=== PATIENT | male | born 1945 | race Caucasian/White ===

== ENCOUNTER 2021-11-27 11:09 | Outpatient (CLI) | payer MEDICARE, SELFPAY ==
[2021-11-27 10:42] LABS: Albumin* 4.9 g/dL (3.3-5.0)
[2021-11-27 10:43] LABS: Chloride* 102 mmol/L (96-114); Potassium* 4.8 mmol/L (3.6-5.1); Sodium* 140 mmol/L (135-149)
[2021-11-27 10:45] LABS: Bilirubin Total* 1.1 mg/dL (0.1-1.5); Carbon Dioxide* 26 mmol/L (20-32); Cholesterol* 170 mg/dL (90-199); Creatinine* 0.8 mg/dL (0.5-1.5); Estimated Glomerular Filt Rate 93 ml/min; Total Protein* 7.8 g/dL (6.0-8.3)
[2021-11-27 10:46] LABS: Alanine Aminotransferase* 29 U/L (4-50); Alkaline Phosphatase* 103 U/L (40-150); Aspartate Amino Transferase* 28 U/L (12-35); Blood Urea Nitrogen* 15 mg/dL (7-30); Calcium* 9.7 mg/dL (8.4-10.6); Glucose* 272 mg/dL (60-115); HDL Cholesterol* 44 mg/dL (>=40); LDL Cholesterol Calculated 30 mg/dL (<100); Triglycerides* 481 mg/dL (40-149)
[2021-11-27 11:12] LABS: PSA Screen* 0.56 ng/mL (0.10-4.00)
[2021-11-27 11:14] LABS: Microalbumin Creatinine Ratio 10 mg/g (0-30); Microalbumin Urine 2 mg/dL
== END 2021-11-27 11:10 | disposition home or self-care (01) ==
PROVIDERS: PCP Internal Medicine; Visit Provider Internal Medicine
DX: E78.5 Hyperlipidemia, unspecified (principal); E11.9 Type 2 diabetes mellitus without complications; Z12.5 Encounter for screening for malignant neoplasm of prostate; I10 Essential (primary) hypertension
CPT/HCPCS: 80053; 80061; 82043; 82570; 84153

== ENCOUNTER 2022-07-01 07:45 | Outpatient (CLI) | payer MEDICARE, SELFPAY | END 2022-07-01 07:46 | disposition home or self-care (01) | PROVIDERS: PCP Internal Medicine; Visit Provider Internal Medicine | DX: E11.9 Type 2 diabetes mellitus without complications (principal); I10 Essential (primary) hypertension; E78.5 Hyperlipidemia, unspecified | CPT/HCPCS: 80053; 80061; 82043; 82570 ==

== ENCOUNTER 2023-01-06 08:06 | Outpatient (CLI) | payer MEDICARE, SELFPAY | END 2023-01-06 08:07 | disposition home or self-care (01) | LOC: NFLDREF 01-07 11:43 | PROVIDERS: PCP Internal Medicine; Referring Provider Internal Medicine; Visit Provider Internal Medicine | DX: E11.9 Type 2 diabetes mellitus without complications (principal); E78.5 Hyperlipidemia, unspecified; I10 Essential (primary) hypertension; Z12.5 Encounter for screening for malignant neoplasm of prostate | CPT/HCPCS: 80053; 80061; 84153 ==

== ENCOUNTER 2023-03-23 07:22 | Day surgery (SDC) | payer MEDICARE, SELFPAY ==
[2023-03-23] MEDS: KETOROLAC OPHTH 0.5% 1 DROP EYE-LEFT ×3 (07:15→07:25)
[2023-03-23] MEDS: TETRACAINE 0.5% OPHTH 1 DROP EYE-LEFT ×2 (07:15→07:20)
--- OUTSIDE RECORDS SUMMARY | 2023-03-23 07:25 | XMS_ITS | Encounter Summary ---
Author Name Unknown Organization [facility] Address [address] [place] [address] Care Team Providers Care Cross Tie Tram Loader Name Role Phone Elsewhere, Pcp Primary Care Provider Unavailabl e Encounter Details Date Type Department Care Team (Latest Contact Info) Description 03/15/2023 Clinical Communication Department of Ophthalmology in [place], [place] [address] [place] [address] Madison Caicedo M.D. [address] [place] [phone] Social History Tobacco Use Types Packs/Day Years Used Date Smoking Tobacco: Never Smokeless Tobacco: Never Nutrition Answer Date Recorded Nutrition: EVOO Fat Source Unknown 05/01 Nutrition: Servings of Fruits/Vegetables per Day Not on file 05/01/2020 Dental Answer Date Recorded Dental: Regular Dentist Unknown 05/02/19 Sex and Gender Information Value Date Recorded Sex Assigned at Male 12/14/2022 12:21 PM CDT Gender Identity Male 12/14/2022 12:21 PM CDT Sexual Orientation Straight 12/14/2022 12 :21 PM CDT documented as of this encounter Miscellaneous Notes * Telephone Encounter - Destini Maldonado - 03/15/2023 1:02 PM CST Pt [phone], Mr. Arthur, is scheduled to see Dr. Caicedo on 04/20, but is having cataract surgery (elsewhere) that same day. Please advise when to reschedule pt (first available, or is a certain amount time needed between cataract surgery and follow up/inj?) Dr. Caicedo doesn't have anything available prior to 04/20. Thank you! *Inj schedulers, please call pt when able to reschedule. ING PRIZER documented in this encounter Plan of Treatment Upcoming Encounters Date Type Department Care Team (Latest Contact Info) Description 04/18/2023 1:10 PM BOOKING PRIZER Ancillary Procedure Department of Ophthalmology in [address] [phone] 04/18/2023 1:30 PM BOOKING PRIZER Appointment Outpatient Procedure Center in [address] [phone] Madison Caicedo M.D. [address] [place] [phone] Discharge Disposition: Home or Self Care 05/23/2023 9:45 AM CDT Clinical Communication Virtual Review in [address] [address] 05/26/2023 8:30 AM CDT Ancillary Procedure Department of Ophthalmology in [address] [phone] Madison Caicedo M.D. [address] [place] [phone] 05/26/2023 9:00 AM CDT Ancillary Procedure Department of Ophthalmology in [address] [phone] Madison Caicedo M.D. [address] [place] [phone] 05/26/2023 9:15 AM CDT Office Visit Department of Ophthalmology in [address] [phone] Madison Caicedo M.D. [address] [place] [phone] 05/26/2023 1:20 PM CDT Appointment Outpatient Procedure Center in [place], [place] [address] [place] [address] Madison Caicedo M.D. [address] [place] [phone] documented as of this encounter Visit Diagnoses Not on filedocumented in this encounter Care Teams Cross Tie Tram Loader Relationship Specialty Start Date End Date Elsewhere, Pcp PCP - General Family Medicine 02/17/17 documented as of this encounter
--- OUTSIDE RECORDS SUMMARY | 2023-03-23 07:25 | XMS_ITS ---
Author Name Unknown Organization [facility] Address [address] [place] [address] Care Team Providers Care Securities Supervisor Name Role Phone Unavailable Unavailable Unavailable Surgery Details Not on file Complications Check Surgery Details section. Procedure Estimated Blood Loss Check Surgery Details section. Procedure Findings Check Surgery Details section. Procedure Specimens Taken Check Surgery Details section.
--- OUTSIDE RECORDS SUMMARY | 2023-03-23 07:25 | XMS_ITS | Referral Summary ---
Author Name Unknown Organization [facility] Address [address] [place] [id number] Care Team Providers Care Station Operator Name Role Phone Elsewhere, Pcp Primary Care Provider Unavailabl e Source Comments Patient records contain information from all sites at [facility]. For routine questions regarding patient records, call [phone] during business hours, M-F 8:00 AM - 5:00 PM Central Time. Record requests for emergency care only can be directed to [phone] at any time.[facility] Encounters Date Type Department Care Team Description 03/16/2023 Orders Only Department of Ophthalmology in [place], [place] [address] [place] [phone] Sydnie Rivero, C.O.A. 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 Discharge Disposition: Home or Self Care 03/15/2023 Clinical Communication Department of Ophthalmology in [place], [place] [address] [place] [address] Madison Caicedo M.D. 03/15/2023 1:44 PM SPEECH PATHOLOGY ASSISTANT - 03/15/2023 1:45 PM SPEECH PATHOLOGY ASSISTANT Hospital Encounter Outpatient Procedure Center in [place], [place] [address] [place] [phone] Madison Caicedo M.D. 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 Discharge Disposition: Home or Self Care 02/15/2023 1:42 PM SPEECH PATHOLOGY ASSISTANT - 02/15/2023 2:28 PM SPEECH PATHOLOGY ASSISTANT Hospital Encounter Outpatient Procedure Center in [place], [place] [address] [place] [phone] Madison Caicedo M.D. 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 Discharge Disposition: Home or Self Care 01/18/2023 2:00 PM SPEECH PATHOLOGY ASSISTANT Ancillary Procedure Department of Ophthalmology in [place], [place] [address] [place] [phone] Madison Caicedo M.D. 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 Discharge Disposition: Home or Self Care 12/21/2022 2:20 PM CDT Ancillary Procedure Department of Ophthalmology in [place], [place] [address] [place] [phone] Madison Caicedo M.D. 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 0 05/07/2014 Active metFORMIN (FORTAMET) 500 mg 24 hr tablet Take 3 tablets by mouth 2 (two) times a day. 3 tablets in AM, 2 tablets in PM with meal 0 05/07/2014 Active ramipril (ALTACE) 10 mg capsule Take 2 capsules by mouth daily. 0 05/07/2014 Active simvastatin (ZOCOR) 40 mg tablet Take 1 tablet by mouth daily. 0 05/07/2014 Active polyvinyl alcohol (NU-TEARS) 1.4 % ophthalmic solution Administer 1 drop into both eyes as needed. 0 Active Jardiance 10 mg tablet Take 10 mg by mouth every morning. for diabetes 0 03/31/2022 Active blood sugar diagnostic strips every other day. 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) 1 drop right eye As needed 06/10/2022 06/09/2023 Active povidone-iodine 5 % ophthalmic solution 1 drop (BETADINE)Indications:D iabetes Mellitus Due To Underlying Condition With 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) 1 drop right eye As needed 06/10/2022 06/09/2023 Active carboxymethylcellulose 1 % ophthalmic solution 1 drop (THERATEARS)Indications :Diabetes Mellitus Due To Underlying Condition With 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) 1 drop right eye As needed 06/10/2022 06/09/2023 Active white petrolatum-mineral oil ophthalmic ointment 0.25 inchIndications:Diabete s Mellitus Due To Underlying Condition With 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) 0.25 inch right eye As needed 06/10/2022 06/09/2023 Active balanced salt solution ophthalmic irrigation 30 mL (BSS)Indications:Diabet es Mellitus Due To Underlying Condition With 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) 30 mL right eye As needed 06/10/2022 06/09/2023 Active tetracaine (PF) 0.5 % ophthalmic solution 1 drop (ALTACAINE)Indications: Diabetes Mellitus Due To Underlying Condition With 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) 1 drop right eye As needed 06/10/2022 06/09/2023 Active bevacizumab intraocular injection 1.25 mg (AVASTIN)Indications:Di abetes Mellitus Due To Underlying Condition With 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) 1.25 mg vtre As needed 03/15/2023 03/15/2023 Ended Active Problems Problem Noted Date Diagnosed Date Diabetes Mellitus Type 2 Wit h Moderate Nonproliferative Diabetic Retinopathy With Macular Edema Right Eye 10/13/2022 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 10/13/2022 Diabetes Mellitus Due To Und erlying Condition With Severe Nonproliferative Diabetic Retinopathy Without Macular Edema Left Eye Hyperglycemic 06/10/2022 Diabetes Mellitus Due To Und erlying Condition With 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 06/10/2022 Diabetes Mellitus Type 2 Wit h Mild Nonproliferative Diabetic Retinopathy With Macular Edema Hypoglycemic Bilateral 07/20/2016 Diabetes Mellitus Type 2 Macular Edema 7 Hypertension 03/16/2010 Overview: Hypertension Diabetes Mellitus Type 2 03/16/2010 Overview: Diabetes mellitus type II Resolved Problems Problem Noted Date Diagnosed Date Resolved Date Diabetes Mellitus Type 2 Wit h Mild Nonproliferative Diabetic Retinopathy With Macular Edema Right Eye 10/13/2022 10/13/2022 Immunizations Name Administration Dates Next Due Influenza, Unspecified 01/16/2010 Tetanus Toxoid, Adsorbed (discontinued) 04/11/19 06 Social History Tobacco Use Types Packs/Day Years Used Date Smoking Tobacco: Never Smokeless Tobacco: Never Tobacco Cessation:Counseling Given: Not Answered Nutrition Answer Date Recorded Nutrition: EVOO Fat Source Unknown 05/01 Nutrition: Servings of Fruits/Vegetables per Day Not on file 05/01/2020 Dental Answer Date Recorded Dental: Regular Dentist Unknown 05/02/19 Sex and Gender Information Value Date Recorded Sex Assigned at Male 12/14/2022 12:21 PM CDT Gender Identity Male 12/14/2022 12:21 PM CDT Sexual Orientation Straight 12/14/2022 12 :21 PM CDT Plan of Treatment Upcoming Encounters Date Type Department Care Team (Latest Contact Info) Description 04/18/2023 1:10 PM SPEECH PATHOLOGY ASSISTANT Ancillary Procedure Department of Ophthalmology in [place], [place] [address] [place] [phone] 04/18/2023 1:30 PM SPEECH PATHOLOGY ASSISTANT Appointment Outpatient Procedure Center in [place], [place] [address] [place] [phone] Madison Caicedo M.D. [address] [place] [phone] Discharge Disposition: Home or Self Care 05/23/2023 9:45 AM CDT Clinical Communication Virtual Review in [place], [place] [address] [place] [address] 05/26/2023 8:30 AM CDT Ancillary Procedure Department of Ophthalmology in [place], [place] [address] [place] [phone] Madison Caicedo M.D. [address] [place] [phone] 05/26/2023 9:00 AM CDT Ancillary Procedure Department of Ophthalmology in [address] [phone] Madison Caicedo M.D. [address] [place] [phone] 05/26/2023 9:15 AM CDT Office Visit Department of Ophthalmology in [place], [place] [address] [place] [phone] Madison Caicedo M.D. [address] [place] [phone] 05/26/2023 1:20 PM CDT Appointment Outpatient Procedure Center in [place], [place] [address] [place] [phone] Madison Caicedo M.D. 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) INTRAVITREAL INJECTION, PHARMACOLOGIC AGENT - OD - RIGHT EYE Routine 02/15/2023 2:29 PM SPEECH PATHOLOGY ASSISTANT 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) INTRAVITREAL INJECTION, PHARMACOLOGIC AGENT - OD - RIGHT EYE - RST GONDA SCHEDULING ORDER Routine 02/15/2023 1:42 PM SPEECH PATHOLOGY ASSISTANT 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) INTRAVITREAL INJECTION, PHARMACOLOGIC AGENT - OD - RIGHT EYE Routine 01/18/2023 2:54 PM SPEECH PATHOLOGY ASSISTANT 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) INTRAVITREAL INJECTION, PHARMACOLOGIC AGENT - OD - RIGHT EYE - RST GONDA SCHEDULING ORDER Routine 01/18/2023 1:38 PM SPEECH PATHOLOGY ASSISTANT 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) INTRAVITREAL INJECTION, PHARMACOLOGIC AGENT - OD - RIGHT EYE Routine 12/21/2022 2:50 PM CDT 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 - 03/15/2023 2:09 PM SPEECH PATHOLOGY ASSISTANT Pre-Procedure Verification Pre-procedure verification conducted to verify correct patient identity, procedure to be performed and, as applicable, correct side and site. Patient ID band validated and present. Patient consent obtained. 12/21/2022. Time Out Confirmed correct patient, procedure, site, and patient consented. Anesthesia Topical anesthesia was used. Pre/Post Procedure prep and meds used were Celluvisc 1-10 drops, Povidone 5% 1-10 drops, Povidone 10% swabs x 3 to lids and lashes, Proparacaine 0.5% 1-10 drops, Tetracaine 0.5% 1-10 drops. Procedure Details Injection: 1.25 mg bevacizumab 25 mg/mL ??Route: intravitreal, Site: Right Eye ??[facility]: 48803-886-42 Balanced salt solution irrigation to injected eye after the injection was Done. Hand motion was present. Count fingers was correct. Reviewed instructions and patient verbalizes understanding. Notes Patient oriented to outpatient procedure center. ??Reviewed process for scheduled procedure, and pain management including pain scale. Patient declines written post-procedure material or previously received brochure. ?? Information reviewed and understanding assessed by teach-back. ??Follow-up appointments discussed and return schedule given if requested. Avastin RE Lot # [id number] Exp. 04/08/23 Filemon Mendez M.D. OPH CLINIC PROCED URES * Intravitreal Injection, Pharmacologic Agent - OD - Right Eye (02/15/2023 2:29 PM SPEECH PATHOLOGY ASSISTANT) Narrative Bebe Duran M.D. - 02/15/2023 3:11 PM SPEECH PATHOLOGY ASSISTANT Pre-Procedure Verification Pre-procedure verification conducted to verify correct patient identity, procedure to be performed and, as applicable, correct side and site. Patient ID band validated and present. Patient consent obtained. 12/21/2022. Time Out Confirmed correct patient, procedure, site, and patient consented. Anesthesia Topical anesthesia was used. Pre/Post Procedure prep and meds used were Celluvisc 1-10 drops, Povidone 5% 1-10 drops, Povidone 10% swabs x 3 to lids and lashes, Proparacaine 0.5% 1-10 drops, Tetracaine 0.5% 1-10 drops. Procedure Details Injection: 1.25 mg bevacizumab 25 mg/mL ??Route: intravitreal, Site: Right Eye ??[facility]: 57951-905-69 Balanced salt solution irrigation to injected eye after the injection was Done. Hand motion was present. Count fingers was correct. Reviewed instructions and patient verbalizes understanding. Notes Patient oriented to outpatient procedure center. ??Reviewed process for scheduled procedure, and pain management including pain scale. Patient declines written post-procedure material or previously received brochure. ?? Information reviewed and understanding assessed by teach-back. ??Follow-up appointments discussed and return schedule given if requested. Avastin RE Lot # [id number] Exp. 03/23/23 Bebe Streeter M.D. OPH CLINIC PRO CEDURES * Intravitreal Injection, Pharmacologic Agent - OD - Right Eye (01/18/2023 2:54 PM SPEECH PATHOLOGY ASSISTANT) Narrative Rj Bowen M.D. - 01/18/2023 5:29 PM SPEECH PATHOLOGY ASSISTANT Pre-Procedure Verification Pre-procedure verification conducted to verify correct patient identity, procedure to be performed and, as applicable, correct side and site. Patient ID band validated and present. Patient consent obtained. 12/21/2022. Time Out Confirmed correct patient, procedure, site, and patient consented. Anesthesia Topical anesthesia was used. Pre/Post Procedure prep and meds used were Celluvisc 1-10 drops, Povidone 5% 1-10 drops, Povidone 10% swabs x 3 to lids and lashes, Proparacaine 0.5% 1-10 drops, Tetracaine 0.5% 1-10 drops. Procedure Details Injection: 1.25 mg bevacizumab 25 mg/mL ??Route: intravitreal, Site: Right Eye ??[place]: 23652-291-98 Balanced salt solution irrigation to injected eye after the injection was Done. Hand motion was present. Count fingers was correct. Reviewed instructions and patient verbalizes understanding. Notes Patient oriented to outpatient procedure center. ??Reviewed process for scheduled procedure, and pain management including pain scale. Patient declines written post-procedure material or previously received brochure. ?? Information reviewed and understanding assessed by teach-back. ??Follow-up appointments discussed and return schedule given if requested. Avastin RE Lot # [id number] Exp. 02/04/23 Rj Bowen M.D. OPH CLINIC PROCEDU RES * Intravitreal Injection, Pharmacologic Agent - OD - Right Eye (12/21/2022 2:50 PM CDT) Narrative Filemon Mendez M.D. - 12/21/2022 4:18 PM CDT Pre-Procedure Verification Pre-procedure verification conducted to verify correct patient identity, procedure to be performed and, as applicable, correct side and site. Patient ID band validated and present. Patient consent obtained. 12/21/2022. Time Out Confirmed correct patient, procedure, site, and patient consented. Anesthesia Topical anesthesia was used. Pre/Post Procedure prep and meds used were Celluvisc 1-10 drops, Povidone 5% 1-10 drops, Povidone 10% swabs x 3 to lids and lashes, Proparacaine 0.5% 1-10 drops, Tetracaine 0.5% 1-10 drops. Procedure Details Injection: 1.25 mg bevacizumab 25 mg/mL ??Route: intravitreal, Site: Right Eye ??[facility]: 41456-950-34 Balanced salt solution irrigation to injected eye after the injection was Done. Hand motion was present. Count fingers was correct. Reviewed instructions and patient verbalizes understanding. Notes Patient oriented to outpatient procedure center. ??Reviewed process for scheduled procedure, and pain management including pain scale. Patient declines written post-procedure material or previously received brochure. ?? Information reviewed and understanding assessed by teach-back. ??Follow-up appointments discussed and return schedule given if requested. Avastin RE Lot # [id number] Exp. 01/13/23 Filemon Mendez M.D. [facility] PROCED URES from Last 3 Months Care Teams Station Operator Relationship Specialty Start Date End Date Elsewhere, Pcp PCP - General Family Medicine 02/17/17
--- OUTSIDE RECORDS SUMMARY | 2023-03-23 07:25 | XMS_ITS | Encounter Summary ---
Author Name Unknown Organization [facility] Address [address] [place] [address] Care Team Providers Care Wire Puller Name Role Phone Elsewhere, Pcp Primary Care Provider Unavailabl e Encounter Details Date Type Department Care Team (Latest Contact Info) Description 03/15/2023 1:46 PM STOCK SELECTOR - 03/15/2023 11:59 PM STOCK SELECTOR Hospital Encounter Outpatient Procedure Center in [place], [place] [address] [place] [address] Filemon Mendez M.D. [address] [place] [address] Discharge Disposition: Home or Self Care Social History Tobacco Use Types Packs/Day Years [...] PM CDT documented as of this encounter Medications at Time of Discharge Medication Sig Dispensed Refills Start Date End Date aspirin [address] tablet Take 1 tablet by mouth daily. 0 05/07/2014 blood sugar diagnostic strips every other day. 0 03/31/2016 Jardiance 10 mg tablet Take 10 mg by mouth every morning. for diabetes 0 03/31/2022 metFORMIN (FORTAMET) 500 mg 24 hr tablet Take 3 tablets by mouth 2 (two) times a day. 3 tablets in AM, 2 tablets in PM with meal 0 05/07/2014 polyvinyl alcohol (NU-TEARS) 1.4 % ophthalmic solution Administer 1 drop into both eyes as needed. 0 ramipril (ALTACE) 10 mg capsule Take 2 capsules by mouth daily. 0 05/07/2014 simvastatin (ZOCOR) 40 mg tablet Take 1 tablet by mouth daily. 0 05/07/2014 documented as of this encounter Plan of Treatment Upcoming Encounters Date Type Department Care Team (Latest Contact Info) Description 04/18/2023 1:10 PM STOCK SELECTOR Ancillary Procedure Department of Ophthalmology in [address] [phone] 04/18/2023 1:30 PM STOCK SELECTOR Appointment Outpatient Procedure Center in [address] [address] Madison Caicedo M.D. [address] [place] [phone] Discharge Disposition: Home or Self Care 05/23/2023 9:45 AM CDT Clinical Communication Virtual Review in [place], [place] [address] [place] [address] 05/26/2023 8:30 AM CDT Ancillary Procedure Department of Ophthalmology in [address] [address] Madison Caicedo M.D. [address] [place] [phone] 05/26/2023 9:00 AM CDT Ancillary Procedure Department of Ophthalmology in [address] [address] Madison Caicedo M.D. [address] [place] [phone] 05/26/2023 9:15 AM CDT Office Visit Department of Ophthalmology in [place], [place] [address] [place] [address] Madison Caicedo M.D. [address] [place] [phone] 05/26/2023 1:20 PM CDT Appointment Outpatient Procedure Center in [place], [place] [address] [place] [address] Madison Caicedo M.D. 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 - 03/15/2023 2:09 PM STOCK SELECTOR Pre-Procedure Verification Pre-procedure verification conducted to verify [...] 25 mg/mL ??Route: intravitreal, Site: Right Eye ??[facility]: 62047-363-65 Balanced salt solution irrigation to injected eye [...] given if requested. Avastin RE Lot # [id number] Exp. 04/08/23 Filemon Mendez M.D. [facility] PROCED URES documented in this encounter Visit Diagnoses Not on filedocumented in this encounter Care Teams Wire Puller Relationship Specialty Start Date End Date Elsewhere, Pcp PCP - General Family Medicine 02/17/17 documented as of this encounter
--- OUTSIDE RECORDS SUMMARY | 2023-03-23 07:25 | XMS_ITS | Encounter Summary ---
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 [address] [place] [address] [facility] Referral ID Status Reason Start Date Expiration Date V isits Requested Visits Authorized [id number] Authorized 10/13/2022 10/13/2023 6 6 Encounter Details Date Type Department Care Team (Latest Contact Info) Description 03/15/2023 1:44 PM CREASING MACHINE OPERATOR - 03/15/2023 1:45 PM CREASING MACHINE OPERATOR Hospital Encounter Outpatient Procedure Center in [place], [place] [address] [place] [address] Madison Caicedo M.D. 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 [address] [place] [phone] Discharge Disposition: Home or Self Care 05/23/2023 9:45 AM CDT Clinical Communication Virtual Review in [place], [place] [address] [place] [address] 05/26/2023 8:30 AM CDT Ancillary Procedure Department of Ophthalmology in [address] [address] Madison Caicedo M.D. [address] [place] [phone] 05/26/2023 9:00 AM CDT Ancillary Procedure Department of Ophthalmology in [place], [place] [address] [place] [phone] Madison Caicedo M.D. [address] [place] [phone] 05/26/2023 9:15 AM CDT Office Visit Department of Ophthalmology in [address] [address] Madison Caicedo M.D. [address] [place] [phone] 05/26/2023 1:20 PM CDT Appointment Outpatient Procedure Center in [address] [address] Madison Caicedo M.D. 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 - 03/15/2023 2:09 PM CREASING MACHINE OPERATOR Pre-Procedure Verification Pre-procedure verification conducted to verify [...] 25 mg/mL ??Route: intravitreal, Site: Right Eye ??[facility]: [address]6498-200-65 Balanced salt solution irrigation to injected eye [...] given if requested. Avastin RE Lot # [id number] Exp. 04/08/23 Filemon Mendez M.D. 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) documented in this encounter Administered Medications Active Administered Medications - up to 3 most recent administrations Medication Order MAR Action Action Date Dose Rate Site balanced salt solution ophthalmic irrigation 30 mL (BSS) 30 mL, right eye, As needed, DIRECTED OPHTHALMIC IN OR, Starting on [facility] 06/10/22 at 0918, For 365 days Given 03/15/2023 1:47 PM CREASING MACHINE OPERATOR 30 mL Given 02/15/2023 2:30 PM CREASING MACHINE OPERATOR 30 mL Given 01/18/2023 2:55 PM CREASING MACHINE OPERATOR 30 mL carboxymethylcellulose 1 % ophthalmic solution 1 drop (THERATEARS) 1 drop, right eye, As needed, dry eyes, DIRECTED OPHTHALMIC IN OR, Starting on [facility] 06/10/22 at 0918, For 365 days Given 03/15/2023 1:48 PM CREASING MACHINE OPERATOR 1 drop Given 02/15/2023 2:30 PM CREASING MACHINE OPERATOR 1 drop Given 01/18/2023 2:55 PM CREASING MACHINE OPERATOR 1 drop povidone-iodine 5 % ophthalmic solution 1 drop (BETADINE) 1 drop, right eye, As needed, irrigation, DIRECTED OPHTHALMIC IN OR, Starting on [facility] 06/10/22 at 0918, For 365 days, Irrigate ocular and periocular region and leave for 2 mins; then flush with sterile saline solution. Given 03/15/2023 1:48 PM CREASING MACHINE OPERATOR 1 drop Given 02/15/2023 2:30 PM CREASING MACHINE OPERATOR 1 drop Given 01/18/2023 2:55 PM CREASING MACHINE OPERATOR 1 drop proparacaine 0.5 % ophthalmic solution 1 drop (ALCAINE) 1 drop, right eye, As needed, DIRECTED OPHTHALMIC IN OR, Starting on [facility] 06/10/22 at 0918, For 365 days Given 03/15/2023 1:48 PM CREASING MACHINE OPERATOR 1 drop Given 02/15/2023 2:30 PM CREASING MACHINE OPERATOR 1 drop Given 01/18/2023 2:55 PM CREASING MACHINE OPERATOR 1 drop tetracaine (PF) 0.5 % ophthalmic solution 1 drop (ALTACAINE) 1 drop, right eye, As needed, DIRECTED OPHTHALMIC IN OR, Starting on [facility] 06/10/22 at 0918, For 365 days Given 03/15/2023 1:47 PM CREASING MACHINE OPERATOR 1 drop Given 02/15/2023 2:30 PM CREASING MACHINE OPERATOR 1 drop Given 01/18/2023 2:55 PM CREASING MACHINE OPERATOR 1 drop Inactive Administered Medications - up to 3 most recent administrations Medication Order MAR Action Action Date Dose Rate Site bevacizumab intraocular injection 1.25 mg (AVASTIN) 1.25 mg, intravitreal, As needed, DIRECTED OPHTHALMIC IN OR, Starting on Tue03/15/23 at 1409, Inject into right eye. Given 03/15/2023 2:09 PM CREASING MACHINE OPERATOR 1.25 mg Right Eye documented in this encounter Care Teams Information Consultant Relationship Specialty Start Date End Date Elsewhere, Pcp PCP - General Family Medicine 02/17/17 documented as of this encounter
--- OUTSIDE RECORDS SUMMARY | 2023-03-23 07:25 | XMS_ITS | Encounter Summary ---
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 [address] [place] [address] [facility] Referral ID Status Reason Start Date Expiration Date Visits Re quested Visits Authorized [id number] Closed 10/13/2022 10/13/2023 5 5 Encounter Details Date Type Department Care Team (Latest Contact Info) Description 03/15/2023 1:40 PM SUPERINTENDENT REFUSE DISPOSAL Ancillary Procedure Department of Ophthalmology in [place], [place] [address] [place] [phone] Madison Caicedo M.D. 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 [address] [place] [phone] Discharge Disposition: Home or Self Care 05/23/2023 9:45 AM CDT Clinical Communication Virtual Review in [address] [address] 05/26/2023 8:30 AM CDT Ancillary Procedure Department of Ophthalmology in [address] [address] Madison Caicedo M.D. [address] [place] [phone] 05/26/2023 9:00 AM CDT Ancillary Procedure Department of Ophthalmology in [address] [phone] Madison Caicedo M.D. [address] [place] [phone] 05/26/2023 9:15 AM CDT Office Visit Department of Ophthalmology in [address] [address] Madison Caicedo M.D. [address] [place] [phone] 05/26/2023 1:20 PM CDT Appointment Outpatient Procedure Center in [place], [place] [address] [place] [address] Madison Caicedo M.D. 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
--- OUTSIDE RECORDS SUMMARY | 2023-03-23 07:25 | XMS_ITS | Clinical Summary ---
Author Name Unknown Organization [facility] Address [address] [place] [address] Care Team Providers Care Box Blank Machine Feeder Name Role Phone Elsewhere, Pcp Primary Care Provider Unavailabl e Source Comments Patient records contain information from all sites at [facility]. For routine questions regarding patient records, call [phone] during business hours, M-F 8:00 AM - 5:00 PM Central Time. Record requests for emergency care only can be directed to [phone] at any time.[facility] Allergies No known active allergies Medications Medication [...] strips every other day. 0 03/31/2016 [facility] Clinic, or Other Facility Administered [...] With Macular Edema Right Eye 10/13/2022 10/13/2022 Encounters Date Type Department Care Team Description 03/16/2023 Orders Only Department of Ophthalmology in [place], [place] [address] [place] [phone] Sydnie Rivero C.O.A. 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 Discharge Disposition: Home or Self Care 03/15/2023 1:44 PM LOCKER OPERATOR - 03/15/2023 1:45 PM LOCKER OPERATOR Hospital Encounter Outpatient Procedure Center in [place], [place] [address] [place] [address] Madison Caicedo M.D. 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 Discharge Disposition: Home or Self Care 02/15/2023 2:00 PM LOCKER OPERATOR Ancillary Procedure Department of Ophthalmology in [place], [place] [address] [place] [phone] Madison Caicedo M.D. 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 Discharge Disposition: Home or Self Care 01/18/2023 2:00 PM LOCKER OPERATOR Ancillary Procedure Department of Ophthalmology in [address] [address] aMdison Caicedo M.D. 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 Discharge Disposition: Home or Self Care 12/21/2022 2:20 PM CDT Ancillary Procedure Department of Ophthalmology in [place], [place] [address] [place] [address] Madison Caicedo M.D. 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) Discharge Disposition: Home or Self Care from Last 3 Months Immunizations Name Administration Dates Next Due Influenza, Unspecified 01/16/2010 Tetanus Toxoid, Adsorbed (discontinued) 04/11/19 06 Family History Medical History Relation Name Comments Amblyopia Neg Hx Blindness Neg Hx Cataracts Neg Hx Glaucoma Neg Hx Macular degeneration Neg Hx Retinal degeneration Neg Hx Retinal detachment Neg Hx Strabismus Neg Hx Vision loss Neg Hx Social History Tobacco Use Types Packs/Day Years [...] (Latest Contact Info) Description 04/18/2023 1:10 PM LOCKER OPERATOR Ancillary Procedure Department of Ophthalmology in [address] [address] 04/18/2023 1:30 PM LOCKER OPERATOR Appointment Outpatient Procedure Center in [place], [place] [address] [place] [phone] Madison Caicedo M.D. [address] [place] [phone] Discharge Disposition: Home or Self Care 05/23/2023 9:45 AM CDT Clinical Communication Virtual Review in [place], [place] 200 [place] [address] 05/26/2023 8:30 AM CDT Ancillary Procedure Department of Ophthalmology in [address] [address] Madison Caicedo M.D. [address] [place] [phone] 05/26/2023 9:00 AM CDT Ancillary Procedure Department of Ophthalmology in [address] [address] Madison Caicedo M.D. [address] [place] [phone] 05/26/2023 9:15 AM CDT Office Visit Department of Ophthalmology in [address] [address] Madison Caicedo M.D. [address] [place] [phone] 05/26/2023 1:20 PM CDT Appointment Outpatient Procedure Center in [place], [place] [address] [place] [phone] Madison Caicedo M.D. [address] [place] [phone] Health Maintenance Due Date Last Done Comments CT Colonography 1947 Cologuard 1947 Colonoscopy 1947 Colorectal Cancer Screening 1947 Creatinine Level (Kidney Fun ction Test) 1947 Diabetic Office Visit with F oot Exam 1947 FIT 1947 Hemoglobin A1C 1947 Hepatitis C Screening 1947 Lipid (Cholesterol) Screening 1947 Office Visit for Blood Press ure Check / Re-check 1947 Potassium Level 1947 Sodium Level 1947 Urine Albumin 1947 Zoster Vaccines (1 of 2) 07/03/1997 Hepatitis B Vaccines (1 of 3 - Risk 3-dose series) 2007 Pneumococcal vaccine (65+ ye ars) (3 of 3 - PPSV23 or PCV20) 08/21/2015 08/20/2014, 12/06/2006 Depression Screening (Annual PHQ-2) 02/28/2023 Dilated Eye Exam 10/14/2023 10/13/2022, 12/2022, 06/08/2022, Additional history exists DTaP,Tdap,and Td Vaccines (3 - Td or Tdap) 03/08/2032 03/08/2022, 07/21/2012 Influenza Vaccine Completed 11/25/2022, , 12/08/2020, Additional history exists COVID-19 Vaccine Completed 12/11/2022, , 12/19/2020, Additional history exists Fall Risk Screen (Annual) Completed 03/15/2023 Procedures Procedure Name Priority Date/Time Associated Diagnosis Comments INTRAVITREAL INJECTION, PHARMACOLOGIC AGENT - OD - RIGHT EYE Routine 03/15/2023 1:46 PM LOCKER OPERATOR 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) INTRAVITREAL INJECTION, PHARMACOLOGIC AGENT - OD - RIGHT EYE - RST GONDA SCHEDULING ORDER Routine 03/15/2023 1:44 PM LOCKER OPERATOR 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) INTRAVITREAL INJECTION, PHARMACOLOGIC AGENT - OD - RIGHT EYE Routine 02/15/2023 2:29 PM LOCKER OPERATOR 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) INTRAVITREAL INJECTION, PHARMACOLOGIC AGENT - OD - RIGHT EYE - RST GONDA SCHEDULING ORDER Routine 02/15/2023 1:42 PM LOCKER OPERATOR 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 - 03/15/2023 2:09 PM LOCKER OPERATOR Pre-Procedure Verification Pre-procedure verification conducted to [...] 25 mg/mL ??Route: intravitreal, Site: Right Eye ??[facility]: 37480-533-18 Balanced salt solution irrigation to injected eye [...] given if requested. Avastin RE Lot # [id number] Exp. 04/08/23 Filemon Mendez M.D. [facility] PROCED [facility] * Intravitreal Injection, Pharmacologic Agent - OD - Right Eye (02/15/2023 2:29 PM LOCKER OPERATOR) Narrative Bebe Duran M.D. - 02/15/2023 3:11 PM LOCKER OPERATOR Pre-Procedure Verification Pre-procedure verification conducted to [...] 25 mg/mL ??Route: intravitreal, Site: Right Eye ??[facility]: 14447-365-43 Balanced salt solution irrigation to injected eye [...] given if requested. Avastin RE Lot # [id number] Exp. 03/23/23 Bebe Streeter M.D. [facility] PRO CEDURES * Intravitreal Injection, Pharmacologic Agent - OD - Right Eye (01/18/2023 2:54 PM LOCKER OPERATOR) Narrative Rj Bowen M.D. - 01/18/2023 5:29 PM LOCKER OPERATOR Pre-Procedure Verification Pre-procedure verification conducted to [...] 25 mg/mL ??Route: intravitreal, Site: Right Eye ??[facility]: 69896-492-14 Balanced salt solution irrigation to injected eye [...] given if requested. Avastin RE Lot # [id number] Exp. 02/04/23 Rj Bowen M.D. [facility] PROCEDU RES * Intravitreal Injection, Pharmacologic [...] 25 mg/mL ??Route: intravitreal, Site: Right Eye ??[facility]: 58384-973-68 Balanced salt solution irrigation to injected eye [...] given if requested. Avastin RE Lot # [id number] Exp. 01/13/23 Filemon Mendez M.D. [facility] PROCED URES from Last 3 Months Care Teams Box Blank Machine Feeder Relationship Specialty Start Date End Date Elsewhere, Pcp PCP - General Family Medicine 02/17/17
--- OUTSIDE RECORDS SUMMARY | 2023-03-23 07:25 | XMS_ITS | Encounter Summary ---
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 [address] [place] [phone] Discharge Disposition: Home or Self Care 05/23/2023 9:45 AM CDT Clinical Communication Virtual Review in [address] [address] 05/26/2023 8:30 AM CDT Ancillary Procedure Department of Ophthalmology in [address] [address] Madison Caicedo M.D. [address] [place] [phone] 05/26/2023 9:00 AM CDT Ancillary Procedure Department of Ophthalmology in [address] [address] Madison Caicedo M.D. [address] [place] [phone] 05/26/2023 9:15 AM CDT Office Visit Department of Ophthalmology in [address] [phone] Madison Caicedo M.D. [address] [place] [address] 05/26/2023 1:20 PM CDT Appointment Outpatient Procedure Center in [place], [place] [address] [place] [address] Madison Caicedo M.D. 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
--- OUTSIDE RECORDS SUMMARY | 2023-03-23 07:26 | XMS_ITS | Encounter Summary ---
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 [address] [place] [address] [facility] Referral ID Status Reason Start Date Expiration Date Visits Re quested Visits Authorized [id number] Closed 10/13/2022 10/13/2023 5 5 Encounter Details Date Type Department Care Team (Latest Contact Info) Description 11/17/2022 2:40 PM CDT Ancillary Procedure Department of Ophthalmology in [place], [place] [address] [place] [phone] Madison Caicedo M.D. [address] [place] [address] Diabetes Mellitus Type 2 With [...] (Latest Contact Info) Description 04/18/2023 1:10 PM BUILDING SURVEYOR Ancillary Procedure Department of Ophthalmology in [address] [address] 04/18/2023 1:30 PM BUILDING SURVEYOR Appointment Outpatient Procedure Center in [address] [address] Madison Caicedo M.D. [address] [place] [phone] Discharge Disposition: Home or Self Care 05/23/2023 9:45 AM CDT Clinical Communication Virtual Review in [address] [address] 05/26/2023 8:30 AM CDT Ancillary Procedure Department of Ophthalmology in [address] [address] Madison Caicedo M.D. [address] [place] [phone] 05/26/2023 9:00 AM CDT Ancillary Procedure Department of Ophthalmology in [address] [address] Madison Caicedo M.D. [address] [place] [phone] 05/26/2023 9:15 AM CDT Office Visit Department of Ophthalmology in [address] [address] Madison Caicedo M.D. [address] [place] [phone] 05/26/2023 1:20 PM CDT Appointment Outpatient Procedure Center in [place], [place] [address] [place] [address] Madison Caicedo M.D. 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
--- OUTSIDE RECORDS SUMMARY | 2023-03-23 07:26 | XMS_ITS | Encounter Summary ---
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 [address] [place] [address] [facility] Referral ID Status Reason Start Date Expiration Date Visits Re quested Visits Authorized [id number] Closed 10/13/2022 10/13/2023 5 5 Encounter Details Date Type Department Care Team (Latest Contact Info) Description 12/21/2022 2:20 PM CDT Ancillary Procedure Department of Ophthalmology in [place], [place] [address] [place] [phone] Madison Caicedo M.D. [address] [place] [address] Diabetes Mellitus Type 2 With [...] (Latest Contact Info) Description 04/18/2023 1:10 PM GROUNDMAN/LINEMAN Ancillary Procedure Department of Ophthalmology in [address] [address] 04/18/2023 1:30 PM GROUNDMAN/LINEMAN Appointment Outpatient Procedure Center in [address] [phone] Madison Caicedo M.D. [address] [place] [phone] Discharge Disposition: Home or Self Care 05/23/2023 9:45 AM CDT Clinical Communication Virtual Review in [address] [address] 05/26/2023 8:30 AM CDT Ancillary Procedure Department of Ophthalmology in [address] [address] Madison Caicedo M.D. [address] [place] [phone] 05/26/2023 9:00 AM CDT Ancillary Procedure Department of Ophthalmology in [address] [address] Madison Caicedo M.D. [address] [place] [phone] 05/26/2023 9:15 AM CDT Office Visit Department of Ophthalmology in [address] [address] Madison Caicedo M.D. [address] [place] [phone] 05/26/2023 1:20 PM CDT Appointment Outpatient Procedure Center in [place], [place] [address] [place] [address] Madison Caicedo M.D. 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
--- OUTSIDE RECORDS SUMMARY | 2023-03-23 07:26 | XMS_ITS | Encounter Summary ---
Author Name Unknown Organization [facility] Address [address] [place] [address] Care Team Providers Care Animal Laboratory Technician Name Role Phone Elsewhere, Pcp Primary Care Provider Unavailabl e Encounter Details Date Type Department Care Team (Latest Contact Info) Description 11/17/2022 3:03 PM CDT - 11/17/2022 11:59 PM CDT Hospital Encounter Outpatient Procedure Center in [place], [place] [address] [place] [address] Benitez Yuan M.D. [address] [place] [address] Discharge Disposition: Home or Self Care Social [...] (Latest Contact Info) Description 04/18/2023 1:10 PM LOADERS Ancillary Procedure Department of Ophthalmology in [address] [address] 04/18/2023 1:30 PM LOADERS Appointment Outpatient Procedure Center in [address] [address] Madison Caicedo M.D. [address] [place] [phone] Discharge Disposition: Home or Self Care 05/23/2023 9:45 AM CDT Clinical Communication Virtual Review in [place], [place] [address] [place] [address] 05/26/2023 8:30 AM CDT Ancillary Procedure Department of Ophthalmology in [address] [address] Madison Caicedo M.D. [address] [place] [phone] 05/26/2023 9:00 AM CDT Ancillary Procedure Department of Ophthalmology in [address] [address] Madison Caicedo M.D. [address] [place] [phone] 05/26/2023 9:15 AM CDT Office Visit Department of Ophthalmology in [place], [place] [address] [place] [address] Madison Caicedo M.D. [address] [place] [address] 05/26/2023 1:20 PM CDT Appointment Outpatient Procedure Center in [place], [place] [address] [place] [address] Madison Caicedo M.D. 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 - 11/17/2022 4:40 PM CDT Pre-Procedure Verification Pre-procedure verification conducted to verify correct patient identity, procedure to be performed and, as applicable, correct side and site. Patient ID band validated and present. Patient consent obtained. 06/10/2022. Time Out Confirmed correct patient, procedure, site, and patient consented. Anesthesia Topical anesthesia was used. Pre/Post Procedure prep and meds used were Celluvisc 1-10 drops, Povidone 5% 1-10 drops, Povidone 10% swabs x 3 to lids and lashes, Proparacaine 0.5% 1-10 drops, Tetracaine 0.5% 1-10 drops. Procedure Details Injection: 1.25 mg bevacizumab 25 mg/mL ??Route: intravitreal, Site: Right Eye ??[facility]: 15381-117-84 Balanced salt solution irrigation to injected eye [...] discussed and return schedule given if requested. Lot [id number] exp 12/28/2022 Benitez Yuan M.D. [facility] PRO CEDURES documented in this encounter Visit Diagnoses Not on filedocumented in this encounter Care Teams Animal Laboratory Technician Relationship Specialty Start Date End Date Elsewhere, Pcp PCP - General Family Medicine 02/17/17 documented as of this encounter
--- OUTSIDE RECORDS SUMMARY | 2023-03-23 07:26 | XMS_ITS | Encounter Summary ---
Author Name Unknown Organization [facility] Address [address] [place] [address] Care Team Providers Care Gun Examiner Name Role Phone Elsewhere, Pcp Primary Care Provider Unavailabl e Encounter Details Date Type Department Care Team (Latest Contact Info) Description 02/15/2023 2:29 PM STEAM CONDITIONER FILLING - 02/15/2023 11:59 PM STEAM CONDITIONER FILLING Hospital Encounter Outpatient Procedure Center in [place], [place] [address] [place] [address] Bebe Duran M.D. [address] [place] [address] Discharge Disposition: Home or Self Care Social [...] (Latest Contact Info) Description 04/18/2023 1:10 PM STEAM CONDITIONER FILLING Ancillary Procedure Department of Ophthalmology in [address] [address] 04/18/2023 1:30 PM STEAM CONDITIONER FILLING Appointment Outpatient Procedure Center in [address] [address] Madison Caicedo M.D. [address] [place] [phone] Discharge Disposition: Home or Self Care 05/23/2023 9:45 AM CDT Clinical Communication Virtual Review in [place], [place] 200 [place] [address] 05/26/2023 8:30 AM CDT Ancillary Procedure Department of Ophthalmology in [address] [address] Madison Caicedo M.D. [address] [place] [phone] 05/26/2023 9:00 AM CDT Ancillary Procedure Department of Ophthalmology in [address] [address] Madison Caicedo M.D. [address] [place] [phone] 05/26/2023 9:15 AM CDT Office Visit Department of Ophthalmology in [place], [place] [address] [place] [address] Madison Caicedo M.D. [address] [place] [address] 05/26/2023 1:20 PM CDT Appointment Outpatient Procedure Center in [place], [place] [address] [place] [address] Madison Caicedo M.D. 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 - 02/15/2023 3:11 PM STEAM CONDITIONER FILLING Pre-Procedure Verification Pre-procedure verification conducted to verify [...] 25 mg/mL ??Route: intravitreal, Site: Right Eye ??[facility]: 40488-958-00 Balanced salt solution irrigation to injected eye [...] given if requested. Avastin RE Lot # [id number] Exp. 03/23/23 Bebe Streeter M.D. [facility] PRO CEDURES documented in this encounter Visit Diagnoses Not on filedocumented in this encounter Care Teams Gun Examiner Relationship Specialty Start Date End Date Elsewhere, Pcp PCP - General Family Medicine 02/17/17 documented as of this encounter
--- OUTSIDE RECORDS SUMMARY | 2023-03-23 07:26 | XMS_ITS | Encounter Summary ---
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 [address] [place] [address] [facility] Referral ID Status Reason Start Date Expiration Date V isits Requested Visits Authorized [id number] Authorized 10/13/2022 10/13/2023 6 6 Encounter Details Date Type Department Care Team (Latest Contact Info) Description 12/21/2022 2:16 PM CDT - 12/21/2022 2:49 PM CDT Hospital Encounter Outpatient Procedure Center in [place], [place] [address] [place] [address] Madison Caicedo M.D. [address] [place] [address] Diabetes Mellitus Type 2 With Moderate Nonproliferative [...] (Latest Contact Info) Description 04/18/2023 1:10 PM TOOLROOM CHECKER Ancillary Procedure Department of Ophthalmology in [place], [place] [address] [place] [phone] 04/18/2023 1:30 PM TOOLROOM CHECKER Appointment Outpatient Procedure Center in [address] [address] Madison Caicedo M.D. [address] [place] [phone] Discharge Disposition: Home or Self Care 05/23/2023 9:45 AM CDT Clinical Communication Virtual Review in [place], [place] 200 [place] [address] 05/26/2023 8:30 AM CDT Ancillary Procedure Department of Ophthalmology in [address] [address] Madison Caicedo M.D. [address] [place] [phone] 05/26/2023 9:00 AM CDT Ancillary Procedure Department of Ophthalmology in [address] [address] Madison Caicedo M.D. [address] [place] [phone] 05/26/2023 9:15 AM CDT Office Visit Department of Ophthalmology in [address] [address] Madison Caicedo M.D. [address] [place] [phone] 05/26/2023 1:20 PM CDT Appointment Outpatient Procedure Center in [address] [address] Madison Caicedo M.D. [address] [place] [phone] documented as of this encounter Procedures Procedure [...] - Right Eye (12/21/2022 2:50 PM CDT) Filemon Ying M.D. - 12/21/2022 4:18 PM CDT Pre-Procedure [...] 25 mg/mL ??Route: intravitreal, Site: Right Eye ??[facility]: 43413-996-87 Balanced salt solution irrigation to injected eye [...] given if requested. Avastin RE Lot # [id number] Exp. 01/13/23 Filemon Mendez M.D. OPHTH CLINIC PROCED URES [...] needed, DIRECTED OPHTHALMIC IN OR, Starting on [facility] 06/10/22 at 0918, For 365 days Given 03/15/2023 1:47 PM TOOLROOM CHECKER 30 mL Given 02/15/2023 2:30 PM TOOLROOM CHECKER 30 mL Given 01/18/2023 2:55 PM TOOLROOM CHECKER 30 mL carboxymethylcellulose 1 % ophthalmic solution 1 drop (THERATEARS) 1 drop, right eye, As needed, dry eyes, DIRECTED OPHTHALMIC IN OR, Starting on [facility] 06/10/22 at 0918, For 365 days Given 03/15/2023 1:48 PM TOOLROOM CHECKER 1 drop Given 02/15/2023 2:30 PM TOOLROOM CHECKER 1 drop Given 01/18/2023 2:55 PM TOOLROOM CHECKER 1 drop povidone-iodine 5 % ophthalmic solution 1 drop (BETADINE) 1 drop, right eye, As needed, irrigation, DIRECTED OPHTHALMIC IN OR, Starting on [facility] 06/10/22 at 0918, For 365 days, Irrigate ocular and periocular region and leave for 2 mins; then flush with sterile saline solution. Given 03/15/2023 1:48 PM TOOLROOM CHECKER 1 drop Given 02/15/2023 2:30 PM TOOLROOM CHECKER 1 drop Given 01/18/2023 2:55 PM TOOLROOM CHECKER 1 drop proparacaine 0.5 % ophthalmic solution 1 drop (ALCAINE) 1 drop, right eye, As needed, DIRECTED OPHTHALMIC IN OR, Starting on [facility] 06/10/22 at 0918, For 365 days Given 03/15/2023 1:48 PM TOOLROOM CHECKER 1 drop Given 02/15/2023 2:30 PM TOOLROOM CHECKER 1 drop Given 01/18/2023 2:55 PM TOOLROOM CHECKER 1 drop tetracaine (PF) 0.5 % ophthalmic solution 1 drop (ALTACAINE) 1 drop, right eye, As needed, DIRECTED OPHTHALMIC IN OR, Starting on It[facility] 06/10/22 at 0918, For 365 days Given 03/15/2023 1:47 PM TOOLROOM CHECKER 1 drop Given 02/15/2023 2:30 PM TOOLROOM CHECKER 1 drop Given 01/18/2023 2:55 PM TOOLROOM CHECKER 1 drop Inactive Administered Medications - up to 3 most recent administrations Medication Order MAR Action Action Date Dose Rate Site bevacizumab intraocular injection 1.25 mg (AVASTIN) 1.25 mg, intravitreal, As needed, DIRECTED OPHTHALMIC IN OR, Starting on Tue12/21/22 at 1618, Inject into right eye. Given 12/21/2022 4:18 PM CDT 1.25 mg Right Eye documented in this encounter Care Teams Tool And Die Repairer Relationship Specialty Start Date End Date Elsewhere, Pcp PCP - General Family Medicine 02/17/17 documented as of this encounter
--- OUTSIDE RECORDS SUMMARY | 2023-03-23 07:26 | XMS_ITS | Encounter Summary ---
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 [address] [place] [address] [facility] Referral ID Status Reason Start Date Expiration Date V isits Requested Visits Authorized [id number] Authorized 10/13/2022 10/13/2023 6 6 Encounter Details Date Type Department Care Team (Latest Contact Info) Description 01/18/2023 1:38 PM CREDIT RISK MODELER - 01/18/2023 2:53 PM CREDIT RISK MODELER Hospital Encounter Outpatient Procedure Center in [place], [place] [address] [place] [address] Madison Caicedo M.D. [address] [place] [phone] Diabetes Mellitus Type 2 With Moderate Nonproliferative [...] (Latest Contact Info) Description 04/18/2023 1:10 PM CREDIT RISK MODELER Ancillary Procedure Department of Ophthalmology in [place], [place] [address] [place] [phone] 04/18/2023 1:30 PM CREDIT RISK MODELER Appointment Outpatient Procedure Center in [place], [place] [address] [place] [phone] Madison Caicedo M.D. [address] [place] [phone] Discharge Disposition: Home or Self Care 05/23/2023 9:45 AM CDT Clinical Communication Virtual Review in [place], [place] 200 [place] [address] 05/26/2023 8:30 AM CDT Ancillary Procedure Department of Ophthalmology in [address] [address] Madison Caicedo M.D. [address] [place] [phone] 05/26/2023 9:00 AM CDT Ancillary Procedure Department of Ophthalmology in [place], [place] [address] [place] [phone] Madison Caicedo M.D. [address] [place] [phone] 05/26/2023 9:15 AM CDT Office Visit Department of Ophthalmology in [address] [address] Madison Caicedo M.D. [address] [place] [phone] 05/26/2023 1:20 PM CDT Appointment Outpatient Procedure Center in [address] [address] Madison Caicedo M.D. 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 - 01/18/2023 5:29 PM CREDIT RISK MODELER Pre-Procedure Verification Pre-procedure verification conducted to verify [...] 25 mg/mL ??Route: intravitreal, Site: Right Eye ??[facility]: 95947-996-01 Balanced salt solution irrigation to injected eye [...] given if requested. Avastin RE Lot # [id number] Exp. 02/04/23 Rj Bowen M.D. OPHTH CLINIC PROCEDU RES documented in this encounter Visit Diagnoses Diagnosis [...] needed, DIRECTED OPHTHALMIC IN OR, Starting on [facility] 06/10/22 at 0918, For 365 days Given 03/15/2023 1:47 PM CREDIT RISK MODELER 30 mL Given 02/15/2023 2:30 PM CREDIT RISK MODELER 30 mL Given 01/18/2023 2:55 PM CREDIT RISK MODELER 30 mL carboxymethylcellulose 1 % ophthalmic solution 1 drop (THERATEARS) 1 drop, right eye, As needed, dry eyes, DIRECTED OPHTHALMIC IN OR, Starting on [facility] 06/10/22 at 0918, For 365 days Given 03/15/2023 1:48 PM CREDIT RISK MODELER 1 drop Given 02/15/2023 2:30 PM CREDIT RISK MODELER 1 drop Given 01/18/2023 2:55 PM CREDIT RISK MODELER 1 drop povidone-iodine 5 % ophthalmic solution 1 drop (BETADINE) 1 drop, right eye, As needed, irrigation, DIRECTED OPHTHALMIC IN OR, Starting on Itzel 06/10/22 at 0918, For 365 days, Irrigate ocular and periocular region and leave for 2 mins; then flush with sterile saline solution. Given 03/15/2023 1:48 PM CREDIT RISK MODELER 1 drop Given 02/15/2023 2:30 PM CREDIT RISK MODELER 1 drop Given 01/18/2023 2:55 PM CREDIT RISK MODELER 1 drop proparacaine 0.5 % ophthalmic solution 1 drop (ALCAINE) 1 drop, right eye, As needed, DIRECTED OPHTHALMIC IN OR, Starting on [facility] 06/10/22 at 0918, For 365 days Given 03/15/2023 1:48 PM CREDIT RISK MODELER 1 drop Given 02/15/2023 2:30 PM CREDIT RISK MODELER 1 drop Given 01/18/2023 2:55 PM CREDIT RISK MODELER 1 drop tetracaine (PF) 0.5 % ophthalmic solution 1 drop (ALTACAINE) 1 drop, right eye, As needed, DIRECTED OPHTHALMIC IN OR, Starting on [facility] 06/10/22 at 0918, For 365 days Given 03/15/2023 1:47 PM CREDIT RISK MODELER 1 drop Given 02/15/2023 2:30 PM CREDIT RISK MODELER 1 drop Given 01/18/2023 2:55 PM CREDIT RISK MODELER 1 drop Inactive Administered Medications - up to 3 most recent administrations Medication Order MAR Action Action Date Dose Rate Site bevacizumab intraocular injection 1.25 mg (AVASTIN) 1.25 mg, intravitreal, As needed, DIRECTED OPHTHALMIC IN OR, Starting on Tue01/18/23 at 1729, Inject into right eye. Given 01/18/2023 5:29 PM CREDIT RISK MODELER 1.25 mg Right Eye documented in this encounter Care Teams Washer Blanket Relationship Specialty Start Date End Date Elsewhere, Pcp PCP - General Family Medicine 02/17/17 documented as of this encounter
--- OUTSIDE RECORDS SUMMARY | 2023-03-23 07:26 | XMS_ITS | Encounter Summary ---
Author Name Unknown Organization [facility] Address [address] [place] [address] Care Team Providers Care [employer] Scout Name Role Phone Elsewhere, Pcp Primary Care Provider Unavailabl e Encounter Details Date Type Department Care Team (Latest Contact Info) Description 01/18/2023 2:54 PM HOME VISITOR HOME BASE HEAD START - 01/18/2023 11:59 PM HOME VISITOR HOME BASE HEAD START Hospital Encounter Outpatient Procedure Center in [place], [place] [address] [place] [address] Rj Bowen M.D. [address] [place] [address] Discharge Disposition: Home or Self Care Social [...] (Latest Contact Info) Description 04/18/2023 1:10 PM HOME VISITOR HOME BASE HEAD START Ancillary Procedure Department of Ophthalmology in [address] [phone] 04/18/2023 1:30 PM HOME VISITOR HOME BASE HEAD START Appointment Outpatient Procedure Center in [address] [phone] Madison Caicedo M.D. [address] [place] [phone] Discharge Disposition: Home or Self Care 05/23/2023 9:45 AM CDT Clinical Communication Virtual Review in [place], [place] [address] [place] [address] 05/26/2023 8:30 AM CDT Ancillary Procedure Department of Ophthalmology in [address] [address] Madison Caicedo M.D. [address] [place] [phone] 05/26/2023 9:00 AM CDT Ancillary Procedure Department of Ophthalmology in [address] [address] Madison Caicedo M.D. [address] [place] [phone] 05/26/2023 9:15 AM CDT Office Visit Department of Ophthalmology in [place], [place] [address] [place] [address] Madison Caicedo M.D. [address] [place] [phone] 05/26/2023 1:20 PM CDT Appointment Outpatient Procedure Center in [place], [place] [address] [place] [address] Madison Caicedo M.D. 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 - 01/18/2023 5:29 PM HOME VISITOR HOME BASE HEAD START Pre-Procedure Verification Pre-procedure verification conducted to verify [...] 25 mg/mL ??Route: intravitreal, Site: Right Eye ??[facility]: 90663-131-35 Balanced salt solution irrigation to injected eye [...] given if requested. Avastin RE Lot # [id number] Exp. 02/04/23 Rj Bowen M.D. [facility] PROCEDU RES documented in this encounter Visit Diagnoses Not on filedocumented in this encounter Care Teams [employer] Scout Relationship Specialty Start Date End Date Elsewhere, Pcp PCP - General Family Medicine 02/17/17 documented as of this encounter
--- OUTSIDE RECORDS SUMMARY | 2023-03-23 07:26 | XMS_ITS | Encounter Summary ---
Author Name Unknown Organization [facility] Address [address] [place] [address] Care Team Providers Care Training Developer Name Role Phone Elsewhere, Pcp Primary Care Provider Unavailabl e Encounter Details Date Type Department Care Team (Latest Contact Info) Description 02/09/2023 Orders Only Department of Ophthalmology in [place], [place] [address] [place] [address] Eliane Laura [address] [place] [address] Diabetes Mellitus Due To Underlying Condition With [...] (Latest Contact Info) Description 04/18/2023 1:10 PM WOOD PANEL INSPECTOR Ancillary Procedure Department of Ophthalmology in [place], [place] [address] [place] [address] 04/18/2023 1:30 PM WOOD PANEL INSPECTOR Appointment Outpatient Procedure Center in [place], [place] [address] [place] [phone] Madison Caicedo M.D. [address] [place] [phone] Discharge Disposition: Home or Self Care 05/23/2023 9:45 AM CDT Clinical Communication Virtual Review in [place], [place] 200 [place] [address] 05/26/2023 8:30 AM CDT Ancillary Procedure Department of Ophthalmology in [place], [place] [address] [place] [phone] Madison Caicedo M.D. [address] [place] [phone] 05/26/2023 9:00 AM CDT Ancillary Procedure Department of Ophthalmology in [place], [place] [address] [place] [phone] Madison Caicedo M.D. [address] [place] [phone] 05/26/2023 9:15 AM CDT Office Visit Department of Ophthalmology in [address] [address] Madison Caicedo M.D. [address] [place] [phone] 05/26/2023 1:20 PM CDT Appointment Outpatient Procedure Center in [place], [place] [address] [place] [phone] Madison Caicedo M.D. 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
--- OUTSIDE RECORDS SUMMARY | 2023-03-23 07:26 | XMS_ITS | Encounter Summary ---
Author Name Unknown Organization [facility] Address [address] [place] [address] Care Team Providers Care Biopharmaceutical Rep Name Role Phone Elsewhere, Pcp Primary Care Provider Unavailabl e Encounter Details Date Type Department Care Team (Latest Contact Info) Description 01/12/2023 Orders Only Department of Ophthalmology in [place], [place] [address] [place] [address] Eliane Laura [address] [place] [address] Diabetes Mellitus Due To Underlying Condition With [...] (Latest Contact Info) Description 04/18/2023 1:10 PM ENGINEERING DEPARTMENT CHAIR Ancillary Procedure Department of Ophthalmology in [place], [place] [address] [place] [address] 04/18/2023 1:30 PM ENGINEERING DEPARTMENT CHAIR Appointment Outpatient Procedure Center in [place], [place] [address] [place] [phone] Madison Caicedo M.D. [address] [place] [phone] Discharge Disposition: Home or Self Care 05/23/2023 9:45 AM CDT Clinical Communication Virtual Review in [place], [place] 200 [place] [address] 05/26/2023 8:30 AM CDT Ancillary Procedure Department of Ophthalmology in [place], [place] [address] [place] [phone] Madison Caicedo M.D. [address] [place] [phone] 05/26/2023 9:00 AM CDT Ancillary Procedure Department of Ophthalmology in [place], [place] [address] [place] [phone] Madison Caicedo M.D. [address] [place] [phone] 05/26/2023 9:15 AM CDT Office Visit Department of Ophthalmology in [address] [phone] Madison Caicedo M.D. [address] [place] [phone] 05/26/2023 1:20 PM CDT Appointment Outpatient Procedure Center in [place], [place] [address] [place] [phone] Madison Caicedo M.D. 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
--- OUTSIDE RECORDS SUMMARY | 2023-03-23 07:26 | XMS_ITS | Encounter Summary ---
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 [address] [place] [address] [facility] Referral ID Status Reason Start Date Expiration Date Visits Re quested Visits Authorized [id number] Closed 10/13/2022 10/13/2023 5 5 Encounter Details Date Type Department Care Team (Latest Contact Info) Description 01/18/2023 2:00 PM BIODIESEL PRODUCTION TECHNICIAN Ancillary Procedure Department of Ophthalmology in [place], [place] [address] [place] [phone] Madison Caicedo M.D. [address] [place] [address] Diabetes Mellitus Type 2 With [...] (Latest Contact Info) Description 04/18/2023 1:10 PM BIODIESEL PRODUCTION TECHNICIAN Ancillary Procedure Department of Ophthalmology in [address] [address] 04/18/2023 1:30 PM BIODIESEL PRODUCTION TECHNICIAN Appointment Outpatient Procedure Center in [address] [address] Madison Caicedo M.D. [address] [place] [phone] Discharge Disposition: Home or Self Care 05/23/2023 9:45 AM CDT Clinical Communication Virtual Review in [address] [address] 05/26/2023 8:30 AM CDT Ancillary Procedure Department of Ophthalmology in [address] [address] Madison Caicedo M.D. [address] [place] [phone] 05/26/2023 9:00 AM CDT Ancillary Procedure Department of Ophthalmology in [address] [address] Madison Caicedo M.D. [address] [place] [phone] 05/26/2023 9:15 AM CDT Office Visit Department of Ophthalmology in [address] [address] Madison Caicedo M.D. [address] [place] [phone] 05/26/2023 1:20 PM CDT Appointment Outpatient Procedure Center in [place], [place] [address] [place] [address] Madison Caicedo M.D. 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
--- OUTSIDE RECORDS SUMMARY | 2023-03-23 07:26 | XMS_ITS | Encounter Summary ---
Author Name Unknown Organization [facility] Address [address] [place] [address] Care Team Providers Care Health Physicist Name Role Phone Elsewhere, Pcp Primary Care Provider Unavailabl e Encounter Details Date Type Department Care Team (Latest Contact Info) Description 03/09/2023 Orders Only Department of Ophthalmology in [place], [place] [address] [place] [address] Eliane Laura [address] [place] [address] Diabetes Mellitus Due To Underlying Condition With [...] (Latest Contact Info) Description 04/18/2023 1:10 PM STATISTICAL FINANCIAL ANALYST Ancillary Procedure Department of Ophthalmology in [place], [place] [address] [place] [address] 04/18/2023 1:30 PM STATISTICAL FINANCIAL ANALYST Appointment Outpatient Procedure Center in [place], [place] [address] [place] [phone] Madison Caicedo M.D. [address] [place] [phone] Discharge Disposition: Home or Self Care 05/23/2023 9:45 AM CDT Clinical Communication Virtual Review in [place], [place] 200 [place] [address] 05/26/2023 8:30 AM CDT Ancillary Procedure Department of Ophthalmology in [place], [place] [address] [place] [phone] Madison Caicedo M.D. [address] [place] [phone] 05/26/2023 9:00 AM CDT Ancillary Procedure Department of Ophthalmology in [place], [place] [address] [place] [phone] Madison Caicedo M.D. [address] [place] [phone] 05/26/2023 9:15 AM CDT Office Visit Department of Ophthalmology in [address] [address] Madison Caicedo M.D. [address] [place] [phone] 05/26/2023 1:20 PM CDT Appointment Outpatient Procedure Center in [place], [place] [address] [place] [phone] Madison Caicedo M.D. 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
--- OUTSIDE RECORDS SUMMARY | 2023-03-23 07:26 | XMS_ITS | Encounter Summary ---
Author Name Unknown Organization [facility] Address [address] [place] [address] Care Team Providers Care Vice President Of Instruction Name Role Phone Elsewhere, Pcp Primary Care Provider Unavailabl e Encounter Details Date Type Department Care Team (Latest Contact Info) Description 12/15/2022 Orders Only Department of Ophthalmology in [place], [place] [address] [place] [address] Eliane Laura [address] [place] [address] Diabetes Mellitus Due To Underlying Condition With [...] (Latest Contact Info) Description 04/18/2023 1:10 PM CPS TEAM LEAD Ancillary Procedure Department of Ophthalmology in [place], [place] [address] [place] [address] 04/18/2023 1:30 PM CPS TEAM LEAD Appointment Outpatient Procedure Center in [place], [place] [address] [place] [phone] Madison Caicedo M.D. [address] [place] [phone] Discharge Disposition: Home or Self Care 05/23/2023 9:45 AM CDT Clinical Communication Virtual Review in [place], [place] 200 [place] [address] 05/26/2023 8:30 AM CDT Ancillary Procedure Department of Ophthalmology in [place], [place] [address] [place] [phone] Madison Caicedo M.D. [address] [place] [phone] 05/26/2023 9:00 AM CDT Ancillary Procedure Department of Ophthalmology in [place], [place] [address] [place] [phone] Madison Caicedo M.D. [address] [place] [phone] 05/26/2023 9:15 AM CDT Office Visit Department of Ophthalmology in [address] [phone] Madison Caicedo M.D. [address] [place] [phone] 05/26/2023 1:20 PM CDT Appointment Outpatient Procedure Center in [place], [place] [address] [place] [phone] Madison Caicedo M.D. 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
--- OUTSIDE RECORDS SUMMARY | 2023-03-23 07:26 | XMS_ITS | Encounter Summary ---
Author Name Unknown Organization [facility] Address [address] [place] [address] Care Team Providers Care Pegger Name Role Phone Elsewhere, Pcp Primary Care Provider Unavailabl e Encounter Details Date Type Department Care Team (Latest Contact Info) Description 12/21/2022 2:50 PM CDT - 12/21/2022 11:59 PM CDT Hospital Encounter Outpatient Procedure Center in [place], [place] [address] [place] [address] Filemon Mendez M.D. [address] [place] [address] Discharge Disposition: Home or Self Care Social [...] (Latest Contact Info) Description 04/18/2023 1:10 PM SERVICENOW ADMINISTRATOR Ancillary Procedure Department of Ophthalmology in [address] [address] 04/18/2023 1:30 PM SERVICENOW ADMINISTRATOR Appointment Outpatient Procedure Center in [address] [address] Madison Caicedo M.D. [address] [place] [phone] Discharge Disposition: Home or Self Care 05/23/2023 9:45 AM CDT Clinical Communication Virtual Review in [place], [place] 200 [place] [address] 05/26/2023 8:30 AM CDT Ancillary Procedure Department of Ophthalmology in [address] [address] Madison Caicedo M.D. [address] [place] [phone] 05/26/2023 9:00 AM CDT Ancillary Procedure Department of Ophthalmology in [address] [address] Madison Caicedo M.D. [address] [place] [phone] 05/26/2023 9:15 AM CDT Office Visit Department of Ophthalmology in [place], [place] [address] [place] [address] Madison Caicedo M.D. [address] [place] [address] 05/26/2023 1:20 PM CDT Appointment Outpatient Procedure Center in [place], [place] [address] [place] [address] Madison Caicedo M.D. [address] [place] [address] documented as of this encounter Procedures Procedure [...] 25 mg/mL ??Route: intravitreal, Site: Right Eye ??[facility]: 69075-730-48 Balanced salt solution irrigation to injected eye [...] given if requested. Avastin RE Lot # [id number] Exp. 01/13/23 Filemon Mendez M.D. [facility] PROCED URES documented in this encounter Visit Diagnoses Not on filedocumented in this encounter Care Teams Pegger Relationship Specialty Start Date End Date Elsewhere, Pcp PCP - General Family Medicine 02/17/17 documented as of this encounter
--- OUTSIDE RECORDS SUMMARY | 2023-03-23 07:26 | XMS_ITS | Encounter Summary ---
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 [address] [place] [address] [facility] Referral ID Status Reason Start Date Expiration Date V isits Requested Visits Authorized [id number] Authorized 10/13/2022 10/13/2023 6 6 Encounter Details Date Type Department Care Team (Latest Contact Info) Description 02/15/2023 1:42 PM ASSISTANT BRAND MANAGER - 02/15/2023 2:28 PM ASSISTANT BRAND MANAGER Hospital Encounter Outpatient Procedure Center in [place], [place] [address] [place] [address] Madison Caicedo M.D. [address] [place] [phone] Diabetes Mellitus Type 2 With Moderate Nonproliferative [...] (Latest Contact Info) Description 04/18/2023 1:10 PM ASSISTANT BRAND MANAGER Ancillary Procedure Department of Ophthalmology in [place], [place] [address] [place] [phone] 04/18/2023 1:30 PM ASSISTANT BRAND MANAGER Appointment Outpatient Procedure Center in [place], [place] [address] [place] [phone] Madison Caicedo M.D. [address] [place] [phone] Discharge Disposition: Home or Self Care 05/23/2023 9:45 AM CDT Clinical Communication Virtual Review in [place], [place] 200 [place] [address] 05/26/2023 8:30 AM CDT Ancillary Procedure Department of Ophthalmology in [address] [address] Madison Caicedo M.D. [address] [place] [phone] 05/26/2023 9:00 AM CDT Ancillary Procedure Department of Ophthalmology in [place], [place] [address] [place] [phone] Madison Caicedo M.D. [address] [place] [phone] 05/26/2023 9:15 AM CDT Office Visit Department of Ophthalmology in [address] [address] Madison Caicedo M.D. [address] [place] [phone] 05/26/2023 1:20 PM CDT Appointment Outpatient Procedure Center in [address] [address] Madison Caicedo M.D. 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 - 02/15/2023 3:11 PM ASSISTANT BRAND MANAGER Pre-Procedure Verification Pre-procedure verification conducted to verify [...] Site: Right Eye ??[facility]: 49762-738-61 Balanced salt solution irrigation to injected eye [...] given if requested. Avastin RE Lot # [id number] Exp. 03/23/23 Bebe Streeter M.D. [facility] PRO CEDURES documented in this encounter Visit Diagnoses Diagnosis [...] For 365 days Given 03/15/2023 1:47 PM ASSISTANT BRAND MANAGER 30 mL Given 02/15/2023 2:30 PM ASSISTANT BRAND MANAGER 30 mL Given 01/18/2023 2:55 PM ASSISTANT BRAND MANAGER 30 mL carboxymethylcellulose 1 % ophthalmic solution 1 drop (THERATEARS) 1 drop, right eye, As needed, dry eyes, DIRECTED OPHTHALMIC IN OR, Starting on Itzel 06/10/22 at 0918, For 365 days Given 03/15/2023 1:48 PM ASSISTANT BRAND MANAGER 1 drop Given 02/15/2023 2:30 PM ASSISTANT BRAND MANAGER 1 drop Given 01/18/2023 2:55 PM ASSISTANT BRAND MANAGER 1 drop povidone-iodine 5 % ophthalmic solution 1 drop (BETADINE) 1 drop, right eye, As needed, irrigation, DIRECTED OPHTHALMIC IN OR, Starting on Itzel 06/10/22 at 0918, For 365 days, Irrigate ocular and periocular region and leave for 2 mins; then flush with sterile saline solution. Given 03/15/2023 1:48 PM ASSISTANT BRAND MANAGER 1 drop Given 02/15/2023 2:30 PM ASSISTANT BRAND MANAGER 1 drop Given 01/18/2023 2:55 PM ASSISTANT BRAND MANAGER 1 drop proparacaine 0.5 % ophthalmic solution 1 drop (ALCAINE) 1 drop, right eye, As needed, DIRECTED OPHTHALMIC IN OR, Starting on Itzel 06/10/22 at 0918, For 365 days Given 03/15/2023 1:48 PM ASSISTANT BRAND MANAGER 1 drop Given 02/15/2023 2:30 PM ASSISTANT BRAND MANAGER 1 drop Given 01/18/2023 2:55 PM ASSISTANT BRAND MANAGER 1 drop tetracaine (PF) 0.5 % ophthalmic solution 1 drop (ALTACAINE) 1 drop, right eye, As needed, DIRECTED OPHTHALMIC IN OR, Starting on [facility] 06/10/22 at 0918, For 365 days Given 03/15/2023 1:47 PM ASSISTANT BRAND MANAGER 1 drop Given 02/15/2023 2:30 PM ASSISTANT BRAND MANAGER 1 drop Given 01/18/2023 2:55 PM ASSISTANT BRAND MANAGER 1 drop Inactive Administered Medications - up to 3 most recent administrations Medication Order MAR Action Action Date Dose Rate Site bevacizumab intraocular injection 1.25 mg (AVASTIN) 1.25 mg, intravitreal, As needed, DIRECTED OPHTHALMIC IN OR, Starting on Tue02/15/23 at 1511, Inject into right eye. Given 02/15/2023 3:11 PM ASSISTANT BRAND MANAGER 1.25 mg Right Eye documented in this encounter Care Teams Storage Receipt Poster Relationship Specialty Start Date End Date Elsewhere, Pcp PCP - General Family Medicine 02/17/17 documented as of this encounter
--- OUTSIDE RECORDS SUMMARY | 2023-03-23 07:26 | XMS_ITS | Encounter Summary ---
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 [address] [place] [address] [facility] Referral ID Status Reason Start Date Expiration Date Visits Re quested Visits Authorized [id number] Closed 10/13/2022 10/13/2023 5 5 Encounter Details Date Type Department Care Team (Latest Contact Info) Description 02/15/2023 2:00 PM [place] Ancillary Procedure Department of Ophthalmology in [place], [place] [address] [place] [phone] Madison Caicedo M.D. [address] [place] [address] Diabetes Mellitus Type 2 With [...] (Latest Contact Info) Description 04/18/2023 1:10 PM [place] Ancillary Procedure Department of Ophthalmology in [address] [address] 04/18/2023 1:30 PM [place] Appointment Outpatient Procedure Center in [address] [address] Madison Caicedo M.D. [address] [place] [phone] Discharge Disposition: Home or Self Care 05/23/2023 9:45 AM CDT Clinical Communication Virtual Review in [address] [address] 05/26/2023 8:30 AM CDT Ancillary Procedure Department of Ophthalmology in [address] [address] Madison Caicedo M.D. [address] [place] [phone] 05/26/2023 9:00 AM CDT Ancillary Procedure Department of Ophthalmology in [address] [address] Madison Caicedo M.D. [address] [place] [phone] 05/26/2023 9:15 AM CDT Office Visit Department of Ophthalmology in [address] [address] Madison Caicedo M.D. [address] [place] [phone] 05/26/2023 1:20 PM CDT Appointment Outpatient Procedure Center in [place], [place] [address] [place] [address] Madison Caicedo M.D. 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
--- OUTSIDE RECORDS SUMMARY | 2023-03-23 07:27 | XMS_ITS | Encounter Summary ---
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 [address] [place] [address] [facility] Referral ID Status Reason Start Date Expiration Date Visits Re quested Visits Authorized [id number] Closed 06/10/2022 06/10/2023 3 3 Encounter Details Date Type Department Care Team (Latest Contact Info) Description 09/07/2022 2:20 PM CDT Ancillary Procedure Department of Ophthalmology in [place], [place] [address] [place] [phone] Madison Caicedo M.D. 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 [address] [place] [phone] Discharge Disposition: Home or Self Care 05/23/2023 9:45 AM CDT Clinical Communication Virtual Review in [address] [address] 05/26/2023 8:30 AM CDT Ancillary Procedure Department of Ophthalmology in [address] [address] Madison Caicedo M.D. [address] [place] [phone] 05/26/2023 9:00 AM CDT Ancillary Procedure Department of Ophthalmology in [address] [address] Madison Caicedo M.D. [address] [place] [phone] 05/26/2023 9:15 AM CDT Office Visit Department of Ophthalmology in [address] [address] Madison Caicedo M.D. [address] [place] [phone] 05/26/2023 1:20 PM CDT Appointment Outpatient Procedure Center in [place], [place] [address] [place] [address] Madison Caicedo M.D. 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
--- OUTSIDE RECORDS SUMMARY | 2023-03-23 07:27 | XMS_ITS | Encounter Summary ---
Author Name Unknown Organization [facility] Address [address] [place] [address] Care Team Providers Care Tile Classifier Name Role Phone Elsewhere, Pcp Primary Care Provider Unavailabl e Reason for Referral * Outpatient (Routine) - Authorized Specialty Diagnoses / Procedures Referred By Araceli garza Referred To Contact Ophthalmology Madison Caicedo M.D. [address] [place] [address] [facility] Referral ID Status Reason Start Date Expiration Date V isits Requested Visits Authorized [id number] Authorized 10/13/2022 10/12/2025 1 1 Scheduling Instructions Plan: 10/13/2022 RIGHT EYE: Avastin right eye for Diabetic Macular Edema Follow up for 5 more Avastin in the right eye every 4-5 weeks. 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) (Primary Dx) Social History Tobacco Use Types Packs/Day Years Used Date Smoking Tobacco: Never Smokeless Tobacco: Never Nutrition Answer Date Recorded Nutrition: EVOO Fat Source Unknown 05/01 Nutrition: Servings of Fruits/Vegetables per Day Not on file 05/01/2020 Dental Answer Date Recorded Dental: Regular Dentist Unknown 05/02/19 21 Sex and Gender Information Value Date Recorded Sex Assigned at Male 12/14/2022 12:21 PM CDT Gender Identity Male 12/14/2022 12:21 PM CDT Sexual Orientation Straight 12/14/2022 12 :21 PM CDT documented as of this encounter Plan of Treatment Upcoming Encounters Date Type Department Care Team (Latest Contact Info) Description 04/18/2023 1:10 PM INCOME TAX PREPARER Ancillary Procedure Department of Ophthalmology in [place], [place] [address] [place] [address] 04/18/2023 1:30 PM INCOME TAX PREPARER Appointment Outpatient Procedure Center in [place], [place] [address] [place] [phone] Madison Caicedo M.D. [address] [place] [phone] Discharge Disposition: Home or Self Care 05/23/2023 9:45 AM CDT Clinical Communication Virtual Review in [place], [place] 200 [place] [address] 05/26/2023 8:30 AM CDT Ancillary Procedure Department of Ophthalmology in [place], [place] [address] [place] [phone] Madison Caicedo M.D. [address] [place] [phone] 05/26/2023 9:00 AM CDT Ancillary Procedure Department of Ophthalmology in [place], [place] [address] [place] [phone] Madison Caicedo M.D. [address] [place] [phone] 05/26/2023 9:15 AM CDT Office Visit Department of Ophthalmology in [place], [place] [address] [place] [phone] Madison Caicedo M.D. [address] [place] [phone] 05/26/2023 1:20 PM CDT Appointment Outpatient Procedure Center in [place], [place] [address] [place] [phone] Madison Caicedo M.D. 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) q4-5wks for 6 Occurrences starting 10/13/2022 until 01/14/2024, 5 completed Optical Coherence Tomography (OCT) - Macula/Retina - OU - Both Eyes Ophthalmology Routine 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) 1 Occurrences starting 10/13/2022 until 01/14/2024 Scheduled Referrals Name Type Priority Associated Diagnoses Order Schedule Ophthalmology office visit (clinic) Outpatient Referral Routine 1 Occurrences starting 10/13/2022 until 01/14/2024 documented as of this encounter Visit Diagnoses Diagnosis 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
--- OUTSIDE RECORDS SUMMARY | 2023-03-23 07:27 | XMS_ITS | Encounter Summary ---
Author Name Unknown Organization [facility] Address [address] [place] [address] Care Team Providers Care Certified Home Health Aide Name Role Phone Elsewhere, Pcp Primary Care [...] INJECTION INTRAVITREAL Madison Caicedo M.D. 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 [address] [place] [address] [facility] Referral ID Status Reason Start Date Expiration Date V isits Requested Visits Authorized [id number] Authorized 10/13/2022 10/13/2023 6 6 Encounter Details Date Type Department Care Team (Latest Contact Info) Description 11/17/2022 2:26 PM CDT - 11/17/2022 3:02 PM CDT Hospital Encounter Outpatient Procedure Center in [place], [place] [address] [place] [address] Madison Caicedo M.D. [address] [place] [address] Diabetes Mellitus Type 2 With Moderate Nonproliferative [...] (Latest Contact Info) Description 04/18/2023 1:10 PM SHOELACE TIPPING MACHINE OPERATOR Ancillary Procedure Department of Ophthalmology in [place], [place] [address] [place] [phone] 04/18/2023 1:30 PM SHOELACE TIPPING MACHINE OPERATOR Appointment Outpatient Procedure Center in [address] [phone] Madison Caicedo M.D. [address] [place] [phone] Discharge Disposition: Home or Self Care 05/23/2023 9:45 AM CDT Clinical Communication Virtual Review in [place], [place] 200 [place] [address] 05/26/2023 8:30 AM CDT Ancillary Procedure Department of Ophthalmology in [address] [phone] Madison Caicedo M.D. [address] [place] [phone] 05/26/2023 9:00 AM CDT Ancillary Procedure Department of Ophthalmology in [address] [phone] Madison Caicedo M.D. [address] [place] [phone] 05/26/2023 9:15 AM CDT Office Visit Department of Ophthalmology in [address] [phone] Madison Caicedo M.D. [address] [place] [phone] 05/26/2023 1:20 PM CDT Appointment Outpatient Procedure Center in [address] [phone] Madison Caicedo M.D. 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 Lot [id number] exp 12/28/2022 Benitez Yuan M.D. OPHTH CLINIC PRO CEDURES documented in [...] For 365 days Given 03/15/2023 1:47 PM SHOELACE TIPPING MACHINE OPERATOR 30 mL Given 02/15/2023 2:30 PM SHOELACE TIPPING MACHINE OPERATOR 30 mL Given 01/18/2023 2:55 PM SHOELACE TIPPING MACHINE OPERATOR 30 mL carboxymethylcellulose 1 % ophthalmic solution 1 drop (THERATEARS) 1 drop, right eye, As needed, dry eyes, DIRECTED OPHTHALMIC IN OR, Starting on Itzel 06/10/22 at 0918, For 365 days Given 03/15/2023 1:48 PM SHOELACE TIPPING MACHINE OPERATOR 1 drop Given 02/15/2023 2:30 PM SHOELACE TIPPING MACHINE OPERATOR 1 drop Given 01/18/2023 2:55 PM SHOELACE TIPPING MACHINE OPERATOR 1 drop povidone-iodine 5 % ophthalmic solution 1 drop (BETADINE) 1 drop, right eye, As needed, irrigation, DIRECTED OPHTHALMIC IN OR, Starting on Itzel 06/10/22 at 0918, For 365 days, Irrigate ocular and periocular region and leave for 2 mins; then flush with sterile saline solution. Given 03/15/2023 1:48 PM SHOELACE TIPPING MACHINE OPERATOR 1 drop Given 02/15/2023 2:30 PM SHOELACE TIPPING MACHINE OPERATOR 1 drop Given 01/18/2023 2:55 PM SHOELACE TIPPING MACHINE OPERATOR 1 drop proparacaine 0.5 % ophthalmic solution 1 drop (ALCAINE) 1 drop, right eye, As needed, DIRECTED OPHTHALMIC IN OR, Starting on Itzel 06/10/22 at 0918, For 365 days Given 03/15/2023 1:48 PM SHOELACE TIPPING MACHINE OPERATOR 1 drop Given 02/15/2023 2:30 PM SHOELACE TIPPING MACHINE OPERATOR 1 drop Given 01/18/2023 2:55 PM SHOELACE TIPPING MACHINE OPERATOR 1 drop tetracaine (PF) 0.5 % ophthalmic solution 1 drop (ALTACAINE) 1 drop, right eye, As needed, DIRECTED OPHTHALMIC IN OR, Starting on [facility] 06/10/22 at 0918, For 365 days Given 03/15/2023 1:47 PM SHOELACE TIPPING MACHINE OPERATOR 1 drop Given 02/15/2023 2:30 PM SHOELACE TIPPING MACHINE OPERATOR 1 drop Given 01/18/2023 2:55 PM SHOELACE TIPPING MACHINE OPERATOR 1 drop Inactive Administered Medications - up to 3 most recent administrations Medication Order MAR Action Action Date Dose Rate Site bevacizumab intraocular injection 1.25 mg (AVASTIN) 1.25 mg, intravitreal, As needed, DIRECTED OPHTHALMIC IN OR, Starting on Tue11/17/22 at 1640, Inject into right eye. Given 11/17/2022 4:40 PM CDT 1.25 mg Right Eye documented in this encounter Care Teams Certified Home Health Aide Relationship Specialty Start Date End Date Elsewhere, Pcp PCP - General Family Medicine 02/17/17 documented as of this encounter
--- OUTSIDE RECORDS SUMMARY | 2023-03-23 07:27 | XMS_ITS | Encounter Summary ---
Author Name Unknown Organization 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 [address] [place] [address] [facility] Referral ID Status Reason Start Date Expiration Date Visits Re quested Visits Authorized [id number] Closed 06/10/2022 06/10/2023 4 4 Encounter Details Date Type Department Care Team (Latest Contact Info) Description 09/07/2022 2:06 PM CDT - 09/07/2022 2:40 PM CDT Hospital Encounter Outpatient Procedure Center in [place], [place] [address] [place] [address] Madison Caicedo M.D. 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 [address] [place] [phone] Discharge Disposition: Home or Self Care 05/23/2023 9:45 AM CDT Clinical Communication Virtual Review in [place], [place] 200 [place] [address] 05/26/2023 8:30 AM CDT Ancillary Procedure Department of Ophthalmology in [address] [phone] Madison Caicedo M.D. [address] [place] [phone] 05/26/2023 9:00 AM CDT Ancillary Procedure Department of Ophthalmology in [address] [phone] Madison Caicedo M.D. [address] [place] [phone] 05/26/2023 9:15 AM CDT Office Visit Department of Ophthalmology in [address] [address] Madison Caicedo M.D. [address] [place] [phone] 05/26/2023 1:20 PM CDT Appointment Outpatient Procedure Center in [address] [address] Madison Caicedo M.D. 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 - 09/07/2022 3:02 PM CDT Pre-Procedure Verification Pre-procedure verification conducted [...] 25 mg/mL ??Route: intravitreal, Site: Right Eye ??[facility]: 89860-634-22 Balanced salt solution irrigation to injected eye [...] discussed and return schedule given if requested. Right eye LOT: [id number] EXP: 09/29/22 Filemon Mendez M.D. 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 Hypoglycemic Bilateral (HCC) documented in this encounter Administered Medications Active Administered Medications - up to 3 most recent administrations Medication Order MAR Action Action Date Dose Rate Site balanced salt solution ophthalmic irrigation 30 mL (BSS) 30 mL, right eye, As needed, DIRECTED OPHTHALMIC IN OR, Starting on Itzel 06/10/22 at 0918, For 365 days Given 03/15/2023 1:47 PM PAINTER SET 30 mL Given 02/15/2023 2:30 PM PAINTER SET 30 mL Given 01/18/2023 2:55 PM PAINTER SET 30 mL carboxymethylcellulose 1 % ophthalmic solution 1 drop (THERATEARS) 1 drop, right eye, As needed, dry eyes, DIRECTED OPHTHALMIC IN OR, Starting on Itzel 06/10/22 at 0918, For 365 days Given 03/15/2023 1:48 PM PAINTER SET 1 drop Given 02/15/2023 2:30 PM PAINTER SET 1 drop Given 01/18/2023 2:55 PM PAINTER SET 1 drop povidone-iodine 5 % ophthalmic solution 1 drop (BETADINE) 1 drop, right eye, As needed, irrigation, DIRECTED OPHTHALMIC IN OR, Starting on Itzel 06/10/22 at 0918, For 365 days, Irrigate ocular and periocular region and leave for 2 mins; then flush with sterile saline solution. Given 03/15/2023 1:48 PM PAINTER SET 1 drop Given 02/15/2023 2:30 PM PAINTER SET 1 drop Given 01/18/2023 2:55 PM PAINTER SET 1 drop proparacaine 0.5 % ophthalmic solution 1 drop (ALCAINE) 1 drop, right eye, As needed, DIRECTED OPHTHALMIC IN OR, Starting on Itzel 06/10/22 at 0918, For 365 days Given 03/15/2023 1:48 PM PAINTER SET 1 drop Given 02/15/2023 2:30 PM PAINTER SET 1 drop Given 01/18/2023 2:55 PM PAINTER SET 1 drop tetracaine (PF) 0.5 % ophthalmic solution 1 drop (ALTACAINE) 1 drop, right eye, As needed, DIRECTED OPHTHALMIC IN OR, Starting on Itzel 06/10/22 at 0918, For 365 days Given 03/15/2023 1:47 PM PAINTER SET 1 drop Given 02/15/2023 2:30 PM PAINTER SET 1 drop Given 01/18/2023 2:55 PM PAINTER SET 1 drop Inactive Administered Medications - up to 3 most recent administrations Medication Order MAR Action Action Date Dose Rate Site bevacizumab intraocular injection 1.25 mg (AVASTIN) 1.25 mg, intravitreal, As needed, DIRECTED OPHTHALMIC IN OR, Starting on Tue09/07/22 at 1502, Inject into right eye. Given 09/07/2022 3:02 PM CDT 1.25 mg Right Eye documented in this encounter Care Teams Sea Air Land Officer Relationship Specialty Start Date End Date Elsewhere, Pcp PCP - General Family Medicine 02/17/17 documented as of this encounter
--- OUTSIDE RECORDS SUMMARY | 2023-03-23 07:27 | XMS_ITS | Encounter Summary ---
Author Name Unknown Organization [facility] Address [address] [place] [address] Care Team Providers Care Lining Feller Blindstitch Name Role Phone Elsewhere, Pcp Primary Care Provider Unavailabl e Encounter Details Date Type Department Care Team (Latest Contact Info) Description 11/11/2022 Orders Only Department of Ophthalmology in [place], [place] [address] [place] [address] Eliane Laura [address] [place] [address] Diabetes Mellitus Due To Underlying Condition With [...] (Latest Contact Info) Description 04/18/2023 1:10 PM SUPERVISOR HOME RESTORATION SERVICE Ancillary Procedure Department of Ophthalmology in [place], [place] [address] [place] [address] 04/18/2023 1:30 PM SUPERVISOR HOME RESTORATION SERVICE Appointment Outpatient Procedure Center in [place], [place] [address] [place] [phone] Madison Caicedo M.D. [address] [place] [phone] Discharge Disposition: Home or Self Care 05/23/2023 9:45 AM CDT Clinical Communication Virtual Review in [place], [place] 200 [place] [address] 05/26/2023 8:30 AM CDT Ancillary Procedure Department of Ophthalmology in [place], [place] [address] [place] [phone] Madison Caicedo M.D. [address] [place] [phone] 05/26/2023 9:00 AM CDT Ancillary Procedure Department of Ophthalmology in [place], [place] [address] [place] [phone] Madison Caicedo M.D. [address] [place] [phone] 05/26/2023 9:15 AM CDT Office Visit Department of Ophthalmology in [address] [phone] Madison Caicedo M.D. [address] [place] [phone] 05/26/2023 1:20 PM CDT Appointment Outpatient Procedure Center in [place], [place] [address] [place] [phone] Madison Caicedo M.D. 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
--- OUTSIDE RECORDS SUMMARY | 2023-03-23 07:27 | XMS_ITS | Encounter Summary ---
Author Name Unknown Organization [facility] Address [address] [place] [address] Care Team Providers Care News Specialist Name Role Phone Elsewhere, Pcp Primary Care Provider Unavailabl e Encounter Details Date Type Department Care Team (Latest Contact Info) Description 10/13/2022 9:30 AM CDT Ancillary Procedure Department of Ophthalmology in [place], [place] [address] [place] [address] Madison Caicedo M.D. [address] [place] [phone] Diabetes Mellitus Type 2 With Mild Nonproliferative [...] (Latest Contact Info) Description 04/18/2023 1:10 PM EXPORT AGENT Ancillary Procedure Department of Ophthalmology in [place], [place] [address] [place] [address] 04/18/2023 1:30 PM EXPORT AGENT Appointment Outpatient Procedure Center in [place], [place] [address] [place] [phone] Madison Caicedo M.D. [address] [place] [phone] Discharge Disposition: Home or Self Care 05/23/2023 9:45 AM CDT Clinical Communication Virtual Review in [place], [place] 200 [place] [address] 05/26/2023 8:30 AM CDT Ancillary Procedure Department of Ophthalmology in [place], [place] [address] [place] [phone] Madison Caicedo M.D. [address] [place] [phone] 05/26/2023 9:00 AM CDT Ancillary Procedure Department of Ophthalmology in [place], [place] [address] [place] [phone] Madison Caicedo M.D. [address] [place] [phone] 05/26/2023 9:15 AM CDT Office Visit Department of Ophthalmology in [address] [phone] Madison Caicedo M.D. [address] [place] [phone] 05/26/2023 1:20 PM CDT Appointment Outpatient Procedure Center in [address] [phone] Madison Caicedo M.D. 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 Left Eye OCT device used was Spectralis . Notes See clinical note for interpretation. Madison Caicedo MD Madison Caicedo M.D. 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
--- OUTSIDE RECORDS SUMMARY | 2023-03-23 07:27 | XMS_ITS | Encounter Summary ---
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 [address] [place] [address] [facility] Referral ID Status Reason Start Date Expiration Date Visits Re quested Visits Authorized [id number] Closed 06/10/2022 06/10/2023 4 4 Encounter Details Date Type Department Care Team (Latest Contact Info) Description 08/10/2022 1:55 PM CDT - 08/10/2022 2:12 PM CDT Hospital Encounter Outpatient Procedure Center in [place], [place] [address] [place] [address] Madison Caicedo M.D. [address] [place] [address] Diabetes Mellitus Type 2 With Mild Nonproliferative [...] (Latest Contact Info) Description 04/18/2023 1:10 PM COMMITTEE MEMBER Ancillary Procedure Department of Ophthalmology in [place], [place] [address] [place] [phone] 04/18/2023 1:30 PM COMMITTEE MEMBER Appointment Outpatient Procedure Center in [address] [address] Madison Caicedo M.D. [address] [place] [phone] Discharge Disposition: Home or Self Care 05/23/2023 9:45 AM CDT Clinical Communication Virtual Review in [place], [place] 200 [place] [address] 05/26/2023 8:30 AM CDT Ancillary Procedure Department of Ophthalmology in [address] [address] Madison Caicedo M.D. [address] [place] [phone] 05/26/2023 9:00 AM CDT Ancillary Procedure Department of Ophthalmology in [address] [address] Madison Caicedo M.D. [address] [place] [phone] 05/26/2023 9:15 AM CDT Office Visit Department of Ophthalmology in [address] [address] Madison Caicedo M.D. [address] [place] [phone] 05/26/2023 1:20 PM CDT Appointment Outpatient Procedure Center in [address] [address] Madison Caicedo M.D. 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 - 08/10/2022 3:14 PM CDT Pre-Procedure Verification Pre-procedure verification conducted [...] 25 mg/mL ??Route: intravitreal, Site: Right Eye ??[facility]: 14599-081-61 Balanced salt solution irrigation to injected eye [...] and return schedule given if requested. Lot [id number] exp 09/21/2022 Filemon Mendez M.D. OPHTH CLINIC PROCED URES [...] needed, DIRECTED OPHTHALMIC IN OR, Starting on [facility] 06/10/22 at 0918, For 365 days Given 03/15/2023 1:47 PM COMMITTEE MEMBER 30 mL Given 02/15/2023 2:30 PM COMMITTEE MEMBER 30 mL Given 01/18/2023 2:55 PM COMMITTEE MEMBER 30 mL carboxymethylcellulose 1 % ophthalmic solution 1 drop (THERATEARS) 1 drop, right eye, As needed, dry eyes, DIRECTED OPHTHALMIC IN OR, Starting on [facility] 06/10/22 at 0918, For 365 days Given 03/15/2023 1:48 PM COMMITTEE MEMBER 1 drop Given 02/15/2023 2:30 PM COMMITTEE MEMBER 1 drop Given 01/18/2023 2:55 PM COMMITTEE MEMBER 1 drop povidone-iodine 5 % ophthalmic solution 1 drop (BETADINE) 1 drop, right eye, As needed, irrigation, DIRECTED OPHTHALMIC IN OR, Starting on [facility] 06/10/22 at 0918, For 365 days, Irrigate ocular and periocular region and leave for 2 mins; then flush with sterile saline solution. Given 03/15/2023 1:48 PM COMMITTEE MEMBER 1 drop Given 02/15/2023 2:30 PM COMMITTEE MEMBER 1 drop Given 01/18/2023 2:55 PM COMMITTEE MEMBER 1 drop proparacaine 0.5 % ophthalmic solution 1 drop (ALCAINE) 1 drop, right eye, As needed, DIRECTED OPHTHALMIC IN OR, Starting on [facility] 06/10/22 at 0918, For 365 days Given 03/15/2023 1:48 PM COMMITTEE MEMBER 1 drop Given 02/15/2023 2:30 PM COMMITTEE MEMBER 1 drop Given 01/18/2023 2:55 PM COMMITTEE MEMBER 1 drop tetracaine (PF) 0.5 % ophthalmic solution 1 drop (ALTACAINE) 1 drop, right eye, As needed, DIRECTED OPHTHALMIC IN OR, Starting on [facility] 06/10/22 at 0918, For 365 days Given 03/15/2023 1:47 PM COMMITTEE MEMBER 1 drop Given 02/15/2023 2:30 PM COMMITTEE MEMBER 1 drop Given 01/18/2023 2:55 PM COMMITTEE MEMBER 1 drop Inactive Administered Medications - up to 3 most recent administrations Medication Order MAR Action Action Date Dose Rate Site bevacizumab intraocular injection 1.25 mg (AVASTIN) 1.25 mg, intravitreal, As needed, DIRECTED OPHTHALMIC IN OR, Starting on Tue08/10/22 at 1514, Inject into right eye. Given 08/10/2022 3:14 PM CDT 1.25 mg Right Eye documented in this encounter Care Teams Cotton Roll Packer Relationship Specialty Start Date End Date Elsewhere, Pcp PCP - General Family Medicine 02/17/17 documented as of this encounter
--- OUTSIDE RECORDS SUMMARY | 2023-03-23 07:27 | XMS_ITS | Encounter Summary ---
Author Name Unknown Organization [facility] Address [address] [place] [address] Care Team Providers Care 2Nd Grade Teacher Name Role Phone Elsewhere, Pcp Primary Care Provider Unavailabl e Encounter Details Date Type Department Care Team (Latest Contact Info) Description 09/01/2022 Orders Only Department of Ophthalmology in [place], [place] [address] [place] [address] Carolyn Farah, C.O.A. Diabetes Mellitus Due To Underlying Condition With [...] (Latest Contact Info) Description 04/18/2023 1:10 PM BUSINESS CONTINUITY MANAGEMENT DIRECTOR Ancillary Procedure Department of Ophthalmology in [place], [place] [address] [place] [address] 04/18/2023 1:30 PM BUSINESS CONTINUITY MANAGEMENT DIRECTOR Appointment Outpatient Procedure Center in [place], [place] [address] [place] [phone] Madison Caicedo M.D. [address] [place] [phone] Discharge Disposition: Home or Self Care 05/23/2023 9:45 AM CDT Clinical Communication Virtual Review in [place], [place] 200 [place] [address] 05/26/2023 8:30 AM CDT Ancillary Procedure Department of Ophthalmology in [place], [place] [address] [place] [phone] Madison Caicedo M.D. [address] [place] [phone] 05/26/2023 9:00 AM CDT Ancillary Procedure Department of Ophthalmology in [place], [place] [address] [place] [phone] Madison Caicedo M.D. [address] [place] [phone] 05/26/2023 9:15 AM CDT Office Visit Department of Ophthalmology in [address] [address] Madison Caicedo M.D. [address] [place] [phone] 05/26/2023 1:20 PM CDT Appointment Outpatient Procedure Center in [place], [place] [address] [place] [phone] Madison Caicedo M.D. 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
--- OUTSIDE RECORDS SUMMARY | 2023-03-23 07:27 | XMS_ITS | Encounter Summary ---
Author Name Unknown Organization [facility] Address [address] [place] [address] Care Team Providers Care Manager Green Name Role Phone Elsewhere, Pcp Primary Care Provider Unavailabl e Reason for Visit * Reason Comments Injection Visit * Outpatient (Routine) - Closed Specialty Diagnoses / Procedures Referred By Araceli garza Referred To Contact Ophthalmology Madison Caicedo M.D. [address] [place] [address] [facility] Referral ID Status Reason Start Date Expiration Date Visits Re quested Visits Authorized [id number] Closed 06/10/2022 06/09/2025 1 1 Encounter Details Date Type Department Care Team (Latest Contact Info) Description 10/13/2022 9:45 AM CDT Office Visit Department of Ophthalmology in [place], [place] [address] [place] [phone] Madison Caicedo M.D. 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 - 10/13/2022 9:45 AM CDT Here for follow up of diabetic retinopathy with macular edema, feels subjectively better FA results: 06/10/2022 right eye: no neovascularization; mild macular edema, central floater; MAs left eye: no neovascularization, macular hyperfluorescence temporal; [facility] OCT macula: 10/13/2022 right eye: macular edema, minimal improvement left eye: no fluid; temporal area of photoreceptor loss. #1 Severe Non-proliferative diabetic retinopathy BOTH eyes with macular edema right eye - Current A1c 8.2 (03/02/22) History: -focal laser LE 2005 -Avastin injections 3, beginning 02/2016 LE only -Patient had left Ozurdex placed with no benefit -diabetes mellitus type 2 , dx 2005 -med changed to Jardiance and A1c has dropped to 9.0 #2 diabetic macular edema right eye #3 Cataracts BOTH eyes -non visually-significant; will reassess when edema resolved Right Eye Recent Injections Most recent: 5 weeks, 1 day ago Date Medication Dose Route Site [facility] IOP CMT R Microns Blood R Fluid R Interval 09/07/2022 bevacizumab (AVASTIN) intraocular injection syringe 1.25 mg intravitreal Right Eye 20/20+2 (cc) 17 Left Eye Recent Injections No administrations to display Assessment 10/13/2022 DME right eye on avastin monthly with very minimal improvement on OCT, visual acuity 20/30 Continue avastin for next 6 months before considering a switch. Plan: 10/13/2022 RIGHT EYE: Avastin right eye for Diabetic Macular Edema Follow up for 5 more Avastin in the right eye every 4-5 weeks. Followup: 5-6 weeks after last injection with OCT macula Injection location: [facility] injection slot Addendum 03/15/23: Add one more injection Avastin RIGHT eye at 4-[address] Caicedo 5-6 weeks after last injection with OCT macula both eyes OGIST MD documented in this encounter Plan of Treatment Upcoming Encounters Date Type Department Care Team (Latest Contact Info) Description 04/18/2023 1:10 PM UROLOGIST MD Ancillary Procedure Department of Ophthalmology in [address] [address] 04/18/2023 1:30 PM UROLOGIST MD Appointment Outpatient Procedure Center in [address] [address] Madison Caicedo M.D. [address] [place] [phone] Discharge Disposition: Home or Self Care 05/23/2023 9:45 AM CDT Clinical Communication Virtual Review in [address] [address] 05/26/2023 8:30 AM CDT Ancillary Procedure Department of Ophthalmology in [address] [address] Madison Caicedo M.D. [address] [place] [phone] 05/26/2023 9:00 AM CDT Ancillary Procedure Department of Ophthalmology in [address] [address] Madison Caicedo M.D. [address] [place] [phone] 05/26/2023 9:15 AM CDT Office Visit Department of Ophthalmology in [address] [address] Madison Caicedo M.D. [address] [place] [phone] 05/26/2023 1:20 PM CDT Appointment Outpatient Procedure Center in [place], [place] [address] [place] [address] Madison Caicedo M.D. 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
--- OUTSIDE RECORDS SUMMARY | 2023-03-23 07:27 | XMS_ITS | Encounter Summary ---
Author Name Unknown Organization [facility] Address [address] [place] [address] Care Team Providers Care Pastry Supervisor Name Role Phone Elsewhere, Pcp Primary Care Provider Unavailabl e Encounter Details Date Type Department Care Team (Latest Contact Info) Description 09/07/2022 2:41 PM CDT - 09/07/2022 11:59 PM CDT Hospital Encounter Outpatient Procedure Center in [place], [place] [address] [place] [address] Filemon Mendez M.D. [address] [place] [address] Discharge Disposition: Home or Self Care Social [...] (Latest Contact Info) Description 04/18/2023 1:10 PM COMPLIANCE OFFICER Ancillary Procedure Department of Ophthalmology in [address] [address] 04/18/2023 1:30 PM COMPLIANCE OFFICER Appointment Outpatient Procedure Center in [address] [address] Madison Caicedo M.D. [address] [place] [phone] Discharge Disposition: Home or Self Care 05/23/2023 9:45 AM CDT Clinical Communication Virtual Review in [place], [place] 200 [place] [address] 05/26/2023 8:30 AM CDT Ancillary Procedure Department of Ophthalmology in [address] [address] Madison Caicedo M.D. [address] [place] [phone] 05/26/2023 9:00 AM CDT Ancillary Procedure Department of Ophthalmology in [address] [address] Madison Caicedo M.D. [address] [place] [phone] 05/26/2023 9:15 AM CDT Office Visit Department of Ophthalmology in [place], [place] [address] [place] [address] Madison Caicedo M.D. [address] [place] [address] 05/26/2023 1:20 PM CDT Appointment Outpatient Procedure Center in [place], [place] [address] [place] [address] Madison Caicedo M.D. [address] [place] [address] documented as of this encounter Procedures Procedure Name Priority Date/Time Associated Diagnosis Comments INTRAVITREAL INJECTION, PHARMACOLOGIC AGENT - OD - RIGHT EYE Routine 09/07/2022 2:41 PM CDT Diabetes Mellitus Type 2 With Mild Nonproliferative Diabetic Retinopathy With Macular Edema Hypoglycemic Bilateral (HCC) documented in this encounter Results * Intravitreal Injection, Pharmacologic Agent - OD - Right Eye (09/07/2022 2:41 PM CDT) Narrative Filemon Mendez M.D. - 09/07/2022 3:02 PM CDT Pre-Procedure [...] 25 mg/mL ??Route: intravitreal, Site: Right Eye ??[facility]: 89523-701-55 Balanced salt solution irrigation to injected eye [...] schedule given if requested. Right eye LOT: [id number] EXP: 09/29/22 Filemon Mendez M.D. [facility] PROCED URES documented in this encounter Visit Diagnoses Not on filedocumented in this encounter Care Teams Pastry Supervisor Relationship Specialty Start Date End Date Elsewhere, Pcp PCP - General Family Medicine 02/17/17 documented as of this encounter
--- OUTSIDE RECORDS SUMMARY | 2023-03-23 07:27 | XMS_ITS | Encounter Summary ---
Author Name Unknown Organization [facility] Address [address] [place] [address] Care Team Providers Care Residential Sales Rep Name Role Phone Elsewhere, Pcp Primary Care Provider Unavailabl e Encounter Details Date Type Department Care Team (Latest Contact Info) Description 10/07/2022 Orders Only Department of Ophthalmology in [place], [place] [address] [place] [address] Eliane Laura [address] [place] [address] Diabetes Mellitus Due To Underlying Condition With [...] (Latest Contact Info) Description 04/18/2023 1:10 PM MAILING SPECIALIST Ancillary Procedure Department of Ophthalmology in [place], [place] [address] [place] [address] 04/18/2023 1:30 PM MAILING SPECIALIST Appointment Outpatient Procedure Center in [place], [place] [address] [place] [phone] Madison Caicedo M.D. [address] [place] [phone] Discharge Disposition: Home or Self Care 05/23/2023 9:45 AM CDT Clinical Communication Virtual Review in [place], [place] 200 [place] [address] 05/26/2023 8:30 AM CDT Ancillary Procedure Department of Ophthalmology in [place], [place] [address] [place] [phone] Madison Caicedo M.D. [address] [place] [phone] 05/26/2023 9:00 AM CDT Ancillary Procedure Department of Ophthalmology in [place], [place] [address] [place] [phone] Madison Caicedo M.D. [address] [place] [phone] 05/26/2023 9:15 AM CDT Office Visit Department of Ophthalmology in [address] [address] Madison Caicedo M.D. [address] [place] [phone] 05/26/2023 1:20 PM CDT Appointment Outpatient Procedure Center in [place], [place] [address] [place] [phone] Madison Caicedo M.D. 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
--- OUTSIDE RECORDS SUMMARY | 2023-03-23 07:27 | XMS_ITS | Encounter Summary ---
Author Name Unknown Organization [facility] Address [address] [place] [address] Care Team Providers Care X Ray Equipment Mechanic Name Role Phone Elsewhere, Pcp Primary Care Provider Unavailabl e Reason for Visit * Reason Onset Date Comments Pre-visit Intake 10/08/2022 Encounter Details Date Type Department Care Team (Latest Contact Info) Description 10/08/2022 10:45 AM CDT Clinical Communication Virtual Review in [place], [place] 200 [place] [address] Pre-visit Intake Social History Tobacco Use Types Packs/Day Years [...] (Latest Contact Info) Description 04/18/2023 1:10 PM INTELLIGENCE CHIEF Ancillary Procedure Department of Ophthalmology in [place], [place] [address] [place] [phone] 04/18/2023 1:30 PM INTELLIGENCE CHIEF Appointment Outpatient Procedure Center in [place], [place] [address] [place] [phone] Madison Caicedo M.D. [address] [place] [phone] Discharge Disposition: Home or Self Care 05/23/2023 9:45 AM CDT Clinical Communication Virtual Review in [place], [place] 200 [place] [address] 05/26/2023 8:30 AM CDT Ancillary Procedure Department of Ophthalmology in [place], [place] [address] [place] [phone] Madison Caicedo M.D. [address] [place] [phone] 05/26/2023 9:00 AM CDT Ancillary Procedure Department of Ophthalmology in [place], [place] [address] [place] [phone] Madison Caicedo M.D. [address] [place] [phone] 05/26/2023 9:15 AM CDT Office Visit Department of Ophthalmology in [place], [place] [address] [place] [phone] Madison Caicedo M.D. [address] [place] [phone] 05/26/2023 1:20 PM CDT Appointment Outpatient Procedure Center in [place], [place] [address] [place] [phone] Madison Caicedo M.D. [address] [place] [phone] documented as of this encounter Visit Diagnoses Not on filedocumented in this encounter Care Teams X Ray Equipment Mechanic Relationship Specialty Start Date End Date Elsewhere, Pcp PCP - General Family Medicine 02/17/17 documented as of this encounter
--- OUTSIDE RECORDS SUMMARY | 2023-03-23 07:27 | XMS_ITS | Encounter Summary ---
Author Name Unknown Organization [facility] Address [address] [place] [address] Care Team Providers Care Collection Clerk Name Role Phone Elsewhere, Pcp Primary Care Provider Unavailabl e Reason for Referral * Outpatient (Routine) - Closed Specialty Diagnoses / Procedures Referred By Araceli garza Referred To Contact Diagnoses Diabetes Mellitus Type 2 With Mild Nonproliferative Diabetic Retinopathy With Macular Edema Hypoglycemic Bilateral (HCC) Procedures Intravitreal Injection Gonda Appt Order - OD - Right Eye DC BEVACIZUMAB INJECTION DC INJECTION INTRAVITREAL Madison Caicedo M.D. [address] [place] [address] [facility] Referral ID Status Reason Start Date Expiration Date Visits Re quested Visits Authorized [id number] Closed 06/10/2022 06/10/2023 4 4 Reason for Visit * Outpatient (Routine) - Closed Specialty Diagnoses / Procedures Referred By Araceli garza Referred To Contact Diagnoses Diabetes Mellitus Type 2 With Mild Nonproliferative Diabetic Retinopathy With Macular Edema Hypoglycemic Bilateral (HCC) Procedures Intravitreal Injection Gonda Appt Order - OD - Right Eye DC BEVACIZUMAB INJECTION DC INJECTION INTRAVITREAL Madison Caicedo M.D. [address] [place] [address] [facility] Referral ID Status Reason Start Date Expiration Date Visits Re quested Visits Authorized [id number] Closed 06/10/2022 06/10/2023 4 4 Encounter Details Date Type Department Care Team (Latest Contact Info) Description 10/13/2022 11:45 AM CDT - 10/13/2022 12:38 PM CDT Hospital Encounter Outpatient Procedure Center in [place], [place] [address] [place] [address] Madison Caicedo M.D. [address] [place] [address] Diabetes Mellitus Type 2 With Mild Nonproliferative [...] (Latest Contact Info) Description 04/18/2023 1:10 PM LIFE INSURANCE UNDERWRITER Ancillary Procedure Department of Ophthalmology in [place], [place] [address] [place] [phone] 04/18/2023 1:30 PM LIFE INSURANCE UNDERWRITER Appointment Outpatient Procedure Center in [address] [address] Madison Caicedo M.D. [address] [place] [phone] Discharge Disposition: Home or Self Care 05/23/2023 9:45 AM CDT Clinical Communication Virtual Review in [place], [place] 200 [place] [address] 05/26/2023 8:30 AM CDT Ancillary Procedure Department of Ophthalmology in [address] [address] Madison Caicedo M.D. [address] [place] [phone] 05/26/2023 9:00 AM CDT Ancillary Procedure Department of Ophthalmology in [address] [address] Madison Caicedo M.D. [address] [place] [phone] 05/26/2023 9:15 AM CDT Office Visit Department of Ophthalmology in [address] [address] Madison Caicedo M.D. [address] [place] [phone] 05/26/2023 1:20 PM CDT Appointment Outpatient Procedure Center in [address] [address] Madison Caicedo M.D. [address] [place] [phone] documented as of this encounter Procedures Procedure Name Priority Date/Time Associated Diagnosis Comments INTRAVITREAL INJECTION, PHARMACOLOGIC AGENT - OD - RIGHT EYE Routine 10/13/2022 12:39 PM CDT Diabetes Mellitus Type 2 With Mild Nonproliferative Diabetic Retinopathy With Macular Edema Hypoglycemic Bilateral (HCC) INTRAVITREAL INJECTION, PHARMACOLOGIC AGENT - OD - RIGHT EYE - RST GONDA SCHEDULING ORDER Routine 10/13/2022 11:45 AM CDT Diabetes Mellitus Type 2 With Mild Nonproliferative Diabetic Retinopathy With Macular Edema Hypoglycemic Bilateral (HCC) documented in this encounter Results * Intravitreal Injection, Pharmacologic Agent - OD - Right Eye (10/13/2022 12:39 PM CDT) Filemon Ying M.D. - 10/13/2022 2:29 PM CDT Pre-Procedure Verification Pre-procedure verification conducted [...] 25 mg/mL ??Route: intravitreal, Site: Right Eye ??[facility]: 25562-889-35 Balanced salt solution irrigation to injected eye [...] and return schedule given if requested. Lot [id number] exp 11/19/2022 Filemon Mendez M.D. OPHTH CLINIC PROCED URES [...] DIRECTED OPHTHALMIC IN OR, Starting on [facility] 06/10/22 at 0918, For 365 days Given 03/15/2023 1:47 PM LIFE INSURANCE UNDERWRITER 30 mL Given 02/15/2023 2:30 PM LIFE INSURANCE UNDERWRITER 30 mL Given 01/18/2023 2:55 PM LIFE INSURANCE UNDERWRITER 30 mL carboxymethylcellulose 1 % ophthalmic solution 1 drop (THERATEARS) 1 drop, right eye, As needed, dry eyes, DIRECTED OPHTHALMIC IN OR, Starting on [facility] 06/10/22 at 0918, For 365 days Given 03/15/2023 1:48 PM LIFE INSURANCE UNDERWRITER 1 drop Given 02/15/2023 2:30 PM LIFE INSURANCE UNDERWRITER 1 drop Given 01/18/2023 2:55 PM LIFE INSURANCE UNDERWRITER 1 drop povidone-iodine 5 % ophthalmic solution 1 drop (BETADINE) 1 drop, right eye, As needed, irrigation, DIRECTED OPHTHALMIC IN OR, Starting on [facility] 06/10/22 at 0918, For 365 days, Irrigate ocular and periocular region and leave for 2 mins; then flush with sterile saline solution. Given 03/15/2023 1:48 PM LIFE INSURANCE UNDERWRITER 1 drop Given 02/15/2023 2:30 PM LIFE INSURANCE UNDERWRITER 1 drop Given 01/18/2023 2:55 PM LIFE INSURANCE UNDERWRITER 1 drop proparacaine 0.5 % ophthalmic solution 1 drop (ALCAINE) 1 drop, right eye, As needed, DIRECTED OPHTHALMIC IN OR, Starting on [facility] 06/10/22 at 0918, For 365 days Given 03/15/2023 1:48 PM LIFE INSURANCE UNDERWRITER 1 drop Given 02/15/2023 2:30 PM LIFE INSURANCE UNDERWRITER 1 drop Given 01/18/2023 2:55 PM LIFE INSURANCE UNDERWRITER 1 drop tetracaine (PF) 0.5 % ophthalmic solution 1 drop (ALTACAINE) 1 drop, right eye, As needed, DIRECTED OPHTHALMIC IN OR, Starting on [facility] 06/10/22 at 0918, For 365 days Given 03/15/2023 1:47 PM LIFE INSURANCE UNDERWRITER 1 drop Given 02/15/2023 2:30 PM LIFE INSURANCE UNDERWRITER 1 drop Given 01/18/2023 2:55 PM LIFE INSURANCE UNDERWRITER 1 drop Inactive Administered Medications - up to 3 most recent administrations Medication Order MAR Action Action Date Dose Rate Site bevacizumab intraocular injection 1.25 mg (AVASTIN) 1.25 mg, intravitreal, As needed, DIRECTED OPHTHALMIC IN OR, Starting on Tue10/13/22 at 1429, Inject into right eye. Given 10/13/2022 2:29 PM CDT 1.25 mg Right Eye documented in this encounter Care Teams Collection Clerk Relationship Specialty Start Date End Date Elsewhere, Pcp PCP - General Family Medicine 02/17/17 documented as of this encounter
--- OUTSIDE RECORDS SUMMARY | 2023-03-23 07:27 | XMS_ITS | Encounter Summary ---
Author Name Unknown Organization [facility] Address [address] [place] [address] Care Team Providers Care Chief Business Officer Name Role Phone Elsewhere, Pcp Primary Care Provider Unavailabl e Encounter Details Date Type Department Care Team (Latest Contact Info) Description 08/10/2022 2:13 PM CDT - 08/10/2022 11:59 PM CDT Hospital Encounter Outpatient Procedure Center in [place], [place] [address] [place] [address] Filemon Mendez M.D. [address] [place] [address] Discharge Disposition: Home or Self Care Social [...] (Latest Contact Info) Description 04/18/2023 1:10 PM SOIL SURVEYOR Ancillary Procedure Department of Ophthalmology in [address] [phone] 04/18/2023 1:30 PM SOIL SURVEYOR Appointment Outpatient Procedure Center in [address] [address] Madison Caicedo M.D. [address] [place] [phone] Discharge Disposition: Home or Self Care 05/23/2023 9:45 AM CDT Clinical Communication Virtual Review in [place], [place] 200 [place] [address] 05/26/2023 8:30 AM CDT Ancillary Procedure Department of Ophthalmology in [address] [address] Madison Caicedo M.D. [address] [place] [phone] 05/26/2023 9:00 AM CDT Ancillary Procedure Department of Ophthalmology in [address] [address] Madison Caicedo M.D. [address] [place] [phone] 05/26/2023 9:15 AM CDT Office Visit Department of Ophthalmology in [place], [place] [address] [place] [address] Madison Caicedo M.D. [address] [place] [address] 05/26/2023 1:20 PM CDT Appointment Outpatient Procedure Center in [place], [place] [address] [place] [address] Madison Caicedo M.D. [address] [place] [address] documented as of this encounter Procedures Procedure Name Priority Date/Time Associated Diagnosis Comments INTRAVITREAL INJECTION, PHARMACOLOGIC AGENT - OD - RIGHT EYE Routine 08/10/2022 2:13 PM CDT Diabetes Mellitus Type 2 With Mild Nonproliferative Diabetic Retinopathy With Macular Edema Hypoglycemic Bilateral (HCC) documented in this encounter Results * Intravitreal Injection, Pharmacologic Agent - OD - Right Eye (08/10/2022 2:13 PM CDT) Narrative Filemon Mendez M.D. - 08/10/2022 3:14 PM CDT Pre-Procedure [...] Site: Right Eye ??[facility]: 86860-604-96 Balanced salt solution irrigation to injected eye [...] and return schedule given if requested. Lot [id number] exp 09/21/2022 Filemon Mendez M.D. [facility] PROCED URES documented in this encounter Visit Diagnoses Not on filedocumented in this encounter Care Teams Chief Business Officer Relationship Specialty Start Date End Date Elsewhere, Pcp PCP - General Family Medicine 02/17/17 documented as of this encounter
--- OUTSIDE RECORDS SUMMARY | 2023-03-23 07:27 | XMS_ITS | Encounter Summary ---
Author Name Unknown Organization [facility] Address [address] [place] [address] Care Team Providers Care Contract Serviceman Name Role Phone Elsewhere, Pcp Primary Care Provider Unavailabl e Encounter Details Date Type Department Care Team (Late st Contact Info) Description 10/13/2022 Ancillary Procedure Department of Ophthalmology Social History Tobacco Use Types Packs/Day Years [...] (Latest Contact Info) Description 04/18/2023 1:10 PM BLOW MOLD MACHINE OPERATOR Ancillary Procedure Department of Ophthalmology in [place], [place] [address] [place] [phone] 04/18/2023 1:30 PM BLOW MOLD MACHINE OPERATOR Appointment Outpatient Procedure Center in [place], [place] [address] [place] [phone] Madison Caicedo M.D. [address] [place] [phone] Discharge Disposition: Home or Self Care 05/23/2023 9:45 AM CDT Clinical Communication Virtual Review in [place], [place] 200 [place] [address] 05/26/2023 8:30 AM CDT Ancillary Procedure Department of Ophthalmology in [place], [place] [address] [place] [phone] Madison Caicedo M.D. [address] [place] [phone] 05/26/2023 9:00 AM CDT Ancillary Procedure Department of Ophthalmology in [address] [address] Madison Caicedo M.D. [address] [place] [phone] 05/26/2023 9:15 AM CDT Office Visit Department of Ophthalmology in [address] [address] Madison Caicedo M.D. [address] [place] [phone] 05/26/2023 1:20 PM CDT Appointment Outpatient Procedure Center in [address] [address] Madison Caicedo M.D. [address] [place] [phone] documented as of this encounter Procedures Procedure Name Priority Date/Time Associated Diagnosis Comments OPHTHALMOLOGY IMAGE EXAM Routine 10/13/2022 12:00 AM CDT documented in this encounter Results * Eyes Spectralis OCT-Ophthalmology Image Exam (10/13/2022 12:00 AM CDT) Narrative IIMS - 10/13/2022 9:15 AM CDT This order has been created and auto-finalized to support the import of images acquired without order. The clinical documentation to support these images can be found on the encounter that produced images. Provider Not In System IMG NON RAD IMAGI NG PROCEDURES [facility] NA documented in this encounter Visit Diagnoses Not on filedocumented in this encounter Care Teams Contract Serviceman Relationship Specialty Start Date End Date Elsewhere, Pcp PCP - General Family Medicine 02/17/17 documented as of this encounter
--- OUTSIDE RECORDS SUMMARY | 2023-03-23 07:27 | XMS_ITS | Encounter Summary ---
Author Name Unknown Organization [facility] Address [address] [place] [address] Care Team Providers Care Personal Property Appraiser Name Role Phone Elsewhere, Pcp Primary Care Provider Unavailabl e Encounter Details Date Type Department Care Team (Latest Contact Info) Description 10/13/2022 12:39 PM CDT - 10/13/2022 11:59 PM CDT Hospital Encounter Outpatient Procedure Center in [place], [place] [address] [place] [address] Filemon Mendez M.D. [address] [place] [address] Discharge Disposition: Home or Self Care Social [...] (Latest Contact Info) Description 04/18/2023 1:10 PM SHAKER SCREEN OPERATOR Ancillary Procedure Department of Ophthalmology in [address] [address] 04/18/2023 1:30 PM SHAKER SCREEN OPERATOR Appointment Outpatient Procedure Center in [address] [address] Madison Caicedo M.D. [address] [place] [phone] Discharge Disposition: Home or Self Care 05/23/2023 9:45 AM CDT Clinical Communication Virtual Review in [place], [place] 200 [place] [address] 05/26/2023 8:30 AM CDT Ancillary Procedure Department of Ophthalmology in [address] [address] Madison Caicedo M.D. [address] [place] [phone] 05/26/2023 9:00 AM CDT Ancillary Procedure Department of Ophthalmology in [address] [address] Madison Caicedo M.D. [address] [place] [phone] 05/26/2023 9:15 AM CDT Office Visit Department of Ophthalmology in [place], [place] [address] [place] [address] Madison Caicedo M.D. [address] [place] [address] 05/26/2023 1:20 PM CDT Appointment Outpatient Procedure Center in [place], [place] [address] [place] [address] Madison Caicedo M.D. 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 - 10/13/2022 2:29 PM CDT Pre-Procedure [...] 25 mg/mL ??Route: intravitreal, Site: Right Eye ??[facility]: 54905-064-56 Balanced salt solution irrigation to injected eye [...] and return schedule given if requested. Lot [id number] exp 11/19/2022 Filemon Mendez M.D. [facility] PROCED URES documented in this encounter Visit Diagnoses Not on filedocumented in this encounter Care Teams Personal Property Appraiser Relationship Specialty Start Date End Date Elsewhere, Pcp PCP - General Family Medicine 02/17/17 documented as of this encounter
--- OUTSIDE RECORDS SUMMARY | 2023-03-23 07:28 | XMS_ITS | Encounter Summary ---
Author Name Unknown Organization 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 [address] [place] [address] [facility] Referral ID Status Reason Start Date Expiration Date Visits Re quested Visits Authorized [id number] Closed 06/10/2022 06/10/2023 3 3 Encounter Details Date Type Department Care Team (Latest Contact Info) Description 07/13/2022 2:20 PM CDT Ancillary Procedure Department of Ophthalmology in [place], [place] [address] [place] [phone] Madison Caicedo M.D. [address] [place] [address] Diabetes Mellitus Type 2 With [...] (Latest Contact Info) Description 04/18/2023 1:10 PM SPECIAL NEEDS CAREGIVER Ancillary Procedure Department of Ophthalmology in [address] [address] 04/18/2023 1:30 PM SPECIAL NEEDS CAREGIVER Appointment Outpatient Procedure Center in [address] [address] Madison Caicedo M.D. [address] [place] [phone] Discharge Disposition: Home or Self Care 05/23/2023 9:45 AM CDT Clinical Communication Virtual Review in [address] [address] 05/26/2023 8:30 AM CDT Ancillary Procedure Department of Ophthalmology in [address] [address] Madison Caicedo M.D. [address] [place] [phone] 05/26/2023 9:00 AM CDT Ancillary Procedure Department of Ophthalmology in [address] [address] Madison Caicedo M.D. [address] [place] [phone] 05/26/2023 9:15 AM CDT Office Visit Department of Ophthalmology in [address] [address] Madison Caicedo M.D. [address] [place] [phone] 05/26/2023 1:20 PM CDT Appointment Outpatient Procedure Center in [place], [place] [address] [place] [address] Madison Caicedo M.D. 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
--- OUTSIDE RECORDS SUMMARY | 2023-03-23 07:28 | XMS_ITS | Encounter Summary ---
Author Name Unknown Organization [facility] Address [address] [place] [address] Care Team Providers Care Mechanical Systems Design Engineer Name Role Phone Elsewhere, Pcp Primary Care Provider Unavailabl e Encounter Details Date Type Department Care Team (Latest Contact Info) Description 06/10/2022 3:58 PM CDT - 06/10/2022 11:59 PM CDT Hospital Encounter Outpatient Procedure Center in [place], [place] [address] [place] [address] Teodoro Pedroza M.D. [address] [place] [address] Discharge Disposition: Home or Self Care Social [...] (Latest Contact Info) Description 04/18/2023 1:10 PM PRODUCTION COUNTER Ancillary Procedure Department of Ophthalmology in [address] [phone] 04/18/2023 1:30 PM PRODUCTION COUNTER Appointment Outpatient Procedure Center in [address] [address] Madison Caicedo M.D. [address] [place] [phone] Discharge Disposition: Home or Self Care 05/23/2023 9:45 AM CDT Clinical Communication Virtual Review in [place], [place] 200 [place] [address] 05/26/2023 8:30 AM CDT Ancillary Procedure Department of Ophthalmology in [address] [address] Madison Caicedo M.D. [address] [place] [phone] 05/26/2023 9:00 AM CDT Ancillary Procedure Department of Ophthalmology in [address] [address] Madison Caicedo M.D. [address] [place] [phone] 05/26/2023 9:15 AM CDT Office Visit Department of Ophthalmology in [place], [place] [address] [place] [address] Madison Caicedo M.D. [address] [place] [address] 05/26/2023 1:20 PM CDT Appointment Outpatient Procedure Center in [place], [place] [address] [place] [address] Madison Caicedo M.D. 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 - 06/10/2022 4:19 PM CDT Pre-Procedure Verification Pre-procedure verification conducted to verify correct patient identity, procedure to be performed and, as applicable, correct side and site. Patient ID band validated and present. Patient consent obtained. 06/10/2022. Time Out Confirmed correct patient, procedure, site, and patient consented. Anesthesia Topical anesthesia was used. Pre/Post Procedure prep and meds used were Celluvisc 1-10 drops, Povidone 10% swabs x 3 to lids and lashes, Proparacaine 0.5% 1-10 drops, Tetracaine 0.5% 1-10 drops. Procedure Details Injection: 1.25 mg bevacizumab 25 mg/mL ??Route: intravitreal, Site: Right Eye ??[facility]: 35058-422-54 Balanced salt solution irrigation to injected eye after the injection was Done. Hand motion was present. Reviewed instructions and patient verbalizes understanding. Notes Patient oriented to outpatient procedure center. ??Reviewed process for scheduled procedure, and pain management including pain scale. Patient declines written post-procedure material or previously received brochure. ?? Information reviewed and understanding assessed by teach-back. ??Follow-up appointments discussed and return schedule given if requested. LOT: [id number] EXP: 07/15/2022 Teodoro Pedroza M.D. [facility] PROCEDU RES documented in this encounter Visit Diagnoses Not on filedocumented in this encounter Care Teams Mechanical Systems Design Engineer Relationship Specialty Start Date End Date Elsewhere, Pcp PCP - General Family Medicine 02/17/17 documented as of this encounter
--- OUTSIDE RECORDS SUMMARY | 2023-03-23 07:28 | XMS_ITS | Encounter Summary ---
Author Name Unknown Organization [facility] Address [address] [place] [address] Care Team Providers Care Wool Carder Name Role Phone Elsewhere, Pcp Primary Care Provider Unavailabl e Reason for Referral * Outpatient (Routine) - Closed Specialty Diagnoses / Procedures Referred By Araceli garza Referred To Contact Ophthalmology Madison Caicedo M.D. [address] [place] [address] [facility] Referral ID Status Reason Start Date Expiration Date Visits Re quested Visits Authorized [id number] Closed 06/10/2022 06/09/2025 1 1 Scheduling Instructions Plan: 06/10/2022 ?? RIGHT EYE: Avastin right eye for Diabetic Macular Edema Follow up for 3 more Avastin in the right eye every 4-5 weeks. ?? 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 [address] [place] [address] 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 [address] [place] [phone] [facility] Referral ID Status Reason Start Date Expiration Date Visits Re quested Visits Authorized [id number] Closed 06/10/2022 06/10/2023 3 3 Encounter Details Date Type Department Care Team (Latest Contact Info) Description 06/10/2022 Orders Only Department of Ophthalmology in [place], [place] [address] [place] [phone] Tamar Younger C.O.A. [address] [place] [phone] Diabetes Mellitus Type 2 With Mild Nonproliferative [...] (Latest Contact Info) Description 04/18/2023 1:10 PM NECKTIE OPERATOR POCKETS AND PIECES Ancillary Procedure Department of Ophthalmology in [place], [place] [address] [place] [address] 04/18/2023 1:30 PM NECKTIE OPERATOR POCKETS AND PIECES Appointment Outpatient Procedure Center in [place], [place] [address] [place] [phone] Madison Caicedo M.D. [address] [place] [phone] Discharge Disposition: Home or Self Care 05/23/2023 9:45 AM CDT Clinical Communication Virtual Review in [place], [place] 200 [place] [address] 05/26/2023 8:30 AM CDT Ancillary Procedure Department of Ophthalmology in [address] [address] Madison Caicedo M.D. [address] [place] [phone] 05/26/2023 9:00 AM CDT Ancillary Procedure Department of Ophthalmology in [place], [place] [address] [place] [phone] Madison Caicedo M.D. [address] [place] [phone] 05/26/2023 9:15 AM CDT Office Visit Department of Ophthalmology in [address] [address] Madison Caicedo M.D. [address] [place] [phone] 05/26/2023 1:20 PM CDT Appointment Outpatient Procedure Center in [address] [address] Madison Caicedo M.D. 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) 4-5 weeks for 3 Occurrences starting 06/10/2022 until 09/10/2023 Scheduled Referrals Name Type Priority Associated Diagnoses Order Schedule Ophthalmology office visit (clinic) Outpatient Referral Routine 1 Occurrences starting 06/10/2022 until 09/10/2023 documented as of this encounter Results * Optical Coherence Tomography [...] With Macular Edema Hypoglycemic Bilateral (HCC)- Primary 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
--- OUTSIDE RECORDS SUMMARY | 2023-03-23 07:28 | XMS_ITS | Encounter Summary ---
Author Name Unknown Organization [facility] Address [address] [place] [address] Care Team Providers Care Engineering Inspection Assistant Name Role Phone Elsewhere, Pcp Primary Care Provider Unavailabl e Encounter Details Date Type Department Care Team (Latest Contact Info) Description 08/04/2022 Orders Only Department of Ophthalmology in [place], [place] [address] [place] [address] Eliane Laura [address] [place] [address] Diabetes Mellitus Due To Underlying Condition With [...] (Latest Contact Info) Description 04/18/2023 1:10 PM PROCESSOR INSPECTOR Ancillary Procedure Department of Ophthalmology in [place], [place] [address] [place] [address] 04/18/2023 1:30 PM PROCESSOR INSPECTOR Appointment Outpatient Procedure Center in [place], [place] [address] [place] [phone] Madison Caicedo M.D. [address] [place] [phone] Discharge Disposition: Home or Self Care 05/23/2023 9:45 AM CDT Clinical Communication Virtual Review in [place], [place] 200 [place] [address] 05/26/2023 8:30 AM CDT Ancillary Procedure Department of Ophthalmology in [place], [place] [address] [place] [phone] Madison Caicedo M.D. [address] [place] [phone] 05/26/2023 9:00 AM CDT Ancillary Procedure Department of Ophthalmology in [place], [place] [address] [place] [phone] Madison Caicedo M.D. [address] [place] [phone] 05/26/2023 9:15 AM CDT Office Visit Department of Ophthalmology in [address] [phone] Madison Caicedo M.D. [address] [place] [phone] 05/26/2023 1:20 PM CDT Appointment Outpatient Procedure Center in [place], [place] [address] [place] [phone] Madison Caicedo M.D. 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
--- OUTSIDE RECORDS SUMMARY | 2023-03-23 07:28 | XMS_ITS | Encounter Summary ---
Author Name Unknown Organization [facility] Address [address] [place] [address] Care Team Providers Care Import Coordinator Name Role Phone Elsewhere, Pcp Primary Care Provider Unavailabl e Encounter Details Date Type Department Care Team (Late Contact Info) Description 06/08/2022 9:25 AM CDT Ancillary Procedure Department of Ophthalmology Social History [...] (Latest Contact Info) Description 04/18/2023 1:10 PM INSIDE SALES RECRUITER Ancillary Procedure Department of Ophthalmology in [place], [place] [address] [place] [address] 04/18/2023 1:30 PM INSIDE SALES RECRUITER Appointment Outpatient Procedure Center in [place], [place] [address] [place] [address] Madison Caicedo M.D. [address] [place] [phone] Discharge Disposition: Home or Self Care 05/23/2023 9:45 AM CDT Clinical Communication Virtual Review in [place], [place] 200 [place] [address] 05/26/2023 8:30 AM CDT Ancillary Procedure Department of Ophthalmology in [place], [place] [address] [place] [phone] Madison Caicedo M.D. [address] [place] [phone] 05/26/2023 9:00 AM CDT Ancillary Procedure Department of Ophthalmology in [place], [place] [address] [place] [phone] Madison Caicedo M.D. [address] [place] [phone] 05/26/2023 9:15 AM CDT Office Visit Department of Ophthalmology in [place], [place] [address] [place] [phone] Madison Caicedo M.D. [address] [place] [phone] 05/26/2023 1:20 PM CDT Appointment Outpatient Procedure Center in [address] [address] Madison Caicedo M.D. [address] [place] [phone] documented as of this encounter Procedures Procedure Name Priority Date/Time Associated Diagnosis Comments OPHTHALMOLOGY IMAGE EXAM Routine 06/08/2022 9:25 AM CDT documented in this encounter Results * [employer]-Ophthalmology Image Exam (06/08/2022 9:25 AM CDT) 06/08/2022 9:22 AM CDT Narrative IIMS - 06/08/2022 9:44 AM CDT This order has been created and auto-finalized to support the import of images acquired without order. The clinical documentation to support these images can be found on the encounter that produced images. Provider Not In System IMG NON RAD IMAGI NG PROCEDURES IIMS NA documented in this encounter Visit Diagnoses Not on filedocumented in this encounter Care Teams Import Coordinator Relationship Specialty Start Date End Date Elsewhere, Pcp PCP - General Family Medicine 02/17/17 documented as of this encounter
--- OUTSIDE RECORDS SUMMARY | 2023-03-23 07:28 | XMS_ITS | Encounter Summary ---
Author Name Unknown Organization [facility] Address [address] [place] [address] Care Team Providers Care Salon Coordinator Name Role Phone Elsewhere, Pcp Primary Care Provider Unavailabl e Encounter Details Date Type Department Care Team (Latest Contact Info) Description 06/10/2022 3:58 PM CDT - 06/10/2022 11:59 PM CDT Hospital Encounter Outpatient Procedure Center in [place], [place] [address] [place] [address] Teodoro Pedroza M.D. [address] [place] [address] Discharge Disposition: Home or Self [...] (Latest Contact Info) Description 04/18/2023 1:[address] SQL DEVELOPER Ancillary Procedure Department of Ophthalmology in [address] [address] 04/18/2023 1:[address] SQL DEVELOPER Appointment Outpatient Procedure Center in [address] [phone] Madison Caicedo M.D. [address] [place] [phone] Discharge Disposition: Home or Self Care 05/23/2023 9:45 AM CDT Clinical Communication Virtual Review in [place], [place] 200 [place] [address] 05/26/2023 8:30 AM CDT Ancillary Procedure Department of Ophthalmology in [address] [address] Madison Caicedo M.D. [address] [place] [phone] 05/26/2023 9:00 AM CDT Ancillary Procedure Department of Ophthalmology in [address] [address] Madison Caicedo M.D. [address] [place] [phone] 05/26/2023 9:15 AM CDT Office Visit Department of Ophthalmology in [place], [place] [address] [place] [address] Madison Caicedo M.D. [address] [place] [address] 05/26/2023 1:20 PM CDT Appointment Outpatient Procedure Center in [place], [place] [address] [place] [address] Madison Caicedo M.D. [address] [place] [address] documented as of this encounter Results * Intravitreal Injection, Pharmacologic [...] 25 mg/mL ??Route: intravitreal, Site: Right Eye ??[facility]: [id number] Balanced salt solution irrigation to injected eye [...] and return schedule given if requested. LOT: [id number] EXP: 07/15/2022 Teodoro Pedroza M.D. [facility] PROCEDU RES documented in this encounter Visit Diagnoses Not on filedocumented in this encounter Care Teams Salon Coordinator Relationship Specialty Start Date End Date Elsewhere, Pcp PCP - General Family Medicine 02/17/17 documented as of this encounter
--- OUTSIDE RECORDS SUMMARY | 2023-03-23 07:28 | XMS_ITS | Encounter Summary ---
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 [address] [place] [address] [facility] Referral ID Status Reason Start Date Expiration Date Visits Re quested Visits Authorized [id number] Closed 05/13/2022 05/13/2023 1 1 Encounter Details Date Type Department Care Team (Latest Contact Info) Description 06/10/2022 8:30 AM CDT Comprehensive Visit Department of Ophthalmology in [place], [place] [address] [place] [phone] Madison Caicedo M.D. 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 - 06/10/2022 8:30 AM CDT This is a useful web resource on diabetic retinopathy: https://www.asrs.org/patients/retinal-diseases/3/diabetic-retinopathy This is a useful web resource on macular edema: https://www.asrs.org/patients/retinal-diseases/20/macular-edema documented in this encounter Progress Notes * Madison Caicedo M.D. - 06/10/2022 8:30 AM CDT Karsten Hurley Sandhya Here for referral for DME. This patient was referred by Wendy Ramires O.D.. FA results: 06/10/2022 right eye: no neovascularization; mild macular edema, central floater; MAs left eye: no neovascularization, macular hyperfluorescence temporal; [facility] OCT macula: 06/10/2022 right eye: macular edema left eye: no fluid; temporal area of photoreceptor loss. 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 Followup: 5-6 weeks after last injection with OCT macula Injection location: [facility] injection slot documented in this encounter Plan of Treatment Upcoming Encounters Date Type Department Care Team (Latest Contact Info) Description 04/18/2023 1:10 PM PHOSPHATIC FERTILIZER SUPERVISOR Ancillary Procedure Department of Ophthalmology in [address] [address] 04/18/2023 1:30 PM PHOSPHATIC FERTILIZER SUPERVISOR Appointment Outpatient Procedure Center in [address] [address] Madison Caicedo M.D. [address] [place] [phone] Discharge Disposition: Home or Self Care 05/23/2023 9:45 AM CDT Clinical Communication Virtual Review in [address] [address] 05/26/2023 8:30 AM CDT Ancillary Procedure Department of Ophthalmology in [address] [address] Madison Caicedo M.D. [address] [place] [phone] 05/26/2023 9:00 AM CDT Ancillary Procedure Department of Ophthalmology in [address] [address] Madison Caicedo M.D. [address] [place] [address] 05/26/2023 9:15 AM CDT Office Visit Department of Ophthalmology in [address] [address] Madison Caicedo M.D. [address] [place] [phone] 05/26/2023 1:20 PM CDT Appointment Outpatient Procedure Center in [place], [place] [address] [place] [address] Madison Caicedo M.D. 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
--- OUTSIDE RECORDS SUMMARY | 2023-03-23 07:28 | XMS_ITS | Encounter Summary ---
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 [address] [place] [address] Rst Oph Shaila [address] [place] [phone] Referral ID Status Reason Start Date Expiration Date Visits Re quested Visits Authorized [id number] Closed 06/08/2022 06/08/2023 1 1 Encounter Details Date Type Department Care Team (Latest Contact Info) Description 06/08/2022 10:15 AM CDT Procedure visit Department of Ophthalmology in [place], [place] [address] [place] [address] Madison Jade M.D. [address] [place] [address] Vijay Mejia Diabetes Mellitus Type 2 With Mild Nonproliferative [...] as of this encounter Progress Notes * Vijay Mejia - 06/08/2022 10:15 AM CDT Patient was assessed for Angiogram. Verified education and informed consent has been completed. Patient fits discharge criteria; patient sent to have IV removed. Dr. JADE is the authorizing prescriber who directed the protocol. Patient's creatinine level is Adverse reaction noted: NONE. documented in this encounter Plan of Treatment Upcoming Encounters Date Type Department Care Team (Latest Contact Info) Description 04/18/2023 1:10 PM AUTOMOTIVE FLEET SUPERVISOR Ancillary Procedure Department of Ophthalmology in [address] [address] 04/18/2023 1:30 PM AUTOMOTIVE FLEET SUPERVISOR Appointment Outpatient Procedure Center in [address] [address] Madison Jade M.D. [address] [place] [phone] Discharge Disposition: Home or Self Care 05/23/2023 9:45 AM CDT Clinical Communication Virtual Review in [place], [place] 200 [place] [address] 05/26/2023 8:30 AM CDT Ancillary Procedure Department of Ophthalmology in [address] [address] Madison Jade M.D. [address] [place] [phone] 05/26/2023 9:00 AM CDT Ancillary Procedure Department of Ophthalmology in [place], [place] [address] [place] [phone] Madison Jade M.D. [address] [place] [phone] 05/26/2023 9:15 AM CDT Office Visit Department of Ophthalmology in [place], [place] [address] [place] [phone] Madison Jade M.D. [address] [place] [phone] 05/26/2023 1:20 PM CDT Appointment Outpatient Procedure Center in [place], [place] [address] [place] [phone] Madison Jade M.D. 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 Fluorescein dose given is normal. Left Eye Dye used is fluorescein. Fluorescein dose given is normal. Notes See clinical note from 06/10/2022 ??for interpretation. Madison Jade MD Madison Jade M.D. OPHTH PHOTOGRAPHY OPHTHALMOLOGY IMAGING EXAM documented in this encounter [...] MAR Action Action Date Dose Rate Site sodium chloride 0.9 % injection 3 mL 3 mL, intravenous, As needed, line care, to flush IV prior to and following infusion, or between multiple consecutive infusions, Starting on Tue06/02/22 at 1743 Given 06/08/2022 9:20 AM CDT 3 mL Inactive Administered Medications - up to 3 most recent administrations Medication Order MAR Action Action Date Dose Rate Site fluorescein 100 mg/mL (10 %) injection 500 mg (AK-FLUOR/FLUORESCEIN) 500 mg, intravenous, Once in imaging, contrast, Starting on Tue06/02/22 at 1743, For 1 dose, IV push over 5 - 10 seconds Given 06/08/2022 9:19 AM CDT 500 mg documented in this encounter Care Teams Tire Duster Relationship Specialty Start Date End Date Elsewhere, Pcp PCP - General Family Medicine 02/17/17 documented as of this encounter
--- OUTSIDE RECORDS SUMMARY | 2023-03-23 07:28 | XMS_ITS | Encounter Summary ---
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 [address] [place] [address] [facility] Referral ID Status Reason Start Date Expiration Date Visits Re quested Visits Authorized [id number] Closed 06/10/2022 06/10/2023 4 4 Encounter Details Date Type Department Care Team (Latest Contact Info) Description 07/13/2022 2:21 PM CDT - 07/13/2022 2:35 PM CDT Hospital Encounter Outpatient Procedure Center in [place], [place] [address] [place] [address] Madison Caicedo M.D. [address] [place] [address] Diabetes Mellitus Type 2 With Mild Nonproliferative [...] (Latest Contact Info) Description 04/18/2023 1:10 PM SPRAY I PAINTER Ancillary Procedure Department of Ophthalmology in [place], [place] [address] [place] [phone] 04/18/2023 1:30 PM SPRAY I PAINTER Appointment Outpatient Procedure Center in [address] [address] Madison Caicedo M.D. [address] [place] [phone] Discharge Disposition: Home or Self Care 05/23/2023 9:45 AM CDT Clinical Communication Virtual Review in [place], [place] 200 [place] [address] 05/26/2023 8:30 AM CDT Ancillary Procedure Department of Ophthalmology in [address] [address] Madison Caicedo M.D. [address] [place] [phone] 05/26/2023 9:00 AM CDT Ancillary Procedure Department of Ophthalmology in [address] [address] Madison Caicedo M.D. [address] [place] [phone] 05/26/2023 9:15 AM CDT Office Visit Department of Ophthalmology in [address] [address] Madison Caicedo M.D. [address] [place] [phone] 05/26/2023 1:20 PM CDT Appointment Outpatient Procedure Center in [address] [address] Madison Caicedo M.D. 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 - 07/13/2022 3:34 PM CDT Pre-Procedure Verification Pre-procedure verification conducted [...] 25 mg/mL ??Route: intravitreal, Site: Right Eye ??[facility]: 14490-828-15 Balanced salt solution irrigation to injected eye [...] and return schedule given if requested. Lot # [id number] Exp. 08/26/22 Teodoro Pedroza M.D. OPHTH CLINIC PROCEDU RES documented in [...] needed, DIRECTED OPHTHALMIC IN OR, Starting on [facility] 06/10/22 at 0918, For 365 days Given 03/15/2023 1:47 PM SPRAY I PAINTER 30 mL Given 02/15/2023 2:30 PM SPRAY I PAINTER 30 mL Given 01/18/2023 2:55 PM SPRAY I PAINTER 30 mL carboxymethylcellulose 1 % ophthalmic solution 1 drop (THERATEARS) 1 drop, right eye, As needed, dry eyes, DIRECTED OPHTHALMIC IN OR, Starting on [facility] 06/10/22 at 0918, For 365 days Given 03/15/2023 1:48 PM SPRAY I PAINTER 1 drop Given 02/15/2023 2:30 PM SPRAY I PAINTER 1 drop Given 01/18/2023 2:55 PM SPRAY I PAINTER 1 drop povidone-iodine 5 % ophthalmic solution 1 drop (BETADINE) 1 drop, right eye, As needed, irrigation, DIRECTED OPHTHALMIC IN OR, Starting on [facility] 06/10/22 at 0918, For 365 days, Irrigate ocular and periocular region and leave for 2 mins; then flush with sterile saline solution. Given 03/15/2023 1:48 PM SPRAY I PAINTER 1 drop Given 02/15/2023 2:30 PM SPRAY I PAINTER 1 drop Given 01/18/2023 2:55 PM SPRAY I PAINTER 1 drop proparacaine 0.5 % ophthalmic solution 1 drop (ALCAINE) 1 drop, right eye, As needed, DIRECTED OPHTHALMIC IN OR, Starting on [facility] 06/10/22 at 0918, For 365 days Given 03/15/2023 1:48 PM SPRAY I PAINTER 1 drop Given 02/15/2023 2:30 PM SPRAY I PAINTER 1 drop Given 01/18/2023 2:55 PM SPRAY I PAINTER 1 drop tetracaine (PF) 0.5 % ophthalmic solution 1 drop (ALTACAINE) 1 drop, right eye, As needed, DIRECTED OPHTHALMIC IN OR, Starting on [facility] 06/10/22 at 0918, For 365 days Given 03/15/2023 1:47 PM SPRAY I PAINTER 1 drop Given 02/15/2023 2:30 PM SPRAY I PAINTER 1 drop Given 01/18/2023 2:55 PM SPRAY I PAINTER 1 drop Inactive Administered Medications - up to 3 most recent administrations Medication Order MAR Action Action Date Dose Rate Site bevacizumab intraocular injection 1.25 mg (AVASTIN) 1.25 mg, intravitreal, As needed, DIRECTED OPHTHALMIC IN OR, Starting on Tue07/13/22 at 1534, Inject into right eye. Given 07/13/2022 3:34 PM CDT 1.25 mg Right Eye documented in this encounter Care Teams Elevator Dispatcher Relationship Specialty Start Date End Date Elsewhere, Pcp PCP - General Family Medicine 02/17/17 documented as of this encounter
--- OUTSIDE RECORDS SUMMARY | 2023-03-23 07:28 | XMS_ITS | Encounter Summary ---
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 [address] [place] [address] [facility] Referral ID Status Reason Start Date Expiration Date Visits Re quested Visits Authorized [id number] Closed 06/10/2022 06/10/2023 3 3 Encounter Details Date Type Department Care Team (Latest Contact Info) Description 08/10/2022 2:00 PM CDT Ancillary Procedure Department of Ophthalmology in [place], [place] [address] [place] [phone] Madison Caicedo M.D. [address] [place] [address] Diabetes Mellitus Type 2 With [...] (Latest Contact Info) Description 04/18/2023 1:10 PM PRODUCT SAFETY EXPERT Ancillary Procedure Department of Ophthalmology in [address] [address] 04/18/2023 1:30 PM PRODUCT SAFETY EXPERT Appointment Outpatient Procedure Center in [address] [address] Madison Caicedo M.D. [address] [place] [phone] Discharge Disposition: Home or Self Care 05/23/2023 9:45 AM CDT Clinical Communication Virtual Review in [address] [address] 05/26/2023 8:30 AM CDT Ancillary Procedure Department of Ophthalmology in [address] [address] Madison Caicedo M.D. [address] [place] [phone] 05/26/2023 9:00 AM CDT Ancillary Procedure Department of Ophthalmology in [address] [address] Madison Caicedo M.D. [address] [place] [phone] 05/26/2023 9:15 AM CDT Office Visit Department of Ophthalmology in [address] [address] Madison Caicedo M.D. [address] [place] [phone] 05/26/2023 1:20 PM CDT Appointment Outpatient Procedure Center in [place], [place] [address] [place] [address] Madison Caicedo M.D. 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
--- OUTSIDE RECORDS SUMMARY | 2023-03-23 07:28 | XMS_ITS | Encounter Summary ---
Author Name Unknown Organization [facility] Address [address] [place] [address] Care Team Providers Care Web Press Jogger Name Role Phone Elsewhere, Pcp Primary Care Provider Unavailabl e Encounter Details Date Type Department Care Team (Latest Contact Info) Description 07/13/2022 2:36 PM CDT - 07/13/2022 11:59 PM CDT Hospital Encounter Outpatient Procedure Center in [place], [place] [address] [place] [address] Teodoro Pedroza M.D. [address] [place] [address] Discharge Disposition: Home or Self [...] (Latest Contact Info) Description 04/18/2023 1:10 PM EMBRYOLOGY TEACHER Ancillary Procedure Department of Ophthalmology in [address] [address] 04/18/2023 1:30 PM EMBRYOLOGY TEACHER Appointment Outpatient Procedure Center in [address] [address] Madison Caicedo M.D. [address] [place] [phone] Discharge Disposition: Home or Self Care 05/23/2023 9:45 AM CDT Clinical Communication Virtual Review in [place], [place] [address] [place] [address] 05/26/2023 8:30 AM CDT Ancillary Procedure Department of Ophthalmology in [address] [address] Madison Caicedo M.D. [address] [place] [phone] 05/26/2023 9:00 AM CDT Ancillary Procedure Department of Ophthalmology in [address] [address] Madison Caicedo M.D. [address] [place] [phone] 05/26/2023 9:15 AM CDT Office Visit Department of Ophthalmology in [place], [place] [address] [place] [address] Madison Caicedo M.D. [address] [place] [address] 05/26/2023 1:20 PM CDT Appointment Outpatient Procedure Center in [place], [place] [address] [place] [address] Madison Caicedo M.D. [address] [place] [address] documented as of this encounter Results * Intravitreal Injection, Pharmacologic Agent - OD - Right Eye (07/13/2022 2:36 PM CDT) Narrative Teodoro Pedroza M.D. - 07/13/2022 3:34 PM CDT Pre-Procedure [...] 25 mg/mL ??Route: intravitreal, Site: Right Eye ??[facility]: 71684-757-40 Balanced salt solution irrigation to injected eye [...] return schedule given if requested. Lot # [id number] Exp. 08/26/22 Teodoro Pedroza M.D. [facility] PROCEDU RES documented in this encounter Visit Diagnoses Not on filedocumented in this encounter Care Teams Web Press Jogger Relationship Specialty Start Date End Date Elsewhere, Pcp PCP - General Family Medicine 02/17/17 documented as of this encounter
--- OUTSIDE RECORDS SUMMARY | 2023-03-23 07:28 | XMS_ITS | Encounter Summary ---
Author Name Unknown Organization [facility] Address [address] [place] [address] Care Team Providers Care Teasel Setter Name Role Phone Elsewhere, Pcp Primary Care Provider Unavailabl e Reason for Visit * Outpatient (Routine) - Authorized Specialty Diagnoses / Procedures Referred By Contac t Referred To Contact Ophthalmology Diagnoses . Procedures OPH TEST VISUAL ACUITY CHECK [facility] Oph Shaila [address] [place] [address] Referral ID Status Reason Start Date Expiration Date V isits Requested Visits Authorized [id number] Authorized 06/08/2022 06/08/2023 4 4 Encounter Details Date Type Department Care Team (Latest Contact Info) Description 06/08/2022 10:30 AM CDT Ancillary Procedure Department of Ophthalmology in [place], [place] [address] [place] [phone] Madison Caicedo M.D. [address] [place] [phone] Diabetes Mellitus Type 2 With Mild Nonproliferative [...] (Latest Contact Info) Description 04/18/2023 1:10 PM HEMATOLOGY NURSE EDUCATOR Ancillary Procedure Department of Ophthalmology in [address] [address] 04/18/2023 1:30 PM HEMATOLOGY NURSE EDUCATOR Appointment Outpatient Procedure Center in [address] [address] Madison Caicedo M.D. [address] [place] [phone] Discharge Disposition: Home or Self Care 05/23/2023 9:45 AM CDT Clinical Communication Virtual Review in [address] [address] 05/26/2023 8:30 AM CDT Ancillary Procedure Department of Ophthalmology in [address] [address] Madison Caicedo M.D. [address] [place] [phone] 05/26/2023 9:00 AM CDT Ancillary Procedure Department of Ophthalmology in [address] [address] Madison Caicedo M.D. [address] [place] [phone] 05/26/2023 9:15 AM CDT Office Visit Department of Ophthalmology in [address] [address] Madison Caicedo M.D. [address] [place] [phone] 05/26/2023 1:20 PM CDT Appointment Outpatient Procedure Center in [place], [place] [address] [place] [address] Madison Caicedo M.D. [address] [place] [address] documented as of this encounter Procedures Procedure [...] clinical note from 06/10/2022 ??for interpretation. Madison Caicedo MD Madison Caicedo M.D. 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
--- OUTSIDE RECORDS SUMMARY | 2023-03-23 07:28 | XMS_ITS | Encounter Summary ---
Author Name Unknown Organization [facility] Address [address] [place] [address] Care Team Providers Care Plant Physiologist Name Role Phone Elsewhere, Pcp Primary Care Provider Unavailabl e Encounter Details Date Type Department Care Team (Late st Contact Info) Description 06/08/2022 Ancillary Procedure Department of Ophthalmology Social History [...] (Latest Contact Info) Description 04/18/2023 1:[address] DRILL OPERATOR Ancillary Procedure Department of Ophthalmology in [place], [place] [address] [place] [phone] 04/18/2023 1:[address] DRILL OPERATOR Appointment Outpatient Procedure Center in [place], [place] [address] [place] [phone] Madison Caicedo M.D. [address] [place] [phone] Discharge Disposition: Home or Self Care 05/23/2023 9:45 AM CDT Clinical Communication Virtual Review in [place], [place] [address] [place] [address] 05/26/2023 8:30 AM CDT Ancillary Procedure Department of Ophthalmology in [place], [place] [address] [place] [phone] Madison Caicedo M.D. [address] [place] [phone] 05/26/2023 9:00 AM CDT Ancillary Procedure Department of Ophthalmology in [address] [address] Madison Caicedo M.D. [address] [place] [phone] 05/26/2023 9:15 AM CDT Office Visit Department of Ophthalmology in [address] [address] Madison Caicedo M.D. [address] [place] [phone] 05/26/2023 1:20 PM CDT Appointment Outpatient Procedure Center in [address] [address] Madison Caicedo M.D. [address] [place] [phone] documented as of this encounter Procedures Procedure Name Priority Date/Time Associated Diagnosis Comments OPHTHALMOLOGY IMAGE EXAM Routine 06/08/2022 12:00 AM CDT documented in this encounter Results * Eyes Spectralis OCT-Ophthalmology Image Exam (06/08/2022 12:00 AM CDT) Narrative [facility] - 06/08/2022 9:50 AM CDT This order has been created and auto-finalized to support the import of images acquired without order. The clinical documentation to support these images can be found on the encounter that produced images. Provider Not In System IMG NON RAD IMAGI NG PROCEDURES [facility] NA documented in this encounter Visit Diagnoses Not on filedocumented in this encounter Care Teams Plant Physiologist Relationship Specialty Start Date End Date Elsewhere, Pcp PCP - General Family Medicine 02/17/17 documented as of this encounter
--- OUTSIDE RECORDS SUMMARY | 2023-03-23 07:28 | XMS_ITS | Encounter Summary ---
Author Name Unknown Organization [facility] Address [address] [place] [address] Care Team Providers Care Atv Mechanic Name Role Phone Elsewhere, Pcp Primary Care Provider Unavailabl e Encounter Details Date Type Department Care Team (Latest Contact Info) Description 06/10/2022 Orders Only Department of Ophthalmology in [place], [place] [address] [place] [address] Tamar Younger C.O.A. [address] [place] [address] Diabetes Mellitus Due To Underlying Condition With [...] (Latest Contact Info) Description 04/18/2023 1:10 PM CLINICAL MARKETING MANAGER Ancillary Procedure Department of Ophthalmology in [place], [place] [address] [place] [address] 04/18/2023 1:30 PM CLINICAL MARKETING MANAGER Appointment Outpatient Procedure Center in [place], [place] [address] [place] [phone] Madison Caicedo M.D. [address] [place] [phone] Discharge Disposition: Home or Self Care 05/23/2023 9:45 AM CDT Clinical Communication Virtual Review in [place], [place] [address] [place] [address] 05/26/2023 8:30 AM CDT Ancillary Procedure Department of Ophthalmology in [place], [place] [address] [place] [phone] Madison Caicedo M.D. [address] [place] [phone] 05/26/2023 9:00 AM CDT Ancillary Procedure Department of Ophthalmology in [place], [place] [address] [place] [phone] Madison Caicedo M.D. [address] [place] [phone] 05/26/2023 9:15 AM CDT Office Visit Department of Ophthalmology in [address] [address] Madison Caicedo M.D. [address] [place] [phone] 05/26/2023 1:20 PM CDT Appointment Outpatient Procedure Center in [place], [place] [address] [place] [phone] Madison Caicedo M.D. 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
--- OUTSIDE RECORDS SUMMARY | 2023-03-23 07:28 | XMS_ITS | Encounter Summary ---
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 [address] [place] [address] [facility] Referral ID Status Reason Start Date Expiration Date Visits Re quested Visits Authorized [id number] Closed 06/02/2022 06/02/2023 1 1 Encounter Details Date Type Department Care Team (Latest Contact Info) Description 06/10/2022 3:12 PM CDT - 06/10/2022 3:57 PM CDT Hospital Encounter Outpatient Procedure Center in [place], [place] [address] [place] [address] Madison Caicedo M.D. [address] [place] [address] Diabetes Mellitus Type 2 With Mild Nonproliferative [...] (Latest Contact Info) Description 04/18/2023 1:10 PM POKER DEALER Ancillary Procedure Department of Ophthalmology in [place], [place] [address] [place] [phone] 04/18/2023 1:30 PM POKER DEALER Appointment Outpatient Procedure Center in [address] [address] Madison Caicedo M.D. [address] [place] [phone] Discharge Disposition: Home or Self Care 05/23/2023 9:45 AM CDT Clinical Communication Virtual Review in [place], [place] 200 [place] [address] 05/26/2023 8:30 AM CDT Ancillary Procedure Department of Ophthalmology in [address] [address] Madison Caicedo M.D. [address] [place] [phone] 05/26/2023 9:00 AM CDT Ancillary Procedure Department of Ophthalmology in [address] [address] Madison Caicedo M.D. [address] [place] [phone] 05/26/2023 9:15 AM CDT Office Visit Department of Ophthalmology in [address] [address] Madison Caicedo M.D. [address] [place] [phone] 05/26/2023 1:20 PM CDT Appointment Outpatient Procedure Center in [address] [address] Madison Caicedo M.D. 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 LOT: [id number] EXP: 07/15/2022 Teodoro Pedroza M.D. OPHTH CLINIC PROCEDU RES [...] For 365 days Given 03/15/2023 1:47 PM POKER DEALER 30 mL Given 02/15/2023 2:30 PM POKER DEALER 30 mL Given 01/18/2023 2:55 PM POKER DEALER 30 mL carboxymethylcellulose 1 % ophthalmic solution 1 drop (THERATEARS) 1 drop, right eye, As needed, dry eyes, DIRECTED OPHTHALMIC IN OR, Starting on Itzel 06/10/22 at 0918, For 365 days Given 03/15/2023 1:48 PM POKER DEALER 1 drop Given 02/15/2023 2:30 PM POKER DEALER 1 drop Given 01/18/2023 2:55 PM POKER DEALER 1 drop povidone-iodine 5 % ophthalmic solution 1 drop (BETADINE) 1 drop, right eye, As needed, irrigation, DIRECTED OPHTHALMIC IN OR, Starting on Tue06/10/22 at 0918, For 365 days, Irrigate ocular and periocular region and leave for 2 mins; then flush with sterile saline solution. Given 03/15/2023 1:48 PM POKER DEALER 1 drop Given 02/15/2023 2:30 PM POKER DEALER 1 drop Given 01/18/2023 2:55 PM POKER DEALER 1 drop proparacaine 0.5 % ophthalmic solution 1 drop (ALCAINE) 1 drop, right eye, As needed, DIRECTED OPHTHALMIC IN OR, Starting on Itzel 06/10/22 at 0918, For 365 days Given 03/15/2023 1:48 PM POKER DEALER 1 drop Given 02/15/2023 2:30 PM POKER DEALER 1 drop Given 01/18/2023 2:55 PM POKER DEALER 1 drop tetracaine (PF) 0.5 % ophthalmic solution 1 drop (ALTACAINE) 1 drop, right eye, As needed, DIRECTED OPHTHALMIC IN OR, Starting on Itzel 06/10/22 at 0918, For 365 days Given 03/15/2023 1:47 PM POKER DEALER 1 drop Given 02/15/2023 2:30 PM POKER DEALER 1 drop Given 01/18/2023 2:55 PM POKER DEALER 1 drop Inactive Administered Medications - up to 3 most recent administrations Medication Order MAR Action Action Date Dose Rate Site bevacizumab intraocular injection 1.25 mg (AVASTIN) 1.25 mg, intravitreal, As needed, DIRECTED OPHTHALMIC IN OR, Starting on Itzel 06/10/22 at 0918, Inject into right eye. Given 06/10/2022 4:19 PM CDT 1.25 mg Right Eye documented in this encounter Care Teams Business Consultant Relationship Specialty Start Date End Date Elsewhere, Pcp PCP - General Family Medicine 02/17/17 documented as of this encounter
--- OUTSIDE RECORDS SUMMARY | 2023-03-23 07:28 | XMS_ITS | Encounter Summary ---
Author Name Unknown Organization [facility] Address [address] [place] [address] Care Team Providers Care Plastic Joint Maker Name Role Phone Elsewhere, Pcp Primary Care Provider Unavailabl e Encounter Details Date Type Department Care Team (Latest Contact Info) Description 07/13/2022 2:36 PM CDT - 07/13/2022 11:59 PM CDT Hospital Encounter Outpatient Procedure Center in [place], [place] [address] [place] [address] Teodoro Pedroza M.D. [address] [place] [address] Discharge Disposition: Home or Self [...] (Latest Contact Info) Description 04/18/2023 1:10 PM PHOTOGRAPHER LITHOGRAPHIC Ancillary Procedure Department of Ophthalmology in [address] [address] 04/18/2023 1:30 PM PHOTOGRAPHER LITHOGRAPHIC Appointment Outpatient Procedure Center in [address] [address] Madison Caicedo M.D. [address] [place] [phone] Discharge Disposition: Home or Self Care 05/23/2023 9:45 AM CDT Clinical Communication Virtual Review in [place], [place] 200 [place] [address] 05/26/2023 8:30 AM CDT Ancillary Procedure Department of Ophthalmology in [address] [address] Madison Caicedo M.D. [address] [place] [phone] 05/26/2023 9:00 AM CDT Ancillary Procedure Department of Ophthalmology in [address] [address] Madison Caicedo M.D. [address] [place] [phone] 05/26/2023 9:15 AM CDT Office Visit Department of Ophthalmology in [place], [place] [address] [place] [address] Madison Caicedo M.D. [address] [place] [address] 05/26/2023 1:20 PM CDT Appointment Outpatient Procedure Center in [place], [place] [address] [place] [address] Madison Caicedo M.D. [address] [place] [address] documented as of this encounter Procedures Procedure [...] mg/mL ??Route: intravitreal, Site: Right Eye ??[facility]: 91770-191-80 Balanced salt solution irrigation to injected eye [...] return schedule given if requested. Lot # [id number] Exp. 08/26/22 Teodoro Pedroza M.D. [facility] PROCEDU RES documented in this encounter Visit Diagnoses Not on filedocumented in this encounter Care Teams Plastic Joint Maker Relationship Specialty Start Date End Date Elsewhere, Pcp PCP - General Family Medicine 02/17/17 documented as of this encounter
--- OUTSIDE RECORDS SUMMARY | 2023-03-23 07:28 | XMS_ITS | Encounter Summary ---
Author Name Unknown Organization [facility] Address [address] [place] [address] Care Team Providers Care Furniture Manager Name Role Phone Elsewhere, Pcp Primary Care Provider Unavailabl e Encounter Details Date Type Department Care Team (Latest Contact Info) Description 07/07/2022 Orders Only Department of Ophthalmology in [place], [place] [address] [place] [address] Eliane [place] [address] [place] [address] Diabetes Mellitus Due To Underlying Condition With [...] (Latest Contact Info) Description 04/18/2023 1:10 PM UNIX MANAGER Ancillary Procedure Department of Ophthalmology in [place], [place] [address] [place] [address] 04/18/2023 1:30 PM UNIX MANAGER Appointment Outpatient Procedure Center in [place], [place] [address] [place] [phone] Madison Caicedo M.D. [address] [place] [phone] Discharge Disposition: Home or Self Care 05/23/2023 9:45 AM CDT Clinical Communication Virtual Review in [place], [place] 200 [place] [address] 05/26/2023 8:30 AM CDT Ancillary Procedure Department of Ophthalmology in [place], [place] [address] [place] [phone] Madison Caicedo M.D. [address] [place] [phone] 05/26/2023 9:00 AM CDT Ancillary Procedure Department of Ophthalmology in [place], [place] [address] [place] [phone] Madison Caicedo M.D. [address] [place] [phone] 05/26/2023 9:15 AM CDT Office Visit Department of Ophthalmology in [address] [address] Madison Caicedo M.D. [address] [place] [phone] 05/26/2023 1:20 PM CDT Appointment Outpatient Procedure Center in [place], [place] [address] [place] [phone] Madison Caicedo M.D. 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
--- OUTSIDE RECORDS SUMMARY | 2023-03-23 07:29 | XMS_ITS | Encounter Summary ---
Author Name Unknown Organization [facility] Address [address] [place] [address] Care Team Providers Care Color Technician Name Role Phone Elsewhere, Pcp Primary Care Provider Unavailabl e Encounter Details Date Type Department Care Team (Late st Contact Info) Description 05/13/2022 Ancillary Procedure Department of Ophthalmology Social History [...] (Latest Contact Info) Description 04/18/2023 1:10 PM RESIDENTIAL LEASING MANAGER Ancillary Procedure Department of Ophthalmology in [place], [place] [address] [place] [phone] 04/18/2023 1:30 PM RESIDENTIAL LEASING MANAGER Appointment Outpatient Procedure Center in [place], [place] [address] [place] [phone] Madison Caicedo M.D. [address] [place] [phone] Discharge Disposition: Home or Self Care 05/23/2023 9:45 AM CDT Clinical Communication Virtual Review in [place], [place] 200 [place] [address] 05/26/2023 8:30 AM CDT Ancillary Procedure Department of Ophthalmology in [place], [place] [address] [place] [phone] Madison Caicedo M.D. [address] [place] [phone] 05/26/2023 9:00 AM CDT Ancillary Procedure Department of Ophthalmology in [address] [address] Madison Caicedo M.D. [address] [place] [phone] 05/26/2023 9:15 AM CDT Office Visit Department of Ophthalmology in [address] [address] Madison Caicedo M.D. [address] [place] [phone] 05/26/2023 1:20 PM CDT Appointment Outpatient Procedure Center in [address] [address] Madison Caicedo M.D. [address] [place] [phone] documented as of this encounter Procedures Procedure Name Priority Date/Time Associated Diagnosis Comments OPHTHALMOLOGY IMAGE EXAM Routine 05/13/2022 12:00 AM CDT documented in this encounter Results * Eyes Spectralis OCT-Ophthalmology Image Exam (05/13/2022 12:00 AM CDT) Narrative IIMS - 05/13/2022 2:25 PM CDT This order has been created and auto-finalized to support the import of images acquired without order. The clinical documentation to support these images can be found on the encounter that produced images. Provider Not In System IMG NON RAD IMAGI NG PROCEDURES IIMS NA documented in this encounter Visit Diagnoses Not on filedocumented in this encounter Care Teams Color Technician Relationship Specialty Start Date End Date Elsewhere, Pcp PCP - General Family Medicine 02/17/17 documented as of this encounter
--- OUTSIDE RECORDS SUMMARY | 2023-03-23 07:29 | XMS_ITS | Encounter Summary ---
Author Name Unknown Organization [facility] Address [address] [place] [address] Care Team Providers Care Line Installer Repairer Name Role Phone Elsewhere, Pcp Primary Care Provider Unavailabl e Encounter Details Date Type Department Care Team (Late st Contact Info) Description 05/07/2014 Historical Ophthalmology RST OPH Benitez Yuan M.D. [address] [place] [address] Social History Tobacco Use Types Packs/Day Years Used Date Smoking Tobacco: Never Assessed Sex and Gender Information Value Date Recorded Sex Assigned at Male 12/14/2022 12:21 PM CDT Gender Identity Male 12/14/2022 12:21 PM CDT Sexual Orientation Straight 12/14/2022 12 :21 PM CDT documented as of this encounter Progress Notes * Benitez Yuan M.D. - 05/07/2014 1:18 PM CDT Eye Subsequent Visit HISTORY OF PRESENT ILLNESS Patient returns for photos IMPRESSION / REPORT / PLAN The following tests have been completed and need interpretation. OCT macula CDM Reports - EYESV Id: [id number] Status: Fnl documented in this encounter Plan of Treatment Upcoming Encounters Date Type Department Care Team (Latest Contact Info) Description 04/18/2023 1:10 PM REPAIRER GENERAL Ancillary Procedure Department of Ophthalmology in [place], [place] [address] [place] [phone] 04/18/2023 1:30 PM REPAIRER GENERAL Appointment Outpatient Procedure Center in [place], [place] [address] [place] [phone] Madison Caicedo M.D. [address] [place] [phone] Discharge Disposition: Home or Self Care 05/23/2023 9:45 AM CDT Clinical Communication Virtual Review in [place], [place] 200 [place] [address] 05/26/2023 8:30 AM CDT Ancillary Procedure Department of Ophthalmology in [place], [place] [address] [place] [phone] Madison Caicedo M.D. [address] [place] [phone] 05/26/2023 9:00 AM CDT Ancillary Procedure Department of Ophthalmology in [place], [place] [address] [place] [phone] Madison Caicedo M.D. [address] [place] [phone] 05/26/2023 9:15 AM CDT Office Visit Department of Ophthalmology in [address] [address] Madison Caicedo M.D. [address] [place] [phone] 05/26/2023 1:20 PM CDT Appointment Outpatient Procedure Center in [place], [place] [address] [place] [phone] Madison Caicedo M.D. [address] [place] [phone] documented as of this encounter Visit Diagnoses Not on filedocumented in this encounter Care Teams Line Installer Repairer Relationship Specialty Start Date End Date Elsewhere, Pcp PCP - General Family Medicine 02/17/17 documented as of this encounter
--- OUTSIDE RECORDS SUMMARY | 2023-03-23 07:29 | XMS_ITS | Encounter Summary ---
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 [address] [place] [address] [facility] Referral ID Status Reason Start Date Expiration Date Visits Re quested Visits Authorized [id number] Closed 05/13/2022 05/13/2023 1 1 Scheduling Instructions Needed within 4-6 weeks Encounter Details Date Type Department Care Team (Latest Contact Info) Description 05/13/2022 Orders Only Department of Ophthalmology in [place], [place] [address] [place] [address] Tone Stephenson, C.O.AKee [address] [place] [address] Diabetes Mellitus Type 2 With [...] DEVELOPER Ancillary Procedure Department of Ophthalmology in [address] [address] 04/18/2023 1:[address] DEVELOPER Appointment Outpatient Procedure Center in [address] [address] Madison Caicedo M.D. [address] [place] [phone] Discharge Disposition: Home or Self Care 05/23/2023 9:45 AM CDT Clinical Communication Virtual Review in [address] [address] 05/26/2023 8:30 AM CDT Ancillary Procedure Department of Ophthalmology in [address] [address] Madison Caicedo M.D. [address] [place] [phone] 05/26/2023 9:00 AM CDT Ancillary Procedure Department of Ophthalmology in [address] [address] Madison Caicedo M.D. [address] [place] [phone] 05/26/2023 9:15 AM CDT Office Visit Department of Ophthalmology in [address] [phone] Madison Caicedo M.D. [address] [place] [address] 05/26/2023 1:20 PM CDT Appointment Outpatient Procedure Center in [place], [place] [address] [place] [address] Madison Caicedo M.D. 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
--- OUTSIDE RECORDS SUMMARY | 2023-03-23 07:29 | XMS_ITS | Encounter Summary ---
Author Name Unknown Organization [facility] Address [address] [place] [address] Care Team Providers Care Centrifugal Chiller Technician Name Role Phone Elsewhere, Pcp Primary Care Provider Unavailabl e Encounter Details Date Type Department Care Team (Late st Contact Info) Description 07/20/2016 Historical Ophthalmology RST OPH Benitez Yuan M.D. [address] [place] [address] Social History Tobacco Use Types Packs/Day Years Used Date Smoking Tobacco: Never Assessed Sex and Gender Information Value Date Recorded Sex Assigned at Male 12/14/2022 12:21 PM CDT Gender Identity Male 12/14/2022 12:21 PM CDT Sexual Orientation Straight 12/14/2022 12 :21 PM CDT documented as of this encounter Progress Notes * Benitez Yuan M.D. - 07/20/2016 10:36 AM CDT Eye General CHIEF COMPLAINT Follow up Non-proliferative diabetic retinopathy BOTH eyes HISTORY OF PRESENT ILLNESS Blurred vision; left eye; x many years; constantly; no changes since last visit. blood sugar 146 A1c 6.8 02/12 IMPRESSION / REPORT / PLAN OCT 07/14 RIGHT: stable LEFT: slight decrease in foveal IRF, vitreofoveal adhesion OCT 06/14 RIGHT: stable LEFT: minimal decrease in foveal IRF OCT 03/16 RIGHT: minimal eccentric IRF LEFT: increased foveal IRF FA 03/16 RIGHT: periph nonperfusion OU, irreg RAYA, leaking MAs, irreg RAYA LEFT: irreg RAYA, ++MA leakage, no NV OCT 08/12 RIGHT: scant IRF superotemporal to fovea (new since 05/12), no SRF, normal foveal contour LEFT: atrophic foveal IRF w/ mild traction, stable #1 Non-proliferative diabetic retinopathy BOTH eyes RIGHT: minimal edema LEFT: hx focal laser 12/2005, -tight glycemic (HbA1c has been controlled, reports sugars run in 130s), hypertensive, and cholesterol control d/w pt #2 diabetic macular edema LEFT eye #3 Cataracts BOTH eyes -non visually-significant #4 refractive error IMPRESSION/PLAN 07/20/2016: Slight decrease in IRF 6 weeks s/p Ozurdex left eye. IOP wnl. 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 [address] [place] [phone] Discharge Disposition: Home or Self Care 05/23/2023 9:45 AM CDT Clinical Communication Virtual Review in [place], [place] 200 [place] [address] 05/26/2023 8:30 AM CDT Ancillary Procedure Department of Ophthalmology in [address] [phone] Madison Caicedo M.D. [address] [place] [phone] 05/26/2023 9:00 AM CDT Ancillary Procedure Department of Ophthalmology in [place], [place] [address] [place] [phone] Madison Caicedo M.D. [address] [place] [phone] 05/26/2023 9:15 AM CDT Office Visit Department of Ophthalmology in [place], [place] [address] [place] [phone] Madison Caicedo M.D. [address] [place] [phone] 05/26/2023 1:20 PM CDT Appointment Outpatient Procedure Center in [place], [place] [address] [place] [phone] Madison Caicedo M.D. [address] [place] [phone] documented as of this encounter Visit Diagnoses Not on filedocumented in this encounter Care Teams Centrifugal Chiller Technician Relationship Specialty Start Date End Date Elsewhere, Pcp PCP - General Family Medicine 02/17/17 documented as of this encounter
--- OUTSIDE RECORDS SUMMARY | 2023-03-23 07:29 | XMS_ITS | Encounter Summary ---
Author Name Unknown Organization [facility] Address [address] [place] [address] Care Team Providers Care Warehouse Record Clerk Name Role Phone Elsewhere, Pcp Primary Care Provider Unavailabl e Encounter Details Date Type Department Care Team (Late st Contact Info) Description 06/07/2016 Historical Ophthalmology RST OPH Benitez Yuan M.D. [address] [place] [address] Social History Tobacco Use Types Packs/Day Years Used Date Smoking Tobacco: Never Assessed Sex and Gender Information Value Date Recorded Sex Assigned at Male 12/14/2022 12:21 PM CDT Gender Identity Male 12/14/2022 12:21 PM CDT Sexual Orientation Straight 12/14/2022 12 :21 PM CDT documented as of this encounter Progress Notes * Benitez Yuan M.D. - 06/07/2016 9:39 AM CDT Eye General CHIEF COMPLAINT Non-proliferative diabetic retinopathy BOTH eyes HISTORY OF PRESENT ILLNESS Blurred vision; left eye; x several years; improving since first noted; symptoms are minimal. 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 [address] [place] [phone] Discharge Disposition: Home or Self Care 05/23/2023 9:45 AM CDT Clinical Communication Virtual Review in [place], [place] 200 [place] [address] 05/26/2023 8:30 AM CDT Ancillary Procedure Department of Ophthalmology in [place], [place] [address] [place] [phone] [place] Ca[place]o M.D. [address] [place] [phone] 05/26/2023 9:00 AM CDT Ancillary Procedure Department of Ophthalmology in [place], [place] [address] [place] [phone] [place] Ca[place] M.D. [address] [place] [phone] 05/26/2023 9:15 AM CDT Office Visit Department of Ophthalmology in [place], [place] [address] [place] [phone] [place] Ca[place] M.D. [address] [place] [phone] 05/26/2023 1:20 PM CDT Appointment Outpatient Procedure Center in [place], [place] [address] [place] [phone] [place] Ca[place] M.D. [address] [place] [phone] documented as of this encounter Visit Diagnoses Not on filedocumented in this encounter Care Teams Warehouse Record Clerk Relationship Specialty Start Date End Date Elsewhere, Pcp PCP - General Family Medicine 02/17/17 documented as of this encounter
--- OUTSIDE RECORDS SUMMARY | 2023-03-23 07:29 | XMS_ITS | Encounter Summary ---
Author Name Unknown Organization [facility] Address [address] [place] [address] Care Team Providers Care Wellness Program Coordinator Name Role Phone Elsewhere, Pcp Primary Care Provider Unavailabl e Encounter Details Date Type Department Care Team (Late st Contact Info) Description 01/18/2006 Historical Ophthalmology RST OPH Deborah Hernández, C.O.A. [address] [place] [address] Social History Tobacco Use Types Packs/Day Years Used Date Smoking Tobacco: Never Assessed Sex and Gender Information Value Date Recorded Sex Assigned at Male 12/14/2022 12:21 PM CDT Gender Identity Male 12/14/2022 12:21 PM CDT Sexual Orientation Straight 12/14/2022 12 :21 PM CDT documented as of this encounter Progress Notes * Deborah Hernández, C.O.A. - 01/18/2006 12:00 AM CST Eye Subsequent Visit HISTORY OF PRESENT ILLNESS Proparacaine left eye. Laser left eye. CDM Reports - EYESV Id: [id number] Status: Fnl documented in this encounter Plan of Treatment Upcoming Encounters Date Type Department Care Team (Latest Contact Info) Description 04/18/2023 1:10 PM SLITTER AND CUTTER OPERATOR Ancillary Procedure Department of Ophthalmology in [place], [place] [address] [place] [phone] 04/18/2023 1:30 PM SLITTER AND CUTTER OPERATOR Appointment Outpatient Procedure Center in [place], [place] [address] [place] [phone] [place] Caicedo M.D. [address] [place] [phone] Discharge Disposition: Home or Self Care 05/23/2023 9:45 AM CDT Clinical Communication Virtual Review in [place], [place] 200 [place] [address] 05/26/2023 8:30 AM CDT Ancillary Procedure Department of Ophthalmology in [place], [place] [address] [place] [phone] [place] Caicedo M.D. [address] [place] [phone] 05/26/2023 9:00 AM CDT Ancillary Procedure Department of Ophthalmology in [place], [place] [address] [place] [phone] [place] Caicedo M.D. [address] [place] [phone] 05/26/2023 9:15 AM CDT Office Visit Department of Ophthalmology in [address] [phone] [place] Caicedo M.D. [address] [place] [phone] 05/26/2023 1:20 PM CDT Appointment Outpatient Procedure Center in [address] [phone] [place] Caicedo M.D. [address] [place] [phone] documented as of this encounter Visit Diagnoses Not on filedocumented in this encounter Care Teams Wellness Program Coordinator Relationship Specialty Start Date End Date Elsewhere, Pcp PCP - General Family Medicine 02/17/17 documented as of this encounter
--- OUTSIDE RECORDS SUMMARY | 2023-03-23 07:29 | XMS_ITS | Encounter Summary ---
Author Name Unknown Organization [facility] Address [address] [place] [address] Care Team Providers Care Appeals Writer Name Role Phone Elsewhere, Pcp Primary Care Provider Unavailabl e Encounter Details Date Type Department Care Team (Latest Contact Info) Description 05/28/2022 Clinical Communication Department of Ophthalmology in [place], [place] [address] [place] [address] [place] Caicedo M.D. [address] [place] [address] Social History Tobacco Use Types Packs/Day Years [...] (Latest Contact Info) Description 04/18/2023 1:10 PM COLLEGE OR UNIVERSITY REGISTRAR Ancillary Procedure Department of Ophthalmology in [place], [place] [address] [place] [address] 04/18/2023 1:30 PM COLLEGE OR UNIVERSITY REGISTRAR Appointment Outpatient Procedure Center in [place], [place] [address] [place] [phone] [place] Caiced[place] M.D. [address] [place] [phone] Discharge Disposition: Home or Self Care 05/23/2023 9:45 AM CDT Clinical Communication Virtual Review in [place], [place] 200 [place] [address] 05/26/2023 8:30 AM CDT Ancillary Procedure Department of Ophthalmology in [place], [place] [address] [place] [phone] [place] Caiced[place] M.D. [address] [place] [phone] 05/26/2023 9:00 AM CDT Ancillary Procedure Department of Ophthalmology in [place], [place] [address] [place] [phone] [place] Caiced[place] M.D. [address] [place] [phone] 05/26/2023 9:15 AM CDT Office Visit Department of Ophthalmology in [place], [place] [address] [place] [phone] [place] Ca[place] M.D. [address] [place] [phone] 05/26/2023 1:20 PM CDT Appointment Outpatient Procedure Center in [place], [place] [address] [place] [phone] [place] Ca[place] M.D. [address] [place] [phone] documented as of this encounter Visit Diagnoses Not on filedocumented in this encounter Care Teams Appeals Writer Relationship Specialty Start Date End Date Elsewhere, Pcp PCP - General Family Medicine 02/17/17 documented as of this encounter
--- OUTSIDE RECORDS SUMMARY | 2023-03-23 07:29 | XMS_ITS | Encounter Summary ---
Author Name Unknown Organization [facility] Address [address] [place] [address] Care Team Providers Care Bus And Sys Integration Senior Manager Name Role Phone Elsewhere, Pcp Primary Care Provider Unavailabl e Encounter Details Date Type Department Care Team (Late st Contact Info) Description 08/06/2014 Historical Ophthalmology RST OPH Benitez Yuan M.D. [address] [place] [address] Social History Tobacco Use Types Packs/Day Years Used Date Smoking Tobacco: Never Assessed Sex and Gender Information Value Date Recorded Sex Assigned at Male 12/14/2022 12:21 PM CDT Gender Identity Male 12/14/2022 12:21 PM CDT Sexual Orientation Straight 12/14/2022 12 :21 PM CDT documented as of this encounter Progress Notes * Benitez Yuan M.D. - 08/06/2014 7:56 AM CDT Eye General CHIEF COMPLAINT Diabetic eye exam HISTORY OF PRESENT ILLNESS Patient has come for Diabetic eye exam with photos. Diabetic x 7 yrs, controls with oral meds, last HemA1c was 7.1 on 02/19/14, Blood sugar this am [id number]. Denies blurred vision, light flashes, floaters, ocular pain, diplopia, dry eye, excessive tearing and concerns with central and peripheral vision, IMPRESSION / REPORT / PLAN OCT 08/12 RIGHT: scant IRF superotemporal to fovea (new since 05/12), no SRF, normal foveal contour LEFT: atrophic foveal IRF w/ mild traction, stable #1 Non-proliferative diabetic retinopathy BOTH eyes RIGHT: LEFT: hx focal laser 12/2005, -tight glycemic (last A1C in 02/10 was 7.0, reports sugars run in 130s), hypertensive, and cholesterol control d/w pt #2 diabetic macular edema LEFT eye #3 Cataracts BOTH eyes -non visually-significant #4 refractive error Plan 08/06/14: Stable compared to exam in April 2014 No significant improvement in vision with refraction FU 6 mon w/ FA transit LEFT and OCT (hold inj slot) DIAGNOSIS #1 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 [address] [place] [phone] Discharge Disposition: Home or Self Care 05/23/2023 9:45 AM CDT Clinical Communication Virtual Review in [address] [address] 05/26/2023 8:30 AM CDT Ancillary Procedure Department of Ophthalmology in [address] [phone] [place] Caiced[place] M.D. [address] [place] [phone] 05/26/2023 9:00 AM CDT Ancillary Procedure Department of Ophthalmology in [address] [phone] [place] Caiced[place] M.D. [address] [place] [phone] 05/26/2023 9:15 AM CDT Office Visit Department of Ophthalmology in [place], [place] [address] [place] [address] [place] Caiced[place] M.D. [address] [place] [phone] 05/26/2023 1:20 PM CDT Appointment Outpatient Procedure Center in [place], [place] [address] [place] [phone] [place] M.D. [address] [place] [phone] documented as of this encounter Visit Diagnoses Not on filedocumented in this encounter Care Teams Bus And Sys Integration Senior Manager Relationship Specialty Start Date End Date Elsewhere, Pcp PCP - General Family Medicine 02/17/17 documented as of this encounter
--- OUTSIDE RECORDS SUMMARY | 2023-03-23 07:29 | XMS_ITS | Encounter Summary ---
Author Name Unknown Organization [facility] Address [address] [place] [address] Care Team Providers Care Train Examiner Name Role Phone Elsewhere, Pcp Primary Care Provider Unavailabl e Encounter Details Date Type Department Care Team (Latest Contact Info) Description 06/03/2022 Clinical Communication Department of Ophthalmology in [place], [place] [address] [place] [address] [place] Caiced[place] M.D. [address] [place] [address] Social History Tobacco Use Types Packs/Day Years [...] (Latest Contact Info) Description 04/18/2023 1:10 PM CARD PLACER Ancillary Procedure Department of Ophthalmology in [place], [place] [address] [place] [address] 04/18/2023 1:30 PM CARD PLACER Appointment Outpatient Procedure Center in [place], [place] [address] [place] [phone] [place] Caicedo M.D. [address] [place] [phone] Discharge Disposition: Home or Self Care 05/23/2023 9:45 AM CDT Clinical Communication Virtual Review in [place], [place] 200 [place] [address] 05/26/2023 8:30 AM CDT Ancillary Procedure Department of Ophthalmology in [place], [place] [address] [place] [phone] [place] Caiced[place] M.D. [address] [place] [phone] 05/26/2023 9:00 AM CDT Ancillary Procedure Department of Ophthalmology in [place], [place] [address] [place] [phone] [place] Caiced[place] M.D. [address] [place] [phone] 05/26/2023 9:15 AM CDT Office Visit Department of Ophthalmology in [place], [place] [address] [place] [phone] [place] Ca[place] M.D. [address] [place] [phone] 05/26/2023 1:20 PM CDT Appointment Outpatient Procedure Center in [place], [place] [address] [place] [phone] [place] Ca[place] M.D. [address] [place] [phone] documented as of this encounter Visit Diagnoses Not on filedocumented in this encounter Care Teams Train Examiner Relationship Specialty Start Date End Date Elsewhere, Pcp PCP - General Family Medicine 02/17/17 documented as of this encounter
--- OUTSIDE RECORDS SUMMARY | 2023-03-23 07:29 | XMS_ITS | Encounter Summary ---
Author Name Unknown Organization [facility] Address [address] [place] [address] Care Team Providers Care Power Electronics Research Engineer Name Role Phone Elsewhere, Pcp Primary Care Provider Unavailabl e Encounter Details Date Type Department Care Team (Latest Contact Info) Description 05/13/2022 2:20 PM CDT Ancillary Procedure Department of Ophthalmology in [place], [place] [address] [place] [address] Wendy Padilla O.D. [address] [place] [phone] Diabetes Mellitus Type 2 With Mild Nonproliferative [...] (Latest Contact Info) Description 04/18/2023 1:10 PM ORNAMENTAL BRONZE WORKER Ancillary Procedure Department of Ophthalmology in [place], [place] [address] [place] [phone] 04/18/2023 1:30 PM ORNAMENTAL BRONZE WORKER Appointment Outpatient Procedure Center in [place], [place] [address] [place] [phone] [place] Caicedo M.D. [address] [place] [phone] Discharge Disposition: Home or Self Care 05/23/2023 9:45 AM CDT Clinical Communication Virtual Review in [place], [place] 200 [place] [address] 05/26/2023 8:30 AM CDT Ancillary Procedure Department of Ophthalmology in [place], [place] [address] [place] [phone] [place] Caiced[place] M.D. [address] [place] [phone] 05/26/2023 9:00 AM CDT Ancillary Procedure Department of Ophthalmology in [place], [place] [address] [place] [phone] [place] Ca[place] M.D. [address] [place] [phone] 05/26/2023 9:15 AM CDT Office Visit Department of Ophthalmology in [address] [phone] [place] Ca[place] M.D. [address] [place] [phone] 05/26/2023 1:20 PM CDT Appointment Outpatient Procedure Center in [address] [phone] [place] Ca[place] M.D. 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 Left Eye OCT device used was Spectralis . 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
--- OUTSIDE RECORDS SUMMARY | 2023-03-23 07:29 | XMS_ITS | Encounter Summary ---
Author Name Unknown Organization [facility] Address [address] [place] [address] Care Team Providers Care Musical Instrument Maker Or Repairer Name Role Phone Elsewhere, Pcp Primary Care Provider Unavailabl e Encounter Details Date Type Department Care Team (Late st Contact Info) Description 09/08/2016 Historical Ophthalmology RST OPH Benitez Yuan M.D. [address] [place] [address] Social History Tobacco Use Types Packs/Day Years Used Date Smoking Tobacco: Never Assessed Sex and Gender Information Value Date Recorded Sex Assigned at Male 12/14/2022 12:21 PM CDT Gender Identity Male 12/14/2022 12:21 PM CDT Sexual Orientation Straight 12/14/2022 12 :21 PM CDT documented as of this encounter Progress Notes * Benitez Yuan M.D. - 09/08/2016 9:11 AM CDT Eye General CHIEF COMPLAINT follow up HISTORY OF PRESENT ILLNESS Blurred vision; left eye; x several years; occasionally; symptoms are stable. AJB: no changes in vision, no issues IMPRESSION / REPORT / PLAN letter to Dr Taco Kaye 09/13 OCT 09/13 RIGHT: relatively stable, heme ST to fovea with shadowing LEFT: skip foveal IRF, vitreofoveal adhesion OCT 07/14 RIGHT: stable LEFT: slight decrease [...] in 130s), hypertensive, and cholesterol control d/w pt) - Current A1c 6.8 08/14 #2 diabetic macular edema LEFT eye #3 Cataracts BOTH eyes -non visually-significant #4 refractive error IMPRESSION/PLAN 09/08/16: Skip IRF 13 weeks s/p Ozurdex left eye. 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 [address] [place] [address] Discharge Disposition: Home or Self Care 05/23/2023 9:45 AM CDT Clinical Communication Virtual Review in [place], [place] 200 [place] [address] 05/26/2023 8:30 AM CDT Ancillary Procedure Department of Ophthalmology in [place], [place] [address] [place] [phone] [place] Caiced[place] M.D. [address] [place] [phone] 05/26/2023 9:00 AM CDT Ancillary Procedure Department of Ophthalmology in [address] [phone] [place] Ca[place] M.D. [address] [place] [phone] 05/26/2023 9:15 AM CDT Office Visit Department of Ophthalmology in [address] [phone] [place] Ca[place] M.D. [address] [place] [phone] 05/26/2023 1:20 PM CDT Appointment Outpatient Procedure Center in [address] [phone] [place] Ca[place] M.D. [address] [place] [phone] documented as of this encounter Visit Diagnoses Not on filedocumented in this encounter Care Teams Musical Instrument Maker Or Repairer Relationship Specialty Start Date End Date Elsewhere, Pcp PCP - General Family Medicine 02/17/17 documented as of this encounter
--- OUTSIDE RECORDS SUMMARY | 2023-03-23 07:29 | XMS_ITS | Encounter Summary ---
Author Name Unknown Organization [facility] Address [address] [place] [address] Care Team Providers Care Dowel Sander Operator Name Role Phone Elsewhere, Pcp Primary Care Provider Unavailabl e Reason for Visit * Reason Comments Diabetic Eye Exam * Outpatient (Routine) - Closed Specialty Diagnoses / Procedures Referred By Araceli garza Referred To Contact Ophthalmology Wendy Padilla O.D. [address] [place] [address] [facility] Referral ID Status Reason Start Date Expiration Date Visits Re quested Visits Authorized [id number] Closed 02/15/2022 02/14/2025 1 1 Encounter Details Date Type Department Care Team (Latest Contact Info) Description 05/13/2022 2:30 PM CDT Office Visit Department of Ophthalmology in [place], [place] [address] [place] [phone] Wendy Padilla O.D. [address] [place] [phone] Diabetes Mellitus Type 2 With Mild Nonproliferative [...] as of this encounter Progress Notes * Wendy Padilla O.D. - 05/13/2022 2:30 PM CDT Karsten Gambinoifford Sandhya Here for diabetes mellitus FU Testin04/2022 OCT RE - central IRF increased, no subretinal fluid; LE - improved almost resolved IRF, no subretinal fluid OCT RE - stable IRF foveal , no subretinal fluid, 20/20 vision; LE - stable to slight increase central IRF, no subretinal fluid , stable VA HISTORY OF PRESENT ILLNESS -focal laser LE 2005 -Avastin injections 3, beginning 02/2016 LE only -Patient had left Ozurdex placed with no benefit -diabetes mellitus type 2 , dx 2005 -med changed to Jardiance and A1c has dropped to 9.0 IMPRESSION: #1 Non-proliferative diabetic retinopathy BOTH eyes - Current A1c 9.0 #2 diabetic macular edema RE with visual acuity drop from 20/20 to 20/30. LE no DME and normal foveal contour #3 Cataracts BOTH eyes -non visually-significant 04/2022 Plan: Refer to Dr. Mendez or fellow for RE DME consult within 4-6 weeks. With fluorescein angiography transit right on Optos & SD OCT. Hold injection slot. Will observe LEFT eye unless significant worsening. Cataracts also contributing to the blur. documented in this encounter Plan of Treatment Upcoming Encounters Date Type Department Care Team (Latest Contact Info) Description 04/18/2023 1:10 PM SAFETY INSTRUCTION POLICE OFFICER Ancillary Procedure Department of Ophthalmology in [place], [place] [address] [place] [address] 04/18/2023 1:30 PM SAFETY INSTRUCTION POLICE OFFICER Appointment Outpatient Procedure Center in [place], [place] [address] [place] [phone] Madison Caicedo M.D. [address] [place] [phone] Discharge Disposition: Home or Self Care 05/23/2023 9:45 AM CDT Clinical Communication Virtual Review in [place], [place] [address] [place] [address] 05/26/2023 8:30 AM CDT Ancillary Procedure Department of Ophthalmology in [place], [place] [address] [place] [phone] Madison Caicedo M.D. [address] [place] [phone] 05/26/2023 9:00 AM CDT Ancillary Procedure Department of Ophthalmology in [place], [place] [address] [place] [phone] Madison Caicedo M.D. [address] [place] [phone] 05/26/2023 9:15 AM CDT Office Visit Department of Ophthalmology in [address] [phone] Madison Caicedo M.D. [address] [place] [phone] 05/26/2023 1:20 PM CDT Appointment Outpatient Procedure Center in [address] [phone] Madison Caicedo M.D. 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
--- OUTSIDE RECORDS SUMMARY | 2023-03-23 07:29 | XMS_ITS | Encounter Summary ---
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 [address] [place] [address] [facility] Referral ID Status Reason Start Date Expiration Date Visits Re quested Visits Authorized [id number] Closed 06/02/2022 06/02/2023 1 1 Encounter Details Date Type Department Care Team (Latest Contact Info) Description 06/02/2022 Orders Only Department of Ophthalmology in [place], [place] [address] [place] [phone] Lopez Longoria, C.O.A. Diabetes Mellitus Type 2 With Mild [...] (Latest Contact Info) Description 04/18/2023 1:10 PM STATEMENT CLERKS SUPERVISOR Ancillary Procedure Department of Ophthalmology in [address] [phone] 04/18/2023 1:30 PM STATEMENT CLERKS SUPERVISOR Appointment Outpatient Procedure Center in [address] [address] Madison Caicedo M.D. [address] [place] [phone] Discharge Disposition: Home or Self Care 05/23/2023 9:45 AM CDT Clinical Communication Virtual Review in [address] [address] 05/26/2023 8:30 AM CDT Ancillary Procedure Department of Ophthalmology in [address] [address] Madison Caicedo M.D. [address] [place] [phone] 05/26/2023 9:00 AM CDT Ancillary Procedure Department of Ophthalmology in [address] [address] Madison Caicedo M.D. [address] [place] [phone] 05/26/2023 9:15 AM CDT Office Visit Department of Ophthalmology in [address] [phone] Madison Caicedo M.D. [address] [place] [address] 05/26/2023 1:20 PM CDT Appointment Outpatient Procedure Center in [place], [place] [address] [place] [address] Madison Caicedo M.D. [address] [place] [address] documented as of this encounter Results * Optical Coherence Tomography - Macula/Retina - OU - Both Eyes (06/08/2022 9:47 AM CDT) Narrative OPHTHALMOLOGY IMAGING EXAM - 06/10/2022 8:43 AM CDT Right Eye Reliability was good. OCT device used was Spectralis . Left Eye Reliability was good. OCT device used was Spectralis . Notes See clinical note from 06/10/2022 ??for interpretation. Madison Caicedo MD Madison Caicedo M.D. OPHTH TOMOGRAPHY Performing Organization Address [facility] Co de Phone Number OPHTHALMOLOGY IMAGING EXAM * Fluorescein Angiography - OU - Both Eyes (06/08/2022 9:40 AM CDT) Narrative OPHTHALMOLOGY IMAGING EXAM - 06/10/2022 8:43 AM CDT Right Eye Dye used is fluorescein. Fluorescein dose given is normal. Left Eye Dye used is fluorescein. Fluorescein dose given is normal. Notes See clinical note from 06/10/2022 ??for interpretation. Madison Caicedo MD Madison Caicedo M.D. OPHTH PHOTOGRAPHY Performing Organization Address [facility] Co de Phone Number OPHTHALMOLOGY IMAGING EXAM * Fundus Photos - OU - Both Eyes (06/08/2022 9:40 AM CDT) Narrative OPHTHALMOLOGY IMAGING EXAM - 06/10/2022 8:43 AM CDT Right Eye Field of view is ultra-wide view. Fundus photo type obtained is Color. Left Eye Field of view is ultra-wide view. Fundus photo type obtained is Color. Notes Color photos: Consistent with exam both eyes ?? Madison Caicedo M.D. 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
--- OUTSIDE RECORDS SUMMARY | 2023-03-23 07:29 | XMS_ITS | Encounter Summary ---
Author Name Unknown Organization [facility] Address [address] [place] [address] Care Team Providers Care Tailor Helper Name Role Phone Elsewhere, Pcp Primary Care Provider Unavailabl e Reason for Visit * Outpatient (Routine) - Authorized Specialty Diagnoses / Procedures Referred By Contac t Referred To Contact Ophthalmology Diagnoses . Procedures OPH TEST VISUAL ACUITY CHECK [facility] Shaila [address] [place] [address] Referral ID Status Reason Start Date Expiration Date V isits Requested Visits Authorized [id number] Authorized 06/08/2022 06/08/2023 4 4 Encounter Details Date Type Department Care Team (Latest Contact Info) Description 06/08/2022 9:30 AM CDT Ancillary Procedure Department of Ophthalmology in [place], [place] [address] [place] [phone] Madison Caicedo M.D. [address] [place] [phone] Diabetes Mellitus Type 2 With Mild Nonproliferative [...] (Latest Contact Info) Description 04/18/2023 1:10 PM BRACELET MAKER NOVELTY Ancillary Procedure Department of Ophthalmology in [address] [address] 04/18/2023 1:30 PM BRACELET MAKER NOVELTY Appointment Outpatient Procedure Center in [address] [address] Madison Caicedo M.D. [address] [place] [phone] Discharge Disposition: Home or Self Care 05/23/2023 9:45 AM CDT Clinical Communication Virtual Review in [address] [address] 05/26/2023 8:30 AM CDT Ancillary Procedure Department of Ophthalmology in [address] [address] Madison Caicedo M.D. [address] [place] [phone] 05/26/2023 9:00 AM CDT Ancillary Procedure Department of Ophthalmology in [address] [address] Madison Caicedo M.D. [address] [place] [phone] 05/26/2023 9:15 AM CDT Office Visit Department of Ophthalmology in [address] [address] Madison Caicedo M.D. [address] [place] [phone] 05/26/2023 1:20 PM CDT Appointment Outpatient Procedure Center in [place], [place] [address] [place] [address] Madison Caicedo M.D. [address] [place] [address] documented as of this encounter Procedures Procedure Name Priority Date/Time Associated Diagnosis Comments OPTICAL COHERENCE TOMOGRAPHY - MACULA/RETINA - OU - BOTH EYES Routine 06/08/2022 9:47 AM CDT Diabetes Mellitus Type 2 With [...] (HCC) documented in this encounter Care Teams Tailor Helper Relationship Specialty Start Date End Date Elsewhere, Pcp PCP - General Family Medicine 02/17/17 documented as of this encounter
--- OUTSIDE RECORDS SUMMARY | 2023-03-23 07:29 | XMS_ITS | Encounter Summary ---
Author Name Unknown Organization [facility] Address [address] [place] [address] Care Team Providers Care Mammalogist Name Role Phone Elsewhere, Pcp Primary Care Provider Unavailabl e Encounter Details Date Type Department Care Team (Late st Contact Info) Description 05/08/2014 Historical Ophthalmology RST OPH Benitez Yuan M.D. [address] [place] [address] Social History Tobacco Use Types Packs/Day Years Used Date Smoking Tobacco: Never Assessed Sex and Gender Information Value Date Recorded Sex Assigned at Male 12/14/2022 12:21 PM CDT Gender Identity Male 12/14/2022 12:21 PM CDT Sexual Orientation Straight 12/14/2022 12 :21 PM CDT documented as of this encounter Progress Notes * Benitez Yuan M.D. - 05/08/2014 7:47 AM CDT Eye General CHIEF COMPLAINT Follow up on DM retinopathy background HISTORY OF PRESENT ILLNESS Patient has been going for yearly diabetic exams with Dr. John. Patient got a changed prescription, and was told Dr. John to get his retina checked. He had not had any change in vision, does not have floaters, and has seen no flashes of light. Occasional headaches, generalized. Blood sugar 125-135. He did not check it today or tomorrow. His last HbA1c was 7.1 in January. 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 [address] [place] [phone] Discharge Disposition: Home or Self Care 05/23/2023 9:45 AM CDT Clinical Communication Virtual Review in [address] [address] 05/26/2023 8:30 AM CDT Ancillary Procedure Department of Ophthalmology in [address] [address] Madison Caicedo M.D. [address] [place] [phone] 05/26/2023 9:00 AM CDT Ancillary Procedure Department of Ophthalmology in [place], [place] [address] [place] [address] Madison Caicedo M.D. [address] [place] [phone] 05/26/2023 9:15 AM CDT Office Visit Department of Ophthalmology in [place], [place] [address] [place] [phone] Madison Caicedo M.D. [address] [place] [phone] 05/26/2023 1:20 PM CDT Appointment Outpatient Procedure Center in [place], [place] [address] [place] [phone] Madison Caicedo M.D. [address] [place] [phone] documented as of this encounter Visit Diagnoses Not on filedocumented in this encounter Care Teams Mammalogist Relationship Specialty Start Date End Date Elsewhere, Pcp PCP - General Family Medicine 02/17/17 documented as of this encounter
--- OUTSIDE RECORDS SUMMARY | 2023-03-23 07:29 | XMS_ITS | Encounter Summary ---
Author Name Unknown Organization [facility] Address [address] [place] [address] Care Team Providers Care Vp Marketing Services And Skin Name Role Phone Elsewhere, Pcp Primary Care Provider Unavailabl e Encounter Details Date Type Department Care Team (Late st Contact Info) Description 03/10/2016 Historical Ophthalmology RST OPH Benitez Yuan M.D. [address] [place] [address] Social History Tobacco Use Types Packs/Day Years Used Date Smoking Tobacco: Never Assessed Sex and Gender Information Value Date Recorded Sex Assigned at Male 12/14/2022 12:21 PM CDT Gender Identity Male 12/14/2022 12:21 PM CDT Sexual Orientation Straight 12/14/2022 12 :21 PM CDT documented as of this encounter Progress Notes * Benitez Yuan M.D. - 03/10/2016 7:37 AM CST Eye General CHIEF COMPLAINT Non-proliferative diabetic retinopathy BOTH eyes HISTORY OF PRESENT ILLNESS 70 year old man here for a follow up of Non-proliferative diabetic retinopathy BOTH eyes. No new eye concerns since last visit.Last HbA1c was 6.8 03/02/2016 . Blood sugars 130 Patient reports no visual changes. Denies diplopia, flashes of light, floaters and ocular pain. 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 [address] [place] [phone] Discharge Disposition: Home or Self Care 05/23/2023 9:45 AM CDT Clinical Communication Virtual Review in [place], [place] 200 [place] [address] 05/26/2023 8:30 AM CDT Ancillary Procedure Department of Ophthalmology in [address] [address] Madison Caicedo M.D. [address] [place] [phone] 05/26/2023 9:00 AM CDT Ancillary Procedure Department of Ophthalmology in [place], [place] [address] [place] [address] Madison Caicedo M.D. [address] [place] [phone] 05/26/2023 9:15 AM CDT Office Visit Department of Ophthalmology in [place], [place] [address] [place] [address] Madison Caicedo M.D. [address] [place] [phone] 05/26/2023 1:20 PM CDT Appointment Outpatient Procedure Center in [place], [place] [address] [place] [phone] Madison Caicedo M.D. [address] [place] [phone] documented as of this encounter Visit Diagnoses Not on filedocumented in this encounter Care Teams Vp Marketing Services And Skin Relationship Specialty Start Date End Date Elsewhere, Pcp PCP - General Family Medicine 02/17/17 documented as of this encounter
--- OUTSIDE RECORDS SUMMARY | 2023-03-23 07:29 | XMS_ITS | Encounter Summary ---
Author Name Unknown Organization [facility] Address [address] [place] [address] Care Team Providers Care Baby Doctor Name Role Phone Elsewhere, Pcp Primary Care Provider Unavailabl e Encounter Details Date Type Department Care Team (Late st Contact Info) Description 05/23/2006 Historical Ophthalmology RST OPH Trino Ron M.D. [address] [place] [address] Social History Tobacco Use Types Packs/Day Years Used Date Smoking Tobacco: Never Assessed Sex and Gender Information Value Date Recorded Sex Assigned at Male 12/14/2022 12:21 PM CDT Gender Identity Male 12/14/2022 12:21 PM CDT Sexual Orientation Straight 12/14/2022 12 :21 PM CDT documented as of this encounter Progress Notes * Trino Ron M.D. - 05/23/2006 11:24 AM CDT Eye General CHIEF COMPLAINT Recheck after laser left eye HISTORY OF PRESENT ILLNESS Patient returns for follow up after laser on his left eye. No new eye concerns today. Blood sugars stable. IMPRESSION / REPORT / PLAN #1 Background diabetic retinopathy and macular edema Off Avandia since 08/17/05. 8 lb weight loss. BP is stable. s/p pc LE 01/03 and looks dry clinically with trace edema on OCT. No rx. See 4 mos DIAGNOSIS #1 Background diabetic retinopathy and macular edema CDM Reports - EYEGEN Id: [id number] Status: Fnl documented in this encounter Plan of Treatment Upcoming Encounters Date Type Department Care Team (Latest Contact Info) Description 04/18/2023 1:10 PM BIODIESEL PRODUCT DEVELOPMENT MANAGER Ancillary Procedure Department of Ophthalmology in [address] [address] 04/18/2023 1:30 PM BIODIESEL PRODUCT DEVELOPMENT MANAGER Appointment Outpatient Procedure Center in [place], [place] [address] [place] [phone] Madison Caicedo M.D. [address] [place] [phone] Discharge Disposition: Home or Self Care 05/23/2023 9:45 AM CDT Clinical Communication Virtual Review in [place], [place] 200 [place] [address] 05/26/2023 8:30 AM CDT Ancillary Procedure Department of Ophthalmology in [address] [address] Madison Caicedo M.D. [address] [place] [phone] 05/26/2023 9:00 AM CDT Ancillary Procedure Department of Ophthalmology in [address] [address] Madison Caicedo M.D. [address] [place] [phone] 05/26/2023 9:15 AM CDT Office Visit Department of Ophthalmology in [address] [address] Madison Caicedo M.D. [address] [place] [phone] 05/26/2023 1:20 PM CDT Appointment Outpatient Procedure Center in [address] [address] Madison Caicedo M.D. [address] [place] [address] documented as of this encounter Visit Diagnoses Not on filedocumented in this encounter Care Teams Baby Doctor Relationship Specialty Start Date End Date Elsewhere, Pcp PCP - General Family Medicine 02/17/17 documented as of this encounter
--- OUTSIDE RECORDS SUMMARY | 2023-03-23 07:29 | XMS_ITS | Encounter Summary ---
Author Name Unknown Organization [facility] Address [address] [place] [address] Care Team Providers Care Humanities Professor Name Role Phone Elsewhere, Pcp Primary Care Provider Unavailabl e Reason for Visit * Outpatient (Routine) - Authorized Specialty Diagnoses / Procedures Referred By Contac t Referred To Contact Ophthalmology Diagnoses . Procedures OPH TEST VISUAL ACUITY CHECK [facility] Rst Oph Shaila [address] [place] [address] Referral ID Status Reason Start Date Expiration Date V isits Requested Visits Authorized [id number] Authorized 06/08/2022 06/08/2023 4 4 Encounter Details Date Type Department Care Team (Latest Contact Info) Description 06/08/2022 8:50 AM CDT Ancillary Procedure Department of Ophthalmology in [place], [place] [address] [place] [phone] Madison Caicedo M.D. [address] [place] [phone] Diabetes Mellitus Type 2 With Mild Nonproliferative [...] (Latest Contact Info) Description 04/18/2023 1:10 PM METAL RIVETER Ancillary Procedure Department of Ophthalmology in [address] [phone] 04/18/2023 1:30 PM METAL RIVETER Appointment Outpatient Procedure Center in [address] [phone] Madison Caicedo M.D. [address] [place] [phone] Discharge Disposition: Home or Self Care 05/23/2023 9:45 AM CDT Clinical Communication Virtual Review in [address] [address] 05/26/2023 8:30 AM CDT Ancillary Procedure Department of Ophthalmology in [address] [address] Madison Caicedo M.D. [address] [place] [phone] 05/26/2023 9:00 AM CDT Ancillary Procedure Department of Ophthalmology in [address] [address] Madison Caicedo M.D. [address] [place] [phone] 05/26/2023 9:15 AM CDT Office Visit Department of Ophthalmology in [address] [phone] Madison Caicedo M.D. [address] [place] [phone] 05/26/2023 1:20 PM CDT Appointment Outpatient Procedure Center in [place], [place] [address] [place] [address] Madison Caicedo M.D. 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
--- OUTSIDE RECORDS SUMMARY | 2023-03-23 07:29 | XMS_ITS | Encounter Summary ---
Author Name Unknown Organization [facility] Address [address] [place] [address] Care Team Providers Care Sales Stock Associate Name Role Phone Elsewhere, Pcp Primary Care Provider Unavailabl e Encounter Details Date Type Department Care Team (Late st Contact Info) Description 05/10/2017 Historical Ophthalmology RST OPH Benitez Yuan M.D. [address] [place] [address] Social History Tobacco Use Types Packs/Day Years Used Date Smoking Tobacco: Never Assessed Sex and Gender Information Value Date Recorded Sex Assigned at Male 12/14/2022 12:21 PM CDT Gender Identity Male 12/14/2022 12:21 PM CDT Sexual Orientation Straight 12/14/2022 12 :21 PM CDT documented as of this encounter Progress Notes * Benitez Yuan M.D. - 05/10/2017 8:00 AM CDT Eye General CHIEF COMPLAINT Blurred vision HISTORY OF PRESENT ILLNESS 'Blurred vision; left eye; x 1 year; constantly; symptoms are stable. Blood sugar 146 last night A1C 8.6 04/12/17 KDC: Vision is stable over the last several months. Patient had left Ozurdex placed . IMPRESSION / REPORT / PLAN OCT 05/15: RIGHT: small IRF, mildly increased from , VMA; LEFT: subfoveal IRF stable but increased IRF parafoveal OCT 09/13 RIGHT: relatively stable, heme ST to fovea with shadowing LEFT: nick foveal IRF, vitreofoveal adhesion OCT 07/14 RIGHT: [...] RIGHT: minimal edema LEFT: hx focal laser 12/2005 - tight glycemic (HbA1c has been controlled, reports sugars run in 130s), hypertensive, and cholesterol control d/w pt) - Current A1c 8.6 Mar-2017 #2 diabetic macular edema LEFT eye #3 Cataracts BOTH eyes -non visually-significant #4 refractive error IMPRESSION/PLAN 05/10/2017: trial ozurdex last year without any benefit LEFT eye - still VMT but stable, mild DME RIGHT eye - observe FU [address] Softing with OCT (watching RIGHT eye closely - will observe LEFT eye unless significant worsening) DIAGNOSIS #1 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 [address] [place] [phone] Discharge Disposition: Home or Self Care 05/23/2023 9:45 AM CDT Clinical Communication Virtual Review in [place], [place] 200 [place] [address] 05/26/2023 8:30 AM CDT Ancillary Procedure Department of Ophthalmology in [place], [place] [address] [place] [phone] Madison Caicedo M.D. [address] [place] [phone] 05/26/2023 9:00 AM CDT Ancillary Procedure Department of Ophthalmology in [place], [place] [address] [place] [phone] Madison Caicedo M.D. [address] [place] [phone] 05/26/2023 9:15 AM CDT Office Visit Department of Ophthalmology in [place], [place] [address] [place] [phone] Madison Caicedo M.D. [address] [place] [phone] 05/26/2023 1:20 PM CDT Appointment Outpatient Procedure Center in [place], [place] [address] [place] [phone] Madison Caicedo M.D. [address] [place] [phone] documented as of this encounter Visit Diagnoses Not on filedocumented in this encounter Care Teams Sales Stock Associate Relationship Specialty Start Date End Date Elsewhere, Pcp PCP - General Family Medicine 02/17/17 documented as of this encounter
--- OUTSIDE RECORDS SUMMARY | 2023-03-23 07:30 | XMS_ITS | Encounter Summary ---
Author Name Unknown Organization [facility] Address [address] [place] [address] Care Team Providers Care Ornamental Iron Erector Name Role Phone Elsewhere, Pcp Primary Care Provider Unavailabl e Encounter Details Date Type Department Care Team (Late st Contact Info) Description 11/16/2005 Historical Ophthalmology RST OPH Trino Ron M.D. [address] [place] [address] Social History Tobacco Use Types Packs/Day Years Used Date Smoking Tobacco: Never Assessed Sex and Gender Information Value Date Recorded Sex Assigned at Male 12/14/2022 12:21 PM CDT Gender Identity Male 12/14/2022 12:21 PM CDT Sexual Orientation Straight 12/14/2022 12 :21 PM CDT documented as of this encounter Progress Notes * Trino Ron M.D. - 11/16/2005 12:00 AM CDT Eye General CHIEF COMPLAINT Diabetic HISTORY OF PRESENT ILLNESS Patient returns for follow up diabetic eye exam. No new eye concerns per patient. Blood sugars stable. IMPRESSION / REPORT / PLAN #1 Background diabetic retinopathy and macular edema L>R Off Avandia since 08/17/05. 8 lb weight loss. BP is stable. Edema resolved RE but persists LE. See in 2 mos with OCT if no better then consider pc LE. DIAGNOSIS #1 Background diabetic retinopathy and macular edema L>R CDM Reports - EYEGEN Id: [id number] Status: Fnl documented in this encounter Plan of Treatment Upcoming Encounters Date Type Department Care Team (Latest Contact Info) Description 04/18/2023 1:10 PM EQUIPMENT TESTER Ancillary Procedure Department of Ophthalmology in [place], [place] [address] [place] [phone] 04/18/2023 1:30 PM EQUIPMENT TESTER Appointment Outpatient Procedure Center in [place], [place] [address] [place] [phone] Madison Caicedo M.D. [address] [place] [phone] Discharge Disposition: Home or Self Care 05/23/2023 9:45 AM CDT Clinical Communication Virtual Review in [place], [place] 200 [place] [address] 05/26/2023 8:30 AM CDT Ancillary Procedure Department of Ophthalmology in [place], [place] [address] [place] [phone] Madison Caicedo M.D. [address] [place] [phone] 05/26/2023 9:00 AM CDT Ancillary Procedure Department of Ophthalmology in [address] [phone] Madison Caicedo M.D. [address] [place] [phone] 05/26/2023 9:15 AM CDT Office Visit Department of Ophthalmology in [address] [phone] Madison Caicedo M.D. [address] [place] [phone] 05/26/2023 1:20 PM CDT Appointment Outpatient Procedure Center in [address] [phone] Madison Caicedo M.D. [address] [place] [address] documented as of this encounter Visit Diagnoses Not on filedocumented in this encounter Care Teams Ornamental Iron Erector Relationship Specialty Start Date End Date Elsewhere, Pcp PCP - General Family Medicine 02/17/17 documented as of this encounter
--- OUTSIDE RECORDS SUMMARY | 2023-03-23 07:30 | XMS_ITS | Encounter Summary ---
Author Name Unknown Organization [facility] Address [address] [place] [address] Care Team Providers Care Senior Civil Engineer Name Role Phone Elsewhere, Pcp Primary Care Provider Unavailabl e Encounter Details Date Type Department Care Team (Late st Contact Info) Description 07/14/2005 Historical Ophthalmology RST OPH Trino Ron M.D. [address] [place] [address] Social History Tobacco Use Types Packs/Day Years Used Date Smoking Tobacco: Never Assessed Sex and Gender Information Value Date Recorded Sex Assigned at Male 12/14/2022 12:21 PM CDT Gender Identity Male 12/14/2022 12:21 PM CDT Sexual Orientation Straight 12/14/2022 12 :21 PM CDT documented as of this encounter Progress Notes * Trino Ron M.D. - 07/14/2005 12:00 AM CDT Eye General CHIEF COMPLAINT blurred vision both eyes HISTORY OF PRESENT ILLNESS Blurred vision both eyes x 1 month, left eye worse than the right eye. Patient was diagnosed with diabetes in March 2005. Patients blood sugar was 101 this morning. Patients blood sugar has rangedfrom 69-166 x 1 month. Patient denies flashes of light, floaters, ocular pain and diplopia. IMPRESSION / REPORT / PLAN #1 Background diabetic retinopathy and macular edema L>R On Avandia. BP today 134/88. Get FA color fundus photos and OCT both eyes-edema L>R. FA shows parafoveal leakage both eyes and from micros above. Rec dc Avandia and better BP control prior to considering pc. See letter. RTC 2 mos with OCT. DIAGNOSIS #1 Background diabetic retinopathy and macular edema L>R CDM Reports - EYEGEN Id: [id number] Status: Fnl documented in this encounter Plan of Treatment Upcoming Encounters Date Type Department Care Team (Latest Contact Info) Description 04/18/2023 1:10 PM WAREHOUSER Ancillary Procedure Department of Ophthalmology in [address] [phone] 04/18/2023 1:30 PM WAREHOUSER Appointment Outpatient Procedure Center in [address] [phone] Madison Caicedo M.D. [address] [place] [phone] Discharge Disposition: Home or Self Care 05/23/2023 9:45 AM CDT Clinical Communication Virtual Review in [address] [address] 05/26/2023 8:30 AM CDT Ancillary Procedure Department of Ophthalmology in [address] [address] Madison Caicedo M.D. [address] [place] [phone] 05/26/2023 9:00 AM CDT Ancillary Procedure Department of Ophthalmology in [address] [address] Madison Caicedo M.D. [address] [place] [phone] 05/26/2023 9:15 AM CDT Office Visit Department of Ophthalmology in [address] [phone] Madison Caicedo M.D. [address] [place] [phone] 05/26/2023 1:20 PM CDT Appointment Outpatient Procedure Center in [place], [place] [address] [place] [address] Madison Caicedo M.D. [address] [place] [phone] documented as of this encounter Visit Diagnoses Not on filedocumented in this encounter Care Teams Senior Civil Engineer Relationship Specialty Start Date End Date Elsewhere, Pcp PCP - General Family Medicine 02/17/17 documented as of this encounter
--- OUTSIDE RECORDS SUMMARY | 2023-03-23 07:30 | XMS_ITS | Clinical Summary ---
Author Name Unknown Organization [facility] Address [place], [place] [address] Care Team Providers Care Duplex Trimmer Name Role Phone Suleiman Barajas MD Primary Care Provider Medications Medication Sig Dispensed Refills Start Date End Date Status aspirin (ECOTRIN) 81 mg enteric coated tablet Take 81 mg by mouth once daily. 0 Active blood sugar diagnostic (BLOOD GLUCOSE TEST) strip once every other day. 0 03/31/2016 Active glipiZIDE (GLUCOTROL) 10 mg tablet Take 20 mg by mouth 2 times daily before meals. 0 04/27/2017 Active metFORMIN (GLUCOPHAGE) 500 mg tablet Take 1,500 mg by mouth 2 times daily with meals. 0 04/27/2017 Active ramipril (ALTACE) 10 mg capsule Take 20 mg by mouth once daily. 0 11/10/2016 Active simvastatin (ZOCOR) 40 mg tablet Take 40 mg by mouth once daily. 0 02/11/2017 Active Social History Tobacco Use Types Packs/Day Years Used Date Smoking Tobacco: Never Smokeless Tobacco: Never Tobacco Cessation:Counseling Given: Yes Alcohol Use Standard Drinks/Week Comments No 0 (1 standard drink = 0.6 oz pur e alcohol) Sex and Gender Information Value Date Recorded Sex Assigned at Not on file Gender Identity Not on file Sexual Orientation Not on file Obstetrics History Last Filed Vital Signs Vital Sign Reading Time Taken Comments Blood Pressure 143/82 07/26/2018 7:54 AM CDT tow er Pulse 68 07/26/2018 7:54 AM CDT Temperature 36.4 ??C (97.5 ??F) 09/21/2017 9:07 AM CD T Respiratory Rate - - Oxygen Saturation 98% 07/26/2018 7:54 AM CDT Inhaled Oxygen Concentration - - Weight 86.1 kg (189 lb 14.4 oz) 07/26/2018 7:54 AM CDT Height - - Body Mass Index - - Plan of Treatment Health Maintenance Due Date Last Done Comments COVID-19 vaccine series (#1) 01/04/1946 Tdap 07/03/1958 Depression screening for age 12+ 1959 BMI (ht and wt on same day) for age 18+ 07/03/1965 Hepatitis C screening for age 18-79 07/03/1965 Tetanus booster 1967 Colonoscopy through age 75 07/03/1992 Lipids for age 45-75 07/03/1992 Zoster (shingles) series for age 50+ (1 of 2) 07/03/18 98 Medicare Wellness for age 65+ 07/03/2012 Pneumococcal series for age 65+ (1 of 1 - PCV) 013 Influenza for age 65+ 10/29/2022 Care Teams Duplex Trimmer Relationship Specialty Start Date End Date Suleiman Barajas MD [address] [place] [address] PCP - General Internal Medicine 08/17/17
--- OUTSIDE RECORDS SUMMARY | 2023-03-23 07:30 | XMS_ITS | Encounter Summary ---
Author Name Unknown Organization [facility] Address [address] [place] [address] Care Team Providers Care Gun Perforator Loader Name Role Phone Elsewhere, Pcp Primary Care Provider Unavailabl e Encounter Details Date Type Department Care Team (Late st Contact Info) Description 09/14/2005 Historical Ophthalmology RST OPH Trino Ron M.D. [address] [place] [address] Social History Tobacco Use Types Packs/Day Years Used Date Smoking Tobacco: Never Assessed Sex and Gender Information Value Date Recorded Sex Assigned at Male 12/14/2022 12:21 PM CDT Gender Identity Male 12/14/2022 12:21 PM CDT Sexual Orientation Straight 12/14/2022 12 :21 PM CDT documented as of this encounter Progress Notes * Trino Ron M.D. - 09/14/2005 12:00 AM CDT Eye General CHIEF COMPLAINT Diabetic HISTORY OF PRESENT ILLNESS Patient returns for diabetic follow up. No new concerns today per patient. Blood sugars stable. IMPRESSION / REPORT / PLAN #1 Background diabetic retinopathy and macular edema L>R Off Avandia since 08/17/05. 4 lb weight loss. VA improving and OCT without much change. BP 130/88. RTC 2 mos with OCT. DIAGNOSIS #1 Background diabetic retinopathy and macular edema L>R CDM Reports - EYEGEN Id: [id number] Status: Fnl documented in this encounter Plan of Treatment Upcoming Encounters Date Type Department Care Team (Latest Contact Info) Description 04/18/2023 1:10 PM HEALTH PROMOTION SPECIALIST Ancillary Procedure Department of Ophthalmology in [place], [place] [address] [place] [phone] 04/18/2023 1:30 PM HEALTH PROMOTION SPECIALIST Appointment Outpatient Procedure Center in [place], [place] [address] [place] [phone] Madison Caicedo M.D. [address] [place] [phone] Discharge Disposition: Home or Self Care 05/23/2023 9:45 AM CDT Clinical Communication Virtual Review in [place], [place] 200 [place] [address] 05/26/2023 8:30 AM CDT Ancillary Procedure Department of Ophthalmology in [place], [place] [address] [place] [phone] Madison Caicedo M.D. [address] [place] [phone] 05/26/2023 9:00 AM CDT Ancillary Procedure Department of Ophthalmology in [address] [phone] Madison Caicedo M.D. [address] [place] [phone] 05/26/2023 9:15 AM CDT Office Visit Department of Ophthalmology in [place], [place] [address] [place] [phone] Madison Caicedo M.D. [address] [place] [phone] 05/26/2023 1:20 PM CDT Appointment Outpatient Procedure Center in [address] [phone] Madison Caicedo M.D. [address] [place] [phone] documented as of this encounter Visit Diagnoses Not on filedocumented in this encounter Care Teams Gun Perforator Loader Relationship Specialty Start Date End Date Elsewhere, Pcp PCP - General Family Medicine 02/17/17 documented as of this encounter
--- OUTSIDE RECORDS SUMMARY | 2023-03-23 07:30 | XMS_ITS | Encounter Summary ---
Author Name Unknown Organization [facility] Address [address] [place] [address] Care Team Providers Care Optimization Analyst Name Role Phone Elsewhere, Pcp Primary Care Provider Unavailabl e Encounter Details Date Type Department Care Team (Late st Contact Info) Description 01/18/2006 Historical Ophthalmology RST OPH Trino Ron M.D. [address] [place] [address] Social History Tobacco Use Types Packs/Day Years Used Date Smoking Tobacco: Never Assessed Sex and Gender Information Value Date Recorded Sex Assigned at Male 12/14/2022 12:21 PM CDT Gender Identity Male 12/14/2022 12:21 PM CDT Sexual Orientation Straight 12/14/2022 12 :21 PM CDT documented as of this encounter Progress Notes * Trino Ron M.D. - 01/18/2006 12:00 AM CST Eye General CHIEF COMPLAINT Diabetic HISTORY OF PRESENT ILLNESS Patient returns for diabetic follow up. No new eye concerns per patient. Blood sugars stable. IMPRESSION / REPORT / PLAN #1 Background diabetic retinopathy and macular edema L>R Off Avandia since 08/17/05. 8 lb weight loss. BP is stable. Edema resolved RE but persists LE. OCT 01/18/06: right eye: resolved macular edema, foveal thickness 202 left eye: persistent macular edema, foveal thickness decreased from 488 to 388 Discussed options ETDRS rationale risks uncertainties side effects with pt and . Will pc LE today and see in 4 mos with OCT. DIAGNOSIS #1 Background diabetic retinopathy and macular edema L>R CDM Reports - EYEGEN Id: [id number] Status: Fnl documented in this encounter Plan of Treatment Upcoming Encounters Date Type Department Care Team (Latest Contact Info) Description 04/18/2023 1:10 PM HARVESTING MANAGER Ancillary Procedure Department of Ophthalmology in [address] [phone] 04/18/2023 1:30 PM HARVESTING MANAGER Appointment Outpatient Procedure Center in [address] [phone] Madison Caicedo M.D. [address] [place] [phone] Discharge Disposition: Home or Self Care 05/23/2023 9:45 AM CDT Clinical Communication Virtual Review in [address] [address] 05/26/2023 8:30 AM CDT Ancillary Procedure Department of Ophthalmology in [address] [address] Madison Caicedo M.D. [address] [place] [phone] 05/26/2023 9:00 AM CDT Ancillary Procedure Department of Ophthalmology in [address] [address] Madison Caicedo M.D. [address] [place] [phone] 05/26/2023 9:15 AM CDT Office Visit Department of Ophthalmology in [address] [address] Madison Caicedo M.D. [address] [place] [phone] 05/26/2023 1:20 PM CDT Appointment Outpatient Procedure Center in [place], [place] [address] [place] [address] Madison Caicedo M.D. [address] [place] [address] documented as of this encounter Visit Diagnoses Not on filedocumented in this encounter Care Teams Optimization Analyst Relationship Specialty Start Date End Date Elsewhere, Pcp PCP - General Family Medicine 02/17/17 documented as of this encounter
--- NOTE | 2023-03-23 07:37 | SUR.PREOP ---
The eye drops brought by the patient (Ketorolac, Oflaxacin, and Prednisolone) are examined and I have determined they are labeled by the patient's pharmacy for this patient as prescribed by the surgeon. The bottles are intact, recently obtained and appear to be correct.
[2023-03-23 07:38] VITALS: BP 132/87; PULSE 84; RESP 16; TEMP 36.4; O2SAT 98; BMI 22.6
[2023-03-23] MEDS: SODIUM CHLORIDE 0.9 % (FLUSH) 10 ML SYRINGE IVF (07:52)
[2023-03-23] MEDS: TETRACAINE 0.5% OPHTH 2 DROP EYE-LEFT (08:32)
[2023-03-23] MEDS: BALANCED SALT IRRIG SOLN 15 ML EYE-LEFT (08:36)
--- NOTE | 2023-03-23 08:58 | P.ANES_ITS ---
Anesthesia Charges Start Date/Time Anesthesia Start Date: 03/23/23 Anesthesia Start Time: 08:29 Stop Date/Time Anesthesia Stop Date: 03/23/23 Anesthesia Stop Time: 08:59 Summary Extremes of Age - Over 70 or under 1: SLIDE FASTENERS INSPECTOR
[2023-03-23 09:06] VITALS: BP 120/86; PULSE 78; RESP 16; TEMP 36.5; O2SAT 95
--- NOTE | 2023-03-23 09:08 | P.OPTPRC_ITS ---
Procedure Note Date of procedure: 03/23/23 Will [facility] bill your pro fee for this procedure?: Yes Procedure Description: SURGEON: Marily Kaplan MD PREOPERATIVE DIAGNOSIS: Mature cataract, left eye. POSTOPERATIVE DIAGNOSIS: Mature cataract, left eye. NAME OF OPERATION: Phacoemulsification of cataract with posterior chamber intraocular lens implantation in the left eye. ANESTHESIA: Topical. ESTIMATED BLOOD LOSS: Less than 2 cc. COMPLICATIONS: None. PATHOLOGY SPECIMEN: None. INDICATIONS: See consult note for details. The risks, benefits and alternatives of the procedure were explained to the patient, who elected to proceed and signed informed consent to do so. PROCEDURE: The patient was brought to the pre-holding area where the left eye was identified as the operative eye. I placed my initials above this eye. The patient received eye drops consisting of 0.5% tetracaine, 1% tropicamide, 10% phenylephrine, and 0.5% ketorolac. The patient was then brought to the operating room where the left eye was again identified as the operative eye. The eye was prepped with Betadine and draped in the usual sterile ophthalmic fashion. A #15 super-sharp blade was used to create a paracentesis site. 1% non-preserved intracameral lidocaine was injected into the anterior chamber. Endocoat was injected into the anterior chamber. A 2.4 mm keratome was used to create a three-plane self-sealing incision 1 mm anterior to the temporal limbus. A cystotome was used to create an anterior capsular leaflet. The Utrata forceps were used to extend this to form a continuous curvilinear capsulorrhexis. Hydrodissection was performed. The cataract was removed with phacoemulsification using the [id number] technique. The irrigation and aspiration tip was used to remove the remaining cortex. Healon was injected into the capsular bag. An SHUN [id number] intraocular lens of 21.0 diopters was injected into the capsular bag. The irrigation and aspiration tip was used to remove the remaining viscoelastic. Balanced salt solution on a cannula was used to hydrate the wound, and the wound was found to be watertight. The pupil was noted to be round. DISPOSITION: The patient was taken to the recovery room and discharged to home in stable condition. The patient was instructed to call me or go to the emergency department with any sudden change, including dramatic loss of vision, severe pain in the eye or eyebrow region, nausea, or vomiting. The patient will follow up in the clinic tomorrow morning.
--- NOTE | 2023-03-23 11:31 | W.ANESCHARGE ---
Anesthesia Charges Start Date/Time Anesthesia Start Date: 03/23/23 Anesthesia Start Time: 08:29 Stop Date/Time Anesthesia Stop Date: 03/23/23 Anesthesia Stop Time: 08:59 Summary Extremes of Age - Over 70 or under 1: MDA
== END 2023-03-23 09:15 | disposition home or self-care (01) ==
PROVIDERS: PCP Internal Medicine; Visit Provider Ophthalmology
PROC: (CPT 66984; principal; 2023-03-23 07:30)
DX: H25.89 Other age-related cataract (principal)
CPT/HCPCS: 66984; 00142; 99100; A9270; J2250; J3010; V2632

== ENCOUNTER 2023-04-11 10:50 | Outpatient (REF) | payer MEDICARE, SELFPAY ==
--- OUTSIDE RECORDS SUMMARY | 2023-04-12 06:31 | XMS_ITS | Encounter Summary ---
Author Name Unknown Organization [facility] Address [address] [place] [address] Care Team Providers Care Fashion Consultant Selling Name Role Phone Elsewhere, Pcp Primary Care Provider Unavailabl e Encounter Details Date Type Department Care Team (Latest Contact Info) Description 03/15/2023 Clinical Communication Department of Ophthalmology in [place], [place] [address] [place] [address] Madison Caicedo M.D. [address] [place] [phone] Social History Tobacco Use Types Packs/Day Years [...] Maldonado - 03/15/2023 1:02 PM CST Pt [phone], Mr. Arthur, is scheduled to see Dr. Caicedo on 04/20, but is having cataract surgery (elsewhere) that same day. Please advise when to reschedule pt (first available, or is a certain amount time needed between cataract surgery and follow up/inj?) Dr. Caicedo doesn't have anything available prior to 04/20. Thank you! *Inj schedulers, please call pt when able to reschedule. CY DIRECTOR documented in this encounter Plan of Treatment Upcoming Encounters Date Type Department Care Team (Latest Contact Info) Description 04/18/2023 1:10 PM AGENCY DIRECTOR Ancillary Procedure Department of Ophthalmology in [address] [address] 04/18/2023 1:30 PM AGENCY DIRECTOR Appointment Outpatient Procedure Center in [address] [address] Madison Caicedo M.D. [address] [place] [phone] Discharge Disposition: Home or Self Care 05/23/2023 9:45 AM CDT Clinical Communication Virtual Review in [address] [address] 05/26/2023 8:30 AM CDT Ancillary Procedure Department of Ophthalmology in [address] [address] Madison Caicedo M.D. [address] [place] [phone] 05/26/2023 9:00 AM CDT Ancillary Procedure Department of Ophthalmology in [address] [address] Madison Caicedo M.D. [address] [place] [phone] 05/26/2023 9:15 AM CDT Office Visit Department of Ophthalmology in [address] [phone] Madison Caicedo M.D. [address] [place] [phone] 05/26/2023 1:20 PM CDT Appointment Outpatient Procedure Center in [place], [place] [address] [place] [address] Madison Caicedo M.D. [address] [place] [phone] documented as of this encounter Visit Diagnoses Not on filedocumented in this encounter Care Teams Fashion Consultant Selling Relationship Specialty Start Date End Date Elsewhere, Pcp PCP - General Family Medicine 02/17/17 documented as of this encounter
--- OUTSIDE RECORDS SUMMARY | 2023-04-12 06:31 | XMS_ITS | Clinical Summary ---
Author Name Unknown Organization [facility] Address [address] [place] [address] Care Team Providers Care Clarifier Operator Helper Name Role Phone Elsewhere, Pcp Primary Care Provider Unavailabl e Source Comments Patient records contain information from all sites at [facility]. For routine questions regarding patient records, call [phone] during business hours, M-F 8:00 AM - 5:00 PM Central Time. Record requests for emergency care only can be directed to [phone] at any time.[facility] Allergies No known active allergies Medications Medication [...] strips every other day. 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 Discharge Disposition: Home or Self Care 03/15/2023 1:44 PM FIELD PIPE LINES SUPERVISOR - 03/15/2023 1:45 PM FIELD PIPE LINES SUPERVISOR Hospital Encounter Outpatient Procedure Center in [address] [address] Madison Caicedo M.D. 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 Discharge Disposition: Home or Self Care 02/15/2023 2:00 PM FIELD PIPE LINES SUPERVISOR Ancillary Procedure Department of Ophthalmology in [place], [place] [address] [place] [phone] Madison Caicedo M.D. 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 Discharge Disposition: Home or Self Care 01/18/2023 2:00 PM FIELD PIPE LINES SUPERVISOR Ancillary Procedure Department of Ophthalmology in [place], [place] [address] [place] [phone] Madison Caicedo M.D. 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 [address] [place] [phone] Discharge Disposition: Home or Self Care 05/23/2023 9:45 AM CDT Clinical Communication Virtual Review in [place], [place] [address] [place] [address] 05/26/2023 8:30 AM CDT Ancillary Procedure Department of Ophthalmology in [address] [address] Madison Caicedo M.D. [address] [place] [phone] 05/26/2023 9:00 AM CDT Ancillary Procedure Department of Ophthalmology in [address] [phone] Madison Caicedo M.D. [address] [place] [phone] 05/26/2023 9:15 AM CDT Office Visit Department of Ophthalmology in [address] [phone] Madison Caicedo M.D. [address] [place] [phone] 05/26/2023 1:20 PM CDT Appointment Outpatient Procedure Center in [address] [address] Madison Caicedo M.D. 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) INTRAVITREAL INJECTION, PHARMACOLOGIC AGENT - OD - RIGHT EYE Routine 02/15/2023 2:29 PM FIELD PIPE LINES SUPERVISOR 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) INTRAVITREAL INJECTION, PHARMACOLOGIC AGENT - OD - RIGHT EYE - RST GONDA SCHEDULING ORDER Routine 02/15/2023 1:42 PM FIELD PIPE LINES SUPERVISOR 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) INTRAVITREAL INJECTION, PHARMACOLOGIC AGENT - OD - RIGHT EYE Routine 01/18/2023 2:54 PM FIELD PIPE LINES SUPERVISOR 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 - 03/15/2023 2:09 PM FIELD PIPE LINES SUPERVISOR Pre-Procedure Verification Pre-procedure verification conducted to verify [...] mg/mL ??Route: intravitreal, Site: Right Eye ??[facility]: 58458-624-48 Balanced salt solution irrigation to injected eye [...] given if requested. Avastin RE Lot # [id number] Exp. 04/08/23 Filemon Mendez M.D. [facility] PROCED URES * Intravitreal Injection, Pharmacologic Agent - OD - Right Eye (02/15/2023 2:29 PM FIELD PIPE LINES SUPERVISOR) Narrative Bebe Duran M.D. - 02/15/2023 3:11 PM FIELD PIPE LINES SUPERVISOR Pre-Procedure Verification Pre-procedure verification conducted to verify [...] mg/mL ??Route: intravitreal, Site: Right Eye ??[facility]: 09973-538-33 Balanced salt solution irrigation to injected eye [...] given if requested. Avastin RE Lot # [id number] Exp. 03/23/23 Bebe Streeter M.D. [facility] PRO CEDURES * Intravitreal Injection, Pharmacologic Agent - OD - Right Eye (01/18/2023 2:54 PM FIELD PIPE LINES SUPERVISOR) Narrative Rj Bowen M.D. - 01/18/2023 5:29 PM FIELD PIPE LINES SUPERVISOR Pre-Procedure Verification Pre-procedure verification conducted to verify [...] mg/mL ??Route: intravitreal, Site: Right Eye ??[facility]: 99665-579-87 Balanced salt solution irrigation to injected eye [...] given if requested. Avastin RE Lot # [id number] Exp. 02/04/23 Rj Bowen M.D. OPH CLINIC PROCEDU RES from Last 3 Months Care Teams Clarifier Operator Helper Relationship Specialty Start Date End Date Elsewhere, Pcp PCP - General Family Medicine 02/17/17
--- OUTSIDE RECORDS SUMMARY | 2023-04-12 06:31 | XMS_ITS | Encounter Summary ---
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 [address] [place] [address] [facility] Referral ID Status Reason Start Date Expiration Date V isits Requested Visits Authorized [id number] Pending Review 03/16/2023 03/15/2024 1 1 TMENT COORDINATOR Encounter Details Date Type Department Care Team (Latest Contact Info) Description 03/16/2023 Orders Only Department of Ophthalmology in [place], [place] [address] [place] [address] Sydnie Rivero, CKeeOKeeAKee [address] [place] [address] Diabetes Mellitus Type 2 With [...] (Latest Contact Info) Description 04/18/2023 1:10 PM TREATMENT COORDINATOR Ancillary Procedure Department of Ophthalmology in [address] [address] 04/18/2023 1:30 PM TREATMENT COORDINATOR Appointment Outpatient Procedure Center in [address] [address] Madison Caicedo M.D. [address] [place] [phone] Discharge Disposition: Home or Self Care 05/23/2023 9:45 AM CDT Clinical Communication Virtual Review in [address] [address] 05/26/2023 8:30 AM CDT Ancillary Procedure Department of Ophthalmology in [address] [address] Madison Caicedo M.D. [address] [place] [phone] 05/26/2023 9:00 AM CDT Ancillary Procedure Department of Ophthalmology in [address] [address] Madison Caicedo M.D. [address] [place] [phone] 05/26/2023 9:15 AM CDT Office Visit Department of Ophthalmology in [address] [phone] Madison Caicedo M.D. [address] [place] [address] 05/26/2023 1:20 PM CDT Appointment Outpatient Procedure Center in [place], [place] [address] [place] [address] Madison Caicedo M.D. 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
--- OUTSIDE RECORDS SUMMARY | 2023-04-12 06:31 | XMS_ITS | Encounter Summary ---
Author Name Unknown Organization [facility] Address [address] [place] [address] Care Team Providers Care Potato Inspector Name Role Phone Elsewhere, Pcp Primary Care Provider Unavailabl e Encounter Details Date Type Department Care Team (Latest Contact Info) Description 03/15/2023 1:46 PM PRINTING SERVICES COORDINATOR - 03/15/2023 11:59 PM PRINTING SERVICES COORDINATOR Hospital Encounter Outpatient Procedure Center in [place], [place] [address] [place] [address] Filemon Mendez M.D. [address] [place] [address] Discharge Disposition: Home or Self Care Social [...] (Latest Contact Info) Description 04/18/2023 1:10 PM PRINTING SERVICES COORDINATOR Ancillary Procedure Department of Ophthalmology in [address] [address] 04/18/2023 1:30 PM PRINTING SERVICES COORDINATOR Appointment Outpatient Procedure Center in [address] [address] Madison Caicedo M.D. [address] [place] [phone] Discharge Disposition: Home or Self Care 05/23/2023 9:45 AM CDT Clinical Communication Virtual Review in [place], [place] [address] [place] [address] 05/26/2023 8:30 AM CDT Ancillary Procedure Department of Ophthalmology in [address] [address] Madison Caicedo M.D. [address] [place] [phone] 05/26/2023 9:00 AM CDT Ancillary Procedure Department of Ophthalmology in [address] [address] Madison Caicedo M.D. [address] [place] [phone] 05/26/2023 9:15 AM CDT Office Visit Department of Ophthalmology in [place], [place] [address] [place] [address] Madison Caicedo M.D. [address] [place] [phone] 05/26/2023 1:20 PM CDT Appointment Outpatient Procedure Center in [place], [place] [address] [place] [address] Madison Caicedo M.D. 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 - 03/15/2023 2:09 PM PRINTING SERVICES COORDINATOR Pre-Procedure Verification Pre-procedure verification conducted to verify [...] mg/mL ??Route: intravitreal, Site: Right Eye ??[facility]: [id number] Balanced salt solution irrigation to injected eye [...] given if requested. Avastin RE Lot # [id number] Exp. 04/08/23 Filemon Mendez M.D. [facility] PROCED URES documented in this encounter Visit Diagnoses Not on filedocumented in this encounter Care Teams Potato Inspector Relationship Specialty Start Date End Date Elsewhere, Pcp PCP - General Family Medicine 02/17/17 documented as of this encounter
--- OUTSIDE RECORDS SUMMARY | 2023-04-12 06:31 | XMS_ITS | Encounter Summary ---
Author Name Unknown Organization [facility] Address [address] [place] [address] Care Team Providers Care Development Mgr Name Role Phone Elsewhere, Pcp Primary Care Provider Unavailabl e Encounter Details Date Type Department Care Team (Latest Contact Info) Description 02/15/2023 2:29 PM MANAGER UNIVERSITY - 02/15/2023 11:59 PM MANAGER UNIVERSITY Hospital Encounter Outpatient Procedure Center in [place], [place] [address] [place] [address] Bebe Duran M.D. [address] [place] [address] Discharge Disposition: Home or Self Care Social [...] (Latest Contact Info) Description 04/18/2023 1:10 PM MANAGER UNIVERSITY Ancillary Procedure Department of Ophthalmology in [address] [address] 04/18/2023 1:30 PM MANAGER UNIVERSITY Appointment Outpatient Procedure Center in [address] [address] Madison Caicedo M.D. [address] [place] [phone] Discharge Disposition: Home or Self Care 05/23/2023 9:45 AM CDT Clinical Communication Virtual Review in [place], [place] 200 [place] [address] 05/26/2023 8:30 AM CDT Ancillary Procedure Department of Ophthalmology in [address] [address] Madison Caicedo M.D. [address] [place] [phone] 05/26/2023 9:00 AM CDT Ancillary Procedure Department of Ophthalmology in [address] [address] Madison Caicedo M.D. [address] [place] [phone] 05/26/2023 9:15 AM CDT Office Visit Department of Ophthalmology in [place], [place] [address] [place] [address] Madison Caicedo M.D. [address] [place] [address] 05/26/2023 1:20 PM CDT Appointment Outpatient Procedure Center in [place], [place] [address] [place] [address] Madison Caicedo M.D. 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 - 02/15/2023 3:11 PM MANAGER UNIVERSITY Pre-Procedure Verification Pre-procedure verification conducted to verify [...] 25 mg/mL ??Route: intravitreal, Site: Right Eye ??[facility]: 84713-720-78 Balanced salt solution irrigation to injected eye [...] given if requested. Avastin RE Lot # [id number] Exp. 03/23/23 Bebe Streeter M.D. [facility] PRO CEDURES documented in this encounter Visit Diagnoses Not on filedocumented in this encounter Care Teams Development Mgr Relationship Specialty Start Date End Date Elsewhere, Pcp PCP - General Family Medicine 02/17/17 documented as of this encounter
--- OUTSIDE RECORDS SUMMARY | 2023-04-12 06:31 | XMS_ITS | Referral Summary ---
Author Name Unknown Organization [facility] Address [address] [place] [address] Care Team Providers Care Remelt Sugar Boiler Name Role Phone Elsewhere, Pcp Primary Care Provider Unavailabl e Source Comments Patient records contain information from all sites at [facility]. For routine questions regarding patient records, call [phone] during business hours, M-F 8:00 AM - 5:00 PM Central Time. Record requests for emergency care only can be directed to [phone] at any time.[facility] Encounters Date Type Department Care Team Description 03/16/2023 Orders Only Department of Ophthalmology in [place], [place] [address] [place] [phone] Sydnie Rivero, C.O.A. 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 Discharge Disposition: Home or Self Care 03/15/2023 Clinical Communication Department of Ophthalmology in [place], [place] [address] [place] [address] Madison Caicedo M.D. 03/15/2023 1:44 PM MILITARY TECHNOLOGY SPECIALIST - 03/15/2023 1:45 PM MILITARY TECHNOLOGY SPECIALIST Hospital Encounter Outpatient Procedure Center in [place], [place] [address] [place] [phone] Madison Caicedo M.D. 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 Discharge Disposition: Home or Self Care 02/15/2023 1:42 PM MILITARY TECHNOLOGY SPECIALIST - 02/15/2023 2:28 PM MILITARY TECHNOLOGY SPECIALIST Hospital Encounter Outpatient Procedure Center in [place], [place] [address] [place] [phone] Madison Caicedo M.D. 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 Discharge Disposition: Home or Self Care 01/18/2023 2:00 PM MILITARY TECHNOLOGY SPECIALIST Ancillary Procedure Department of Ophthalmology in [place], [place] [address] [place] [address] Madison Caicedo M.D. 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 0 03/31/2016 A [facility] Hospital, Clinic, or Other Facility Administered [...] (Latest Contact Info) Description 04/18/2023 1:10 PM MILITARY TECHNOLOGY SPECIALIST Ancillary Procedure Department of Ophthalmology in [place], [place] [address] [place] [phone] 04/18/2023 1:30 PM MILITARY TECHNOLOGY SPECIALIST Appointment Outpatient Procedure Center in [place], [place] [address] [place] [phone] Madison Caicedo M.D. [address] [place] [phone] Discharge Disposition: Home or Self Care 05/23/2023 9:45 AM CDT Clinical Communication Virtual Review in [place], [place] 200 [place] [address] 05/26/2023 8:30 AM CDT Ancillary Procedure Department of Ophthalmology in [place], [place] [address] [place] [phone] Madison Caicedo M.D. [address] [place] [phone] 05/26/2023 9:00 AM CDT Ancillary Procedure Department of Ophthalmology in [address] [address] Madison Caicedo M.D. [address] [place] [phone] 05/26/2023 9:15 AM CDT Office Visit Department of Ophthalmology in [address] [address] Madison Caicedo M.D. [address] [place] [phone] 05/26/2023 1:20 PM CDT Appointment Outpatient Procedure Center in [address] [address] Madison Caicedo M.D. 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) INTRAVITREAL INJECTION, PHARMACOLOGIC AGENT - OD - RIGHT EYE Routine 02/15/2023 2:29 PM MILITARY TECHNOLOGY SPECIALIST 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) INTRAVITREAL INJECTION, PHARMACOLOGIC AGENT - OD - RIGHT EYE - RST GONDA SCHEDULING ORDER Routine 02/15/2023 1:42 PM MILITARY TECHNOLOGY SPECIALIST 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) INTRAVITREAL INJECTION, PHARMACOLOGIC AGENT - OD - RIGHT EYE Routine 01/18/2023 2:54 PM MILITARY TECHNOLOGY SPECIALIST 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 - 03/15/2023 2:09 PM MILITARY TECHNOLOGY SPECIALIST Pre-Procedure Verification Pre-procedure verification conducted to verify [...] 25 mg/mL ??Route: intravitreal, Site: Right Eye ??[facility]: 61748-734-59 Balanced salt solution irrigation to injected eye [...] given if requested. Avastin RE Lot # [id number] Exp. 04/08/23 Filemon Mendez M.D. [facility] PROCED URES * Intravitreal Injection, Pharmacologic Agent - OD - Right Eye (02/15/2023 2:29 PM MILITARY TECHNOLOGY SPECIALIST) Narrative Bebe Duran M.D. - 02/15/2023 3:11 PM MILITARY TECHNOLOGY SPECIALIST Pre-Procedure Verification Pre-procedure verification conducted to verify [...] 25 mg/mL ??Route: intravitreal, Site: Right Eye ??[facility]: 74833-415-33 Balanced salt solution irrigation to injected eye [...] given if requested. Avastin RE Lot # [id number] Exp. 03/23/23 Bebe Streeter M.D. [facility] PRO CEDURES * Intravitreal Injection, Pharmacologic Agent - OD - Right Eye (01/18/2023 2:54 PM MILITARY TECHNOLOGY SPECIALIST) Narrative Rj Bowen M.D. - 01/18/2023 5:29 PM MILITARY TECHNOLOGY SPECIALIST Pre-Procedure Verification Pre-procedure verification conducted to verify [...] 25 mg/mL ??Route: intravitreal, Site: Right Eye ??[facility]: 99077-193-09 Balanced salt solution irrigation to injected eye [...] given if requested. Avastin RE Lot # [id number] Exp. 02/04/23 Rj Bowen M.D. [facility] PROCEDU RES from Last 3 Months Care Teams Remelt Sugar Boiler Relationship Specialty Start Date End Date Elsewhere, Pcp PCP - General Family Medicine 02/17/17
--- OUTSIDE RECORDS SUMMARY | 2023-04-12 06:31 | XMS_ITS | Encounter Summary ---
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 [address] [place] [address] [facility] Referral ID Status Reason Start Date Expiration Date V isits Requested Visits Authorized [id number] Authorized 10/13/2022 10/13/2023 6 6 Encounter Details Date Type Department Care Team (Latest Contact Info) Description 02/15/2023 1:42 PM BANDSAW OPERATOR - 02/15/2023 2:28 PM BANDSAW OPERATOR Hospital Encounter Outpatient Procedure Center in [place], [place] [address] [place] [address] Madison Caicedo M.D. [address] [place] [phone] Diabetes Mellitus Type 2 With Moderate Nonproliferative [...] (Latest Contact Info) Description 04/18/2023 1:10 PM BANDSAW OPERATOR Ancillary Procedure Department of Ophthalmology in [place], [place] [address] [phone] 04/18/2023 1:30 PM BANDSAW OPERATOR Appointment Outpatient Procedure Center in [place], [place] [address] [place] [place] [phone] Madison Caicedo M.D. [address] [place] [phone] Discharge Disposition: Home or Self Care 05/23/2023 9:45 AM CDT Clinical Communication Virtual Review in [place], [place] 200 [place] [address] 05/26/2023 8:30 AM CDT Ancillary Procedure Department of Ophthalmology in [address] [address] Madison Caicedo M.D. [address] [place] [phone] 05/26/2023 9:00 AM CDT Ancillary Procedure Department of Ophthalmology in [place], [place] [address] [place] [place] [phone] Madison Caicedo M.D. [address] [place] [phone] 05/26/2023 9:15 AM CDT Office Visit Department of Ophthalmology in [address] [address] Madison Caicedo M.D. [address] [place] [phone] 05/26/2023 1:20 PM CDT Appointment Outpatient Procedure Center in [address] [address] Madison Caicedo M.D. 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 - 02/15/2023 3:11 PM BANDSAW OPERATOR Pre-Procedure Verification Pre-procedure verification conducted to [...] Right Eye ??[facility]: 30467-652-19 Balanced salt solution irrigation to injected eye [...] given if requested. Avastin RE Lot # [id number] Exp. 03/23/23 Bebe Streeter M.D. OPHTH CLINIC [...] For 365 days Given 03/15/2023 1:47 PM BANDSAW OPERATOR 30 mL Given 02/15/2023 2:30 PM BANDSAW OPERATOR 30 mL Given 01/18/2023 2:55 PM BANDSAW OPERATOR 30 mL carboxymethylcellulose 1 % ophthalmic solution 1 drop (THERATEARS) 1 drop, right eye, As needed, dry eyes, DIRECTED OPHTHALMIC IN OR, Starting on Itzel 06/10/22 at 0918, For 365 days Given 03/15/2023 1:48 PM BANDSAW OPERATOR 1 drop Given 02/15/2023 2:30 PM BANDSAW OPERATOR 1 drop Given 01/18/2023 2:55 PM BANDSAW OPERATOR 1 drop povidone-iodine 5 % ophthalmic solution 1 drop (BETADINE) 1 drop, right eye, As needed, irrigation, DIRECTED OPHTHALMIC IN OR, Starting on Itzel 06/10/22 at 0918, For 365 days, Irrigate ocular and periocular region and leave for 2 mins; then flush with sterile saline solution. Given 03/15/2023 1:48 PM BANDSAW OPERATOR 1 drop Given 02/15/2023 2:30 PM BANDSAW OPERATOR 1 drop Given 01/18/2023 2:55 PM BANDSAW OPERATOR 1 drop proparacaine 0.5 % ophthalmic solution 1 drop (ALCAINE) 1 drop, right eye, As needed, DIRECTED OPHTHALMIC IN OR, Starting on Itzel 06/10/22 at 0918, For 365 days Given 03/15/2023 1:48 PM BANDSAW OPERATOR 1 drop Given 02/15/2023 2:30 PM BANDSAW OPERATOR 1 drop Given 01/18/2023 2:55 PM BANDSAW OPERATOR 1 drop tetracaine (PF) 0.5 % ophthalmic solution 1 drop (ALTACAINE) 1 drop, right eye, As needed, DIRECTED OPHTHALMIC IN OR, Starting on [facility] 06/10/22 at 0918, For 365 days Given 03/15/2023 1:47 PM BANDSAW OPERATOR 1 drop Given 02/15/2023 2:30 PM BANDSAW OPERATOR 1 drop Given 01/18/2023 2:55 PM BANDSAW OPERATOR 1 drop Inactive Administered Medications - up to 3 most recent administrations Medication Order MAR Action Action Date Dose Rate Site bevacizumab intraocular injection 1.25 mg (AVASTIN) 1.25 mg, intravitreal, As needed, DIRECTED OPHTHALMIC IN OR, Starting on Tue02/15/23 at 1511, Inject into right eye. Given 02/15/2023 3:11 PM BANDSAW OPERATOR 1.25 mg Right Eye documented in this encounter Care Teams Waiter/Waitress Formal Relationship Specialty Start Date End Date Elsewhere, Pcp PCP - General Family Medicine 02/17/17 documented as of this encounter
--- OUTSIDE RECORDS SUMMARY | 2023-04-12 06:31 | XMS_ITS ---
Author Name Unknown Organization [facility] Address [address] [place] [address] Care Team Providers Care Fleet Mechanic Name Role Phone Unavailable Unavailable Unavailable Surgery Details Not on file Complications Check Surgery Details section. Procedure Estimated Blood Loss Check Surgery Details section. Procedure Findings Check Surgery Details section. Procedure Specimens Taken Check Surgery Details section.
--- OUTSIDE RECORDS SUMMARY | 2023-04-12 06:31 | XMS_ITS | Encounter Summary ---
Author Name Unknown Organization [facility] Address [address] [place] [address] Care Team Providers Care Tire Service Supervisor Name Role Phone Elsewhere, Pcp Primary Care Provider Unavailabl e Encounter Details Date Type Department Care Team (Latest Contact Info) Description 03/09/2023 Orders Only Department of Ophthalmology in [place], [place] [address] [place] [address] Eliane Laura [address] [place] [address] Diabetes Mellitus Due To Underlying Condition With [...] (Latest Contact Info) Description 04/18/2023 1:10 PM DRONE PILOT Ancillary Procedure Department of Ophthalmology in [place], [place] [address] [place] [address] 04/18/2023 1:30 PM DRONE PILOT Appointment Outpatient Procedure Center in [place], [place] [address] [place] [phone] Madison Caicedo M.D. [address] [place] [phone] Discharge Disposition: Home or Self Care 05/23/2023 9:45 AM CDT Clinical Communication Virtual Review in [place], [place] 200 [place] [address] 05/26/2023 8:30 AM CDT Ancillary Procedure Department of Ophthalmology in [place], [place] [address] [place] [phone] Madison Caicedo M.D. [address] [place] [phone] 05/26/2023 9:00 AM CDT Ancillary Procedure Department of Ophthalmology in [place], [place] [address] [place] [phone] Madison Caicedo M.D. [address] [place] [phone] 05/26/2023 9:15 AM CDT Office Visit Department of Ophthalmology in [address] [address] Madison Caicedo M.D. [address] [place] [phone] 05/26/2023 1:20 PM CDT Appointment Outpatient Procedure Center in [place], [place] [address] [place] [phone] Madison Caicedo M.D. 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
--- OUTSIDE RECORDS SUMMARY | 2023-04-12 06:31 | XMS_ITS | Encounter Summary ---
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 [address] [place] [address] [facility] Referral ID Status Reason Start Date Expiration Date Visits Re quested Visits Authorized [id number] Closed 10/13/2022 10/13/2023 5 5 Encounter Details Date Type Department Care Team (Latest Contact Info) Description 02/15/2023 2:00 PM LUMBER STACKER OPERATOR Ancillary Procedure Department of Ophthalmology in [place], [place] [address] [place] [phone] Madison Caicedo M.D. [address] [place] [address] Diabetes Mellitus Type 2 With [...] (Latest Contact Info) Description 04/18/2023 1:10 PM LUMBER STACKER OPERATOR Ancillary Procedure Department of Ophthalmology in [address] [address] 04/18/2023 1:30 PM LUMBER STACKER OPERATOR Appointment Outpatient Procedure Center in [address] [address] Madison Caicedo M.D. [address] [place] [phone] Discharge Disposition: Home or Self Care 05/23/2023 9:45 AM CDT Clinical Communication Virtual Review in [address] [address] 05/26/2023 8:30 AM CDT Ancillary Procedure Department of Ophthalmology in [address] [address] Madison Caicedo M.D. [address] [place] [phone] 05/26/2023 9:00 AM CDT Ancillary Procedure Department of Ophthalmology in [address] [address] Madison Caicedo M.D. [address] [place] [phone] 05/26/2023 9:15 AM CDT Office Visit Department of Ophthalmology in [address] [address] Madison Caicedo M.D. [address] [place] [phone] 05/26/2023 1:20 PM CDT Appointment Outpatient Procedure Center in [place], [place] [address] [place] [address] Madison Caicedo M.D. 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
--- OUTSIDE RECORDS SUMMARY | 2023-04-12 06:31 | XMS_ITS | Encounter Summary ---
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 [address] [place] [address] [facility] Referral ID Status Reason Start Date Expiration Date Visits Re quested Visits Authorized [id number] Closed 10/13/2022 10/13/2023 5 5 Encounter Details Date Type Department Care Team (Latest Contact Info) Description 03/15/2023 1:40 PM POINT OF CARE SPECIALIST Ancillary Procedure Department of Ophthalmology in [place], [place] [address] [place] [phone] Madison Caicedo M.D. [address] [place] [address] Diabetes Mellitus Type 2 With [...] (Latest Contact Info) Description 04/18/2023 1:10 PM POINT OF CARE SPECIALIST Ancillary Procedure Department of Ophthalmology in [address] [address] 04/18/2023 1:30 PM POINT OF CARE SPECIALIST Appointment Outpatient Procedure Center in [address] [address] Madison Caicedo M.D. [address] [place] [phone] Discharge Disposition: Home or Self Care 05/23/2023 9:45 AM CDT Clinical Communication Virtual Review in [address] [address] 05/26/2023 8:30 AM CDT Ancillary Procedure Department of Ophthalmology in [address] [address] Madison Caicedo M.D. [address] [place] [phone] 05/26/2023 9:00 AM CDT Ancillary Procedure Department of Ophthalmology in [address] [address] Madison Caicedo M.D. [address] [place] [phone] 05/26/2023 9:15 AM CDT Office Visit Department of Ophthalmology in [address] [address] Madison Caicedo M.D. [address] [place] [phone] 05/26/2023 1:20 PM CDT Appointment Outpatient Procedure Center in [place], [place] [address] [place] [address] Madison Caicedo M.D. 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
--- OUTSIDE RECORDS SUMMARY | 2023-04-12 06:31 | XMS_ITS | Encounter Summary ---
Author Name Unknown Organization [facility] Address [address] [place] [address] Care Team Providers Care Shotgun Shell Loading Machine Operator Name Role Phone Elsewhere, Pcp Primary Care Provider Unavailabl e Encounter Details Date Type Department Care Team (Latest Contact Info) Description 02/09/2023 Orders Only Department of Ophthalmology in [place], [place] [address] [place] [address] Eliane Laura [address] [place] [address] Diabetes Mellitus Due To Underlying Condition With [...] (Latest Contact Info) Description 04/18/2023 1:10 PM BRAZER FURNACE Ancillary Procedure Department of Ophthalmology in [place], [place] [address] [place] [address] 04/18/2023 1:30 PM BRAZER FURNACE Appointment Outpatient Procedure Center in [place], [place] [address] [place] [phone] Madison Caicedo M.D. [address] [place] [phone] Discharge Disposition: Home or Self Care 05/23/2023 9:45 AM CDT Clinical Communication Virtual Review in [place], [place] 200 [place] [address] 05/26/2023 8:30 AM CDT Ancillary Procedure Department of Ophthalmology in [place], [place] [address] [place] [phone] Madison Caicedo M.D. [address] [place] [phone] 05/26/2023 9:00 AM CDT Ancillary Procedure Department of Ophthalmology in [place], [place] [address] [place] [phone] Madison Caicedo M.D. [address] [place] [phone] 05/26/2023 9:15 AM CDT Office Visit Department of Ophthalmology in [address] [address] Madison Caicedo M.D. [address] [place] [phone] 05/26/2023 1:20 PM CDT Appointment Outpatient Procedure Center in [place], [place] [address] [place] [phone] Madison Caicedo M.D. 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
--- OUTSIDE RECORDS SUMMARY | 2023-04-12 06:31 | XMS_ITS | Encounter Summary ---
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 [address] [place] [address] [facility] Referral ID Status Reason Start Date Expiration Date V isits Requested Visits Authorized [id number] Authorized 10/13/2022 10/13/2023 6 6 Encounter Details Date Type Department Care Team (Latest Contact Info) Description 03/15/2023 1:44 PM RADIATION OFFICER - 03/15/2023 1:45 PM RADIATION OFFICER Hospital Encounter Outpatient Procedure Center in [place], [place] [address] [place] [address] Madison Caicedo M.D. [address] [place] [phone] Diabetes Mellitus Type 2 With Moderate Nonproliferative [...] (Latest Contact Info) Description 04/18/2023 1:10 PM RADIATION OFFICER Ancillary Procedure Department of Ophthalmology in [place], [place] [address] [place] [phone] 04/18/2023 1:30 PM RADIATION OFFICER Appointment Outpatient Procedure Center in [place], [place] [address] [place] [phone] Madison Caicedo M.D. [address] [place] [phone] Discharge Disposition: Home or Self Care 05/23/2023 9:45 AM CDT Clinical Communication Virtual Review in [place], [place] 200 [place] [address] 05/26/2023 8:30 AM CDT Ancillary Procedure Department of Ophthalmology in [address] [address] Madison Caicedo M.D. [address] [place] [phone] 05/26/2023 9:00 AM CDT Ancillary Procedure Department of Ophthalmology in [place], [place] [address] [place] [phone] Madison Caicedo M.D. [address] [place] [phone] 05/26/2023 9:15 AM CDT Office Visit Department of Ophthalmology in [address] [address] Madison Caicedo M.D. [address] [place] [phone] 05/26/2023 1:20 PM CDT Appointment Outpatient Procedure Center in [address] [address] Madison Caicedo M.D. 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 - 03/15/2023 2:09 PM RADIATION OFFICER Pre-Procedure Verification Pre-procedure verification conducted to verify [...] 25 mg/mL ??Route: intravitreal, Site: Right Eye ??[facility]: 90019-610-52 Balanced salt solution irrigation to injected eye [...] given if requested. Avastin RE Lot # [id number] Exp. 04/08/23 Filemon Mendez M.D. OPHTH CLINIC [...] needed, DIRECTED OPHTHALMIC IN OR, Starting on [facility] 06/10/22 at 0918, For 365 days Given 03/15/2023 1:47 PM RADIATION OFFICER 30 mL Given 02/15/2023 2:30 PM RADIATION OFFICER 30 mL Given 01/18/2023 2:55 PM RADIATION OFFICER 30 mL carboxymethylcellulose 1 % ophthalmic solution 1 drop (THERATEARS) 1 drop, right eye, As needed, dry eyes, DIRECTED OPHTHALMIC IN OR, Starting on [facility] 06/10/22 at 0918, For 365 days Given 03/15/2023 1:48 PM RADIATION OFFICER 1 drop Given 02/15/2023 2:30 PM RADIATION OFFICER 1 drop Given 01/18/2023 2:55 PM RADIATION OFFICER 1 drop povidone-iodine 5 % ophthalmic solution 1 drop (BETADINE) 1 drop, right eye, As needed, irrigation, DIRECTED OPHTHALMIC IN OR, Starting on [facility] 06/10/22 at 0918, For 365 days, Irrigate ocular and periocular region and leave for 2 mins; then flush with sterile saline solution. Given 03/15/2023 1:48 PM RADIATION OFFICER 1 drop Given 02/15/2023 2:30 PM RADIATION OFFICER 1 drop Given 01/18/2023 2:55 PM RADIATION OFFICER 1 drop proparacaine 0.5 % ophthalmic solution 1 drop (ALCAINE) 1 drop, right eye, As needed, DIRECTED OPHTHALMIC IN OR, Starting on [facility] 06/10/22 at 0918, For 365 days Given 03/15/2023 1:48 PM RADIATION OFFICER 1 drop Given 02/15/2023 2:30 PM RADIATION OFFICER 1 drop Given 01/18/2023 2:55 PM RADIATION OFFICER 1 drop tetracaine (PF) 0.5 % ophthalmic solution 1 drop (ALTACAINE) 1 drop, right eye, As needed, DIRECTED OPHTHALMIC IN OR, Starting on [facility] 06/10/22 at 0918, For 365 days Given 03/15/2023 1:47 PM RADIATION OFFICER 1 drop Given 02/15/2023 2:30 PM RADIATION OFFICER 1 drop Given 01/18/2023 2:55 PM RADIATION OFFICER 1 drop Inactive Administered Medications - up to 3 most recent administrations Medication Order MAR Action Action Date Dose Rate Site bevacizumab intraocular injection 1.25 mg (AVASTIN) 1.25 mg, intravitreal, As needed, DIRECTED OPHTHALMIC IN OR, Starting on Tue03/15/23 at 1409, Inject into right eye. Given 03/15/2023 2:09 PM RADIATION OFFICER 1.25 mg Right Eye documented in this encounter Care Teams Remotely Piloted Vehicle Controller Relationship Specialty Start Date End Date Elsewhere, Pcp PCP - General Family Medicine 02/17/17 documented as of this encounter
--- OUTSIDE RECORDS SUMMARY | 2023-04-12 06:32 | XMS_ITS | Encounter Summary ---
Author Name Unknown Organization 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 [address] [place] [address] [facility] Referral ID Status Reason Start Date Expiration Date Visits Re quested Visits Authorized [id number] Closed 10/13/2022 10/13/2023 5 5 Encounter Details Date Type Department Care Team (Latest Contact Info) Description 01/18/2023 2:00 PM FLOTATION TANK OPERATOR Ancillary Procedure Department of Ophthalmology in [place], [place] [address] [place] [phone] Madison Caicedo M.D. [address] [place] [address] Diabetes Mellitus Type 2 With [...] (Latest Contact Info) Description 04/18/2023 1:10 PM FLOTATION TANK OPERATOR Ancillary Procedure Department of Ophthalmology in [address] [address] 04/18/2023 1:30 PM FLOTATION TANK OPERATOR Appointment Outpatient Procedure Center in [address] [address] Madison Caicedo M.D. [address] [place] [phone] Discharge Disposition: Home or Self Care 05/23/2023 9:45 AM CDT Clinical Communication Virtual Review in [address] [address] 05/26/2023 8:30 AM CDT Ancillary Procedure Department of Ophthalmology in [address] [address] Madison Caicedo M.D. [address] [place] [phone] 05/26/2023 9:00 AM CDT Ancillary Procedure Department of Ophthalmology in [address] [address] Madison Caicedo M.D. [address] [place] [phone] 05/26/2023 9:15 AM CDT Office Visit Department of Ophthalmology in [address] [address] Madison Caicedo M.D. [address] [place] [phone] 05/26/2023 1:20 PM CDT Appointment Outpatient Procedure Center in [place], [place] [address] [place] [address] Madison Caicedo M.D. 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
--- OUTSIDE RECORDS SUMMARY | 2023-04-12 06:32 | XMS_ITS | Encounter Summary ---
Author Name Unknown Organization [facility] Address [address] [place] [address] Care Team Providers Care Etcher Hand Name Role Phone Elsewhere, Pcp Primary Care Provider Unavailabl e Encounter Details Date Type Department Care Team (Latest Contact Info) Description 10/13/2022 12:39 PM CDT - 10/13/2022 11:59 PM CDT Hospital Encounter Outpatient Procedure Center in [place], [place] [address] [place] [address] Filemon Mendez M.D. [address] [place] [address] Discharge Disposition: Home or Self Care Social [...] (Latest Contact Info) Description 04/18/2023 1:10 PM BIRD CAGE ASSEMBLER Ancillary Procedure Department of Ophthalmology in [address] [address] 04/18/2023 1:30 PM BIRD CAGE ASSEMBLER Appointment Outpatient Procedure Center in [address] [address] Madison Caicedo M.D. [address] [place] [phone] Discharge Disposition: Home or Self Care 05/23/2023 9:45 AM CDT Clinical Communication Virtual Review in [place], [place] 200 [place] [address] 05/26/2023 8:30 AM CDT Ancillary Procedure Department of Ophthalmology in [address] [address] Madison Caicedo M.D. [address] [place] [phone] 05/26/2023 9:00 AM CDT Ancillary Procedure Department of Ophthalmology in [address] [address] Madison Caicedo M.D. [address] [place] [phone] 05/26/2023 9:15 AM CDT Office Visit Department of Ophthalmology in [place], [place] [address] [place] [address] Madison Caicedo M.D. [address] [place] [address] 05/26/2023 1:20 PM CDT Appointment Outpatient Procedure Center in [place], [place] [address] [place] [address] Madison Caicedo M.D. [address] [place] [address] documented as of this encounter Procedures Procedure [...] mg/mL ??Route: intravitreal, Site: Right Eye ??[facility]: [address]-477-97 Balanced salt solution irrigation to injected eye [...] and return schedule given if requested. Lot [id number] exp 11/19/2022 Filemon Mendez M.D. [facility] PROCED URES documented in this encounter Visit Diagnoses Not on filedocumented in this encounter Care Teams Etcher Hand Relationship Specialty Start Date End Date Elsewhere, Pcp PCP - General Family Medicine 02/17/17 documented as of this encounter
--- OUTSIDE RECORDS SUMMARY | 2023-04-12 06:32 | XMS_ITS | Encounter Summary ---
Author Name Unknown Organization [facility] Address [address] [place] [address] Care Team Providers Care Cloud Solutions Architect Name Role Phone Elsewhere, Pcp Primary [...] (Latest Contact Info) Description 04/18/2023 1:10 PM VENDING TECHNICIAN Ancillary Procedure Department of Ophthalmology in [place], [place] [address] [place] [phone] 04/18/2023 1:30 PM VENDING TECHNICIAN Appointment Outpatient Procedure Center in [place], [place] [address] [place] [phone] Madison Caicedo M.D. [address] [place] [phone] Discharge Disposition: Home or Self Care 05/23/2023 9:45 AM CDT Clinical Communication Virtual Review in [place], [place] 200 [place] [address] 05/26/2023 8:30 AM CDT Ancillary Procedure Department of Ophthalmology in [place], [place] [address] [place] [phone] Madison Caicedo M.D. [address] [place] [phone] 05/26/2023 9:00 AM CDT Ancillary Procedure Department of Ophthalmology in [address] [address] Madison Caicedo M.D. [address] [place] [phone] 05/26/2023 9:15 AM CDT Office Visit Department of Ophthalmology in [address] [address] Madison Caicedo M.D. [address] [place] [phone] 05/26/2023 1:20 PM CDT Appointment Outpatient Procedure Center in [address] [address] Madison Caicedo M.D. [address] [place] [phone] documented as of this encounter Procedures Procedure [...] on filedocumented in this encounter Care Teams Cloud Solutions Architect Relationship Specialty Start Date End Date Elsewhere, Pcp PCP - General Family Medicine 02/17/17 documented as of this encounter
--- OUTSIDE RECORDS SUMMARY | 2023-04-12 06:32 | XMS_ITS | Encounter Summary ---
Author Name Unknown Organization [facility] Address [address] [place] [address] Care Team Providers Care Emergency Service Worker Name Role Phone Elsewhere, Pcp Primary Care Provider Unavailabl e Encounter Details Date Type Department Care Team (Latest Contact Info) Description 01/18/2023 2:54 PM MIXING MACHINE TENDER - 01/18/2023 11:59 PM MIXING MACHINE TENDER Hospital Encounter Outpatient Procedure Center in [place], [place] [address] [place] [address] Rj Bowen M.D. [address] [place] [address] Discharge Disposition: Home or Self Care Social [...] (Latest Contact Info) Description 04/18/2023 1:10 PM MIXING MACHINE TENDER Ancillary Procedure Department of Ophthalmology in [address] [address] 04/18/2023 1:30 PM MIXING MACHINE TENDER Appointment Outpatient Procedure Center in [address] [address] Madison Caicedo M.D. [address] [place] [phone] Discharge Disposition: Home or Self Care 05/23/2023 9:45 AM CDT Clinical Communication Virtual Review in [place], [place] 200 [place] [address] 05/26/2023 8:30 AM CDT Ancillary Procedure Department of Ophthalmology in [address] [address] Madison Caicedo M.D. [address] [place] [phone] 05/26/2023 9:00 AM CDT Ancillary Procedure Department of Ophthalmology in [address] [address] Madison Caicedo M.D. [address] [place] [phone] 05/26/2023 9:15 AM CDT Office Visit Department of Ophthalmology in [place], [place] [address] [place] [address] Madison Caicedo M.D. [address] [place] [phone] 05/26/2023 1:20 PM CDT Appointment Outpatient Procedure Center in [place], [place] [address] [place] [address] Madison Caicedo M.D. 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 - 01/18/2023 5:29 PM MIXING MACHINE TENDER Pre-Procedure Verification Pre-procedure verification conducted to verify [...] Site: Right Eye ??[facility]: 37515-675-43 Balanced salt solution irrigation to injected eye [...] given if requested. Avastin RE Lot # [id number] Exp. 02/04/23 Rj oBwen M.D. [facility] PROCEDU RES documented in this encounter Visit Diagnoses Not on filedocumented in this encounter Care Teams Emergency Service Worker Relationship Specialty Start Date End Date Elsewhere, Pcp PCP - General Family Medicine 02/17/17 documented as of this encounter
--- OUTSIDE RECORDS SUMMARY | 2023-04-12 06:32 | XMS_ITS | Encounter Summary ---
Author Name Unknown Organization [facility] Address [address] [place] [address] Care Team Providers Care Building Custodian Name Role Phone Elsewhere, Pcp Primary Care Provider Unavailabl e Encounter Details Date Type Department Care Team (Latest Contact Info) Description 01/12/2023 Orders Only Department of Ophthalmology in [place], [place] [address] [place] [address] Eliane Laura [address] [place] [address] Diabetes Mellitus Due To Underlying Condition With [...] (Latest Contact Info) Description 04/18/2023 1:10 PM VICE PRESIDENT Ancillary Procedure Department of Ophthalmology in [place], [place] [address] [place] [address] 04/18/2023 1:30 PM VICE PRESIDENT Appointment Outpatient Procedure Center in [place], [place] [address] [place] [phone] Madison Caicedo M.D. [address] [place] [phone] Discharge Disposition: Home or Self Care 05/23/2023 9:45 AM CDT Clinical Communication Virtual Review in [place], [place] 200 [place] [address] 05/26/2023 8:30 AM CDT Ancillary Procedure Department of Ophthalmology in [place], [place] [address] [place] [phone] Madison Caicedo M.D. [address] [place] [phone] 05/26/2023 9:00 AM CDT Ancillary Procedure Department of Ophthalmology in [place], [place] [address] [place] [phone] Madison Caicedo M.D. [address] [place] [phone] 05/26/2023 9:15 AM CDT Office Visit Department of Ophthalmology in [address] [address] Madison Caicedo M.D. [address] [place] [phone] 05/26/2023 1:20 PM CDT Appointment Outpatient Procedure Center in [place], [place] [address] [place] [phone] Mdaison Caicedo M.D. 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
--- OUTSIDE RECORDS SUMMARY | 2023-04-12 06:32 | XMS_ITS | Encounter Summary ---
Author Name Unknown Organization [facility] Address [address] [place] [address] Care Team Providers Care Executive Director Name Role Phone Elsewhere, Pcp Primary Care Provider Unavailabl e Encounter Details Date Type Department Care Team (Latest Contact Info) Description 11/17/2022 3:03 PM CDT - 11/17/2022 11:59 PM CDT Hospital Encounter Outpatient Procedure Center in [place], [place] [address] [place] [address] Benitez Yuan M.D. [address] [place] [address] Discharge Disposition: Home or Self Care Social [...] (Latest Contact Info) Description 04/18/2023 1:10 PM SALES AND SERVICE REPRESENTATIVE Ancillary Procedure Department of Ophthalmology in [address] [address] 04/18/2023 1:30 PM SALES AND SERVICE REPRESENTATIVE Appointment Outpatient Procedure Center in [address] [address] Madison Caicedo M.D. [address] [place] [phone] Discharge Disposition: Home or Self Care 05/23/2023 9:45 AM CDT Clinical Communication Virtual Review in [place], [place] 200 [place] [address] 05/26/2023 8:30 AM CDT Ancillary Procedure Department of Ophthalmology in [address] [address] Madison Caicedo M.D. [address] [place] [phone] 05/26/2023 9:00 AM CDT Ancillary Procedure Department of Ophthalmology in [address] [address] Madison Caicedo M.D. [address] [place] [phone] 05/26/2023 9:15 AM CDT Office Visit Department of Ophthalmology in [place], [place] [address] [place] [address] Madison Caicedo M.D. [address] [place] [address] 05/26/2023 1:20 PM CDT Appointment Outpatient Procedure Center in [place], [place] [address] [place] [address] Madison Caicedo M.D. [address] [place] [address] documented as of this encounter Procedures Procedure [...] 25 mg/mL ??Route: intravitreal, Site: Right Eye ??[facility]: 14997-205-35 Balanced salt solution irrigation to injected eye [...] and return schedule given if requested. Lot [id number] exp 12/28/2022 Benitez Yuan M.D. [facility] PRO CEDURES documented in this encounter Visit Diagnoses Not on filedocumented in this encounter Care Teams Executive Director Relationship Specialty Start Date End Date Elsewhere, Pcp PCP - General Family Medicine 02/17/17 documented as of this encounter
--- OUTSIDE RECORDS SUMMARY | 2023-04-12 06:32 | XMS_ITS | Encounter Summary ---
Author Name Unknown Organization [facility] Address [address] [place] [address] Care Team Providers Care Plant Utility Person Name Role Phone Elsewhere, Pcp Primary Care Provider Unavailabl e Encounter Details Date Type Department Care Team (Latest Contact Info) Description 12/15/2022 Orders Only Department of Ophthalmology in [place], [place] [address] [place] [address] Eliane Laura [address] [place] [address] Diabetes Mellitus Due To Underlying Condition With [...] (Latest Contact Info) Description 04/18/2023 1:10 PM INFORMATION SYSTEMS SECURITY SPECIALIST Ancillary Procedure Department of Ophthalmology in [place], [place] [address] [place] [address] 04/18/2023 1:30 PM INFORMATION SYSTEMS SECURITY SPECIALIST Appointment Outpatient Procedure Center in [place], [place] [address] [place] [phone] Madison Caicedo M.D. [address] [place] [phone] Discharge Disposition: Home or Self Care 05/23/2023 9:45 AM CDT Clinical Communication Virtual Review in [place], [place] 200 [place] [address] 05/26/2023 8:30 AM CDT Ancillary Procedure Department of Ophthalmology in [place], [place] [address] [place] [phone] Madison Caicedo M.D. [address] [place] [phone] 05/26/2023 9:00 AM CDT Ancillary Procedure Department of Ophthalmology in [place], [place] [address] [place] [phone] Madison Caicedo M.D. [address] [place] [phone] 05/26/2023 9:15 AM CDT Office Visit Department of Ophthalmology in [address] [address] Madison Caicedo M.D. [address] [place] [phone] 05/26/2023 1:20 PM CDT Appointment Outpatient Procedure Center in [place], [place] [address] [place] [phone] Madison Caicedo M.D. 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
--- OUTSIDE RECORDS SUMMARY | 2023-04-12 06:32 | XMS_ITS | Encounter Summary ---
Author Name Unknown Organization [facility] Address [address] [place] [address] Care Team Providers Care Drawing Hand Name Role Phone Elsewhere, Pcp Primary [...] INJECTION INTRAVITREAL Madison Caicedo M.D. 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 [address] [place] [address] [facility] Referral ID Status Reason Start Date Expiration Date V isits Requested Visits Authorized [id number] Authorized 10/13/2022 10/13/2023 6 6 Encounter Details Date Type Department Care Team (Latest Contact Info) Description 11/17/2022 2:26 PM CDT - 11/17/2022 3:02 PM CDT Hospital Encounter Outpatient Procedure Center in [place], [place] [address] [place] [address] Madison Caicedo M.D. [address] [place] [address] Diabetes Mellitus Type 2 With Moderate Nonproliferative [...] (Latest Contact Info) Description 04/18/2023 1:10 PM TYPEWRITER RIBBON WINDER Ancillary Procedure Department of Ophthalmology in [place], [place] [address] [place] [phone] 04/18/2023 1:30 PM TYPEWRITER RIBBON WINDER Appointment Outpatient Procedure Center in [address] [address] Madison Caicedo M.D. [address] [place] [phone] Discharge Disposition: Home or Self Care 05/23/2023 9:45 AM CDT Clinical Communication Virtual Review in [place], [place] 200 [place] [address] 05/26/2023 8:30 AM CDT Ancillary Procedure Department of Ophthalmology in [address] [address] Madison Caicedo M.D. [address] [place] [phone] 05/26/2023 9:00 AM CDT Ancillary Procedure Department of Ophthalmology in [address] [address] Madison Caicedo M.D. [address] [place] [phone] 05/26/2023 9:15 AM CDT Office Visit Department of Ophthalmology in [address] [address] Madison Caicedo M.D. [address] [place] [phone] 05/26/2023 1:20 PM CDT Appointment Outpatient Procedure Center in [address] [address] Madison Caicedo M.D. [address] [place] [phone] documented as of this encounter Procedures Procedure [...] intravitreal, Site: Right Eye ??[facility]: 61889-435-49 Balanced salt solution irrigation to injected eye [...] and return schedule given if requested. Lot [id number] exp 12/28/2022 Benitez Yuan M.D. [facility] [...] For 365 days Given 03/15/2023 1:47 PM TYPEWRITER RIBBON WINDER 30 mL Given 02/15/2023 2:30 PM TYPEWRITER RIBBON WINDER 30 mL Given 01/18/2023 2:55 PM TYPEWRITER RIBBON WINDER 30 mL carboxymethylcellulose 1 % ophthalmic solution 1 drop (THERATEARS) 1 drop, right eye, As needed, dry eyes, DIRECTED OPHTHALMIC IN OR, Starting on Itzel 06/10/22 at 0918, For 365 days Given 03/15/2023 1:48 PM TYPEWRITER RIBBON WINDER 1 drop Given 02/15/2023 2:30 PM TYPEWRITER RIBBON WINDER 1 drop Given 01/18/2023 2:55 PM TYPEWRITER RIBBON WINDER 1 drop povidone-iodine 5 % ophthalmic solution 1 drop (BETADINE) 1 drop, right eye, As needed, irrigation, DIRECTED OPHTHALMIC IN OR, Starting on Itzel 06/10/22 at 0918, For 365 days, Irrigate ocular and periocular region and leave for 2 mins; then flush with sterile saline solution. Given 03/15/2023 1:48 PM TYPEWRITER RIBBON WINDER 1 drop Given 02/15/2023 2:30 PM TYPEWRITER RIBBON WINDER 1 drop Given 01/18/2023 2:55 PM TYPEWRITER RIBBON WINDER 1 drop proparacaine 0.5 % ophthalmic solution 1 drop (ALCAINE) 1 drop, right eye, As needed, DIRECTED OPHTHALMIC IN OR, Starting on Itzel 06/10/22 at 0918, For 365 days Given 03/15/2023 1:48 PM TYPEWRITER RIBBON WINDER 1 drop Given 02/15/2023 2:30 PM TYPEWRITER RIBBON WINDER 1 drop Given 01/18/2023 2:55 PM TYPEWRITER RIBBON WINDER 1 drop tetracaine (PF) 0.5 % ophthalmic solution 1 drop (ALTACAINE) 1 drop, right eye, As needed, DIRECTED OPHTHALMIC IN OR, Starting on [facility] 06/10/22 at 0918, For 365 days Given 03/15/2023 1:47 PM TYPEWRITER RIBBON WINDER 1 drop Given 02/15/2023 2:30 PM TYPEWRITER RIBBON WINDER 1 drop Given 01/18/2023 2:55 PM TYPEWRITER RIBBON WINDER 1 drop Inactive Administered Medications - up to 3 most recent administrations Medication Order MAR Action Action Date Dose Rate Site bevacizumab intraocular injection 1.25 mg (AVASTIN) 1.25 mg, intravitreal, As needed, DIRECTED OPHTHALMIC IN OR, Starting on Tue11/17/22 at 1640, Inject into right eye. Given 11/17/2022 4:40 PM CDT 1.25 mg Right Eye documented in this encounter Care Teams Drawing Hand Relationship Specialty Start Date End Date Elsewhere, Pcp PCP - General Family Medicine 02/17/17 documented as of this encounter
--- OUTSIDE RECORDS SUMMARY | 2023-04-12 06:32 | XMS_ITS | Encounter Summary ---
Author Name Unknown Organization [facility] Address [address] [place] [address] Care Team Providers Care Harness Placer Name Role Phone Elsewhere, Pcp Primary Care Provider Unavailabl e Reason for Referral * Outpatient (Routine) - Authorized Specialty Diagnoses / Procedures Referred By Araceli graza Referred To Contact Ophthalmology Madison Caicedo M.D. [address] [place] [address] [facility] Referral ID Status Reason Start Date Expiration Date V isits Requested Visits Authorized [id number] Authorized 10/13/2022 10/12/2025 1 1 Scheduling Instructions Plan: 10/13/2022 RIGHT EYE: Avastin right eye for Diabetic Macular Edema Follow up for 5 more Avastin in the right eye every 4-5 weeks. 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 [address] [place] [address] [facility] Referral ID Status Reason Start Date Expiration Date Visits Re quested Visits Authorized [id number] Closed 10/13/2022 10/13/2023 5 5 Encounter Details Date Type Department Care Team (Latest Contact Info) Description 10/13/2022 Orders Only Department of Ophthalmology in [place], [place] [address] [place] [phone] Yuko Desai, EMT Diabetes Mellitus Type 2 [...] (Latest Contact Info) Description 04/18/2023 1:10 PM DIRECTOR UNDERWRITER SALES Ancillary Procedure Department of Ophthalmology in [place], [place] [address] [place] [address] 04/18/2023 1:30 PM DIRECTOR UNDERWRITER SALES Appointment Outpatient Procedure Center in [place], [place] [address] [place] [phone] Madison Caicedo M.D. [address] [place] [phone] Discharge Disposition: Home or Self Care 05/23/2023 9:45 AM CDT Clinical Communication Virtual Review in [place], [place] 200 [place] [address] 05/26/2023 8:30 AM CDT Ancillary Procedure Department of Ophthalmology in [place], [place] [address] [place] [phone] Madison Caicedo M.D. [address] [place] [phone] 05/26/2023 9:00 AM CDT Ancillary Procedure Department of Ophthalmology in [place], [place] [address] [place] [phone] Madison Caicedo M.D. [address] [place] [phone] 05/26/2023 9:15 AM CDT Office Visit Department of Ophthalmology in [place], [place] [address] [place] [phone] Madison Caicedo M.D. [address] [place] [phone] 05/26/2023 1:20 PM CDT Appointment Outpatient Procedure Center in [place], [place] [address] [place] [phone] Madison Caicedo M.D. [address] [place] [phone] Scheduled Orders Name Type Priority Associated Diagnoses [...] Primary documented in this encounter Care Teams Harness Placer Relationship Specialty Start Date End Date Elsewhere, Pcp PCP - General Family Medicine 02/17/17 documented as of this encounter
--- OUTSIDE RECORDS SUMMARY | 2023-04-12 06:32 | XMS_ITS | Encounter Summary ---
Author Name Unknown Organization [facility] Address [address] [place] [address] Care Team Providers Care Journal Clerk Name Role Phone Elsewhere, Pcp Primary Care Provider Unavailabl e Encounter Details Date Type Department Care Team (Latest Contact Info) Description 10/13/2022 9:30 AM CDT Ancillary Procedure Department of Ophthalmology in [place], [place] [address] [place] [address] Madison Caicedo M.D. [address] [place] [phone] Diabetes Mellitus Type 2 With Mild Nonproliferative [...] (Latest Contact Info) Description 04/18/2023 1:10 PM RECRUITING ASSISTANT Ancillary Procedure Department of Ophthalmology in [place], [place] [address] [place] [address] 04/18/2023 1:30 PM RECRUITING ASSISTANT Appointment Outpatient Procedure Center in [place], [place] [address] [place] [phone] Madison Caicedo M.D. [address] [place] [phone] Discharge Disposition: Home or Self Care 05/23/2023 9:45 AM CDT Clinical Communication Virtual Review in [place], [place] 200 [place] [address] 05/26/2023 8:30 AM CDT Ancillary Procedure Department of Ophthalmology in [place], [place] [address] [place] [phone] Madison Caicedo M.D. [address] [place] [phone] 05/26/2023 9:00 AM CDT Ancillary Procedure Department of Ophthalmology in [place], [place] [address] [place] [phone] Madison Caicedo M.D. [address] [place] [phone] 05/26/2023 9:15 AM CDT Office Visit Department of Ophthalmology in [address] [address] Madison Caicedo M.D. [address] [place] [phone] 05/26/2023 1:20 PM CDT Appointment Outpatient Procedure Center in [address] [address] Madison Caicedo M.D. [address] [place] [phone] documented as of this encounter Procedures Procedure [...] (HCC) documented in this encounter Care Teams Journal Clerk Relationship Specialty Start Date End Date Elsewhere, Pcp PCP - General Family Medicine 02/17/17 documented as of this encounter
--- OUTSIDE RECORDS SUMMARY | 2023-04-12 06:32 | XMS_ITS | Encounter Summary ---
Author Name Unknown Organization [facility] Address [address] [place] [address] Care Team Providers Care Window Dresser Name Role Phone Elsewhere, Pcp Primary Care [...] INJECTION INTRAVITREAL Madison Caicedo M.D. 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 [address] [place] [address] [facility] Referral ID Status Reason Start Date Expiration Date V isits Requested Visits Authorized [id number] Authorized 10/13/2022 10/13/2023 6 6 Encounter Details Date Type Department Care Team (Latest Contact Info) Description 12/21/2022 2:16 PM CDT - 12/21/2022 2:49 PM CDT Hospital Encounter Outpatient Procedure Center in [place], [place] [address] [place] [address] Madison Caicedo M.D. [address] [place] [address] Diabetes Mellitus Type 2 With Moderate Nonproliferative [...] (Latest Contact Info) Description 04/18/2023 1:10 PM BURN TABLE OPERATOR Ancillary Procedure Department of Ophthalmology in [place], [place] [address] [place] [phone] 04/18/2023 1:30 PM BURN TABLE OPERATOR Appointment Outpatient Procedure Center in [address] [address] Madison Caicedo M.D. [address] [place] [phone] Discharge Disposition: Home or Self Care 05/23/2023 9:45 AM CDT Clinical Communication Virtual Review in [place], [place] 200 [place] [address] 05/26/2023 8:30 AM CDT Ancillary Procedure Department of Ophthalmology in [address] [address] Madison Caicedo M.D. [address] [place] [phone] 05/26/2023 9:00 AM CDT Ancillary Procedure Department of Ophthalmology in [address] [address] Madison Caicedo M.D. [address] [place] [phone] 05/26/2023 9:15 AM CDT Office Visit Department of Ophthalmology in [address] [address] Mdaison Caicedo M.D. [address] [place] [phone] 05/26/2023 1:20 PM CDT Appointment Outpatient Procedure Center in [address] [address] Madison Caicedo M.D. [address] [place] [phone] documented as of this encounter Procedures Procedure [...] intravitreal, Site: Right Eye ??[facility]: 07071-111-21 Balanced salt solution irrigation to injected eye [...] given if requested. Avastin RE Lot # [id number] Exp. 01/13/23 Filemon Mendez M.D. OPHTH CLINIC [...] For 365 days Given 03/15/2023 1:47 PM BURN TABLE OPERATOR 30 mL Given 02/15/2023 2:30 PM BURN TABLE OPERATOR 30 mL Given 01/18/2023 2:55 PM BURN TABLE OPERATOR 30 mL carboxymethylcellulose 1 % ophthalmic solution 1 drop (THERATEARS) 1 drop, right eye, As needed, dry eyes, DIRECTED OPHTHALMIC IN OR, Starting on Itzel 06/10/22 at 0918, For 365 days Given 03/15/2023 1:48 PM BURN TABLE OPERATOR 1 drop Given 02/15/2023 2:30 PM BURN TABLE OPERATOR 1 drop Given 01/18/2023 2:55 PM BURN TABLE OPERATOR 1 drop povidone-iodine 5 % ophthalmic solution 1 drop (BETADINE) 1 drop, right eye, As needed, irrigation, DIRECTED OPHTHALMIC IN OR, Starting on Itzel 06/10/22 at 0918, For 365 days, Irrigate ocular and periocular region and leave for 2 mins; then flush with sterile saline solution. Given 03/15/2023 1:48 PM BURN TABLE OPERATOR 1 drop Given 02/15/2023 2:30 PM BURN TABLE OPERATOR 1 drop Given 01/18/2023 2:55 PM BURN TABLE OPERATOR 1 drop proparacaine 0.5 % ophthalmic solution 1 drop (ALCAINE) 1 drop, right eye, As needed, DIRECTED OPHTHALMIC IN OR, Starting on Itzel 06/10/22 at 0918, For 365 days Given 03/15/2023 1:48 PM BURN TABLE OPERATOR 1 drop Given 02/15/2023 2:30 PM BURN TABLE OPERATOR 1 drop Given 01/18/2023 2:55 PM BURN TABLE OPERATOR 1 drop tetracaine (PF) 0.5 % ophthalmic solution 1 drop (ALTACAINE) 1 drop, right eye, As needed, DIRECTED OPHTHALMIC IN OR, Starting on Itzel 06/10/22 at 0918, For 365 days Given 03/15/2023 1:47 PM BURN TABLE OPERATOR 1 drop Given 02/15/2023 2:30 PM BURN TABLE OPERATOR 1 drop Given 01/18/2023 2:55 PM BURN TABLE OPERATOR 1 drop Inactive Administered Medications - up to 3 most recent administrations Medication Order MAR Action Action Date Dose Rate Site bevacizumab intraocular injection 1.25 mg (AVASTIN) 1.25 mg, intravitreal, As needed, DIRECTED OPHTHALMIC IN OR, Starting on Tue12/21/22 at 1618, Inject into right eye. Given 12/21/2022 4:18 PM CDT 1.25 mg Right Eye documented in this encounter Care Teams Window Dresser Relationship Specialty Start Date End Date Elsewhere, Pcp PCP - General Family Medicine 02/17/17 documented as of this encounter
--- OUTSIDE RECORDS SUMMARY | 2023-04-12 06:32 | XMS_ITS | Encounter Summary ---
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 [address] [place] [address] [facility] Referral ID Status Reason Start Date Expiration Date Visits Re quested Visits Authorized [id number] Closed 10/13/2022 10/13/2023 5 5 Encounter Details Date Type Department Care Team (Latest Contact Info) Description 12/21/2022 2:20 PM CDT Ancillary Procedure Department of Ophthalmology in [place], [place] [address] [place] [phone] Madison Caicedo M.D. [address] [place] [address] Diabetes Mellitus Type 2 With [...] (Latest Contact Info) Description 04/18/2023 1:10 PM FORESTRY FIRE AID Ancillary Procedure Department of Ophthalmology in [address] [address] 04/18/2023 1:30 PM FORESTRY FIRE AID Appointment Outpatient Procedure Center in [address] [address] Madison Caicedo M.D. [address] [place] [phone] Discharge Disposition: Home or Self Care 05/23/2023 9:45 AM CDT Clinical Communication Virtual Review in [address] [address] 05/26/2023 8:30 AM CDT Ancillary Procedure Department of Ophthalmology in [address] [address] Madison Caicedo M.D. [address] [place] [phone] 05/26/2023 9:00 AM CDT Ancillary Procedure Department of Ophthalmology in [address] [address] Madison Caicedo M.D. [address] [place] [phone] 05/26/2023 9:15 AM CDT Office Visit Department of Ophthalmology in [address] [address] Madison Caicedo M.D. [address] [place] [phone] 05/26/2023 1:20 PM CDT Appointment Outpatient Procedure Center in [place], [place] [address] [place] [address] Madison Caicedo M.D. 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
--- OUTSIDE RECORDS SUMMARY | 2023-04-12 06:32 | XMS_ITS | Encounter Summary ---
Author Name Unknown Organization [facility] Address [address] [place] [address] Care Team Providers Care Nurse Advisor Name Role Phone Elsewhere, Pcp Primary Care Provider Unavailabl e Encounter Details Date Type Department Care Team (Latest Contact Info) Description 12/21/2022 2:50 PM CDT - 12/21/2022 11:59 PM CDT Hospital Encounter Outpatient Procedure Center in [place], [place] [address] [place] [address] Filemon Mendez M.D. [address] [place] [address] Discharge Disposition: Home or Self Care Social [...] (Latest Contact Info) Description 04/18/2023 1:10 PM GERONTOLOGY AIDE Ancillary Procedure Department of Ophthalmology in [address] [address] 04/18/2023 1:30 PM GERONTOLOGY AIDE Appointment Outpatient Procedure Center in [address] [address] Madison Caicedo M.D. [address] [place] [phone] Discharge Disposition: Home or Self Care 05/23/2023 9:45 AM CDT Clinical Communication Virtual Review in [place], [place] 200 [place] [address] 05/26/2023 8:30 AM CDT Ancillary Procedure Department of Ophthalmology in [address] [address] Madison Caicedo M.D. [address] [place] [phone] 05/26/2023 9:00 AM CDT Ancillary Procedure Department of Ophthalmology in [address] [address] Madison Caicedo M.D. [address] [place] [phone] 05/26/2023 9:15 AM CDT Office Visit Department of Ophthalmology in [place], [place] [address] [place] [address] Madison Caicedo M.D. [address] [place] [address] 05/26/2023 1:20 PM CDT Appointment Outpatient Procedure Center in [place], [place] [address] [place] [address] Madison Caicedo M.D. [address] [place] [address] documented as of this encounter Procedures Procedure [...] Right Eye ??[facility]: 31713-542-82 Balanced salt solution irrigation to injected eye [...] given if requested. Avastin RE Lot # [id number] Exp. 01/13/23 Filemon Mendez M.D. [facility] PROCED URES documented in this encounter Visit Diagnoses Not on filedocumented in this encounter Care Teams Nurse Advisor Relationship Specialty Start Date End Date Elsewhere, Pcp PCP - General Family Medicine 02/17/17 documented as of this encounter
--- OUTSIDE RECORDS SUMMARY | 2023-04-12 06:32 | XMS_ITS | Encounter Summary ---
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 [address] [place] [address] [facility] Referral ID Status Reason Start Date Expiration Date Visits Re quested Visits Authorized [id number] Closed 10/13/2022 10/13/2023 5 5 Encounter Details Date Type Department Care Team (Latest Contact Info) Description 11/17/2022 2:40 PM CDT Ancillary Procedure Department of Ophthalmology in [place], [place] [address] [place] [phone] Madison Caicedo M.D. [address] [place] [address] Diabetes Mellitus Type 2 With [...] (Latest Contact Info) Description 04/18/2023 1:10 PM CURRICULUM FACILITATOR Ancillary Procedure Department of Ophthalmology in [address] [address] 04/18/2023 1:30 PM CURRICULUM FACILITATOR Appointment Outpatient Procedure Center in [address] [address] Madison Caicedo M.D. [address] [place] [phone] Discharge Disposition: Home or Self Care 05/23/2023 9:45 AM CDT Clinical Communication Virtual Review in [address] [address] 05/26/2023 8:30 AM CDT Ancillary Procedure Department of Ophthalmology in [address] [address] Madison Caicedo M.D. [address] [place] [phone] 05/26/2023 9:00 AM CDT Ancillary Procedure Department of Ophthalmology in [address] [address] Madison Caicedo M.D. [address] [place] [phone] 05/26/2023 9:15 AM CDT Office Visit Department of Ophthalmology in [address] [address] Madison Caicedo M.D. [address] [place] [phone] 05/26/2023 1:20 PM CDT Appointment Outpatient Procedure Center in [place], [place] [address] [place] [address] Madison Caicedo M.D. 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
--- OUTSIDE RECORDS SUMMARY | 2023-04-12 06:32 | XMS_ITS | Encounter Summary ---
Author Name Unknown Organization [facility] Address [address] [place] [address] Care Team Providers Care Scraper Hand Name Role Phone Elsewhere, Pcp Primary Care Provider Unavailabl e Encounter Details Date Type Department Care Team (Latest Contact Info) Description 11/11/2022 Orders Only Department of Ophthalmology in [place], [place] [address] [place] [address] Eliane Laura [address] [place] [address] Diabetes Mellitus Due To Underlying Condition With [...] (Latest Contact Info) Description 04/18/2023 1:10 PM TABLE SAW OPERATOR Ancillary Procedure Department of Ophthalmology in [place], [place] [address] [place] [address] 04/18/2023 1:30 PM TABLE SAW OPERATOR Appointment Outpatient Procedure Center in [place], [place] [address] [place] [phone] Madison Caicedo M.D. [address] [place] [phone] Discharge Disposition: Home or Self Care 05/23/2023 9:45 AM CDT Clinical Communication Virtual Review in [place], [place] 200 [place] [address] 05/26/2023 8:30 AM CDT Ancillary Procedure Department of Ophthalmology in [place], [place] [address] [place] [phone] Madison Caicedo M.D. [address] [place] [phone] 05/26/2023 9:00 AM CDT Ancillary Procedure Department of Ophthalmology in [place], [place] [address] [place] [phone] Madison Caicedo M.D. [address] [place] [phone] 05/26/2023 9:15 AM CDT Office Visit Department of Ophthalmology in [address] [address] Madison Caicedo M.D. [address] [place] [phone] 05/26/2023 1:20 PM CDT Appointment Outpatient Procedure Center in [place], [place] [address] [place] [phone] Madison Caicedo M.D. 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
--- OUTSIDE RECORDS SUMMARY | 2023-04-12 06:32 | XMS_ITS | Encounter Summary ---
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 [address] [place] [address] [facility] Referral ID Status Reason Start Date Expiration Date V isits Requested Visits Authorized [id number] Authorized 10/13/2022 10/13/2023 6 6 Encounter Details Date Type Department Care Team (Latest Contact Info) Description 01/18/2023 1:38 PM ANIMAL SCIENTIST - 01/18/2023 2:53 PM ANIMAL SCIENTIST Hospital Encounter Outpatient Procedure Center in [place], [place] [address] [place] [address] Madison Caicedo M.D. [address] [place] [phone] Diabetes Mellitus Type 2 With Moderate Nonproliferative [...] (Latest Contact Info) Description 04/18/2023 1:10 PM ANIMAL SCIENTIST Ancillary Procedure Department of Ophthalmology in [place], [place] [address] [place] [phone] 04/18/2023 1:30 PM ANIMAL SCIENTIST Appointment Outpatient Procedure Center in [place], [place] [address] [place] [phone] Madison Caicedo M.D. [address] [place] [phone] Discharge Disposition: Home or Self Care 05/23/2023 9:45 AM CDT Clinical Communication Virtual Review in [place], [place] 200 [place] [address] 05/26/2023 8:30 AM CDT Ancillary Procedure Department of Ophthalmology in [address] [address] Madison Caicedo M.D. [address] [place] [phone] 05/26/2023 9:00 AM CDT Ancillary Procedure Department of Ophthalmology in [place], [place] [address] [place] [phone] Madison Caicedo M.D. [address] [place] [phone] 05/26/2023 9:15 AM CDT Office Visit Department of Ophthalmology in [address] [address] Madison Caicedo M.D. [address] [place] [phone] 05/26/2023 1:20 PM CDT Appointment Outpatient Procedure Center in [address] [address] Madison Caicedo M.D. 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 - 01/18/2023 5:29 PM ANIMAL SCIENTIST Pre-Procedure Verification Pre-procedure verification conducted to verify [...] mg/mL ??Route: intravitreal, Site: Right Eye ??[facility]: 90637-749-02 Balanced salt solution irrigation to injected eye [...] given if requested. Avastin RE Lot # [id number] Exp. 02/04/23 Rj Bowen M.D. OPHTH CLINIC [...] needed, DIRECTED OPHTHALMIC IN OR, Starting on [facility] 06/10/22 at 0918, For 365 days Given 03/15/2023 1:47 PM ANIMAL SCIENTIST 30 mL Given 02/15/2023 2:30 PM ANIMAL SCIENTIST 30 mL Given 01/18/2023 2:55 PM ANIMAL SCIENTIST 30 mL carboxymethylcellulose 1 % ophthalmic solution 1 drop (THERATEARS) 1 drop, right eye, As needed, dry eyes, DIRECTED OPHTHALMIC IN OR, Starting on [facility] 06/10/22 at 0918, For 365 days Given 03/15/2023 1:48 PM ANIMAL SCIENTIST 1 drop Given 02/15/2023 2:30 PM ANIMAL SCIENTIST 1 drop Given 01/18/2023 2:55 PM ANIMAL SCIENTIST 1 drop povidone-iodine 5 % ophthalmic solution 1 drop (BETADINE) 1 drop, right eye, As needed, irrigation, DIRECTED OPHTHALMIC IN OR, Starting on Itzel 06/10/22 at 0918, For 365 days, Irrigate ocular and periocular region and leave for 2 mins; then flush with sterile saline solution. Given 03/15/2023 1:48 PM ANIMAL SCIENTIST 1 drop Given 02/15/2023 2:30 PM ANIMAL SCIENTIST 1 drop Given 01/18/2023 2:55 PM ANIMAL SCIENTIST 1 drop proparacaine 0.5 % ophthalmic solution 1 drop (ALCAINE) 1 drop, right eye, As needed, DIRECTED OPHTHALMIC IN OR, Starting on [facility] 06/10/22 at 0918, For 365 days Given 03/15/2023 1:48 PM ANIMAL SCIENTIST 1 drop Given 02/15/2023 2:30 PM ANIMAL SCIENTIST 1 drop Given 01/18/2023 2:55 PM ANIMAL SCIENTIST 1 drop tetracaine (PF) 0.5 % ophthalmic solution 1 drop (ALTACAINE) 1 drop, right eye, As needed, DIRECTED OPHTHALMIC IN OR, Starting on [facility] 06/10/22 at 0918, For 365 days Given 03/15/2023 1:47 PM ANIMAL SCIENTIST 1 drop Given 02/15/2023 2:30 PM ANIMAL SCIENTIST 1 drop Given 01/18/2023 2:55 PM ANIMAL SCIENTIST 1 drop Inactive Administered Medications - up to 3 most recent administrations Medication Order MAR Action Action Date Dose Rate Site bevacizumab intraocular injection 1.25 mg (AVASTIN) 1.25 mg, intravitreal, As needed, DIRECTED OPHTHALMIC IN OR, Starting on Tue01/18/23 at 1729, Inject into right eye. Given 01/18/2023 5:29 PM ANIMAL SCIENTIST 1.25 mg Right Eye documented in this encounter Care Teams Handicapped Teacher Relationship Specialty Start Date End Date Elsewhere, Pcp PCP - General Family Medicine 02/17/17 documented as of this encounter
--- OUTSIDE RECORDS SUMMARY | 2023-04-12 06:33 | XMS_ITS | Encounter Summary ---
Author Name Unknown Organization 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 [address] [place] [address] [facility] Referral ID Status Reason Start Date Expiration Date Visits Re quested Visits Authorized [id number] Closed 06/10/2022 06/10/2023 4 4 Encounter Details Date Type Department Care Team (Latest Contact Info) Description 09/07/2022 2:06 PM CDT - 09/07/2022 2:40 PM CDT Hospital Encounter Outpatient Procedure Center in [place], [place] [address] [place] [address] Madison Caicedo M.D. [address] [place] [address] Diabetes Mellitus Type 2 With Mild Nonproliferative [...] (Latest Contact Info) Description 04/18/2023 1:10 PM INSTANT PRINTER OPERATOR Ancillary Procedure Department of Ophthalmology in [place], [place] [address] [place] [phone] 04/18/2023 1:30 PM INSTANT PRINTER OPERATOR Appointment Outpatient Procedure Center in [address] [address] Madison Caicedo M.D. [address] [place] [phone] Discharge Disposition: Home or Self Care 05/23/2023 9:45 AM CDT Clinical Communication Virtual Review in [place], [place] 200 [place] [address] 05/26/2023 8:30 AM CDT Ancillary Procedure Department of Ophthalmology in [address] [address] Madison Caicedo M.D. [address] [place] [phone] 05/26/2023 9:00 AM CDT Ancillary Procedure Department of Ophthalmology in [address] [address] Madison Caicedo M.D. [address] [place] [phone] 05/26/2023 9:15 AM CDT Office Visit Department of Ophthalmology in [address] [address] Madison Caicedo M.D. [address] [place] [phone] 05/26/2023 1:20 PM CDT Appointment Outpatient Procedure Center in [address] [address] Madison Caicedo M.D. [address] [place] [phone] documented as of this encounter Procedures Procedure [...] mg/mL ??Route: intravitreal, Site: Right Eye ??[facility]: 72587-899-30 Balanced salt solution irrigation to injected eye [...] schedule given if requested. Right eye LOT: [id number] EXP: 09/29/22 Filemon Mendez M.D. OPHTH CLINIC [...] For 365 days Given 03/15/2023 1:47 PM INSTANT PRINTER OPERATOR 30 mL Given 02/15/2023 2:30 PM INSTANT PRINTER OPERATOR 30 mL Given 01/18/2023 2:55 PM INSTANT PRINTER OPERATOR 30 mL carboxymethylcellulose 1 % ophthalmic solution 1 drop (THERATEARS) 1 drop, right eye, As needed, dry eyes, DIRECTED OPHTHALMIC IN OR, Starting on Itzel 06/10/22 at 0918, For 365 days Given 03/15/2023 1:48 PM INSTANT PRINTER OPERATOR 1 drop Given 02/15/2023 2:30 PM INSTANT PRINTER OPERATOR 1 drop Given 01/18/2023 2:55 PM INSTANT PRINTER OPERATOR 1 drop povidone-iodine 5 % ophthalmic solution 1 drop (BETADINE) 1 drop, right eye, As needed, irrigation, DIRECTED OPHTHALMIC IN OR, Starting on Itzel 06/10/22 at 0918, For 365 days, Irrigate ocular and periocular region and leave for 2 mins; then flush with sterile saline solution. Given 03/15/2023 1:48 PM INSTANT PRINTER OPERATOR 1 drop Given 02/15/2023 2:30 PM INSTANT PRINTER OPERATOR 1 drop Given 01/18/2023 2:55 PM INSTANT PRINTER OPERATOR 1 drop proparacaine 0.5 % ophthalmic solution 1 drop (ALCAINE) 1 drop, right eye, As needed, DIRECTED OPHTHALMIC IN OR, Starting on Itzel 06/10/22 at 0918, For 365 days Given 03/15/2023 1:48 PM INSTANT PRINTER OPERATOR 1 drop Given 02/15/2023 2:30 PM INSTANT PRINTER OPERATOR 1 drop Given 01/18/2023 2:55 PM INSTANT PRINTER OPERATOR 1 drop tetracaine (PF) 0.5 % ophthalmic solution 1 drop (ALTACAINE) 1 drop, right eye, As needed, DIRECTED OPHTHALMIC IN OR, Starting on Itzel 06/10/22 at 0918, For 365 days Given 03/15/2023 1:47 PM INSTANT PRINTER OPERATOR 1 drop Given 02/15/2023 2:30 PM INSTANT PRINTER OPERATOR 1 drop Given 01/18/2023 2:55 PM INSTANT PRINTER OPERATOR 1 drop Inactive Administered Medications - up to 3 most recent administrations Medication Order MAR Action Action Date Dose Rate Site bevacizumab intraocular injection 1.25 mg (AVASTIN) 1.25 mg, intravitreal, As needed, DIRECTED OPHTHALMIC IN OR, Starting on Tue09/07/22 at 1502, Inject into right eye. Given 09/07/2022 3:02 PM CDT 1.25 mg Right Eye documented in this encounter Care Teams Manager Event Relationship Specialty Start Date End Date Elsewhere, Pcp PCP - General Family Medicine 02/17/17 documented as of this encounter
--- OUTSIDE RECORDS SUMMARY | 2023-04-12 06:33 | XMS_ITS | Encounter Summary ---
Author Name Unknown Organization [facility] Address [address] [place] [address] Care Team Providers Care Circuit Tester Name Role Phone Elsewhere, Pcp Primary Care Provider Unavailabl e Encounter Details Date Type Department Care Team (Latest Contact Info) Description 09/07/2022 2:41 PM CDT - 09/07/2022 11:59 PM CDT Hospital Encounter Outpatient Procedure Center in [place], [place] [address] [place] [address] Filemon Mendez M.D. [address] [place] [address] Discharge Disposition: Home or Self Care Social [...] (Latest Contact Info) Description 04/18/2023 1:10 PM FARM FIELD MANAGER Ancillary Procedure Department of Ophthalmology in [address] [address] 04/18/2023 1:30 PM FARM FIELD MANAGER Appointment Outpatient Procedure Center in [address] [address] Madison Caicedo M.D. [address] [place] [phone] Discharge Disposition: Home or Self Care 05/23/2023 9:45 AM CDT Clinical Communication Virtual Review in [place], [place] 200 [place] [address] 05/26/2023 8:30 AM CDT Ancillary Procedure Department of Ophthalmology in [address] [address] Madison Caicedo M.D. [address] [place] [phone] 05/26/2023 9:00 AM CDT Ancillary Procedure Department of Ophthalmology in [address] [address] Madison Caicedo M.D. [address] [place] [phone] 05/26/2023 9:15 AM CDT Office Visit Department of Ophthalmology in [place], [place] [address] [place] [address] Madison Caicedo M.D. [address] [place] [address] 05/26/2023 1:20 PM CDT Appointment Outpatient Procedure Center in [place], [place] [address] [place] [address] Madison Caicedo M.D. [address] [place] [address] documented as of this encounter Procedures Procedure [...] 25 mg/mL ??Route: intravitreal, Site: Right Eye ??[facility]: 80466-582-88 Balanced salt solution irrigation to injected eye [...] schedule given if requested. Right eye LOT: [id number] EXP: 09/29/22 Filemon Mendez M.D. [facility] PROCED URES documented in this encounter Visit Diagnoses Not on filedocumented in this encounter Care Teams Circuit Tester Relationship Specialty Start Date End Date Elsewhere, Pcp PCP - General Family Medicine 02/17/17 documented as of this encounter
--- OUTSIDE RECORDS SUMMARY | 2023-04-12 06:33 | XMS_ITS | Encounter Summary ---
Author Name Unknown Organization [facility] Address [address] [place] [address] Care Team Providers Care Senior Project Architect Name Role Phone Elsewhere, Pcp Primary Care Provider Unavailabl e Encounter Details Date Type Department Care Team (Latest Contact Info) Description 09/01/2022 Orders Only Department of Ophthalmology in [place], [place] [address] [place] [address] Carolyn Farah, C.O.A. Diabetes Mellitus Due To [...] (Latest Contact Info) Description 04/18/2023 1:10 PM SOUND CONTROLLER Ancillary Procedure Department of Ophthalmology in [place], [place] [address] [place] [address] 04/18/2023 1:30 PM SOUND CONTROLLER Appointment Outpatient Procedure Center in [place], [place] [address] [place] [phone] Madison Caicedo M.D. [address] [place] [phone] Discharge Disposition: Home or Self Care 05/23/2023 9:45 AM CDT Clinical Communication Virtual Review in [place], [place] 200 [place] [address] 05/26/2023 8:30 AM CDT Ancillary Procedure Department of Ophthalmology in [place], [place] [address] [place] [phone] Madison Caicedo M.D. [address] [place] [address] 05/26/2023 9:00 AM CDT Ancillary Procedure Department of Ophthalmology in [place], [place] [address] [place] [phone] Madison Caicedo M.D. [address] [place] [phone] 05/26/2023 9:15 AM CDT Office Visit Department of Ophthalmology in [address] [address] Madison Caicedo M.D. [address] [place] [phone] 05/26/2023 1:20 PM CDT Appointment Outpatient Procedure Center in [place], [place] [address] [place] [phone] Madison Caicedo M.D. 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
--- OUTSIDE RECORDS SUMMARY | 2023-04-12 06:33 | XMS_ITS | Encounter Summary ---
Author Name Unknown Organization [facility] Address [address] [place] [address] Care Team Providers Care Medical Massage Therapist Name Role Phone Elsewhere, Pcp Primary Care Provider Unavailabl e Reason for Visit * Reason Comments Injection Visit * Outpatient (Routine) - Closed Specialty Diagnoses / Procedures Referred By Araceli garza Referred To Contact Ophthalmology Madison Caicedo M.D. [address] [place] [address] [facility] Referral ID Status Reason Start Date Expiration Date Visits Re quested Visits Authorized [id number] Closed 06/10/2022 06/09/2025 1 1 Encounter Details Date Type Department Care Team (Latest Contact Info) Description 10/13/2022 9:45 AM CDT Office Visit Department of Ophthalmology in [place], [place] [address] [place] [phone] Madison Caicedo M.D. [address] [place] [phone] Diabetes Mellitus Type 2 With Moderate Nonproliferative [...] left eye: no neovascularization, macular hyperfluorescence temporal; [facility] OCT macula: 10/13/2022 right eye: macular edema, [...] last injection with OCT macula Injection location: [facility] injection slot Addendum 03/15/23: Add one more injection Avastin RIGHT eye at 4-[address] Caicedo 5-6 weeks after last injection with OCT macula both eyes EL RN OR documented in this encounter Plan of Treatment Upcoming Encounters Date Type Department Care Team (Latest Contact Info) Description 04/18/2023 1:10 PM TRAVEL RN OR Ancillary Procedure Department of Ophthalmology in [address] [address] 04/18/2023 1:30 PM TRAVEL RN OR Appointment Outpatient Procedure Center in [address] [address] Madison Caicedo M.D. [address] [place] [phone] Discharge Disposition: Home or Self Care 05/23/2023 9:45 AM CDT Clinical Communication Virtual Review in [address] [address] 05/26/2023 8:30 AM CDT Ancillary Procedure Department of Ophthalmology in [address] [address] Madison Caicedo M.D. [address] [place] [phone] 05/26/2023 9:00 AM CDT Ancillary Procedure Department of Ophthalmology in [address] [address] Madison Caicedo M.D. [address] [place] [phone] 05/26/2023 9:15 AM CDT Office Visit Department of Ophthalmology in [address] [address] Madison Caicedo M.D. [address] [place] [phone] 05/26/2023 1:20 PM CDT Appointment Outpatient Procedure Center in [place], [place] [address] [place] [address] Madison Caicedo M.D. 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
--- OUTSIDE RECORDS SUMMARY | 2023-04-12 06:33 | XMS_ITS | Encounter Summary ---
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 [address] [place] [address] [facility] Referral ID Status Reason Start Date Expiration Date Visits Re quested Visits Authorized [id number] Closed 06/10/2022 06/10/2023 3 3 Encounter Details Date Type Department Care Team (Latest Contact Info) Description 09/07/2022 2:20 PM CDT Ancillary Procedure Department of Ophthalmology in [place], [place] [address] [place] [phone] Madison Caicedo M.D. [address] [place] [address] Diabetes Mellitus Type 2 With [...] (Latest Contact Info) Description 04/18/2023 1:10 PM RETARDER OPERATOR Ancillary Procedure Department of Ophthalmology in [address] [address] 04/18/2023 1:30 PM RETARDER OPERATOR Appointment Outpatient Procedure Center in [address] [address] Madison Caicedo M.D. [address] [place] [phone] Discharge Disposition: Home or Self Care 05/23/2023 9:45 AM CDT Clinical Communication Virtual Review in [address] [address] 05/26/2023 8:30 AM CDT Ancillary Procedure Department of Ophthalmology in [address] [address] Madison Caicedo M.D. [address] [place] [phone] 05/26/2023 9:00 AM CDT Ancillary Procedure Department of Ophthalmology in [address] [address] Madison Caicedo M.D. [address] [place] [phone] 05/26/2023 9:15 AM CDT Office Visit Department of Ophthalmology in [address] [address] Madison Caicedo M.D. [address] [place] [phone] 05/26/2023 1:20 PM CDT Appointment Outpatient Procedure Center in [place], [place] [address] [place] [address] Madison Caicedo M.D. 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
--- OUTSIDE RECORDS SUMMARY | 2023-04-12 06:33 | XMS_ITS | Encounter Summary ---
Author Name Unknown Organization [facility] Address [address] [place] [address] Care Team Providers Care Supervisor Mill Name Role Phone Elsewhere, Pcp Primary Care [...] INJECTION INTRAVITREAL Madison Caicedo M.D. 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 [address] [place] [address] [facility] Referral ID Status Reason Start Date Expiration Date Visits Re quested Visits Authorized [id number] Closed 06/10/2022 06/10/2023 4 4 Encounter Details Date Type Department Care Team (Latest Contact Info) Description 08/10/2022 1:55 PM CDT - 08/10/2022 2:12 PM CDT Hospital Encounter Outpatient Procedure Center in [place], [place] [address] [place] [address] Madison Caicedo M.D. [address] [place] [address] Diabetes Mellitus Type 2 With Mild Nonproliferative [...] (Latest Contact Info) Description 04/18/2023 1:10 PM POWER BALLAST MACHINE OPERATOR Ancillary Procedure Department of Ophthalmology in [place], [place] [address] [place] [phone] 04/18/2023 1:30 PM POWER BALLAST MACHINE OPERATOR Appointment Outpatient Procedure Center in [address] [address] Madison Caicedo M.D. [address] [place] [phone] Discharge Disposition: Home or Self Care 05/23/2023 9:45 AM CDT Clinical Communication Virtual Review in [place], [place] 200 [place] [address] 05/26/2023 8:30 AM CDT Ancillary Procedure Department of Ophthalmology in [address] [address] Madison Caicedo M.D. [address] [place] [phone] 05/26/2023 9:00 AM CDT Ancillary Procedure Department of Ophthalmology in [address] [address] Madison Caicedo M.D. [address] [place] [phone] 05/26/2023 9:15 AM CDT Office Visit Department of Ophthalmology in [address] [address] Madison Caicedo M.D. [address] [place] [phone] 05/26/2023 1:20 PM CDT Appointment Outpatient Procedure Center in [address] [address] Madison Caicedo M.D. [address] [place] [phone] documented as of this encounter Procedures Procedure [...] 25 mg/mL ??Route: intravitreal, Site: Right Eye ??[facility]: 10721-654-88 Balanced salt solution irrigation to injected eye [...] and return schedule given if requested. Lot [id number] exp 09/21/2022 Filemon Mendez M.D. OPHTH CLINIC [...] needed, DIRECTED OPHTHALMIC IN OR, Starting on [facility] 06/10/22 at 0918, For 365 days Given 03/15/2023 1:47 PM POWER BALLAST MACHINE OPERATOR 30 mL Given 02/15/2023 2:30 PM POWER BALLAST MACHINE OPERATOR 30 mL Given 01/18/2023 2:55 PM POWER BALLAST MACHINE OPERATOR 30 mL carboxymethylcellulose 1 % ophthalmic solution 1 drop (THERATEARS) 1 drop, right eye, As needed, dry eyes, DIRECTED OPHTHALMIC IN OR, Starting on [facility] 06/10/22 at 0918, For 365 days Given 03/15/2023 1:48 PM POWER BALLAST MACHINE OPERATOR 1 drop Given 02/15/2023 2:30 PM POWER BALLAST MACHINE OPERATOR 1 drop Given 01/18/2023 2:55 PM POWER BALLAST MACHINE OPERATOR 1 drop povidone-iodine 5 % ophthalmic solution 1 drop (BETADINE) 1 drop, right eye, As needed, irrigation, DIRECTED OPHTHALMIC IN OR, Starting on [facility] 06/10/22 at 0918, For 365 days, Irrigate ocular and periocular region and leave for 2 mins; then flush with sterile saline solution. Given 03/15/2023 1:48 PM POWER BALLAST MACHINE OPERATOR 1 drop Given 02/15/2023 2:30 PM POWER BALLAST MACHINE OPERATOR 1 drop Given 01/18/2023 2:55 PM POWER BALLAST MACHINE OPERATOR 1 drop proparacaine 0.5 % ophthalmic solution 1 drop (ALCAINE) 1 drop, right eye, As needed, DIRECTED OPHTHALMIC IN OR, Starting on [facility] 06/10/22 at 0918, For 365 days Given 03/15/2023 1:48 PM POWER BALLAST MACHINE OPERATOR 1 drop Given 02/15/2023 2:30 PM POWER BALLAST MACHINE OPERATOR 1 drop Given 01/18/2023 2:55 PM POWER BALLAST MACHINE OPERATOR 1 drop tetracaine (PF) 0.5 % ophthalmic solution 1 drop (ALTACAINE) 1 drop, right eye, As needed, DIRECTED OPHTHALMIC IN OR, Starting on [facility] 06/10/22 at 0918, For 365 days Given 03/15/2023 1:47 PM POWER BALLAST MACHINE OPERATOR 1 drop Given 02/15/2023 2:30 PM POWER BALLAST MACHINE OPERATOR 1 drop Given 01/18/2023 2:55 PM POWER BALLAST MACHINE OPERATOR 1 drop Inactive Administered Medications - up to 3 most recent administrations Medication Order MAR Action Action Date Dose Rate Site bevacizumab intraocular injection 1.25 mg (AVASTIN) 1.25 mg, intravitreal, As needed, DIRECTED OPHTHALMIC IN OR, Starting on Tue08/10/22 at 1514, Inject into right eye. Given 08/10/2022 3:14 PM CDT 1.25 mg Right Eye documented in this encounter Care Teams Supervisor Mill Relationship Specialty Start Date End Date Elsewhere, Pcp PCP - General Family Medicine 02/17/17 documented as of this encounter
--- OUTSIDE RECORDS SUMMARY | 2023-04-12 06:33 | XMS_ITS | Encounter Summary ---
Author Name Unknown Organization [facility] Address [address] [place] [address] Care Team Providers Care Elevator Operator Service Name Role Phone Elsewhere, Pcp Primary Care Provider Unavailabl e Reason for Visit * Reason Onset Date Comments Pre-visit Intake 10/08/2022 Encounter Details Date Type Department Care Team (Latest Contact Info) Description 10/08/2022 10:45 AM CDT Clinical Communication Virtual Review in [place], [place] 200 [place] [address] Pre-visit Intake Social History Tobacco Use Types [...] (Latest Contact Info) Description 04/18/2023 1:10 PM DESK CLERK Ancillary Procedure Department of Ophthalmology in [place], [place] [address] [place] [phone] 04/18/2023 1:30 PM DESK CLERK Appointment Outpatient Procedure Center in [place], [place] [address] [place] [phone] Madison Caicedo M.D. [address] [place] [phone] Discharge Disposition: Home or Self Care 05/23/2023 9:45 AM CDT Clinical Communication Virtual Review in [place], [place] 200 [place] [address] 05/26/2023 8:30 AM CDT Ancillary Procedure Department of Ophthalmology in [place], [place] [address] [place] [phone] Madison Caicedo M.D. [address] [place] [phone] 05/26/2023 9:00 AM CDT Ancillary Procedure Department of Ophthalmology in [place], [place] [address] [place] [phone] Madison Caicedo M.D. [address] [place] [phone] 05/26/2023 9:15 AM CDT Office Visit Department of Ophthalmology in [place], [place] [address] [place] [phone] Madison Caicedo M.D. [address] [place] [phone] 05/26/2023 1:20 PM CDT Appointment Outpatient Procedure Center in [place], [place] [address] [place] [phone] Madison Caicedo M.D. [address] [place] [phone] documented as of this encounter Visit Diagnoses Not on filedocumented in this encounter Care Teams Elevator Operator Service Relationship Specialty Start Date End Date Elsewhere, Pcp PCP - General Family Medicine 02/17/17 documented as of this encounter
--- OUTSIDE RECORDS SUMMARY | 2023-04-12 06:33 | XMS_ITS | Encounter Summary ---
Author Name Unknown Organization [facility] Address [address] [place] [address] Care Team Providers Care Tag Press Operator Name Role Phone Elsewhere, Pcp Primary Care Provider Unavailabl e Encounter Details Date Type Department Care Team (Latest Contact Info) Description 08/10/2022 2:13 PM CDT - 08/10/2022 11:59 PM CDT Hospital Encounter Outpatient Procedure Center in [place], [place] [address] [place] [address] Filemon Mendez M.D. [address] [place] [address] Discharge Disposition: Home or Self Care Social [...] Contact Info) Description 04/18/2023 1:10 PM BUSINESS PROCESS ENGINEER Ancillary Procedure Department of Ophthalmology in [address] [address] 04/18/2023 1:30 PM BUSINESS PROCESS ENGINEER Appointment Outpatient Procedure Center in [address] [address] Madison Caicedo M.D. [address] [place] [phone] Discharge Disposition: Home or Self Care 05/23/2023 9:45 AM CDT Clinical Communication Virtual Review in [place], [place] 200 [place] [address] 05/26/2023 8:30 AM CDT Ancillary Procedure Department of Ophthalmology in [address] [address] Madison Caicedo M.D. [address] [place] [phone] 05/26/2023 9:00 AM CDT Ancillary Procedure Department of Ophthalmology in [address] [address] Madison Caicedo M.D. [address] [place] [phone] 05/26/2023 9:15 AM CDT Office Visit Department of Ophthalmology in [place], [place] [address] [place] [address] Madison Caicedo M.D. [address] [place] [address] 05/26/2023 1:20 PM CDT Appointment Outpatient Procedure Center in [place], [place] [address] [place] [address] Madison Caicedo M.D. [address] [place] [address] documented as of this encounter Procedures Procedure [...] 25 mg/mL ??Route: intravitreal, Site: Right Eye ??[facility]: 96010-708-91 Balanced salt solution irrigation to injected eye [...] and return schedule given if requested. Lot [id number] exp 09/21/2022 Filemon Mendez M.D. [facility] PROCED URES documented in this encounter Visit Diagnoses Not on filedocumented in this encounter Care Teams Tag Press Operator Relationship Specialty Start Date End Date Elsewhere, Pcp PCP - General Family Medicine 02/17/17 documented as of this encounter
--- OUTSIDE RECORDS SUMMARY | 2023-04-12 06:33 | XMS_ITS | Encounter Summary ---
Author Name Unknown Organization [facility] Address [address] [place] [address] Care Team Providers Care Bottom Hoop Driver Name Role Phone Elsewhere, Pcp Primary Care Provider Unavailabl e Encounter Details Date Type Department Care Team (Latest Contact Info) Description 07/13/2022 2:36 PM CDT - 07/13/2022 11:59 PM CDT Hospital Encounter Outpatient Procedure Center in [place], [place] [address] [place] [address] Teodoro Pedroza M.D. [address] [place] [address] Discharge Disposition: Home or Self [...] (Latest Contact Info) Description 04/18/2023 1:10 PM FLAP MAKER Ancillary Procedure Department of Ophthalmology in [address] [address] 04/18/2023 1:30 PM FLAP MAKER Appointment Outpatient Procedure Center in [address] [address] Madison Caicedo M.D. [address] [place] [phone] Discharge Disposition: Home or Self Care 05/23/2023 9:45 AM CDT Clinical Communication Virtual Review in [place], [place] 200 [place] [address] 05/26/2023 8:30 AM CDT Ancillary Procedure Department of Ophthalmology in [address] [address] Madison Caicedo M.D. [address] [place] [phone] 05/26/2023 9:00 AM CDT Ancillary Procedure Department of Ophthalmology in [address] [address] Madison Caicedo M.D. [address] [place] [phone] 05/26/2023 9:15 AM CDT Office Visit Department of Ophthalmology in [place], [place] [address] [place] [address] Madison Caicedo M.D. [address] [place] [address] 05/26/2023 1:20 PM CDT Appointment Outpatient Procedure Center in [place], [place] [address] [place] [address] Madison Caicedo M.D. [address] [place] [address] documented as of this encounter Results * [...] 25 mg/mL ??Route: intravitreal, Site: Right Eye ??[facility]: 27042-003-77 Balanced salt solution irrigation to injected eye [...] return schedule given if requested. Lot # [id number] Exp. 08/26/22 Teodoro Pedroza M.D. [facility] PROCEDU RES documented in this encounter Visit Diagnoses Not on filedocumented in this encounter Care Teams Bottom Hoop Driver Relationship Specialty Start Date End Date Elsewhere, Pcp PCP - General Family Medicine 02/17/17 documented as of this encounter
--- OUTSIDE RECORDS SUMMARY | 2023-04-12 06:33 | XMS_ITS | Encounter Summary ---
Author Name Unknown Organization [facility] Address [address] [place] [address] Care Team Providers Care Product Safety Technician Name Role Phone Elsewhere, Pcp Primary Care Provider Unavailabl e Encounter Details Date Type Department Care Team (Latest Contact Info) Description 07/07/2022 Orders Only Department of Ophthalmology in [place], [place] [address] [place] [address] Eliane Laura [address] [place] [address] Diabetes Mellitus Due To Underlying Condition With [...] (Latest Contact Info) Description 04/18/2023 1:10 PM ARTIFICIAL PLASTIC EYE MAKER Ancillary Procedure Department of Ophthalmology in [place], [place] [address] [place] [address] 04/18/2023 1:30 PM ARTIFICIAL PLASTIC EYE MAKER Appointment Outpatient Procedure Center in [place], [place] [address] [place] [phone] Madison Caicedo M.D. [address] [place] [phone] Discharge Disposition: Home or Self Care 05/23/2023 9:45 AM CDT Clinical Communication Virtual Review in [place], [place] 200 [place] [address] 05/26/2023 8:30 AM CDT Ancillary Procedure Department of Ophthalmology in [place], [place] [address] [place] [phone] Madison Caicedo M.D. [address] [place] [phone] 05/26/2023 9:00 AM CDT Ancillary Procedure Department of Ophthalmology in [place], [place] [address] [place] [phone] Madison Caicedo M.D. [address] [place] [phone] 05/26/2023 9:15 AM CDT Office Visit Department of Ophthalmology in [address] [address] Madison Caicedo M.D. [address] [place] [phone] 05/26/2023 1:20 PM CDT Appointment Outpatient Procedure Center in [place], [place] [address] [place] [phone] Madison Caicedo M.D. 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
--- OUTSIDE RECORDS SUMMARY | 2023-04-12 06:33 | XMS_ITS | Encounter Summary ---
Author Name Unknown Organization [facility] Address [address] [place] [address] Care Team Providers Care Chief Librarian Circulation Department Name Role Phone Elsewhere, Pcp Primary Care Provider Unavailabl e Encounter Details Date Type Department Care Team (Latest Contact Info) Description 08/04/2022 Orders Only Department of Ophthalmology in [place], [place] [address] [place] [address] Eliane Laura [address] [place] [address] Diabetes Mellitus Due To Underlying Condition With [...] Contact Info) Description 04/18/2023 1:10 PM CREDIT UNION FIELD EXAMINER Ancillary Procedure Department of Ophthalmology in [place], [place] [address] [place] [address] 04/18/2023 1:30 PM CREDIT UNION FIELD EXAMINER Appointment Outpatient Procedure Center in [place], [place] [address] [place] [phone] Madison Caicedo M.D. [address] [place] [phone] Discharge Disposition: Home or Self Care 05/23/2023 9:45 AM CDT Clinical Communication Virtual Review in [place], [place] [address] [place] [address] 05/26/2023 8:30 AM CDT Ancillary Procedure Department of Ophthalmology in [place], [place] [address] [place] [address] Madison Caicedo M.D. [address] [place] [phone] 05/26/2023 9:00 AM CDT Ancillary Procedure Department of Ophthalmology in [place], [place] [address] [place] [phone] Madison Caicedo M.D. [address] [place] [phone] 05/26/2023 9:15 AM CDT Office Visit Department of Ophthalmology in [address] [address] Madison Caicedo M.D. [address] [place] [phone] 05/26/2023 1:20 PM CDT Appointment Outpatient Procedure Center in [place], [place] [address] [place] [phone] Madison Caicedo M.D. 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
--- OUTSIDE RECORDS SUMMARY | 2023-04-12 06:33 | XMS_ITS | Encounter Summary ---
Author Name Unknown Organization [facility] Address [address] [place] [address] Care Team Providers Care Sql Application Developer Name Role Phone Elsewhere, Pcp Primary Care Provider Unavailabl e Encounter Details Date Type Department Care Team (Latest Contact Info) Description 10/07/2022 Orders Only Department of Ophthalmology in [place], [place] [address] [place] [address] Eliane Laura [address] [place] [address] Diabetes Mellitus Due To Underlying Condition With [...] (Latest Contact Info) Description 04/18/2023 1:10 PM ICU STAFF NURSE Ancillary Procedure Department of Ophthalmology in [place], [place] [address] [place] [address] 04/18/2023 1:30 PM ICU STAFF NURSE Appointment Outpatient Procedure Center in [place], [place] [address] [place] [phone] Madison Caicedo M.D. [address] [place] [phone] Discharge Disposition: Home or Self Care 05/23/2023 9:45 AM CDT Clinical Communication Virtual Review in [place], [place] [address] [place] [address] 05/26/2023 8:30 AM CDT Ancillary Procedure Department of Ophthalmology in [place], [place] [address] [place] [phone] Madison Caicedo M.D. [address] [place] [phone] 05/26/2023 9:00 AM CDT Ancillary Procedure Department of Ophthalmology in [place], [place] [address] [place] [phone] Madison Caicedo M.D. [address] [place] [phone] 05/26/2023 9:15 AM CDT Office Visit Department of Ophthalmology in [address] [address] Madison Caicedo M.D. [address] [place] [phone] 05/26/2023 1:20 PM CDT Appointment Outpatient Procedure Center in [place], [place] [address] [place] [phone] Madison Caicedo M.D. 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
--- OUTSIDE RECORDS SUMMARY | 2023-04-12 06:33 | XMS_ITS | Encounter Summary ---
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 [address] [place] [address] [facility] Referral ID Status Reason Start Date Expiration Date Visits Re quested Visits Authorized [id number] Closed 06/10/2022 06/10/2023 3 3 Encounter Details Date Type Department Care Team (Latest Contact Info) Description 08/10/2022 2:00 PM CDT Ancillary Procedure Department of Ophthalmology in [place], [place] [address] [place] [phone] Madison Caicedo M.D. [address] [place] [address] Diabetes Mellitus Type 2 With [...] (Latest Contact Info) Description 04/18/2023 1:10 PM MEDICAL RECORDS AUDITOR Ancillary Procedure Department of Ophthalmology in [address] [address] 04/18/2023 1:30 PM MEDICAL RECORDS AUDITOR Appointment Outpatient Procedure Center in [address] [address] Madison Caicedo M.D. [address] [place] [phone] Discharge Disposition: Home or Self Care 05/23/2023 9:45 AM CDT Clinical Communication Virtual Review in [address] [address] 05/26/2023 8:30 AM CDT Ancillary Procedure Department of Ophthalmology in [address] [address] Madison Caicedo M.D. [address] [place] [phone] 05/26/2023 9:00 AM CDT Ancillary Procedure Department of Ophthalmology in [address] [address] Madison Caicedo M.D. [address] [place] [phone] 05/26/2023 9:15 AM CDT Office Visit Department of Ophthalmology in [address] [address] Madison Caicedo M.D. [address] [place] [phone] 05/26/2023 1:20 PM CDT Appointment Outpatient Procedure Center in [place], [place] [address] [place] [address] Madison Caicedo M.D. 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
--- OUTSIDE RECORDS SUMMARY | 2023-04-12 06:33 | XMS_ITS | Encounter Summary ---
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 [address] [place] [address] [facility] Referral ID Status Reason Start Date Expiration Date Visits Re quested Visits Authorized [id number] Closed 06/10/2022 06/10/2023 4 4 Encounter Details Date Type Department Care Team (Latest Contact Info) Description 10/13/2022 11:45 AM CDT - 10/13/2022 12:38 PM CDT Hospital Encounter Outpatient Procedure Center in [place], [place] [address] [place] [address] Madison Caicedo M.D. [address] [place] [address] Diabetes Mellitus Type 2 With Mild Nonproliferative [...] (Latest Contact Info) Description 04/18/2023 1:10 PM LACE STRIPPER Ancillary Procedure Department of Ophthalmology in [place], [place] [address] [place] [phone] 04/18/2023 1:30 PM LACE STRIPPER Appointment Outpatient Procedure Center in [address] [address] Madison Caicedo M.D. [address] [place] [phone] Discharge Disposition: Home or Self Care 05/23/2023 9:45 AM CDT Clinical Communication Virtual Review in [place], [place] 200 [place] [address] 05/26/2023 8:30 AM CDT Ancillary Procedure Department of Ophthalmology in [address] [address] Madison Caicedo M.D. [address] [place] [phone] 05/26/2023 9:00 AM CDT Ancillary Procedure Department of Ophthalmology in [address] [address] Madison Caicedo M.D. [address] [place] [phone] 05/26/2023 9:15 AM CDT Office Visit Department of Ophthalmology in [address] [address] Madison Caicedo M.D. [address] [place] [phone] 05/26/2023 1:20 PM CDT Appointment Outpatient Procedure Center in [address] [address] Madison Caicedo M.D. [address] [place] [phone] documented as of this encounter Procedures Procedure [...] Site: Right Eye ??[facility]: 41740-226-92 Balanced salt solution irrigation to injected eye [...] and return schedule given if requested. Lot [id number] exp 11/19/2022 Filemon Mendez M.D. [facility] [...] needed, DIRECTED OPHTHALMIC IN OR, Starting on [facility] 06/10/22 at 0918, For 365 days Given 03/15/2023 1:47 PM LACE STRIPPER 30 mL Given 02/15/2023 2:30 PM LACE STRIPPER 30 mL Given 01/18/2023 2:55 PM LACE STRIPPER 30 mL carboxymethylcellulose 1 % ophthalmic solution 1 drop (THERATEARS) 1 drop, right eye, As needed, dry eyes, DIRECTED OPHTHALMIC IN OR, Starting on [facility] 06/10/22 at 0918, For 365 days Given 03/15/2023 1:48 PM LACE STRIPPER 1 drop Given 02/15/2023 2:30 PM LACE STRIPPER 1 drop Given 01/18/2023 2:55 PM LACE STRIPPER 1 drop povidone-iodine 5 % ophthalmic solution 1 drop (BETADINE) 1 drop, right eye, As needed, irrigation, DIRECTED OPHTHALMIC IN OR, Starting on [facility] 06/10/22 at 0918, For 365 days, Irrigate ocular and periocular region and leave for 2 mins; then flush with sterile saline solution. Given 03/15/2023 1:48 PM LACE STRIPPER 1 drop Given 02/15/2023 2:30 PM LACE STRIPPER 1 drop Given 01/18/2023 2:55 PM LACE STRIPPER 1 drop proparacaine 0.5 % ophthalmic solution 1 drop (ALCAINE) 1 drop, right eye, As needed, DIRECTED OPHTHALMIC IN OR, Starting on [facility] 06/10/22 at 0918, For 365 days Given 03/15/2023 1:48 PM LACE STRIPPER 1 drop Given 02/15/2023 2:30 PM LACE STRIPPER 1 drop Given 01/18/2023 2:55 PM LACE STRIPPER 1 drop tetracaine (PF) 0.5 % ophthalmic solution 1 drop (ALTACAINE) 1 drop, right eye, As needed, DIRECTED OPHTHALMIC IN OR, Starting on [facility] 06/10/22 at 0918, For 365 days Given 03/15/2023 1:47 PM LACE STRIPPER 1 drop Given 02/15/2023 2:30 PM LACE STRIPPER 1 drop Given 01/18/2023 2:55 PM LACE STRIPPER 1 drop Inactive Administered Medications - up to 3 most recent administrations Medication Order MAR Action Action Date Dose Rate Site bevacizumab intraocular injection 1.25 mg (AVASTIN) 1.25 mg, intravitreal, As needed, DIRECTED OPHTHALMIC IN OR, Starting on Tue10/13/22 at 1429, Inject into right eye. Given 10/13/2022 2:29 PM CDT 1.25 mg Right Eye documented in this encounter Care Teams Integrated Logistics Programs Director Relationship Specialty Start Date End Date Elsewhere, Pcp PCP - General Family Medicine 02/17/17 documented as of this encounter
--- OUTSIDE RECORDS SUMMARY | 2023-04-12 06:33 | XMS_ITS | Encounter Summary ---
Author Name Unknown Organization [facility] Address [address] [place] [address] Care Team Providers Care Soil Specialist Name Role Phone Elsewhere, Pcp Primary [...] INJECTION INTRAVITREAL Madison Caicedo M.D. 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 [address] [place] [address] [facility] Referral ID Status Reason Start Date Expiration Date Visits Re quested Visits Authorized [id number] Closed 06/10/2022 06/10/2023 4 4 Encounter Details Date Type Department Care Team (Latest Contact Info) Description 07/13/2022 2:21 PM CDT - 07/13/2022 2:35 PM CDT Hospital Encounter Outpatient Procedure Center in [place], [place] [address] [place] [address] Madison Caicedo M.D. [address] [place] [address] Diabetes Mellitus Type 2 With Mild Nonproliferative [...] (Latest Contact Info) Description 04/18/2023 1:10 PM WELL PULLER HEAD Ancillary Procedure Department of Ophthalmology in [place], [place] [address] [place] [phone] 04/18/2023 1:30 PM WELL PULLER HEAD Appointment Outpatient Procedure Center in [address] [address] Madison Caicedo M.D. [address] [place] [phone] Discharge Disposition: Home or Self Care 05/23/2023 9:45 AM CDT Clinical Communication Virtual Review in [place], [place] 200 [place] [address] 05/26/2023 8:30 AM CDT Ancillary Procedure Department of Ophthalmology in [address] [address] Madison Caicedo M.D. [address] [place] [phone] 05/26/2023 9:00 AM CDT Ancillary Procedure Department of Ophthalmology in [address] [address] Madison Caicedo M.D. [address] [place] [phone] 05/26/2023 9:15 AM CDT Office Visit Department of Ophthalmology in [address] [address] Madison Caicedo M.D. [address] [place] [phone] 05/26/2023 1:20 PM CDT Appointment Outpatient Procedure Center in [address] [address] Madison Caicedo M.D. [address] [place] [phone] documented as of this encounter Procedures Procedure [...] 25 mg/mL ??Route: intravitreal, Site: Right Eye ??[facility]: 46495-445-04 Balanced salt solution irrigation to injected eye [...] return schedule given if requested. Lot # [id number] Exp. 08/26/22 Teodoro Pedroza M.D. OPHTH CLINIC [...] needed, DIRECTED OPHTHALMIC IN OR, Starting on [facility] 06/10/22 at 0918, For 365 days Given 03/15/2023 1:47 PM WELL PULLER HEAD 30 mL Given 02/15/2023 2:30 PM WELL PULLER HEAD 30 mL Given 01/18/2023 2:55 PM WELL PULLER HEAD 30 mL carboxymethylcellulose 1 % ophthalmic solution 1 drop (THERATEARS) 1 drop, right eye, As needed, dry eyes, DIRECTED OPHTHALMIC IN OR, Starting on [facility] 06/10/22 at 0918, For 365 days Given 03/15/2023 1:48 PM WELL PULLER HEAD 1 drop Given 02/15/2023 2:30 PM WELL PULLER HEAD 1 drop Given 01/18/2023 2:55 PM WELL PULLER HEAD 1 drop povidone-iodine 5 % ophthalmic solution 1 drop (BETADINE) 1 drop, right eye, As needed, irrigation, DIRECTED OPHTHALMIC IN OR, Starting on [facility] 06/10/22 at 0918, For 365 days, Irrigate ocular and periocular region and leave for 2 mins; then flush with sterile saline solution. Given 03/15/2023 1:48 PM WELL PULLER HEAD 1 drop Given 02/15/2023 2:30 PM WELL PULLER HEAD 1 drop Given 01/18/2023 2:55 PM WELL PULLER HEAD 1 drop proparacaine 0.5 % ophthalmic solution 1 drop (ALCAINE) 1 drop, right eye, As needed, DIRECTED OPHTHALMIC IN OR, Starting on [facility] 06/10/22 at 0918, For 365 days Given 03/15/2023 1:48 PM WELL PULLER HEAD 1 drop Given 02/15/2023 2:30 PM WELL PULLER HEAD 1 drop Given 01/18/2023 2:55 PM WELL PULLER HEAD 1 drop tetracaine (PF) 0.5 % ophthalmic solution 1 drop (ALTACAINE) 1 drop, right eye, As needed, DIRECTED OPHTHALMIC IN OR, Starting on [facility] 06/10/22 at 0918, For 365 days Given 03/15/2023 1:47 PM WELL PULLER HEAD 1 drop Given 02/15/2023 2:30 PM WELL PULLER HEAD 1 drop Given 01/18/2023 2:55 PM WELL PULLER HEAD 1 drop Inactive Administered Medications - up to 3 most recent administrations Medication Order MAR Action Action Date Dose Rate Site bevacizumab intraocular injection 1.25 mg (AVASTIN) 1.25 mg, intravitreal, As needed, DIRECTED OPHTHALMIC IN OR, Starting on Tue07/13/22 at 1534, Inject into right eye. Given 07/13/2022 3:34 PM CDT 1.25 mg Right Eye documented in this encounter Care Teams Soil Specialist Relationship Specialty Start Date End Date Elsewhere, Pcp PCP - General Family Medicine 02/17/17 documented as of this encounter
--- OUTSIDE RECORDS SUMMARY | 2023-04-12 06:33 | XMS_ITS | Encounter Summary ---
Author Name Unknown Organization [facility] Address [address] [place] [address] Care Team Providers Care Media Executive Name Role Phone Elsewhere, Pcp Primary Care Provider Unavailabl e Encounter Details Date Type Department Care Team (Latest Contact Info) Description 07/13/2022 2:36 PM CDT - 07/13/2022 11:59 PM CDT Hospital Encounter Outpatient Procedure Center in [place], [place] [address] [place] [address] Teodoro Pedroza M.D. [address] [place] [address] Discharge Disposition: Home or Self [...] (Latest Contact Info) Description 04/18/2023 1:10 PM ORTHOTICS PROSTHETICS TECHNICIAN Ancillary Procedure Department of Ophthalmology in [address] [address] 04/18/2023 1:30 PM ORTHOTICS PROSTHETICS TECHNICIAN Appointment Outpatient Procedure Center in [address] [address] Madison Caicedo M.D. [address] [place] [phone] Discharge Disposition: Home or Self Care 05/23/2023 9:45 AM CDT Clinical Communication Virtual Review in [place], [place] 200 [place] [address] 05/26/2023 8:30 AM CDT Ancillary Procedure Department of Ophthalmology in [address] [address] Madison Caicedo M.D. [address] [place] [phone] 05/26/2023 9:00 AM CDT Ancillary Procedure Department of Ophthalmology in [address] [address] Madison Caicedo M.D. [address] [place] [phone] 05/26/2023 9:15 AM CDT Office Visit Department of Ophthalmology in [place], [place] [address] [place] [address] Madison Caicedo M.D. [address] [place] [address] 05/26/2023 1:20 PM CDT Appointment Outpatient Procedure Center in [place], [place] [address] [place] [address] Madison Caicedo M.D. [address] [place] [address] documented as of this encounter Procedures Procedure [...] mg/mL ??Route: intravitreal, Site: Right Eye ??[facility]: 24105-763-03 Balanced salt solution irrigation to injected eye [...] return schedule given if requested. Lot # [id number] Exp. 08/26/22 Teodoro Pedroza M.D. [facility] PROCEDU RES documented in this encounter Visit Diagnoses Not on filedocumented in this encounter Care Teams Media Executive Relationship Specialty Start Date End Date Elsewhere, Pcp PCP - General Family Medicine 02/17/17 documented as of this encounter
--- OUTSIDE RECORDS SUMMARY | 2023-04-12 06:34 | XMS_ITS | Encounter Summary ---
Author Name Unknown Organization [facility] Address [address] [place] [address] Care Team Providers Care Media Center Assistant Name Role Phone Elsewhere, Pcp Primary Care Provider Unavailabl e Encounter Details Date Type Department Care Team (Latest Contact Info) Description 06/10/2022 3:58 PM CDT - 06/10/2022 11:59 PM CDT Hospital Encounter Outpatient Procedure Center in [place], [place] [address] [place] [address] Teodoro Pedroza M.D. [address] [place] [address] Discharge Disposition: Home or Self [...] (Latest Contact Info) Description 04/18/2023 1:10 PM CPO Ancillary Procedure Department of Ophthalmology in [address] [address] 04/18/2023 1:30 PM CPO Appointment Outpatient Procedure Center in [address] [address] Madison Caicedo M.D. [address] [place] [phone] Discharge Disposition: Home or Self Care 05/23/2023 9:45 AM CDT Clinical Communication Virtual Review in [place], [place] 200 [place] [address] 05/26/2023 8:30 AM CDT Ancillary Procedure Department of Ophthalmology in [address] [address] Madison Caicedo M.D. [address] [place] [phone] 05/26/2023 9:00 AM CDT Ancillary Procedure Department of Ophthalmology in [address] [address] Madison Caicedo M.D. [address] [place] [phone] 05/26/2023 9:15 AM CDT Office Visit Department of Ophthalmology in [place], [place] [address] [place] [address] Madison Caicedo M.D. [address] [place] [address] 05/26/2023 1:20 PM CDT Appointment Outpatient Procedure Center in [place], [place] [address] [place] [address] Madison Caicedo M.D. [address] [place] [address] documented as of this encounter Results * [...] 25 mg/mL ??Route: intravitreal, Site: Right Eye ??[facility]: 30414-613-09 Balanced salt solution irrigation to injected eye [...] and return schedule given if requested. LOT: [id number] EXP: 07/15/2022 Teodoro Pedroza M.D. [facility] PROCEDU RES documented in this encounter Visit Diagnoses Not on filedocumented in this encounter Care Teams Media Center Assistant Relationship Specialty Start Date End Date Elsewhere, Pcp PCP - General Family Medicine 02/17/17 documented as of this encounter
--- OUTSIDE RECORDS SUMMARY | 2023-04-12 06:34 | XMS_ITS | Encounter Summary ---
Author Name Unknown Organization [facility] Address [address] [place] [address] Care Team Providers Care Construction Helper Name Role Phone Elsewhere, Pcp Primary Care Provider Unavailabl e Reason for Visit * Outpatient (Routine) - Authorized Specialty Diagnoses / Procedures Referred By Contac t Referred To Contact Ophthalmology Diagnoses . Procedures OPH TEST VISUAL ACUITY CHECK [facility] Rst Oph [place] [address] [place] [address] Referral ID Status Reason Start Date Expiration Date V isits Requested Visits Authorized [id number] Authorized 06/08/2022 06/08/2023 4 4 Encounter Details Date Type Department Care Team (Latest Contact Info) Description 06/08/2022 9:30 AM CDT Ancillary Procedure Department of Ophthalmology in [place], [place] [address] [place] [phone] Madison Caicedo M.D. [address] [place] [address] Diabetes Mellitus Type 2 With Mild Nonproliferative [...] (Latest Contact Info) Description 04/18/2023 1:10 PM GAS TORCH SOLDERER Ancillary Procedure Department of Ophthalmology in [address] [address] 04/18/2023 1:30 PM GAS TORCH SOLDERER Appointment Outpatient Procedure Center in [address] [address] Madison Caicedo M.D. [address] [place] [phone] Discharge Disposition: Home or Self Care 05/23/2023 9:45 AM CDT Clinical Communication Virtual Review in [address] [address] 05/26/2023 8:30 AM CDT Ancillary Procedure Department of Ophthalmology in [address] [address] Madison Caicedo M.D. [address] [place] [phone] 05/26/2023 9:00 AM CDT Ancillary Procedure Department of Ophthalmology in [address] [address] Madison Caicedo M.D. [address] [place] [phone] 05/26/2023 9:15 AM CDT Office Visit Department of Ophthalmology in [address] [address] Madison Caicedo M.D. [address] [place] [phone] 05/26/2023 1:20 PM CDT Appointment Outpatient Procedure Center in [place], [place] [address] [place] [address] Madison Caicedo M.D. [address] [place] [address] documented as of this encounter Procedures Procedure [...] (HCC) documented in this encounter Care Teams Construction Helper Relationship Specialty Start Date End Date Elsewhere, Pcp PCP - General Family Medicine 02/17/17 documented as of this encounter
--- OUTSIDE RECORDS SUMMARY | 2023-04-12 06:34 | XMS_ITS | Encounter Summary ---
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 [address] [place] [address] [facility] Referral ID Status Reason Start Date Expiration Date Visits Re quested Visits Authorized [id number] Closed 05/13/2022 05/13/2023 1 1 Encounter Details Date Type Department Care Team (Latest Contact Info) Description 06/10/2022 8:30 AM CDT Comprehensive Visit Department of Ophthalmology in [place], [place] [address] [place] [phone] Madison Caicedo M.D. [address] [place] [address] Diabetes Mellitus Due To Underlying [...] left eye: no neovascularization, macular hyperfluorescence temporal; [facility] OCT macula: 06/10/2022 right eye: macular edema [...] last injection with OCT macula Injection location: [facility] injection slot documented in this encounter Plan of Treatment Upcoming Encounters Date Type Department Care Team (Latest Contact Info) Description 04/18/2023 1:10 PM ELECTRONIC ENGRAVER Ancillary Procedure Department of Ophthalmology in [address] [address] 04/18/2023 1:30 PM ELECTRONIC ENGRAVER Appointment Outpatient Procedure Center in [address] [address] Madison Caicedo M.D. [address] [place] [phone] Discharge Disposition: Home or Self Care 05/23/2023 9:45 AM CDT Clinical Communication Virtual Review in [address] [address] 05/26/2023 8:30 AM CDT Ancillary Procedure Department of Ophthalmology in [address] [address] Madison Caicedo M.D. [address] [place] [phone] 05/26/2023 9:00 AM CDT Ancillary Procedure Department of Ophthalmology in [address] [address] Madison Caicedo M.D. [address] [place] [phone] 05/26/2023 9:15 AM CDT Office Visit Department of Ophthalmology in [address] [address] Madison Caicedo M.D. [address] [place] [phone] 05/26/2023 1:20 PM CDT Appointment Outpatient Procedure Center in [place], [place] [address] [place] [address] Madison Caicedo M.D. 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
--- OUTSIDE RECORDS SUMMARY | 2023-04-12 06:34 | XMS_ITS | Encounter Summary ---
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 [address] [place] [address] Rst Oph Shaila [address] [place] [phone] Referral ID Status Reason Start Date Expiration Date Visits Re quested Visits Authorized [id number] Closed 06/08/2022 06/08/2023 1 1 Encounter Details Date Type Department Care Team (Latest Contact Info) Description 06/08/2022 10:15 AM CDT Procedure visit Department of Ophthalmology in [place], [place] [address] [place] [address] Madison Jade M.D. [address] [place] [address] Vijay Mejia Diabetes Mellitus Type [...] (Latest Contact Info) Description 04/18/2023 1:10 PM WOUND SPECIALIST Ancillary Procedure Department of Ophthalmology in [address] [address] 04/18/2023 1:30 PM WOUND SPECIALIST Appointment Outpatient Procedure Center in [address] [address] Madison Jade M.D. [address] [place] [phone] Discharge Disposition: Home or Self Care 05/23/2023 9:45 AM CDT Clinical Communication Virtual Review in [place], [place] 200 [place] [address] 05/26/2023 8:30 AM CDT Ancillary Procedure Department of Ophthalmology in [address] [address] Madison Jade M.D. [address] [place] [phone] 05/26/2023 9:00 AM CDT Ancillary Procedure Department of Ophthalmology in [place], [place] [address] [place] [phone] Madison Jade M.D. [address] [place] [address] 05/26/2023 9:15 AM CDT Office Visit Department of Ophthalmology in [place], [place] [address] [place] [address] Madison Jade M.D. [address] [place] [phone] 05/26/2023 1:20 PM CDT Appointment Outpatient Procedure Center in [place], [place] [address] [place] [phone] Madison Jade M.D. [address] [place] [phone] documented as of this encounter Procedures Procedure [...] mg documented in this encounter Care Teams Crm System Administrator Relationship Specialty Start Date End Date Elsewhere, Pcp PCP - General Family Medicine 02/17/17 documented as of this encounter
--- OUTSIDE RECORDS SUMMARY | 2023-04-12 06:34 | XMS_ITS | Encounter Summary ---
Author Name Unknown Organization [facility] Address [address] [place] [address] Care Team Providers Care Animal Taxonomist Name Role Phone Elsewhere, Pcp Primary Care [...] Contact Info) Description 04/18/2023 1:10 PM FORESTRY HUNTER Ancillary Procedure Department of Ophthalmology in [place], [place] [address] [place] [address] 04/18/2023 1:30 PM FORESTRY HUNTER Appointment Outpatient Procedure Center in [place], [place] [address] [place] [phone] Madison Caicedo M.D. [address] [place] [phone] Discharge Disposition: Home or Self Care 05/23/2023 9:45 AM CDT Clinical Communication Virtual Review in [place], [place] 200 [place] [address] 05/26/2023 8:30 AM CDT Ancillary Procedure Department of Ophthalmology in [place], [place] [address] [place] [address] Madison Caicedo M.D. [address] [place] [phone] 05/26/2023 9:00 AM CDT Ancillary Procedure Department of Ophthalmology in [address] [address] Madison Caicedo M.D. [address] [place] [phone] 05/26/2023 9:15 AM CDT Office Visit Department of Ophthalmology in [address] [address] Madison Caicedo M.D. [address] [place] [phone] 05/26/2023 1:20 PM CDT Appointment Outpatient Procedure Center in [address] [address] aMdison Caicedo M.D. [address] [place] [phone] documented as of this encounter Procedures Procedure [...] filedocumented in this encounter Care Teams Animal Taxonomist Relationship Specialty Start Date End Date Elsewhere, Pcp PCP - General Family Medicine 02/17/17 documented as of this encounter
--- OUTSIDE RECORDS SUMMARY | 2023-04-12 06:34 | XMS_ITS | Encounter Summary ---
Author Name Unknown Organization [facility] Address [address] [place] [address] Care Team Providers Care Culture Media Laboratory Assistant Name Role Phone Elsewhere, Pcp Primary Care Provider Unavailabl e Encounter Details Date Type Department Care Team (Latest Contact Info) Description 05/28/2022 Clinical Communication Department of Ophthalmology in [place], [place] [address] [place] [address] Madison Caicedo M.D. [address] [place] [address] Social History Tobacco Use Types Packs/Day Years [...] (Latest Contact Info) Description 04/18/2023 1:10 PM MARKETING INSTRUCTOR Ancillary Procedure Department of Ophthalmology in [place], [place] [address] [place] [address] 04/18/2023 1:30 PM MARKETING INSTRUCTOR Appointment Outpatient Procedure Center in [place], [place] [address] [place] [phone] Madison Caicedo M.D. [address] [place] [phone] Discharge Disposition: Home or Self Care 05/23/2023 9:45 AM CDT Clinical Communication Virtual Review in [place], [place] 200 [place] [address] 05/26/2023 8:30 AM CDT Ancillary Procedure Department of Ophthalmology in [place], [place] [address] [place] [address] Madison Caicedo M.D. [address] [place] [phone] 05/26/2023 9:00 AM CDT Ancillary Procedure Department of Ophthalmology in [place], [place] [address] [place] [phone] Madison Caicedo M.D. [address] [place] [phone] 05/26/2023 9:15 AM CDT Office Visit Department of Ophthalmology in [place], [place] [address] [place] [phone] Madison Caicedo M.D. [address] [place] [phone] 05/26/2023 1:20 PM CDT Appointment Outpatient Procedure Center in [place], [place] [address] [place] [phone] Madison Caicedo M.D. [address] [place] [phone] documented as of this encounter Visit Diagnoses Not on filedocumented in this encounter Care Teams Culture Media Laboratory Assistant Relationship Specialty Start Date End Date Elsewhere, Pcp PCP - General Family Medicine 02/17/17 documented as of this encounter
--- OUTSIDE RECORDS SUMMARY | 2023-04-12 06:34 | XMS_ITS | Encounter Summary ---
Author Name Unknown Organization [facility] Address [address] [place] [address] Care Team Providers Care Splitting Machine Feeder Name Role Phone Elsewhere, Pcp [...] (Latest Contact Info) Description 04/18/2023 1:10 PM BROWNING PROCESSOR Ancillary Procedure Department of Ophthalmology in [place], [place] [address] [place] [phone] 04/18/2023 1:30 PM BROWNING PROCESSOR Appointment Outpatient Procedure Center in [place], [place] [address] [place] [phone] Madison Caicedo M.D. [address] [place] [phone] Discharge Disposition: Home or Self Care 05/23/2023 9:45 AM CDT Clinical Communication Virtual Review in [place], [place] 200 [place] [address] 05/26/2023 8:30 AM CDT Ancillary Procedure Department of Ophthalmology in [place], [place] [address] [place] [phone] Madison Caicedo M.D. [address] [place] [phone] 05/26/2023 9:00 AM CDT Ancillary Procedure Department of Ophthalmology in [address] [address] Madison Caicedo M.D. [address] [place] [phone] 05/26/2023 9:15 AM CDT Office Visit Department of Ophthalmology in [address] [address] Madison Caicedo M.D. [address] [place] [phone] 05/26/2023 1:20 PM CDT Appointment Outpatient Procedure Center in [address] [address] Madison Caicedo M.D. [address] [place] [phone] documented as of this encounter Procedures Procedure [...] on filedocumented in this encounter Care Teams Splitting Machine Feeder Relationship Specialty Start Date End Date Elsewhere, Pcp PCP - General Family Medicine 02/17/17 documented as of this encounter
--- OUTSIDE RECORDS SUMMARY | 2023-04-12 06:34 | XMS_ITS | Encounter Summary ---
Author Name Unknown Organization [facility] Address [address] [place] [address] Care Team Providers Care Last Turner Name Role Phone Elsewhere, Pcp Primary Care Provider Unavailabl e Reason for Referral * Outpatient (Routine) - Closed Specialty Diagnoses / Procedures Referred By Araceli garza Referred To Contact Ophthalmology Madison Caicedo M.D. [address] [place] [address] [facility] Referral ID Status Reason Start Date Expiration Date Visits Re quested Visits Authorized [id number] Closed 06/10/2022 06/09/2025 1 1 Scheduling Instructions Plan: 06/10/2022 ?? RIGHT EYE: Avastin right eye for Diabetic Macular Edema Follow up for 3 more Avastin in the right eye every 4-5 weeks. ?? 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 [address] [place] [phone] [facility] Referral ID Status Reason Start Date Expiration Date Visits Re quested Visits Authorized [id number] Closed 06/10/2022 06/10/2023 3 3 Encounter Details Date Type Department Care Team (Latest Contact Info) Description 06/10/2022 Orders Only Department of Ophthalmology in [place], [place] [address] [place] [phone] Tamar Younger C.O.A. [address] [place] [phone] Diabetes Mellitus Type 2 With Mild Nonproliferative [...] (Latest Contact Info) Description 04/18/2023 1:10 PM CREATIVE/ART DIRECTOR Ancillary Procedure Department of Ophthalmology in [place], [place] [address] [place] [address] 04/18/2023 1:30 PM CREATIVE/ART DIRECTOR Appointment Outpatient Procedure Center in [place], [place] [address] [place] [phone] Madison Caicdeo M.D. [address] [place] [phone] Discharge Disposition: Home or Self Care 05/23/2023 9:45 AM CDT Clinical Communication Virtual Review in [place], [place] 200 [place] [address] 05/26/2023 8:30 AM CDT Ancillary Procedure Department of Ophthalmology in [address] [address] Madison Caicedo M.D. [address] [place] [phone] 05/26/2023 9:00 AM CDT Ancillary Procedure Department of Ophthalmology in [place], [place] [address] [place] [phone] Madison Caicedo M.D. [address] [place] [phone] 05/26/2023 9:15 AM CDT Office Visit Department of Ophthalmology in [address] [address] Madison Caicedo M.D. [address] [place] [phone] 05/26/2023 1:20 PM CDT Appointment Outpatient Procedure Center in [address] [address] Madison Caicedo M.D. [address] [place] [phone] Scheduled Orders Name Type Priority Associated Diagnoses [...] (HCC) documented in this encounter Care Teams Last Turner Relationship Specialty Start Date End Date Elsewhere, Pcp PCP - General Family Medicine 02/17/17 documented as of this encounter
--- OUTSIDE RECORDS SUMMARY | 2023-04-12 06:34 | XMS_ITS | Encounter Summary ---
Author Name Unknown Organization [facility] Address [address] [place] [address] Care Team Providers Care Linux Devops Engineer Name Role Phone Elsewhere, Pcp Primary Care Provider Unavailabl e Encounter Details Date Type Department Care Team (Latest Contact Info) Description 06/10/2022 3:58 PM CDT - 06/10/2022 11:59 PM CDT Hospital Encounter Outpatient Procedure Center in [place], [place] [address] [place] [address] Teodoro Pedroza M.D. [address] [place] [address] Discharge Disposition: Home or Self [...] (Latest Contact Info) Description 04/18/2023 1:10 PM WANT AD SUPERVISOR Ancillary Procedure Department of Ophthalmology in [address] [address] 04/18/2023 1:30 PM WANT AD SUPERVISOR Appointment Outpatient Procedure Center in [address] [address] Madison Caicedo M.D. [address] [place] [phone] Discharge Disposition: Home or Self Care 05/23/2023 9:45 AM CDT Clinical Communication Virtual Review in [place], [place] 200 [place] [address] 05/26/2023 8:30 AM CDT Ancillary Procedure Department of Ophthalmology in [address] [address] Madison Caicedo M.D. [address] [place] [phone] 05/26/2023 9:00 AM CDT Ancillary Procedure Department of Ophthalmology in [address] [address] Madison Caicedo M.D. [address] [place] [phone] 05/26/2023 9:15 AM CDT Office Visit Department of Ophthalmology in [place], [place] [address] [place] [address] Madison Caicedo M.D. [address] [place] [address] 05/26/2023 1:20 PM CDT Appointment Outpatient Procedure Center in [place], [place] [address] [place] [address] Madison Caicedo M.D. [address] [place] [address] documented as of this encounter Procedures Procedure [...] Eye ??[facility]: 56424-022-28 Balanced salt solution irrigation to injected eye [...] and return schedule given if requested. LOT: [id number] EXP: 07/15/2022 Teodoro Pedroza M.D. [facility] PROCEDU RES documented in this encounter Visit Diagnoses Not on filedocumented in this encounter Care Teams Linux Devops Engineer Relationship Specialty Start Date End Date Elsewhere, Pcp PCP - General Family Medicine 02/17/17 documented as of this encounter
--- OUTSIDE RECORDS SUMMARY | 2023-04-12 06:34 | XMS_ITS | Encounter Summary ---
Author Name Unknown Organization [facility] Address [address] [place] [address] Care Team Providers Care Registered Nurse Hh Case Manager Name Role Phone Elsewhere, Pcp Primary Care Provider Unavailabl e Reason for Visit * Reason Comments Diabetic Eye Exam * Outpatient (Routine) - Closed Specialty Diagnoses / Procedures Referred By Araceli garza Referred To Contact Ophthalmology Wendy Padilla O.D. [address] [place] [address] [facility] Referral ID Status Reason Start Date Expiration Date Visits Re quested Visits Authorized [id number] Closed 02/15/2022 02/14/2025 1 1 Encounter Details Date Type Department Care Team (Latest Contact Info) Description 05/13/2022 2:30 PM CDT Office Visit Department of Ophthalmology in [place], [place] [address] [place] [phone] Wendy Padilla O.D. [address] [place] [phone] Diabetes Mellitus Type 2 With Mild Nonproliferative [...] (Latest Contact Info) Description 04/18/2023 1:10 PM DOMESTIC HELPER Ancillary Procedure Department of Ophthalmology in [place], [place] [address] [place] [address] 04/18/2023 1:30 PM DOMESTIC HELPER Appointment Outpatient Procedure Center in [place], [place] [address] [place] [phone] Madison Caicedo M.D. [address] [place] [phone] Discharge Disposition: Home or Self Care 05/23/2023 9:45 AM CDT Clinical Communication Virtual Review in [place], [place] 200 [place] [address] 05/26/2023 8:30 AM CDT Ancillary Procedure Department of Ophthalmology in [place], [place] [address] [place] [phone] Madison Caicedo M.D. [address] [place] [phone] 05/26/2023 9:00 AM CDT Ancillary Procedure Department of Ophthalmology in [place], [place] [address] [place] [phone] Madison Caicedo M.D. [address] [place] [phone] 05/26/2023 9:15 AM CDT Office Visit Department of Ophthalmology in [address] [address] Madison Caicedo M.D. [address] [place] [phone] 05/26/2023 1:20 PM CDT Appointment Outpatient Procedure Center in [address] [address] Madison Caicedo M.D. 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
--- OUTSIDE RECORDS SUMMARY | 2023-04-12 06:34 | XMS_ITS | Encounter Summary ---
Author Name Unknown Organization [facility] Address [address] [place] [address] Care Team Providers Care Needle Loom Operator Helper Name Role Phone Elsewhere, Pcp Primary Care Provider Unavailabl e Encounter Details Date Type Department Care Team (Latest Contact Info) Description 06/03/2022 Clinical Communication Department of Ophthalmology in [place], [place] [address] [place] [address] Madison Caicedo M.D. [address] [place] [address] Social History Tobacco Use Types Packs/Day Years [...] (Latest Contact Info) Description 04/18/2023 1:10 PM LEI MAKER Ancillary Procedure Department of Ophthalmology in [place], [place] [address] [place] [address] 04/18/2023 1:30 PM LEI MAKER Appointment Outpatient Procedure Center in [place], [place] [address] [place] [phone] Madison Caicedo M.D. [address] [place] [phone] Discharge Disposition: Home or Self Care 05/23/2023 9:45 AM CDT Clinical Communication Virtual Review in [place], [place] 200 [place] [address] 05/26/2023 8:30 AM CDT Ancillary Procedure Department of Ophthalmology in [place], [place] [address] [place] [phone] Madison Caicedo M.D. [address] [place] [phone] 05/26/2023 9:00 AM CDT Ancillary Procedure Department of Ophthalmology in [place], [place] [address] [place] [phone] Madison Caicedo M.D. [address] [place] [phone] 05/26/2023 9:15 AM CDT Office Visit Department of Ophthalmology in [place], [place] [address] [place] [phone] Madison Caicedo M.D. [address] [place] [phone] 05/26/2023 1:20 PM CDT Appointment Outpatient Procedure Center in [place], [place] [address] [place] [phone] Madison Caicedo M.D. [address] [place] [phone] documented as of this encounter Visit Diagnoses Not on filedocumented in this encounter Care Teams Needle Loom Operator Helper Relationship Specialty Start Date End Date Elsewhere, Pcp PCP - General Family Medicine 02/17/17 documented as of this encounter
--- OUTSIDE RECORDS SUMMARY | 2023-04-12 06:34 | XMS_ITS | Encounter Summary ---
Author Name Unknown Organization [facility] Address [address] [place] [address] Care Team Providers Care Curator Natural History Museum Name Role Phone Elsewhere, Pcp Primary Care [...] INJECTION INTRAVITREAL Madison Caicedo M.D. 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 [address] [place] [address] [facility] Referral ID Status Reason Start Date Expiration Date Visits Re quested Visits Authorized [id number] Closed 06/02/2022 06/02/2023 1 1 Encounter Details Date Type Department Care Team (Latest Contact Info) Description 06/10/2022 3:12 PM CDT - 06/10/2022 3:57 PM CDT Hospital Encounter Outpatient Procedure Center in [place], [place] [address] [place] [address] Madison Caicedo M.D. [address] [place] [address] Diabetes Mellitus Type 2 With Mild Nonproliferative [...] (Latest Contact Info) Description 04/18/2023 1:10 PM RECEIVING INSPECTOR Ancillary Procedure Department of Ophthalmology in [place], [place] [address] [place] [phone] 04/18/2023 1:30 PM RECEIVING INSPECTOR Appointment Outpatient Procedure Center in [address] [address] Madison Caicedo M.D. [address] [place] [phone] Discharge Disposition: Home or Self Care 05/23/2023 9:45 AM CDT Clinical Communication Virtual Review in [place], [place] [address] [place] [address] 05/26/2023 8:30 AM CDT Ancillary Procedure Department of Ophthalmology in [address] [address] Madison Caicedo M.D. [address] [place] [phone] 05/26/2023 9:00 AM CDT Ancillary Procedure Department of Ophthalmology in [address] [address] Madison Caicedo M.D. [address] [place] [phone] 05/26/2023 9:15 AM CDT Office Visit Department of Ophthalmology in [address] [address] Madison Caicedo M.D. [address] [place] [phone] 05/26/2023 1:20 PM CDT Appointment Outpatient Procedure Center in [address] [address] Madison Caicedo M.D. [address] [place] [phone] documented as of this encounter Procedures Procedure [...] intravitreal, Site: Right Eye ??[facility]: 334[address]-232-63 Balanced salt solution irrigation to injected eye [...] and return schedule given if requested. LOT: [id number] EXP: 07/15/2022 Teodoro Pedroza M.D. OPHTH CLINIC [...] For 365 days Given 03/15/2023 1:47 PM RECEIVING INSPECTOR 30 mL Given 02/15/2023 2:30 PM RECEIVING INSPECTOR 30 mL Given 01/18/2023 2:55 PM RECEIVING INSPECTOR 30 mL carboxymethylcellulose 1 % ophthalmic solution 1 drop (THERATEARS) 1 drop, right eye, As needed, dry eyes, DIRECTED OPHTHALMIC IN OR, Starting on Itzel 06/10/22 at 0918, For 365 days Given 03/15/2023 1:48 PM RECEIVING INSPECTOR 1 drop Given 02/15/2023 2:30 PM RECEIVING INSPECTOR 1 drop Given 01/18/2023 2:55 PM RECEIVING INSPECTOR 1 drop povidone-iodine 5 % ophthalmic solution 1 drop (BETADINE) 1 drop, right eye, As needed, irrigation, DIRECTED OPHTHALMIC IN OR, Starting on Tue06/10/22 at 0918, For 365 days, Irrigate ocular and periocular region and leave for 2 mins; then flush with sterile saline solution. Given 03/15/2023 1:48 PM RECEIVING INSPECTOR 1 drop Given 02/15/2023 2:30 PM RECEIVING INSPECTOR 1 drop Given 01/18/2023 2:55 PM RECEIVING INSPECTOR 1 drop proparacaine 0.5 % ophthalmic solution 1 drop (ALCAINE) 1 drop, right eye, As needed, DIRECTED OPHTHALMIC IN OR, Starting on Itzel 06/10/22 at 0918, For 365 days Given 03/15/2023 1:48 PM RECEIVING INSPECTOR 1 drop Given 02/15/2023 2:30 PM RECEIVING INSPECTOR 1 drop Given 01/18/2023 2:55 PM RECEIVING INSPECTOR 1 drop tetracaine (PF) 0.5 % ophthalmic solution 1 drop (ALTACAINE) 1 drop, right eye, As needed, DIRECTED OPHTHALMIC IN OR, Starting on Itzel 06/10/22 at 0918, For 365 days Given 03/15/2023 1:47 PM RECEIVING INSPECTOR 1 drop Given 02/15/2023 2:30 PM RECEIVING INSPECTOR 1 drop Given 01/18/2023 2:55 PM RECEIVING INSPECTOR 1 drop Inactive Administered Medications - up to 3 most recent administrations Medication Order MAR Action Action Date Dose Rate Site bevacizumab intraocular injection 1.25 mg (AVASTIN) 1.25 mg, intravitreal, As needed, DIRECTED OPHTHALMIC IN OR, Starting on Itzel 06/10/22 at 0918, Inject into right eye. Given 06/10/2022 4:19 PM CDT 1.25 mg Right Eye documented in this encounter Care Teams Curator Natural History Museum Relationship Specialty Start Date End Date Elsewhere, Pcp PCP - General Family Medicine 02/17/17 documented as of this encounter
--- OUTSIDE RECORDS SUMMARY | 2023-04-12 06:34 | XMS_ITS | Encounter Summary ---
Author Name Unknown Organization [facility] Address [address] [place] [address] Care Team Providers Care Medical Affairs Leader Name Role Phone Elsewhere, Pcp Primary Care Provider Unavailabl e Encounter Details Date Type Department Care Team (Latest Contact Info) Description 06/10/2022 Orders Only Department of Ophthalmology in [place], [place] [address] [place] [address] Tamar Younger C.O.A. [address] [place] [address] Diabetes Mellitus Due To Underlying Condition With [...] (Latest Contact Info) Description 04/18/2023 1:10 PM AREA ATTENDANT Ancillary Procedure Department of Ophthalmology in [place], [place] [address] [place] [address] 04/18/2023 1:30 PM AREA ATTENDANT Appointment Outpatient Procedure Center in [place], [place] [address] [place] [phone] Madison Caicedo M.D. [address] [place] [phone] Discharge Disposition: Home or Self Care 05/23/2023 9:45 AM CDT Clinical Communication Virtual Review in [place], [place] 200 [place] [address] 05/26/2023 8:30 AM CDT Ancillary Procedure Department of Ophthalmology in [place], [place] [address] [place] [phone] Madison Caicedo M.D. [address] [place] [phone] 05/26/2023 9:00 AM CDT Ancillary Procedure Department of Ophthalmology in [place], [place] [address] [place] [phone] Madison Caicedo M.D. [address] [place] [phone] 05/26/2023 9:15 AM CDT Office Visit Department of Ophthalmology in [address] [address] Madison Caicedo M.D. [address] [place] [phone] 05/26/2023 1:20 PM CDT Appointment Outpatient Procedure Center in [place], [place] [address] [place] [phone] Madison Caicedo M.D. 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
--- OUTSIDE RECORDS SUMMARY | 2023-04-12 06:34 | XMS_ITS | Encounter Summary ---
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 [address] [place] [address] [facility] Referral ID Status Reason Start Date Expiration Date Visits Re quested Visits Authorized [id number] Closed 05/13/2022 05/13/2023 1 1 Scheduling Instructions Needed within 4-6 weeks Encounter Details Date Type Department Care Team (Latest Contact Info) Description 05/13/2022 Orders Only Department of Ophthalmology in [place], [place] [address] [place] [address] Tone Stephenson, C.O.AKee [address] [place] [address] Diabetes Mellitus Type 2 With [...] (Latest Contact Info) Description 04/18/2023 1:10 PM ZONING ASSISTANT Ancillary Procedure Department of Ophthalmology in [address] [address] 04/18/2023 1:30 PM ZONING ASSISTANT Appointment Outpatient Procedure Center in [address] [address] Madison Caicedo M.D. [address] [place] [phone] Discharge Disposition: Home or Self Care 05/23/2023 9:45 AM CDT Clinical Communication Virtual Review in [address] [address] 05/26/2023 8:30 AM CDT Ancillary Procedure Department of Ophthalmology in [address] [address] Madison Caicedo M.D. [address] [place] [phone] 05/26/2023 9:00 AM CDT Ancillary Procedure Department of Ophthalmology in [address] [address] Madison Caicedo M.D. [address] [place] [phone] 05/26/2023 9:15 AM CDT Office Visit Department of Ophthalmology in [address] [phone] Madison Caicedo M.D. [address] [place] [address] 05/26/2023 1:20 PM CDT Appointment Outpatient Procedure Center in [place], [place] [address] [place] [address] Madison Caicedo M.D. [address] [place] [address] Scheduled Referrals Name Type Priority Associated Diagnoses [...] Primary documented in this encounter Care Teams Employment Coordinator Relationship Specialty Start Date End Date Elsewhere, Pcp PCP - General Family Medicine 02/17/17 documented as of this encounter
--- OUTSIDE RECORDS SUMMARY | 2023-04-12 06:34 | XMS_ITS | Encounter Summary ---
Author Name Unknown Organization [facility] Address [address] [place] [address] Care Team Providers Care Class B Truck Driver Name Role Phone Elsewhere, Pcp Primary [...] INJECTION INTRAVITREAL Madison Caicedo M.D. [address] [place] [address] [facility] Referral ID Status Reason Start Date Expiration Date Visits Re quested Visits Authorized [id number] Closed 06/02/2022 06/02/2023 1 1 Encounter Details Date Type Department Care Team (Latest Contact Info) Description 06/02/2022 Orders Only Department of Ophthalmology in [place], [place] [address] [place] [phone] Lopez Longoria, C.O.A. Diabetes Mellitus Type 2 [...] (Latest Contact Info) Description 04/18/2023 1:10 PM TROLLEY WORKER Ancillary Procedure Department of Ophthalmology in [address] [address] 04/18/2023 1:30 PM TROLLEY WORKER Appointment Outpatient Procedure Center in [address] [address] Madison Caicedo M.D. [address] [place] [phone] Discharge Disposition: Home or Self Care 05/23/2023 9:45 AM CDT Clinical Communication Virtual Review in [address] [address] 05/26/2023 8:30 AM CDT Ancillary Procedure Department of Ophthalmology in [address] [address] Madison Caicedo M.D. [address] [place] [phone] 05/26/2023 9:00 AM CDT Ancillary Procedure Department of Ophthalmology in [address] [address] Madison Caicedo M.D. [address] [place] [phone] 05/26/2023 9:15 AM CDT Office Visit Department of Ophthalmology in [address] [phone] Madison Caicedo M.D. [address] [place] [address] 05/26/2023 1:20 PM CDT Appointment Outpatient Procedure Center in [place], [place] [address] [place] [address] Madison Caicedo M.D. [address] [place] [address] documented as of this encounter Results * [...] Caicedo M.D. OPHTH TOMOGRAPHY Performing Organization Address [facility] Co de Phone Number OPHTHALMOLOGY IMAGING EXAM [...] Caicedo M.D. OPHTH PHOTOGRAPHY Performing Organization Address [facility] Co de Phone Number OPHTHALMOLOGY IMAGING EXAM [...] (HCC) documented in this encounter Care Teams Class B Truck Driver Relationship Specialty Start Date End Date Elsewhere, Pcp PCP - General Family Medicine 02/17/17 documented as of this encounter
--- OUTSIDE RECORDS SUMMARY | 2023-04-12 06:34 | XMS_ITS | Encounter Summary ---
Author Name Unknown Organization [facility] Address [address] [place] [address] Care Team Providers Care Air Carrier Operations Inspector Name Role Phone Elsewhere, Pcp Primary Care Provider Unavailabl e Reason for Visit * Outpatient (Routine) - Authorized Specialty Diagnoses / Procedures Referred By Contac t Referred To Contact Ophthalmology Diagnoses . Procedures OPH TEST VISUAL ACUITY CHECK [facility] Rst Oph [place] [address] [place] [address] Referral ID Status Reason Start Date Expiration Date V isits Requested Visits Authorized [id number] Authorized 06/08/2022 06/08/2023 4 4 Encounter Details Date Type Department Care Team (Latest Contact Info) Description 06/08/2022 8:50 AM CDT Ancillary Procedure Department of Ophthalmology in [place], [place] [address] [place] [phone] Madison Caicedo M.D. 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 [address] [place] [phone] Discharge Disposition: Home or Self Care 05/23/2023 9:45 AM CDT Clinical Communication Virtual Review in [address] [address] 05/26/2023 8:30 AM CDT Ancillary Procedure Department of Ophthalmology in [address] [address] Madison Caicedo M.D. [address] [place] [phone] 05/26/2023 9:00 AM CDT Ancillary Procedure Department of Ophthalmology in [address] [address] Madison Caicedo M.D. [address] [place] [phone] 05/26/2023 9:15 AM CDT Office Visit Department of Ophthalmology in [address] [address] Madison Caicedo M.D. [address] [place] [phone] 05/26/2023 1:20 PM CDT Appointment Outpatient Procedure Center in [place], [place] [address] [place] [address] Madison Caicedo M.D. [address] [place] [address] documented as of this encounter Procedures Procedure [...] (HCC) documented in this encounter Care Teams Air Carrier Operations Inspector Relationship Specialty Start Date End Date Elsewhere, Pcp PCP - General Family Medicine 02/17/17 documented as of this encounter
--- OUTSIDE RECORDS SUMMARY | 2023-04-12 06:34 | XMS_ITS | Encounter Summary ---
Author Name Unknown Organization [facility] Address [address] [place] [address] Care Team Providers Care Resistance Welding Machine Operator Name Role Phone Elsewhere, Pcp Primary Care Provider Unavailabl e Encounter Details Date Type Department Care Team ( Contact Info) Description 06/08/2022 9:25 AM CDT [...] Contact Info) Description 04/18/2023 1:10 PM MANAGER REHAB Ancillary Procedure Department of Ophthalmology in [place], [place] [address] [place] [address] 04/18/2023 1:30 PM MANAGER REHAB Appointment Outpatient Procedure Center in [place], [place] [address] [place] [address] Madison Caicedo M.D. [address] [place] [phone] Discharge Disposition: Home or Self Care 05/23/2023 9:45 AM CDT Clinical Communication Virtual Review in [place], [place] 200 [place] [address] 05/26/2023 8:30 AM CDT Ancillary Procedure Department of Ophthalmology in [place], [place] [address] [place] [phone] Madison Caicedo M.D. [address] [place] [phone] 05/26/2023 9:00 AM CDT Ancillary Procedure Department of Ophthalmology in [place], [place] [address] [place] [phone] Madison Caicedo M.D. [address] [place] [phone] 05/26/2023 9:15 AM CDT Office Visit Department of Ophthalmology in [place], [place] [address] [place] [phone] Madison Caicedo M.D. [address] [place] [phone] 05/26/2023 1:20 PM CDT Appointment Outpatient Procedure Center in [address] [address] Madison Caicedo M.D. [address] [place] [phone] documented as of this encounter Procedures Procedure [...] on filedocumented in this encounter Care Teams Resistance Welding Machine Operator Relationship Specialty Start Date End Date Elsewhere, Pcp PCP - General Family Medicine 02/17/17 documented as of this encounter
--- OUTSIDE RECORDS SUMMARY | 2023-04-12 06:34 | XMS_ITS | Encounter Summary ---
Author Name Unknown Organization [facility] Address [address] [place] [address] Care Team Providers Care Enrichment Specialist Name Role Phone Elsewhere, Pcp Primary Care Provider Unavailabl e Reason for Visit * Outpatient (Routine) - Authorized Specialty Diagnoses / Procedures Referred By Contac t Referred To Contact Ophthalmology Diagnoses . Procedures OPH TEST VISUAL ACUITY CHECK [facility] Rst Oph [place] [address] [place] [address] Referral ID Status Reason Start Date Expiration Date V isits Requested Visits Authorized [id number] Authorized 06/08/2022 06/08/2023 4 4 Encounter Details Date Type Department Care Team (Latest Contact Info) Description 06/08/2022 10:30 AM CDT Ancillary Procedure Department of Ophthalmology in [place], [place] [address] [place] [phone] Madison Caicedo M.D. 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 [address] [place] [phone] Discharge Disposition: Home or Self Care 05/23/2023 9:45 AM CDT Clinical Communication Virtual Review in [address] [address] 05/26/2023 8:30 AM CDT Ancillary Procedure Department of Ophthalmology in [address] [address] Mdaison Caicedo M.D. [address] [place] [phone] 05/26/2023 9:00 AM CDT Ancillary Procedure Department of Ophthalmology in [address] [address] Madison Caicedo M.D. [address] [place] [phone] 05/26/2023 9:15 AM CDT Office Visit Department of Ophthalmology in [address] [address] Madison Caicedo M.D. [address] [place] [phone] 05/26/2023 1:20 PM CDT Appointment Outpatient Procedure Center in [place], [place] [address] [place] [address] Madison Caicedo M.D. [address] [place] [address] documented as of this encounter Procedures Procedure [...] (HCC) documented in this encounter Care Teams Enrichment Specialist Relationship Specialty Start Date End Date Elsewhere, Pcp PCP - General Family Medicine 02/17/17 documented as of this encounter
--- OUTSIDE RECORDS SUMMARY | 2023-04-12 06:35 | XMS_ITS | Encounter Summary ---
Author Name Unknown Organization [facility] Address [address] [place] [address] Care Team Providers Care Cardiovascular Sonographer Name Role Phone Elsewhere, Pcp Primary Care Provider Unavailabl e Encounter Details Date Type Department Care Team (Late st Contact Info) Description 01/18/2006 Historical Ophthalmology RST OPH Deborah Hernández, C.O.A. [address] [place] [address] Social History Tobacco Use Types Packs/Day Years [...] left eye. CDM Reports - EYESV Id: [id number] Status: Fnl documented in this encounter Plan of Treatment Upcoming Encounters Date Type Department Care Team (Latest Contact Info) Description 04/18/2023 1:10 PM CORPORATE EXECUTIVE CHEF Ancillary Procedure Department of Ophthalmology in [place], [place] [address] [place] [phone] 04/18/2023 1:30 PM CORPORATE EXECUTIVE CHEF Appointment Outpatient Procedure Center in [place], [place] [address] [place] [phone] Madison Caicedo M.D. [address] [place] [phone] Discharge Disposition: Home or Self Care 05/23/2023 9:45 AM CDT Clinical Communication Virtual Review in [place], [place] 200 [place] [address] 05/26/2023 8:30 AM CDT Ancillary Procedure Department of Ophthalmology in [place], [place] [address] [place] [address] Madison Caicedo M.D. [address] [place] [address] 05/26/2023 9:00 AM CDT Ancillary Procedure Department of Ophthalmology in [place], [place] [address] [place] [address] Madison Caicedo M.D. [address] [place] [phone] 05/26/2023 9:15 AM CDT Office Visit Department of Ophthalmology in [address] [address] Madison Caicedo M.D. [address] [place] [phone] 05/26/2023 1:20 PM CDT Appointment Outpatient Procedure Center in [address] [address] Madison Caicedo M.D. [address] [place] [phone] documented as of this encounter Visit Diagnoses Not on filedocumented in this encounter Care Teams Cardiovascular Sonographer Relationship Specialty Start Date End Date Elsewhere, Pcp PCP - General Family Medicine 02/17/17 documented as of this encounter
--- OUTSIDE RECORDS SUMMARY | 2023-04-12 06:35 | XMS_ITS | Encounter Summary ---
Author Name Unknown Organization [facility] Address [address] [place] [address] Care Team Providers Care Shaping Machine Tender Name Role Phone Elsewhere, Pcp Primary Care Provider Unavailabl e Encounter Details Date Type Department Care Team (Late st Contact Info) Description 09/14/2005 Historical Ophthalmology RST OPH Trino Ron M.D. [address] [place] [address] Social History Tobacco Use Types [...] edema L>R CDM Reports - EYEGEN Id: [id number] Status: Fnl documented in this encounter Plan of Treatment Upcoming Encounters Date Type Department Care Team (Latest Contact Info) Description 04/18/2023 1:10 PM PRODUCTION CONTROL PLANNER Ancillary Procedure Department of Ophthalmology in [place], [place] [address] [place] [phone] 04/18/2023 1:30 PM PRODUCTION CONTROL PLANNER Appointment Outpatient Procedure Center in [place], [place] [address] [place] [phone] Madison Caicedo M.D. [address] [place] [phone] Discharge Disposition: Home or Self Care 05/23/2023 9:45 AM CDT Clinical Communication Virtual Review in [place], [place] 200 [place] [address] 05/26/2023 8:30 AM CDT Ancillary Procedure Department of Ophthalmology in [place], [place] [address] [place] [phone] Madison Caicedo M.D. [address] [place] [phone] 05/26/2023 9:00 AM CDT Ancillary Procedure Department of Ophthalmology in [address] [address] Madison Caicedo M.D. [address] [place] [phone] 05/26/2023 9:15 AM CDT Office Visit Department of Ophthalmology in [place], [place] [address] [place] [phone] Madison Caicedo M.D. [address] [place] [phone] 05/26/2023 1:20 PM CDT Appointment Outpatient Procedure Center in [address] [address] Madison Caicedo M.D. [address] [place] [phone] documented as of this encounter Visit Diagnoses Not on filedocumented in this encounter Care Teams Shaping Machine Tender Relationship Specialty Start Date End Date Elsewhere, Pcp PCP - General Family Medicine 02/17/17 documented as of this encounter
--- OUTSIDE RECORDS SUMMARY | 2023-04-12 06:35 | XMS_ITS | Encounter Summary ---
Author Name Unknown Organization [facility] Address [address] [place] [address] Care Team Providers Care Fly Worker Name Role Phone Elsewhere, Pcp Primary Care Provider Unavailabl e Encounter Details Date Type Department Care Team (Late st Contact Info) Description 01/18/2006 Historical Ophthalmology RST OPH Trino Ron M.D. [address] [place] [address] Social History Tobacco Use Types [...] edema L>R CDM Reports - EYEGEN Id: [id number] Status: Fnl documented in this encounter Plan of Treatment Upcoming Encounters Date Type Department Care Team (Latest Contact Info) Description 04/18/2023 1:10 PM DAY TRADER Ancillary Procedure Department of Ophthalmology in [address] [phone] 04/18/2023 1:30 PM DAY TRADER Appointment Outpatient Procedure Center in [address] [address] Madison Caicedo M.D. [address] [place] [phone] Discharge Disposition: Home or Self Care 05/23/2023 9:45 AM CDT Clinical Communication Virtual Review in [address] [address] 05/26/2023 8:30 AM CDT Ancillary Procedure Department of Ophthalmology in [address] [address] Madison Caicedo M.D. [address] [place] [phone] 05/26/2023 9:00 AM CDT Ancillary Procedure Department of Ophthalmology in [address] [address] Madison Caicedo M.D. [address] [place] [phone] 05/26/2023 9:15 AM CDT Office Visit Department of Ophthalmology in [address] [address] Madison Caicedo M.D. [address] [place] [phone] 05/26/2023 1:20 PM CDT Appointment Outpatient Procedure Center in [place], [place] [address] [place] [address] Madison Caicedo M.D. [address] [place] [address] documented as of this encounter Visit Diagnoses Not on filedocumented in this encounter Care Teams Fly Worker Relationship Specialty Start Date End Date Elsewhere, Pcp PCP - General Family Medicine 02/17/17 documented as of this encounter
--- OUTSIDE RECORDS SUMMARY | 2023-04-12 06:35 | XMS_ITS | Encounter Summary ---
Author Name Unknown Organization [facility] Address [address] [place] [address] Care Team Providers Care Ciaio Counter Molder Name Role Phone Elsewhere, Pcp Primary Care Provider Unavailabl e Encounter Details Date Type Department Care Team (Late st Contact Info) Description 09/08/2016 Historical Ophthalmology RST OPH Benitez Yuan M.D. [address] [place] [address] Social History Tobacco Use Types Packs/Day Years [...] refractive error CDM Reports - EYEGEN Id: [id number] Status: Fnl documented in this encounter Plan of Treatment Upcoming Encounters Date Type Department Care Team (Latest Contact Info) Description 04/18/2023 1:10 PM TREE SCOUT Ancillary Procedure Department of Ophthalmology in [place], [place] [address] [place] [address] 04/18/2023 1:30 PM TREE SCOUT Appointment Outpatient Procedure Center in [place], [place] [address] [place] [phone] Madison Caicedo M.D. [address] [place] [address] Discharge Disposition: Home or Self Care 05/23/2023 9:45 AM CDT Clinical Communication Virtual Review in [place], [place] 200 [place] [address] 05/26/2023 8:30 AM CDT Ancillary Procedure Department of Ophthalmology in [place], [place] [address] [place] [phone] Madison Caicedo M.D. [address] [place] [phone] 05/26/2023 9:00 AM CDT Ancillary Procedure Department of Ophthalmology in [address] [address] Madison Caicedo M.D. [address] [place] [phone] 05/26/2023 9:15 AM CDT Office Visit Department of Ophthalmology in [address] [address] Madison Caicedo M.D. [address] [place] [phone] 05/26/2023 1:20 PM CDT Appointment Outpatient Procedure Center in [address] [address] Madison Caicedo M.D. [address] [place] [phone] documented as of this encounter Visit Diagnoses Not on filedocumented in this encounter Care Teams Ciaio Counter Molder Relationship Specialty Start Date End Date Elsewhere, Pcp PCP - General Family Medicine 02/17/17 documented as of this encounter
--- OUTSIDE RECORDS SUMMARY | 2023-04-12 06:35 | XMS_ITS | Encounter Summary ---
Author Name Unknown Organization [facility] Address [address] [place] [address] Care Team Providers Care Machine Grinder Name Role Phone Elsewhere, Pcp Primary Care Provider Unavailabl e Encounter Details Date Type Department Care Team (Late st Contact Info) Description 05/10/2017 Historical Ophthalmology RST OPH Benitez Yuan M.D. [address] [place] [address] Social History Tobacco Use Types Packs/Day Years [...] refractive error CDM Reports - EYEGEN Id: [id number] Status: Fnl documented in this encounter Plan of Treatment Upcoming Encounters Date Type Department Care Team (Latest Contact Info) Description 04/18/2023 1:10 PM WOMEN'S MINISTRY DIRECTOR Ancillary Procedure Department of Ophthalmology in [place], [place] [address] [place] [phone] 04/18/2023 1:30 PM WOMEN'S MINISTRY DIRECTOR Appointment Outpatient Procedure Center in [place], [place] [address] [place] [address] Madison Caicedo M.D. [address] [place] [phone] Discharge Disposition: Home or Self Care 05/23/2023 9:45 AM CDT Clinical Communication Virtual Review in [place], [place] 200 [place] [address] 05/26/2023 8:30 AM CDT Ancillary Procedure Department of Ophthalmology in [place], [place] [address] [place] [phone] Madison Caicedo M.D. [address] [place] [phone] 05/26/2023 9:00 AM CDT Ancillary Procedure Department of Ophthalmology in [place], [place] [address] [place] [phone] Madison Caicedo M.D. [address] [place] [phone] 05/26/2023 9:15 AM CDT Office Visit Department of Ophthalmology in [place], [place] [address] [place] [phone] Madison Caicedo M.D. [address] [place] [phone] 05/26/2023 1:20 PM CDT Appointment Outpatient Procedure Center in [place], [place] [address] [place] [phone] Madison Caicedo M.D. [address] [place] [phone] documented as of this encounter Visit Diagnoses Not on filedocumented in this encounter Care Teams Machine Grinder Relationship Specialty Start Date End Date Elsewhere, Pcp PCP - General Family Medicine 02/17/17 documented as of this encounter
--- OUTSIDE RECORDS SUMMARY | 2023-04-12 06:35 | XMS_ITS | Encounter Summary ---
Author Name Unknown Organization [facility] Address [address] [place] [address] Care Team Providers Care Wardrobe Stylist Name Role Phone Elsewhere, Pcp Primary Care Provider Unavailabl e Encounter Details Date Type Department Care Team (Late st Contact Info) Description 06/07/2016 Historical Ophthalmology RST OPH Benitez Yuan M.D. [address] [place] [address] Social History Tobacco Use Types Packs/Day Years [...] refractive error CDM Reports - EYEGEN Id: [id number] Status: Fnl documented in this encounter Plan of Treatment Upcoming Encounters Date Type Department Care Team (Latest Contact Info) Description 04/18/2023 1:10 PM APPLIQUER ZIGZAG Ancillary Procedure Department of Ophthalmology in [place], [place] [address] [place] [phone] 04/18/2023 1:30 PM APPLIQUER ZIGZAG Appointment Outpatient Procedure Center in [place], [place] [address] [place] [phone] Madison Caicedo M.D. [address] [place] [phone] Discharge Disposition: Home or Self Care 05/23/2023 9:45 AM CDT Clinical Communication Virtual Review in [place], [place] 200 [place] [address] 05/26/2023 8:30 AM CDT Ancillary Procedure Department of Ophthalmology in [place], [place] [address] [place] [phone] Madison Caicedo M.D. [address] [place] [phone] 05/26/2023 9:00 AM CDT Ancillary Procedure Department of Ophthalmology in [place], [place] [address] [place] [phone] Madison Caicedo M.D. [address] [place] [phone] 05/26/2023 9:15 AM CDT Office Visit Department of Ophthalmology in [place], [place] [address] [place] [phone] Madison Caicedo M.D. [address] [place] [phone] 05/26/2023 1:20 PM CDT Appointment Outpatient Procedure Center in [place], [place] [address] [place] [phone] Madison Caicedo M.D. [address] [place] [phone] documented as of this encounter Visit Diagnoses Not on filedocumented in this encounter Care Teams Wardrobe Stylist Relationship Specialty Start Date End Date Elsewhere, Pcp PCP - General Family Medicine 02/17/17 documented as of this encounter
--- OUTSIDE RECORDS SUMMARY | 2023-04-12 06:35 | XMS_ITS | Encounter Summary ---
Author Name Unknown Organization [facility] Address [address] [place] [address] Care Team Providers Care Plush Cutter Name Role Phone Elsewhere, Pcp Primary Care Provider Unavailabl e Encounter Details Date Type Department Care Team (Late st Contact Info) Description 11/16/2005 Historical Ophthalmology RST OPH Trino Ron M.D. [address] [place] [address] Social History Tobacco Use Types [...] edema L>R CDM Reports - EYEGEN Id: [id number] Status: Fnl documented in this encounter Plan of Treatment Upcoming Encounters Date Type Department Care Team (Latest Contact Info) Description 04/18/2023 1:10 PM AUTO REFINISHER Ancillary Procedure Department of Ophthalmology in [place], [place] [address] [place] [phone] 04/18/2023 1:30 PM AUTO REFINISHER Appointment Outpatient Procedure Center in [place], [place] [address] [place] [phone] Madison Caicedo M.D. [address] [place] [phone] Discharge Disposition: Home or Self Care 05/23/2023 9:45 AM CDT Clinical Communication Virtual Review in [place], [place] 200 [place] [address] 05/26/2023 8:30 AM CDT Ancillary Procedure Department of Ophthalmology in [place], [place] [address] [place] [phone] Madison Caicedo M.D. [address] [place] [phone] 05/26/2023 9:00 AM CDT Ancillary Procedure Department of Ophthalmology in [address] [address] Madison Caicedo M.D. [address] [place] [phone] 05/26/2023 9:15 AM CDT Office Visit Department of Ophthalmology in [address] [address] Madison Caicedo M.D. [address] [place] [phone] 05/26/2023 1:20 PM CDT Appointment Outpatient Procedure Center in [address] [address] Madison Caicedo M.D. [address] [place] [address] documented as of this encounter Visit Diagnoses Not on filedocumented in this encounter Care Teams Plush Cutter Relationship Specialty Start Date End Date Elsewhere, Pcp PCP - General Family Medicine 02/17/17 documented as of this encounter
--- OUTSIDE RECORDS SUMMARY | 2023-04-12 06:35 | XMS_ITS | Encounter Summary ---
Author Name Unknown Organization [facility] Address [address] [place] [address] Care Team Providers Care Superintendent Meters Name Role Phone Elsewhere, Pcp Primary Care Provider Unavailabl e Encounter Details Date Type Department Care Team (Late st Contact Info) Description 03/10/2016 Historical Ophthalmology RST OPH Benitez Yuan M.D. [address] [place] [address] Social History Tobacco Use Types Packs/Day Years [...] refractive error CDM Reports - EYEGEN Id: [id number] Status: Fnl documented in this encounter Plan of Treatment Upcoming Encounters Date Type Department Care Team (Latest Contact Info) Description 04/18/2023 1:10 PM SEWER AND DRAIN TECHNICIAN Ancillary Procedure Department of Ophthalmology in [address] [address] 04/18/2023 1:30 PM SEWER AND DRAIN TECHNICIAN Appointment Outpatient Procedure Center in [address] [address] Madison Caicedo M.D. [address] [place] [phone] Discharge Disposition: Home or Self Care 05/23/2023 9:45 AM CDT Clinical Communication Virtual Review in [place], [place] 200 [place] [address] 05/26/2023 8:30 AM CDT Ancillary Procedure Department of Ophthalmology in [address] [address] Madison Caicedo M.D. [address] [place] [phone] 05/26/2023 9:00 AM CDT Ancillary Procedure Department of Ophthalmology in [place], [place] [address] [place] [address] Madison Caicedo M.D. [address] [place] [phone] 05/26/2023 9:15 AM CDT Office Visit Department of Ophthalmology in [place], [place] [address] [place] [address] Madison Caicedo M.D. [address] [place] [phone] 05/26/2023 1:20 PM CDT Appointment Outpatient Procedure Center in [place], [place] [address] [place] [phone] Madison Caicedo M.D. [address] [place] [phone] documented as of this encounter Visit Diagnoses Not on filedocumented in this encounter Care Teams Superintendent Meters Relationship Specialty Start Date End Date Elsewhere, Pcp PCP - General Family Medicine 02/17/17 documented as of this encounter
--- OUTSIDE RECORDS SUMMARY | 2023-04-12 06:35 | XMS_ITS | Encounter Summary ---
Author Name Unknown Organization [facility] Address [address] [place] [address] Care Team Providers Care Office Messenger Name Role Phone Elsewhere, Pcp Primary Care Provider Unavailabl e Encounter Details Date Type Department Care Team (Late st Contact Info) Description 05/08/2014 Historical Ophthalmology RST OPH Benitez Yuan M.D. [address] [place] [address] Social History Tobacco Use Types Packs/Day Years [...] refractive error CDM Reports - EYEGEN Id: [id number] Status: Fnl documented in this encounter Plan of Treatment Upcoming Encounters Date Type Department Care Team (Latest Contact Info) Description 04/18/2023 1:10 PM PRINT COLOR OPERATOR Ancillary Procedure Department of Ophthalmology in [address] [phone] 04/18/2023 1:30 PM PRINT COLOR OPERATOR Appointment Outpatient Procedure Center in [address] [phone] Madison Caicedo M.D. [address] [place] [phone] Discharge Disposition: Home or Self Care 05/23/2023 9:45 AM CDT Clinical Communication Virtual Review in [address] [address] 05/26/2023 8:30 AM CDT Ancillary Procedure Department of Ophthalmology in [address] [address] Madison Caicedo M.D. [address] [place] [phone] 05/26/2023 9:00 AM CDT Ancillary Procedure Department of Ophthalmology in [place], [place] [address] [place] [address] Madison Caicedo M.D. [address] [place] [phone] 05/26/2023 9:15 AM CDT Office Visit Department of Ophthalmology in [place], [place] [address] [place] [phone] Madison Caicedo M.D. [address] [place] [phone] 05/26/2023 1:20 PM CDT Appointment Outpatient Procedure Center in [place], [place] [address] [place] [phone] Madison Caicedo M.D. [address] [place] [phone] documented as of this encounter Visit Diagnoses Not on filedocumented in this encounter Care Teams Office Messenger Relationship Specialty Start Date End Date Elsewhere, Pcp PCP - General Family Medicine 02/17/17 documented as of this encounter
--- OUTSIDE RECORDS SUMMARY | 2023-04-12 06:35 | XMS_ITS | Encounter Summary ---
Author Name Unknown Organization [facility] Address [address] [place] [address] Care Team Providers Care Material Engineer Name Role Phone Elsewhere, Pcp Primary Care Provider Unavailabl e Encounter Details Date Type Department Care Team (Latest Contact Info) Description 05/13/2022 2:20 PM CDT Ancillary Procedure Department of Ophthalmology in [place], [place] [address] [place] [address] Wendy Padilla O.D. 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 [address] [place] [phone] Discharge Disposition: Home or Self Care 05/23/2023 9:45 AM CDT Clinical Communication Virtual Review in [place], [place] 200 [place] [address] 05/26/2023 8:30 AM CDT Ancillary Procedure Department of Ophthalmology in [place], [place] [address] [place] [phone] Madison Caicedo M.D. [address] [place] [phone] 05/26/2023 9:00 AM CDT Ancillary Procedure Department of Ophthalmology in [place], [place] [address] [place] [phone] Madison Caicedo M.D. [address] [place] [phone] 05/26/2023 9:15 AM CDT Office Visit Department of Ophthalmology in [address] [address] Madison Caicedo M.D. [address] [place] [phone] 05/26/2023 1:20 PM CDT Appointment Outpatient Procedure Center in [address] [address] Madison Caicedo M.D. [address] [place] [phone] documented as of this encounter Procedures Procedure [...] (HCC) documented in this encounter Care Teams Material Engineer Relationship Specialty Start Date End Date Elsewhere, Pcp PCP - General Family Medicine 02/17/17 documented as of this encounter
--- OUTSIDE RECORDS SUMMARY | 2023-04-12 06:35 | XMS_ITS | Encounter Summary ---
Author Name Unknown Organization [facility] Address [address] [place] [address] Care Team Providers Care Malt House Loader Name Role Phone Elsewhere, Pcp Primary Care Provider Unavailabl e Encounter Details Date Type Department Care Team (Late st Contact Info) Description 07/14/2005 Historical Ophthalmology RST OPH Trino Ron M.D. [address] [place] [address] Social History Tobacco Use Types [...] edema L>R CDM Reports - EYEGEN Id: [id number] Status: Fnl documented in this encounter Plan of Treatment Upcoming Encounters Date Type Department Care Team (Latest Contact Info) Description 04/18/2023 1:10 PM VENEER MATCHER Ancillary Procedure Department of Ophthalmology in [address] [address] 04/18/2023 1:30 PM VENEER MATCHER Appointment Outpatient Procedure Center in [address] [address] Madison Caicedo M.D. [address] [place] [phone] Discharge Disposition: Home or Self Care 05/23/2023 9:45 AM CDT Clinical Communication Virtual Review in [address] [address] 05/26/2023 8:30 AM CDT Ancillary Procedure Department of Ophthalmology in [address] [address] Madison Caicedo M.D. [address] [place] [phone] 05/26/2023 9:00 AM CDT Ancillary Procedure Department of Ophthalmology in [address] [address] Madison Caicedo M.D. [address] [place] [phone] 05/26/2023 9:15 AM CDT Office Visit Department of Ophthalmology in [address] [phone] Madison Caicedo M.D. [address] [place] [phone] 05/26/2023 1:20 PM CDT Appointment Outpatient Procedure Center in [place], [place] [address] [place] [address] Madison Caicedo M.D. [address] [place] [phone] documented as of this encounter Visit Diagnoses Not on filedocumented in this encounter Care Teams Malt House Loader Relationship Specialty Start Date End Date Elsewhere, Pcp PCP - General Family Medicine 02/17/17 documented as of this encounter
--- OUTSIDE RECORDS SUMMARY | 2023-04-12 06:35 | XMS_ITS | Encounter Summary ---
Author Name Unknown Organization [facility] Address [address] [place] [address] Care Team Providers Care Obstetric Anaesthetist Name Role Phone Elsewhere, Pcp Primary Care Provider Unavailabl e Encounter Details Date Type Department Care Team (Late st Contact Info) Description 07/20/2016 Historical Ophthalmology RST OPH Benitez Yuan M.D. [address] [place] [address] Social History Tobacco Use Types Packs/Day Years [...] refractive error CDM Reports - EYEGEN Id: [id number] Status: Fnl documented in this encounter Plan of Treatment Upcoming Encounters Date Type Department Care Team (Latest Contact Info) Description 04/18/2023 1:10 PM SHIFT MGR Ancillary Procedure Department of Ophthalmology in [address] [address] 04/18/2023 1:30 PM SHIFT MGR Appointment Outpatient Procedure Center in [address] [phone] Madison Caicedo M.D. [address] [place] [phone] Discharge Disposition: Home or Self Care 05/23/2023 9:45 AM CDT Clinical Communication Virtual Review in [place], [place] 200 [place] [address] 05/26/2023 8:30 AM CDT Ancillary Procedure Department of Ophthalmology in [address] [phone] Madison Caicedo M.D. [address] [place] [phone] 05/26/2023 9:00 AM CDT Ancillary Procedure Department of Ophthalmology in [place], [place] [address] [place] [phone] Madison Caicedo M.D. [address] [place] [phone] 05/26/2023 9:15 AM CDT Office Visit Department of Ophthalmology in [place], [place] [address] [place] [phone] Madison Caicedo M.D. [address] [place] [phone] 05/26/2023 1:20 PM CDT Appointment Outpatient Procedure Center in [place], [place] [address] [place] [phone] Madison Caicedo M.D. [address] [place] [phone] documented as of this encounter Visit Diagnoses Not on filedocumented in this encounter Care Teams Obstetric Anaesthetist Relationship Specialty Start Date End Date Elsewhere, Pcp PCP - General Family Medicine 02/17/17 documented as of this encounter
--- OUTSIDE RECORDS SUMMARY | 2023-04-12 06:35 | XMS_ITS | Encounter Summary ---
Author Name Unknown Organization [facility] Address [address] [place] [address] Care Team Providers Care Rv Body Mechanic Name Role Phone Elsewhere, Pcp Primary Care Provider Unavailabl e Encounter Details Date Type Department Care Team (Late st Contact Info) Description 05/07/2014 Historical Ophthalmology RST OPH Benitez Yuan M.D. [address] [place] [address] Social History Tobacco Use Types Packs/Day Years [...] OCT macula CDM Reports - EYESV Id: [id number] Status: Fnl documented in this encounter Plan of Treatment Upcoming Encounters Date Type Department Care Team (Latest Contact Info) Description 04/18/2023 1:10 PM EYELET RIVETER Ancillary Procedure Department of Ophthalmology in [place], [place] [address] [place] [phone] 04/18/2023 1:30 PM EYELET RIVETER Appointment Outpatient Procedure Center in [place], [place] [address] [place] [phone] Madison Caicedo M.D. [address] [place] [phone] Discharge Disposition: Home or Self Care 05/23/2023 9:45 AM CDT Clinical Communication Virtual Review in [place], [place] 200 [place] [address] 05/26/2023 8:30 AM CDT Ancillary Procedure Department of Ophthalmology in [place], [place] [address] [place] [phone] Madison Caicedo M.D. [address] [place] [phone] 05/26/2023 9:00 AM CDT Ancillary Procedure Department of Ophthalmology in [place], [place] [address] [place] [phone] aMdison Caicedo M.D. [address] [place] [phone] 05/26/2023 9:15 AM CDT Office Visit Department of Ophthalmology in [address] [address] Madison Caicedo M.D. [address] [place] [phone] 05/26/2023 1:20 PM CDT Appointment Outpatient Procedure Center in [place], [place] [address] [place] [phone] Madison Caicedo M.D. [address] [place] [phone] documented as of this encounter Visit Diagnoses Not on filedocumented in this encounter Care Teams Rv Body Mechanic Relationship Specialty Start Date End Date Elsewhere, Pcp PCP - General Family Medicine 02/17/17 documented as of this encounter
--- OUTSIDE RECORDS SUMMARY | 2023-04-12 06:35 | XMS_ITS | Clinical Summary ---
Author Name Unknown Organization [facility] Address [place], [place] [address] Care Team Providers Care Four Corner Former Machine Operator Name Role Phone Suleiman Barajas MD Primary Care Provider [phone] Medications Medication Sig Dispensed Refills Start Date [...] Influenza for age 65+ 10/29/2022 Care Teams Four Corner Former Machine Operator Relationship Specialty Start Date End Date Suleiman Barajas MD [address] [place] [address] PCP - General Internal Medicine 08/17/17
--- OUTSIDE RECORDS SUMMARY | 2023-04-12 06:35 | XMS_ITS | Encounter Summary ---
Author Name Unknown Organization [facility] Address [address] [place] [address] Care Team Providers Care Clerical Receptionist Name Role Phone Elsewhere, Pcp Primary Care Provider Unavailabl e Encounter Details Date Type Department Care Team (Late st Contact Info) Description 08/06/2014 Historical Ophthalmology RST OPH Benitez Yuan M.D. [address] [place] [address] Social History Tobacco Use Types Packs/Day Years [...] 7.1 on 02/19/14, Blood sugar this am [id number]. Denies blurred vision, light flashes, floaters, ocular [...] refractive error CDM Reports - EYEGEN Id: [id number] Status: Fnl documented in this encounter Plan of Treatment Upcoming Encounters Date Type Department Care Team (Latest Contact Info) Description 04/18/2023 1:10 PM CONVEYANCER Ancillary Procedure Department of Ophthalmology in [address] [address] 04/18/2023 1:30 PM CONVEYANCER Appointment Outpatient Procedure Center in [address] [phone] Madison Caicedo M.D. [address] [place] [phone] Discharge Disposition: Home or Self Care 05/23/2023 9:45 AM CDT Clinical Communication Virtual Review in [address] [address] 05/26/2023 8:30 AM CDT Ancillary Procedure Department of Ophthalmology in [address] [phone] Madison Caicedo M.D. [address] [place] [phone] 05/26/2023 9:00 AM CDT Ancillary Procedure Department of Ophthalmology in [address] [address] Madison Caicedo M.D. [address] [place] [phone] 05/26/2023 9:15 AM CDT Office Visit Department of Ophthalmology in [place], [place] [address] [place] [address] Madison Caicedo M.D. [address] [place] [phone] 05/26/2023 1:20 PM CDT Appointment Outpatient Procedure Center in [place], [place] [address] [place] [phone] Madison Caicedo M.D. [address] [place] [phone] documented as of this encounter Visit Diagnoses Not on filedocumented in this encounter Care Teams Clerical Receptionist Relationship Specialty Start Date End Date Elsewhere, Pcp PCP - General Family Medicine 02/17/17 documented as of this encounter
== END 2023-04-11 10:51 | disposition home or self-care (01) ==
LOC: NFLDREF 10:50
PROVIDERS: PCP Internal Medicine; Referring Provider Internal Medicine; Visit Provider Internal Medicine
DX: E11.9 Type 2 diabetes mellitus without complications (principal); E78.5 Hyperlipidemia, unspecified; Z79.84 Long term (current) use of oral hypoglycemic drugs; Z79.85 Long-term (current) use of injectable non-insulin antidiabetic drugs; Z12.5 Encounter for screening for malignant neoplasm of prostate
CPT/HCPCS: 80053; 80061; G0103

== ENCOUNTER 2023-04-20 07:16 | Day surgery (SDC) | payer MEDICARE, SELFPAY ==
--- OUTSIDE RECORDS SUMMARY | 2023-04-20 07:19 | XMS_ITS ---
Author Name Unknown Organization [facility] Address [address] [place] [address] Care Team Providers Care Merchandise Team Manager Name Role Phone Unavailable Unavailable Unavailable Surgery Details Not on file Complications Check Surgery Details section. Procedure Estimated Blood Loss Check Surgery Details section. Procedure Findings Check Surgery Details section. Procedure Specimens Taken Check Surgery Details section.
--- OUTSIDE RECORDS SUMMARY | 2023-04-20 07:19 | XMS_ITS | Encounter Summary ---
Author Name Unknown Organization [facility] Address [address] [place] [address] Care Team Providers Care Rn Dermatology Name Role Phone Elsewhere, Pcp Primary Care Provider Unavailabl e Encounter Details Date Type Department Care Team (Latest Contact Info) Description 04/12/2023 Orders Only Department of Ophthalmology in [place], [place] [address] [place] [phone] Eliane Laura [address] [place] [phone] Diabetes Mellitus Due To Underlying Condition With [...] Department Care Team (Latest Contact Info) Description 05/23/2023 9:45 AM CDT Clinical Communication Virtual Review in [place], [place] [address] [place] [address] 05/26/2023 8:30 AM CDT Ancillary Procedure Department of Ophthalmology in [place], [place] [address] [place] [address] Madison Caicedo M.D. [address] [place] [phone] 05/26/2023 9:00 AM CDT Ancillary Procedure Department of Ophthalmology in [place], [place] [address] [place] [address] Madison Caicedo M.D. [address] [place] [phone] 05/26/2023 9:15 AM CDT Office Visit Department of Ophthalmology in [place], [place] [address] [place] [address] Madison Caicedo M.D. [address] [place] [phone] 05/26/2023 1:20 PM CDT Appointment Outpatient Procedure Center in [place], [place] [address] [place] [phone] Madison Caicedo M.D. 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
--- OUTSIDE RECORDS SUMMARY | 2023-04-20 07:19 | XMS_ITS | Encounter Summary ---
Author Name Unknown Organization [facility] Address [address] [place] [address] Care Team Providers Care Small Engine Specialist Name Role Phone Elsewhere, Pcp Primary Care Provider Unavailabl e Reason for Visit * Reason Comments Injection Visit Encounter Details Date Type Department Care Team (Late st Contact Info) Description 04/18/2023 1:10 PM UPHOLSTERY DEPARTMENT SUPERVISOR Ancillary Procedure Department of Ophthalmology in [place], [place] [address] [place] [phone] Social History Tobacco Use Types Packs/Day Years [...] AM CDT Clinical Communication Virtual Review in [place], [place] [address] [place] [address] 05/26/2023 8:30 AM CDT Ancillary Procedure Department of Ophthalmology in [place], [place] [address] [place] [phone] Madison Caicedo M.D. [address] [place] [phone] 05/26/2023 9:00 AM CDT Ancillary Procedure Department of Ophthalmology in [place], [place] [address] [place] [phone] Madison Caicedo M.D. [address] [place] [phone] 05/26/2023 9:15 AM CDT Office Visit Department of Ophthalmology in [place], [place] [address] [place] [phone] Madison Caicedo M.D. [address] [place] [phone] 05/26/2023 1:20 PM CDT Appointment Outpatient Procedure Center in [place], [place] [address] [place] [phone] Madison Caicedo M.D. [address] [place] [phone] documented as of this encounter Visit Diagnoses Not on filedocumented in this encounter Care Teams Small Engine Specialist Relationship Specialty Start Date End Date Elsewhere, Pcp PCP - General Family Medicine 02/17/17 documented as of this encounter
--- OUTSIDE RECORDS SUMMARY | 2023-04-20 07:19 | XMS_ITS | Clinical Summary ---
Author Name Unknown Organization [facility] Address [address] [place] [address] Care Team Providers Care Vice President Corporate Communications Name Role Phone Elsewhere, Pcp Primary Care Provider Unavailabl e Source Comments Patient records contain information from all sites at [facility]. For routine questions regarding patient records, call [phone] during business hours, M-F 8:00 AM - 5:00 PM Central Time. Record requests for emergency care only can be directed to [phone] at any time.[facility] Allergies No known active allergies Medications [...] strips every other day. 0 03/31/2016 A [facility], [facility], or Other Facility Administered Medication [...] Eye (HCC) 1.25 mg vtre As needed 04/18/2023 04/18/2023 Ended Active Problems Problem Noted Date Diagnosed [...] Encounters Date Type Department Care Team Description 04/18/2023 1:10 PM LEGISLATIVE CORRESPONDENT Ancillary Procedure Department of Ophthalmology in [place], [place] [address] [place] [address] 04/18/2023 12:57 PM LEGISLATIVE CORRESPONDENT - 04/18/2023 11:59 PM LEGISLATIVE CORRESPONDENT Hospital Encounter Outpatient Procedure Center in [place], [place] [address] [place] [address] Samantha Chatman M.D. Arrived Discharge Disposition: Home or Self Care 04/18/2023 12:44 PM LEGISLATIVE CORRESPONDENT - 04/18/2023 12:56 PM LEGISLATIVE CORRESPONDENT Hospital Encounter Outpatient Procedure Center in [place], [place] [address] [place] [address] Madison Caicedo M.D. 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 Discharge Disposition: Home or Self Care 03/15/2023 1:44 PM LEGISLATIVE CORRESPONDENT - 03/15/2023 1:45 PM LEGISLATIVE CORRESPONDENT Hospital Encounter Outpatient Procedure Center in [address] [address] Madison Caicedo M.D. 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 Discharge Disposition: Home or Self Care 02/15/2023 2:00 PM LEGISLATIVE CORRESPONDENT Ancillary Procedure Department of Ophthalmology in [address] [address] Madison Caicedo M.D. 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 Discharge Disposition: Home or Self Care 01/18/2023 2:00 PM LEGISLATIVE CORRESPONDENT Ancillary Procedure Department of Ophthalmology in [place], [place] [address] [place] [phone] Madison Caicedo M.D. 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 Diabetes Mellitus Type 2 [...] AM CDT Clinical Communication Virtual Review in [place], [place] 200 [place] [address] 05/26/2023 8:30 AM CDT Ancillary Procedure Department of Ophthalmology in [address] [address] Madison Caicedo M.D. [address] [place] [phone] 05/26/2023 9:00 AM CDT Ancillary Procedure Department of Ophthalmology in [address] [address] Madison Caicedo M.D. [address] [place] [phone] 05/26/2023 9:15 AM CDT Office Visit Department of Ophthalmology in [address] [address] Madison Caicedo M.D. [address] [place] [phone] 05/26/2023 1:20 PM CDT Appointment Outpatient Procedure Center in [address] [address] Madison Caicedo M.D. 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) INTRAVITREAL INJECTION, PHARMACOLOGIC AGENT - OD - RIGHT EYE - RST GONDA SCHEDULING ORDER Routine 04/18/2023 12:44 PM LEGISLATIVE CORRESPONDENT 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) INTRAVITREAL INJECTION, PHARMACOLOGIC AGENT - OD - RIGHT EYE Routine 03/15/2023 1:46 PM LEGISLATIVE CORRESPONDENT 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) INTRAVITREAL INJECTION, PHARMACOLOGIC AGENT - OD - RIGHT EYE - RST GONDA SCHEDULING ORDER Routine 03/15/2023 1:44 PM LEGISLATIVE CORRESPONDENT 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) INTRAVITREAL INJECTION, PHARMACOLOGIC AGENT - OD - RIGHT EYE Routine 02/15/2023 2:29 PM LEGISLATIVE CORRESPONDENT 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) INTRAVITREAL INJECTION, PHARMACOLOGIC AGENT - OD - RIGHT EYE - RST GONDA SCHEDULING ORDER Routine 02/15/2023 1:42 PM LEGISLATIVE CORRESPONDENT 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) INTRAVITREAL INJECTION, PHARMACOLOGIC AGENT - OD - RIGHT EYE Routine 01/18/2023 2:54 PM LEGISLATIVE CORRESPONDENT 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 - 04/18/2023 3:58 PM LEGISLATIVE CORRESPONDENT Pre-Procedure Verification Pre-procedure verification conducted to verify correct patient identity, procedure to be performed and, as applicable, correct side and site. Patient ID band validated and present. Patient consent obtained. Time Out Confirmed correct patient, procedure, site, and patient consented. Anesthesia Topical anesthesia was used. Pre/Post Procedure prep and meds used were Celluvisc 1-10 drops, Povidone 5% 1-10 drops, Povidone 10% swabs x 3 to lids and lashes, Proparacaine 0.5% 1-10 drops, Tetracaine 0.5% 1-10 drops. Procedure Details Injection: 1.25 mg bevacizumab 25 mg/mL ??Route: intravitreal, Site: Right Eye ??[facility]: 54474-217-11 Balanced salt solution irrigation to injected eye [...] given if requested. Avastin RE Lot # [id number] Exp. 06/20/2023 Samantha Chatman M.D. [facility] PROCEDU RES * Intravitreal Injection, Pharmacologic Agent - OD - Right Eye (03/15/2023 1:46 PM LEGISLATIVE CORRESPONDENT) Narrative Filemon Mendez M.D. - 03/15/2023 2:09 PM LEGISLATIVE CORRESPONDENT Pre-Procedure Verification Pre-procedure verification conducted to verify [...] 25 mg/mL ??Route: intravitreal, Site: Right Eye ??[facility]: 12514-975-23 Balanced salt solution irrigation to injected eye [...] given if requested. Avastin RE Lot # [id number] Exp. 04/08/23 Filemon Mendez M.D. [facility] PROCED URES * Intravitreal Injection, Pharmacologic Agent - OD - Right Eye (02/15/2023 2:29 PM LEGISLATIVE CORRESPONDENT) Narrative Bebe Duran M.D. - 02/15/2023 3:11 PM LEGISLATIVE CORRESPONDENT Pre-Procedure Verification Pre-procedure verification conducted to verify [...] 25 mg/mL ??Route: intravitreal, Site: Right Eye ??[facility]: 17803-087-92 Balanced salt solution irrigation to injected eye [...] given if requested. Avastin RE Lot # [id number] Exp. 03/23/23 Bebe Streeter M.D. [facility] PRO CEDURES * Intravitreal Injection, Pharmacologic Agent - OD - Right Eye (01/18/2023 2:54 PM LEGISLATIVE CORRESPONDENT) Narrative Rj Bowen M.D. - 01/18/2023 5:29 PM LEGISLATIVE CORRESPONDENT Pre-Procedure Verification Pre-procedure verification conducted to verify [...] 25 mg/mL ??Route: intravitreal, Site: Right Eye ??[facility]: 20455-641-22 Balanced salt solution irrigation to injected eye [...] given if requested. Avastin RE Lot # [id number] Exp. 02/04/23 Rj Bowen M.D. [facility] PROCEDU RES from Last 3 Months Care Teams Vice President Corporate Communications Relationship Specialty Start Date End Date Elsewhere, Pcp PCP - General Family Medicine 02/17/17
--- OUTSIDE RECORDS SUMMARY | 2023-04-20 07:19 | XMS_ITS | Referral Summary ---
Author Name Unknown Organization [facility] Address [address] [place] [address] Care Team Providers Care Fermentation Engineer Name Role Phone Elsewhere, Pcp Primary Care Provider Unavailabl e Source Comments Patient records contain information from all sites at [facility]. For routine questions regarding patient records, call [phone] during business hours, M-F 8:00 AM - 5:00 PM Central Time. Record requests for emergency care only can be directed to [phone] at any time.[facility] Encounters Date Type Department Care Team Description 04/18/2023 12:57 PM AUTHORIZATION REPRESENTATIVE - 04/18/2023 11:59 PM AUTHORIZATION REPRESENTATIVE Hospital Encounter Outpatient Procedure Center in [place], [place] [address] [place] [address] Samantha Chatman M.D. Arrived Discharge Disposition: Home or Self Care 04/18/2023 12:44 PM AUTHORIZATION REPRESENTATIVE - 04/18/2023 12:56 PM AUTHORIZATION REPRESENTATIVE Hospital Encounter Outpatient Procedure Center in [place], [place] [address] [place] [address] Madison Caicedo M.D. 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 Discharge Disposition: Home or Self Care 03/15/2023 Clinical Communication Department of Ophthalmology in [place], [place] [address] [place] [address] Madison Caicedo M.D. 03/15/2023 1:44 PM AUTHORIZATION REPRESENTATIVE - 03/15/2023 1:45 PM AUTHORIZATION REPRESENTATIVE Hospital Encounter Outpatient Procedure Center in [place], [place] [address] [place] [address] Madison Caicedo M.D. 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 Discharge Disposition: Home or Self Care 02/15/2023 1:42 PM AUTHORIZATION REPRESENTATIVE - 02/15/2023 2:28 PM AUTHORIZATION REPRESENTATIVE Hospital Encounter Outpatient Procedure Center in [place], [place] [address] [place] [phone] Madison Caicedo M.D. 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 Discharge Disposition: Home or Self Care 01/18/2023 2:00 PM AUTHORIZATION REPRESENTATIVE Ancillary Procedure Department of Ophthalmology in [address] [phone] Madison Caicedo M.D. 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 Diabetes Mellitus Type 2 [...] strips every other day. 0 03/31/2016 A [facility], Clinic, or Other Facility Administered [...] AM CDT Clinical Communication Virtual Review in [place], [place] [address] [place] [address] 05/26/2023 8:30 AM CDT Ancillary Procedure Department of Ophthalmology in [place], [place] [address] [place] [phone] Madison Caicedo M.D. [address] [place] [phone] 05/26/2023 9:00 AM CDT Ancillary Procedure Department of Ophthalmology in [address] [address] Madison Caicedo M.D. [address] [place] [phone] 05/26/2023 9:15 AM CDT Office Visit Department of Ophthalmology in [address] [address] Madison Caicedo M.D. [address] [place] [phone] 05/26/2023 1:20 PM CDT Appointment Outpatient Procedure Center in [address] [address] Madison Caicedo M.D. 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) INTRAVITREAL INJECTION, PHARMACOLOGIC AGENT - OD - RIGHT EYE Routine 03/15/2023 1:46 PM AUTHORIZATION REPRESENTATIVE 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) INTRAVITREAL INJECTION, PHARMACOLOGIC AGENT - OD - RIGHT EYE - RST GONDA SCHEDULING ORDER Routine 03/15/2023 1:44 PM AUTHORIZATION REPRESENTATIVE 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) INTRAVITREAL INJECTION, PHARMACOLOGIC AGENT - OD - RIGHT EYE Routine 02/15/2023 2:29 PM AUTHORIZATION REPRESENTATIVE 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) INTRAVITREAL INJECTION, PHARMACOLOGIC AGENT - OD - RIGHT EYE - RST GONDA SCHEDULING ORDER Routine 02/15/2023 1:42 PM AUTHORIZATION REPRESENTATIVE 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) INTRAVITREAL INJECTION, PHARMACOLOGIC AGENT - OD - RIGHT EYE Routine 01/18/2023 2:54 PM AUTHORIZATION REPRESENTATIVE 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 - 04/18/2023 3:58 PM AUTHORIZATION REPRESENTATIVE Pre-Procedure Verification Pre-procedure verification conducted to verify [...] mg/mL ??Route: intravitreal, Site: Right Eye ??[facility]: 12139-279-37 Balanced salt solution irrigation to injected eye [...] given if requested. Avastin RE Lot # [id number] Exp. 06/20/2023 Samantha Chatman M.D. [facility] PROCEDU RES * Intravitreal Injection, Pharmacologic Agent - OD - Right Eye (03/15/2023 1:46 PM AUTHORIZATION REPRESENTATIVE) Narrative Filemon Mendez M.D. - 03/15/2023 2:09 PM AUTHORIZATION REPRESENTATIVE Pre-Procedure Verification Pre-procedure verification conducted to verify [...] mg/mL ??Route: intravitreal, Site: Right Eye ??[facility]: 59814-409-01 Balanced salt solution irrigation to injected eye [...] given if requested. Avastin RE Lot # [id number] Exp. 04/08/23 Filemon Mendez M.D. [facility] PROCED URES * Intravitreal Injection, Pharmacologic Agent - OD - Right Eye (02/15/2023 2:29 PM AUTHORIZATION REPRESENTATIVE) Narrative Bebe Duran M.D. - 02/15/2023 3:11 PM AUTHORIZATION REPRESENTATIVE Pre-Procedure Verification Pre-procedure verification conducted to verify [...] mg/mL ??Route: intravitreal, Site: Right Eye ??[facility]: 82897-300-34 Balanced salt solution irrigation to injected eye [...] given if requested. Avastin RE Lot # [id number] Exp. 03/23/23 Bebe Streeter M.D. [facility] PRO CEDURES * Intravitreal Injection, Pharmacologic Agent - OD - Right Eye (01/18/2023 2:54 PM AUTHORIZATION REPRESENTATIVE) Narrative Rj Bowen M.D. - 01/18/2023 5:29 PM AUTHORIZATION REPRESENTATIVE Pre-Procedure Verification Pre-procedure verification conducted to verify [...] mg/mL ??Route: intravitreal, Site: Right Eye ??[facility]: 55282-514-76 Balanced salt solution irrigation to injected eye [...] given if requested. Avastin RE Lot # [id number] Exp. 02/04/23 Rj Bowen M.D. [facility] PROCEDU RES from Last 3 Months Care Teams Fermentation Engineer Relationship Specialty Start Date End Date Elsewhere, Pcp PCP - General Family Medicine 02/17/17
--- OUTSIDE RECORDS SUMMARY | 2023-04-20 07:19 | XMS_ITS | Encounter Summary ---
Author Name Unknown Organization [facility] Address [address] [place] [address] Care Team Providers Care Greige Goods Marker Name Role Phone Elsewhere, Pcp Primary Care Provider Unavailabl e Encounter Details Date Type Department Care Team (Latest Contact Info) Description 03/15/2023 Clinical Communication Department of Ophthalmology in [place], [place] [address] [place] [address] Madison Caicedo M.D. [address] [place] [phone] Social History Tobacco Use Types Packs/Day Years [...] Maldonado - 03/15/2023 1:02 PM CST Pt [phone], Mr. Arthur, is scheduled to see Dr. Caicedo on 04/20, but is having cataract surgery (elsewhere) that same day. Please advise when to reschedule pt (first available, or is a certain amount time needed between cataract surgery and follow up/inj?) Dr. Caicedo doesn't have anything available prior to 04/20. Thank you! *Inj schedulers, please call pt when able to reschedule. WELDER documented in this encounter Plan of Treatment Upcoming Encounters Date Type Department Care Team (Latest Contact Info) Description 05/23/2023 9:45 AM CDT Clinical Communication Virtual Review in [address] [address] 05/26/2023 8:30 AM CDT Ancillary Procedure Department of Ophthalmology in [address] [address] Madison Caicedo M.D. [address] [place] [phone] 05/26/2023 9:00 AM CDT Ancillary Procedure Department of Ophthalmology in [address] [address] Madison Caicedo M.D. [address] [place] [phone] 05/26/2023 9:15 AM CDT Office Visit Department of Ophthalmology in [address] [address] Madison Caicedo M.D. [address] [place] [phone] 05/26/2023 1:20 PM CDT Appointment Outpatient Procedure Center in [address] [address] Madison Caicedo M.D. [address] [place] [phone] documented as of this encounter Visit Diagnoses Not on filedocumented in this encounter Care Teams Greige Goods Marker Relationship Specialty Start Date End Date Elsewhere, Pcp PCP - General Family Medicine 02/17/17 documented as of this encounter
--- OUTSIDE RECORDS SUMMARY | 2023-04-20 07:19 | XMS_ITS | Encounter Summary ---
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 [address] [place] [address] [facility] Referral ID Status Reason Start Date Expiration Date Visits Re quested Visits Authorized [id number] Closed 10/13/2022 10/13/2023 5 5 Encounter Details Date Type Department Care Team (Latest Contact Info) Description 03/15/2023 1:40 PM JAVA TECHNICAL ARCHITECT Ancillary Procedure Department of Ophthalmology in [place], [place] [address] [place] [phone] Madison Caicedo M.D. [address] [place] [address] Diabetes Mellitus Type 2 With [...] AM CDT Clinical Communication Virtual Review in [place], [place] 200 [place] [address] 05/26/2023 8:30 AM CDT Ancillary Procedure Department of Ophthalmology in [address] [address] Madison Caicedo M.D. [address] [place] [phone] 05/26/2023 9:00 AM CDT Ancillary Procedure Department of Ophthalmology in [address] [address] Madison Caicedo M.D. [address] [place] [phone] 05/26/2023 9:15 AM CDT Office Visit Department of Ophthalmology in [address] [address] Madison Caicedo M.D. [address] [place] [phone] 05/26/2023 1:20 PM CDT Appointment Outpatient Procedure Center in [address] [address] Madison Caicedo M.D. 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
--- OUTSIDE RECORDS SUMMARY | 2023-04-20 07:19 | XMS_ITS | Encounter Summary ---
Author Name Unknown Organization [facility] Address [address] [place] [address] Care Team Providers Care Plow And Boring Machine Tender Name Role Phone Elsewhere, Pcp Primary Care Provider Unavailabl e Encounter Details Date Type Department Care Team (Latest Contact Info) Description 03/15/2023 1:46 PM DISC RULER OPERATOR - 03/15/2023 11:59 PM DISC RULER OPERATOR Hospital Encounter Outpatient Procedure Center in [place], [place] [address] [place] [address] Filemon Mendez M.D. [address] [place] [address] Discharge Disposition: Home or Self Care Social [...] CDT Clinical Communication Virtual Review in [place], [place] 200 [place] [address] 05/26/2023 8:30 AM CDT Ancillary Procedure Department of Ophthalmology in [address] [address] Madison Caicedo M.D. [address] [place] [phone] 05/26/2023 9:00 AM CDT Ancillary Procedure Department of Ophthalmology in [address] [address] Madison Caicedo M.D. [address] [place] [phone] 05/26/2023 9:15 AM CDT Office Visit Department of Ophthalmology in [address] [address] Madison Caicedo M.D. [address] [place] [phone] 05/26/2023 1:20 PM CDT Appointment Outpatient Procedure Center in [address] [address] Madison Caicedo M.D. 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 - 03/15/2023 2:09 PM DISC RULER OPERATOR Pre-Procedure Verification Pre-procedure verification conducted to [...] intravitreal, Site: Right Eye ??[facility]: 48324-385-04 Balanced salt solution irrigation to injected eye [...] given if requested. Avastin RE Lot # [id number] Exp. 04/08/23 Filemon Mendez M.D. OPHTH CLINIC PROCED URES documented in this encounter Visit Diagnoses Not on filedocumented in this encounter Care Teams Plow And Boring Machine Tender Relationship Specialty Start Date End Date Elsewhere, Pcp PCP - General Family Medicine 02/17/17 documented as of this encounter
--- OUTSIDE RECORDS SUMMARY | 2023-04-20 07:19 | XMS_ITS | Encounter Summary ---
Author Name Unknown Organization 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 [address] [place] [address] [facility] Referral ID Status Reason Start Date Expiration Date V isits Requested Visits Authorized [id number] Pending Review 03/16/2023 03/15/2024 1 1 LPING SUPERVISOR Encounter Details Date Type Department Care Team (Latest Contact Info) Description 03/16/2023 Orders Only Department of Ophthalmology in [place], [place] [address] [place] [address] Sydnie Rivero, CKeeOKeeAKee [address] [place] [address] Diabetes Mellitus Type 2 With [...] Communication Virtual Review in [place], [place] 200 [place] [address] 05/26/2023 8:30 AM CDT Ancillary Procedure Department of Ophthalmology in [address] [phone] Madison Caicedo M.D. [address] [place] [phone] 05/26/2023 9:00 AM CDT Ancillary Procedure Department of Ophthalmology in [address] [address] Madison Caicedo M.D. [address] [place] [phone] 05/26/2023 9:15 AM CDT Office Visit Department of Ophthalmology in [address] [address] Madison Caicedo M.D. [address] [place] [phone] 05/26/2023 1:20 PM CDT Appointment Outpatient Procedure Center in [address] [phone] Madison Caicedo M.D. [address] [place] [phone] Scheduled Orders Name Type Priority Associated Diagnoses [...] Primary documented in this encounter Care Teams Crocodile Farmer Relationship Specialty Start Date End Date Elsewhere, Pcp PCP - General Family Medicine 02/17/17 documented as of this encounter
--- OUTSIDE RECORDS SUMMARY | 2023-04-20 07:19 | XMS_ITS | Encounter Summary ---
Author Name Unknown Organization [facility] Address [address] [place] [address] Care Team Providers Care Half Sole Fitter Name Role Phone Elsewhere, Pcp Primary Care Provider Unavailabl e Encounter Details Date Type Department Care Team (Latest Contact Info) Description 04/18/2023 12:57 PM LABORATORY COURIER - 04/18/2023 11:59 PM LABORATORY COURIER Hospital Encounter Outpatient Procedure Center in [place], [place] [address] [place] [address] Samantha Chatman M.D. [address] [place] [address] Arrived Discharge Disposition: Home or Self Care Social [...] AM CDT Clinical Communication Virtual Review in [place], [place] 200 [place] [address] 05/26/2023 8:30 AM CDT Ancillary Procedure Department of Ophthalmology in [address] [address] Madison Caicedo M.D. [address] [place] [phone] 05/26/2023 9:00 AM CDT Ancillary Procedure Department of Ophthalmology in [address] [address] Madison Caicedo M.D. [address] [place] [phone] 05/26/2023 9:15 AM CDT Office Visit Department of Ophthalmology in [address] [address] Madison Caicedo M.D. [address] [place] [phone] 05/26/2023 1:20 PM CDT Appointment Outpatient Procedure Center in [address] [address] Madison Caicedo M.D. 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 - 04/18/2023 3:58 PM LABORATORY COURIER Pre-Procedure Verification Pre-procedure verification conducted to verify [...] 25 mg/mL ??Route: intravitreal, Site: Right Eye ??[facility]: 460[address]-559-28 Balanced salt solution irrigation to injected eye [...] given if requested. Avastin RE Lot # [id number] Exp. 06/20/2023 Samantha Chatman M.D. OPHTH CLINIC PROCEDU RES documented in this encounter Visit Diagnoses Not on filedocumented in this encounter Care Teams Half Sole Fitter Relationship Specialty Start Date End Date Elsewhere, Pcp PCP - General Family Medicine 02/17/17 documented as of this encounter
--- OUTSIDE RECORDS SUMMARY | 2023-04-20 07:19 | XMS_ITS | Encounter Summary ---
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 [address] [place] [address] [facility] Referral ID Status Reason Start Date Expiration Date Visits Re quested Visits Authorized [id number] Closed 10/13/2022 10/13/2023 6 6 Encounter Details Date Type Department Care Team (Latest Contact Info) Description 04/18/2023 12:44 PM NECKTIE OPERATOR POCKETS AND PIECES - 04/18/2023 12:56 PM NECKTIE OPERATOR POCKETS AND PIECES Hospital Encounter Outpatient Procedure Center in [place], [place] [address] [place] [address] Madison Caicedo M.D. [address] [place] [phone] Diabetes Mellitus Type 2 With Moderate Nonproliferative [...] AM CDT Clinical Communication Virtual Review in [place], [place] 200 [place] [address] 05/26/2023 8:30 AM CDT Ancillary Procedure Department of Ophthalmology in [place], [place] [address] [place] [phone] Madison Caicedo M.D. [address] [place] [phone] 05/26/2023 9:00 AM CDT Ancillary Procedure Department of Ophthalmology in [address] [address] Madison Caicedo M.D. [address] [place] [phone] 05/26/2023 9:15 AM CDT Office Visit Department of Ophthalmology in [address] [address] Madison Caicedo M.D. [address] [place] [phone] 05/26/2023 1:20 PM CDT Appointment Outpatient Procedure Center in [address] [address] Madison Caicedo M.D. 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 - 04/18/2023 3:58 PM NECKTIE OPERATOR POCKETS AND PIECES Pre-Procedure Verification Pre-procedure verification conducted to verify [...] intravitreal, Site: Right Eye ??[facility]: 655[address]-596-49 Balanced salt solution irrigation to injected eye [...] given if requested. Avastin RE Lot # [id number] Exp. 06/20/2023 Samantha Chatman M.D. OPHTH CLINIC [...] 06/10/22 at 0918, For 365 days Given 04/18/2023 12:58 PM NECKTIE OPERATOR POCKETS AND PIECES 30 mL Given 03/15/2023 1:47 PM NECKTIE OPERATOR POCKETS AND PIECES 30 mL Given 02/15/2023 2:30 PM NECKTIE OPERATOR POCKETS AND PIECES 30 mL carboxymethylcellulose 1 % ophthalmic solution 1 drop (THERATEARS) 1 drop, right eye, As needed, dry eyes, DIRECTED OPHTHALMIC IN OR, Starting on Itzel 06/10/22 at 0918, For 365 days Given 04/18/2023 12:58 PM NECKTIE OPERATOR POCKETS AND PIECES 1 drop Given 03/15/2023 1:48 PM NECKTIE OPERATOR POCKETS AND PIECES 1 drop Given 02/15/2023 2:30 PM NECKTIE OPERATOR POCKETS AND PIECES 1 drop povidone-iodine 5 % ophthalmic solution 1 drop (BETADINE) 1 drop, right eye, As needed, irrigation, DIRECTED OPHTHALMIC IN OR, Starting on Itzel 06/10/22 at 0918, For 365 days, Irrigate ocular and periocular region and leave for 2 mins; then flush with sterile saline solution. Given 04/18/2023 12:58 PM NECKTIE OPERATOR POCKETS AND PIECES 1 drop Given 03/15/2023 1:48 PM NECKTIE OPERATOR POCKETS AND PIECES 1 drop Given 02/15/2023 2:30 PM NECKTIE OPERATOR POCKETS AND PIECES 1 drop proparacaine 0.5 % ophthalmic solution 1 drop (ALCAINE) 1 drop, right eye, As needed, DIRECTED OPHTHALMIC IN OR, Starting on Itzel 06/10/22 at 0918, For 365 days Given 04/18/2023 12:58 PM NECKTIE OPERATOR POCKETS AND PIECES 1 drop Given 03/15/2023 1:48 PM NECKTIE OPERATOR POCKETS AND PIECES 1 drop Given 02/15/2023 2:30 PM NECKTIE OPERATOR POCKETS AND PIECES 1 drop tetracaine (PF) 0.5 % ophthalmic solution 1 drop (ALTACAINE) 1 drop, right eye, As needed, DIRECTED OPHTHALMIC IN OR, Starting on Itzel 06/10/22 at 0918, For 365 days Given 04/18/2023 12:58 PM NECKTIE OPERATOR POCKETS AND PIECES 1 drop Given 03/15/2023 1:47 PM NECKTIE OPERATOR POCKETS AND PIECES 1 drop Given 02/15/2023 2:30 PM NECKTIE OPERATOR POCKETS AND PIECES 1 drop Inactive Administered Medications - up to 3 most recent administrations Medication Order MAR Action Action Date Dose Rate Site bevacizumab intraocular injection 1.25 mg (AVASTIN) 1.25 mg, intravitreal, As needed, DIRECTED OPHTHALMIC IN OR, Starting on 04/18/23 at 1558, Inject into right eye. Given 04/18/2023 3:58 PM NECKTIE OPERATOR POCKETS AND PIECES 1.25 mg Right Eye documented in this encounter Care Teams Fertilizer Mixer Relationship Specialty Start Date End Date Elsewhere, Pcp PCP - General Family Medicine 02/17/17 documented as of this encounter
--- OUTSIDE RECORDS SUMMARY | 2023-04-20 07:19 | XMS_ITS | Encounter Summary ---
Author Name Unknown Organization 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 [address] [place] [address] 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 [address] [place] [address] [facility] Referral ID Status Reason Start Date Expiration Date Visits Re quested Visits Authorized [id number] Closed 10/13/2022 10/13/2023 6 6 Encounter Details Date Type Department Care Team (Latest Contact Info) Description 03/15/2023 1:44 PM SPARE PERSON - 03/15/2023 1:45 PM SPARE PERSON Hospital Encounter Outpatient Procedure Center in [place], [place] [address] [place] [address] Madison Caicedo M.D. [address] [place] [phone] Diabetes Mellitus Type 2 With Moderate Nonproliferative [...] AM CDT Clinical Communication Virtual Review in [place], [place] [address] [place] [address] 05/26/2023 8:30 AM CDT Ancillary Procedure Department of Ophthalmology in [place], [place] [address] [place] [phone] Madison Caicedo M.D. [address] [place] [phone] 05/26/2023 9:00 AM CDT Ancillary Procedure Department of Ophthalmology in [address] [address] Madison Caicedo M.D. [address] [place] [phone] 05/26/2023 9:15 AM CDT Office Visit Department of Ophthalmology in [address] [address] Madison Caicedo M.D. [address] [place] [phone] 05/26/2023 1:20 PM CDT Appointment Outpatient Procedure Center in [address] [address] Madison Caicedo M.D. 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 - 03/15/2023 2:09 PM SPARE PERSON Pre-Procedure Verification Pre-procedure verification conducted to verify [...] 25 mg/mL ??Route: intravitreal, Site: Right Eye ??[facility]: [address]-826-01 Balanced salt solution irrigation to injected eye [...] given if requested. Avastin RE Lot # [id number] Exp. 04/08/23 Filemon Mendez M.D. OPHTH CLINIC [...] For 365 days Given 04/18/2023 12:58 PM SPARE PERSON 30 mL Given 03/15/2023 1:47 PM SPARE PERSON 30 mL Given 02/15/2023 2:30 PM SPARE PERSON 30 mL carboxymethylcellulose 1 % ophthalmic solution 1 drop (THERATEARS) 1 drop, right eye, As needed, dry eyes, DIRECTED OPHTHALMIC IN OR, Starting on Itzel 06/10/22 at 0918, For 365 days Given 04/18/2023 12:58 PM SPARE PERSON 1 drop Given 03/15/2023 1:48 PM SPARE PERSON 1 drop Given 02/15/2023 2:30 PM SPARE PERSON 1 drop povidone-iodine 5 % ophthalmic solution 1 drop (BETADINE) 1 drop, right eye, As needed, irrigation, DIRECTED OPHTHALMIC IN OR, Starting on Tue06/10/22 at 0918, For 365 days, Irrigate ocular and periocular region and leave for 2 mins; then flush with sterile saline solution. Given 04/18/2023 12:58 PM SPARE PERSON 1 drop Given 03/15/2023 1:48 PM SPARE PERSON 1 drop Given 02/15/2023 2:30 PM SPARE PERSON 1 drop proparacaine 0.5 % ophthalmic solution 1 drop (ALCAINE) 1 drop, right eye, As needed, DIRECTED OPHTHALMIC IN OR, Starting on Itzel 06/10/22 at 0918, For 365 days Given 04/18/2023 12:58 PM SPARE PERSON 1 drop Given 03/15/2023 1:48 PM SPARE PERSON 1 drop Given 02/15/2023 2:30 PM SPARE PERSON 1 drop tetracaine (PF) 0.5 % ophthalmic solution 1 drop (ALTACAINE) 1 drop, right eye, As needed, DIRECTED OPHTHALMIC IN OR, Starting on Tue06/10/22 at 0918, For 365 days Given 04/18/2023 12:58 PM SPARE PERSON 1 drop Given 03/15/2023 1:47 PM SPARE PERSON 1 drop Given 02/15/2023 2:30 PM SPARE PERSON 1 drop Inactive Administered Medications - up to 3 most recent administrations Medication Order MAR Action Action Date Dose Rate Site bevacizumab intraocular injection 1.25 mg (AVASTIN) 1.25 mg, intravitreal, As needed, DIRECTED OPHTHALMIC IN OR, Starting on Tue03/15/23 at 1409, Inject into right eye. Given 03/15/2023 2:09 PM SPARE PERSON 1.25 mg Right Eye documented in this encounter Care Teams Journal Box Inspector Relationship Specialty Start Date End Date Elsewhere, Pcp PCP - General Family Medicine 02/17/17 documented as of this encounter
--- OUTSIDE RECORDS SUMMARY | 2023-04-20 07:20 | XMS_ITS | Encounter Summary ---
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 [address] [place] [address] [facility] Referral ID Status Reason Start Date Expiration Date Visits Re quested Visits Authorized [id number] Closed 10/13/2022 10/13/2023 6 6 Encounter Details Date Type Department Care Team (Latest Contact Info) Description 12/21/2022 2:16 PM CDT - 12/21/2022 2:49 PM CDT Hospital Encounter Outpatient Procedure Center in [place], [place] [address] [place] [address] Madison Caicedo M.D. [address] [place] [address] Diabetes Mellitus Type 2 With Moderate Nonproliferative [...] AM CDT Clinical Communication Virtual Review in [place], [place] 200 [place] [address] 05/26/2023 8:30 AM CDT Ancillary Procedure Department of Ophthalmology in [address] [address] Madison Caicedo M.D. [address] [place] [phone] 05/26/2023 9:00 AM CDT Ancillary Procedure Department of Ophthalmology in [address] [address] Madison Caicedo M.D. [address] [place] [phone] 05/26/2023 9:15 AM CDT Office Visit Department of Ophthalmology in [address] [address] Madison Caicedo M.D. [address] [place] [phone] 05/26/2023 1:20 PM CDT Appointment Outpatient Procedure Center in [address] [address] Madison Caicedo M.D. [address] [place] [phone] documented as of this encounter Procedures Procedure [...] Right Eye ??[facility]: 33296-925-23 Balanced salt solution irrigation to injected eye [...] given if requested. Avastin RE Lot # [id number] Exp. 01/13/23 Filemon Mendez M.D. OPHTH CLINIC [...] For 365 days Given 04/18/2023 12:58 PM VETERANS' COORDINATOR 30 mL Given 03/15/2023 1:47 PM VETERANS' COORDINATOR 30 mL Given 02/15/2023 2:30 PM VETERANS' COORDINATOR 30 mL carboxymethylcellulose 1 % ophthalmic solution 1 drop (THERATEARS) 1 drop, right eye, As needed, dry eyes, DIRECTED OPHTHALMIC IN OR, Starting on Tue06/10/22 at 0918, For 365 days Given 04/18/2023 12:58 PM VETERANS' COORDINATOR 1 drop Given 03/15/2023 1:48 PM VETERANS' COORDINATOR 1 drop Given 02/15/2023 2:30 PM VETERANS' COORDINATOR 1 drop povidone-iodine 5 % ophthalmic solution 1 drop (BETADINE) 1 drop, right eye, As needed, irrigation, DIRECTED OPHTHALMIC IN OR, Starting on Tue06/10/22 at 0918, For 365 days, Irrigate ocular and periocular region and leave for 2 mins; then flush with sterile saline solution. Given 04/18/2023 12:58 PM VETERANS' COORDINATOR 1 drop Given 03/15/2023 1:48 PM VETERANS' COORDINATOR 1 drop Given 02/15/2023 2:30 PM VETERANS' COORDINATOR 1 drop proparacaine 0.5 % ophthalmic solution 1 drop (ALCAINE) 1 drop, right eye, As needed, DIRECTED OPHTHALMIC IN OR, Starting on Tue06/10/22 at 0918, For 365 days Given 04/18/2023 12:58 PM VETERANS' COORDINATOR 1 drop Given 03/15/2023 1:48 PM VETERANS' COORDINATOR 1 drop Given 02/15/2023 2:30 PM VETERANS' COORDINATOR 1 drop tetracaine (PF) 0.5 % ophthalmic solution 1 drop (ALTACAINE) 1 drop, right eye, As needed, DIRECTED OPHTHALMIC IN OR, Starting on Tue06/10/22 at 0918, For 365 days Given 04/18/2023 12:58 PM VETERANS' COORDINATOR 1 drop Given 03/15/2023 1:47 PM VETERANS' COORDINATOR 1 drop Given 02/15/2023 2:30 PM VETERANS' COORDINATOR 1 drop Inactive Administered Medications - up to 3 most recent administrations Medication Order MAR Action Action Date Dose Rate Site bevacizumab intraocular injection 1.25 mg (AVASTIN) 1.25 mg, intravitreal, As needed, DIRECTED OPHTHALMIC IN OR, Starting on Tue12/21/22 at 1618, Inject into right eye. Given 12/21/2022 4:18 PM CDT 1.25 mg Right Eye documented in this encounter Care Teams Law Enforcement Instructor Relationship Specialty Start Date End Date Elsewhere, Pcp PCP - General Family Medicine 02/17/17 documented as of this encounter
--- OUTSIDE RECORDS SUMMARY | 2023-04-20 07:20 | XMS_ITS | Encounter Summary ---
Author Name Unknown Organization [facility] Address [address] [place] [address] Care Team Providers Care Perennial House Manager Name Role Phone Elsewhere, Pcp Primary Care Provider Unavailabl e Encounter Details Date Type Department Care Team (Latest Contact Info) Description 03/09/2023 Orders Only Department of Ophthalmology in [place], [place] [address] [place] [address] Eliane Laura [address] [place] [phone] Diabetes Mellitus Due To Underlying Condition With [...] AM CDT Clinical Communication Virtual Review in [place], [place] 200 [place] [address] 05/26/2023 8:30 AM CDT Ancillary Procedure Department of Ophthalmology in [place], [place] [address] [place] [address] Madison Caicedo M.D. [address] [place] [phone] 05/26/2023 9:00 AM CDT Ancillary Procedure Department of Ophthalmology in [place], [place] [address] [place] [address] Madison Caicedo M.D. [address] [place] [phone] 05/26/2023 9:15 AM CDT Office Visit Department of Ophthalmology in [place], [place] [address] [place] [address] Madison Caicedo M.D. [address] [place] [phone] 05/26/2023 1:20 PM CDT Appointment Outpatient Procedure Center in [place], [place] [address] [place] [phone] Madison Caicedo M.D. 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
--- OUTSIDE RECORDS SUMMARY | 2023-04-20 07:20 | XMS_ITS | Encounter Summary ---
Author Name Unknown Organization [facility] Address [address] [place] [address] Care Team Providers Care Paralegal Legal Secretary Name Role Phone Elsewhere, Pcp Primary Care Provider Unavailabl e Reason for Referral * Outpatient (Routine) - Authorized Specialty Diagnoses / Procedures Referred By Araceli garza Referred To Contact Ophthalmology Madison Caicedo M.D. [address] [place] [address] [facility] Referral ID Status Reason Start Date Expiration Date V isits Requested Visits Authorized [id number] Authorized 10/13/2022 10/12/2025 1 1 Scheduling Instructions Plan: 10/13/2022 RIGHT EYE: Avastin right eye for Diabetic Macular Edema Follow up for 5 more Avastin in the right eye every 4-5 weeks. 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 [address] [place] [phone] [facility] Referral ID Status Reason Start Date Expiration Date Visits Re quested Visits Authorized [id number] Closed 10/13/2022 10/13/2023 5 5 Encounter Details Date Type Department Care Team (Latest Contact Info) Description 10/13/2022 Orders Only Department of Ophthalmology in [place], [place] [address] [place] [phone] Yuko Desai, EMT Diabetes Mellitus Type 2 [...] AM CDT Clinical Communication Virtual Review in [place], [place] 200 [place] [address] 05/26/2023 8:30 AM CDT Ancillary Procedure Department of Ophthalmology in [place], [place] [address] [place] [address] Madison Caicedo M.D. [address] [place] [phone] 05/26/2023 9:00 AM CDT Ancillary Procedure Department of Ophthalmology in [place], [place] [address] [place] [phone] Madison Caicedo M.D. [address] [place] [phone] 05/26/2023 9:15 AM CDT Office Visit Department of Ophthalmology in [place], [place] [address] [place] [phone] Madison Caicedo M.D. [address] [place] [phone] 05/26/2023 1:20 PM CDT Appointment Outpatient Procedure Center in [place], [place] [address] [place] [phone] Madison Caicedo M.D. 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
--- OUTSIDE RECORDS SUMMARY | 2023-04-20 07:20 | XMS_ITS | Encounter Summary ---
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 [address] [place] [address] [facility] Referral ID Status Reason Start Date Expiration Date Visits Re quested Visits Authorized [id number] Closed 10/13/2022 10/13/2023 6 6 Encounter Details Date Type Department Care Team (Latest Contact Info) Description 01/18/2023 1:38 PM UPPER AND BOTTOM LACER HAND - 01/18/2023 2:53 PM UPPER AND BOTTOM LACER HAND Hospital Encounter Outpatient Procedure Center in [place], [place] [address] [place] [address] Madison Caicedo M.D. [address] [place] [phone] Diabetes Mellitus Type 2 With Moderate Nonproliferative [...] AM CDT Clinical Communication Virtual Review in [place], [place] 200 [place] [address] 05/26/2023 8:30 AM CDT Ancillary Procedure Department of Ophthalmology in [place], [place] [address] [place] [phone] Madison Caicedo M.D. [address] [place] [phone] 05/26/2023 9:00 AM CDT Ancillary Procedure Department of Ophthalmology in [address] [phone] Mdaison Caicedo M.D. [address] [place] [phone] 05/26/2023 9:15 AM CDT Office Visit Department of Ophthalmology in [address] [address] Madison Caicedo M.D. [address] [place] [phone] 05/26/2023 1:20 PM CDT Appointment Outpatient Procedure Center in [address] [phone] Madison Caicedo M.D. 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 - 01/18/2023 5:29 PM UPPER AND BOTTOM LACER HAND Pre-Procedure Verification Pre-procedure verification conducted to verify [...] intravitreal, Site: Right Eye ??[facility]: 67912-910-33 Balanced salt solution irrigation to injected eye [...] given if requested. Avastin RE Lot # [id number] Exp. 02/04/23 Rj Bowen M.D. OPHTH CLINIC [...] For 365 days Given 04/18/2023 12:58 PM UPPER AND BOTTOM LACER HAND 30 mL Given 03/15/2023 1:47 PM UPPER AND BOTTOM LACER HAND 30 mL Given 02/15/2023 2:30 PM UPPER AND BOTTOM LACER HAND 30 mL carboxymethylcellulose 1 % ophthalmic solution 1 drop (THERATEARS) 1 drop, right eye, As needed, dry eyes, DIRECTED OPHTHALMIC IN OR, Starting on Tue06/10/22 at 0918, For 365 days Given 04/18/2023 12:58 PM UPPER AND BOTTOM LACER HAND 1 drop Given 03/15/2023 1:48 PM UPPER AND BOTTOM LACER HAND 1 drop Given 02/15/2023 2:30 PM UPPER AND BOTTOM LACER HAND 1 drop povidone-iodine 5 % ophthalmic solution 1 drop (BETADINE) 1 drop, right eye, As needed, irrigation, DIRECTED OPHTHALMIC IN OR, Starting on Tue06/10/22 at 0918, For 365 days, Irrigate ocular and periocular region and leave for 2 mins; then flush with sterile saline solution. Given 04/18/2023 12:58 PM UPPER AND BOTTOM LACER HAND 1 drop Given 03/15/2023 1:48 PM UPPER AND BOTTOM LACER HAND 1 drop Given 02/15/2023 2:30 PM UPPER AND BOTTOM LACER HAND 1 drop proparacaine 0.5 % ophthalmic solution 1 drop (ALCAINE) 1 drop, right eye, As needed, DIRECTED OPHTHALMIC IN OR, Starting on Tue06/10/22 at 0918, For 365 days Given 04/18/2023 12:58 PM UPPER AND BOTTOM LACER HAND 1 drop Given 03/15/2023 1:48 PM UPPER AND BOTTOM LACER HAND 1 drop Given 02/15/2023 2:30 PM UPPER AND BOTTOM LACER HAND 1 drop tetracaine (PF) 0.5 % ophthalmic solution 1 drop (ALTACAINE) 1 drop, right eye, As needed, DIRECTED OPHTHALMIC IN OR, Starting on Tue06/10/22 at 0918, For 365 days Given 04/18/2023 12:58 PM UPPER AND BOTTOM LACER HAND 1 drop Given 03/15/2023 1:47 PM UPPER AND BOTTOM LACER HAND 1 drop Given 02/15/2023 2:30 PM UPPER AND BOTTOM LACER HAND 1 drop Inactive Administered Medications - up to 3 most recent administrations Medication Order MAR Action Action Date Dose Rate Site bevacizumab intraocular injection 1.25 mg (AVASTIN) 1.25 mg, intravitreal, As needed, DIRECTED OPHTHALMIC IN OR, Starting on Tue01/18/23 at 1729, Inject into right eye. Given 01/18/2023 5:29 PM UPPER AND BOTTOM LACER HAND 1.25 mg Right Eye documented in this encounter Care Teams Isotope Hydrologist Relationship Specialty Start Date End Date Elsewhere, Pcp PCP - General Family Medicine 02/17/17 documented as of this encounter
--- OUTSIDE RECORDS SUMMARY | 2023-04-20 07:20 | XMS_ITS | Encounter Summary ---
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 [address] [place] [address] [facility] Referral ID Status Reason Start Date Expiration Date Visits Re quested Visits Authorized [id number] Closed 10/13/2022 10/13/2023 5 5 Encounter Details Date Type Department Care Team (Latest Contact Info) Description 12/21/2022 2:20 PM CDT Ancillary Procedure Department of Ophthalmology in [place], [place] [address] [place] [phone] Madison Caicedo M.D. [address] [place] [address] Diabetes Mellitus Type 2 With [...] CDT Clinical Communication Virtual Review in [place], [place] 200 [place] [address] 05/26/2023 8:30 AM CDT Ancillary Procedure Department of Ophthalmology in [address] [address] Madison Caicedo M.D. [address] [place] [phone] 05/26/2023 9:00 AM CDT Ancillary Procedure Department of Ophthalmology in [address] [phone] Madison Caicedo M.D. [address] [place] [phone] 05/26/2023 9:15 AM CDT Office Visit Department of Ophthalmology in [address] [phone] Madison Caicedo M.D. [address] [place] [phone] 05/26/2023 1:20 PM CDT Appointment Outpatient Procedure Center in [address] [address] Madison Caicedo M.D. 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
--- OUTSIDE RECORDS SUMMARY | 2023-04-20 07:20 | XMS_ITS | Encounter Summary ---
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 [address] [place] [address] [facility] Referral ID Status Reason Start Date Expiration Date Visits Re quested Visits Authorized [id number] Closed 10/13/2022 10/13/2023 5 5 Encounter Details Date Type Department Care Team (Latest Contact Info) Description 01/18/2023 2:00 PM DISPLAY CARVER Ancillary Procedure Department of Ophthalmology in [place], [place] [address] [place] [phone] Madison Caicedo M.D. [address] [place] [address] Diabetes Mellitus Type 2 With [...] AM CDT Clinical Communication Virtual Review in [place], [place] 200 [place] [address] 05/26/2023 8:30 AM CDT Ancillary Procedure Department of Ophthalmology in [address] [address] Madison Caicedo M.D. [address] [place] [phone] 05/26/2023 9:00 AM CDT Ancillary Procedure Department of Ophthalmology in [address] [phone] Madison Caicedo M.D. [address] [place] [phone] 05/26/2023 9:15 AM CDT Office Visit Department of Ophthalmology in [address] [phone] Madison Caicedo M.D. [address] [place] [phone] 05/26/2023 1:20 PM CDT Appointment Outpatient Procedure Center in [address] [phone] Madison Caicedo M.D. 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
--- OUTSIDE RECORDS SUMMARY | 2023-04-20 07:20 | XMS_ITS | Encounter Summary ---
Author Name Unknown Organization [facility] Address [address] [place] [address] Care Team Providers Care Hotel Clerk Name Role Phone Elsewhere, Pcp Primary Care Provider Unavailabl e Encounter Details Date Type Department Care Team (Latest Contact Info) Description 01/18/2023 2:54 PM OXIDIZED FINISH PLATER - 01/18/2023 11:59 PM OXIDIZED FINISH PLATER Hospital Encounter Outpatient Procedure Center in [place], [place] [address] [place] [phone] Rj Bowen M.D. [address] [place] [address] Discharge Disposition: Home or Self Care Social [...] AM CDT Clinical Communication Virtual Review in [place], [place] 200 [place] [address] 05/26/2023 8:30 AM CDT Ancillary Procedure Department of Ophthalmology in [address] [phone] Madison Caicedo M.D. [address] [place] [phone] 05/26/2023 9:00 AM CDT Ancillary Procedure Department of Ophthalmology in [address] [address] Madison Caicedo M.D. [address] [place] [phone] 05/26/2023 9:15 AM CDT Office Visit Department of Ophthalmology in [address] [address] Madison Caicedo M.D. [address] [place] [phone] 05/26/2023 1:20 PM CDT Appointment Outpatient Procedure Center in [address] [address] Madison Caicedo M.D. 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 - 01/18/2023 5:29 PM OXIDIZED FINISH PLATER Pre-Procedure Verification Pre-procedure verification conducted to verify [...] 25 mg/mL ??Route: intravitreal, Site: Right Eye ??[facility]: [id number] Balanced salt solution irrigation to injected eye [...] given if requested. Avastin RE Lot # [id number] Exp. 02/04/23 Rj Bowen M.D. OPHTH CLINIC PROCEDU RES documented in this encounter Visit Diagnoses Not on filedocumented in this encounter Care Teams Hotel Clerk Relationship Specialty Start Date End Date Elsewhere, Pcp PCP - General Family Medicine 02/17/17 documented as of this encounter
--- OUTSIDE RECORDS SUMMARY | 2023-04-20 07:20 | XMS_ITS | Encounter Summary ---
Author Name Unknown Organization [facility] Address [address] [place] [address] Care Team Providers Care Mobile Phone Salesperson Name Role Phone Elsewhere, Pcp Primary Care Provider Unavailabl e Encounter Details Date Type Department Care Team (Latest Contact Info) Description 11/11/2022 Orders Only Department of Ophthalmology in [place], [place] [address] [place] [phone] Eliane Laura [address] [place] [phone] Diabetes Mellitus Due To Underlying Condition With [...] AM CDT Clinical Communication Virtual Review in [place], [place] 200 [place] [address] 05/26/2023 8:30 AM CDT Ancillary Procedure Department of Ophthalmology in [place], [place] [address] [place] [address] Madison Caicedo M.D. [address] [place] [phone] 05/26/2023 9:00 AM CDT Ancillary Procedure Department of Ophthalmology in [place], [place] [address] [place] [address] Madison Caicedo M.D. [address] [place] [phone] 05/26/2023 9:15 AM CDT Office Visit Department of Ophthalmology in [place], [place] [address] [place] [address] Madison Caicedo M.D. [address] [place] [phone] 05/26/2023 1:20 PM CDT Appointment Outpatient Procedure Center in [place], [place] [address] [place] [phone] Madison Caicedo M.D. 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
--- OUTSIDE RECORDS SUMMARY | 2023-04-20 07:20 | XMS_ITS | Encounter Summary ---
Author Name Unknown Organization [facility] Address [address] [place] [address] Care Team Providers Care Agricultural Engineering Technicians Name Role Phone Elsewhere, Pcp Primary Care Provider Unavailabl e Encounter Details Date Type Department Care Team (Latest Contact Info) Description 12/15/2022 Orders Only Department of Ophthalmology in [place], [place] [address] [place] [address] Eliane Laura [address] [place] [address] Diabetes Mellitus Due To Underlying Condition With [...] AM CDT Clinical Communication Virtual Review in [place], [place] 200 [place] [address] 05/26/2023 8:30 AM CDT Ancillary Procedure Department of Ophthalmology in [place], [place] [address] [place] [address] Madison Caicedo M.D. [address] [place] [phone] 05/26/2023 9:00 AM CDT Ancillary Procedure Department of Ophthalmology in [place], [place] [address] [place] [address] Madison Caicedo M.D. [address] [place] [phone] 05/26/2023 9:15 AM CDT Office Visit Department of Ophthalmology in [place], [place] [address] [place] [address] Madison Caicedo M.D. [address] [place] [phone] 05/26/2023 1:20 PM CDT Appointment Outpatient Procedure Center in [place], [place] [address] [place] [phone] Madison Caicedo M.D. 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
--- OUTSIDE RECORDS SUMMARY | 2023-04-20 07:20 | XMS_ITS | Encounter Summary ---
Author Name Unknown Organization [facility] Address [address] [place] [address] Care Team Providers Care Home Theater Specialist Name Role Phone Elsewhere, Pcp Primary Care Provider Unavailabl e Encounter Details Date Type Department Care Team (Latest Contact Info) Description 02/09/2023 Orders Only Department of Ophthalmology in [place], [place] [address] [place] [address] Eliane Laura [address] [place] [phone] Diabetes Mellitus Due To Underlying Condition With [...] AM CDT Clinical Communication Virtual Review in [place], [place] 200 [place] [address] 05/26/2023 8:30 AM CDT Ancillary Procedure Department of Ophthalmology in [place], [place] [address] [place] [address] Madison Caicedo M.D. [address] [place] [phone] 05/26/2023 9:00 AM CDT Ancillary Procedure Department of Ophthalmology in [place], [place] [address] [place] [address] Madison Caicedo M.D. [address] [place] [phone] 05/26/2023 9:15 AM CDT Office Visit Department of Ophthalmology in [place], [place] [address] [place] [address] Madison Caicedo M.D. [address] [place] [phone] 05/26/2023 1:20 PM CDT Appointment Outpatient Procedure Center in [place], [place] [address] [place] [phone] Madison Caicedo M.D. 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
--- OUTSIDE RECORDS SUMMARY | 2023-04-20 07:20 | XMS_ITS | Encounter Summary ---
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 [address] [place] [address] [facility] Referral ID Status Reason Start Date Expiration Date Visits Re quested Visits Authorized [id number] Closed 10/13/2022 10/13/2023 5 5 Encounter Details Date Type Department Care Team (Latest Contact Info) Description 11/17/2022 2:40 PM CDT Ancillary Procedure Department of Ophthalmology in [place], [place] [address] [place] [phone] Madison Caicedo M.D. [address] [place] [address] Diabetes Mellitus Type 2 With [...] AM CDT Clinical Communication Virtual Review in [place], [place] 200 [place] [address] 05/26/2023 8:30 AM CDT Ancillary Procedure Department of Ophthalmology in [address] [address] Madison Caicedo M.D. [address] [place] [phone] 05/26/2023 9:00 AM CDT Ancillary Procedure Department of Ophthalmology in [address] [phone] Madison Caicedo M.D. [address] [place] [phone] 05/26/2023 9:15 AM CDT Office Visit Department of Ophthalmology in [address] [address] Madison Caicedo M.D. [address] [place] [phone] 05/26/2023 1:20 PM CDT Appointment Outpatient Procedure Center in [address] [address] Madison Caicedo M.D. 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
--- OUTSIDE RECORDS SUMMARY | 2023-04-20 07:20 | XMS_ITS | Encounter Summary ---
Author Name Unknown Organization [facility] Address [address] [place] [address] Care Team Providers Care Slackman Name Role Phone Elsewhere, Pcp Primary Care Provider Unavailabl e Encounter Details Date Type Department Care Team (Latest Contact Info) Description 02/15/2023 2:29 PM TRIM MACHINE OPERATOR - 02/15/2023 11:59 PM TRIM MACHINE OPERATOR Hospital Encounter Outpatient Procedure Center in [place], [place] [address] [place] [address] Bebe Duran M.D. [address] [place] [address] Discharge Disposition: Home or Self Care Social [...] AM CDT Clinical Communication Virtual Review in [place], [place] 200 [place] [address] 05/26/2023 8:30 AM CDT Ancillary Procedure Department of Ophthalmology in [address] [address] Madison Caicedo M.D. [address] [place] [phone] 05/26/2023 9:00 AM CDT Ancillary Procedure Department of Ophthalmology in [address] [address] Madison Caicedo M.D. [address] [place] [phone] 05/26/2023 9:15 AM CDT Office Visit Department of Ophthalmology in [address] [address] Madison Caicedo M.D. [address] [place] [phone] 05/26/2023 1:20 PM CDT Appointment Outpatient Procedure Center in [address] [address] Madison Caicedo M.D. 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 - 02/15/2023 3:11 PM TRIM MACHINE OPERATOR Pre-Procedure Verification Pre-procedure verification conducted [...] Site: Right Eye ??[facility]: 66101-985-16 Balanced salt solution irrigation to injected eye [...] given if requested. Avastin RE Lot # [id number] Exp. 03/23/23 Bebe Streeter M.D. OPH CLINIC PRO CEDURES documented in this encounter Visit Diagnoses Not on filedocumented in this encounter Care Teams Slackman Relationship Specialty Start Date End Date Elsewhere, Pcp PCP - General Family Medicine 02/17/17 documented as of this encounter
--- OUTSIDE RECORDS SUMMARY | 2023-04-20 07:20 | XMS_ITS | Encounter Summary ---
Author Name Unknown Organization 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 [address] [place] [address] [facility] Referral ID Status Reason Start Date Expiration Date Visits Re quested Visits Authorized [id number] Closed 10/13/2022 10/13/2023 6 6 Encounter Details Date Type Department Care Team (Latest Contact Info) Description 11/17/2022 2:26 PM CDT - 11/17/2022 3:02 PM CDT Hospital Encounter Outpatient Procedure Center in [place], [place] [address] [place] [address] Madison Caicedo M.D. [address] [place] [address] Diabetes Mellitus Type 2 With Moderate Nonproliferative [...] AM CDT Clinical Communication Virtual Review in [place], [place] 200 [place] [address] 05/26/2023 8:30 AM CDT Ancillary Procedure Department of Ophthalmology in [address] [address] Madison Caicedo M.D. [address] [place] [phone] 05/26/2023 9:00 AM CDT Ancillary Procedure Department of Ophthalmology in [address] [address] Madison Caicedo M.D. [address] [place] [phone] 05/26/2023 9:15 AM CDT Office Visit Department of Ophthalmology in [address] [address] Madison Caicedo M.D. [address] [place] [phone] 05/26/2023 1:20 PM CDT Appointment Outpatient Procedure Center in [address] [address] Madison Caicedo M.D. [address] [place] [phone] documented as of this encounter Procedures Procedure [...] mg/mL ??Route: intravitreal, Site: Right Eye ??[facility]: 26557-066-79 Balanced salt solution irrigation to injected eye [...] and return schedule given if requested. Lot [id number] exp 12/28/2022 Benitez Yuan M.D. OPHTH CLINIC [...] For 365 days Given 04/18/2023 12:58 PM SUPERVISOR TELEPHONE INFORMATION 30 mL Given 03/15/2023 1:47 PM SUPERVISOR TELEPHONE INFORMATION 30 mL Given 02/15/2023 2:30 PM SUPERVISOR TELEPHONE INFORMATION 30 mL carboxymethylcellulose 1 % ophthalmic solution 1 drop (THERATEARS) 1 drop, right eye, As needed, dry eyes, DIRECTED OPHTHALMIC IN OR, Starting on Tue06/10/22 at 0918, For 365 days Given 04/18/2023 12:58 PM SUPERVISOR TELEPHONE INFORMATION 1 drop Given 03/15/2023 1:48 PM SUPERVISOR TELEPHONE INFORMATION 1 drop Given 02/15/2023 2:30 PM SUPERVISOR TELEPHONE INFORMATION 1 drop povidone-iodine 5 % ophthalmic solution 1 drop (BETADINE) 1 drop, right eye, As needed, irrigation, DIRECTED OPHTHALMIC IN OR, Starting on Tue06/10/22 at 0918, For 365 days, Irrigate ocular and periocular region and leave for 2 mins; then flush with sterile saline solution. Given 04/18/2023 12:58 PM SUPERVISOR TELEPHONE INFORMATION 1 drop Given 03/15/2023 1:48 PM SUPERVISOR TELEPHONE INFORMATION 1 drop Given 02/15/2023 2:30 PM SUPERVISOR TELEPHONE INFORMATION 1 drop proparacaine 0.5 % ophthalmic solution 1 drop (ALCAINE) 1 drop, right eye, As needed, DIRECTED OPHTHALMIC IN OR, Starting on Tue06/10/22 at 0918, For 365 days Given 04/18/2023 12:58 PM SUPERVISOR TELEPHONE INFORMATION 1 drop Given 03/15/2023 1:48 PM SUPERVISOR TELEPHONE INFORMATION 1 drop Given 02/15/2023 2:30 PM SUPERVISOR TELEPHONE INFORMATION 1 drop tetracaine (PF) 0.5 % ophthalmic solution 1 drop (ALTACAINE) 1 drop, right eye, As needed, DIRECTED OPHTHALMIC IN OR, Starting on Tue06/10/22 at 0918, For 365 days Given 04/18/2023 12:58 PM SUPERVISOR TELEPHONE INFORMATION 1 drop Given 03/15/2023 1:47 PM SUPERVISOR TELEPHONE INFORMATION 1 drop Given 02/15/2023 2:30 PM SUPERVISOR TELEPHONE INFORMATION 1 drop Inactive Administered Medications - up to 3 most recent administrations Medication Order MAR Action Action Date Dose Rate Site bevacizumab intraocular injection 1.25 mg (AVASTIN) 1.25 mg, intravitreal, As needed, DIRECTED OPHTHALMIC IN OR, Starting on Tue11/17/22 at 1640, Inject into right eye. Given 11/17/2022 4:40 PM CDT 1.25 mg Right Eye documented in this encounter Care Teams Master Control Supervisor Relationship Specialty Start Date End Date Elsewhere, Pcp PCP - General Family Medicine 02/17/17 documented as of this encounter
--- OUTSIDE RECORDS SUMMARY | 2023-04-20 07:20 | XMS_ITS | Encounter Summary ---
Author Name Unknown Organization [facility] Address [address] [place] [address] Care Team Providers Care Golf Tournament Consultant Name Role Phone Elsewhere, Pcp Primary Care Provider Unavailabl e Encounter Details Date Type Department Care Team (Latest Contact Info) Description 11/17/2022 3:03 PM CDT - 11/17/2022 11:59 PM CDT Hospital Encounter Outpatient Procedure Center in [place], [place] [address] [place] [address] Benitez Yuan M.D. [address] [place] [address] Discharge Disposition: Home or Self Care Social [...] AM CDT Clinical Communication Virtual Review in [place], [place] 200 [place] [address] 05/26/2023 8:30 AM CDT Ancillary Procedure Department of Ophthalmology in [address] [address] Madison Caicedo M.D. [address] [place] [phone] 05/26/2023 9:00 AM CDT Ancillary Procedure Department of Ophthalmology in [address] [address] Madison Caicedo M.D. [address] [place] [phone] 05/26/2023 9:15 AM CDT Office Visit Department of Ophthalmology in [address] [address] Madison Caicedo M.D. [address] [place] [phone] 05/26/2023 1:20 PM CDT Appointment Outpatient Procedure Center in [address] [address] Madison Caicedo M.D. [address] [place] [phone] documented as of this encounter Procedures Procedure [...] 25 mg/mL ??Route: intravitreal, Site: Right Eye ??[facility]: 03593-704-77 Balanced salt solution irrigation to injected eye [...] and return schedule given if requested. Lot [id number] exp 12/28/2022 Benitez Yuan M.D. OPH CLINIC PRO CEDURES documented in this encounter Visit Diagnoses Not on filedocumented in this encounter Care Teams Golf Tournament Consultant Relationship Specialty Start Date End Date Elsewhere, Pcp PCP - General Family Medicine 02/17/17 documented as of this encounter
--- OUTSIDE RECORDS SUMMARY | 2023-04-20 07:20 | XMS_ITS | Encounter Summary ---
Author Name Unknown Organization [facility] Address [address] [place] [address] Care Team Providers Care Archeology Faculty Member Name Role Phone Elsewhere, Pcp Primary Care Provider Unavailabl e Encounter Details Date Type Department Care Team (Latest Contact Info) Description 01/12/2023 Orders Only Department of Ophthalmology in [place], [place] [address] [place] [phone] Eliane Laura [address] [place] [phone] Diabetes Mellitus Due To Underlying Condition With [...] AM CDT Clinical Communication Virtual Review in [place], [place] [address] [place] [address] 05/26/2023 8:30 AM CDT Ancillary Procedure Department of Ophthalmology in [place], [place] [address] [place] [address] Madison Caicedo M.D. [address] [place] [phone] 05/26/2023 9:00 AM CDT Ancillary Procedure Department of Ophthalmology in [place], [place] [address] [place] [address] Madison Caicedo M.D. [address] [place] [phone] 05/26/2023 9:15 AM CDT Office Visit Department of Ophthalmology in [place], [place] [address] [place] [address] Madison Caicedo M.D. [address] [place] [phone] 05/26/2023 1:20 PM CDT Appointment Outpatient Procedure Center in [place], [place] [address] [place] [phone] Madison Caicedo M.D. 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
--- OUTSIDE RECORDS SUMMARY | 2023-04-20 07:20 | XMS_ITS | Encounter Summary ---
Author Name Unknown Organization [facility] Address [address] [place] [address] Care Team Providers Care Pet Resort Concierge Name Role Phone Elsewhere, Pcp Primary Care [...] INJECTION INTRAVITREAL Madison Caicedo M.D. 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 [address] [place] [address] [facility] Referral ID Status Reason Start Date Expiration Date Visits Re quested Visits Authorized [id number] Closed 10/13/2022 10/13/2023 6 6 Encounter Details Date Type Department Care Team (Latest Contact Info) Description 02/15/2023 1:42 PM FORESTRY FIRE AID - 02/15/2023 2:28 PM FORESTRY FIRE AID Hospital Encounter Outpatient Procedure Center in [place], [place] [address] [place] [address] Madison Caicedo M.D. [address] [place] [phone] Diabetes Mellitus Type 2 With Moderate Nonproliferative [...] AM CDT Clinical Communication Virtual Review in [place], [place] 200 [place] [address] 05/26/2023 8:30 AM CDT Ancillary Procedure Department of Ophthalmology in [place], [place] [address] [place] [phone] Madison Caicedo M.D. [address] [place] [phone] 05/26/2023 9:00 AM CDT Ancillary Procedure Department of Ophthalmology in [address] [address] Madison Caicedo M.D. [address] [place] [phone] 05/26/2023 9:15 AM CDT Office Visit Department of Ophthalmology in [address] [address] Madison Caicedo M.D. [address] [place] [phone] 05/26/2023 1:20 PM CDT Appointment Outpatient Procedure Center in [address] [address] Madison Caicedo M.D. 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 - 02/15/2023 3:11 PM FORESTRY FIRE AID Pre-Procedure Verification Pre-procedure verification conducted to verify [...] intravitreal, Site: Right Eye ??[facility]: 00846-448-27 Balanced salt solution irrigation to injected eye [...] given if requested. Avastin RE Lot # [id number] Exp. 03/23/23 Bebe Streeter M.D. OPHTH CLINIC [...] For 365 days Given 04/18/2023 12:58 PM FORESTRY FIRE AID 30 mL Given 03/15/2023 1:47 PM FORESTRY FIRE AID 30 mL Given 02/15/2023 2:30 PM FORESTRY FIRE AID 30 mL carboxymethylcellulose 1 % ophthalmic solution 1 drop (THERATEARS) 1 drop, right eye, As needed, dry eyes, DIRECTED OPHTHALMIC IN OR, Starting on Tue06/10/22 at 0918, For 365 days Given 04/18/2023 12:58 PM FORESTRY FIRE AID 1 drop Given 03/15/2023 1:48 PM FORESTRY FIRE AID 1 drop Given 02/15/2023 2:30 PM FORESTRY FIRE AID 1 drop povidone-iodine 5 % ophthalmic solution 1 drop (BETADINE) 1 drop, right eye, As needed, irrigation, DIRECTED OPHTHALMIC IN OR, Starting on Tue06/10/22 at 0918, For 365 days, Irrigate ocular and periocular region and leave for 2 mins; then flush with sterile saline solution. Given 04/18/2023 12:58 PM FORESTRY FIRE AID 1 drop Given 03/15/2023 1:48 PM FORESTRY FIRE AID 1 drop Given 02/15/2023 2:30 PM FORESTRY FIRE AID 1 drop proparacaine 0.5 % ophthalmic solution 1 drop (ALCAINE) 1 drop, right eye, As needed, DIRECTED OPHTHALMIC IN OR, Starting on Tue06/10/22 at 0918, For 365 days Given 04/18/2023 12:58 PM FORESTRY FIRE AID 1 drop Given 03/15/2023 1:48 PM FORESTRY FIRE AID 1 drop Given 02/15/2023 2:30 PM FORESTRY FIRE AID 1 drop tetracaine (PF) 0.5 % ophthalmic solution 1 drop (ALTACAINE) 1 drop, right eye, As needed, DIRECTED OPHTHALMIC IN OR, Starting on Tue06/10/22 at 0918, For 365 days Given 04/18/2023 12:58 PM FORESTRY FIRE AID 1 drop Given 03/15/2023 1:47 PM FORESTRY FIRE AID 1 drop Given 02/15/2023 2:30 PM FORESTRY FIRE AID 1 drop Inactive Administered Medications - up to 3 most recent administrations Medication Order MAR Action Action Date Dose Rate Site bevacizumab intraocular injection 1.25 mg (AVASTIN) 1.25 mg, intravitreal, As needed, DIRECTED OPHTHALMIC IN OR, Starting on Tue02/15/23 at 1511, Inject into right eye. Given 02/15/2023 3:11 PM FORESTRY FIRE AID 1.25 mg Right Eye documented in this encounter Care Teams Pet Resort Concierge Relationship Specialty Start Date End Date Elsewhere, Pcp PCP - General Family Medicine 02/17/17 documented as of this encounter
--- OUTSIDE RECORDS SUMMARY | 2023-04-20 07:20 | XMS_ITS | Encounter Summary ---
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 [address] [place] [address] [facility] Referral ID Status Reason Start Date Expiration Date Visits Re quested Visits Authorized [id number] Closed 10/13/2022 10/13/2023 5 5 Encounter Details Date Type Department Care Team (Latest Contact Info) Description 02/15/2023 2:00 PM ACCOUNTING AUDITOR Ancillary Procedure Department of Ophthalmology in [place], [place] [address] [place] [phone] Madison Caicedo M.D. [address] [place], [place] [...] AM CDT Clinical Communication Virtual Review in [place], [place] 200 [place] [address] 05/26/2023 8:30 AM CDT Ancillary Procedure Department of Ophthalmology in [address] [address] Madison Caicedo M.D. [address] [place] [phone] 05/26/2023 9:00 AM CDT Ancillary Procedure Department of Ophthalmology in [address] [address] Madison Caicedo M.D. [address] [place] [phone] 05/26/2023 9:15 AM CDT Office Visit Department of Ophthalmology in [address] [address] Madison Caicedo M.D. [address] [place] [phone] 05/26/2023 1:20 PM CDT Appointment Outpatient Procedure Center in [address] [address] aMdison Caicedo M.D. 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
--- OUTSIDE RECORDS SUMMARY | 2023-04-20 07:20 | XMS_ITS | Encounter Summary ---
Author Name Unknown Organization [facility] Address [address] [place] [address] Care Team Providers Care Sales And Marketing Representative Name Role Phone Elsewhere, Pcp Primary Care Provider Unavailabl e Encounter Details Date Type Department Care Team (Latest Contact Info) Description 12/21/2022 2:50 PM CDT - 12/21/2022 11:59 PM CDT Hospital Encounter Outpatient Procedure Center in [place], [place] [address] [place] [address] Filemon Mendez M.D. [address] [place] [address] Discharge Disposition: Home or Self Care Social [...] AM CDT Clinical Communication Virtual Review in [place], [place] 200 [place] [address] 05/26/2023 8:30 AM CDT Ancillary Procedure Department of Ophthalmology in [address] [address] Madison Caicedo M.D. [address] [place] [phone] 05/26/2023 9:00 AM CDT Ancillary Procedure Department of Ophthalmology in [address] [address] Madison Caicedo M.D. [address] [place] [phone] 05/26/2023 9:15 AM CDT Office Visit Department of Ophthalmology in [address] [address] Madison Caicedo M.D. [address] [place] [phone] 05/26/2023 1:20 PM CDT Appointment Outpatient Procedure Center in [address] [address] Madison Caicedo M.D. [address] [place] [phone] documented as of this encounter Procedures Procedure [...] Site: Right Eye ??[facility]: 93230-263-30 Balanced salt solution irrigation to injected eye [...] given if requested. Avastin RE Lot # [id number] Exp. 01/13/23 Filemon Mendez M.D. OPHTH CLINIC PROCED [facility] documented in this encounter Visit Diagnoses Not on filedocumented in this encounter Care Teams Sales And Marketing Representative Relationship Specialty Start Date End Date Elsewhere, Pcp PCP - General Family Medicine 02/17/17 documented as of this encounter
--- OUTSIDE RECORDS SUMMARY | 2023-04-20 07:21 | XMS_ITS | Encounter Summary ---
Author Name Unknown Organization [facility] Address [address] [place] [address] Care Team Providers Care Cue Selector Name Role Phone Elsewhere, Pcp Primary Care Provider Unavailabl e Reason for Visit * Reason Comments Injection Visit * Outpatient (Routine) - Closed Specialty Diagnoses / Procedures Referred By Araceli garza Referred To Contact Ophthalmology Madison Caicedo M.D. [address] [place] [address] [facility] Referral ID Status Reason Start Date Expiration Date Visits Re quested Visits Authorized [id number] Closed 06/10/2022 06/09/2025 1 1 Encounter Details Date Type Department Care Team (Latest Contact Info) Description 10/13/2022 9:45 AM CDT Office Visit Department of Ophthalmology in [place], [place] [address] [place] [phone] Madison Caicedo M.D. [address] [place] [phone] Diabetes Mellitus Type 2 With Moderate Nonproliferative [...] left eye: no neovascularization, macular hyperfluorescence temporal; [facility] OCT macula: 10/13/2022 right eye: macular [...] last injection with OCT macula Injection location: [facility] injection slot Addendum 03/15/23: Add one more injection Avastin RIGHT eye at 4-[address] Caicedo 5-6 weeks after last injection with OCT macula both eyes ATOR MECHANIC documented in this encounter Plan of Treatment Upcoming Encounters Date Type Department Care Team (Latest Contact Info) Description 05/23/2023 9:45 AM CDT Clinical Communication Virtual Review in [place], [place] 200 [place] [address] 05/26/2023 8:30 AM CDT Ancillary Procedure Department of Ophthalmology in [place], [place] [address] [place] [phone] Madison Caicedo M.D. [address] [place] [phone] 05/26/2023 9:00 AM CDT Ancillary Procedure Department of Ophthalmology in [address] [address] Madison Caicedo M.D. [address] [place] [phone] 05/26/2023 9:15 AM CDT Office Visit Department of Ophthalmology in [address] [address] Madison Caicedo M.D. [address] [place] [phone] 05/26/2023 1:20 PM CDT Appointment Outpatient Procedure Center in [place], [place] [address] [place] [phone] Madison Caicedo M.D. 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
--- OUTSIDE RECORDS SUMMARY | 2023-04-20 07:21 | XMS_ITS | Encounter Summary ---
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 [address] [place] [address] [facility] Referral ID Status Reason Start Date Expiration Date Visits Re quested Visits Authorized [id number] Closed 06/10/2022 06/10/2023 3 3 Encounter Details Date Type Department Care Team (Latest Contact Info) Description 09/07/2022 2:20 PM CDT Ancillary Procedure Department of Ophthalmology in [place], [place] [address] [place] [phone] Madison Caicedo M.D. [address] [place] [address] Diabetes Mellitus Type 2 With [...] AM CDT Clinical Communication Virtual Review in [place], [place] 200 [place] [address] 05/26/2023 8:30 AM CDT Ancillary Procedure Department of Ophthalmology in [address] [address] Madison Caicedo M.D. [address] [place] [phone] 05/26/2023 9:00 AM CDT Ancillary Procedure Department of Ophthalmology in [address] [address] Madison Caicedo M.D. [address] [place] [phone] 05/26/2023 9:15 AM CDT Office Visit Department of Ophthalmology in [address] [address] Madison Caicedo M.D. [address] [place] [phone] 05/26/2023 1:20 PM CDT Appointment Outpatient Procedure Center in [address] [address] Madison Caicedo M.D. 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
--- OUTSIDE RECORDS SUMMARY | 2023-04-20 07:21 | XMS_ITS | Encounter Summary ---
Author Name Unknown Organization [facility] Address [address] [place] [address] Care Team Providers Care Electronics Hardware Design Engineer Name Role Phone Elsewhere, Pcp Primary Care Provider Unavailabl e Encounter Details Date Type Department Care Team (Latest Contact Info) Description 10/07/2022 Orders Only Department of Ophthalmology in [place], [place] [address] [place] [address] Eliane Laura [address] [place] [address] Diabetes Mellitus Due To Underlying Condition With [...] AM CDT Clinical Communication Virtual Review in [place], [place] 200 [place] [address] 05/26/2023 8:30 AM CDT Ancillary Procedure Department of Ophthalmology in [place], [place] [address] [place] [address] Madison Caicedo M.D. [address] [place] [phone] 05/26/2023 9:00 AM CDT Ancillary Procedure Department of Ophthalmology in [place], [place] [address] [place] [address] Madison Caicedo M.D. [address] [place] [phone] 05/26/2023 9:15 AM CDT Office Visit Department of Ophthalmology in [place], [place] [address] [place] [address] Madison Caicedo M.D. [address] [place] [phone] 05/26/2023 1:20 PM CDT Appointment Outpatient Procedure Center in [place], [place] [address] [place] [phone] Madison Caicedo M.D. 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
--- OUTSIDE RECORDS SUMMARY | 2023-04-20 07:21 | XMS_ITS | Encounter Summary ---
Author Name Unknown Organization [facility] Address [address] [place] [address] Care Team Providers Care Portfolio Architect Name Role Phone Elsewhere, Pcp Primary [...] INJECTION INTRAVITREAL Madison Caicedo M.D. 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 [address] [place] [address] [facility] Referral ID Status Reason Start Date Expiration Date Visits Re quested Visits Authorized [id number] Closed 06/10/2022 06/10/2023 4 4 Encounter Details Date Type Department Care Team (Latest Contact Info) Description 10/13/2022 11:45 AM CDT - 10/13/2022 12:38 PM CDT Hospital Encounter Outpatient Procedure Center in [place], [place] [address] [place] [address] Madison Caicedo M.D. [address] [place] [address] Diabetes Mellitus Type 2 With Mild Nonproliferative [...] AM CDT Clinical Communication Virtual Review in [place], [place] 200 [place] [address] 05/26/2023 8:30 AM CDT Ancillary Procedure Department of Ophthalmology in [address] [address] Madison Caicedo M.D. [address] [place] [phone] 05/26/2023 9:00 AM CDT Ancillary Procedure Department of Ophthalmology in [address] [address] Madison Caicedo M.D. [address] [place] [phone] 05/26/2023 9:15 AM CDT Office Visit Department of Ophthalmology in [address] [address] Madison Caicedo M.D. [address] [place] [phone] 05/26/2023 1:20 PM CDT Appointment Outpatient Procedure Center in [address] [address] Madison Caicedo M.D. [address] [place] [phone] documented as of this encounter Procedures Procedure [...] mg/mL ??Route: intravitreal, Site: Right Eye ??[facility]: 99880-303-63 Balanced salt solution irrigation to injected eye [...] and return schedule given if requested. Lot [id number] exp 11/19/2022 Filemon Mendez M.D. OPHTH CLINIC [...] For 365 days Given 04/18/2023 12:58 PM ENVIRONMENTAL SYSTEMS COORDINATOR 30 mL Given 03/15/2023 1:47 PM ENVIRONMENTAL SYSTEMS COORDINATOR 30 mL Given 02/15/2023 2:30 PM ENVIRONMENTAL SYSTEMS COORDINATOR 30 mL carboxymethylcellulose 1 % ophthalmic solution 1 drop (THERATEARS) 1 drop, right eye, As needed, dry eyes, DIRECTED OPHTHALMIC IN OR, Starting on Itzel 06/10/22 at 0918, For 365 days Given 04/18/2023 12:58 PM ENVIRONMENTAL SYSTEMS COORDINATOR 1 drop Given 03/15/2023 1:48 PM ENVIRONMENTAL SYSTEMS COORDINATOR 1 drop Given 02/15/2023 2:30 PM ENVIRONMENTAL SYSTEMS COORDINATOR 1 drop povidone-iodine 5 % ophthalmic solution 1 drop (BETADINE) 1 drop, right eye, As needed, irrigation, DIRECTED OPHTHALMIC IN OR, Starting on Tue06/10/22 at 0918, For 365 days, Irrigate ocular and periocular region and leave for 2 mins; then flush with sterile saline solution. Given 04/18/2023 12:58 PM ENVIRONMENTAL SYSTEMS COORDINATOR 1 drop Given 03/15/2023 1:48 PM ENVIRONMENTAL SYSTEMS COORDINATOR 1 drop Given 02/15/2023 2:30 PM ENVIRONMENTAL SYSTEMS COORDINATOR 1 drop proparacaine 0.5 % ophthalmic solution 1 drop (ALCAINE) 1 drop, right eye, As needed, DIRECTED OPHTHALMIC IN OR, Starting on Tue06/10/22 at 0918, For 365 days Given 04/18/2023 12:58 PM ENVIRONMENTAL SYSTEMS COORDINATOR 1 drop Given 03/15/2023 1:48 PM ENVIRONMENTAL SYSTEMS COORDINATOR 1 drop Given 02/15/2023 2:30 PM ENVIRONMENTAL SYSTEMS COORDINATOR 1 drop tetracaine (PF) 0.5 % ophthalmic solution 1 drop (ALTACAINE) 1 drop, right eye, As needed, DIRECTED OPHTHALMIC IN OR, Starting on Tue06/10/22 at 0918, For 365 days Given 04/18/2023 12:58 PM ENVIRONMENTAL SYSTEMS COORDINATOR 1 drop Given 03/15/2023 1:47 PM ENVIRONMENTAL SYSTEMS COORDINATOR 1 drop Given 02/15/2023 2:30 PM ENVIRONMENTAL SYSTEMS COORDINATOR 1 drop Inactive Administered Medications - up to 3 most recent administrations Medication Order MAR Action Action Date Dose Rate Site bevacizumab intraocular injection 1.25 mg (AVASTIN) 1.25 mg, intravitreal, As needed, DIRECTED OPHTHALMIC IN OR, Starting on Tue10/13/22 at 1429, Inject into right eye. Given 10/13/2022 2:29 PM CDT 1.25 mg Right Eye documented in this encounter Care Teams Portfolio Architect Relationship Specialty Start Date End Date Elsewhere, Pcp PCP - General Family Medicine 02/17/17 documented as of this encounter
--- OUTSIDE RECORDS SUMMARY | 2023-04-20 07:21 | XMS_ITS | Encounter Summary ---
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 [address] [place] [address] [facility] Referral ID Status Reason Start Date Expiration Date Visits Re quested Visits Authorized [id number] Closed 06/10/2022 06/10/2023 3 3 Encounter Details Date Type Department Care Team (Latest Contact Info) Description 08/10/2022 2:00 PM CDT Ancillary Procedure Department of Ophthalmology in [place], [place] [address] [place] [phone] Madison Caicedo M.D. [address] [place] [address] Diabetes Mellitus Type 2 With [...] AM CDT Clinical Communication Virtual Review in [place], [place] 200 [place] [address] 05/26/2023 8:30 AM CDT Ancillary Procedure Department of Ophthalmology in [address] [address] Madison Caicedo M.D. [address] [place] [phone] 05/26/2023 9:00 AM CDT Ancillary Procedure Department of Ophthalmology in [address] [address] Madison Caicedo M.D. [address] [place] [phone] 05/26/2023 9:15 AM CDT Office Visit Department of Ophthalmology in [address] [address] Madison Caicedo M.D. [address] [place] [phone] 05/26/2023 1:20 PM CDT Appointment Outpatient Procedure Center in [address] [address] Madison Caicedo M.D. 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
--- OUTSIDE RECORDS SUMMARY | 2023-04-20 07:21 | XMS_ITS | Encounter Summary ---
Author Name Unknown Organization [facility] Address [address] [place] [address] Care Team Providers Care Framer Name Role Phone Elsewhere, Pcp Primary Care Provider Unavailabl e Encounter Details Date Type Department Care Team (Latest Contact Info) Description 10/13/2022 9:30 AM CDT Ancillary Procedure Department of Ophthalmology in [place], [place] [address] [place] [phone] Madison Caicedo M.D. [address] [place] [phone] Diabetes Mellitus Type 2 With Mild Nonproliferative [...] AM CDT Clinical Communication Virtual Review in [place], [place] 200 [place] [address] 05/26/2023 8:30 AM CDT Ancillary Procedure Department of Ophthalmology in [place], [place] [address] [place] [phone] Madison Caicedo M.D. [address] [place] [phone] 05/26/2023 9:00 AM CDT Ancillary Procedure Department of Ophthalmology in [place], [place] [address] [place] [phone] Madison Caicedo M.D. [address] [place] [phone] 05/26/2023 9:15 AM CDT Office Visit Department of Ophthalmology in [place], [place] [address] [place] [phone] Madison Caicedo M.D. [address] [place] [phone] 05/26/2023 1:20 PM CDT Appointment Outpatient Procedure Center in [place], [place] [address] [place] [phone] Madison Caicedo M.D. [address] [place] [phone] documented as of this encounter Procedures Procedure [...] (HCC) documented in this encounter Care Teams Framer Relationship Specialty Start Date End Date Elsewhere, Pcp PCP - General Family Medicine 02/17/17 documented as of this encounter
--- OUTSIDE RECORDS SUMMARY | 2023-04-20 07:21 | XMS_ITS | Encounter Summary ---
Author Name Unknown Organization [facility] Address [address] [place] [address] Care Team Providers Care Shopper Marketing Manager Name Role Phone Elsewhere, Pcp Primary Care Provider Unavailabl e Encounter Details Date Type Department Care Team (Latest Contact Info) Description 07/13/2022 2:36 PM CDT - 07/13/2022 11:59 PM CDT Hospital Encounter Outpatient Procedure Center in [place], [place] [address] [place] [address] Teodoro Pedroza M.D. [address] [place] [address] Discharge Disposition: Home or Self [...] AM CDT Clinical Communication Virtual Review in [place], [place] 200 [place] [address] 05/26/2023 8:30 AM CDT Ancillary Procedure Department of Ophthalmology in [address] [address] Madison Caicedo M.D. [address] [place] [phone] 05/26/2023 9:00 AM CDT Ancillary Procedure Department of Ophthalmology in [address] [address] Madison Caicedo M.D. [address] [place] [phone] 05/26/2023 9:15 AM CDT Office Visit Department of Ophthalmology in [place], [place] [address] [place] [phone] Madison Caicedo M.D. [address] [place] [phone] 05/26/2023 1:20 PM CDT Appointment Outpatient Procedure Center in [address] [address] Madison Caicedo M.D. [address] [place] [address] [place] [phone] documented as of this encounter Results * [...] Right Eye ??[facility]: 31533-916-27 Balanced salt solution irrigation to injected eye [...] return schedule given if requested. Lot # [id number] Exp. 08/26/22 Teodoro Pedroza M.D. OPHTH CLINIC PROCEDU RES documented in this encounter Visit Diagnoses Not on filedocumented in this encounter Care Teams Shopper Marketing Manager Relationship Specialty Start Date End Date Elsewhere, Pcp PCP - General Family Medicine 02/17/17 documented as of this encounter
--- OUTSIDE RECORDS SUMMARY | 2023-04-20 07:21 | XMS_ITS | Encounter Summary ---
Author Name Unknown Organization [facility] Address [address] [place] [address] Care Team Providers Care Communication Professor Name Role Phone Elsewhere, Pcp Primary Care Provider Unavailabl e Encounter Details Date Type Department Care Team (Latest Contact Info) Description 10/13/2022 12:39 PM CDT - 10/13/2022 11:59 PM CDT Hospital Encounter Outpatient Procedure Center in [place], [place] [address] [place] [address] Filemon Mendez M.D. [address] [place] [address] Discharge Disposition: Home or Self Care Social [...] AM CDT Clinical Communication Virtual Review in [place], [place] 200 [place] [address] 05/26/2023 8:30 AM CDT Ancillary Procedure Department of Ophthalmology in [address] [address] Madison Caicedo M.D. [address] [place] [phone] 05/26/2023 9:00 AM CDT Ancillary Procedure Department of Ophthalmology in [address] [address] Madison Caicedo M.D. [address] [place] [phone] 05/26/2023 9:15 AM CDT Office Visit Department of Ophthalmology in [address] [address] Madison Caicedo M.D. [address] [place] [phone] 05/26/2023 1:20 PM CDT Appointment Outpatient Procedure Center in [address] [address] Madison Caicedo M.D. [address] [place] [phone] documented as of this encounter Procedures Procedure [...] intravitreal, Site: Right Eye ??[facility]: 24288-692-91 Balanced salt solution irrigation to injected eye [...] and return schedule given if requested. Lot [id number] exp 11/19/2022 Filemon Mendez M.D. OPHTH CLINIC PROCED URES documented in this encounter Visit Diagnoses Not on filedocumented in this encounter Care Teams Communication Professor Relationship Specialty Start Date End Date Elsewhere, Pcp PCP - General Family Medicine 02/17/17 documented as of this encounter
--- OUTSIDE RECORDS SUMMARY | 2023-04-20 07:21 | XMS_ITS | Encounter Summary ---
Author Name Unknown Organization [facility] Address [address] [place] [address] Care Team Providers Care Stockfeed Miller Name Role Phone Elsewhere, Pcp Primary Care Provider Unavailabl e Encounter Details Date Type Department Care Team (Latest Contact Info) Description 08/04/2022 Orders Only Department of Ophthalmology in [place], [place] [address] [place] [address] Eliane Laura [address] [place] [phone] Diabetes Mellitus Due To Underlying Condition With [...] AM CDT Clinical Communication Virtual Review in [place], [place] 200 [place] [address] 05/26/2023 8:30 AM CDT Ancillary Procedure Department of Ophthalmology in [place], [place] [address] [place] [address] Madison Caicedo M.D. [address] [place] [phone] 05/26/2023 9:00 AM CDT Ancillary Procedure Department of Ophthalmology in [place], [place] [address] [place] [address] Madison Caicedo M.D. [address] [place] [phone] 05/26/2023 9:15 AM CDT Office Visit Department of Ophthalmology in [place], [place] [address] [place] [address] Madison Caicedo M.D. [address] [place] [phone] 05/26/2023 1:20 PM CDT Appointment Outpatient Procedure Center in [place], [place] [address] [place] [phone] Madison Caicedo M.D. 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
--- OUTSIDE RECORDS SUMMARY | 2023-04-20 07:21 | XMS_ITS | Encounter Summary ---
Author Name Unknown Organization [facility] Address [address] [place] [address] Care Team Providers Care Brazing Machine Setter Name Role Phone Elsewhere, Pcp Primary Care Provider Unavailabl e Encounter Details Date Type Department Care Team (Latest Contact Info) Description 09/01/2022 Orders Only Department of Ophthalmology in [place], [place] [address] [place] [phone] Carolyn Farah, C.O.A. Diabetes Mellitus Due To [...] AM CDT Clinical Communication Virtual Review in [place], [place] [address] [place] [address] 05/26/2023 8:30 AM CDT Ancillary Procedure Department of Ophthalmology in [place], [place] [address] [place] [phone] Madison Caicedo M.D. [address] [place] [phone] 05/26/2023 9:00 AM CDT Ancillary Procedure Department of Ophthalmology in [place], [place] [address] [place] [phone] Madison Caicedo M.D. [address] [place] [phone] 05/26/2023 9:15 AM CDT Office Visit Department of Ophthalmology in [place], [place] [address] [place] [phone] Madison Caicedo M.D. [address] [place] [phone] 05/26/2023 1:20 PM CDT Appointment Outpatient Procedure Center in [place], [place] [address] [place] [phone] Madison Caicedo M.D. 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
--- OUTSIDE RECORDS SUMMARY | 2023-04-20 07:21 | XMS_ITS | Encounter Summary ---
Author Name Unknown Organization [facility] Address [address] [place] [address] Care Team Providers Care Trouble Lineman Name Role Phone Elsewhere, Pcp Primary Care Provider Unavailabl e Encounter Details Date Type Department Care Team (Latest Contact Info) Description 08/10/2022 2:13 PM CDT - 08/10/2022 11:59 PM CDT Hospital Encounter Outpatient Procedure Center in [place], [place] [address] [place] [address] Filemon Mendez M.D. [address] [place] [address] Discharge Disposition: Home or Self Care Social [...] AM CDT Clinical Communication Virtual Review in [place], [place] 200 [place] [address] 05/26/2023 8:30 AM CDT Ancillary Procedure Department of Ophthalmology in [address] [address] Madison Caicedo M.D. [address] [place] [phone] 05/26/2023 9:00 AM CDT Ancillary Procedure Department of Ophthalmology in [address] [address] Madison Caicedo M.D. [address] [place] [phone] 05/26/2023 9:15 AM CDT Office Visit Department of Ophthalmology in [address] [address] Madison Caicedo M.D. [address] [place] [phone] 05/26/2023 1:20 PM CDT Appointment Outpatient Procedure Center in [address] [address] Madison Caicedo M.D. [address] [place] [phone] documented as of this encounter Procedures Procedure [...] 25 mg/mL ??Route: intravitreal, Site: Right Eye ??[facility]: 91810-183-56 Balanced salt solution irrigation to injected eye [...] and return schedule given if requested. Lot [id number] exp 09/21/2022 Filemon Mendez M.D. OPHTH CLINIC PROCED URES documented in this encounter Visit Diagnoses Not on filedocumented in this encounter Care Teams Trouble Lineman Relationship Specialty Start Date End Date Elsewhere, Pcp PCP - General Family Medicine 02/17/17 documented as of this encounter
--- OUTSIDE RECORDS SUMMARY | 2023-04-20 07:21 | XMS_ITS | Encounter Summary ---
Author Name Unknown Organization [facility] Address [address] [place] [address] Care Team Providers Care Installer Molding And Trim Name Role Phone Elsewhere, Pcp Primary Care Provider Unavailabl e Encounter Details Date Type Department Care Team (Latest Contact Info) Description 07/13/2022 2:36 PM CDT - 07/13/2022 11:59 PM CDT Hospital Encounter Outpatient Procedure Center in [place], [place] [address] [place] [address] Teodoro Pedroza M.D. [address] [place] [address] Discharge Disposition: Home or Self [...] AM CDT Clinical Communication Virtual Review in [place], [place] 200 [place] [address] 05/26/2023 8:30 AM CDT Ancillary Procedure Department of Ophthalmology in [address] [address] Madison Caicedo M.D. [address] [place] [phone] 05/26/2023 9:00 AM CDT Ancillary Procedure Department of Ophthalmology in [address] [address] Madison Caicedo M.D. [address] [place] [phone] 05/26/2023 9:15 AM CDT Office Visit Department of Ophthalmology in [place], [place] [address] [place] [phone] Madison Caicedo M.D. [address] [place] [phone] 05/26/2023 1:20 PM CDT Appointment Outpatient Procedure Center in [address] [address] Madison Caicedo M.D. [address] [place] [address] [place] [address] documented as of this encounter Procedures Procedure [...] Site: Right Eye ??[facility]: 33322-114-77 Balanced salt solution irrigation to injected eye [...] return schedule given if requested. Lot # [id number] Exp. 08/26/22 Teodoro Pedroza M.D. OPHTH CLINIC PROCEDU RES documented in this encounter Visit Diagnoses Not on filedocumented in this encounter Care Teams Installer Molding And Trim Relationship Specialty Start Date End Date Elsewhere, Pcp PCP - General Family Medicine 02/17/17 documented as of this encounter
--- OUTSIDE RECORDS SUMMARY | 2023-04-20 07:21 | XMS_ITS | Encounter Summary ---
Author Name Unknown Organization [facility] Address [address] [place] [address] Care Team Providers Care Styrene Dehydration Reactor Operator Name Role Phone Elsewhere, Pcp Primary Care Provider Unavailabl e Reason for Visit * Reason Onset Date Comments Pre-visit Intake 10/08/2022 Encounter Details Date Type Department Care Team (Latest Contact Info) Description 10/08/2022 10:45 AM CDT Clinical Communication Virtual Review in [place], [place] 200 [place] [address] Pre-visit Intake Social History Tobacco Use Types [...] AM CDT Clinical Communication Virtual Review in [place], [place] 200 [place], [place] [address] 05/26/2023 8:30 AM CDT Ancillary Procedure Department of Ophthalmology in [place], [place] [address] [place] [phone] Madison Caicedo M.D. [address] [place] [phone] 05/26/2023 9:00 AM CDT Ancillary Procedure Department of Ophthalmology in [place], [place] [address] [place] [phone] Madison Caicedo M.D. [address] [place] [phone] 05/26/2023 9:15 AM CDT Office Visit Department of Ophthalmology in [place], [place] [address] [place] [address] Madison Caicedo M.D. [address] [place] [phone] 05/26/2023 1:20 PM CDT Appointment Outpatient Procedure Center in [place], [place] [address] [place] [phone] Madison Caicedo M.D. [address] [place] [phone] documented as of this encounter Visit Diagnoses Not on filedocumented in this encounter Care Teams Styrene Dehydration Reactor Operator Relationship Specialty Start Date End Date Elsewhere, Pcp PCP - General Family Medicine 02/17/17 documented as of this encounter
--- OUTSIDE RECORDS SUMMARY | 2023-04-20 07:21 | XMS_ITS | Encounter Summary ---
Author Name Unknown Organization [facility] Address [address] [place] [address] Care Team Providers Care Home Care Attendant Name Role Phone Elsewhere, Pcp Primary Care Provider Unavailabl e Encounter Details Date Type Department Care Team (Latest Contact Info) Description 09/07/2022 2:41 PM CDT - 09/07/2022 11:59 PM CDT Hospital Encounter Outpatient Procedure Center in [place], [place] [address] [place] [address] Filemon Mednez M.D. [address] [place] [address] Discharge Disposition: Home or Self Care Social [...] AM CDT Clinical Communication Virtual Review in [place], [place] 200 [place] [address] 05/26/2023 8:30 AM CDT Ancillary Procedure Department of Ophthalmology in [address] [address] Madison Caicedo M.D. [address] [place] [phone] 05/26/2023 9:00 AM CDT Ancillary Procedure Department of Ophthalmology in [address] [address] Madison Caicedo M.D. [address] [place] [phone] 05/26/2023 9:15 AM CDT Office Visit Department of Ophthalmology in [address] [address] Madison Caicedo M.D. [address] [place] [phone] 05/26/2023 1:20 PM CDT Appointment Outpatient Procedure Center in [address] [address] Madison Caicedo M.D. [address] [place] [phone] documented as of this encounter Procedures Procedure [...] mg/mL ??Route: intravitreal, Site: Right Eye ??[facility]: 26400-606-24 Balanced salt solution irrigation to injected eye [...] schedule given if requested. Right eye LOT: [id number] EXP: 09/29/22 Filemon Mendez M.D. OPHTH CLINIC PROCED URES documented in this encounter Visit Diagnoses Not on filedocumented in this encounter Care Teams Home Care Attendant Relationship Specialty Start Date End Date Elsewhere, Pcp PCP - General Family Medicine 02/17/17 documented as of this encounter
--- OUTSIDE RECORDS SUMMARY | 2023-04-20 07:21 | XMS_ITS | Encounter Summary ---
Author Name Unknown Organization [facility] Address [address] [place] [address] Care Team Providers Care Brick Offbearer Name Role Phone Elsewhere, Pcp Primary Care [...] INJECTION INTRAVITREAL Madison Caicedo M.D. 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 [address] [place] [address] [facility] Referral ID Status Reason Start Date Expiration Date Visits Re quested Visits Authorized [id number] Closed 06/10/2022 06/10/2023 4 4 Encounter Details Date Type Department Care Team (Latest Contact Info) Description 08/10/2022 1:55 PM CDT - 08/10/2022 2:12 PM CDT Hospital Encounter Outpatient Procedure Center in [place], [place] [address] [place] [address] Madison Caicedo M.D. [address] [place] [address] Diabetes Mellitus Type 2 With Mild Nonproliferative [...] AM CDT Clinical Communication Virtual Review in [place], [place] 200 [place] [address] 05/26/2023 8:30 AM CDT Ancillary Procedure Department of Ophthalmology in [place], [place] [address] [place] [phone] Madison Caicedo M.D. [address] [place] [phone] 05/26/2023 9:00 AM CDT Ancillary Procedure Department of Ophthalmology in [address] [address] Madison Caicedo M.D. [address] [place] [phone] 05/26/2023 9:15 AM CDT Office Visit Department of Ophthalmology in [address] [address] Madison Caicedo M.D. [address] [place] [phone] 05/26/2023 1:20 PM CDT Appointment Outpatient Procedure Center in [address] [address] Madison Caicedo M.D. [address] [place] [phone] documented as of this encounter Procedures Procedure [...] intravitreal, Site: Right Eye ??[facility]: 68278-675-46 Balanced salt solution irrigation to injected eye [...] and return schedule given if requested. Lot [id number] exp 09/21/2022 Filemon Mendez M.D. OPHTH CLINIC [...] For 365 days Given 04/18/2023 12:58 PM [facility] ROOM 30 mL Given 03/15/2023 1:47 PM [facility] ROOM 30 mL Given 02/15/2023 2:30 PM DEALER [facility] ROOM 30 mL carboxymethylcellulose 1 % ophthalmic solution 1 drop (THERATEARS) 1 drop, right eye, As needed, dry eyes, DIRECTED OPHTHALMIC IN OR, Starting on Tue06/10/22 at 0918, For 365 days Given 04/18/2023 12:58 PM DEAL[facility] ROOM 1 drop Given 03/15/2023 1:48 PM DEALER CARD ROOM 1 drop Given 02/15/2023 2:30 PM DEALER CARD ROOM 1 drop povidone-iodine 5 % ophthalmic solution 1 drop (BETADINE) 1 drop, right eye, As needed, irrigation, DIRECTED OPHTHALMIC IN OR, Starting on Tue06/10/22 at 0918, For 365 days, Irrigate ocular and periocular region and leave for 2 mins; then flush with sterile saline solution. Given 04/18/2023 12:58 PM DEAL[facility]ARD ROOM 1 drop Given 03/15/2023 1:48 PM DEALER CARD ROOM 1 drop Given 02/15/2023 2:30 PM DEALER CARD ROOM 1 drop proparacaine 0.5 % ophthalmic solution 1 drop (ALCAINE) 1 drop, right eye, As needed, DIRECTED OPHTHALMIC IN OR, Starting on Tue06/10/22 at 0918, For 365 days Given 04/18/2023 12:58 PM DEAL[facility] ROOM 1 drop Given 03/15/2023 1:48 PM DEALER CARD ROOM 1 drop Given 02/15/2023 2:30 PM DEALER CARD ROOM 1 drop tetracaine (PF) 0.5 % ophthalmic solution 1 drop (ALTACAINE) 1 drop, right eye, As needed, DIRECTED OPHTHALMIC IN OR, Starting on Tue06/10/22 at 0918, For 365 days Given 04/18/2023 12:58 PM DEALER CARD ROOM 1 drop Given 03/15/2023 1:47 PM DEALER CARD ROOM 1 drop Given 02/15/2023 2:30 PM DEALER CARD ROOM 1 drop Inactive Administered Medications - up to 3 most recent administrations Medication Order MAR Action Action Date Dose Rate Site bevacizumab intraocular injection 1.25 mg (AVASTIN) 1.25 mg, intravitreal, As needed, DIRECTED OPHTHALMIC IN OR, Starting on Tue08/10/22 at 1514, Inject into right eye. Given 08/10/2022 3:14 PM CDT 1.25 mg Right Eye documented in this encounter Care Teams Brick Offbearer Relationship Specialty Start Date End Date Elsewhere, Pcp PCP - General Family Medicine 02/17/17 documented as of this encounter
--- OUTSIDE RECORDS SUMMARY | 2023-04-20 07:21 | XMS_ITS | Encounter Summary ---
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 [address] [place] [address] [facility] Referral ID Status Reason Start Date Expiration Date Visits Re quested Visits Authorized [id number] Closed 06/10/2022 06/10/2023 4 4 Encounter Details Date Type Department Care Team (Latest Contact Info) Description 09/07/2022 2:06 PM CDT - 09/07/2022 2:40 PM CDT Hospital Encounter Outpatient Procedure Center in [place], [place] [address] [place] [address] Madison Caicedo M.D. [address] [place] [address] Diabetes Mellitus Type 2 With Mild Nonproliferative [...] AM CDT Clinical Communication Virtual Review in [place], [place] 200 [place] [address] 05/26/2023 8:30 AM CDT Ancillary Procedure Department of Ophthalmology in [address] [address] Madison Caicedo M.D. [address] [place] [phone] 05/26/2023 9:00 AM CDT Ancillary Procedure Department of Ophthalmology in [address] [address] Madison Caicedo M.D. [address] [place] [phone] 05/26/2023 9:15 AM CDT Office Visit Department of Ophthalmology in [address] [address] Madison Caicedo M.D. [address] [place] [phone] 05/26/2023 1:20 PM CDT Appointment Outpatient Procedure Center in [address] [address] Madison Caicedo M.D. [address] [place] [phone] documented as of this encounter Procedures Procedure [...] Right Eye (09/07/2022 2:41 PM CDT) Narrative Fliemon Mendez M.D. - 09/07/2022 3:02 PM CDT [...] Site: Right Eye ??[facility]: 97225-913-87 Balanced salt solution irrigation to injected eye [...] schedule given if requested. Right eye LOT: [id number] EXP: 09/29/22 Filemon Mendez M.D. OPHTH CLINIC [...] For 365 days Given 04/18/2023 12:58 PM AUTOMOTIVE COLLISION ESTIMATOR 30 mL Given 03/15/2023 1:47 PM AUTOMOTIVE COLLISION ESTIMATOR 30 mL Given 02/15/2023 2:30 PM AUTOMOTIVE COLLISION ESTIMATOR 30 mL carboxymethylcellulose 1 % ophthalmic solution 1 drop (THERATEARS) 1 drop, right eye, As needed, dry eyes, DIRECTED OPHTHALMIC IN OR, Starting on Tue06/10/22 at 0918, For 365 days Given 04/18/2023 12:58 PM AUTOMOTIVE COLLISION ESTIMATOR 1 drop Given 03/15/2023 1:48 PM AUTOMOTIVE COLLISION ESTIMATOR 1 drop Given 02/15/2023 2:30 PM AUTOMOTIVE COLLISION ESTIMATOR 1 drop povidone-iodine 5 % ophthalmic solution 1 drop (BETADINE) 1 drop, right eye, As needed, irrigation, DIRECTED OPHTHALMIC IN OR, Starting on Tue06/10/22 at 0918, For 365 days, Irrigate ocular and periocular region and leave for 2 mins; then flush with sterile saline solution. Given 04/18/2023 12:58 PM AUTOMOTIVE COLLISION ESTIMATOR 1 drop Given 03/15/2023 1:48 PM AUTOMOTIVE COLLISION ESTIMATOR 1 drop Given 02/15/2023 2:30 PM AUTOMOTIVE COLLISION ESTIMATOR 1 drop proparacaine 0.5 % ophthalmic solution 1 drop (ALCAINE) 1 drop, right eye, As needed, DIRECTED OPHTHALMIC IN OR, Starting on Tue06/10/22 at 0918, For 365 days Given 04/18/2023 12:58 PM AUTOMOTIVE COLLISION ESTIMATOR 1 drop Given 03/15/2023 1:48 PM AUTOMOTIVE COLLISION ESTIMATOR 1 drop Given 02/15/2023 2:30 PM AUTOMOTIVE COLLISION ESTIMATOR 1 drop tetracaine (PF) 0.5 % ophthalmic solution 1 drop (ALTACAINE) 1 drop, right eye, As needed, DIRECTED OPHTHALMIC IN OR, Starting on Tue06/10/22 at 0918, For 365 days Given 04/18/2023 12:58 PM AUTOMOTIVE COLLISION ESTIMATOR 1 drop Given 03/15/2023 1:47 PM AUTOMOTIVE COLLISION ESTIMATOR 1 drop Given 02/15/2023 2:30 PM AUTOMOTIVE COLLISION ESTIMATOR 1 drop Inactive Administered Medications - up to 3 most recent administrations Medication Order MAR Action Action Date Dose Rate Site bevacizumab intraocular injection 1.25 mg (AVASTIN) 1.25 mg, intravitreal, As needed, DIRECTED OPHTHALMIC IN OR, Starting on Tue09/07/22 at 1502, Inject into right eye. Given 09/07/2022 3:02 PM CDT 1.25 mg Right Eye documented in this encounter Care Teams Coding Assistant Relationship Specialty Start Date End Date Elsewhere, Pcp PCP - General Family Medicine 02/17/17 documented as of this encounter
--- OUTSIDE RECORDS SUMMARY | 2023-04-20 07:21 | XMS_ITS | Encounter Summary ---
Author Name Unknown Organization [facility] Address [address] [place] [address] Care Team Providers Care Evaluation Advisor Name Role Phone Elsewhere, Pcp Primary [...] CDT Clinical Communication Virtual Review in [place], [place] 200 [place], [place] [phone] 05/26/2023 8:30 AM CDT Ancillary Procedure Department of Ophthalmology in [place], [place] [address] [place] [phone] Madison Caicedo M.D. [address] [place] [phone] 05/26/2023 9:00 AM CDT Ancillary Procedure Department of Ophthalmology in [place], [place] [address] [place] [address] Madison Caicedo M.D. [address] [place] [phone] 05/26/2023 9:15 AM CDT Office Visit Department of Ophthalmology in [place], [place] [address] [place] [phone] Madison Caicedo M.D. [address] [place] [phone] 05/26/2023 1:20 PM CDT Appointment Outpatient Procedure Center in [place], [place] [address] [place] [phone] Madison Caicedo M.D. [address] [place] [phone] documented as of this encounter Procedures Procedure [...] on filedocumented in this encounter Care Teams Evaluation Advisor Relationship Specialty Start Date End Date Elsewhere, Pcp PCP - General Family Medicine 02/17/17 documented as of this encounter
--- OUTSIDE RECORDS SUMMARY | 2023-04-20 07:22 | XMS_ITS | Encounter Summary ---
Author Name Unknown Organization [facility] Address [address] [place] [address] Care Team Providers Care Land Acquisition Manager Name Role Phone Elsewhere, Pcp Primary Care Provider Unavailabl e Encounter Details Date Type Department Care Team (Latest Contact Info) Description 06/10/2022 Orders Only Department of Ophthalmology in [place], [place] [address] [place] [phone] Tamar Younger C.OKeeA. [address] [place] [phone] Diabetes Mellitus Due To Underlying Condition With [...] AM CDT Clinical Communication Virtual Review in [place], [place] [address] [place] [address] 05/26/2023 8:30 AM CDT Ancillary Procedure Department of Ophthalmology in [place], [place] [address] [place] [phone] Madison Caicedo M.D. [address] [place] [phone] 05/26/2023 9:00 AM CDT Ancillary Procedure Department of Ophthalmology in [place], [place] [address] [place] [phone] Madison Caicedo M.D. [address] [place] [phone] 05/26/2023 9:15 AM CDT Office Visit Department of Ophthalmology in [place], [place] [address] [place] [phone] Madison Caicedo M.D. [address] [place] [phone] 05/26/2023 1:20 PM CDT Appointment Outpatient Procedure Center in [place], [place] [address] [place] [phone] Madison Caicedo M.D. 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
--- OUTSIDE RECORDS SUMMARY | 2023-04-20 07:22 | XMS_ITS | Encounter Summary ---
Author Name Unknown Organization 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 [address] [place] [address] Rst Oph Shaila [address] [place] [phone] Referral ID Status Reason Start Date Expiration Date Visits Re quested Visits Authorized [id number] Closed 06/08/2022 06/08/2023 1 1 Encounter Details Date Type Department Care Team (Latest Contact Info) Description 06/08/2022 10:15 AM CDT Procedure visit Department of Ophthalmology in [place], [place] [address] [place] [address] Madison Jade M.D. [address] [place] [address] Vijay Mejia Diabetes Mellitus Type [...] AM CDT Clinical Communication Virtual Review in [address] [address] 05/26/2023 8:30 AM CDT Ancillary Procedure Department of Ophthalmology in [address] [address] Madison Jade M.D. [address] [place] [phone] 05/26/2023 9:00 AM CDT Ancillary Procedure Department of Ophthalmology in [address] [address] Madison Jade M.D. [address] [place] [phone] 05/26/2023 9:15 AM CDT Office Visit Department of Ophthalmology in [address] [address] Madison Jade M.D. [address] [place] [address] 05/26/2023 1:20 PM CDT Appointment Outpatient Procedure Center in [place], [place] [address] [place] [address] Madison Jade M.D. [address] [place] [address] documented as of this encounter Procedures Procedure [...] mg documented in this encounter Care Teams Supervisor Component Assembler Relationship Specialty Start Date End Date Elsewhere, Pcp PCP - General Family Medicine 02/17/17 documented as of this encounter
--- OUTSIDE RECORDS SUMMARY | 2023-04-20 07:22 | XMS_ITS | Encounter Summary ---
Author Name Unknown Organization [facility] Address [address] [place] [address] Care Team Providers Care Tag Machine Operator Name Role Phone Elsewhere, Pcp Primary Care Provider Unavailabl e Encounter Details Date Type Department Care Team (Latest Contact Info) Description 06/10/2022 3:58 PM CDT - 06/10/2022 11:59 PM CDT Hospital Encounter Outpatient Procedure Center in [place], [place] [address] [place] [address] Teodoro Pedroza M.D. [address] [place] [address] Discharge Disposition: Home or Self [...] AM CDT Clinical Communication Virtual Review in [place], [place] 200 [place] [address] 05/26/2023 8:30 AM CDT Ancillary Procedure Department of Ophthalmology in [address] [address] Madison Caicedo M.D. [address] [place] [phone] 05/26/2023 9:00 AM CDT Ancillary Procedure Department of Ophthalmology in [address] [address] Madison Caicedo M.D. [address] [place] [phone] 05/26/2023 9:15 AM CDT Office Visit Department of Ophthalmology in [place], [place] [address] [place] [phone] Madison Caicedo M.D. [address] [place] [phone] 05/26/2023 1:20 PM CDT Appointment Outpatient Procedure Center in [address] [address] Madison Caicedo M.D. [address] [place] [address] [place] [address] documented as of this encounter Results * [...] 25 mg/mL ??Route: intravitreal, Site: Right Eye ??[facility]: 06[address]-327-18 Balanced salt solution irrigation to injected eye [...] and return schedule given if requested. LOT: [id number] EXP: 07/15/2022 Teodoro Pedroza M.D. OPHTH CLINIC PROCEDU RES documented in this encounter Visit Diagnoses Not on filedocumented in this encounter Care Teams Tag Machine Operator Relationship Specialty Start Date End Date Elsewhere, Pcp PCP - General Family Medicine 02/17/17 documented as of this encounter
--- OUTSIDE RECORDS SUMMARY | 2023-04-20 07:22 | XMS_ITS | Encounter Summary ---
Author Name Unknown Organization [facility] Address [address] [place] [address] Care Team Providers Care Medical Technologist Generalist Name Role Phone Elsewhere, Pcp Primary Care Provider Unavailabl e Reason for Visit * Outpatient (Routine) - Authorized Specialty Diagnoses / Procedures Referred By Contac t Referred To Contact Ophthalmology Diagnoses . Procedures OPH TEST VISUAL ACUITY CHECK [facility] Rst Oph [place] [address] [place] [address] Referral ID Status Reason Start Date Expiration Date V isits Requested Visits Authorized [id number] Authorized 06/08/2022 06/08/2023 4 4 Encounter Details Date Type Department Care Team (Latest Contact Info) Description 06/08/2022 9:30 AM CDT Ancillary Procedure Department of Ophthalmology in [place], [place] [address] [place] [phone] Madison Caicedo M.D. [address] [place] [phone] Diabetes Mellitus Type 2 With Mild Nonproliferative [...] AM CDT Clinical Communication Virtual Review in [place], [place] 200 [place] [address] 05/26/2023 8:30 AM CDT Ancillary Procedure Department of Ophthalmology in [place], [place] [address] [place] [phone] Madison Caicedo M.D. [address] [place] [phone] 05/26/2023 9:00 AM CDT Ancillary Procedure Department of Ophthalmology in [address] [phone] Madison Caicedo M.D. [address] [place] [phone] 05/26/2023 9:15 AM CDT Office Visit Department of Ophthalmology in [address] [phone] Madison Caicedo M.D. [address] [place] [phone] 05/26/2023 1:20 PM CDT Appointment Outpatient Procedure Center in [address] [address] Madison Caicedo M.D. [address] [place] [phone] documented as of this encounter Procedures Procedure [...] (HCC) documented in this encounter Care Teams Medical Technologist Generalist Relationship Specialty Start Date End Date Elsewhere, Pcp PCP - General Family Medicine 02/17/17 documented as of this encounter
--- OUTSIDE RECORDS SUMMARY | 2023-04-20 07:22 | XMS_ITS | Encounter Summary ---
Author Name Unknown Organization [facility] Address [address] [place] [address] Care Team Providers Care Talent Acquisition Coordinator Name Role Phone Elsewhere, Pcp Primary Care Provider Unavailabl e Encounter Details Date Type Department Care Team (Latest Contact Info) Description 05/28/2022 Clinical Communication Department of Ophthalmology in [place], [place] [address] [place] [phone] Madison Caicedo M.D. [address] [place] [phone] Social History Tobacco Use Types Packs/Day Years [...] AM CDT Clinical Communication Virtual Review in [place], [place] [address] [place] [address] 05/26/2023 8:30 AM CDT Ancillary Procedure Department of Ophthalmology in [place], [place] [address] [place] [phone] Madison Caicedo M.D. [address] [place] [phone] 05/26/2023 9:00 AM CDT Ancillary Procedure Department of Ophthalmology in [place], [place] [address] [place] [phone] Madison Caicedo M.D. [address] [place] [phone] 05/26/2023 9:15 AM CDT Office Visit Department of Ophthalmology in [place], [place] [address] [place] [phone] Madison Caicedo M.D. [address] [place] [phone] 05/26/2023 1:20 PM CDT Appointment Outpatient Procedure Center in [place], [place] [address] [place] [phone] Madison Caicedo M.D. [address] [place] [phone] documented as of this encounter Visit Diagnoses Not on filedocumented in this encounter Care Teams Talent Acquisition Coordinator Relationship Specialty Start Date End Date Elsewhere, Pcp PCP - General Family Medicine 02/17/17 documented as of this encounter
--- OUTSIDE RECORDS SUMMARY | 2023-04-20 07:22 | XMS_ITS | Encounter Summary ---
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 [address] [place] [address] [facility] Referral ID Status Reason Start Date Expiration Date Visits Re quested Visits Authorized [id number] Closed 06/10/2022 06/10/2023 3 3 Encounter Details Date Type Department Care Team (Latest Contact Info) Description 07/13/2022 2:20 PM CDT Ancillary Procedure Department of Ophthalmology in [place], [place] [address] [place] [phone] Madison Caicedo M.D. [address] [place] [address] Diabetes Mellitus Type 2 With [...] AM CDT Clinical Communication Virtual Review in [place], [place] 200 [place] [address] 05/26/2023 8:30 AM CDT Ancillary Procedure Department of Ophthalmology in [address] [address] Madsion Caicedo M.D. [address] [place] [phone] 05/26/2023 9:00 AM CDT Ancillary Procedure Department of Ophthalmology in [address] [address] Madison Caicedo M.D. [address] [place] [phone] 05/26/2023 9:15 AM CDT Office Visit Department of Ophthalmology in [address] [address] Madison Caicedo M.D. [address] [place] [phone] 05/26/2023 1:20 PM CDT Appointment Outpatient Procedure Center in [address] [address] Madison Caicedo M.D. 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
--- OUTSIDE RECORDS SUMMARY | 2023-04-20 07:22 | XMS_ITS | Encounter Summary ---
Author Name Unknown Organization [facility] Address [address] [place] [address] Care Team Providers Care Poured Concrete Wall Technician Name Role Phone Elsewhere, Pcp Primary Care Provider Unavailabl e Encounter Details Date Type Department Care Team (Latest Contact Info) Description 06/03/2022 Clinical Communication Department of Ophthalmology in [place], [place] [address] [place] [phone] Madison Caicedo M.D. [address] [place] [phone] Social History Tobacco Use Types Packs/Day Years [...] AM CDT Clinical Communication Virtual Review in [place], [place] [address] [place] [address] 05/26/2023 8:30 AM CDT Ancillary Procedure Department of Ophthalmology in [place], [place] [address] [place] [phone] Madison Caicedo M.D. [address] [place] [phone] 05/26/2023 9:00 AM CDT Ancillary Procedure Department of Ophthalmology in [place], [place] [address] [place] [phone] Madison Caicedo M.D. [address] [place] [phone] 05/26/2023 9:15 AM CDT Office Visit Department of Ophthalmology in [place], [place] [address] [place] [phone] Madison Caicedo M.D. [address] [place] [phone] 05/26/2023 1:20 PM CDT Appointment Outpatient Procedure Center in [place], [place] [address] [place] [phone] Madison Caicedo M.D. [address] [place] [phone] documented as of this encounter Visit Diagnoses Not on filedocumented in this encounter Care Teams Poured Concrete Wall Technician Relationship Specialty Start Date End Date Elsewhere, Pcp PCP - General Family Medicine 02/17/17 documented as of this encounter
--- OUTSIDE RECORDS SUMMARY | 2023-04-20 07:22 | XMS_ITS | Encounter Summary ---
Author Name Unknown Organization [facility] Address [address] [place] [address] Care Team Providers Care Sheep Farmer Name Role Phone Elsewhere, Pcp Primary Care Provider Unavailabl e Encounter Details Date Type Department Care Team (Latest Contact Info) Description 07/07/2022 Orders Only Department of Ophthalmology in [place], [place] [address] [place] [address] Eliane Laura [address] [place] [address] Diabetes Mellitus Due To Underlying Condition With [...] AM CDT Clinical Communication Virtual Review in [place], [place] [address] [place] [address] 05/26/2023 8:30 AM CDT Ancillary Procedure Department of Ophthalmology in [place], [place] [address] [place] [address] Madison Caicedo M.D. [address] [place] [phone] 05/26/2023 9:00 AM CDT Ancillary Procedure Department of Ophthalmology in [place], [place] [address] [place] [address] Madison Caicedo M.D. [address] [place] [phone] 05/26/2023 9:15 AM CDT Office Visit Department of Ophthalmology in [place], [place] [address] [place] [address] Madison Caicedo M.D. [address] [place] [phone] 05/26/2023 1:20 PM CDT Appointment Outpatient Procedure Center in [place], [place] [address] [place] [phone] Madison Caicedo M.D. 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
--- OUTSIDE RECORDS SUMMARY | 2023-04-20 07:22 | XMS_ITS | Encounter Summary ---
Author Name Unknown Organization [facility] Address [address] [place] [address] Care Team Providers Care Sewing Inspector Name Role Phone Elsewhere, Pcp Primary Care Provider Unavailabl e Reason for Referral * Outpatient (Routine) - Closed Specialty Diagnoses / Procedures Referred By Araceli garza Referred To Contact Ophthalmology Madison Caicedo M.D. [address] [place] [address] [facility] Referral ID Status Reason Start Date Expiration Date Visits Re quested Visits Authorized [id number] Closed 06/10/2022 06/09/2025 1 1 Scheduling Instructions Plan: 06/10/2022 ?? RIGHT EYE: Avastin right eye for Diabetic Macular Edema Follow up for 3 more Avastin in the right eye every 4-5 weeks. ?? 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 [address] [place] [address] 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 [address] [place] [phone] [facility] Referral ID Status Reason Start Date Expiration Date Visits Re quested Visits Authorized [id number] Closed 06/10/2022 06/10/2023 3 3 Encounter Details Date Type Department Care Team (Latest Contact Info) Description 06/10/2022 Orders Only Department of Ophthalmology in [place], [place] [address] [place] [phone] Tamar Younger C.O.A. [address] [place] [phone] Diabetes Mellitus Type 2 With Mild Nonproliferative [...] AM CDT Clinical Communication Virtual Review in [place], [place] 200 [place] [address] 05/26/2023 8:30 AM CDT Ancillary Procedure Department of Ophthalmology in [place], [place] [address] [place] [phone] Madison Caicedo M.D. [address] [place] [phone] 05/26/2023 9:00 AM CDT Ancillary Procedure Department of Ophthalmology in [place], [place] [address] [place] [phone] Madison Caicedo M.D. [address] [place] [phone] 05/26/2023 9:15 AM CDT Office Visit Department of Ophthalmology in [place], [place] [address] [place] [phone] Madison Caicedo M.D. [address] [place] [phone] 05/26/2023 1:20 PM CDT Appointment Outpatient Procedure Center in [place], [place] [address] [place] [phone] Madison Caicedo M.D. [address] [place] [phone] Scheduled Orders Name Type Priority Associated Diagnoses [...] (HCC) documented in this encounter Care Teams Sewing Inspector Relationship Specialty Start Date End Date Elsewhere, Pcp PCP - General Family Medicine 02/17/17 documented as of this encounter
--- OUTSIDE RECORDS SUMMARY | 2023-04-20 07:22 | XMS_ITS | Encounter Summary ---
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 [address] [place] [address] [facility] Referral ID Status Reason Start Date Expiration Date Visits Re quested Visits Authorized [id number] Closed 06/02/2022 06/02/2023 1 1 Encounter Details Date Type Department Care Team (Latest Contact Info) Description 06/10/2022 3:12 PM CDT - 06/10/2022 3:57 PM CDT Hospital Encounter Outpatient Procedure Center in [place], [place] [address] [place] [address] Madison Caicedo M.D. [address] [place] [address] Diabetes Mellitus Type 2 With Mild Nonproliferative [...] AM CDT Clinical Communication Virtual Review in [place], [place] 200 [place] [address] 05/26/2023 8:30 AM CDT Ancillary Procedure Department of Ophthalmology in [place], [place] [address] [place] [phone] Madison Caicedo M.D. [address] [place] [phone] 05/26/2023 9:00 AM CDT Ancillary Procedure Department of Ophthalmology in [address] [address] Madison Caicedo M.D. [address] [place] [phone] 05/26/2023 9:15 AM CDT Office Visit Department of Ophthalmology in [address] [address] Madison Caicedo M.D. [address] [place] [phone] 05/26/2023 1:20 PM CDT Appointment Outpatient Procedure Center in [address] [address] Madison Caicedo M.D. [address] [place] [phone] documented as of this encounter Procedures Procedure [...] 25 mg/mL ??Route: intravitreal, Site: Right Eye ??[facility]: 518[address]-976-48 Balanced salt solution irrigation to injected eye [...] and return schedule given if requested. LOT: [id number] EXP: 07/15/2022 Teodoro Pedroza M.D. OPHTH CLINIC [...] For 365 days Given 04/18/2023 12:58 PM CORRECTIONAL OFFICER CAPTAIN 30 mL Given 03/15/2023 1:47 PM CORRECTIONAL OFFICER CAPTAIN 30 mL Given 02/15/2023 2:30 PM CORRECTIONAL OFFICER CAPTAIN 30 mL carboxymethylcellulose 1 % ophthalmic solution 1 drop (THERATEARS) 1 drop, right eye, As needed, dry eyes, DIRECTED OPHTHALMIC IN OR, Starting on 06/10/22 at 0918, For 365 days Given 04/18/2023 12:58 PM CORRECTIONAL OFFICER CAPTAIN 1 drop Given 03/15/2023 1:48 PM CORRECTIONAL OFFICER CAPTAIN 1 drop Given 02/15/2023 2:30 PM CORRECTIONAL OFFICER CAPTAIN 1 drop povidone-iodine 5 % ophthalmic solution 1 drop (BETADINE) 1 drop, right eye, As needed, irrigation, DIRECTED OPHTHALMIC IN OR, Starting on Itzel 06/10/22 at 0918, For 365 days, Irrigate ocular and periocular region and leave for 2 mins; then flush with sterile saline solution. Given 04/18/2023 12:58 PM CORRECTIONAL OFFICER CAPTAIN 1 drop Given 03/15/2023 1:48 PM CORRECTIONAL OFFICER CAPTAIN 1 drop Given 02/15/2023 2:30 PM CORRECTIONAL OFFICER CAPTAIN 1 drop proparacaine 0.5 % ophthalmic solution 1 drop (ALCAINE) 1 drop, right eye, As needed, DIRECTED OPHTHALMIC IN OR, Starting on Itzel 06/10/22 at 0918, For 365 days Given 04/18/2023 12:58 PM CORRECTIONAL OFFICER CAPTAIN 1 drop Given 03/15/2023 1:48 PM CORRECTIONAL OFFICER CAPTAIN 1 drop Given 02/15/2023 2:30 PM CORRECTIONAL OFFICER CAPTAIN 1 drop tetracaine (PF) 0.5 % ophthalmic solution 1 drop (ALTACAINE) 1 drop, right eye, As needed, DIRECTED OPHTHALMIC IN OR, Starting on Itzel 06/10/22 at 0918, For 365 days Given 04/18/2023 12:58 PM CORRECTIONAL OFFICER CAPTAIN 1 drop Given 03/15/2023 1:47 PM CORRECTIONAL OFFICER CAPTAIN 1 drop Given 02/15/2023 2:30 PM CORRECTIONAL OFFICER CAPTAIN 1 drop Inactive Administered Medications - up to 3 most recent administrations Medication Order MAR Action Action Date Dose Rate Site bevacizumab intraocular injection 1.25 mg (AVASTIN) 1.25 mg, intravitreal, As needed, DIRECTED OPHTHALMIC IN OR, Starting on Itzel 06/10/22 at 0918, Inject into right eye. Given 06/10/2022 4:19 PM CDT 1.25 mg Right Eye documented in this encounter Care Teams Shut Off Worker Relationship Specialty Start Date End Date Elsewhere, Pcp PCP - General Family Medicine 02/17/17 documented as of this encounter
--- OUTSIDE RECORDS SUMMARY | 2023-04-20 07:22 | XMS_ITS | Encounter Summary ---
Author Name Unknown Organization [facility] Address [address] [place] [address] Care Team Providers Care Blow Moulding Machine Operator Name Role Phone Elsewhere, Pcp [...] INJECTION INTRAVITREAL Madison Caicedo M.D. [address] [place] [address] [facility] Referral ID Status Reason Start Date Expiration Date Visits Re quested Visits Authorized [id number] Closed 06/02/2022 06/02/2023 1 1 Encounter Details Date Type Department Care Team (Latest Contact Info) Description 06/02/2022 Orders Only Department of Ophthalmology in [place], [place] [address] [place] [phone] Lopez Longoria, C.O.A. Diabetes Mellitus Type 2 [...] AM CDT Clinical Communication Virtual Review in [place], [place] 200 [place] [address] 05/26/2023 8:30 AM CDT Ancillary Procedure Department of Ophthalmology in [place], [place] [address] [place] [phone] Madison Caicedo M.D. [address] [place] [phone] 05/26/2023 9:00 AM CDT Ancillary Procedure Department of Ophthalmology in [address] [address] Madison Caicedo M.D. [address] [place] [phone] 05/26/2023 9:15 AM CDT Office Visit Department of Ophthalmology in [address] [address] Madison Caicedo M.D. [address] [place] [phone] 05/26/2023 1:20 PM CDT Appointment Outpatient Procedure Center in [place], [place] [address] [place] [phone] Madison Caicedo M.D. [address] [place] [phone] documented as of this encounter Results * [...] Caicedo M.D. OPHTH TOMOGRAPHY Performing Organization Address [facility] de Phone Number OPHTHALMOLOGY IMAGING EXAM * [...] Caicedo M.D. OPHTH PHOTOGRAPHY Performing Organization Address [facility] Phone Number OPHTHALMOLOGY IMAGING EXAM * Fundus [...] eyes ?? Madison Caicedo M.D. OPHTH PHOTOGRAPHY Performing Organization Address [facility] de Phone Number OPHTHALMOLOGY IMAGING EXAM documented in this encounter [...] (HCC) documented in this encounter Care Teams Blow Moulding Machine Operator Relationship Specialty Start Date End Date Elsewhere, Pcp PCP - General Family Medicine 02/17/17 documented as of this encounter
--- OUTSIDE RECORDS SUMMARY | 2023-04-20 07:22 | XMS_ITS | Encounter Summary ---
Author Name Unknown Organization [facility] Address [address] [place] [address] Care Team Providers Care Wood Barker Name Role Phone Elsewhere, Pcp Primary Care Provider Unavailabl e Reason for Visit * Outpatient (Routine) - Authorized Specialty Diagnoses / Procedures Referred By Contac t Referred To Contact Ophthalmology Diagnoses . Procedures OPH TEST VISUAL ACUITY CHECK [facility] [place] [address] [place] [address] Referral ID Status Reason Start Date Expiration Date V isits Requested Visits Authorized [id number] Authorized 06/08/2022 06/08/2023 4 4 Encounter Details Date Type Department Care Team (Latest Contact Info) Description 06/08/2022 10:30 AM CDT Ancillary Procedure Department of Ophthalmology in [place], [place] [address] [place] [phone] Madison Caicedo M.D. [address] [place] [phone] Diabetes Mellitus Type 2 With Mild Nonproliferative [...] AM CDT Clinical Communication Virtual Review in [place], [place] 200 [place] [address] 05/26/2023 8:30 AM CDT Ancillary Procedure Department of Ophthalmology in [place], [place] [address] [place] [phone] Madison Caicedo M.D. [address] [place] [phone] 05/26/2023 9:00 AM CDT Ancillary Procedure Department of Ophthalmology in [address] [address] Madison Caicedo M.D. [address] [place] [phone] 05/26/2023 9:15 AM CDT Office Visit Department of Ophthalmology in [address] [address] Madison Caicedo M.D. [address] [place] [phone] 05/26/2023 1:20 PM CDT Appointment Outpatient Procedure Center in [address] [address] Madison Caicedo M.D. [address] [place] [phone] documented as of this encounter Procedures Procedure [...] (HCC) documented in this encounter Care Teams Wood Barker Relationship Specialty Start Date End Date Elsewhere, Pcp PCP - General Family Medicine 02/17/17 documented as of this encounter
--- OUTSIDE RECORDS SUMMARY | 2023-04-20 07:22 | XMS_ITS | Encounter Summary ---
Author Name Unknown Organization [facility] Address [address] [place] [address] Care Team Providers Care Vegetable Canner Name Role Phone Elsewhere, Pcp Primary Care Provider Unavailabl e Reason for Visit * Outpatient (Routine) - Authorized Specialty Diagnoses / Procedures Referred By Contac t Referred To Contact Ophthalmology Diagnoses . Procedures OPH TEST VISUAL ACUITY CHECK [facility] [place] [address] [place] [address] Referral ID Status Reason Start Date Expiration Date V isits Requested Visits Authorized [id number] Authorized 06/08/2022 06/08/2023 4 4 Encounter Details Date Type Department Care Team (Latest Contact Info) Description 06/08/2022 8:50 AM CDT Ancillary Procedure Department of Ophthalmology in [place], [place] [address] [place] [phone] Madison Caicedo M.D. [address] [place] [phone] Diabetes Mellitus Type 2 With Mild Nonproliferative [...] AM CDT Clinical Communication Virtual Review in [place], [place] 200 [place] [address] 05/26/2023 8:30 AM CDT Ancillary Procedure Department of Ophthalmology in [place], [place] [address] [place] [phone] Madison Caicedo M.D. [address] [place] [phone] 05/26/2023 9:00 AM CDT Ancillary Procedure Department of Ophthalmology in [address] [address] Madison Caicedo M.D. [address] [place] [phone] 05/26/2023 9:15 AM CDT Office Visit Department of Ophthalmology in [address] [address] Madison Caicedo M.D. [address] [place] [phone] 05/26/2023 1:20 PM CDT Appointment Outpatient Procedure Center in [address] [address] Madison Caicedo M.D. [address] [place] [phone] documented as of this encounter Procedures Procedure [...] (HCC) documented in this encounter Care Teams Vegetable Canner Relationship Specialty Start Date End Date Elsewhere, Pcp PCP - General Family Medicine 02/17/17 documented as of this encounter
--- OUTSIDE RECORDS SUMMARY | 2023-04-20 07:22 | XMS_ITS | Encounter Summary ---
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 [address] [place] [address] [facility] Referral ID Status Reason Start Date Expiration Date Visits Re quested Visits Authorized [id number] Closed 06/10/2022 06/10/2023 4 4 Encounter Details Date Type Department Care Team (Latest Contact Info) Description 07/13/2022 2:21 PM CDT - 07/13/2022 2:35 PM CDT Hospital Encounter Outpatient Procedure Center in [place], [place] [address] [place] [address] Madison Caicedo M.D. [address] [place] [address] Diabetes Mellitus Type 2 With Mild Nonproliferative [...] CDT Clinical Communication Virtual Review in [place], [place] 200 [place] [address] 05/26/2023 8:30 AM CDT Ancillary Procedure Department of Ophthalmology in [address] [address] Madison Caicedo M.D. [address] [place] [phone] 05/26/2023 9:00 AM CDT Ancillary Procedure Department of Ophthalmology in [address] [address] Madison Caicedo M.D. [address] [place] [phone] 05/26/2023 9:15 AM CDT Office Visit Department of Ophthalmology in [address] [address] Madison Caicedo M.D. [address] [place] [phone] 05/26/2023 1:20 PM CDT Appointment Outpatient Procedure Center in [address] [address] Madison Caicedo M.D. [address] [place] [phone] documented as of this encounter Procedures Procedure [...] mg/mL ??Route: intravitreal, Site: Right Eye ??[facility]: 55520-554-70 Balanced salt solution irrigation to injected eye [...] return schedule given if requested. Lot # [id number] Exp. 08/26/22 Teodoro Pedroza M.D. OPHTH CLINIC [...] For 365 days Given 04/18/2023 12:58 PM ESE TEACHER 30 mL Given 03/15/2023 1:47 PM ESE TEACHER 30 mL Given 02/15/2023 2:30 PM ESE TEACHER 30 mL carboxymethylcellulose 1 % ophthalmic solution 1 drop (THERATEARS) 1 drop, right eye, As needed, dry eyes, DIRECTED OPHTHALMIC IN OR, Starting on Tue06/10/22 at 0918, For 365 days Given 04/18/2023 12:58 PM ESE TEACHER 1 drop Given 03/15/2023 1:48 PM ESE TEACHER 1 drop Given 02/15/2023 2:30 PM ESE TEACHER 1 drop povidone-iodine 5 % ophthalmic solution 1 drop (BETADINE) 1 drop, right eye, As needed, irrigation, DIRECTED OPHTHALMIC IN OR, Starting on Tue06/10/22 at 0918, For 365 days, Irrigate ocular and periocular region and leave for 2 mins; then flush with sterile saline solution. Given 04/18/2023 12:58 PM ESE TEACHER 1 drop Given 03/15/2023 1:48 PM ESE TEACHER 1 drop Given 02/15/2023 2:30 PM ESE TEACHER 1 drop proparacaine 0.5 % ophthalmic solution 1 drop (ALCAINE) 1 drop, right eye, As needed, DIRECTED OPHTHALMIC IN OR, Starting on Tue06/10/22 at 0918, For 365 days Given 04/18/2023 12:58 PM ESE TEACHER 1 drop Given 03/15/2023 1:48 PM ESE TEACHER 1 drop Given 02/15/2023 2:30 PM ESE TEACHER 1 drop tetracaine (PF) 0.5 % ophthalmic solution 1 drop (ALTACAINE) 1 drop, right eye, As needed, DIRECTED OPHTHALMIC IN OR, Starting on Tue06/10/22 at 0918, For 365 days Given 04/18/2023 12:58 PM ESE TEACHER 1 drop Given 03/15/2023 1:47 PM ESE TEACHER 1 drop Given 02/15/2023 2:30 PM ESE TEACHER 1 drop Inactive Administered Medications - up to 3 most recent administrations Medication Order MAR Action Action Date Dose Rate Site bevacizumab intraocular injection 1.25 mg (AVASTIN) 1.25 mg, intravitreal, As needed, DIRECTED OPHTHALMIC IN OR, Starting on Tue07/13/22 at 1534, Inject into right eye. Given 07/13/2022 3:34 PM CDT 1.25 mg Right Eye documented in this encounter Care Teams Facility Planner Relationship Specialty Start Date End Date Elsewhere, Pcp PCP - General Family Medicine 02/17/17 documented as of this encounter
--- OUTSIDE RECORDS SUMMARY | 2023-04-20 07:22 | XMS_ITS | Encounter Summary ---
Author Name Unknown Organization [facility] Address [address] [place] [address] Care Team Providers Care Spindle Setter Name Role Phone Elsewhere, Pcp Primary Care Provider Unavailabl e Encounter Details Date Type Department Care Team (Latest Contact Info) Description 06/10/2022 3:58 PM CDT - 06/10/2022 11:59 PM CDT Hospital Encounter Outpatient Procedure Center in [place], [place] [address] [place] [address] Teodoro Pedroza M.D. [address] [place] [address] Discharge Disposition: Home or Self [...] AM CDT Clinical Communication Virtual Review in [place], [place] 200 [place] [address] 05/26/2023 8:30 AM CDT Ancillary Procedure Department of Ophthalmology in [address] [address] Madison Caicedo M.D. [address] [place] [phone] 05/26/2023 9:00 AM CDT Ancillary Procedure Department of Ophthalmology in [address] [address] Madison Caicedo M.D. [address] [place] [phone] 05/26/2023 9:15 AM CDT Office Visit Department of Ophthalmology in [place], [place] [address] [place] [phone] Madison Caicedo M.D. [address] [place] [phone] 05/26/2023 1:20 PM CDT Appointment Outpatient Procedure Center in [address] [address] Madison Caicedo M.D. [address] [place] [address] [place] [address] documented as of this encounter Procedures Procedure [...] Right Eye ??[facility]: 83210-131-01 Balanced salt solution irrigation to injected eye [...] and return schedule given if requested. LOT: [id number] EXP: 07/15/2022 Teodoro Pedroza M.D. OPHTH CLINIC PROCEDU RES documented in this encounter Visit Diagnoses Not on filedocumented in this encounter Care Teams Spindle Setter Relationship Specialty Start Date End Date Elsewhere, Pcp PCP - General Family Medicine 02/17/17 documented as of this encounter
--- OUTSIDE RECORDS SUMMARY | 2023-04-20 07:22 | XMS_ITS | Encounter Summary ---
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 [address] [place] [address] [facility] Referral ID Status Reason Start Date Expiration Date Visits Re quested Visits Authorized [id number] Closed 05/13/2022 05/13/2023 1 1 Encounter Details Date Type Department Care Team (Latest Contact Info) Description 06/10/2022 8:30 AM CDT Comprehensive Visit Department of Ophthalmology in [place], [place] [address] [place] [phone] Madison Caicedo M.D. [address] [place] [address] Diabetes Mellitus Due To Underlying [...] left eye: no neovascularization, macular hyperfluorescence temporal; [facility] OCT macula: 06/10/2022 right eye: macular [...] last injection with OCT macula Injection location: [facility] injection slot documented in this encounter Plan of Treatment Upcoming Encounters Date Type Department Care Team (Latest Contact Info) Description 05/23/2023 9:45 AM CDT Clinical Communication Virtual Review in [place], [place] 200 [place] [address] 05/26/2023 8:30 AM CDT Ancillary Procedure Department of Ophthalmology in [address] [phone] Madison Caicedo M.D. [address] [place] [phone] 05/26/2023 9:00 AM CDT Ancillary Procedure Department of Ophthalmology in [address] [address] Madison Caicedo M.D. [address] [place] [phone] 05/26/2023 9:15 AM CDT Office Visit Department of Ophthalmology in [address] [address] Madison Caicedo M.D. [address] [place] [phone] 05/26/2023 1:20 PM CDT Appointment Outpatient Procedure Center in [address] [address] Madison Caicedo M.D. 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
--- OUTSIDE RECORDS SUMMARY | 2023-04-20 07:22 | XMS_ITS | Encounter Summary ---
Author Name Unknown Organization [facility] Address [address] [place] [address] Care Team Providers Care High School Mathematics Teacher Name Role Phone Elsewhere, Pcp Primary [...] AM CDT Clinical Communication Virtual Review in [place], [place] 200 [place] [address] 05/26/2023 8:30 AM CDT Ancillary Procedure Department of Ophthalmology in [place], [place] [address] [place] [phone] Madison Caicedo M.D. [address] [place] [phone] 05/26/2023 9:00 AM CDT Ancillary Procedure Department of Ophthalmology in [place], [place] [address] [place] [address] Madison Caicedo M.D. [address] [place] [phone] 05/26/2023 9:15 AM CDT Office Visit Department of Ophthalmology in [place], [place] [address] [place] [address] Madison Caicedo M.D. [address] [place] [phone] 05/26/2023 1:20 PM CDT Appointment Outpatient Procedure Center in [place], [place] [address] [place] [address] Madison Caicedo M.D. [address] [place] [phone] documented as of this encounter Procedures Procedure [...] on filedocumented in this encounter Care Teams High School Mathematics Teacher Relationship Specialty Start Date End Date Elsewhere, Pcp PCP - General Family Medicine 02/17/17 documented as of this encounter
--- OUTSIDE RECORDS SUMMARY | 2023-04-20 07:22 | XMS_ITS | Encounter Summary ---
Author Name Unknown Organization [facility] Address [address] [place] [address] Care Team Providers Care Upper Marker Name Role Phone Elsewhere, Pcp Primary [...] AM CDT Clinical Communication Virtual Review in [place], [place] 200 [place], [place] [phone] 05/26/2023 8:30 AM CDT Ancillary Procedure Department of Ophthalmology in [place], [place] [address] [place] [phone] Madison Caicedo M.D. [address] [place] [phone] 05/26/2023 9:00 AM CDT Ancillary Procedure Department of Ophthalmology in [place], [place] [address] [place] [address] Madison Caicedo M.D. [address] [place] [phone] 05/26/2023 9:15 AM CDT Office Visit Department of Ophthalmology in [place], [place] [address] [place] [phone] Madison Caicedo M.D. [address] [place] [phone] 05/26/2023 1:20 PM CDT Appointment Outpatient Procedure Center in [place], [place] [address] [place] [phone] Madison Caicedo M.D. [address] [place] [phone] documented as of this encounter Procedures Procedure [...] on filedocumented in this encounter Care Teams Upper Marker Relationship Specialty Start Date End Date Elsewhere, Pcp PCP - General Family Medicine 02/17/17 documented as of this encounter
--- OUTSIDE RECORDS SUMMARY | 2023-04-20 07:23 | XMS_ITS | Encounter Summary ---
Author Name Unknown Organization [facility] Address [address] [place] [address] Care Team Providers Care Precision Lens Technician Name Role Phone Elsewhere, Pcp Primary Care Provider Unavailabl e Encounter Details Date Type Department Care Team (Late st Contact Info) Description 05/10/2017 Historical Ophthalmology RST OPH Benitez Yuan M.D. [address] [place] [address] Social History Tobacco Use Types Packs/Day Years [...] refractive error CDM Reports - EYEGEN Id: [id number] Status: Fnl documented in this encounter Plan of Treatment Upcoming Encounters Date Type Department Care Team (Latest Contact Info) Description 05/23/2023 9:45 AM CDT Clinical Communication Virtual Review in [place], [place] 200 [place], [place] [address] 05/26/2023 8:30 AM CDT Ancillary Procedure Department of Ophthalmology in [place], [place] [address] [place] [phone] Madison Caicedo M.D. [address] [place] [phone] 05/26/2023 9:00 AM CDT Ancillary Procedure Department of Ophthalmology in [place], [place] [address] [place] [phone] Madison Caicedo M.D. [address] [place] [phone] 05/26/2023 9:15 AM CDT Office Visit Department of Ophthalmology in [place], [place] [address] [place] [phone] Madison Caicedo M.D. [address] [place] [phone] 05/26/2023 1:20 PM CDT Appointment Outpatient Procedure Center in [place], [place] [address] [place] [phone] Madison Caicedo M.D. [address] [place] [phone] documented as of this encounter Visit Diagnoses Not on filedocumented in this encounter Care Teams Precision Lens Technician Relationship Specialty Start Date End Date Elsewhere, Pcp PCP - General Family Medicine 02/17/17 documented as of this encounter
--- OUTSIDE RECORDS SUMMARY | 2023-04-20 07:23 | XMS_ITS | Encounter Summary ---
Author Name Unknown Organization [facility] Address [address] [place] [address] Care Team Providers Care Health Services Information Specialist Name Role Phone Elsewhere, Pcp Primary Care Provider Unavailabl e Reason for Visit * Reason Comments Diabetic Eye Exam * Outpatient (Routine) - Closed Specialty Diagnoses / Procedures Referred By Araceli garza Referred To Contact Ophthalmology Wendy Padilla O.D. [address] [place] [address] [facility] Referral ID Status Reason Start Date Expiration Date Visits Re quested Visits Authorized [id number] Closed 02/15/2022 02/14/2025 1 1 Encounter Details Date Type Department Care Team (Latest Contact Info) Description 05/13/2022 2:30 PM CDT Office Visit Department of Ophthalmology in [place], [place] [address] [place] [phone] Wendy Padilla O.D. [address] [place] [phone] Diabetes Mellitus Type 2 With Mild Nonproliferative [...] AM CDT Clinical Communication Virtual Review in [place], [place] 200 [place] [address] 05/26/2023 8:30 AM CDT Ancillary Procedure Department of Ophthalmology in [address] [phone] Madison Caicedo M.D. [address] [place] [phone] 05/26/2023 9:00 AM CDT Ancillary Procedure Department of Ophthalmology in [place], [place] [address] [place] [address] Madison Caicedo M.D. [address] [place] [phone] 05/26/2023 9:15 AM CDT Office Visit Department of Ophthalmology in [place], [place] [address] [place] [address] Madison Caicedo M.D. [address] [place] [phone] 05/26/2023 1:20 PM CDT Appointment Outpatient Procedure Center in [place], [place] [address] [place] [phone] Madison Caicedo M.D. 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
--- OUTSIDE RECORDS SUMMARY | 2023-04-20 07:23 | XMS_ITS | Clinical Summary ---
Author Name Unknown Organization [facility] Address [place], [place] [address] Care Team Providers Care Hatch Tender Name Role Phone Suleiman Barajas MD Primary Care Provider [phone] Medications Medication Sig Dispensed Refills Start Date [...] Influenza for age 65+ 10/29/2022 Care Teams Hatch Tender Relationship Specialty Start Date End Date Suleiman Barajas MD [address] [place] [address] PCP - General Internal Medicine 08/17/17
--- OUTSIDE RECORDS SUMMARY | 2023-04-20 07:23 | XMS_ITS | Encounter Summary ---
Author Name Unknown Organization [facility] Address [address] [place] [address] Care Team Providers Care Event Staff Name Role Phone Elsewhere, Pcp Primary Care Provider Unavailabl e Encounter Details Date Type Department Care Team (Late st Contact Info) Description 03/10/2016 Historical Ophthalmology RST OPH Benitez Yuan M.D. [address] [place] [address] Social History Tobacco Use Types Packs/Day Years [...] refractive error CDM Reports - EYEGEN Id: [id number] Status: Fnl documented in this encounter Plan of Treatment Upcoming Encounters Date Type Department Care Team (Latest Contact Info) Description 05/23/2023 9:45 AM CDT Clinical Communication Virtual Review in [place], [place] [address] [place] [address] 05/26/2023 8:30 AM CDT Ancillary Procedure Department of Ophthalmology in [address] [phone] Madison Caicedo M.D. [address] [place] [phone] 05/26/2023 9:00 AM CDT Ancillary Procedure Department of Ophthalmology in [address] [phone] Madison Caicedo M.D. [address] [place] [phone] 05/26/2023 9:15 AM CDT Office Visit Department of Ophthalmology in [place], [place] [address] [place] [address] Madison Caicedo M.D. [address] [place] [phone] 05/26/2023 1:20 PM CDT Appointment Outpatient Procedure Center in [place], [place] [address] [place] [address] Madison Caicedo M.D. [address] [place] [address] documented as of this encounter Visit Diagnoses Not on filedocumented in this encounter Care Teams Event Staff Relationship Specialty Start Date End Date Elsewhere, Pcp PCP - General Family Medicine 02/17/17 documented as of this encounter
--- OUTSIDE RECORDS SUMMARY | 2023-04-20 07:23 | XMS_ITS | Encounter Summary ---
Author Name Unknown Organization [facility] Address [address] [place] [address] Care Team Providers Care Network Architect Manager Name Role Phone Elsewhere, Pcp Primary Care Provider Unavailabl e Encounter Details Date Type Department Care Team (Latest Contact Info) Description 05/13/2022 2:20 PM CDT Ancillary Procedure Department of Ophthalmology in [place], [place] [address] [place] [phone] Wendy Padilla O.D. [address] [place] [phone] Diabetes Mellitus Type 2 With Mild Nonproliferative [...] AM CDT Clinical Communication Virtual Review in [place], [place] 200 [place] [address] 05/26/2023 8:30 AM CDT Ancillary Procedure Department of Ophthalmology in [place], [place] [address] [place] [phone] Madison Caicedo M.D. [address] [place] [phone] 05/26/2023 9:00 AM CDT Ancillary Procedure Department of Ophthalmology in [address] [phone] Madison Caicedo M.D. [address] [place] [phone] 05/26/2023 9:15 AM CDT Office Visit Department of Ophthalmology in [address] [phone] Madison Caicedo M.D. [address] [place] [phone] 05/26/2023 1:20 PM CDT Appointment Outpatient Procedure Center in [address] [phone] Madison Caicedo M.D. [address] [place] [phone] documented as of this encounter Procedures Procedure [...] Notes TH See note for results Wendy Ramires O.D. 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
--- OUTSIDE RECORDS SUMMARY | 2023-04-20 07:23 | XMS_ITS | Encounter Summary ---
Author Name Unknown Organization [facility] Address [address] [place] [address] Care Team Providers Care Precision Lens Centerer And Edger Name Role Phone Elsewhere, Pcp Primary Care Provider Unavailabl e Encounter Details Date Type Department Care Team (Late st Contact Info) Description 09/08/2016 Historical Ophthalmology RST OPH Benitez Yuan M.D. [address] [place] [address] Social History Tobacco Use Types Packs/Day Years [...] refractive error CDM Reports - EYEGEN Id: [id number] Status: Fnl documented in this encounter Plan of Treatment Upcoming Encounters Date Type Department Care Team (Latest Contact Info) Description 05/23/2023 9:45 AM CDT Clinical Communication Virtual Review in [place], [place] 200 [place] [address] 05/26/2023 8:30 AM CDT Ancillary Procedure Department of Ophthalmology in [address] [phone] Madison Caicedo M.D. [address] [place] [phone] 05/26/2023 9:00 AM CDT Ancillary Procedure Department of Ophthalmology in [address] [address] Madison Caicedo M.D. [address] [place] [phone] 05/26/2023 9:15 AM CDT Office Visit Department of Ophthalmology in [place], [place] [address] [place] [phone] Madison Caicedo M.D. [address] [place] [phone] 05/26/2023 1:20 PM CDT Appointment Outpatient Procedure Center in [place], [place] [address] [place] [phone] Madison Caicedo M.D. [address] [place] [phone] documented as of this encounter Visit Diagnoses Not on filedocumented in this encounter Care Teams Precision Lens Centerer And Edger Relationship Specialty Start Date End Date Elsewhere, Pcp PCP - General Family Medicine 02/17/17 documented as of this encounter
--- OUTSIDE RECORDS SUMMARY | 2023-04-20 07:23 | XMS_ITS | Encounter Summary ---
Author Name Unknown Organization [facility] Address [address] [place] [address] Care Team Providers Care Bitumen Plant Operator Name Role Phone Elsewhere, Pcp Primary Care Provider Unavailabl e Encounter Details Date Type Department Care Team (Late st Contact Info) Description 11/16/2005 Historical Ophthalmology RST OPH Trino Ron M.D. [address] [place] [address] Social History Tobacco Use Types [...] edema L>R CDM Reports - EYEGEN Id: [id number] Status: Fnl documented in this encounter Plan of Treatment Upcoming Encounters Date Type Department Care Team (Latest Contact Info) Description 05/23/2023 9:45 AM CDT Clinical Communication Virtual Review in [place], [place] 200 [place] [address] 05/26/2023 8:30 AM CDT Ancillary Procedure Department of Ophthalmology in [address] [phone] Madison Caicedo M.D. [address] [place] [phone] 05/26/2023 9:00 AM CDT Ancillary Procedure Department of Ophthalmology in [address] [phone] Madison Caicedo M.D. [address] [place] [phone] 05/26/2023 9:15 AM CDT Office Visit Department of Ophthalmology in [address] [phone] Madison Caicedo M.D. [address] [place] [phone] 05/26/2023 1:20 PM CDT Appointment Outpatient Procedure Center in [address] [phone] Madison Caicedo M.D. [address] [place] [phone] documented as of this encounter Visit Diagnoses Not on filedocumented in this encounter Care Teams Bitumen Plant Operator Relationship Specialty Start Date End Date Elsewhere, Pcp PCP - General Family Medicine 02/17/17 documented as of this encounter
--- OUTSIDE RECORDS SUMMARY | 2023-04-20 07:23 | XMS_ITS | Encounter Summary ---
Author Name Unknown Organization [facility] Address [address] [place] [address] Care Team Providers Care Parts Identifier Name Role Phone Elsewhere, Pcp Primary Care [...] AM CDT Clinical Communication Virtual Review in [place], [place] 200 [place], [place] [phone] 05/26/2023 8:30 AM CDT Ancillary Procedure Department of Ophthalmology in [place], [place] [address] [place] [phone] Madison Caicedo M.D. [address] [place] [phone] 05/26/2023 9:00 AM CDT Ancillary Procedure Department of Ophthalmology in [place], [place] [address] [place] [address] Madison Caicedo M.D. [address] [place] [phone] 05/26/2023 9:15 AM CDT Office Visit Department of Ophthalmology in [place], [place] [address] [place] [phone] Madison Caicedo M.D. [address] [place] [phone] 05/26/2023 1:20 PM CDT Appointment Outpatient Procedure Center in [place], [place] [address] [place] [phone] Madison Caicedo M.D. [address] [place] [phone] documented as of this encounter Procedures Procedure [...] on filedocumented in this encounter Care Teams Parts Identifier Relationship Specialty Start Date End Date Elsewhere, Pcp PCP - General Family Medicine 02/17/17 documented as of this encounter
--- OUTSIDE RECORDS SUMMARY | 2023-04-20 07:23 | XMS_ITS | Encounter Summary ---
Author Name Unknown Organization [facility] Address [address] [place] [address] Care Team Providers Care Commercial Estimator Name Role Phone Elsewhere, Pcp Primary Care Provider Unavailabl e Encounter Details Date Type Department Care Team (Late st Contact Info) Description 05/23/2006 Historical Ophthalmology RST OPH Trino Ron M.D. [address] [place] [address] Social History Tobacco Use Types [...] macular edema CDM Reports - EYEGEN Id: [id number] Status: Fnl documented in this encounter Plan of Treatment Upcoming Encounters Date Type Department Care Team (Latest Contact Info) Description 05/23/2023 9:45 AM CDT Clinical Communication Virtual Review in [place], [place] 200 [place] [address] 05/26/2023 8:30 AM CDT Ancillary Procedure Department of Ophthalmology in [address] [phone] Madison Caicedo M.D. [address] [place] [phone] 05/26/2023 9:00 AM CDT Ancillary Procedure Department of Ophthalmology in [address] [phone] Madison Caicedo M.D. [address] [place] [phone] 05/26/2023 9:15 AM CDT Office Visit Department of Ophthalmology in [address] [phone] Madison Caicedo M.D. [address] [place] [phone] 05/26/2023 1:20 PM CDT Appointment Outpatient Procedure Center in [address] [phone] Madison Caicedo M.D. [address] [place] [phone] documented as of this encounter Visit Diagnoses Not on filedocumented in this encounter Care Teams Commercial Estimator Relationship Specialty Start Date End Date Elsewhere, Pcp PCP - General Family Medicine 02/17/17 documented as of this encounter
--- OUTSIDE RECORDS SUMMARY | 2023-04-20 07:23 | XMS_ITS | Encounter Summary ---
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 [address] [place] [address] [facility] [place] [facility] Referral ID Status Reason Start Date Expiration Date Visits Re quested Visits Authorized [id number] Closed 05/13/2022 05/13/2023 1 1 Scheduling Instructions Needed within 4-6 weeks Encounter Details Date Type Department Care Team (Latest Contact Info) Description 05/13/2022 Orders Only Department of Ophthalmology in [place], [place] [address] [place] [address] Tone Stephenson, C.O.AKee [address] [place] [address] Diabetes Mellitus Type 2 With [...] AM CDT Clinical Communication Virtual Review in [place], [place] 200 [place] [address] 05/26/2023 8:30 AM CDT Ancillary Procedure Department of Ophthalmology in [address] [phone] Madison Caicedo M.D. [address] [place] [phone] 05/26/2023 9:00 AM CDT Ancillary Procedure Department of Ophthalmology in [address] [phone] Madison Caicedo M.D. [address] [place] [phone] 05/26/2023 9:15 AM CDT Office Visit Department of Ophthalmology in [address] [phone] Madison Caicedo M.D. [address] [place] [phone] 05/26/2023 1:20 PM CDT Appointment Outpatient Procedure Center in [address] [phone] Madison Caicedo M.D. [address] [place] [phone] Scheduled Referrals Name Type Priority Associated Diagnoses [...] Primary documented in this encounter Care Teams Steam Boiler Fireman Relationship Specialty Start Date End Date Elsewhere, Pcp PCP - General Family Medicine 02/17/17 documented as of this encounter
--- OUTSIDE RECORDS SUMMARY | 2023-04-20 07:23 | XMS_ITS | Encounter Summary ---
Author Name Unknown Organization [facility] Address [address] [place] [address] Care Team Providers Care Furnace Maintenance Name Role Phone Elsewhere, Pcp Primary Care Provider Unavailabl e Encounter Details Date Type Department Care Team (Late st Contact Info) Description 06/07/2016 Historical Ophthalmology RST OPH Benitez Yuan M.D. [address] [place] [address] Social History Tobacco Use Types Packs/Day Years [...] refractive error CDM Reports - EYEGEN Id: [id number] Status: Fnl documented in this encounter Plan of Treatment Upcoming Encounters Date Type Department Care Team (Latest Contact Info) Description 05/23/2023 9:45 AM CDT Clinical Communication Virtual Review in [place], [place] 200 [place] [address] 05/26/2023 8:30 AM CDT Ancillary Procedure Department of Ophthalmology in [address] [phone] Madison Caicedo M.D. [address] [place] [phone] 05/26/2023 9:00 AM CDT Ancillary Procedure Department of Ophthalmology in [address] [phone] Madison Caicedo M.D. [address] [place] [phone] 05/26/2023 9:15 AM CDT Office Visit Department of Ophthalmology in [place], [place] [address] [place] [phone] Madison Caicedo M.D. [address] [place] [phone] 05/26/2023 1:20 PM CDT Appointment Outpatient Procedure Center in [place], [place] [address] [place] [phone] Madison Caicedo M.D. [address] [place] [phone] documented as of this encounter Visit Diagnoses Not on filedocumented in this encounter Care Teams Furnace Maintenance Relationship Specialty Start Date End Date Elsewhere, Pcp PCP - General Family Medicine 02/17/17 documented as of this encounter
--- OUTSIDE RECORDS SUMMARY | 2023-04-20 07:23 | XMS_ITS | Encounter Summary ---
Author Name Unknown Organization [facility] Address [address] [place] [address] Care Team Providers Care Metal Die Finisher Name Role Phone Elsewhere, Pcp Primary Care Provider Unavailabl e Encounter Details Date Type Department Care Team (Late st Contact Info) Description 09/14/2005 Historical Ophthalmology RST OPH Trino Ron M.D. [address] [place] [address] Social History Tobacco Use Types [...] edema L>R CDM Reports - EYEGEN Id: [id number] Status: Fnl documented in this encounter Plan of Treatment Upcoming Encounters Date Type Department Care Team (Latest Contact Info) Description 05/23/2023 9:45 AM CDT Clinical Communication Virtual Review in [place], [place] 200 [place] [address] 05/26/2023 8:30 AM CDT Ancillary Procedure Department of Ophthalmology in [place], [place] [address] [place] [phone] Madison Caicedo M.D. [address] [place] [phone] 05/26/2023 9:00 AM CDT Ancillary Procedure Department of Ophthalmology in [place], [place] [address] [place] [phone] Madison Caicedo M.D. [address] [place] [phone] 05/26/2023 9:15 AM CDT Office Visit Department of Ophthalmology in [address] [phone] Madison Caicedo M.D. [address] [place] [phone] 05/26/2023 1:20 PM CDT Appointment Outpatient Procedure Center in [address] [phone] Madison Caicedo M.D. [address] [place] [phone] documented as of this encounter Visit Diagnoses Not on filedocumented in this encounter Care Teams Metal Die Finisher Relationship Specialty Start Date End Date Elsewhere, Pcp PCP - General Family Medicine 02/17/17 documented as of this encounter
--- OUTSIDE RECORDS SUMMARY | 2023-04-20 07:23 | XMS_ITS | Encounter Summary ---
Author Name Unknown Organization [facility] Address [address] [place] [address] Care Team Providers Care Miniature Set Builder Name Role Phone Elsewhere, Pcp Primary Care Provider Unavailabl e Encounter Details Date Type Department Care Team (Late st Contact Info) Description 07/20/2016 Historical Ophthalmology RST OPH Benitez Yuan M.D. [address] [place] [address] Social History Tobacco Use Types Packs/Day Years [...] refractive error CDM Reports - EYEGEN Id: [id number] Status: Fnl documented in this encounter Plan of Treatment Upcoming Encounters Date Type Department Care Team (Latest Contact Info) Description 05/23/2023 9:45 AM CDT Clinical Communication Virtual Review in [place], [place] 200 [place] [address] 05/26/2023 8:30 AM CDT Ancillary Procedure Department of Ophthalmology in [address] [phone] Madison Caicedo M.D. [address] [place] [phone] 05/26/2023 9:00 AM CDT Ancillary Procedure Department of Ophthalmology in [address] [phone] Madison Caicedo M.D. [address] [place] [phone] 05/26/2023 9:15 AM CDT Office Visit Department of Ophthalmology in [place], [place] [address] [place] [address] Madison Caicedo M.D. [address] [place] [phone] 05/26/2023 1:20 PM CDT Appointment Outpatient Procedure Center in [place], [place] [address] [place] [address] Madison Caicedo M.D. [address] [place] [address] documented as of this encounter Visit Diagnoses Not on filedocumented in this encounter Care Teams Miniature Set Builder Relationship Specialty Start Date End Date Elsewhere, Pcp PCP - General Family Medicine 02/17/17 documented as of this encounter
--- OUTSIDE RECORDS SUMMARY | 2023-04-20 07:23 | XMS_ITS | Encounter Summary ---
Author Name Unknown Organization [facility] Address [address] [place] [address] Care Team Providers Care Genetic Physician Name Role Phone Elsewhere, Pcp Primary Care Provider Unavailabl e Encounter Details Date Type Department Care Team (Late st Contact Info) Description 08/06/2014 Historical Ophthalmology RST OPH Benitez Yuan M.D. [address] [place] [address] Social History Tobacco Use Types Packs/Day Years [...] 7.1 on 02/19/14, Blood sugar this am [id number]. Denies blurred vision, light flashes, floaters, ocular [...] refractive error CDM Reports - EYEGEN Id: [id number] Status: Fnl documented in this encounter Plan of Treatment Upcoming Encounters Date Type Department Care Team (Latest Contact Info) Description 05/23/2023 9:45 AM CDT Clinical Communication Virtual Review in [address] [address] 05/26/2023 8:30 AM CDT Ancillary Procedure Department of Ophthalmology in [address] [phone] Madison Caicedo M.D. [address] [place] [phone] 05/26/2023 9:00 AM CDT Ancillary Procedure Department of Ophthalmology in [address] [phone] Madison Caicedo M.D. [address] [place] [phone] 05/26/2023 9:15 AM CDT Office Visit Department of Ophthalmology in [address] [address] Madison Caicedo M.D. [address] [place] [phone] 05/26/2023 1:20 PM CDT Appointment Outpatient Procedure Center in [place], [place] [address] [place] [phone] Madison Caicedo M.D. [address] [place] [address] documented as of this encounter Visit Diagnoses Not on filedocumented in this encounter Care Teams Genetic Physician Relationship Specialty Start Date End Date Elsewhere, Pcp PCP - General Family Medicine 02/17/17 documented as of this encounter
--- OUTSIDE RECORDS SUMMARY | 2023-04-20 07:23 | XMS_ITS | Encounter Summary ---
Author Name Unknown Organization [facility] Address [address] [place] [address] Care Team Providers Care Bead Cutter Name Role Phone Elsewhere, Pcp Primary Care Provider Unavailabl e Encounter Details Date Type Department Care Team (Late st Contact Info) Description 05/07/2014 Historical Ophthalmology RST OPH Benitez Yuan M.D. [address] [place] [address] Social History Tobacco Use Types Packs/Day Years [...] OCT macula CDM Reports - EYESV Id: [id number] Status: Fnl documented in this encounter Plan of Treatment Upcoming Encounters Date Type Department Care Team (Latest Contact Info) Description 05/23/2023 9:45 AM CDT Clinical Communication Virtual Review in [place], [place] 200 [place] [address] 05/26/2023 8:30 AM CDT Ancillary Procedure Department of Ophthalmology in [place], [place] [address] [place] [phone] Madison Caicedo M.D. [address] [place] [phone] 05/26/2023 9:00 AM CDT Ancillary Procedure Department of Ophthalmology in [place], [place] [address] [place] [phone] Madison Caicedo M.D. [address] [place] [phone] 05/26/2023 9:15 AM CDT Office Visit Department of Ophthalmology in [place], [place] [address] [place] [phone] Madison Caicedo M.D. [address] [place] [phone] 05/26/2023 1:20 PM CDT Appointment Outpatient Procedure Center in [place], [place] [address] [place] [phone] Madison Caicedo M.D. [address] [place] [phone] documented as of this encounter Visit Diagnoses Not on filedocumented in this encounter Care Teams Bead Cutter Relationship Specialty Start Date End Date Elsewhere, Pcp PCP - General Family Medicine 02/17/17 documented as of this encounter
--- OUTSIDE RECORDS SUMMARY | 2023-04-20 07:23 | XMS_ITS | Encounter Summary ---
Author Name Unknown Organization [facility] Address [address] [place] [address] Care Team Providers Care Bridge Construction Inspector Name Role Phone Elsewhere, Pcp Primary Care Provider Unavailabl e Encounter Details Date Type Department Care Team (Late st Contact Info) Description 07/14/2005 Historical Ophthalmology RST OPH Trino Ron M.D. [address] [place] [address] Social History Tobacco Use Types [...] edema L>R CDM Reports - EYEGEN Id: [id number] Status: Fnl documented in this encounter Plan of Treatment Upcoming Encounters Date Type Department Care Team (Latest Contact Info) Description 05/23/2023 9:45 AM CDT Clinical Communication Virtual Review in [address] [address] 05/26/2023 8:30 AM CDT Ancillary Procedure Department of Ophthalmology in [address] [address] Madison Caicedo M.D. [address] [place] [phone] 05/26/2023 9:00 AM CDT Ancillary Procedure Department of Ophthalmology in [address] [address] Madison Caicedo M.D. [address] [place] [phone] 05/26/2023 9:15 AM CDT Office Visit Department of Ophthalmology in [address] [phone] Madison Caicedo M.D. [address] [place] [phone] 05/26/2023 1:20 PM CDT Appointment Outpatient Procedure Center in [address] [phone] Madison Caicedo M.D. [address] [place] [phone] documented as of this encounter Visit Diagnoses Not on filedocumented in this encounter Care Teams Bridge Construction Inspector Relationship Specialty Start Date End Date Elsewhere, Pcp PCP - General Family Medicine 02/17/17 documented as of this encounter
--- OUTSIDE RECORDS SUMMARY | 2023-04-20 07:23 | XMS_ITS | Encounter Summary ---
Author Name Unknown Organization [facility] Address [address] [place] [address] Care Team Providers Care Maintenance Construction Helper Name Role Phone Elsewhere, Pcp Primary Care Provider Unavailabl e Encounter Details Date Type Department Care Team (Late st Contact Info) Description 01/18/2006 Historical Ophthalmology RST OPH Deborah Hernández, C.O.A. [address] [place] [phone] Social History Tobacco Use Types Packs/Day Years [...] left eye. CDM Reports - EYESV Id: [id number] Status: Fnl documented in this encounter Plan of Treatment Upcoming Encounters Date Type Department Care Team (Latest Contact Info) Description 05/23/2023 9:45 AM CDT Clinical Communication Virtual Review in [place], [place] 200 [place] [address] 05/26/2023 8:30 AM CDT Ancillary Procedure Department of Ophthalmology in [place], [place] [address] [place] [phone] Madison Caicedo M.D. [address] [place] [phone] 05/26/2023 9:00 AM CDT Ancillary Procedure Department of Ophthalmology in [place], [place] [address] [place] [phone] Madison Caicedo M.D. [address] [place] [phone] 05/26/2023 9:15 AM CDT Office Visit Department of Ophthalmology in [place], [place] [address] [place] [address] Madison Caicedo M.D. [address] [place] [phone] 05/26/2023 1:20 PM CDT Appointment Outpatient Procedure Center in [place], [place] [address] [place] [phone] Madison Caicedo M.D. [address] [place] [phone] documented as of this encounter Visit Diagnoses Not on filedocumented in this encounter Care Teams Maintenance Construction Helper Relationship Specialty Start Date End Date Elsewhere, Pcp PCP - General Family Medicine 02/17/17 documented as of this encounter
--- OUTSIDE RECORDS SUMMARY | 2023-04-20 07:23 | XMS_ITS | Encounter Summary ---
Author Name Unknown Organization [facility] Address [address] [place] [address] Care Team Providers Care Repairer And Checker Name Role Phone Elsewhere, Pcp Primary Care Provider Unavailabl e Encounter Details Date Type Department Care Team (Late st Contact Info) Description 01/18/2006 Historical Ophthalmology RST OPH Trino Ron M.D. [address] [place] [address] Social History Tobacco Use Types [...] edema L>R CDM Reports - EYEGEN Id: [id number] Status: Fnl documented in this encounter Plan of Treatment Upcoming Encounters Date Type Department Care Team (Latest Contact Info) Description 05/23/2023 9:45 AM CDT Clinical Communication Virtual Review in [place], [place] 200 [place] [address] 05/26/2023 8:30 AM CDT Ancillary Procedure Department of Ophthalmology in [address] [address] Madison Caicedo M.D. [address] [place] [phone] 05/26/2023 9:00 AM CDT Ancillary Procedure Department of Ophthalmology in [address] [address] Madison Caicedo M.D. [address] [place] [phone] 05/26/2023 9:15 AM CDT Office Visit Department of Ophthalmology in [address] [address] Madison Caicedo M.D. [address] [place] [phone] 05/26/2023 1:20 PM CDT Appointment Outpatient Procedure Center in [address] [phone] Madison Caicedo M.D. [address] [place] [phone] documented as of this encounter Visit Diagnoses Not on filedocumented in this encounter Care Teams Repairer And Checker Relationship Specialty Start Date End Date Elsewhere, Pcp PCP - General Family Medicine 02/17/17 documented as of this encounter
--- OUTSIDE RECORDS SUMMARY | 2023-04-20 07:23 | XMS_ITS | Encounter Summary ---
Author Name Unknown Organization [facility] Address [address] [place] [address] Care Team Providers Care Station Helper Name Role Phone Elsewhere, Pcp Primary Care Provider Unavailabl e Encounter Details Date Type Department Care Team (Late st Contact Info) Description 05/08/2014 Historical Ophthalmology RST OPH Benitez Yaun M.D. [address] [place] [address] Social History Tobacco Use Types Packs/Day Years [...] refractive error CDM Reports - EYEGEN Id: [id number] Status: Fnl documented in this encounter Plan of Treatment Upcoming Encounters Date Type Department Care Team (Latest Contact Info) Description 05/23/2023 9:45 AM CDT Clinical Communication Virtual Review in [address] [address] 05/26/2023 8:30 AM CDT Ancillary Procedure Department of Ophthalmology in [address] [phone] Madison Caicedo M.D. [address] [place] [phone] 05/26/2023 9:00 AM CDT Ancillary Procedure Department of Ophthalmology in [address] [phone] Madison Caicedo M.D. [address] [place] [phone] 05/26/2023 9:15 AM CDT Office Visit Department of Ophthalmology in [address] [phone] Madison Caicedo M.D. [address] [place] [phone] 05/26/2023 1:20 PM CDT Appointment Outpatient Procedure Center in [place], [place] [address] [place] [address] Madison Caicedo M.D. [address] [place] [address] documented as of this encounter Visit Diagnoses Not on filedocumented in this encounter Care Teams Station Helper Relationship Specialty Start Date End Date Elsewhere, Pcp PCP - General Family Medicine 02/17/17 documented as of this encounter
[2023-04-20 07:28] VITALS: BP 126/83; PULSE 73; RESP 16; TEMP 36.1; O2SAT 98; BMI 22.6
[2023-04-20] MEDS: KETOROLAC OPHTH 0.5% 1 DROP EYE-RIGHT ×3 (07:30→07:40)
[2023-04-20] MEDS: TETRACAINE 0.5% OPHTH 1 DROP EYE-RIGHT ×2 (07:30→07:35)
[2023-04-20] MEDS: SODIUM CHLORIDE 0.9 % (FLUSH) 10 ML SYRINGE IVF (07:45)
--- NOTE | 2023-04-20 07:56 | SUR.PREOP ---
The eye drops brought by the patient (Ketorolac, Prednisolone, and Ofloxacin) are examined and I have determined they are labeled by the patient's pharmacy for this patient as prescribed by the surgeon. The bottles are intact, recently obtained and appear to be correct.
[2023-04-20] MEDS: TETRACAINE 0.5% OPHTH 2 DROP EYE-RIGHT (08:45)
[2023-04-20] MEDS: BALANCED SALT IRRIG SOLN 15 ML EYE-RIGHT (08:50)
[2023-04-20 09:10] VITALS: BP 109/77; PULSE 73; RESP 16; TEMP 36.5; O2SAT 97
--- NOTE | 2023-04-20 09:12 | W.ANESCHARGE ---
Anesthesia Charges Start Date/Time Anesthesia Start Date: 04/20/23 Anesthesia Start Time: 08:43 Stop Date/Time Anesthesia Stop Date: 04/20/23 Anesthesia Stop Time: 09:13
--- NOTE | 2023-04-20 09:16 | W.PM.OPTPROC ---
Procedure Note Date of procedure: 04/20/23 Will [facility] bill your pro fee for this procedure?: Yes Procedure Description: SURGEON: Marily Kaplan MD PREOPERATIVE DIAGNOSIS: Nuclear sclerotic cataract, right eye. POSTOPERATIVE DIAGNOSIS: Nuclear sclerotic cataract, right eye. NAME OF OPERATION: Phacoemulsification of cataract with posterior chamber intraocular lens implantation in the right eye. ANESTHESIA: Topical. ESTIMATED BLOOD LOSS: Less than 2 cc. COMPLICATIONS: None. PATHOLOGY SPECIMEN: None. INDICATIONS: See consult note for details. The risks, benefits and alternatives of the procedure were explained to the patient, who elected to proceed and signed informed consent to do so. PROCEDURE: The patient was brought to the pre-holding area where the right eye was identified as the operative eye. I placed my initials above this eye. The patient received eye drops consisting of 0.5% tetracaine, 1% tropicamide, 10% phenylephrine, and 0.5% ketorolac. The patient was then brought to the operating room where the right eye was again identified as the operative eye. The eye was prepped with Betadine and draped in the usual sterile ophthalmic fashion. A #15 super-sharp blade was used to create a paracentesis site. 1% non-preserved intracameral lidocaine was injected into the anterior chamber. Endocoat was injected into the anterior chamber. A 2.4 mm keratome was used to create a three-plane self-sealing incision 1 mm anterior to the temporal limbus. A cystotome was used to create an anterior capsular leaflet. The Utrata forceps were used to extend this to form a continuous curvilinear capsulorrhexis. Hydrodissection was performed. The cataract was removed with phacoemulsification using the [id number] technique. The irrigation and aspiration tip was used to remove the remaining cortex. Healon was injected into the capsular bag. An SHUN ZCB00 intraocular lens of 20.5 diopters was injected into the capsular bag. The irrigation and aspiration tip was used to remove the remaining viscoelastic. Balanced salt solution on a cannula was used to hydrate the wound, and the wound was found to be watertight. The pupil was noted to be round. DISPOSITION: The patient was taken to the recovery room and discharged to home in stable condition. The patient was instructed to call me or go to the emergency department with any sudden change, including dramatic loss of vision, severe pain in the eye or eyebrow region, nausea, or vomiting. The patient will follow up in the clinic tomorrow morning.
--- NOTE | 2023-04-20 10:07 | W.ANESCHARGE ---
Anesthesia Charges Start Date/Time Anesthesia Start Date: 04/20/23 Anesthesia Start Time: 08:43 Stop Date/Time Anesthesia Stop Date: 04/20/23 Anesthesia Stop Time: 09:13 Summary Extremes of Age - Over 70 or under 1: MDA
== END 2023-04-20 09:43 | disposition home or self-care (01) ==
LOC: OR 07:17
PROVIDERS: PCP Internal Medicine; Visit Provider Ophthalmology
PROC: (CPT 66984; principal; 2023-04-20 07:30)
DX: H25.11 Age-related nuclear cataract, right eye (principal); E11.9 Type 2 diabetes mellitus without complications
CPT/HCPCS: 66984; 00142; 82962; 99100; A9270; J2250; J3010; V2632

== ENCOUNTER 2024-04-23 09:11 | Outpatient (CLI) | payer MEDICARE, SELFPAY | END 2024-04-23 09:12 | disposition home or self-care (01) | LOC: NFLDREF 04-25 05:31 | PROVIDERS: PCP Internal Medicine; Referring Provider Internal Medicine; Visit Provider Internal Medicine | DX: E11.9 Type 2 diabetes mellitus without complications (principal); I10 Essential (primary) hypertension; E78.5 Hyperlipidemia, unspecified | CPT/HCPCS: 80053; 80061; 82043; 82570 ==

== ENCOUNTER 2024-05-18 16:08 | Emergency (ER) | payer MEDICARE, SELFPAY ==
--- OUTSIDE RECORDS SUMMARY | 2024-05-18 16:09 | XMS_ITS | Encounter Summary ---
Author Organization [facility] Address [address] [place] [address] Care Team Providers Care Preschool Principal Name Role Phone Elsewhere, Pcp Primary Care Provider Unavailabl e Encounter Details Date Type Department Care Team (Late st Contact Info) Description 08/06/2014 Historical Ophthalmology RST OPH Benitez Yuan M.D. 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 Denies blurred vision, light flashes, floaters, ocular [...] refractive error CDM Reports - EYEGEN Id: [id number] Status: Fnl documented in this encounter Plan of Treatment Not on file documented as of this encounter Visit Diagnoses Not on filedocumented in this encounter Care Teams Preschool Principal Relationship Specialty Start Date End Date Elsewhere, Pcp PCP - General Family Medicine 02/17/17 documented as of this encounter
--- OUTSIDE RECORDS SUMMARY | 2024-05-18 16:09 | XMS_ITS | Encounter Summary ---
Author Organization [facility] Address [address] [place] [address] Care Team Providers Care Hospital Sales Representative Name Role Phone Elsewhere, Pcp Primary Care Provider Unavailabl e Encounter Details Date Type Department Care Team (Late st Contact Info) Description 09/14/2005 Historical Ophthalmology RST OPH Trino Ron M.D. [address] [place] [phone] Social History Tobacco Use Types Packs/Day Years Used Date Smoking Tobacco: Never Assessed Sex and Gender Information Value Date Recorded Sex Assigned at Male 12/14/2022 12:21 PM CDT Legal Sex Male 8:19 AM RESIDENT ASSISTANT Gender Identity Male 12/14/2022 12:21 PM CDT [...] edema L>R CDM Reports - EYEGEN Id: [id number] Status: Fnl documented in this encounter Plan of Treatment Not on file documented as of this encounter Visit Diagnoses Not on filedocumented in this encounter Care Teams Hospital Sales Representative Relationship Specialty Start Date End Date Elsewhere, Pcp PCP - General Family Medicine 02/17/17 documented as of this encounter
--- OUTSIDE RECORDS SUMMARY | 2024-05-18 16:09 | XMS_ITS | Encounter Summary ---
Author Organization [facility] Address [address] [place] [address] Care Team Providers Care Packing Line Worker Name Role Phone Elsewhere, Pcp Primary Care Provider Unavailabl e Encounter Details Date Type Department Care Team (Late st Contact Info) Description 01/18/2006 Historical Ophthalmology RST OPH Deborah Hernández, C.O.A. Social History Tobacco Use Types Packs/Day Years Used Date Smoking Tobacco: Never Assessed Sex and Gender Information Value Date Recorded Sex Assigned at Male 12/14/2022 12:21 PM CDT Legal Sex Male 8:19 AM DRAFTER TOOL DESIGN Gender Identity Male 12/14/2022 12:21 PM CDT Sexual Orientation Straight 12/14/2022 12 :21 PM CDT documented as of this encounter Progress Notes * Deborah Hernández, C.O.A. - 01/18/2006 12:00 AM CST Eye Subsequent Visit HISTORY OF PRESENT ILLNESS Proparacaine left eye. Laser left eye. CDM Reports - EYESV Id: [id number] Status: Fnl documented in this encounter Plan of Treatment Not on file documented as of this encounter Visit Diagnoses Not on filedocumented in this encounter Care Teams Packing Line Worker Relationship Specialty Start Date End Date Elsewhere, Pcp PCP - General Family Medicine 02/17/17 documented as of this encounter
--- OUTSIDE RECORDS SUMMARY | 2024-05-18 16:09 | XMS_ITS | Encounter Summary ---
Author Organization [facility] Address [address] [place] [address] Care Team Providers Care Case Investigator Name Role Phone Elsewhere, Pcp Primary Care Provider Unavailabl e Encounter Details Date Type Department Care Team (Late st Contact Info) Description 11/16/2005 Historical Ophthalmology RST OPH Trino Ron M.D. [address] [place] [phone] Social History Tobacco Use Types Packs/Day Years Used Date Smoking Tobacco: Never Assessed Sex and Gender Information Value Date Recorded Sex Assigned at Male 12/14/2022 12:21 PM CDT Legal Sex Male 8:19 AM CELL SUPPORT OPERATOR Gender Identity Male 12/14/2022 12:21 PM CDT [...] edema L>R CDM Reports - EYEGEN Id: [id number] Status: Fnl documented in this encounter Plan of Treatment Not on file documented as of this encounter Visit Diagnoses Not on filedocumented in this encounter Care Teams Case Investigator Relationship Specialty Start Date End Date Elsewhere, Pcp PCP - General Family Medicine 02/17/17 documented as of this encounter
--- OUTSIDE RECORDS SUMMARY | 2024-05-18 16:09 | XMS_ITS | Encounter Summary ---
Author Organization [facility] Address [address] [place] [address] Care Team Providers Care Working Supervisor Name Role Phone Elsewhere, Pcp Primary Care Provider Unavailabl e Encounter Details Date Type Department Care Team (Late st Contact Info) Description 01/18/2006 Historical Ophthalmology RST OPH Trino Ron M.D. [address] [place] [phone] Social History Tobacco Use Types Packs/Day Years Used Date Smoking Tobacco: Never Assessed Sex and Gender Information Value Date Recorded Sex Assigned at Male 12/14/2022 12:21 PM CDT Legal Sex Male 8:19 AM SOLID WASTE FACILITY SUPERVISOR Gender Identity Male 12/14/2022 12:21 PM CDT [...] edema L>R CDM Reports - EYEGEN Id: [id number] Status: Fnl documented in this encounter Plan of Treatment Not on file documented as of this encounter Visit Diagnoses Not on filedocumented in this encounter Care Teams Working Supervisor Relationship Specialty Start Date End Date Elsewhere, Pcp PCP - General Family Medicine 02/17/17 documented as of this encounter
--- OUTSIDE RECORDS SUMMARY | 2024-05-18 16:09 | XMS_ITS | Encounter Summary ---
Author Organization [facility] Address [address] [place] [address] Care Team Providers Care Summer School Coordinator Name Role Phone Elsewhere, Pcp Primary Care Provider Unavailabl e Encounter Details Date Type Department Care Team (Late st Contact Info) Description 05/08/2014 Historical Ophthalmology RST OPH Benitez Yuan M.D. [address] [place] [address] Social History Tobacco Use Types Packs/Day Years Used Date Smoking Tobacco: Never Assessed Sex and Gender Information Value Date Recorded Sex Assigned at Male 12/14/2022 12:21 PM CDT Legal Sex Male 8:19 AM ELECTRIC SEALING MACHINE OPERATOR Gender Identity Male 12/14/2022 12:21 PM [...] refractive error CDM Reports - EYEGEN Id: [id number] Status: Fnl documented in this encounter Plan of Treatment Not on file documented as of this encounter Visit Diagnoses Not on filedocumented in this encounter Care Teams Summer School Coordinator Relationship Specialty Start Date End Date Elsewhere, Pcp PCP - General Family Medicine 02/17/17 documented as of this encounter
--- OUTSIDE RECORDS SUMMARY | 2024-05-18 16:09 | XMS_ITS | Encounter Summary ---
Author Organization [facility] Address [address] [place] [address] Care Team Providers Care Convertible Sofa Bedspring Tester Name Role Phone Elsewhere, Pcp Primary Care Provider Unavailabl e Encounter Details Date Type Department Care Team (Late st Contact Info) Description 06/07/2016 Historical Ophthalmology RST OPH Benitez Yuan M.D. [address] [place] [address] Social History Tobacco Use Types Packs/Day Years Used Date Smoking Tobacco: Never Assessed Sex and Gender Information Value Date Recorded Sex Assigned at Male 12/14/2022 12:21 PM CDT Legal Sex Male 8:19 AM SUPERINTENDENT AUTOMOTIVE Gender Identity Male 12/14/2022 12:21 PM CDT [...] refractive error CDM Reports - EYEGEN Id: [id number] Status: Fnl documented in this encounter Plan of Treatment Not on file documented as of this encounter Visit Diagnoses Not on filedocumented in this encounter Care Teams Convertible Sofa Bedspring Tester Relationship Specialty Start Date End Date Elsewhere, Pcp PCP - General Family Medicine 02/17/17 documented as of this encounter
--- OUTSIDE RECORDS SUMMARY | 2024-05-18 16:09 | XMS_ITS | Encounter Summary ---
Author Organization [facility] Address [address] [place] [address] Care Team Providers Care Pharmacy Stock Clerk Name Role Phone Elsewhere, Pcp Primary Care Provider Unavailabl e Encounter Details Date Type Department Care Team (Late st Contact Info) Description 05/23/2006 Historical Ophthalmology RST OPH Trino Ron M.D. [address] [place] [phone] Social History Tobacco Use Types Packs/Day Years Used Date Smoking Tobacco: Never Assessed Sex and Gender Information Value Date Recorded Sex Assigned at Male 12/14/2022 12:21 PM CDT Legal Sex Male 8:19 AM BLACK LEATHER TRIMMER Gender Identity Male 12/14/2022 12:21 PM CDT [...] macular edema CDM Reports - EYEGEN Id: [id number] Status: Fnl documented in this encounter Plan of Treatment Not on file documented as of this encounter Visit Diagnoses Not on filedocumented in this encounter Care Teams Pharmacy Stock Clerk Relationship Specialty Start Date End Date Elsewhere, Pcp PCP - General Family Medicine 02/17/17 documented as of this encounter
--- OUTSIDE RECORDS SUMMARY | 2024-05-18 16:09 | XMS_ITS | Encounter Summary ---
Author Organization [facility] Address [address] [place] [address] Care Team Providers Care Condominium Manager Name Role Phone Elsewhere, Pcp Primary Care Provider Unavailabl e Encounter Details Date Type Department Care Team (Late st Contact Info) Description 07/14/2005 Historical Ophthalmology RST OPH Trino Ron M.D. [address] [place] [phone] Social History Tobacco Use Types Packs/Day Years Used Date Smoking Tobacco: Never Assessed Sex and Gender Information Value Date Recorded Sex Assigned at Male 12/14/2022 12:21 PM CDT Legal Sex Male 8:19 AM WEIGHT REDUCING TECHNICIAN Gender Identity Male 12/14/2022 12:21 PM CDT [...] and macular edema L>R CDM Reports - EYEBlueKite Id: [id number] Status: Fnl documented in this encounter Plan of Treatment Not on file documented as of this encounter Visit Diagnoses Not on filedocumented in this encounter Care Teams Condominium Manager Relationship Specialty Start Date End Date Elsewhere, Pcp PCP - General Family Medicine 02/17/17 documented as of this encounter
--- OUTSIDE RECORDS SUMMARY | 2024-05-18 16:09 | XMS_ITS | Encounter Summary ---
Author Organization [facility] Address [address] [place] [address] Care Team Providers Care Dementia Program Director Name Role Phone Elsewhere, Pcp Primary Care Provider Unavailabl e Encounter Details Date Type Department Care Team (Late st Contact Info) Description 05/10/2017 Historical Ophthalmology RST OPH Benitez Yuan M.D. [address] [place] [phone] Social History Tobacco Use Types Packs/Day Years Used Date Smoking Tobacco: Never Assessed Sex and Gender Information Value Date Recorded Sex Assigned at Male 12/14/2022 12:21 PM CDT Legal Sex Male 8:19 AM MIXER CRANE OPERATOR Gender Identity Male 12/14/2022 12:21 PM [...] placed . 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
--- OUTSIDE RECORDS SUMMARY | 2024-05-18 16:09 | XMS_ITS | Clinical Summary ---
Author Organization [facility] Address [address] [place] [address] Care Team Providers Care Cold Press Operator Name Role Phone Elsewhere, Pcp Primary Care Provider Unavailabl e Source Comments Patient records contain information from all sites at [facility]. For routine questions regarding patient records, call [phone] during business hours, M-F 8:00 AM - 5:00 PM Central Time. Record requests for emergency care only can be directed to [phone] at any time.[facility] Allergies No known active allergies Medications aspirin [address] tablet Take 1 tablet by mouth daily. 5 Active metFORMIN (FORTAMET) 500 mg 24 hr tablet Take 3 tablets by mouth 2 (two) times a day. 3 tablets in AM, 2 tablets in PM with meal 5 Active ramipril (ALTACE) 10 mg capsule Take 2 capsules by mouth daily. 5 Active simvastatin (ZOCOR) 40 mg tablet Take 1 tablet by mouth daily. 5 Active polyvinyl alcohol (NU-TEARS) 1.4 % ophthalmic solution Administer 1 drop into both eyes as needed. Active blood sugar diagnostic strips every other day. 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 Right Eye 10/13/2022 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 10/13/2022 Diabetes Mellitus Due To Und erlying Condition With Severe Nonproliferative Diabetic Retinopathy Without Macular Edema Left Eye 06/10/2022 Diabetes Mellitus Due To Und erlying Condition With 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 06/10/2022 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 07/20/2016 Diabetes Mellitus Type 2 Macular Edema 7 Hypertension 03/16/2010 Overview (07/20/2016): Hypertension Diabetes Mellitus Type 2 03/16/2010 Overview (07/20/2016): Diabetes mellitus type II Resolved Problems Problem Noted Date Diagnosed Date Resolved Date 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 No 05/22/2023 Exercise Vital Sign Answer Date Recorde d On average, how many days pe r week do you engage in moderate to strenuous exercise (like a brisk walk)? 6 days 05/22/2023 On average, how many minutes do you engage in exercise at this level? 20 min 05/22/2023 Hunger Vital Sign Answer Date Recorded Within the past 12 months, y ou worried that your food would run out before you got the money to buy more. Never true 05/22/19 Within the past 12 months, t he food you bought just didn't last and you didn't have money to get more. Never true 05/22/2023 PRAPARE - Transportation Answer Date Re corded In the past 12 months, has l ack of transportation kept you from medical appointments or from getting medications? No 04/29 In the past 12 months, has l ack of transportation kept you from meetings, work, or from getting things needed for daily living? No 05/22/2023 Nutrition Answer Date Recorded On average, how many serving s of fruits and vegetables do you eat per day (serving size is equal to 1 cup or approximately the size of a tennis ball)? 0-2 05/22/2023 Dental Answer Date Recorded Dental: Regular Dentist No 05/22/19 Employment Answer Date Recorded Employment status Retired 05/22/2023 Housing Stability Answer Date Recorded What is your living situation today? I have a [facility] place to live 05/22/2023 Sex and Gender Information Value Date Recorded Sex Assigned at Male 12/14/2022 12:21 PM CDT Legal Sex Male 8:19 AM TRANSPLANTER ORCHID Gender Identity Male 12/14/2022 12:21 PM CDT Sexual Orientation Straight 12/14/2022 12 :21 PM CDT Plan of Treatment Health Maintenance Due Date Last Done Comments Creatinine Level (Kidney Function Test) 1945 Diabetic Office Visit with Foot Exam 1947 Hemoglobin A1C 1947 Hepatitis B Screening 1947 Hepatitis C Screening 1945 Office Visit for Blood Pressure Check / Re-check 1947 Potassium Level 1947 Sodium Level 1947 Urine Albumin 1947 Zoster Vaccines (1 of 2) 07/03/1997 Hepatitis B Vaccines (1 of 3 - Risk 3-dose series) 2007 Pneumococcal vaccine (50+ years) (3 of 3 - PCV20 or PCV21) 08/21/2019 08/20/2014, 12/06/2006 COVID-19 Vaccine (6 - 2024-25 season) 2023 12/11/2022, 12/11/2021, 12/19/2020, Additional history exists Influenza Vaccine (#1) 2023 , 12/11/2021, 12/08/2020, Additional history exists Depression Screening (Annual PHQ-2) 02/29/2024 Fall Risk Screen (Annual) 02/29/2024 Dilated Eye Exam 05/25/2024 05/26/2023, , 06/08/2022, Additional history exists DTaP,Tdap,and Td Vaccines (3 - Td or Tdap) 03/08/2032 03/08/2022, 07/21/2012 RSV vaccine - (32-36 weeks) or 60+ years Completed 02/07/2023 IPV Vaccines Aged Out No longer eligi ble based on patient's age to complete this topic Procedures Procedure Name Priority Date/Time Associated Diagnosis Comments OPHTHALMOLOGY IMAGE EXAM Routine 05/26/2023 12:00 AM CDT from Last 3 Months or Most Recently Relevant to Health Maintenance Results * Eyes Spectralis OCT-Ophthalmology Image Exam (05/26/2023 12:00 AM CDT) Narrative IIMS - 05/26/2023 9:03 AM CDT This order has been created and auto-finalized to support the import of images acquired without order. The clinical documentation to support these images can be found on the encounter that produced images. us Provider Not In System IMG NON RAD IMAGING PROCE DURES Final Result IIMS NA from Last 3 Months or Most Recently Relevant to Health Maintenance Insurance [facility] [employer] Care Teams Cold Press Operator Relationship Specialty Start Date End Date Elsewhere, Pcp PCP - General Family Medicine 02/17/17
--- OUTSIDE RECORDS SUMMARY | 2024-05-18 16:09 | XMS_ITS | Encounter Summary ---
Author Organization [facility] Address [address] [place] [address] Care Team Providers Care Plumbing And Heating Mechanic Name Role Phone Elsewhere, Pcp Primary Care Provider Unavailabl e Encounter Details Date Type Department Care Team (Late st Contact Info) Description 09/08/2016 Historical Ophthalmology RST OPH Benitez Yuan M.D. [address] [place] [address] Social History Tobacco Use Types Packs/Day Years Used Date Smoking Tobacco: Never Assessed Sex and Gender Information Value Date Recorded Sex Assigned at Male 12/14/2022 12:21 PM CDT Legal Sex Male 8:19 AM ELECTROLYSIS ENGINEER Gender Identity Male 12/14/2022 12:21 PM CDT [...] refractive error CDM Reports - EYEGEN Id: [id number] Status: Fnl documented in this encounter Plan of Treatment Not on file documented as of this encounter Visit Diagnoses Not on filedocumented in this encounter Care Teams Plumbing And Heating Mechanic Relationship Specialty Start Date End Date Elsewhere, Pcp PCP - General Family Medicine 02/17/17 documented as of this encounter
--- OUTSIDE RECORDS SUMMARY | 2024-05-18 16:10 | XMS_ITS | Encounter Summary ---
Author Organization [facility] Address [address] [place] [address] Care Team Providers Care Office Chair Assembler Name Role Phone Elsewhere, Pcp Primary Care Provider Unavailabl e Encounter Details Date Type Department Care Team (Late st Contact Info) Description 07/20/2016 Historical Ophthalmology RST OPH Benitez Yuan M.D. [address] [place] [address] Social History Tobacco Use Types Packs/Day Years Used Date Smoking Tobacco: Never Assessed Sex and Gender Information Value Date Recorded Sex Assigned at Male 12/14/2022 12:21 PM CDT Legal Sex Male 8:19 AM COMPUTER HARDWARE TECHNICIAN Gender Identity Male 12/14/2022 12:21 PM [...] refractive error CDM Reports - EYEGEN Id: [id number] Status: Fnl documented in this encounter Plan of Treatment Not on file documented as of this encounter Visit Diagnoses Not on filedocumented in this encounter Care Teams Office Chair Assembler Relationship Specialty Start Date End Date Elsewhere, Pcp PCP - General Family Medicine 02/17/17 documented as of this encounter
--- OUTSIDE RECORDS SUMMARY | 2024-05-18 16:10 | XMS_ITS | Encounter Summary ---
Author Organization [facility] Address [address] [place] [address] Care Team Providers Care Veterans' Coordinator Name Role Phone Elsewhere, Pcp Primary Care Provider Unavailabl e Encounter Details Date Type Department Care Team (Late st Contact Info) Description 05/07/2014 Historical Ophthalmology RST OPH Benitez Yuan M.D. [address] [place] [address] Social History Tobacco Use Types Packs/Day Years Used Date Smoking Tobacco: Never Assessed Sex and Gender Information Value Date Recorded Sex Assigned at Male 12/14/2022 12:21 PM CDT Legal Sex Male 8:19 AM HEEL SHAVER Gender Identity Male 12/14/2022 12:21 PM CDT Sexual Orientation Straight 12/14/2022 12 :21 PM CDT documented as of this encounter Progress Notes * Benitez Yuan M.D. - 05/07/2014 1:18 PM CDT Eye Subsequent Visit HISTORY OF PRESENT ILLNESS Patient returns for photos IMPRESSION / REPORT / PLAN The following tests have been completed and need interpretation. OCT macula CDM Reports - EYESV Id: [id number] Status: Fnl documented in this encounter Plan of Treatment Not on file documented as of this encounter Visit Diagnoses Not on filedocumented in this encounter Care Teams Veterans' Coordinator Relationship Specialty Start Date End Date Elsewhere, Pcp PCP - General Family Medicine 02/17/17 documented as of this encounter
--- OUTSIDE RECORDS SUMMARY | 2024-05-18 16:10 | XMS_ITS | Clinical Summary ---
Author Organization [facility] Address [address] [place] [id number] Care Team Providers Care Auto Transmission Technician Name Role Phone Suleiman Barajas MD Primary Care Provider [phone] Medications aspirin (ECOTRIN) 81 mg enteric coated tablet Take 81 mg by mouth once daily. Active blood sugar diagnostic (BLOOD GLUCOSE TEST) strip once every other day. 03/31/2016 Active glipiZIDE (GLUCOTROL) 10 mg tablet Take 20 mg by mouth 2 times daily before meals. 04/27/2017 Active metFORMIN (GLUCOPHAGE) 500 mg tablet Take 1,500 mg by mouth 2 times daily with meals. 04/27/2017 Active ramipril (ALTACE) 10 mg capsule Take 20 mg by mouth once daily. 11/10/2016 Active simvastatin (ZOCOR) 40 mg tablet Take 40 mg by mouth once daily. 02/11/2017 Active Social History Tobacco Use Types Packs/Day Years Used Date Smoking Tobacco: Never Smokeless Tobacco: Never Tobacco Cessation:Counseling Given: Yes Alcohol Use Standard Drinks/Week Comments No 0 (1 standard drink = 0.6 oz pur e alcohol) Sex and Gender Information Value Date Recorded Sex Assigned at Not on file Legal Sex Male 7:52 PM AVIONICS TEST TECHNICIAN Gender Identity Not on file Sexual Orientation Not on file Obstetrics History Last Filed Vital Signs Vital Sign Reading Time Taken Comments Blood Pressure 143/82 07/26/2018 7:54 AM CDT tow er Pulse 68 07/26/2018 7:54 AM CDT Temperature 36.4 C (97.5 F) 09/21/2017 9:07 AM CDT Respiratory Rate - - Oxygen Saturation 98% 07/26/2018 7:54 AM CDT Inhaled Oxygen Concentration - - Weight 86.1 kg (189 lb 14.4 oz) 07/26/2018 7:54 AM CDT Height - - Body Mass Index - - Plan of Treatment Health Maintenance Due Date Last Done Comments Tdap 07/03/1958 Depression screening for age 12+ 1959 BMI (ht and wt on same day) for age 18+ 07/03/1965 Hepatitis C screening for age 18-79 07/03/1965 Tetanus booster 1967 Pneumococcal series for age 50+ (1 of 1 - PCV) 998 Zoster (shingles) series for age 50+ (1 of 2) 07/03/18 98 Medicare Wellness for age 65+ 07/03/2012 RSV vaccine for adults or pr egnancy (1 - 1-dose 75+ series) 07/03/2022 COVID-19 vaccine series ( - 2023- season) 4 Influenza Vaccine (#1) 2023 Insurance BLUE CROSS MEDICARE ADVANTAGE MR Care Teams Auto Transmission Technician Relationship Specialty Start Date End Date Suleiman Barajas MD [address] [place] [address] PCP - General Internal Medicine 08/17/17
--- OUTSIDE RECORDS SUMMARY | 2024-05-18 16:10 | XMS_ITS | Encounter Summary ---
Author Organization [facility] Address [address] [place] [address] Care Team Providers Care Chemistry Account Manager Name Role Phone Elsewhere, Pcp Primary Care Provider Unavailabl e Encounter Details Date Type Department Care Team (Late st Contact Info) Description 03/10/2016 Historical Ophthalmology RST OPH Benitez Yuan M.D. [address] [place] [address] Social History Tobacco Use Types Packs/Day Years Used Date Smoking Tobacco: Never Assessed Sex and Gender Information Value Date Recorded Sex Assigned at Male 12/14/2022 12:21 PM CDT Legal Sex Male 8:19 AM PARCEL POST ORDER CLERK Gender Identity Male 12/14/2022 12:21 PM CDT [...] refractive error CDM Reports - EYEGEN Id: [id number] Status: Fnl documented in this encounter Plan of Treatment Not on file documented as of this encounter Visit Diagnoses Not on filedocumented in this encounter Care Teams Chemistry Account Manager Relationship Specialty Start Date End Date Elsewhere, Pcp PCP - General Family Medicine 02/17/17 documented as of this encounter
[2024-05-18 16:15] VITALS: BP 167/93; PULSE 85; RESP 18; TEMP 36.4; O2SAT 98; BMI 23.7
--- NOTE | 2024-05-18 16:37 | CRLHL7_ITS ---
For Patients: As a result of the Century Cures Act, medical imaging exams and procedure reports are released immediately into your electronic medical record. You may view this report before your referring provider. If you have questions, please contact your health care provider. INDICATION: Lower abdominal pain. Vomiting. TECHNIQUE: CT abdomen and pelvis acquired with 74 mL Isovue 370 IV contrast. COMPARISON: None. FINDINGS: Lower chest: Subpleural reticulations in the bilateral lung bases, compatible with fibrotic changes. Few scattered pulmonary nodules, for example a partially visualized 0.5 cm mildly spiculated nodule in the right middle lobe. Punctate calcified granuloma in the lingula. Liver: No suspicious focal hepatic lesion. Gallbladder and bile ducts: Cholelithiasis. No secondary signs of acute cholecystitis. Pancreas: Unremarkable. Spleen: Unremarkable. Adrenal glands: Unremarkable. Kidneys: 0.2 cm calculus in the distal left ureter, just upstream of the left ureterovesicular junction, resulting in mild left hydronephrosis and hydroureter. Superimposed left perinephric and periureteral inflammation, concerning for superinfection. Too small to characterize hypodense lesion in the upper pole of the right kidney. Retroperitoneum: No lymphadenopathy. Bowel and mesentery: Bowel is not obstructed. No significant ascites, no pneumoperitoneum. Normal appendix. Scattered colonic diverticulosis, without evidence of acute diverticulitis. Bladder: Unremarkable for degree of distention. Reproductive organs: No significant prostatomegaly. Pelvic lymph nodes: No lymphadenopathy. Vessels: Scattered atherosclerotic calcifications. Abdominal wall: No acute abdominal wall abnormality. Bones: Multilevel degenerative changes of the spine. Bones are osteopenic. Bilateral L5 pars defects. There is a soft tissue mass with stippled calcifications in the right aracely sacrum measuring 2.4 x 2.2 x 2.4 cm. IMPRESSION: 1. Obstructing 0.2 cm calculus in the distal left ureter, just upstream of the left ureterovesicular junction, resulting in mild left hydronephrosis and hydroureter. There is superimposed left perinephric and periureteral inflammation, concerning for superimposed infection. 2. Fibrotic changes in the lung bases. Scattered pulmonary nodules measuring up to 0.5 cm in the right middle lobe with mild spiculation. Recommend follow-up CT chest. 3. Soft tissue mass with stippled calcifications in the right aracely sacrum measuring up to 2.4 cm. Recommend further evaluation with MRI, on a nonemergent basis. 4. Additional incidental findings as above. Please note that all CT scans at this facility use dose modulation, iterative reconstruction, and/or weight-based dosing when appropriate to reduce radiation dose to as low as reasonably achievable. Dictated by Angela Reyes MD @ 05/18/2024 6:08:51 PM (Electronically Signed)
[2024-05-18] MEDS: 0.9 % SODIUM CHLORIDE 1000 ml 1,000 ML IV (16:40)
[2024-05-18] MEDS: MORPHINE 4 MG/ML INJ IVP ×2 (16:40→21:41)
[2024-05-18] MEDS: ONDANSETRON 2 MG/ML inj 4 MG IVP (16:40)
[2024-05-18 16:47] LABS: Appearance Urine Clear (Clear); Bilirubin Urine Negative (Negative); Blood Urine 1+ (Negative); Color Urine Yellow (Yellow); Glucose Urine Trace (Negative); Ketones Urine 2+ (Negative); Leukocyte Esterase Urine Negative (Negative); Nitrite Urine Negative (Negative); Protein Urine 1+ (Negative); Specific Gravity Urine >= 1.030 (1.000-1.030); Urobilinogen Urine 0.2 (0.2-1.0); pH Urine 5.5 (5.0-8.5)
[2024-05-18 16:48] LABS: Basophils Percent Auto 0.3 % (0.0-3.0); Eosinophils Percent Auto 0.1 % (0.0-7.0); Hematocrit 41.2 % (37.0-53.0); Hemoglobin* 13.8 gm/dL (13.5-17.5); Immature Granulocytes Pct Auto 0.2 %; Lymphocytes Percent Auto 5.7 % (20-44); Mean Corpuscular HGB Conc 34 gm/dL (32-36); Mean Corpuscular Hemoglobin 30 pg (26-34); Mean Corpuscular Volume 91 fL (80-100); Monocytes Percent Auto 2.7 % (0.0-11.0); Platelet Count* 194 K/uL (140-440); RDW Coefficient of Variation % 13.1 % (11.5-15.5); Red Blood Count 4.55 m/uL (4.30-5.90); White Blood Count* 17.68 K/uL (4.50-11.00)
[2024-05-18 16:52] LABS: Slide Review Reflex No
--- NOTE | 2024-05-18 16:52 | ED_ITS ---
HPI - General Adult General Date Seen: 05/18/24 Chief complaint: Abdominal Pain Stated complaint: Stomach pain Time Seen by Provider: 05/18/24 16:17 History of Present Illness HPI narrative: patient is a 78-year-old male here with his for evaluation of left-sided flank and abdominal pain. He notes that symptoms started fairly abruptly this morning at around 10:00 a.m. and have been persistent since then although it has moved now more into his left abdomen and pelvis. He denies prior history of similar pain. Rates the Pain is severe and as it has gotten worse he has developed vomiting, says he has vomited probably 6 times. Does not vomiting blood. Has not been lightheaded or faint. No diarrhea black or bloody stools. No urinary symptoms. No history of kidney stones. Does have a history of diabetes. does not smoke or drink. Was not able to take anything for pain at home because of the vomiting. Related Data Home Medications ?Medication ?Instructions ?Recorded ?Confirmed aspirin 81 mg chewable tablet 81 mg PO QDAY 12/02/21 04/24/24 Previous Rx's ?Medication ?Instructions ?Recorded metformin 500 mg tablet 500 mg PO .COMPLEX #450 tabs 04/24/24 ramipril 10 mg capsule 20 mg (2 x 10 mg) PO QDAY Diabetes 04/24/24 #180 caps simvastatin 40 mg tablet 40 mg PO .Bedtime #90 tabs 04/24/24 semaglutide 0.25 mg or 0.5 mg (2 0.25 mg (0.368 mL) subcut QWEEK 05/03/24 mg/3 mL) subcutaneous pen injector Diabetes #9 mL Allergies Allergy/AdvReac Type Severity Reaction Status Date / Time No Known Drug Allergies Allergy Verified 05/18/24 17:19 Review of Systems Status of ROS: Reports: 10 or more systems reviewed and unremarkable except as noted in History and below [facility] Medical History (Updated 05/18/24 @ 20:42 by Obdulia Howe MD) Pre-op evaluation ?Z01.818 - Encounter for other preprocedural examination (ICD-10) Social History (Updated 04/24/24 @ 11:22 by Susan Rao ~ [facility]) What is your current living situation?: I presently have a place to live Problems where you live: no known problems In the past 12 months, utilities in danger of being shut off: no In past 12 months, lack of transportation kept you from medical appts, meetings, work, or getting things needed for daily living: no In the past 12 mos, have been you worried that your food would run out before you had money to buy more?: never true In the past 12 mos, the food you bought just didn't last and you didn't have money to buy more?: never true Smoking Status: Never smoker Do you use any of these nicotine containing products: None How often do you have a drink containing alcohol: never How often do you have six or more drinks on one occasion: Never AUDIT-C Alcohol total score: 0 Non-prescribed substance use: denies use Caffeine: No How often does anyone, including family, friends and others, physically hurt you : never How often does anyone, including family, friends and others, insult or talk down to you: never How often does anyone, including family, friends and others, threaten you with harm: never How often does anyone, including family, friends and others, scream or curse at you: never service: No Exam Narrative: Exam Narrative: Vital signs reviewed In general, alert, nontoxic Elderly male. He looks uncomfortable. Head: Normocephalic, atraumatic. Eyes: Sclera clear. Pupils equal and reactive. ENT: Mucous membranes moist. Neck: Supple without adenopathy. Heart: Regular rate and rhythm without murmur. Lungs: Clear. No increased work of breathing, crackles or wheezes. Abdomen: Abdomen is nondistended, fairly diffusely tender to palpation both in the central abdomen and left abdomen, a little bit less so on the right. Negative Marie sign. He does have some guarding. Extremities: Well perfused, pulses intact. No significant edema. Neurologic: Alert, conversant. Speech fluent, face symmetric. Moves all extremities equally. Skin: Warm, dry well perfused. Affect: Normal. Const: Vital Signs, click to edit/add: Vital Signs - 24 hr 05/18/24 16:15 05/18/24 17:59 05/18/24 20:15 Temperature 97.6 F 98.0 F 98.0 F Pulse Rate [Pulse Oximeter] 85 85 85 Respiratory Rate 18 16 16 Blood Pressure [Ri ght Upper Arm] 167/93 H 120/67 135/79 Pulse Oximetry 98 98 96 Oxygen Delivery Me thod Room Air Room Air Room Air Documenting provider has reviewed patient's vital signs: yes Course Course ED Course: following initial evaluation, an IV was placed, he was given morphine and Zofran as well as a L of normal saline. Pain is improved. I did look with the bedside ultrasound. I do not see any significant hydronephrosis on either side, aorta is normal caliber, he does have some gallstones but has a negative sonographic Marie sign. He is quite clear that symptoms are on the left so I think biliary colic or cholecystitis are unlikely causes for his symptoms. Other diagnostic considerations would be kidney stone, pyelonephritis, aortic dissection, bowel obstruction or volvulus, perforated viscus, peptic ulcer, among others. I elected to do a CT scan with contrast as I do not see obvious hydronephrosis and his abdominal exam is somewhat atypical for kidney stone. UA is pending as well as other labs. Pain was improved after morphine and Zofran. Labs notable for a white blood cell count of 17.6 with 91% neutrophils. Other labs reviewed and unremarkable aside from elevated blood sugar of 188. Urinalysis did show 5-10 red cells, 0-2 white blood cells. His initial CT scan by my review showed a small stone in the distal left ureter with associated hydroureter, mild hydronephrosis. Radiology read reviewed, they read as showing a 2mm calculus in the distal left ureter with superimposed perinephric and periureteral inflammation concerning for superinfection. They also noted a 2.5 cm calcified mass in the right aracely sacrum, they recommended a nonemergent MRI for further characterization. When I went back in to re-evaluate the patient, he said he was feeling much better in fact pain was largely gone. When he 1st came back from CT the nurse had notified me he was having more pain so I had ordered a 2nd dose of morphine, but it was not giving because his pain had improved. I had him void through a strainer, there is no evidence of a stone. Therefore I decided to repeat his CT scan hoping that we might be able to see the ureters and assess whether the stone had moved into the bladder. Because of the superimposed infection I felt it was important to see whether he had persistent obstruction. Unfortunately, the ureters and bladder are both entirely filled with contrast, so the stone itself cannot be seen. However, he has continued hydroureter and mild hydronephrosis, so the radiologist suspects that the stone has not moved. In addition however he does have extravasation of contrast from the ureter, suggesting ureteral injury. All in all, I recommended transfer for Urology consult and intervention. He has remained hemodynamically stable. I have added on a lactate and procalcitonin, ordered a blood culture, and gave him a g of Rocephin IV. I was able to speak with the hospitalist at [facility], she conferred with the urologist as well and they agree with transfer to their facility. Waiting on bed assignment as of 815 pm. I did discuss the incidentally found sacral mass with the [facility] hospitalist as well. Vital Signs Vital signs: Initial Vital Signs Temperature 97.6 F 05/18/24 16:15 Temperature Source Temporal Artery Scan 05/18/24 16:15 Pulse Rate 85 05/18/24 16:15 Pulse Rhythm Regular 05/18/24 16:15 Respiratory Rate 18 05/18/24 16:15 Blood Pressure 167/93 H 05/18/24 16:15 Blood Pressure Mean 117 H 05/18/24 16:15 Blood Pressure Position Supine 05/18/24 16:15 Pulse Oximetry 98 05/18/24 16:15 Oxygen Delivery Method Room Air 05/18/24 16:15 Vital Signs Temperature 97.6 F 05/18/24 16:15 Pulse Rate 85 05/18/24 16:15 Respiratory Rate 18 05/18/24 16:15 Blood Pressure 167/93 H 05/18/24 16:15 Pulse Oximetry 98 05/18/24 16:15 Oxygen Delivery Method Room Air 05/18/24 16:15 Temperature 98.0 F 05/18/24 20:15 Pulse Rate 85 05/18/24 20:15 Respiratory Rate 16 05/18/24 20:15 Blood Pressure 135/79 05/18/24 20:15 Pulse Oximetry 96 05/18/24 20:15 Oxygen Delivery Method Room Air 05/18/24 20:15 Medications Administered Medications: Discontinued Medications Generic Name Dose Route Start Last Admin Trade Name Freq PRN Reason Stop Dose Admin Sodium Chloride 1,000 mls @ 1,000 mls/hr 05/18/24 16:30 05/18/24 17:57 0.9 % Sodium Chloride 1000 Ml IV 05/18/24 17:29 Infused .Q1H SLOANE Infusion Ceftriaxone Sodium 1 gm/ 100 mls @ 200 mls/hr 05/18/24 19:37 05/18/24 20:32 Sodium Chloride IVPB 05/18/24 19:38 Infused ONCE ONE Infusion Metoclopramide HCl 10 mg/ 102 mls @ 306 mls/hr 05/18/24 19:42 05/18/24 20:13 Sodium Chloride IVPB 05/18/24 19:43 306 mls/hr ONCE ONE Administration Morphine Sulfate 4 mg 05/18/24 16:26 05/18/24 16:40 Morphine 4 Mg/Ml Inj IVP 05/18/24 16:27 4 mg ONCE ONE Administration Ondansetron HCl 4 mg 05/18/24 16:26 05/18/24 16:40 Ondansetron 2 Mg/Ml Inj IVP 05/18/24 16:27 4 mg ONCE ONE Administration Medical Decision Making Lab Data Lab results reviewed: Yes I reviewed the patient's lab results Labs: Lab Results 05/18/24 Range/Units 16:20 WBC 17.68 H (4.50-11.00) K/uL RBC 4.55 (4.30-5.90) m/uL Hgb 13.8 (13.5-17.5) gm/dL Hct 41.2 (37.0-53.0) % MCV 91 (80-100) fL MCH 30 (26-34) pg MCHC 34 (32-36) gm/dL RDW Coeff of Dre 13.1 (11.5-15.5) % Plt Count 194 (140-440) K/uL Neut % (Auto) 91.0 H (42.0-72.0) % Lymph % (Auto) 5.7 L (20-44) % [place] % (Auto) 2.7 (0.0-11.0) % Eos % (Auto) 0.1 (0.0-7.0) % Baso % (Auto) 0.3 (0.0-3.0) % Neut # (Auto) 16.10 H (1.7-7.0) K/uL Lymph # (Auto) 1.00 (0.90-2.90) K/uL [place] # (Auto) 0.50 (0.00-0.90) K/UL Eos # (Auto) 0.00 (0.00-0.50) K/uL Baso # (Auto) 0.10 (0.00-0.30) K/uL Abs Immat Gran (auto) 0.00 (0.00-0.30) K/uL Imm/Tot Granulo (auto) 0.2 % Sodium 141 (135-149) mmol/L Potassium 4.3 (3.6-5.1) mmol/L Chloride 104 (96-114) mmol/L Carbon Dioxide 22 (20-32) mmol/L Anion Gap 15 (7-15) mEq/L BUN 22 (7-30) mg/dL Creatinine 1.2 (0.5-1.5) mg/dL Estimated Creat Clear 55.78 Estimated GFR 63 ml/min Glucose 188 H (60-115) mg/dL Calcium 9.5 (8.4-10.6) mg/dL Total Bilirubin 1.2 (0.1-1.5) mg/dL Direct Bilirubin 0.5 (0.0-0.5) mg/dL AST 47 H (12-35) U/L ALT 46 (4-50) U/L Alkaline Phosphatase 82 (40-150) U/L C-Reactive Protein < 0.5 L (0.5-1.0) mg/dL Total Protein 7.8 (6.0-8.3) g/dL Albumin 5.0 (3.3-5.0) g/dL Lipase 80 (23-300) U/L Urine Color Yellow (Yellow) Urine Appearance Clear (Clear) Urine pH 5.5 (5.0-8.5) Ur Specific [place] >= 1.030 (1.000-1.030) Urine Protein 1+ A (Negative) Urine Glucose (UA) Trace A (Negative) Urine Ketones 2+ A (Negative) Urine Blood 1+ A (Negative) Urine Nitrite Negative (Negative) Urine Bilirubin Negative (Negative) Urine Urobilinogen 0.2 (0.2-1.0) Ur Leukocyte Esterase Negative (Negative) Urine RBC 5-10 A (0-2) Urine WBC 0-2 (0-5) Ur Squamous Epith Cells None (None-Few) Urine Bacteria None (None) Imaging Data CT scan - abdomen: Attestation: I have reviewed the pertinent imaging results. Radiologist's impression: [place] [address] Diagnostic Imaging Report Patient: Karsten Arthur MR#: [id number] : 1945 Acct:[id number] Loc: ED Service Date: 05/18/[address]: Ordering Physician: Obdulia Howe M.D. Date of Service: 05/18/24 Procedure(s): CT abdomen pelvis w con Accession Number(s): [id number] cc: Obdulai Howe M.D.; Suleiman Barajas M.D.~ For Patients: As a result of the Century Cures Act, medical imaging exams and procedure reports are released immediately into your electronic medical record. You may view this report before your referring provider. If you have questions, please contact your health care provider. INDICATION: Lower abdominal pain. Vomiting. TECHNIQUE: CT abdomen and pelvis acquired with 74 mL Isovue 370 IV contrast. COMPARISON: None. FINDINGS: Lower chest: Subpleural reticulations in the bilateral lung bases, compatible with fibrotic changes. Few scattered pulmonary nodules, for example a partially visualized 0.5 cm mildly spiculated nodule in the right middle lobe. Punctate calcified granuloma in the lingula. Liver: No suspicious focal hepatic lesion. Gallbladder and bile ducts: Cholelithiasis. No secondary signs of acute cholecystitis. Pancreas: Unremarkable. Spleen: Unremarkable. Adrenal glands: Unremarkable. Kidneys: 0.2 cm calculus in the distal left ureter, just upstream of the left ureterovesicular junction, resulting in mild left hydronephrosis and hydroureter. Superimposed left perinephric and periureteral inflammation, concerning for superinfection. Too small to characterize hypodense lesion in the upper pole of the right kidney. Retroperitoneum: No lymphadenopathy. Bowel and mesentery: Bowel is not obstructed. No significant ascites, no pneumoperitoneum. Normal appendix. Scattered colonic diverticulosis, without evidence of acute diverticulitis. Bladder: Unremarkable for degree of distention. Reproductive organs: No significant prostatomegaly. Pelvic lymph nodes: No lymphadenopathy. Vessels: Scattered atherosclerotic calcifications. Abdominal wall: No acute abdominal wall abnormality. Bones: Multilevel degenerative changes of the spine. Bones are osteopenic. Bilateral L5 pars defects. There is a soft tissue mass with stippled calcifications in the right aracely sacrum measuring 2.4 x 2.2 x 2.4 cm. IMPRESSION: 1. Obstructing 0.2 cm calculus in the distal left ureter, just upstream of the left ureterovesicular junction, resulting in mild left hydronephrosis and hydroureter. There is superimposed left perinephric and periureteral inflammation, concerning for superimposed infection. 2. Fibrotic changes in the lung bases. Scattered pulmonary nodules measuring up to 0.5 cm in the right middle lobe with mild spiculation. Recommend follow-up CT chest. 3. Soft tissue mass with stippled calcifications in the right aracely sacrum measuring up to 2.4 cm. Recommend further evaluation with MRI, on a nonemergent basis. 4. Additional incidental findings as above. Please note that all CT scans at this facility use dose modulation, iterative reconstruction, and/or weight-based dosing when appropriate to reduce radiation dose to as low as reasonably achievable. Dictated by Angela Reyes MD @ 05/18/2024 6:08:51 PM Patient: KARSTEN MADERAP Facility: [facility] Site . Site : 1945 Study: CT-Abdomen/Pelvis A/P WITHOUT-05/18/2024 6:48:21 PM Ordering Physician: Carley Steiner Final Report: INDICATION: . IF STONE PASSED,PT IS NOT HAVING PAIN ANYMORE TECHNIQUE: CT abdomen and pelvis without contrast. COMPARISON: Same day. FINDINGS: Lower chest: Basilar peripheral subpleural linear articulation. ABDOMEN: Liver: Normal attenuation. Gallbladder and biliary: Cholelithiasis. Normal caliber bile ducts. Spleen: Normal size and attenuation. Pancreas: The noncontrast pancreas is homogeneous in attenuation without peripancreatic inflammatory changes or ductal dilatation. Adrenal glands: Normal adrenal glands. Kidneys and ureters: Contrast opacifies the renal collecting systems. There is contrast external to the left ureter suggesting underlying ureteral injury. Persistent prominence/borderline left-sided hydroureteronephrosis. Distal left 2 millimeter ureteral stone is likely unchanged in position. GI tract: Stomach is partially distended with fluid and air. Normal caliber small and large bowel loops. Normal appendix. Vascular structures: Normal caliber aorta with atherosclerotic calcifications. Lymph nodes: No lymphadenopathy in the abdomen or pelvis by size criteria. Peritoneum: No free air or focal drainable collection. PELVIS: Genitourinary system: Urinary bladder is partially distended with contrast. No discrete filling defects. SKELETAL STRUCTURES AND SOFT TISSUES: Grade 1 anterolisthesis of L5 on S1 secondary to bilateral L5 pars defects. Multilevel lumbar spondylosis. IMPRESSION: There is contrast external to the left ureter suggesting underlying ureteral injury. Persistent prominence/borderline left-sided hydroureteronephrosis. Distal left 2 millimeter ureteral stone is likely unchanged in position. Please note that all CT scans at this facility use dose modulation, iterative reconstruction, and/or weight-based dosing when appropriate to reduce radiation dose to as low as reasonably achievable. Dictated by Douglas Lopez MD @ 05/18/2024 7:28:28 PM Discharge Plan Discharge Clinical Impression: Left ureteral stone, Pyelonephritis, Left ureteral injury Patient Disposition: [facility] Prescriptions: No Action aspirin 81 mg tablet,chewable 81 mg PO QDAY ramipril 10 mg capsule 20 mg PO QDAY Qty: 180 3RF simvastatin 40 mg tablet 40 mg PO .Bedtime Qty: 90 1RF metformin 500 mg tablet 500 mg PO .COMPLEX Qty: 450 1RF Rx Instructions: 500 mg PO Take 3 tablets in the morning, take 2 tablets in the evening.; semaglutide 0.25 mg or 0.5 mg (2 mg/3 mL) pen injector 0.25 mg subcut QWEEK Qty: 9 3RF Rx Instructions: for 4 weeks Stand Alone Forms: [facility]
--- OUTSIDE RECORDS SUMMARY | 2024-05-18 16:56 | XMS_ITS | Encounter Summary ---
Author Organization [facility] Address [address] [place] [address] Care Team Providers Care Mid Level Java Developer Name Role Phone Elsewhere, Pcp Primary Care Provider Unavailabl e Encounter Details Date Type Department Care Team (Late st Contact Info) Description 09/14/2005 Historical Ophthalmology [facility]ST [facility] Trino Ron M.D. 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
--- OUTSIDE RECORDS SUMMARY | 2024-05-18 16:56 | XMS_ITS | Encounter Summary ---
Author Organization [facility] Address [address] [place] [address] Care Team Providers Care Psychiatric Nursing Assistant Name Role Phone Elsewhere, Pcp Primary Care Provider Unavailabl e Encounter Details Date Type Department Care Team (Late st Contact Info) Description 07/14/2005 Historical Ophthalmology [facility] Trino Ron M.D. 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
--- OUTSIDE RECORDS SUMMARY | 2024-05-18 16:56 | XMS_ITS | Encounter Summary ---
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 - 01/18/2006 12:00 AM CST Eye Subsequent Visit HISTORY OF PRESENT ILLNESS Proparacaine left eye. Laser left eye. CDM Reports - EYESV Id: [id number] Status: Fnl documented in this encounter Plan of Treatment Not on file documented as of this encounter Visit Diagnoses Not on filedocumented in this encounter Care Teams Resident Care Associate Relationship Specialty Start Date End Date Elsewhere, Pcp PCP - General Family Medicine 02/17/17 documented as of this encounter
--- OUTSIDE RECORDS SUMMARY | 2024-05-18 16:56 | XMS_ITS | Encounter Summary ---
Author Organization [facility] Address [address] [place] [address] Care Team Providers Care Information Officer Name Role Phone Elsewhere, Pcp Primary Care Provider Unavailabl e Encounter Details Date Type Department Care Team (Late st Contact Info) Description 06/07/2016 Historical Ophthalmology RST OPH Benitez Yuan M.D. 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
--- OUTSIDE RECORDS SUMMARY | 2024-05-18 16:57 | XMS_ITS | Encounter Summary ---
Author Organization [facility] Address [address] [place] [address] Care Team Providers Care Dairy Science Teacher Name Role Phone Elsewhere, Pcp Primary Care Provider Unavailabl e Encounter Details Date Type Department Care Team (Late st Contact Info) Description 05/08/2014 Historical Ophthalmology RST OPH Benitez Yuan M.D. [address] [place] [address] Social History Tobacco Use Types Packs/Day Years Used Date Smoking Tobacco: Never Assessed Sex and Gender Information Value Date Recorded Sex Assigned at Male 12/14/2022 12:21 PM CDT Legal Sex Male 8:19 AM SOIL FERTILITY EXTENSION SPECIALIST Gender Identity Male 12/14/2022 12:21 PM CDT [...] refractive error CDM Reports - EYEGEN Id: [id number] Status: Fnl documented in this encounter Plan of Treatment Not on file documented as of this encounter Visit Diagnoses Not on filedocumented in this encounter Care Teams Dairy Science Teacher Relationship Specialty Start Date End Date Elsewhere, Pcp PCP - General Family Medicine 02/17/17 documented as of this encounter
--- OUTSIDE RECORDS SUMMARY | 2024-05-18 16:57 | XMS_ITS | Encounter Summary ---
Author Organization [facility] Address [address] [place] [address] Care Team Providers Care Acid Conditioning Worker Name Role Phone Elsewhere, Pcp Primary Care Provider Unavailabl e Encounter Details Date Type Department Care Team (Late st Contact Info) Description 05/23/2006 Historical Ophthalmology RST OPH Trino Ron M.D. [address] [place] [phone] Social History Tobacco Use Types Packs/Day Years Used Date Smoking Tobacco: Never Assessed Sex and Gender Information Value Date Recorded Sex Assigned at Male 12/14/2022 12:21 PM CDT Legal Sex Male 8:19 AM EMPLOYEE HEALTH RN Gender Identity Male 12/14/2022 12:21 PM CDT [...] macular edema CDM Reports - EYEGEN Id: [id number] Status: Fnl documented in this encounter Plan of Treatment Not on file documented as of this encounter Visit Diagnoses Not on filedocumented in this encounter Care Teams Acid Conditioning Worker Relationship Specialty Start Date End Date Elsewhere, Pcp PCP - General Family Medicine 02/17/17 documented as of this encounter
--- OUTSIDE RECORDS SUMMARY | 2024-05-18 16:57 | XMS_ITS | Encounter Summary ---
Author Organization [facility] Address [address] [place] [address] Care Team Providers Care Master Coastwise Yacht Name Role Phone Elsewhere, Pcp Primary Care Provider Unavailabl e Encounter Details Date Type Department Care Team (Late st Contact Info) Description 05/07/2014 Historical Ophthalmology RST OPH Benitez Yuan M.D. [address] [place] [address] Social History Tobacco Use Types Packs/Day Years Used Date Smoking Tobacco: Never Assessed Sex and Gender Information Value Date Recorded Sex Assigned at Male 12/14/2022 12:21 PM CDT Legal Sex Male 8:19 AM MANAGER REAL ESTATE Gender Identity Male 12/14/2022 12:21 PM CDT Sexual Orientation Straight 12/14/2022 12 :21 PM CDT documented as of this encounter Progress Notes * Benitez Yuan M.D. - 05/07/2014 1:18 PM CDT Eye Subsequent Visit HISTORY OF PRESENT ILLNESS Patient returns for photos IMPRESSION / REPORT / PLAN The following tests have been completed and need interpretation. OCT macula CDM Reports - EYESV Id: [id number] Status: Fnl documented in this encounter Plan of Treatment Not on file documented as of this encounter Visit Diagnoses Not on filedocumented in this encounter Care Teams Master Coastwise Yacht Relationship Specialty Start Date End Date Elsewhere, Pcp PCP - General Family Medicine 02/17/17 documented as of this encounter
--- OUTSIDE RECORDS SUMMARY | 2024-05-18 16:57 | XMS_ITS | Clinical Summary ---
Author Organization [facility] Address [address] [place] [address] Care Team Providers Care Block Machine Operator Name Role Phone Elsewhere, Pcp Primary Care Provider Unavailabl e Source Comments Patient records contain information from all sites at [facility]. For routine questions regarding patient records, call [phone] during business hours, M-F 8:00 AM - 5:00 PM Central Time. Record requests for emergency care only can be directed to [phone] at any time.[facility] Allergies No known active allergies Medications aspirin [...] Tobacco: Never Tobacco Cessation:Counseling Given: Not Answered [facility] Utilities Answer Date Recorded In the past 12 months has [employer], gas, oil, or water company threatened to [...] your living situation today? 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
--- OUTSIDE RECORDS SUMMARY | 2024-05-18 16:57 | XMS_ITS | Encounter Summary ---
Author Organization [facility] Address [address] [place] [address] Care Team Providers Care Director Of Corporate Communications Name Role Phone Elsewhere, Pcp Primary Care Provider Unavailabl e Encounter Details Date Type Department Care Team (Late st Contact Info) Description 09/08/2016 Historical Ophthalmology RST OPH Benitez Yuan M.D. [address] [place] [address] Social History Tobacco Use Types Packs/Day Years Used Date Smoking Tobacco: Never Assessed Sex and Gender Information Value Date Recorded Sex Assigned at Male 12/14/2022 12:21 PM CDT Legal Sex Male 8:19 AM GROCERY BAGGER Gender Identity Male 12/14/2022 12:21 PM CDT [...] refractive error CDM Reports - EYEGEN Id: [id number] Status: Fnl documented in this encounter Plan of Treatment Not on file documented as of this encounter Visit Diagnoses Not on filedocumented in this encounter Care Teams Director Of Corporate Communications Relationship Specialty Start Date End Date Elsewhere, Pcp PCP - General Family Medicine 02/17/17 documented as of this encounter
--- OUTSIDE RECORDS SUMMARY | 2024-05-18 16:57 | XMS_ITS | Encounter Summary ---
Author Organization [facility] Address [address] [place] [address] Care Team Providers Care Pressure Testing Technician Name Role Phone Elsewhere, Pcp Primary Care Provider Unavailabl e Encounter Details Date Type Department Care Team (Late st Contact Info) Description 08/06/2014 Historical Ophthalmology RST OPH Benitez Yuan M.D. [address] [place] [address] Social History Tobacco Use Types Packs/Day Years Used Date Smoking Tobacco: Never Assessed Sex and Gender Information Value Date Recorded Sex Assigned at Male 12/14/2022 12:21 PM CDT Legal Sex Male 8:19 AM SAGGER PREPARER Gender Identity Male 12/14/2022 12:21 PM CDT [...] 7.1 on 02/19/14, Blood sugar this am [id number]. Denies blurred vision, light flashes, floaters, ocular [...] refractive error CDM Reports - EYEGEN Id: [id number] Status: Fnl documented in this encounter Plan of Treatment Not on file documented as of this encounter Visit Diagnoses Not on filedocumented in this encounter Care Teams Pressure Testing Technician Relationship Specialty Start Date End Date Elsewhere, Pcp PCP - General Family Medicine 02/17/17 documented as of this encounter
--- OUTSIDE RECORDS SUMMARY | 2024-05-18 16:57 | XMS_ITS | Clinical Summary ---
Author Organization [employer] [facility] Address [address] [place] [id number] Care Team Providers Care Registrar Museum Name Role Phone Suleiman Barajas MD Primary Care Provider [phone] Medications aspirin (ECOTRIN) 81 mg enteric coated [...] on file Legal Sex Male 7:52 PM STEAMER BLOCKER Gender Identity Not on file Sexual Orientation [...] BLUE CROSS MEDICARE ADVANTAGE MR Care Teams Registrar Museum Relationship Specialty Start Date End Date Suleiman Barajas MD [address] [place] [address] PCP - General Internal Medicine 08/17/17
--- OUTSIDE RECORDS SUMMARY | 2024-05-18 16:57 | XMS_ITS | Encounter Summary ---
Author Organization [facility] Address [address] [place] [address] Care Team Providers Care Applications Development Consultant Name Role Phone Elsewhere, Pcp Primary Care Provider Unavailabl e Encounter Details Date Type Department Care Team (Late st Contact Info) Description 01/18/2006 Historical Ophthalmology RST OPH Trino Ron M.D. [address] [place] [phone] Social History Tobacco Use Types Packs/Day Years Used Date Smoking Tobacco: Never Assessed Sex and Gender Information Value Date Recorded Sex Assigned at Male 12/14/2022 12:21 PM CDT Legal Sex Male 8:19 AM LATHING SUPERVISOR Gender Identity Male 12/14/2022 12:21 PM [...] edema L>R CDM Reports - EYEGEN Id: [id number] Status: Fnl documented in this encounter Plan of Treatment Not on file documented as of this encounter Visit Diagnoses Not on filedocumented in this encounter Care Teams Applications Development Consultant Relationship Specialty Start Date End Date Elsewhere, Pcp PCP - General Family Medicine 02/17/17 documented as of this encounter
--- OUTSIDE RECORDS SUMMARY | 2024-05-18 16:57 | XMS_ITS | Encounter Summary ---
Author Organization [facility] Address [address] [place] [address] Care Team Providers Care Stock Buyer Name Role Phone Elsewhere, Pcp Primary Care Provider Unavailabl e Encounter Details Date Type Department Care Team (Late st Contact Info) Description 11/16/2005 Historical Ophthalmology RST OPH Trino Ron M.D. [address] [place] [phone] Social History Tobacco Use Types Packs/Day Years Used Date Smoking Tobacco: Never Assessed Sex and Gender Information Value Date Recorded Sex Assigned at Male 12/14/2022 12:21 PM CDT Legal Sex Male 8:19 AM CHECK GRADER Gender Identity Male 12/14/2022 12:21 PM CDT [...] edema L>R CDM Reports - EYEGEN Id: [id number] Status: Fnl documented in this encounter Plan of Treatment Not on file documented as of this encounter Visit Diagnoses Not on filedocumented in this encounter Care Teams Stock Buyer Relationship Specialty Start Date End Date Elsewhere, Pcp PCP - General Family Medicine 02/17/17 documented as of this encounter
--- OUTSIDE RECORDS SUMMARY | 2024-05-18 16:57 | XMS_ITS | Encounter Summary ---
Author Organization [facility] Address [address] [place] [address] Care Team Providers Care Second Ride Fare Collector Name Role Phone Elsewhere, Pcp Primary Care Provider Unavailabl e Encounter Details Date Type Department Care Team (Late st Contact Info) Description 03/10/2016 Historical Ophthalmology RST OPH Benitez Yuan M.D. [address] [place] [address] Social History Tobacco Use Types Packs/Day Years Used Date Smoking Tobacco: Never Assessed Sex and Gender Information Value Date Recorded Sex Assigned at Male 12/14/2022 12:21 PM CDT Legal Sex Male 8:19 AM TRANSPORTATION DISPATCHER Gender Identity Male 12/14/2022 12:21 PM CDT [...] refractive error CDM Reports - EYEGEN Id: [id number] Status: Fnl documented in this encounter Plan of Treatment Not on file documented as of this encounter Visit Diagnoses Not on filedocumented in this encounter Care Teams Second Ride Fare Collector Relationship Specialty Start Date End Date Elsewhere, Pcp PCP - General Family Medicine 02/17/17 documented as of this encounter
--- OUTSIDE RECORDS SUMMARY | 2024-05-18 16:57 | XMS_ITS | Encounter Summary ---
Author Organization [facility] Address [address] [place] [address] Care Team Providers Care Patient Registrar Name Role Phone Elsewhere, Pcp Primary Care Provider Unavailabl e Encounter Details Date Type Department Care Team (Late st Contact Info) Description 07/20/2016 Historical Ophthalmology RST OPH Benitez Yuan M.D. [address] [place] [address] Social History Tobacco Use Types Packs/Day Years Used Date Smoking Tobacco: Never Assessed Sex and Gender Information Value Date Recorded Sex Assigned at Male 12/14/2022 12:21 PM CDT Legal Sex Male 8:19 AM ORNAMENTAL BRONZE WORKER Gender Identity Male 12/14/2022 12:21 PM [...] refractive error CDM Reports - EYEGEN Id: [id number] Status: Fnl documented in this encounter Plan of Treatment Not on file documented as of this encounter Visit Diagnoses Not on filedocumented in this encounter Care Teams Patient Registrar Relationship Specialty Start Date End Date Elsewhere, Pcp PCP - General Family Medicine 02/17/17 documented as of this encounter
--- OUTSIDE RECORDS SUMMARY | 2024-05-18 16:57 | XMS_ITS | Encounter Summary ---
Author Organization [facility] Address [address] [place] [address] Care Team Providers Care Delivery Agent Name Role Phone Elsewhere, Pcp Primary Care Provider Unavailabl e Encounter Details Date Type Department Care Team (Late st Contact Info) Description 05/10/2017 Historical Ophthalmology RST OPH Benitez Yuan M.D. [address] [place] [address] Social History Tobacco Use Types Packs/Day Years Used Date Smoking Tobacco: Never Assessed Sex and Gender Information Value Date Recorded Sex Assigned at Male 12/14/2022 12:21 PM CDT Legal Sex Male 8:19 AM SENIOR WEB ARCHITECT Gender Identity Male 12/14/2022 12:21 PM CDT [...] refractive error CDM Reports - EYEGEN Id: [id number] Status: Fnl documented in this encounter Plan of Treatment Not on file documented as of this encounter Visit Diagnoses Not on filedocumented in this encounter Care Teams Delivery Agent Relationship Specialty Start Date End Date Elsewhere, Pcp PCP - General Family Medicine 02/17/17 documented as of this encounter
[2024-05-18 17:08] LABS: Chloride* 104 mmol/L (96-114); Sodium* 141 mmol/L (135-149)
[2024-05-18 17:09] LABS: Potassium* 4.3 mmol/L (3.6-5.1)
[2024-05-18 17:11] LABS: Alanine Aminotransferase* 46 U/L (4-50); Alkaline Phosphatase* 82 U/L (40-150); Anion Gap 15 mEq/L (7-15); Aspartate Amino Transferase* 47 U/L (12-35); Bilirubin Direct* 0.5 mg/dL (0.0-0.5); Bilirubin Total* 1.2 mg/dL (0.1-1.5); Blood Urea Nitrogen* 22 mg/dL (7-30); Calcium* 9.5 mg/dL (8.4-10.6); Carbon Dioxide* 22 mmol/L (20-32); Creatinine* 1.2 mg/dL (0.5-1.5); Est. Creatinine Clearance* 55.78; Estimated Glomerular Filt Rate 63 ml/min; Glucose* 188 mg/dL (60-115); Lipase* 80 U/L (23-300); Total Protein* 7.8 g/dL (6.0-8.3)
[2024-05-18 17:16] LABS: WBC Urine 0-2 (0-5)
[2024-05-18 17:19] LABS: C Reactive Protein* < 0.5 mg/dL (0.5-1.0)
[2024-05-18 17:59] VITALS: BP 120/67; PULSE 85; RESP 16; TEMP 36.7; O2SAT 98
--- NOTE | 2024-05-18 18:25 | CRLHL7_ITS ---
For Patients: As a result of the Century Cures Act, medical imaging exams and procedure reports are released immediately into your electronic medical record. You may view this report before your referring provider. If you have questions, please contact your health care provider. INDICATION: . IF STONE PASSED,PT IS NOT HAVING PAIN ANYMORE TECHNIQUE: CT abdomen and pelvis without contrast. COMPARISON: Same day. FINDINGS: Lower chest: Basilar peripheral subpleural linear articulation. ABDOMEN: Liver: Normal attenuation. Gallbladder and biliary: Cholelithiasis. Normal caliber bile ducts. Spleen: Normal size and attenuation. Pancreas: The noncontrast pancreas is homogeneous in attenuation without peripancreatic inflammatory changes or ductal dilatation. Adrenal glands: Normal adrenal glands. Kidneys and ureters: Contrast opacifies the renal collecting systems. There is contrast external to the left ureter suggesting underlying ureteral injury. Persistent prominence/borderline left-sided hydroureteronephrosis. Distal left 2 millimeter ureteral stone is likely unchanged in position. GI tract: Stomach is partially distended with fluid and air. Normal caliber small and large bowel loops. Normal appendix. Vascular structures: Normal caliber aorta with atherosclerotic calcifications. Lymph nodes: No lymphadenopathy in the abdomen or pelvis by size criteria. Peritoneum: No free air or focal drainable collection. PELVIS: Genitourinary system: Urinary bladder is partially distended with contrast. No discrete filling defects. SKELETAL STRUCTURES AND SOFT TISSUES: Grade 1 anterolisthesis of L5 on S1 secondary to bilateral L5 pars defects. Multilevel lumbar spondylosis. IMPRESSION: There is contrast external to the left ureter suggesting underlying ureteral injury. Persistent prominence/borderline left-sided hydroureteronephrosis. Distal left 2 millimeter ureteral stone is likely unchanged in position. Please note that all CT scans at this facility use dose modulation, iterative reconstruction, and/or weight-based dosing when appropriate to reduce radiation dose to as low as reasonably achievable. Dictated by Douglas Lopez MD @ 05/18/2024 7:28:28 PM (Electronically Signed)
[2024-05-18] MEDS: cefTRIAXone 1 GM in 0.9 % SODIUM CHLORIDE Mini-bag 100 ML IVPB (19:59)
[2024-05-18] MEDS: METOCLOPRAMIDE HCL 10 MG in 0.9 % SODIUM CHLORIDE 100 ml 100 ML 306 MG IVPB (20:13)
[2024-05-18 20:15] VITALS: BP 135/79; PULSE 85; RESP 16; TEMP 36.7; O2SAT 96
[2024-05-18 20:42] LABS: Lactate Sepsis w/Reflex* 2.1 mmol/L (0.5-1.9)
[2024-05-18 21:19] LABS: Procalcitonin* 0.06 ng/mL (<0.50)
[2024-05-18 21:42] VITALS: BP 135/82; PULSE 79; RESP 16; O2SAT 95
[2024-05-19 00:05] VITALS: BP 130/68; PULSE 86; RESP 16; TEMP 37.1; O2SAT 98
== END 2024-05-19 00:08 | disposition short-term general hospital (02) ==
PROVIDERS: Emergency Provider Emergency Medicine; PCP Internal Medicine
DX: N20.1 Calculus of ureter (principal); N10 Acute pyelonephritis; S37.10XA Unspecified injury of ureter, initial encounter
CPT/HCPCS: 36415; 74176; 74177; 76705; 80048; 80076; 81001; 83605; 83690; 84145; 85025; 86140; 87040; 96365; 96366; 99285; J0696; J2270; J2405; J2765; J7030; Q9967

== ENCOUNTER 2024-05-19 | Outpatient (CLI) | payer MEDICARE, SELFPAY | END 2024-05-19 00:01 | disposition home or self-care (01) | LOC: AMB 05-21 10:43 | PROVIDERS: PCP Internal Medicine; Visit Provider Emergency Medicine | DX: N20.1 Calculus of ureter (principal); N12 Tubulo-interstitial nephritis, not specified as acute or chronic; S37.10XA Unspecified injury of ureter, initial encounter | CPT/HCPCS: A0425; A0427 ==

== ENCOUNTER 2024-06-01 08:45 | Outpatient (CLI) | payer MEDICARE, SELFPAY ==
--- NOTE | 2024-06-01 09:00 | CRLHL7_ITS ---
For Patients: As a result of the Century Cures Act, medical imaging exams and procedure reports are released immediately into your electronic medical record. You may view this report before your referring provider. If you have questions, please contact your health care provider. Indication: Solitary pulmonary nodule Technique: Noncontrast CT of the chest with multiplanar reformats. Comparison: CT abdomen pelvis performed 05/18/2024 Findings: Lungs: Multiple pulmonary nodules noted. There is a 14 x 8 millimeter nodule noted within the right lower lobe, out of field of view of the prior examinations. Additional scattered smaller pulmonary nodules noted. Pulmonary fibrotic changes suspicious for an interstitial lung disease noted. Mediastinum: Calcified coronary arterial and aortic atherosclerosis. Lymph nodes: No gross lymphadenopathy. Upper abdomen: Cholelithiasis. Possible partially visualized left renal pelvis stone. Soft tissues: Unremarkable. Bones: Degenerative changes of the spine and shoulders. Impression: 1. Multiple pulmonary nodules are noted. A large nodule measuring 11 millimeters, out of field of view of prior examinations, is noted within the right lower lobe. Recommend follow-up CT in 3 months, PET-CT, or tissue sampling. 2. Suspect pulmonary fibrosis. Consider high-resolution chest CT for further characterization. 3. Calcified coronary arterial and aortic atherosclerosis. Please note that all CT scans at this facility use dose modulation, iterative reconstruction, and/or weight-based dosing when appropriate to reduce radiation dose to as low as reasonably achievable. Dictated by Kelvin Clark MD @ 06/02/2024 6:22:11 PM (Electronically Signed)
== END 2024-06-01 08:46 | disposition home or self-care (01) ==
LOC: CT 08:46
PROVIDERS: PCP Internal Medicine; Visit Provider Internal Medicine
DX: R91.1 Solitary pulmonary nodule (principal); I25.10 Atherosclerotic heart disease of native coronary artery without angina pectoris; I70.0 Atherosclerosis of aorta
CPT/HCPCS: 71250

== ENCOUNTER 2024-10-09 09:29 | Emergency (ER) | payer MEDICARE, SELFPAY ==
[2024-10-09] VITALS (11 sets, daily range): BP systolic 130–150; BP diastolic 67–76; PULSE 67–84; RESP 15–24; TEMP 37.3; O2SAT 94–97; BMI 23.0
--- OUTSIDE RECORDS SUMMARY | 2024-10-09 09:31 | XMS_ITS | Encounter Summary ---
Author Organization [facility] Address [address] [place] [address] Care Team Providers Care Irrigator Sprinkling System Name Role Phone Elsewhere, Pcp Primary Care Provider Unavailabl e Encounter Details Date Type Department Care Team (Late st Contact Info) Description 06/07/2016 Historical Ophthalmology RST OPH Benitez Yuan M.D. [address] [place] [address] Social History Tobacco Use Types Packs/Day Years Used Date Smoking Tobacco: Never Assessed Sex and Gender Information Value Date Recorded Sex Assigned at Male 12/14/2022 12:21 PM CDT Legal Sex Male 8:19 AM REPORTING COORDINATOR Gender Identity Male 12/14/2022 12:21 PM CDT [...] refractive error CDM Reports - EYEGEN Id: [id number] Status: Fnl documented in this encounter Plan of Treatment Upcoming Encounters Date Type Department Care Team (Latest Contact Info) Description 12/05/2024 8:45 AM CDT Clinical Communication Virtual Review in [place], [place] [address] [place] [phone] 12/07/2024 11:15 AM CDT Appointment Department of Radiology, [facility], in [place], [place] [address] [place] [phone] Destini Claudio M.D. [address] [place] [phone] 12/07/2024 4:30 PM CDT Office Visit Division of Pulmonary Medicine in [place], [place] [address] [place] [phone] Destini Claudio M.D. [address] [place] [address] documented as of this encounter Visit Diagnoses Not on filedocumented in this encounter Care Teams Irrigator Sprinkling System Relationship Specialty Start Date End Date Elsewhere, Pcp PCP - General Family Medicine 02/17/17 documented as of this encounter
--- OUTSIDE RECORDS SUMMARY | 2024-10-09 09:31 | XMS_ITS | Encounter Summary ---
Author Organization [facility] Address [address] [place] [address] Care Team Providers Care Plasterer Spot Name Role Phone Elsewhere, Pcp Primary Care Provider Unavailabl e Encounter Details Date Type Department Care Team (Late st Contact Info) Description 09/08/2016 Historical Ophthalmology RST OPH Benitez Yuan M.D. [address] [place] [address] Social History Tobacco Use Types Packs/Day Years Used Date Smoking Tobacco: Never Assessed Sex and Gender Information Value Date Recorded Sex Assigned at Male 12/14/2022 12:21 PM CDT Legal Sex Male 8:19 AM MANAGER HOSPITAL Gender Identity Male 12/14/2022 12:21 PM CDT [...] refractive error CDM Reports - EYEGEN Id: [id number] Status: Fnl documented in this encounter Plan of Treatment Upcoming Encounters Date Type Department Care Team (Latest Contact Info) Description 12/05/2024 8:45 AM CDT Clinical Communication Virtual Review in [place], [place] 200 [place] [address] 12/07/2024 11:15 AM CDT Appointment Department of Radiology, [facility], in [place], [place] [address] [place] [phone] Destini Claudio M.D. [address] [place] [phone] 12/07/2024 4:30 PM CDT Office Visit Division of Pulmonary Medicine in [place], [place] [address] [place] [address] Destini Claudio M.D. [address] [place] [phone] documented as of this encounter Visit Diagnoses Not on filedocumented in this encounter Care Teams Plasterer Spot Relationship Specialty Start Date End Date Elsewhere, Pcp PCP - General Family Medicine 02/17/17 documented as of this encounter
--- OUTSIDE RECORDS SUMMARY | 2024-10-09 09:31 | XMS_ITS | Encounter Summary ---
Author Organization [facility] Address [address] [place] [address] Care Team Providers Care Toll Gate Tender Name Role Phone Elsewhere, Pcp Primary Care Provider Unavailabl e Encounter Details Date Type Department Care Team (Late st Contact Info) Description 11/16/2005 Historical Ophthalmology RST OPH Trino Ron M.D. [address] [place] [phone] Social History Tobacco Use Types Packs/Day Years Used Date Smoking Tobacco: Never Assessed Sex and Gender Information Value Date Recorded Sex Assigned at Male 12/14/2022 12:21 PM CDT Legal Sex Male 8:19 AM CLAIM INSPECTOR Gender Identity Male 12/14/2022 12:21 PM CDT [...] edema L>R CDM Reports - EYEGEN Id: [id number] Status: Fnl documented in this encounter Plan of Treatment Upcoming Encounters Date Type Department Care Team (Latest Contact Info) Description 12/05/2024 8:45 AM CDT Clinical Communication Virtual Review in [place], [place] [address] [place] [address] 12/07/2024 11:15 AM CDT Appointment Department of Radiology, [facility], in [place], [place] [address] [place] [phone] Destini Claudio M.D. [address] [place] [phone] 12/07/2024 4:30 PM CDT Office Visit Division of Pulmonary Medicine in [address] [phone] Destini Claudio M.D. [address] [place] [phone] documented as of this encounter Visit Diagnoses Not on filedocumented in this encounter Care Teams Toll Gate Tender Relationship Specialty Start Date End Date Elsewhere, Pcp PCP - General Family Medicine 02/17/17 documented as of this encounter
--- OUTSIDE RECORDS SUMMARY | 2024-10-09 09:31 | XMS_ITS | Encounter Summary ---
Author Organization [facility] Address [address] [place] [address] Care Team Providers Care Oil Tank Car Cleaner Name Role Phone Elsewhere, Pcp Primary Care Provider Unavailabl e Encounter Details Date Type Department Care Team (Late st Contact Info) Description 01/18/2006 Historical Ophthalmology RST OPH Deborah Hernández, C.O.A. Social History Tobacco Use Types Packs/Day Years Used Date Smoking Tobacco: Never Assessed Sex and Gender Information Value Date Recorded Sex Assigned at Male 12/14/2022 12:21 PM CDT Legal Sex Male 8:19 AM SKIN DIVER Gender Identity Male 12/14/2022 12:21 PM CDT Sexual Orientation Straight 12/14/2022 12 :21 PM CDT documented as of this encounter Progress Notes * Deborah Hernández, C.O.A. - 01/18/2006 12:00 AM CST Eye Subsequent Visit HISTORY OF PRESENT ILLNESS Proparacaine left eye. Laser left eye. CDM Reports - EYESV Id: [id number] Status: Fnl documented in this encounter Plan of Treatment Upcoming Encounters Date Type Department Care Team (Latest Contact Info) Description 12/05/2024 8:45 AM CDT Clinical Communication Virtual Review in [place], [place] [address] [place] [address] 12/07/2024 11:15 AM CDT Appointment Department of Radiology, [facility], in [place], [place] [address] [place] [address] Destini Claudio M.D. [address] [place] [phone] 12/07/2024 4:30 PM CDT Office Visit Division of Pulmonary Medicine in [place], [place] [address] [place] [address] Destini Claudio M.D. [address] [place] [phone] documented as of this encounter Visit Diagnoses Not on filedocumented in this encounter Care Teams Oil Tank Car Cleaner Relationship Specialty Start Date End Date Elsewhere, Pcp PCP - General Family Medicine 02/17/17 documented as of this encounter
--- OUTSIDE RECORDS SUMMARY | 2024-10-09 09:31 | XMS_ITS | Encounter Summary ---
Author Organization [facility] Address [address] [place] [address] Care Team Providers Care Parts Data Writer Name Role Phone Elsewhere, Pcp Primary Care Provider Unavailabl e Encounter Details Date Type Department Care Team (Late st Contact Info) Description 01/18/2006 Historical Ophthalmology RST OPH Trino Ron M.D. [address] [place] [phone] Social History Tobacco Use Types Packs/Day Years Used Date Smoking Tobacco: Never Assessed Sex and Gender Information Value Date Recorded Sex Assigned at Male 12/14/2022 12:21 PM CDT Legal Sex Male 8:19 AM DIRECTOR CARDIOLOGY Gender Identity Male 12/14/2022 12:21 PM CDT [...] edema L>R CDM Reports - EYEGEN Id: [id number] Status: Fnl documented in this encounter Plan of Treatment Upcoming Encounters Date Type Department Care Team (Latest Contact Info) Description 12/05/2024 8:45 AM CDT Clinical Communication Virtual Review in [place], [place] 200 [place] [address] 12/07/2024 11:15 AM CDT Appointment Department of Radiology, [facility], in [address] [phone] Destini Claudio M.D. [address] [place] [phone] 12/07/2024 4:30 PM CDT Office Visit Division of Pulmonary Medicine in [address] [phone] Destini Claudio M.D. [address] [place] [phone] documented as of this encounter Visit Diagnoses Not on filedocumented in this encounter Care Teams Parts Data Writer Relationship Specialty Start Date End Date Elsewhere, Pcp PCP - General Family Medicine 02/17/17 documented as of this encounter
--- OUTSIDE RECORDS SUMMARY | 2024-10-09 09:31 | XMS_ITS | Encounter Summary ---
Author Organization [facility] Address [address] [place] [address] Care Team Providers Care Optical Manager Name Role Phone Elsewhere, Pcp Primary Care Provider Unavailabl e Encounter Details Date Type Department Care Team (Late st Contact Info) Description 05/23/2006 Historical Ophthalmology RST OPH Trino Ron M.D. [address] [place] [phone] Social History Tobacco Use Types Packs/Day Years Used Date Smoking Tobacco: Never Assessed Sex and Gender Information Value Date Recorded Sex Assigned at Male 12/14/2022 12:21 PM CDT Legal Sex Male 8:19 AM COMMUNICATIONS AGENT Gender Identity Male 12/14/2022 12:21 PM CDT [...] macular edema CDM Reports - EYEGEN Id: [id number] Status: Fnl documented in this encounter Plan of Treatment Upcoming Encounters Date Type Department Care Team (Latest Contact Info) Description 12/05/2024 8:45 AM CDT Clinical Communication Virtual Review in [place], [place] 200 [place] [address] 12/07/2024 11:15 AM CDT Appointment Department of Radiology, [facility], in [place], [place] [address] [place] [phone] Destini Claudio M.D. [address] [place] [phone] 12/07/2024 4:30 PM CDT Office Visit Division of Pulmonary Medicine in [address] [phone] Destini Claudio M.D. [address] [place] [phone] documented as of this encounter Visit Diagnoses Not on filedocumented in this encounter Care Teams Optical Manager Relationship Specialty Start Date End Date Elsewhere, Pcp PCP - General Family Medicine 02/17/17 documented as of this encounter
--- OUTSIDE RECORDS SUMMARY | 2024-10-09 09:31 | XMS_ITS | Clinical Summary ---
Author Organization [facility] Address [address] [place] [address] Care Team Providers Care Utility Bill Collection Clerk Name Role Phone Elsewhere, Pcp Primary Care Provider Unavailabl e Source Comments Patient records contain information from all sites at [facility]. For routine questions regarding patient records, call [phone] during business hours, M-F 8:00 AM - 5:00 PM Central Time. Record requests for emergency care only can be directed to [phone] at any time.[facility] Allergies No known active allergies Medications aspirin [...] diagnostic strips every other day. 7 Active Ozempic 0.25 mg or 0.5 mg (2 mg/3 mL) injection Inject 0.25 mg under the skin every 7 (seven) days. 3 Active Hospital, Clinic, or Other Facility Administered [...] Packs/Day Years Used Date Smoking Tobacco: Never Passive Smoke Exposure: Never Smokeless Tobacco: Never Tobacco Cessation:Counseling Given: Not Answered Alcohol Use Standard Drinks/Week Comments Never 0 (1 standard drink = 0.6 oz pur e alcohol) [facility] Utilities Answer Date Recorded In the past 12 months has e [employer], gas, oil, or water company threatened to shut off services in your home? No 06/14/2024 Hunger Vital Sign Answer Date Recorded Within the past 12 months, y ou worried that your food would run out before you got the money to buy more. Never true 06/15/19 25 Within the past 12 months, t he food you bought just didn't last and you didn't have money to get more. Never true 06/14/2024 PRAPARE - Transportation Answer Date Re corded In the past 12 months, has l ack of transportation kept you from medical appointments or from getting medications? No 05/29 In the past 12 months, has l ack of transportation kept you from meetings, work, or from getting things needed for daily living? No 06/14/2024 Housing Stability Answer Date Recorded What is your living situation today? 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 Gender Identity Male 12/14/2022 12:21 PM CDT Sexual Orientation Straight 12/14/2022 12 :21 PM CDT Last Filed Vital Signs Vital Sign Reading Time Taken Comments Blood Pressure 144/77 06/29/2024 2:46 PM CDT Pulse 82 06/29/2024 2:46 PM CDT Temperature 35.8 C (96.4 F) 06/29/2024 2:46 PM CDT Respiratory Rate - - Oxygen Saturation 97% 06/29/2024 2:46 PM CDT Inhaled Oxygen Concentration - - Weight 76 kg (167 lb 8.8 oz) 06/29/2024 2:46 PM CDT Height 181 cm (5' 11.26) 06/29/2024 2:46 PM CDT Body Mass Index 23.2 06/29/2024 2:46 PM CDT Plan of Treatment Upcoming Encounters Date Type Department Care Team (Latest Contact Info) Description 12/05/2024 8:45 AM CDT Clinical Communication Virtual Review in [place], [place] [address] [place] [address] 12/07/2024 11:15 AM CDT Appointment Department of Radiology, [facility], in [place], [place] [address] [place] [address] Destini Claudio M.D. [address] [place] [phone] 12/07/2024 4:30 PM CDT Office Visit Division of Pulmonary Medicine in [place], [place] [address] [place] [address] Destini Claudio M.D. [address] [place] [phone] Health Maintenance Due Date Last Done Comments Diabetic Office Visit with Foot Exam 1945 Hemoglobin A1C 1947 Hepatitis C Screening 1945 Urine Albumin 1945 Zoster Vaccines (1 of 2) 07/03/1997 Hepatitis B Vaccines (1 of 3 - Risk 3-dose series) 2007 Pneumococcal vaccine (50+ years) (3 of 3 - PCV20 or PCV21) 08/21/2019 08/20/2014, 12/06/2006 Depression Screening (Annual PHQ-2) 02/29/2024 Fall Risk Screen (Annual) 02/29/2024 COVID-19 Vaccine ( season) 2024 11/24/2023, 12/11/2022, 12/11/2021, Additional history exists Diabetic Eye Exam 05/25/2024 05/26/2023 Office Visit for Blood Pressure Check / Re-check 09/29/2024 06/29/2024 Influenza Vaccine (#1) 2024 , 11/25/2022, 12/11/2021, Additional history exists Creatinine Level (Kidney Function Test) 05/20/2025 05/20/2024, 05/19/2024 Potassium Level 05/20/2025 05/20/2024, 05/19/2024 Sodium Level 05/20/2025 05/20/2024, 05/19/2024 DTaP,Tdap,and Td Vaccines (3 - Td or Tdap) 03/08/2032 03/08/2022, 07/21/2012 Colonoscopy Discontinued 02/28/2017 Colorectal Cancer Screening Discontinued RSV vaccine - (32-36 weeks) or 60+ years Completed 02/07/2023 CT Colonography Discontinued Cologuard Discontinued FIT Discontinued IPV Vaccines Aged Out No longer eligi ble based on patient's age to complete this topic Medical Devices Implanted Type Area Baggagemaster Device Identifier Shelf Expiration Date Model / Serial / Lot Bilateral Ocular Lens Ocular Lens Bilateral : Eye Insurance [facility] Care Teams Utility Bill Collection Clerk Relationship Specialty Start Date End Date Elsewhere, Pcp PCP - General Family Medicine 02/17/17
--- OUTSIDE RECORDS SUMMARY | 2024-10-09 09:31 | XMS_ITS | Encounter Summary ---
Author Organization [facility] Address [address] [place] [address] Care Team Providers Care Materials Engineering Technician Name Role Phone Elsewhere, Pcp Primary Care Provider Unavailabl e Encounter Details Date Type Department Care Team (Late st Contact Info) Description 07/14/2005 Historical Ophthalmology RST OPH Trino Ron M.D. [address] [place] [phone] Social History Tobacco Use Types Packs/Day Years Used Date Smoking Tobacco: Never Assessed Sex and Gender Information Value Date Recorded Sex Assigned at Male 12/14/2022 12:21 PM CDT Legal Sex Male 8:19 AM BIG DATA LEAD Gender Identity Male 12/14/2022 12:21 PM CDT [...] edema L>R CDM Reports - EYEGEN Id: [id number] Status: Fnl documented in this encounter Plan of Treatment Upcoming Encounters Date Type Department Care Team (Latest Contact Info) Description 12/05/2024 8:45 AM CDT Clinical Communication Virtual Review in [place], [place] 200 [place] [address] 12/07/2024 11:15 AM CDT Appointment Department of Radiology, [facility], in [place], [place] [address] [place] [phone] Destini Claudio M.D. [address] [place] [phone] 12/07/2024 4:30 PM CDT Office Visit Division of Pulmonary Medicine in [address] [phone] Destini Claudio M.D. [address] [place] [phone] documented as of this encounter Visit Diagnoses Not on filedocumented in this encounter Care Teams Materials Engineering Technician Relationship Specialty Start Date End Date Elsewhere, Pcp PCP - General Family Medicine 02/17/17 documented as of this encounter
--- OUTSIDE RECORDS SUMMARY | 2024-10-09 09:31 | XMS_ITS | Encounter Summary ---
Author Organization [facility] Address [address] [place] [address] Care Team Providers Care Boat Assembler Name Role Phone Elsewhere, Pcp Primary Care Provider Unavailabl e Encounter Details Date Type Department Care Team (Late st Contact Info) Description 09/14/2005 Historical Ophthalmology RST OPH Trino Ron M.D. 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 [address] [place] [phone] 12/07/2024 4:30 PM CDT Office Visit Division of Pulmonary Medicine in [address] [phone] Destini Claudio M.D. [address] [place] [phone] documented as of this encounter Visit Diagnoses Not on filedocumented in this encounter Care Teams Boat Assembler Relationship Specialty Start Date End Date Elsewhere, Pcp PCP - General Family Medicine 02/17/17 documented as of this encounter
--- OUTSIDE RECORDS SUMMARY | 2024-10-09 09:32 | XMS_ITS | Encounter Summary ---
Author Organization [facility] Address [address] [place] [address] Care Team Providers Care Loom Fixer Apprentice Name Role Phone Elsewhere, Pcp Primary Care Provider Unavailabl e Encounter Details Date Type Department Care Team (Late st Contact Info) Description 05/08/2014 Historical Ophthalmology RST OPH Benitez Yuan M.D. [address] [place] [address] Social History Tobacco Use Types Packs/Day Years Used Date Smoking Tobacco: Never Assessed Sex and Gender Information Value Date Recorded Sex Assigned at Male 12/14/2022 12:21 PM CDT Legal Sex Male 8:19 AM OFFICE DIRECTOR Gender Identity Male 12/14/2022 12:21 PM CDT [...] refractive error CDM Reports - EYEGEN Id: [id number] Status: Fnl documented in this encounter Plan of Treatment Upcoming Encounters Date Type Department Care Team (Latest Contact Info) Description 12/05/2024 8:45 AM CDT Clinical Communication Virtual Review in [address] [phone] 12/07/2024 11:15 AM CDT Appointment Department of Radiology, [facility], in [address] [phone] Destini Claudio M.D. [address] [place] [phone] 12/07/2024 4:30 PM CDT Office Visit Division of Pulmonary Medicine in [address] [phone] Destini Claudio M.D. [address] [place] [phone] documented as of this encounter Visit Diagnoses Not on filedocumented in this encounter Care Teams Loom Fixer Apprentice Relationship Specialty Start Date End Date Elsewhere, Pcp PCP - General Family Medicine 02/17/17 documented as of this encounter
--- OUTSIDE RECORDS SUMMARY | 2024-10-09 09:32 | XMS_ITS | Encounter Summary ---
Author Organization [facility] Address [address] [place] [address] Care Team Providers Care Eligibility Manager Name Role Phone Elsewhere, Pcp Primary Care Provider Unavailabl e Encounter Details Date Type Department Care Team (Late st Contact Info) Description 05/10/2017 Historical Ophthalmology RST OPH Benitez Yuan M.D. [address] [place] [address] Social History Tobacco Use Types Packs/Day Years Used Date Smoking Tobacco: Never Assessed Sex and Gender Information Value Date Recorded Sex Assigned at Male 12/14/2022 12:21 PM CDT Legal Sex Male 8:19 AM DESKTOP SUPPORT SPECIALIST Gender Identity Male 12/14/2022 12:21 PM [...] refractive error CDM Reports - EYEGEN Id: [id number] Status: Fnl documented in this encounter Plan of Treatment Upcoming Encounters Date Type Department Care Team (Latest Contact Info) Description 12/05/2024 8:45 AM CDT Clinical Communication Virtual Review in [place], [place] 200 [place] [address] 12/07/2024 11:15 AM CDT Appointment Department of Radiology, [facility], in [place], [place] [address] [place] [phone] Destini Claudio M.D. [address] [place] [phone] 12/07/2024 4:30 PM CDT Office Visit Division of Pulmonary Medicine in [place], [place] [address] [place] [address] Destini Claudio M.D. [address] [place] [address] documented as of this encounter Visit Diagnoses Not on filedocumented in this encounter Care Teams Eligibility Manager Relationship Specialty Start Date End Date Elsewhere, Pcp PCP - General Family Medicine 02/17/17 documented as of this encounter
--- OUTSIDE RECORDS SUMMARY | 2024-10-09 09:32 | XMS_ITS | Encounter Summary ---
Author Organization [facility] Address [address] [place] [address] Care Team Providers Care Rag Willow Operator Name Role Phone Elsewhere, Pcp Primary Care Provider Unavailabl e Encounter Details Date Type Department Care Team (Late st Contact Info) Description 07/20/2016 Historical Ophthalmology RST OPH Benitez Yuan M.D. 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 [address] [place] [phone] 12/07/2024 4:30 PM CDT Office Visit Division of Pulmonary Medicine in [address] [phone] Destini Claudio M.D. [address] [place] [phone] documented as of this encounter Visit Diagnoses Not on filedocumented in this encounter Care Teams Rag Willow Operator Relationship Specialty Start Date End Date Elsewhere, Pcp PCP - General Family Medicine 02/17/17 documented as of this encounter
--- OUTSIDE RECORDS SUMMARY | 2024-10-09 09:32 | XMS_ITS | Encounter Summary ---
Author Organization [facility] Address [address] [place] [address] Care Team Providers Care Science Job Titles Name Role Phone Elsewhere, Pcp Primary Care Provider Unavailabl e Encounter Details Date Type Department Care Team (Late st Contact Info) Description 03/10/2016 Historical Ophthalmology RST OPH Benitez Yuan M.D. 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 [address] [place] [phone] 12/07/2024 4:30 PM CDT Office Visit Division of Pulmonary Medicine in [place], [place] [address] [place] [phone] Destini Claudio M.D. [address] [place] [phone] documented as of this encounter Visit Diagnoses Not on filedocumented in this encounter Care Teams Science Job Titles Relationship Specialty Start Date End Date Elsewhere, Pcp PCP - General Family Medicine 02/17/17 documented as of this encounter
--- OUTSIDE RECORDS SUMMARY | 2024-10-09 09:32 | XMS_ITS | Encounter Summary ---
Author Organization [facility] Address [address] [place] [address] Care Team Providers Care Dispatcher Tugboat Name Role Phone Elsewhere, Pcp Primary Care Provider Unavailabl e Encounter Details Date Type Department Care Team (Late st Contact Info) Description 05/07/2014 Historical Ophthalmology RST OPH Benitez Yuan M.D. 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 [address] [place] [phone] 12/07/2024 4:30 PM CDT Office Visit Division of Pulmonary Medicine in [place], [place] [address] [place] [phone] Destini Claudio M.D. [address] [place] [phone] documented as of this encounter Visit Diagnoses Not on filedocumented in this encounter Care Teams Dispatcher Tugboat Relationship Specialty Start Date End Date Elsewhere, Pcp PCP - General Family Medicine 02/17/17 documented as of this encounter
--- OUTSIDE RECORDS SUMMARY | 2024-10-09 09:32 | XMS_ITS | Clinical Summary ---
Author Organization [facility] Address [address] [place] [id number] Care Team Providers Care Deposit Clerk Name Role Phone Suleiman Barajas MD Primary Care Provider Allergies No known active allergies Medications aspirin (ECOTRIN) 81 mg enteric coated tablet Take 81 mg by mouth once daily. Active blood sugar diagnostic (BLOOD GLUCOSE TEST) strip once every other day. 7 Active ramipril (ALTACE) 10 mg capsule Take 20 mg by mouth once daily. 7 Active simvastatin (ZOCOR) 40 mg tablet Take 40 mg by mouth once daily. 7 Active Ozempic 0.25 mg or 0.5 mg (2 mg/3 mL) subcutaneous pen Inject 0.25 mg subcutaneous once weekly. 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 0 05/19/2024 Financial Resource Strain Answer Date R ecorded Difficulty of Paying Living Expenses 3 05/19/2024 Difficulty of Paying Living Expenses Not on file 05/19/2024 Food Insecurity Answer Date Recorded Do you worry your food will run out before you are able to buy more? 1 05/19/2024 Transportation Needs Answer Date Record ed Does lack of transportation keep you from medica l appointments? 1 05/19/2024 Does lack of transportation keep you from work, meetings or getting things that you need? 1 05/19/2024 Housing Stability Answer Date Recorded What is your housing situation today? 1 05/19/2024 Interpersonal Safety Answer Date Record ed Are you being hit, kicked, p ushed or yelled at (see row info)? No 05/19/2024 Interpersonal Safety Abuse 12 - 18 Not on file 05/19/2024 Interpersonal Safety Ambulatory Vulnerability No t on file 05/19/2024 Utilities Answer Date Recorded Do you have trouble paying f or utilities (for example, heat, electricity, water, phone)? 1 05/19/2024 Sex and Gender Information Value Date Recorded Sex Assigned at Not on file Legal Sex Male 7:52 PM REMELT OPERATOR Gender Identity Not on file Sexual Orientation Not on file Obstetrics History Last Filed Vital Signs Vital Sign Reading Time Taken Comments Blood Pressure 116/68 05/20/2024 8:22 AM CDT Pulse 97 05/20/2024 8:22 AM CDT Temperature 37.2 C (99 F) 05/20/2024 8:22 AM CDT Respiratory Rate 16 05/20/2024 8:22 AM CDT Oxygen Saturation 95% 05/20/2024 8:22 AM CDT Inhaled Oxygen Concentration - - Weight 78.5 kg (173 lb 1.6 oz) 05/20/2024 7:05 A M CDT Height - - Body Mass Index - - Plan of Treatment Health Maintenance Due Date Last Done Comments Tetanus booster 07/03/1958 Depression screening for age 12+ 1959 BMI (ht and wt on same day) for age 18+ 07/03/1965 Hepatitis C screening for age 18-79 07/03/1965 Pneumococcal series for age 50+ (1 of 2 - PCV) 07/03/1966 Zoster (shingles) series for age 50+ (1 of 2) 07/03/1997 Medicare Wellness for age 65+ 07/03/2012 RSV vaccine for adults or (1 - 1-dose 75+ series) 07/03/2022 COVID-19 vaccine series (2023- season) 2024 11/24/2023, 12/11/2022, 12/11/2021, Additional history exists Influenza Vaccine (#1) 2024 Hepatitis B series for 19+ Aged Out N o longer eligible based on patient's age to complete this topic Medical Devices Implanted Type Area Housing Officer Device Identifier Shelf Expiration Date Model / Serial / Lot Stent Uret [id number] Contour - [id number] Implanted:Qty: 1 on 05/19/2024 by Filemon Mendieta MD at [facility] Left: Ureter [facility] [place] Urology [id number] / / [id number] Insurance [employer] MEDICARE ADVANTAGE MR Advance Directives * Full Code (Latest Code Status on File) Date Activated Date Inactivated Comments 05/19/2024 1:37 AM 05/20/2024 4:09 PM Question Answer Comments Code Status Discussion: Reviewed Preferences * Full Code Date Activated Date Inactivated Comments 05/19/2024 1:17 AM 05/19/2024 1:37 AM Question Answer Comments Code Status Discussion: Other Care Teams Deposit Clerk Relationship Specialty Start Date End Date Suleiman Barajas MD [address] [place] [address] PCP - General Internal Medicine 08/17/17
--- OUTSIDE RECORDS SUMMARY | 2024-10-09 09:32 | XMS_ITS | Encounter Summary ---
Author Organization [facility] Address [address] [place] [address] Care Team Providers Care Cloth Shrinking Supervisor Name Role Phone Elsewhere, Pcp Primary Care Provider Unavailabl e Encounter Details Date Type Department Care Team (Late st Contact Info) Description 08/06/2014 Historical Ophthalmology RST OPH Benitez Yuan M.D. 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 Denies blurred vision, light flashes, floaters, ocular [...] refractive error CDM Reports - EYEGEN Id: [id number] Status: Fnl documented in this encounter Plan of Treatment Upcoming Encounters Date Type Department Care Team (Latest Contact Info) Description 12/05/2024 8:45 AM CDT Clinical Communication Virtual Review in [place], [place] [address] [place] [address] 12/07/2024 11:15 AM CDT Appointment Department of Radiology, [facility], in [place], [place] [address] [place] [phone] Destini Claudio M.D. [address] [place] [phone] 12/07/2024 4:30 PM CDT Office Visit Division of Pulmonary Medicine in [place], [place] [address] [place] [phone] Destini Claudio M.D. [address] [place] [phone] documented as of this encounter Visit Diagnoses Not on filedocumented in this encounter Care Teams Cloth Shrinking Supervisor Relationship Specialty Start Date End Date Elsewhere, Pcp PCP - General Family Medicine 02/17/17 documented as of this encounter
[2024-10-09 09:36] LABS: Glucose, Point-of-Care* 209 mg/dl (60-115)
--- NOTE | 2024-10-09 10:16 | ED.NAVMDI ---
HPI - Nausea/Vomiting/Diarrhea General Chief complaint: Nausea/Vomiting Stated complaint: weakness Time Seen by Provider: 10/09/24 09:55 History of Present Illness HPI Narrative: This 79-year-old male comes in with his . He is reporting feeling ill over the past 5 or 6 days. He has had some nausea and occasions of vomiting over the past several days. He does not report any fever. He has not had any pain and does not report diarrhea symptoms. He does have diabetes and a spot glucose check on arrival here was showing a level of 209. He arrives here with normal vital signs. Related Data Home Medications ?Medication ?Instructions ?Recorded ?Confirmed aspirin 81 mg chewable tablet 81 mg PO QDAY 12/02/21 06/05/24 Previous Rx's ?Medication ?Instructions ?Recorded metformin 500 mg tablet 500 mg PO .COMPLEX #450 tabs 04/24/24 ramipril 10 mg capsule 20 mg (2 x 10 mg) PO QDAY Diabetes 04/24/24 #180 caps simvastatin 40 mg tablet 40 mg PO .Bedtime #90 tabs 04/24/24 semaglutide 0.25 mg or 0.5 mg (2 0.25 mg (0.368 mL) subcut QWEEK 05/03/24 mg/3 mL) subcutaneous pen injector Diabetes #9 mL ondansetron HCl 4 mg tablet 4 mg PO Q6H #20 tabs 10/09/24 Allergies Allergy/AdvReac Type Severity Reaction Status Date / Time No Known Drug Allergies Allergy Verified 06/05/24 09:54 Review of Systems Status of ROS: Reports: 10 or more systems reviewed and unremarkable except as noted in History and below Narrative: Constitutional: No fevers, no weight gain or loss. Eyes: No discharge. No vision changes. HENT: No congestion, no sore throat, no ear pain. Cardiovascular: No chest pain, no palpitations. Respiratory: No shortness of breath, no wheezes, no cough. Gastrointestinal: No abdominal pain, no diarrhea. Nausea with occasions of vomiting. Genitourinary: No dysuria, no hematuria. Musculoskeletal: Normal range of motion. Skin: No rashes, no pruritis. Neurological: No dizziness, weakness, sensory change, speech change. Endo/Heme/Allergies: No bruising or bleeding. No polydipsia. Pysch: no suicidality, no anxiety, no insomnia. All other systems reviewed and are negative. [facility] Medical History (Updated 10/09/24 @ 11:25 by Gabino Flores MD) Kidney stone ?N20.0 - Calculus of kidney (ICD-10) Pulmonary nodule ?R91.1 - Solitary pulmonary nodule (ICD-10) History of nephrolithiasis ?Z87.442 - Personal history of urinary calculi (ICD-10) Social History (Updated 04/24/24 @ 11:22 by Susan Rao ~ [facility]) What is your current living situation?: I presently have a place to live Problems where you live: no known problems In the past 12 months, utilities in danger of being shut off: no In past 12 months, lack of transportation kept you from medical appts, meetings, work, or getting things needed for daily living: no In the past 12 mos, have been you worried that your food would run out before you had money to buy more?: never true In the past 12 mos, the food you bought just didn't last and you didn't have money to buy more?: never true Smoking Status: Never smoker Do you use any of these nicotine containing products: None How often do you have a drink containing alcohol: never How often do you have six or more drinks on one occasion: Never AUDIT-C Alcohol total score: 0 Non-prescribed substance use: denies use Caffeine: No How often does anyone, including family, friends and others, physically hurt you: never How often does anyone, including family, friends and others, insult or talk down to you: never How often does anyone, including family, friends and others, threaten you with harm: never How often does anyone, including family, friends and others, scream or curse at you: never service: No Exam Narrative: Exam Narrative: Constitutional: Well-developed, well-nourished, no acute distress. HEENT: Normocephalic, atraumatic. Neck: Normal range of motion. Nontender. Supple. Heart: Regular. No murmurs. Normal rate. Intact distal pulses. Lungs: Clear to auscultation. No chest discomfort. No wheezes, rhonchi, or rales. Abdomen: Normal bowel sounds. Nontender. No rebound tenderness. Genitalia: Deferred. Back: No midline tenderness. Normal range of motion. Extremities: Normal range of motion. No injury. Skin: Intact. No rash. Warm. No erythema or pallor. Neurologic: No altered sensation. No weakness. Alert and oriented. Psychiatric: No suicidality. No anxiety or depression. No insomnia. Nursing notes and vitals signs are reviewed. Const: Vital Signs, click to edit/add: Vital Signs - 24 hr 10/09/24 09:33 10/09/24 09:38 10/09/24 09:40 Temperature 99.2 F Pulse Rate 76 73 Pulse Rate [Pulse Oximeter] 84 Respiratory Rate 24 22 Blood Pressure 150/73 H Blood Pressure [Ri ght Upper Arm] 135/76 Pulse Oximetry 95 95 97 Oxygen Delivery Me thod Room Air 10/09/24 09:45 10/09/24 10:00 10/09/24 10:15 Temperature Pulse Rate 71 67 69 Pulse Rate [Pulse Oximeter] Respiratory Rate 24 Blood Pressure Blood Pressure [Ri ght Upper Arm] Pulse Oximetry 95 96 94 Oxygen Delivery Me thod 10/09/24 10:30 10/09/24 10:45 10/09/24 11:00 Temperature Pulse Rate 83 74 Pulse Rate [Pulse Oximeter] Respiratory Rate 23 17 15 Blood Pressure Blood Pressure [Ri ght Upper Arm] Pulse Oximetry 97 95 Oxygen Delivery Me thod 10/09/24 11:15 10/09/24 11:19 Temperature Pulse Rate 70 74 Pulse Rate [Pulse Oximeter] Respiratory Rate 17 18 Blood Pressure 130/67 Blood Pressure [Ri ght Upper Arm] Pulse Oximetry 96 96 Oxygen Delivery Me thod Course Vital Signs Vital signs: Initial Vital Signs Temperature 99.2 F 10/09/24 09:33 Temperature Source Temporal Artery Scan 10/09/24 09:33 Pulse Rate 84 10/09/24 09:33 Respiratory Rate 24 10/09/24 09:33 Blood Pressure 135/76 10/09/24 09:33 Blood Pressure Mean 95 10/09/24 09:33 Blood Pressure Position Sitting 10/09/24 09:33 Pulse Oximetry 95 10/09/24 09:33 Oxygen Delivery Method Room Air 10/09/24 09:33 Vital Signs Temperature 99.2 F 10/09/24 09:33 Pulse Rate 84 10/09/24 09:33 Respiratory Rate 24 10/09/24 09:33 Blood Pressure 135/76 10/09/24 09:33 Pulse Oximetry 95 10/09/24 09:33 Oxygen Delivery Method Room Air 10/09/24 09:33 Temperature 99.2 F 10/09/24 09:33 Pulse Rate 74 10/09/24 11:19 Respiratory Rate 18 10/09/24 11:19 Blood Pressure 130/67 10/09/24 11:19 Pulse Oximetry 96 10/09/24 11:19 Oxygen Delivery Method Room Air 10/09/24 09:33 Medications Administered Medications: Discontinued Medications Generic Name Dose Route Start Last Admin Trade Name Maggie PRN Reason Stop Dose Admin Sodium Chloride 1,000 mls @ 1,000 mls/hr 10/09/24 10:15 10/09/24 11:21 0.9 % Sodium Chloride 1000 Ml IV 10/09/24 11:14 Infused .Q1H SLOANE Infusion Ondansetron HCl 4 mg 10/09/24 10:11 10/09/24 10:22 Ondansetron 2 Mg/Ml Inj IVP 10/09/24 10:12 4 mg ONCE ONE Administration MDM - Nausea/Vomiting/Diarrhea MDM Narrative Medical decision making narrative: This patient comes in reporting nausea and some vomiting as described above. An IV was placed where he received a L of normal saline and 4 mg of Zofran. These treatments helped him feel significantly better. Labs are acquired and these returned with reassuring results. He is not showing any significant leukocytosis or change in his electrolytes. His glucose is a bit elevated but this would be expected when not feeling right. He is okay to be discharged home. I did provide a prescription for Zofran. Lab Data Labs: Lab Results 10/09/24 10/09/24 Range/Units 09:35 10:43 WBC 10.25 (4.50-11.00) K/uL RBC 4.37 (4.30-5.90) m/uL Hgb 13.2 L (13.5-17.5) gm/dL Hct 38.6 (37.0-53.0) % MCV 88 (80-100) fL MCH 30 (26-34) pg MCHC 34 (32-36) gm/dL RDW Coeff of Dre 12.6 (11.5-15.5) % Plt Count 115 L (140-440) K/uL Neut % (Auto) 83.4 H (42.0-72.0) % Lymph % (Auto) 7.6 L (20-44) % Hendry % (Auto) 8.7 (0.0-11.0) % Eos % (Auto) 0.0 (0.0-7.0) % Baso % (Auto) 0.2 (0.0-3.0) % Neut # (Auto) 8.50 H (1.7-7.0) K/uL Lymph # (Auto) 0.80 L (0.90-2.90) K/uL Hendry # (Auto) 0.90 (0.00-0.90) K/UL Eos # (Auto) 0.00 (0.00-0.50) K/uL Baso # (Auto) 0.02 (0.00-0.30) K/uL Abs Immat Gran (auto) 0.01 (0.00-0.30) K/uL Imm/Tot Granulo (auto) 0.1 % Sodium 132 L (135-149) mmol/L Potassium 4.0 (3.6-5.1) mmol/L Chloride 98 (96-114) mmol/L Carbon Dioxide 23 (20-32) mmol/L Anion Gap 11 (7-15) mEq/L BUN 30 (7-30) mg/dL Creatinine 1.1 (0.5-1.5) mg/dL Estimated Creat Clear 59.53 Estimated GFR 69 ml/min Glucose 193 H (60-115) mg/dL Calcium 8.7 (8.4-10.6) mg/dL POC Glucose 209 H (60-115) mg/dl Discharge Plan Discharge Clinical Impression: Gastroenteritis Patient Disposition: Home, Self-Care Condition: Improved Additional Instructions: Take medication as needed and directed. Take frequent sips of fluids any increase diet otherwise as tolerated. Follow up with MD return if worsening. Prescriptions: New ondansetron HCl 4 mg tablet 4 mg PO Q6H Qty: 20 0RF No Action aspirin 81 mg tablet,chewable 81 mg PO QDAY ramipril 10 mg capsule 20 mg PO QDAY Qty: 180 3RF simvastatin 40 mg tablet 40 mg PO .Bedtime Qty: 90 1RF metformin 500 mg tablet 500 mg PO .COMPLEX Qty: 450 1RF Rx Instructions: 500 mg PO Take 3 tablets in the morning, take 2 tablets in the evening.; semaglutide 0.25 mg or 0.5 mg (2 mg/3 mL) pen injector 0.25 mg subcut QWEEK Qty: 9 3RF Rx Instructions: for 4 weeks Follow Up/Referrals: Suleiman Barajas MD [Primary Care Provider, Internal Medicine] Stand Alone [facility] Info Inst[facility]
[2024-10-09] MEDS: ONDANSETRON 2 MG/ML inj 4 MG IVP (10:22)
[2024-10-09 10:55] LABS: Hematocrit 38.6 % (37.0-53.0); Hemoglobin* 13.2 gm/dL (13.5-17.5); Immature Granulocytes Abs Auto 0.01 K/uL (0.00-0.30); Immature Granulocytes Pct Auto 0.1 %; Mean Corpuscular HGB Conc 34 gm/dL (32-36); Mean Corpuscular Hemoglobin 30 pg (26-34); Mean Corpuscular Volume 88 fL (80-100); RDW Coefficient of Variation % 12.6 % (11.5-15.5); Red Blood Count 4.37 m/uL (4.30-5.90); White Blood Count* 10.25 K/uL (4.50-11.00)
[2024-10-09 11:15] LABS: Lymphocytes Absolute Auto 0.80 K/uL (0.90-2.90); Slide Review Reflex No
[2024-10-09 11:16] LABS: Chloride* 98 mmol/L (96-114); Potassium* 4.0 mmol/L (3.6-5.1); Sodium* 132 mmol/L (135-149)
[2024-10-09 11:19] LABS: Anion Gap 11 mEq/L (7-15); Blood Urea Nitrogen* 30 mg/dL (7-30); Calcium* 8.7 mg/dL (8.4-10.6); Carbon Dioxide* 23 mmol/L (20-32); Creatinine* 1.1 mg/dL (0.5-1.5); Est. Creatinine Clearance* 59.53; Estimated Glomerular Filt Rate 69 ml/min; Glucose* 193 mg/dL (60-115)
== END 2024-10-09 13:19 | disposition home or self-care (01) ==
PROVIDERS: Emergency Provider Emergency Medicine Emergency Medical Services; PCP Internal Medicine
DX: K52.9 Noninfective gastroenteritis and colitis, unspecified (principal)
CPT/HCPCS: 36415; 80048; 82947; 85025; 99283; 99284; J2405; J7030

== ENCOUNTER 2024-10-10 02:14 | Outpatient (CLI) | payer MEDICARE, SELFPAY | END 2024-10-10 02:15 | disposition home or self-care (01) | LOC: AMB 10-11 16:07 | PROVIDERS: PCP Internal Medicine; Visit Provider Family Medicine | DX: R53.1 Weakness (principal) | CPT/HCPCS: A0425; A0427 ==

== ENCOUNTER 2024-10-10 22:21 | Inpatient (IN) | payer MEDICARE, SELFPAY ==
[2024-10-10] VITALS (11 sets, daily range): BP systolic 106–142; BP diastolic 67–78; PULSE 75–89; RESP 13–30; TEMP 37.5–38.8; O2SAT 94–96; BMI 25.8
--- OUTSIDE RECORDS SUMMARY | 2024-10-10 22:23 | XMS_ITS | Encounter Summary ---
Author Organization [facility] Address [address] [place] [address] Care Team Providers Care Neon Sign Mechanic Name Role Phone Elsewhere, Pcp Primary Care Provider Unavailabl e Encounter Details Date Type Department Care Team (Late st Contact Info) Description 05/08/2014 Historical Ophthalmology RST OPH Benitez Yuan M.D. 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 oJhn to get his retina checked. He had [...] refractive error CDM Reports - EYEGEN Id: [id number] Status: Fnl documented in this encounter Plan of Treatment Upcoming Encounters Date Type Department Care Team (Latest Contact Info) Description 12/05/2024 8:45 AM CDT Clinical Communication Virtual Review in [address] [phone] 12/07/2024 11:15 AM CDT Appointment Department of Radiology, [facility], in [address] [phone] Destini Claudio M.D. [address] [place] [phone] 12/07/2024 4:30 PM CDT Office Visit Division of Pulmonary Medicine in [address] [phone] Destini Claudio M.D. [address] [place] [phone] documented as of this encounter Visit Diagnoses Not on filedocumented in this encounter Care Teams Neon Sign Mechanic Relationship Specialty Start Date End Date Elsewhere, Pcp PCP - General Family Medicine 02/17/17 documented as of this encounter
--- OUTSIDE RECORDS SUMMARY | 2024-10-10 22:23 | XMS_ITS | Encounter Summary ---
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 - 01/18/2006 12:00 AM CST Eye Subsequent Visit HISTORY OF PRESENT ILLNESS Proparacaine left eye. Laser left eye. CDM Reports - EYESV Id: [id number] Status: Fnl documented in this encounter Plan of Treatment Upcoming Encounters Date Type Department Care Team (Latest Contact Info) Description 12/05/2024 8:45 AM CDT Clinical Communication Virtual Review in [place], [place] [address] [place] [address] 12/07/2024 11:15 AM CDT Appointment Department [facility], [facility], in [place], [place] [address] [place] [address] Destini Claudio M.D. [address] [place] [phone] 12/07/2024 4:30 PM CDT Office Visit Division of Pulmonary Medicine in [place], [place] [address] [place] [address] Destini Claudio M.D. [address] [place] [phone] documented as of this encounter Visit Diagnoses Not on filedocumented in this encounter Care Teams Tunnel Kiln Operator Relationship Specialty Start Date End Date Elsewhere, Pcp PCP - General Family Medicine 02/17/17 documented as of this encounter
--- OUTSIDE RECORDS SUMMARY | 2024-10-10 22:23 | XMS_ITS | Clinical Summary ---
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 Gender Identity Not on file Sexual Orientation [...] this topic Medical Devices Implanted Type Area Gear Tooth Lapping Machine Operator Device Identifier Shelf Expiration Date Model / Serial / Lot Stent Uret [id number] Contour - [id number] Implanted:Qty: 1 on 05/19/2024 by Filemon Mendieta MD at [facility] Left: Ureter [facility] Urology [id number] / / [id number] Insurance [employer] MEDICARE ADVANTAGE MR Advance Directives * Full Code (Latest Code Status on File) Date Activated Date Inactivated Comments 05/19/2024 1:37 AM 05/20/2024 4:09 PM Question Answer Comments Code Status Discussion: Reviewed Preferences * Full Code Date Activated Date Inactivated Comments 05/19/2024 1:17 AM 05/19/2024 1:37 AM Question Answer Comments Code Status Discussion: Other Care Teams Communications Equipment Installer Relationship Specialty Start Date End Date Suleiman Barajas MD [address] [place] [address] PCP - General Internal Medicine 08/17/17
--- OUTSIDE RECORDS SUMMARY | 2024-10-10 22:23 | XMS_ITS | Clinical Summary ---
Author Organization [facility] Address [address] [place] [address] Care Team Providers Care Naval Aircrewman Operator Name Role Phone Elsewhere, Pcp Primary Care Provider Unavailabl e Source Comments Patient records contain information from all sites at [facility]. For routine questions regarding patient records, call [phone] during business hours, M-F 8:00 AM - 5:00 PM Central Time. Record requests for emergency care only can be directed to [phone] at any time.[facility] Allergies No known active allergies Medications aspirin [...] drink = 0.6 oz pur e alcohol) [facility] Utilities Answer Date Recorded In the past 12 months has e Emulate, gas, oil, or water company threatened to [...] your living situation today? 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 [address] [place] [phone] 12/07/2024 4:30 PM CDT Office Visit Division of Pulmonary Medicine in [place], [place] [address] [place] [address] Destini Claudio M.D. [address] [place] [phone] Health Maintenance Due Date Last Done Comments [...] this topic Medical Devices Implanted Type Area Airplane Tube Builder Device Identifier Shelf Expiration Date Model / Serial / Lot Bilateral Ocular Lens Ocular Lens Bilateral : Eye Insurance [facility] Care Teams Naval Aircrewman Operator Relationship Specialty Start Date End Date Elsewhere, Pcp PCP - General Family Medicine 02/17/17
--- OUTSIDE RECORDS SUMMARY | 2024-10-10 22:23 | XMS_ITS | Encounter Summary ---
Author Organization [facility] Address [address] [place] [address] Care Team Providers Care Screening Tech Name Role Phone Elsewhere, Pcp Primary Care Provider Unavailabl e Encounter Details Date Type Department Care Team (Late st Contact Info) Description 06/07/2016 Historical Ophthalmology RST OPH Benitez Yuan M.D. 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 [address] [place] [phone] 12/07/2024 4:30 PM CDT Office Visit Division of Pulmonary Medicine in [place], [place] [address] [place] [phone] Destini Claudio M.D. 200 [place] [address] documented as of this encounter Visit Diagnoses Not on filedocumented in this encounter Care Teams Screening Tech Relationship Specialty Start Date End Date Elsewhere, Pcp PCP - General Family Medicine 02/17/17 documented as of this encounter
--- OUTSIDE RECORDS SUMMARY | 2024-10-10 22:23 | XMS_ITS | Encounter Summary ---
Author Organization [facility] Address [address] [place] [address] Care Team Providers Care Director Of Academic Name Role Phone Elsewhere, Pcp Primary Care Provider Unavailabl e Encounter Details Date Type Department Care Team (Late st Contact Info) Description 11/16/2005 Historical Ophthalmology RST OPH Trino Ron M.D. 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 [address] [place] [phone] 12/07/2024 4:30 PM CDT Office Visit Division of Pulmonary Medicine in [address] [phone] Destini Claudio M.D. [address] [place] [phone] documented as of this encounter Visit Diagnoses Not on filedocumented in this encounter Care Teams Director Of Academic Relationship Specialty Start Date End Date Elsewhere, Pcp PCP - General Family Medicine 02/17/17 documented as of this encounter
--- OUTSIDE RECORDS SUMMARY | 2024-10-10 22:23 | XMS_ITS | Encounter Summary ---
Author Organization [facility] Address [address] [place] [address] Care Team Providers Care Candle Molder Hand Name Role Phone Elsewhere, Pcp Primary Care Provider Unavailabl e Encounter Details Date Type Department Care Team (Late st Contact Info) Description 05/07/2014 Historical Ophthalmology RST OPH Benitez Yuan M.D. 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 [address] [place] [phone] 12/07/2024 4:30 PM CDT Office Visit Division of Pulmonary Medicine in [place], [place] [address] [place] [phone] Destini Claudio M.D. [address] [place] [phone] documented as of this encounter Visit Diagnoses Not on filedocumented in this encounter Care Teams Candle Molder Hand Relationship Specialty Start Date End Date Elsewhere, Pcp PCP - General Family Medicine 02/17/17 documented as of this encounter
--- OUTSIDE RECORDS SUMMARY | 2024-10-10 22:23 | XMS_ITS | Encounter Summary ---
Author Organization [facility] Address [address] [place] [address] Care Team Providers Care Roving Teller Name Role Phone Elsewhere, Pcp Primary Care Provider Unavailabl e Encounter Details Date Type Department Care Team (Late st Contact Info) Description 03/10/2016 Historical Ophthalmology RST OPH Benitez Yuan M.D. 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 [address] [place] [phone] 12/07/2024 4:30 PM CDT Office Visit Division of Pulmonary Medicine in [place], [place] [address] [place] [phone] Destini Claudio M.D. [address] [place] [phone] documented as of this encounter Visit Diagnoses Not on filedocumented in this encounter Care Teams Roving Teller Relationship Specialty Start Date End Date Elsewhere, Pcp PCP - General Family Medicine 02/17/17 documented as of this encounter
--- OUTSIDE RECORDS SUMMARY | 2024-10-10 22:23 | XMS_ITS | Encounter Summary ---
Author Organization [facility] Address [address] [place] [address] Care Team Providers Care Systems Mechanic Name Role Phone Elsewhere, Pcp Primary Care Provider Unavailabl e Encounter Details Date Type Department Care Team (Late st Contact Info) Description 09/14/2005 Historical Ophthalmology RST OPH Trino Ron M.D. 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 [address] [place] [phone] 12/07/2024 4:30 PM CDT Office Visit Division of Pulmonary Medicine in [address] [phone] Destini Claudio M.D. [address] [place] [phone] documented as of this encounter Visit Diagnoses Not on filedocumented in this encounter Care Teams Systems Mechanic Relationship Specialty Start Date End Date Elsewhere, Pcp PCP - General Family Medicine 02/17/17 documented as of this encounter
--- OUTSIDE RECORDS SUMMARY | 2024-10-10 22:23 | XMS_ITS | Encounter Summary ---
Author Organization [facility] Address [address] [place] [address] Care Team Providers Care Hydrogen Plant Operations Manager Name Role Phone Elsewhere, Pcp Primary Care Provider Unavailabl e Encounter Details Date Type Department Care Team (Late st Contact Info) Description 07/14/2005 Historical Ophthalmology RST OPH Trino Ron M.D. 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 [address] [place] [phone] 12/07/2024 4:30 PM CDT Office Visit Division of Pulmonary Medicine in [address] [phone] Destini Claudio M.D. [address] [place] [phone] documented as of this encounter Visit Diagnoses Not on filedocumented in this encounter Care Teams Hydrogen Plant Operations Manager Relationship Specialty Start Date End Date Elsewhere, Pcp PCP - General Family Medicine 02/17/17 documented as of this encounter
--- OUTSIDE RECORDS SUMMARY | 2024-10-10 22:23 | XMS_ITS | Encounter Summary ---
Author Organization [facility] Address [address] [place] [address] Care Team Providers Care Senior Licensing Manager Name Role Phone Elsewhere, Pcp Primary Care Provider Unavailabl e Encounter Details Date Type Department Care Team (Late st Contact Info) Description 07/20/2016 Historical Ophthalmology RST OPH Benitez Yuan M.D. 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 [address] [place] [phone] 12/07/2024 4:30 PM CDT Office Visit Division of Pulmonary Medicine in [address] [phone] Destini Claudio M.D. [address] [place] [phone] documented as of this encounter Visit Diagnoses Not on filedocumented in this encounter Care Teams Senior Licensing Manager Relationship Specialty Start Date End Date Elsewhere, Pcp PCP - General Family Medicine 02/17/17 documented as of this encounter
--- OUTSIDE RECORDS SUMMARY | 2024-10-10 22:23 | XMS_ITS | Encounter Summary ---
Author Organization [facility] Address [address] [place] [address] Care Team Providers Care Pharmaceutical Representative Name Role Phone Elsewhere, Pcp Primary Care Provider Unavailabl e Encounter Details Date Type Department Care Team (Late st Contact Info) Description 01/18/2006 Historical Ophthalmology RST OPH Trino Ron M.D. 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 [address] [place] [phone] 12/07/2024 4:30 PM CDT Office Visit Division of Pulmonary Medicine in [address] [phone] Destini Claudio M.D. [address] [place] [phone] documented as of this encounter Visit Diagnoses Not on filedocumented in this encounter Care Teams Pharmaceutical Representative Relationship Specialty Start Date End Date Elsewhere, Pcp PCP - General Family Medicine 02/17/17 documented as of this encounter
--- OUTSIDE RECORDS SUMMARY | 2024-10-10 22:23 | XMS_ITS | Encounter Summary ---
Author Organization [facility] Address [address] [place] [address] Care Team Providers Care Linderman Operator Name Role Phone Elsewhere, Pcp Primary Care Provider Unavailabl e Encounter Details Date Type Department Care Team (Late st Contact Info) Description 05/10/2017 Historical Ophthalmology RST OPH Benitez Yuan M.D. 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 [address] [place] [phone] 12/07/2024 4:30 PM CDT Office Visit Division of Pulmonary Medicine in [place], [place] [address] [place] [address] Destini Claudio M.D. [address] [place] [address] documented as of this encounter Visit Diagnoses Not on filedocumented in this encounter Care Teams Linderman Operator Relationship Specialty Start Date End Date Elsewhere, Pcp PCP - General Family Medicine 02/17/17 documented as of this encounter
--- OUTSIDE RECORDS SUMMARY | 2024-10-10 22:23 | XMS_ITS | Encounter Summary ---
Author Organization [facility] Address [address] [place] [address] Care Team Providers Care Ice Cream Man Name Role Phone Elsewhere, Pcp Primary Care Provider Unavailabl e Encounter Details Date Type Department Care Team (Late st Contact Info) Description 09/08/2016 Historical Ophthalmology RST OPH Benitez Yuan M.D. 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 [address] [place] [phone] 12/07/2024 4:30 PM CDT Office Visit Division of Pulmonary Medicine in [place], [place] [address] [place] [address] Destini Claudio M.D. [address] [place] [address] documented as of this encounter Visit Diagnoses Not on filedocumented in this encounter Care Teams Ice Cream Man Relationship Specialty Start Date End Date Elsewhere, Pcp PCP - General Family Medicine 02/17/17 documented as of this encounter
--- OUTSIDE RECORDS SUMMARY | 2024-10-10 22:23 | XMS_ITS | Encounter Summary ---
Author Organization [facility] Address [address] [place] [address] Care Team Providers Care Commercial Loan Assistant Name Role Phone Elsewhere, Pcp Primary Care Provider Unavailabl e Encounter Details Date Type Department Care Team (Late st Contact Info) Description 08/06/2014 Historical Ophthalmology RST OPH Benitez Yuan M.D. 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 Denies blurred vision, light flashes, floaters, ocular [...] refractive error CDM Reports - EYEGEN Id: [id number] Status: Fnl documented in this encounter Plan of Treatment Upcoming Encounters Date Type Department Care Team (Latest Contact Info) Description 12/05/2024 8:45 AM CDT Clinical Communication Virtual Review in [place], [place] 200 [place] [address] 12/07/2024 11:15 AM CDT Appointment Department of Radiology, [facility], in [place], [place] [address] [place] [phone] Destini Claudio M.D. [address] [place] [phone] 12/07/2024 4:30 PM CDT Office Visit Division of Pulmonary Medicine in [place], [place] [address] [place] [phone] Destini Claudio M.D. [address] [place] [phone] documented as of this encounter Visit Diagnoses Not on filedocumented in this encounter Care Teams Commercial Loan Assistant Relationship Specialty Start Date End Date Elsewhere, Pcp PCP - General Family Medicine 02/17/17 documented as of this encounter
--- OUTSIDE RECORDS SUMMARY | 2024-10-10 22:23 | XMS_ITS | Encounter Summary ---
Author Organization [facility] Address [address] [place] [address] Care Team Providers Care Case Filler Name Role Phone Elsewhere, Pcp Primary Care Provider Unavailabl e Encounter Details Date Type Department Care Team (Late st Contact Info) Description 05/23/2006 Historical Ophthalmology RST OPH Trino Ron M.D. 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 [address] [place] [phone] 12/07/2024 4:30 PM CDT Office Visit Division of Pulmonary Medicine in [address] [phone] Destini Claudio M.D. [address] [place] [phone] documented as of this encounter Visit Diagnoses Not on filedocumented in this encounter Care Teams Case Filler Relationship Specialty Start Date End Date Elsewhere, Pcp PCP - General Family Medicine 02/17/17 documented as of this encounter
--- NOTE | 2024-10-10 22:40 | ED_ITS ---
HPI - Fever General Time Seen by Provider: 22:40 <Liliana Horvath MD - Last Filed: 10/13/24 11:54> Date Seen: 10/10/24 <Liliana Horvath MD - Last Filed: 10/13/24 11:54> Chief Complaint: Fever <Liliana Horvath MD - Last Filed: 10/13/24 11:54> Stated Complaint: weakness <Liliana Horvath MD - Last Filed: 10/13/24 11:54> Time Seen by Provider: 10/10/24 22:40 <Liliana Horvath MD - Last Filed: 10/13/24 11:54> Source: patient, EMS, RN notes reviewed and old records reviewed <Liliana Horvath MD - Last Filed: 10/13/24 11:54> Mode of arrival: EMS <Liliana Horvath MD - Last Filed: 10/13/24 11:54> Limitations: no limitations <Liliana Horvath MD - Last Filed: 10/13/24 11:54> History of Present Illness HPI Narrative: This 79-year-old male is coming in via EMS from home with fever, shaking and weakness. He states he is just having body aches. He denies any cough, no cold symptoms. No headache. He denies any abdominal pain, no nausea vomiting, no diarrhea, no urinary symptoms. He has no changes on his skin or places on his extremities that are hurting. He denies any travel, is not aware of any ill contacts. He was in the ER yesterday, he was here with his . He reported that he had been feeling ill further about 5 or 6 days. He reportedly had bre sea and some vomiting over the past several days. He tells me tonight he has been able to drink water in fluids and denied vomiting. I learned of the nausea and vomiting upon looking at his record from yesterday. He did deny diarrheal symptoms. He is known to be diabetic, glucose was 209 on arrival yesterday. Patient's total white blood count was normal yesterday at 10,250 but did have a slight elevated absolute neutrophil count of 8500. His sodium was minimally low 132, rest of his basic metabolic panel non concerning. <Liliana Horvath MD - Last Filed: 10/13/24 11:54> MD elicited complaint: fever and weakness <Liliana Horvath MD - Last Filed: 10/13/24 11:54> Related Data Home Medications: Home Medications ?Medication ?Instructions ?Recorded ?Confirmed aspirin 81 mg chewable tablet 81 mg PO QDAY 12/02/21 0 10/11/24 Previous Rx's ?Medication ?Instructions ?Recorded metformin 500 mg tablet 500 mg PO .COMPLEX #450 tabs 04/24/24 ramipril 10 mg capsule 20 mg (2 x 10 mg) PO QDAY Di abetes 04/24/24 #180 caps simvastatin 40 mg tablet 40 mg PO .Bedtime #90 tabs 0 04/24/24 semaglutide 0.25 mg or 0.5 mg (2 0.25 mg (0.368 mL) ferrer bcut QWEEK 05/03/24 mg/3 mL) subcutaneous pen injector Diabetes #9 mL <Liliana Horvath MD - Last Filed: 10/13/24 11:54> Allergies/Adverse Reactions: Allergies Allergy/AdvReac Type Severity Reaction Status Date / Time No Known Drug Allergies Allergy Verified 10/11/24 00:55 <Liliana Horvath MD - Last Filed: 10/13/24 11:54> Review of Systems Status of ROS Reports: 6 or more systems reviewed and unremarkable except as noted in History and below <Liliana Horvath MD - Last Filed: 10/13/24 11:54> [facility] Medical History: Medical History Kidney stone ?N20.0 - Calculus of kidney (ICD-10) Pulmonary nodule ?R91.1 - Solitary pulmonary nodule (ICD-10) History of nephrolithiasis ?Z87.442 - Personal history of urinary calculi (ICD-10) <Liliana Horvath MD - Last Filed: 10/13/24 11:54> Social History: Social History What is your current living situation?: I presently have a place to live Problems where you live: no known problems Problems where you live details: n/a In the past 12 months, utilities in danger of being shut off: no In past 12 months, lack of transportation kept you from medical appts, meetings, work, or getting things needed for daily living: no In the past 12 mos, have been you worried that your food would run out before you had money to buy more?: never true In the past 12 mos, the food you bought just didn't last and you didn't have money to buy more?: never true Highest level of school completed/degree received: high school graduate Smoking Status: Never smoker Do you use any of these nicotine containing products: None Second hand tobacco smoke exposure: No How often do you have a drink containing alcohol: never How often do you have six or more drinks on one occasion: Never AUDIT-C Alcohol total score: 0 Non-prescribed substance use: denies use Caffeine: No How often does anyone, including family, friends and others, physically hurt you : never How often does anyone, including family, friends and others, insult or talk down to you: never How often does anyone, including family, friends and others, threaten you with harm: never How often does anyone, including family, friends and others, scream or curse at you: never service: No <Liliana Horvath MD - Last Filed: 10/13/24 11:54> Exam Const Vital Signs, click to edit/add: Vital Signs - 24 hr 10/10/24 22:27 10/10/24 22:36 10/10/24 22:38 Temperature 99.5 F 101.8 F H Pulse Rate 86 Pulse Rate [Pulse Oximeter] 89 Respiratory Rate 22 Blood Pressure Blood Pressure [Right Upper Arm] 142/76 H Pulse Oximetry 96 94 Oxygen Delivery Method Room Air 10/10/24 22:41 10/10/24 22:45 10/10/24 23:00 Temperature Pulse Rate 87 82 Pulse Rate [Pulse Oximeter] Respiratory Rate 13 30 H Blood Pressure Blood Pressure [Right Upper Arm] Pulse Oximetry 94 94 94 Oxygen Delivery Method 10/10/24 23:02 10/10/24 23:09 10/10/24 23:18 Temperature 100.3 F H Pulse Rate 81 Pulse Rate [Pulse Oximeter] Respiratory Rate 29 H 26 H Blood Pressure 129/78 Blood Pressure [Right Upper Arm] Pulse Oximetry 94 Oxygen Delivery Method 10/10/24 23:30 10/10/24 23:51 10/11/24 00:01 Temperature Pulse Rate 75 72 Pulse Rate [Pulse Oximeter] Respiratory Rate 22 18 20 Blood Pressure 106/67 105/57 L Blood Pressure [Right Upper Arm] Pulse Oximetry 94 96 Oxygen Delivery Method 10/11/24 00:32 10/11/24 01:15 10/11/24 01:31 Temperature 98.5 F Pulse Rate 73 71 72 Pulse Rate [Pulse Oximeter] Respiratory Rate 20 20 16 Blood Pressure 108/58 L 119/69 111/69 Blood Pressure [Right Upper Arm] Pulse Oximetry 92 95 93 Oxygen Delivery Method This 79-year-old male is alert but seems ill. Somewhat sleepy but certainly very arousable. Answering in yes no questions or short phrases, does not want to seem to carry on long conversations. He shivering, skin is dooley, no rash, no erythematous areas noted. Sclera clear, conjugate gaze. Lips are normal but oropharynx shows very dry mucosa. Dentition in poor repair particularly lower mouth but he states there is no pain, see no erythema or gum swelling around any of this dentition. Neck thin, supple, no masses. Barely able to sit up, rule him to his sides to listen to his lungs. Poor inspiratory effort but overall do not hear any wheezing or crackles. Breathing easily on room air. CV is regular, no murmur noted, normal S1-S2. Abdomen is slender, soft, nontender, no organomegaly or masses. He has no lower extremity edema. Will move his arms and legs, nothing focal on gross neurologic examination at this time. <Liliana Horvath MD - Last Filed: 10/13/24 11:54> Vital Signs - 24 hr 10/10/24 22:27 10/10/24 22:36 10/10/24 22:38 Temperature 99.5 F 101.8 F H Pulse Rate 86 Pulse Rate [Pulse Oximeter] 89 Respiratory Rate 22 Blood Pressure Blood Pressure [Right Upper Arm] 142/76 H Pulse Oximetry 96 94 Oxygen Delivery Method Room Air 10/10/24 22:41 10/10/24 22:45 10/10/24 23:00 Temperature Pulse Rate 87 82 Pulse Rate [Pulse Oximeter] Respiratory Rate 13 30 H Blood Pressure Blood Pressure [Right Upper Arm] Pulse Oximetry 94 94 94 Oxygen Delivery Method 10/10/24 23:02 10/10/24 23:09 10/10/24 23:18 Temperature 100.3 F H Pulse Rate 81 Pulse Rate [Pulse Oximeter] Respiratory Rate 29 H 26 H Blood Pressure 129/78 Blood Pressure [Right Upper Arm] Pulse Oximetry 94 Oxygen Delivery Method 10/10/24 23:30 10/10/24 23:51 10/11/24 00:01 Temperature Pulse Rate 75 72 Pulse Rate [Pulse Oximeter] Respiratory Rate 22 18 20 Blood Pressure 106/67 105/57 L Blood Pressure [Right Upper Arm] Pulse Oximetry 94 96 Oxygen Delivery Method 10/11/24 00:32 10/11/24 01:15 10/11/24 01:31 Temperature 98.5 F Pulse Rate 73 71 72 Pulse Rate [Pulse Oximeter] Respiratory Rate 20 20 16 Blood Pressure 108/58 L 119/69 111/69 Blood Pressure [Right Upper Arm] Pulse Oximetry 92 95 93 Oxygen Delivery Method <Annemarie iWll MD - Last Filed: 10/11/24 01:56> Documenting provider has reviewed patient's vital signs: yes <Liliana Horvath MD - Last Filed: 10/13/24 11:54> Course Course ED Course: This patient is febrile, obviously presenting with concerns that he might be septic just looking at him clinically. Will order sepsis fluids, need to find his source. Will do triple viral swab to see if this could be viral like COVID. Need to get full complement of labs including blood cultures. Will look at a portable chest x-ray to see if there is any evidence of pneumonia but he is not giving any respiratory symptoms. Will get him a dose of Tylenol to try to provide some comfort from the fever. He will be watched closely, will have him on pulse oximetry and cardiac monitoring. Obviously need to fully culture and consider sources, will have nursing staff try to get urine as quickly as possible. Will be ordering a dose of IV Zosyn to start with an expand coverage as needed or if clinically appropriate. <Liliana Horvath MD - Last Filed: 10/13/24 11:54> Reevaluation(s) Time of Reevaluation #1: 23:04 <Liliana Horvath MD - Last Filed: 10/13/24 11:54> Reevaluation #1: Nursing staff stated is here. Patient actually had a fall in the bathroom and reportedly hit his head. Will subsequently order head CT noncontrast. <Liliana Horvath MD - Last Filed: 10/13/24 11:54> Time of Reevaluation #2: 23:25 <Liliana Horvath MD - Last Filed: 10/13/24 11:54> Reevaluation #2: In reviewing patient's history, do see that he has had a history of kidney stones. We do not have a urinalysis yet but do have significant concerns if there is an underlying infected kidney stone. Will proceed with CT abdomen pelvis noncontrast. Patient's is here now and did review with her that we are looking for source of infection. He states he had a kidney stone about 2 months ago. He has not been having any pain. I will order IV Zosyn after we collect the urine. We are going to place a [facility] in him for fluid management and specimen collection. She understands he might need transfer. Her 1st choice for transfer would be [place] as she can not drive there herself, does not find feasible to driving the [facility]. He has been to [facility] and within that system, she could get family to help her drive there if needed. <Liliana Horvath MD - Last Filed: 10/13/24 11:54> Time of Reevaluation #3: 01:54 <Annemarie Will MD - Last Filed: 10/11/24 01:56> Reevaluation #3: Patient accepted by hospitalist for admission. I had arouse patient about 20 minutes before this to discuss the findings of the CT and labs. At this point I am entirely confident of the source of his sepsis but I am somewhat reassured that there is not an obstructing kidney stone, and obvious pneumonia. Certainly could be a urinary source as we do have some hematuria and a few white cells though not the typical leukocyte esterase and nitrites that I would have expected to see. Cultures are of course pending. Zosyn and vancomycin were started by outgoing provider. Patient has not exhibited any hypotension or tachycardia but his lactate did improve with fluids. Recommend inpatient hospitalization for treatment of sepsis of uncertain source though suspected urinary, continued management per hospitalist team. <Annemarie Will MD - Last Filed: 10/11/24 01:56> Vital Signs Vital signs: Initial Vital Signs Temperature 99.5 F 10/10/24 22:27 Temperature Source Temporal Artery Scan 10/10/24 22:27 Pulse Rate 89 10/10/24 22:27 Pulse Rhythm Regular 10/10/24 22:27 Respiratory Rate 22 10/10/24 22:27 Blood Pressure 142/76 H 10/10/24 22:27 Blood Pressure Mean 98 10/10/24 22:27 Blood Pressure Position Sitting 10/10/24 22:27 Pulse Oximetry 96 10/10/24 22:27 Oxygen Delivery Method Room Air 10/10/24 22:27 Vital Signs Temperature 99.5 F 10/10/24 22:27 Pulse Rate 89 10/10/24 22:27 Respiratory Rate 22 10/10/24 22:27 Blood Pressure 142/76 H 10/10/24 22:27 Pulse Oximetry 96 10/10/24 22:27 Oxygen Delivery Method Room Air 10/10/24 22:27 Temperature 98.7 F 10/13/24 08:18 Pulse Rate 84 10/13/24 11:38 Respiratory Rate 16 10/13/24 08:18 Blood Pressure 134/78 10/13/24 11:38 Pulse Oximetry 98 10/13/24 11:38 Oxygen Delivery Method Room Air 10/13/24 08:18 <Liliana Horvath MD - Last Filed: 10/13/24 11:54> Initial Vital Signs Temperature 99.5 F 10/10/24 22:27 Temperature Source Temporal Artery Scan 10/10/24 22:27 Pulse Rate 89 10/10/24 22:27 Pulse Rhythm Regular 10/10/24 22:27 Respiratory Rate 22 10/10/24 22:27 Blood Pressure 142/76 H 10/10/24 22:27 Blood Pressure Mean 98 10/10/24 22:27 Blood Pressure Position Sitting 10/10/24 22:27 Pulse Oximetry 96 10/10/24 22:27 Oxygen Delivery Method Room Air 10/10/24 22:27 Vital Signs Temperature 99.5 F 10/10/24 22:27 Pulse Rate 89 10/10/24 22:27 Respiratory Rate 22 10/10/24 22:27 Blood Pressure 142/76 H 10/10/24 22:27 Pulse Oximetry 96 10/10/24 22:27 Oxygen Delivery Method Room Air 10/10/24 22:27 Temperature 98.7 F 10/13/24 08:18 Pulse Rate 84 10/13/24 11:38 Respiratory Rate 16 10/13/24 08:18 Blood Pressure 134/78 10/13/24 11:38 Pulse Oximetry 98 10/13/24 11:38 Oxygen Delivery Method Room Air 10/13/24 08:18 <Annemarie Will MD - Last Filed: 10/11/24 01:56> Medications Administered Medications: Generic Name Dose Route Start Last Admin Trade Name Freq PRN Reason Stop Dose Admin Acetaminophen 1,000 mg 10/11/24 09:29 10/13/24 01:14 Acetaminophen 500 Mg Tablet PO 1,000 mg Q6H PRN Administration Pain Aspirin 81 mg 10/11/24 09:00 10/13/24 08:23 Aspirin 81 Mg Tab.Chew PO 81 mg DAILY SLOANE Administration Doxycycline Hyclate 100 mg 10/12/24 21:00 10/13/24 08:23 Doxycycline Hyclate 100 Mg PO 100 mg BID [facility] Administration Enoxaparin Sodium 40 mg 10/11/24 21:00 10/12/24 21:01 Enoxaparin 40 Mg/0.4 Ml Inj SUBCUT 40 mg HS SLOANE Administration Insulin Aspart 0 unit 10/11/24 07:30 10/13/24 08:01 Insulin Aspart 100 Unit/Ml SUBCUT Not Given ACHS [facility] Protocol Metoclopramide HCl 10 mg 10/12/24 00:20 10/12/24 00:59 Metoclopramide Hcl 5 Mg/Ml Inj IVP 10 mg Q6H PRN Administration Ondansetron HCl 4 mg 10/11/24 02:29 10/11/24 21:59 Ondansetron 2 Mg/Ml Inj IVP 4 mg Q4H PRN Administration Nausea Simvastatin 40 mg 10/12/24 21:00 10/12/24 21:02 Simvastatin 40 Mg Tablet PO 40 mg HS S[place]ANE Administration Sodium Chloride 5 ml 10/11/24 09:00 10/13/24 08:24 Sodium Chloride 0.9 % (Flush) 10 Ml Syringe IVF 5 ml BID [place] Administration Discontinued Medications Generic Name Dose Route Start Last Admin Trade Name Fabioq PRN Reason Stop Dose Admin Acetaminophen 650 mg 10/10/24 23:01 10/10/24 23:09 Acetaminophen 325 Mg Tablet PO 10/10/24 23:02 650 mg ONCE ONE Administration Acetaminophen 650 mg 10/11/24 02:29 10/11/24 05:54 Acetaminophen 325 Mg Tablet PO 650 mg Q6H PRN Administration Pain Sodium Chloride 2,259 mls @ 753 mls/hr 10/10/24 23:00 10/11/24 01:36 0.9 % Sodium Chloride 1000 Ml 30 ml/kg infuse over 3 hr (2259 ml) 10/11/24 01:59 Infused IV Infusion .Q3H S[facility] Piperacillin Sod/Tazobactam 100 mls @ 200 mls/hr 10/10/24 23:34 10/11/24 00:12 Sod 3.375 gm/ Sodium Chloride IVPB 10/10/24 23:35 Infused ONCE ONE Infusion Vancomycin/PEG/NADA/Lysine/Water 1.75 gm in 350 mls @ 200 mls/hr 10/10/24 23:44 10/11/24 02:11 Vancomycin 1.75 Gm/350 Ml IVPB 10/11/24 01:28 Infused ONCE ONE Infusion Protocol Cefepime HCl 2 gm/ Sodium 100 mls @ 200 mls/hr 10/11/24 02:45 10/12/24 11:14 Chloride IVPB Not Given Q8H [facility] Sodium Chloride 1,000 mls @ 125 mls/hr 10/11/24 02:38 10/13/24 05:55 0.9 % Sodium Chloride 1000 Ml IV Infused .Q8H [facility] Infusion Vancomycin/PEG/NADA/Lysine/Water 1.25 gm in 250 mls @ 166.667 mls/hr 10/12/24 00:00 10/12/24 01:59 Vancomycin 1.25 Gm/250 Ml IVPB Infused Q24H [facility] Infusion Doxycycline Hyclate 100 mg/ 100 mls @ 100 mls/hr 10/11/24 10:00 10/12/24 11:13 Sodium Chloride IVPB Infused Q12H [facility] Infusion Acetaminophen 1,000 mg in 100 mls @ 400 mls/hr 10/12/24 00:21 10/12/24 01:29 Acetaminophen Inj IVPB 10/12/24 00:35 Infused ONCE ONE Infusion Piperacillin Sod/Tazobactam 100 mls @ 200 mls/hr 10/12/24 11:00 10/12/24 11:58 Sod 3.375 gm/ Sodium Chloride IVPB Infused Q6H [facility] Infusion <Liliana Horvath MD - Last Filed: 10/13/24 11:54> Generic Name Dose Route Start Last Admin Trade Name Freq PRN Reason Stop Dose Admin Acetaminophen 1,000 mg 10/11/24 09:29 10/13/24 01:14 Acetaminophen 500 Mg Tablet PO 1,000 mg Q6H PRN Administration Pain Aspirin 81 mg 10/11/24 09:00 10/13/24 08:23 Aspirin 81 Mg Tab.Chew PO 81 mg DAILY [place] Administration Doxycycline Hyclate 100 mg 10/12/24 21:00 10/13/24 08:23 Doxycycline Hyclate 100 Mg PO 100 mg BID [place] Administration Enoxaparin Sodium 40 mg 10/11/24 21:00 10/12/24 21:01 Enoxaparin 40 Mg/0.4 Ml Inj SUBCUT 40 mg HS [place] Administration Insulin Aspart 0 unit 10/11/24 07:30 10/13/24 08:01 Insulin Aspart 100 Unit/Ml SUBCUT Not Given ACHS [facility] Protocol Metoclopramide HCl 10 mg 10/12/24 00:20 10/12/24 00:59 Metoclopramide Hcl 5 Mg/Ml Inj IVP 10 mg Q6H PRN Administration Ondansetron HCl 4 mg 10/11/24 02:29 10/11/24 21:59 Ondansetron 2 Mg/Ml Inj IVP 4 mg Q4H PRN Administration Nausea Simvastatin 40 mg 10/12/24 21:00 10/12/24 21:02 Simvastatin 40 Mg Tablet PO 40 mg HS [place] Administration Sodium Chloride 5 ml 10/11/24 09:00 10/13/24 08:24 Sodium Chloride 0.9 % (Flush) 10 Ml Syringe IVF 5 ml BID [place] Administration Discontinued Medications Generic Name Dose Route Start Last Admin Trade Name Freq PRN Reason Stop Dose Admin Acetaminophen 650 mg 10/10/24 23:01 10/10/24 23:09 Acetaminophen 325 Mg Tablet PO 10/10/24 23:02 650 mg ONCE ONE Administration Acetaminophen 650 mg 10/11/24 02:29 10/11/24 05:54 Acetaminophen 325 Mg Tablet PO 650 mg Q6H PRN Administration Pain Sodium Chloride 2,259 mls @ 753 mls/hr 10/10/24 23:00 10/11/24 01:36 0.9 % Sodium Chloride 1000 Ml 30 ml/kg infuse over 3 hr (2259 ml) 10/11/24 01:59 Infused IV Infusion .Q3H [facility] Piperacillin Sod/Tazobactam 100 mls @ 200 mls/hr 10/10/24 23:34 10/11/24 00:12 Sod 3.375 gm/ Sodium Chloride IVPB 10/10/24 23:35 Infused ONCE ONE Infusion Vancomycin/PEG/NADA/Lysine/Water 1.75 gm in 350 mls @ 200 mls/hr 10/10/24 23:44 10/11/24 02:11 Vancomycin 1.75 Gm/350 Ml IVPB 10/11/24 01:28 Infused ONCE ONE Infusion Protocol Cefepime HCl 2 gm/ Sodium 100 mls @ 200 mls/hr 10/11/24 02:45 10/12/24 11:14 Chloride IVPB Not Given Q8H [facility] Sodium Chloride 1,000 mls @ 125 mls/hr 10/11/24 02:38 10/13/24 05:55 0.9 % Sodium Chloride 1000 Ml IV Infused .Q8H [facility] Infusion Vancomycin/PEG/NADA/Lysine/Water 1.25 gm in 250 mls @ 166.667 mls/hr 10/12/24 00:00 10/12/24 01:59 Vancomycin 1.25 Gm/250 Ml IVPB Infused Q24H [facility] Infusion Doxycycline Hyclate 100 mg/ 100 mls @ 100 mls/hr 10/11/24 10:00 10/12/24 11:13 Sodium Chloride IVPB Infused Q12H [facility] Infusion Acetaminophen 1,000 mg in 100 mls @ 400 mls/hr 10/12/24 00:21 10/12/24 01:29 Acetaminophen Inj IVPB 10/12/24 00:35 Infused ONCE ONE Infusion Piperacillin Sod/Tazobactam 100 mls @ 200 mls/hr 10/12/24 11:00 10/12/24 11:58 Sod 3.375 gm/ Sodium Chloride IVPB Infused Q6H [facility] Infusion <Annemarie Will MD - Last Filed: 10/11/24 01:56> MDM - Fever Lab Data Attestation: I reviewed the patient's lab results. <Liliana Horvath MD - Last Filed: 10/13/24 11:54> Labs: Lab Results 10/10/24 10/10/24 10/10/24 Range/Units 22:30 22:41 23:35 WBC 19.21 H (4.50-11.00) K/uL RBC 4.58 (4.30-5.90) m/uL Hgb 13.7 (13.5-17.5) gm/dL Hct 40.1 (37.0-53.0) % MCV 88 (80-100) fL MCH 30 (26-34) pg MCHC 34 (32-36) gm/dL RDW Coeff of Dre 12.6 (11.5-15.5) % Plt Count 134 L (140-440) K/uL Neut % (Auto) 80.4 H (42.0-72.0) % Lymph % (Auto) 5.8 L (20-44) % [place] % (Auto) 12.4 H (0.0-11.0) % Eos % (Auto) 0.0 (0.0-7.0) % Baso % (Auto) 0.2 (0.0-3.0) % Neut # (Auto) 15.40 H (1.7-7.0) K/uL Lymph # (Auto) 1.10 (0.90-2.90) K/uL [place] # (Auto) 2.40 H (0.00-0.90) K/UL Eos # (Auto) 0.00 (0.00-0.50) K/uL Baso # (Auto) 0.00 (0.00-0.30) K/uL Abs Immat Gran (auto) 0.20 (0.00-0.30) K/uL Imm/Tot Granulo (auto) 1.2 % VBG pH 7.449 H (7.32-7.43) VBG pCO2 33 L (40-50) mmHG VBG pO2 42.3 (25-47) mmHG VBG HCO3 23 (21-28) mmol/L Sodium 132 L (135-149) mmol/L Potassium 3.9 (3.6-5.1) mmol/L Chloride 101 (96-114) mmol/L Carbon Dioxide 22 (20-32) mmol/L Anion Gap 9 (7-15) mEq/L BUN 25 (7-30) mg/dL Creatinine 1.1 (0.5-1.5) mg/dL Estimated Creat Clear 59.90 Estimated GFR 69 ml/min Glucose 190 H (60-115) mg/dL Lactate 2.7 H (0.5-1.9) mmol/L Calcium 8.6 (8.4-10.6) mg/dL Total Bilirubin 1.4 (0.1-1.5) mg/dL Direct Bilirubin 0.4 (0.0-0.5) mg/dL AST 50 H (12-35) U/L ALT 42 (4-50) U/L Alkaline Phosphatase 54 (40-150) U/L C-Reactive Protein 1.0 (0.5-1.0) mg/dL Total Protein 7.1 (6.0-8.3) g/dL Albumin 4.0 (3.3-5.0) g/dL Urine Color Yellow (Yellow) Urine Appearance Slightly Cloudy A (Clear) Urine pH 5.5 (5.0-8.5) Ur Specific [place] 1.025 (1.000-1.030) Urine Protein 2+ A (Negative) Urine Glucose (UA) Trace A (Negative) Urine Ketones 1+ A (Negative) Urine Blood 2+ A (Negative) Urine Nitrite Negative (Negative) Urine Bilirubin Negative (Negative) Urine Urobilinogen 0.2 (0.2-1.0) Ur Leukocyte Esterase Negative (Negative) Urine RBC 2-5 A (0-2) Urine WBC 0-2 (0-5) Ur Squamous Epith Cells Few (None-Few) Urine Bacteria Few A (None) SARS-CoV-2 (PCR) Negative SARS-CoV-2 (Negative) Influenza Type A (PCR) Negative PCR FLU A (Negative) Influenza Type B (PCR) Negative PCR FLU B (Negative) RSV (PCR) Negative PCR RSV (Negative) 10/11/24 Range/Units 01:20 WBC (4.50-11.00) K/uL RBC (4.30-5.90) m/uL Hgb (13.5-17.5) gm/dL Hct (37.0-53.0) % MCV (80-100) fL MCH (26-34) pg MCHC (32-36) gm/dL RDW Coeff of Dre (11.5-15.5) % Plt Count (140-440) K/uL Neut % (Auto) (42.0-72.0) % Lymph % (Auto) (20-44) % [place] % (Auto) (0.0-11.0) % Eos % (Auto) (0.0-7.0) % Baso % (Auto) (0.0-3.0) % Neut # (Auto) (1.7-7.0) K/uL Lymph # (Auto) (0.90-2.90) K/uL [place] # (Auto) (0.00-0.90) K/UL Eos # (Auto) (0.00-0.50) K/uL Baso # (Auto) (0.00-0.30) K/uL Abs Immat Gran (auto) (0.00-0.30) K/uL Imm/Tot Granulo (auto) % VBG pH (7.32-7.43) VBG pCO2 (40-50) mmHG VBG pO2 (25-47) mmHG VBG HCO3 (21-28) mmol/L Sodium (135-149) mmol/L Potassium (3.6-5.1) mmol/L Chloride (96-114) mmol/L Carbon Dioxide (20-32) mmol/L Anion Gap (7-15) mEq/L BUN (7-30) mg/dL Creatinine (0.5-1.5) mg/dL Estimated Creat Clear Estimated GFR ml/min Glucose (60-115) mg/dL Lactate 1.0 (0.5-1.9) mmol/L Calcium (8.4-10.6) mg/dL Total Bilirubin (0.1-1.5) mg/dL Direct Bilirubin (0.0-0.5) mg/dL AST (12-35) U/L ALT (4-50) U/L Alkaline Phosphatase (40-150) U/L C-Reactive Protein (0.5-1.0) mg/dL Total Protein (6.0-8.3) g/dL Albumin (3.3-5.0) g/dL Urine Color (Yellow) Urine Appearance (Clear) Urine pH (5.0-8.5) Ur Specific [place] (1.000-1.030) Urine Protein (Negative) Urine Glucose (UA) (Negative) Urine Ketones (Negative) Urine Blood (Negative) Urine Nitrite (Negative) Urine Bilirubin (Negative) Urine Urobilinogen (0.2-1.0) Ur Leukocyte Esterase (Negative) Urine RBC (0-2) Urine WBC (0-5) Ur Squamous Epith Cells (None-Few) Urine Bacteria (None) SARS-CoV-2 (PCR) (Negative) Influenza Type A (PCR) (Negative) Influenza Type B (PCR) (Negative) RSV (PCR) (Negative) <Liliana Horvath MD - Last Filed: 10/13/24 11:54> Lab Results 10/10/24 10/10/24 10/10/24 Range/Units 22:30 22:41 23:35 WBC 19.21 H (4.50-11.00) K/uL RBC 4.58 (4.30-5.90) m/uL Hgb 13.7 (13.5-17.5) gm/dL Hct 40.1 (37.0-53.0) % MCV 88 (80-100) fL MCH 30 (26-34) pg MCHC 34 (32-36) gm/dL RDW Coeff of Dre 12.6 (11.5-15.5) % Plt Count 134 L (140-440) K/uL Neut % (Auto) 80.4 H (42.0-72.0) % Lymph % (Auto) 5.8 L (20-44) % [place] % (Auto) 12.4 H (0.0-11.0) % Eos % (Auto) 0.0 (0.0-7.0) % Baso % (Auto) 0.2 (0.0-3.0) % Neut # (Auto) 15.40 H (1.7-7.0) K/uL Lymph # (Auto) 1.10 (0.90-2.90) K/uL [place] # (Auto) 2.40 H (0.00-0.90) K/UL Eos # (Auto) 0.00 (0.00-0.50) K/uL Baso # (Auto) 0.00 (0.00-0.30) K/uL Abs Immat Gran (auto) 0.20 (0.00-0.30) K/uL Imm/Tot Granulo (auto) 1.2 % VBG pH 7.449 H (7.32-7.43) VBG pCO2 33 L (40-50) mmHG VBG pO2 42.3 (25-47) mmHG VBG HCO3 23 (21-28) mmol/L Sodium 132 L (135-149) mmol/L Potassium 3.9 (3.6-5.1) mmol/L Chloride 101 (96-114) mmol/L Carbon Dioxide 22 (20-32) mmol/L Anion Gap 9 (7-15) mEq/L BUN 25 (7-30) mg/dL Creatinine 1.1 (0.5-1.5) mg/dL Estimated Creat Clear 59.90 Estimated GFR 69 ml/min Glucose 190 H (60-115) mg/dL Lactate 2.7 H (0.5-1.9) mmol/L Calcium 8.6 (8.4-10.6) mg/dL Total Bilirubin 1.4 (0.1-1.5) mg/dL Direct Bilirubin 0.4 (0.0-0.5) mg/dL AST 50 H (12-35) U/L ALT 42 (4-50) U/L Alkaline Phosphatase 54 (40-150) U/L C-Reactive Protein 1.0 (0.5-1.0) mg/dL Total Protein 7.1 (6.0-8.3) g/dL Albumin 4.0 (3.3-5.0) g/dL Urine Color Yellow (Yellow) Urine Appearance Slightly Cloudy A (Clear) Urine pH 5.5 (5.0-8.5) Ur Specific [place] 1.025 (1.000-1.030) Urine Protein 2+ A (Negative) Urine Glucose (UA) Trace A (Negative) Urine Ketones 1+ A (Negative) Urine Blood 2+ A (Negative) Urine Nitrite Negative (Negative) Urine Bilirubin Negative (Negative) Urine Urobilinogen 0.2 (0.2-1.0) Ur Leukocyte Esterase Negative (Negative) Urine RBC 2-5 A (0-2) Urine WBC 0-2 (0-5) Ur Squamous Epith Cells Few (None-Few) Urine Bacteria Few A (None) SARS-CoV-2 (PCR) Negative SARS-CoV-2 (Negative) Influenza Type A (PCR) Negative PCR FLU A (Negative) Influenza Type B (PCR) Negative PCR FLU B (Negative) RSV (PCR) Negative PCR RSV (Negative) 10/11/24 Range/Units 01:20 WBC (4.50-11.00) K/uL RBC (4.30-5.90) m/uL Hgb (13.5-17.5) gm/dL Hct (37.0-53.0) % MCV (80-100) fL MCH (26-34) pg MCHC (32-36) gm/dL RDW Coeff of Dre (11.5-15.5) % Plt Count (140-440) K/uL Neut % (Auto) (42.0-72.0) % Lymph % (Auto) (20-44) % [place] % (Auto) (0.0-11.0) % Eos % (Auto) (0.0-7.0) % Baso % (Auto) (0.0-3.0) % Neut # (Auto) (1.7-7.0) K/uL Lymph # (Auto) (0.90-2.90) K/uL [place] # (Auto) (0.00-0.90) K/UL Eos # (Auto) (0.00-0.50) K/uL Baso # (Auto) (0.00-0.30) K/uL Abs Immat Gran (auto) (0.00-0.30) K/uL Imm/Tot Granulo (auto) % VBG pH (7.32-7.43) VBG pCO2 (40-50) mmHG VBG pO2 (25-47) mmHG VBG HCO3 (21-28) mmol/L Sodium (135-149) mmol/L Potassium (3.6-5.1) mmol/L Chloride (96-114) mmol/L Carbon Dioxide (20-32) mmol/L Anion Gap (7-15) mEq/L BUN (7-30) mg/dL Creatinine (0.5-1.5) mg/dL Estimated Creat Clear Estimated GFR ml/min Glucose (60-115) mg/dL Lactate 1.0 (0.5-1.9) mmol/L Calcium (8.4-10.6) mg/dL Total Bilirubin (0.1-1.5) mg/dL Direct Bilirubin (0.0-0.5) mg/dL AST (12-35) U/L ALT (4-50) U/L Alkaline Phosphatase (40-150) U/L C-Reactive Protein (0.5-1.0) mg/dL Total Protein (6.0-8.3) g/dL Albumin (3.3-5.0) g/dL Urine Color (Yellow) Urine Appearance (Clear) Urine pH (5.0-8.5) Ur Specific [place] (1.000-1.030) Urine Protein (Negative) Urine Glucose (UA) (Negative) Urine Ketones (Negative) Urine Blood (Negative) Urine Nitrite (Negative) Urine Bilirubin (Negative) Urine Urobilinogen (0.2-1.0) Ur Leukocyte Esterase (Negative) Urine RBC (0-2) Urine WBC (0-5) Ur Squamous Epith Cells (None-Few) Urine Bacteria (None) SARS-CoV-2 (PCR) (Negative) Influenza Type A (PCR) (Negative) Influenza Type B (PCR) (Negative) RSV (PCR) (Negative) <Annemarie Will MD - Last Filed: 10/11/24 01:56> Imaging Data CT scan - head: Attestation: I have reviewed the pertinent imaging results. <Liliana Boyer MD - Last Filed: 10/13/24 11:54> Radiologist's impression: Patient: VIN MURCIA Facility:?[facility] Patient ID:?[id number] Site Patient ID:?[id number]. Site :?[id number] Study:?CT-Head W/O-10/10/2024 11:19:17 PM Ordering Physician:Kimberly Ford Final Report: INDICATION: Fell and hit head. TECHNIQUE: CT head without contrast. COMPARISON: None. FINDINGS: CSF spaces: Within normal limits for age. Brain parenchyma and extra-axial spaces: Mild generalized volume loss consistent with physiologic aging. Mild periventricular white matter hypoattenuation suggestive of chronic microvascular disease. No sign of mass, hemorrhage, or midline shift. No extra-axial fluid collection. Skull base and calvarium: Mild bilateral paranasal sinus mucosal thickening with small maxillary sinus mucous retention cysts. Mastoids are clear. Bilateral lens replacements. Mild right frontal scalp soft tissue swelling, but no underlying fracture. IMPRESSION: No acute intracranial abnormality. No acute fracture. Please note that all CT scans at this facility use dose modulation, iterative reconstruction, and/or weight-based dosing when appropriate to reduce radiation dose to as low as reasonably achievable. Dictated by Douglas Collier MD @ 10/11/2024 12:01:50 AM (Electronic Signature) <Liliana Horvath MD - Last Filed: 10/13/24 11:54> Chest x-ray: Attestation: I have reviewed the pertinent imaging results. <Liliana Boyer MD - Last Filed: 10/13/24 11:54> Radiologist's impression: Patient: VIN MURCIA Facility:?[facility] Patient ID:?[id number] Site Patient ID:?[id number]. Site :?[id number] Study:?XRay-Chest 1V-10/10/2024 10:58:56 PM Ordering Physician:Kimberly Ford Final Report: INDICATION: Fever. TECHNIQUE: Chest 1 view. COMPARISON: CT chest dated 06/01/2024. FINDINGS: Unremarkable cardiomediastinal contours. Redemonstrated diffuse interstitial prominence in the setting of previously demonstrated interstitial lung disease. Right inferior perihilar 1.1 cm nodular focus may reflect the focused demonstrated on the prior CT chest. Otherwise, no evident new focal consolidation. No sign of pleural effusion. No pneumothorax. No acute osseous or soft tissue findings. IMPRESSION: 1. No evident new focal consolidation. 2. Right inferior perihilar 1.1 cm nodular focus may reflect the focused demonstrated on the prior CT chest. Notably, the report from 06/01/2024 recommended a follow-up CT chest in 3 months, PET-CT, or tissue sampling. There are no evident interval follow-up studies at this institution. Dictated by Bassam Negron MD @ 10/10/2024 11:39:39 PM (Electronic Signature) <Liliana Horvath MD - Last Filed: 10/13/24 11:54> CT scan - abdomen: Attestation: I have reviewed the pertinent imaging results. <Annemarie Will MD - Last Filed: 10/11/24 01:56> My impression: No signs of kidney stones nor other unusual masses. Noncontrast study is suboptimal for evaluation for other pathology. <Annemarie Will MD - Last Filed: 10/11/24 01:56> Radiologist's impression: IMPRESSION: : No current kidney or ureteral stones and no hydronephrosis. No specific findings to explain flank pain. Please note that all CT scans at this facility use dose modulation, iterative reconstruction, and/or weight-based dosing when appropriate to reduce radiation dose to as low as reasonably achievable. Dictated by Bassam Negron MD @ 10/11/2024 12:35:45 AM <Annemarie Will MD - Last Filed: 10/11/24 01:56> CT Chest/Ab/Pelvis: Attestation: I have reviewed the pertinent imaging results. <Annemarie Will MD - Last Filed: 10/11/24 01:56> My impression: No signs of pulmonary infiltrate, hydronephrosis, kidney stone, diverticulitis. Mild bladder wall thickening noted. <Annemarie Will MD - Last Filed: 10/11/24 01:56> Radiologist's impression: IMPRESSION: 1. Mild bladder wall thickening may be exaggerated by underdistention, however clinical correlation recommended to exclude cystitis. 2. Otherwise no acute intrathoracic or intra-abdominal/pelvic pathology appreciated. 3. Cholelithiasis without CT evidence of acute cholecystitis. 4. Stable pulmonary nodules when compared to previous CT of the chest from 06/01/2024 with largest measuring 12 mm within the right lower lobe. Consider follow-up CT chest in 3-6 months to ensure continued stability. 5. Mild prostatomegaly. <Annemarie Will MD - Last Filed: 10/11/24 01:56> ECG Data Attestation: I personally reviewed and interpreted this ECG as follows: (Normal sinus rhythm, 80 beats per minute, some artifact but no definitive ischemia or infarct noted.) <Liliana Horvath MD - Last Filed: 10/13/24 11:54> ECG interpretation date: 10/10/24 <Liliana Horvath MD - Last Filed: 10/13/24 11:54> ECG interpretation time: 23:04 <Liliana Horvath MD - Last Filed: 10/13/24 11:54> Discharge Plan Discharge Clinical Impression: Sepsis due to urinary tract infection, Weakness <Liliana Horvath MD - Last Filed: 10/13/24 11:54> Patient Disposition: Admitted As Inpatient <Liliana Horvath MD - Last Filed: 10/13/24 11:54> Procedures ABG Interpretation ABG Results: 10/10/24 22:30 VBG pH 7.449 H VBG pCO2 33 L VBG pO2 42.3 VBG HCO3 23 <Liliana Horvath MD - Last Filed: 10/13/24 11:54> 10/10/24 22:30 VBG pH 7.449 H VBG pCO2 33 L VBG pO2 42.3 VBG HCO3 23 <Annemarie Will MD - Last Filed: 10/11/24 01:56>
--- NOTE | 2024-10-10 22:41 | CRLHL7_ITS ---
For Patients: As a result of the Century Cures Act, medical imaging exams and procedure reports are released immediately into your electronic medical record. You may view this report before your referring provider. If you have questions, please contact your health care provider. INDICATION: Fever. TECHNIQUE: Chest 1 view. COMPARISON: CT chest dated 06/01/2024. FINDINGS: Unremarkable cardiomediastinal contours. Redemonstrated diffuse interstitial prominence in the setting of previously demonstrated interstitial lung disease. Right inferior perihilar 1.1 cm nodular focus may reflect the focused demonstrated on the prior CT chest. Otherwise, no evident new focal consolidation. No sign of pleural effusion. No pneumothorax. No acute osseous or soft tissue findings. IMPRESSION: 1. No evident new focal consolidation. 2. Right inferior perihilar 1.1 cm nodular focus may reflect the focused demonstrated on the prior CT chest. Notably, the report from 06/01/2024 recommended a follow-up CT chest in 3 months, PET-CT, or tissue sampling. There are no evident interval follow-up studies at this institution. Dictated by Bassam Negron MD @ 10/10/2024 11:39:39 PM (Electronically Signed)
[2024-10-10 22:48] LABS: HCO3 VBG 23 mmol/L (21-28); Lactate* 2.7 mmol/L (0.5-1.9); PCO2 VBG 33 mmHG (40-50); PO2 VBG 42.3 mmHG (25-47); pH VBG 7.449 (7.32-7.43)
[2024-10-10 22:51] LABS: Hematocrit 40.1 % (37.0-53.0); Hemoglobin* 13.7 gm/dL (13.5-17.5); Immature Granulocytes Pct Auto 1.2 %; Mean Corpuscular HGB Conc 34 gm/dL (32-36); Mean Corpuscular Hemoglobin 30 pg (26-34); Mean Corpuscular Volume 88 fL (80-100); RDW Coefficient of Variation % 12.6 % (11.5-15.5); Red Blood Count 4.58 m/uL (4.30-5.90); White Blood Count* 19.21 K/uL (4.50-11.00)
[2024-10-10] MEDS: SODIUM CHLORIDE 753 ML IV ×2 (22:51→23:59)
[2024-10-10 23:00] LABS: Immature Granulocytes Abs Auto 0.20 K/uL (0.00-0.30); Lymphocytes Absolute Auto 1.10 K/uL (0.90-2.90); Slide Review Reflex No
--- NOTE | 2024-10-10 23:03 | CRLHL7_ITS ---
For Patients: As a result of the Century Cures Act, medical imaging exams and procedure reports are released immediately into your electronic medical record. You may view this report before your referring provider. If you have questions, please contact your health care provider. INDICATION: Fell and hit head. TECHNIQUE: CT head without contrast. COMPARISON: None. FINDINGS: CSF spaces: Within normal limits for age. Brain parenchyma and extra-axial spaces: Mild generalized volume loss consistent with physiologic aging. Mild periventricular white matter hypoattenuation suggestive of chronic microvascular disease. No sign of mass, hemorrhage, or midline shift. No extra-axial fluid collection. Skull base and calvarium: Mild bilateral paranasal sinus mucosal thickening with small maxillary sinus mucous retention cysts. Mastoids are clear. Bilateral lens replacements. Mild right frontal scalp soft tissue swelling, but no underlying fracture. IMPRESSION: No acute intracranial abnormality. No acute fracture. Please note that all CT scans at this facility use dose modulation, iterative reconstruction, and/or weight-based dosing when appropriate to reduce radiation dose to as low as reasonably achievable. Dictated by Douglas Collier MD @ 10/11/2024 12:01:50 AM (Electronically Signed)
[2024-10-10 23:05] LABS: Albumin* 4.0 g/dL (3.3-5.0); Chloride* 101 mmol/L (96-114); Sodium* 132 mmol/L (135-149)
[2024-10-10 23:06] LABS: Potassium* 3.9 mmol/L (3.6-5.1)
[2024-10-10 23:08] LABS: Blood Urea Nitrogen* 25 mg/dL (7-30); Creatinine* 1.1 mg/dL (0.5-1.5); Est. Creatinine Clearance* 59.90; Estimated Glomerular Filt Rate 69 ml/min; Total Protein* 7.1 g/dL (6.0-8.3)
[2024-10-10 23:09] LABS: Alanine Aminotransferase* 42 U/L (4-50); Alkaline Phosphatase* 54 U/L (40-150); Aspartate Amino Transferase* 50 U/L (12-35); Bilirubin Direct* 0.4 mg/dL (0.0-0.5); Bilirubin Total* 1.4 mg/dL (0.1-1.5); Calcium* 8.6 mg/dL (8.4-10.6); Glucose* 190 mg/dL (60-115)
[2024-10-10] MEDS: ACETAMINOPHEN 325 MG TABLET 650 MG PO (23:09)
[2024-10-10 23:24] LABS: Anion Gap 9 mEq/L (7-15); Carbon Dioxide* 22 mmol/L (20-32)
--- NOTE | 2024-10-10 23:24 | CRLHL7_ITS ---
For Patients: As a result of the Century Cures Act, medical imaging exams and procedure reports are released immediately into your electronic medical record. You may view this report before your referring provider. If you have questions, please contact your health care provider. INDICATION: Flank pain, kidney stone suspected. TECHNIQUE: CT abdomen and pelvis without contrast, stone protocol. COMPARISON: None. FINDINGS: Noncontrast technique limits solid organ evaluation. Kidney/ureters: Kidneys are normal in caliber. No kidney or ureteral stones and no hydronephrosis. Mild nonspecific perinephric fat stranding, likely senescent. Ureters are normal in caliber. The urinary bladder is under distended secondary to Watkins catheter, limiting evaluation. Liver: Unremarkable. Gallbladder: Cholelithiasis without discrete evidence of acute cholecystitis. Bile ducts: No biliary dilatation. Spleen: Unremarkable. Pancreas: Unremarkable. Adrenal glands: Unremarkable. GI tract: The bowel is unremarkable. Abdominal wall/omentum/peritoneum: No free air or significant free fluid. No mass or inflammation. Lymph nodes: No lymphadenopathy. Pelvis: Unremarkable pelvis. Lower chest: Moderate bibasilar subpleural fibrosis. Bones: No acute or suspicious osseous abnormalities. In the right S1-2 neural foramen, there is a redemonstrated round hypodense focus with mild internal stippled calcification, which may reflect a Tarlov cyst. Redemonstrated grade 1 spondylolisthesis of L5-S1 secondary to chronic bilateral L5 pars defects. IMPRESSION: : No current kidney or ureteral stones and no hydronephrosis. No specific findings to explain flank pain. Please note that all CT scans at this facility use dose modulation, iterative reconstruction, and/or weight-based dosing when appropriate to reduce radiation dose to as low as reasonably achievable. Dictated by Bassam Negron MD @ 10/11/2024 12:35:45 AM (Electronically Signed)
[2024-10-10 23:28] LABS: PCR FLU A Negative PCR FLU A (Negative); PCR FLU B Negative PCR FLU B (Negative); PCR RSV Negative PCR RSV (Negative); SARS PCR* Negative SARS-CoV-2 (Negative)
[2024-10-10] MEDS: PIPERACILLIN/TAZOBACTAM 3.375 GM in 0.9 % SODIUM CHLORIDE Mini-bag 100 ML IVPB (23:38)
[2024-10-10 23:42] LABS: Appearance Urine Slightly Cloudy (Clear)
--- NOTE | 2024-10-10 23:44 | ED.NURSE ---
16 estonian booth cath placed
[2024-10-11] VITALS (16 sets, daily range): BP systolic 105–139; BP diastolic 57–82; PULSE 71–77; RESP 16–24; TEMP 36.9–37.6; O2SAT 92–98; BMI 24.0
[2024-10-11] MEDS: VANCOMYCIN 1.75 GM/350 ML 1.75 GM/350 ML PIGGYBACK IVPB (00:20)
--- NOTE | 2024-10-11 00:39 | CRLHL7_ITS ---
For Patients: As a result of the Century Cures Act, medical imaging exams and procedure reports are released immediately into your electronic medical record. You may view this report before your referring provider. If you have questions, please contact your health care provider. INDICATION: Fever, sepsis, and flank pain. TECHNIQUE: CT chest, abdomen and pelvis acquired 91 cc Isovue 370 IV contrast. COMPARISON: CT abdomen pelvis 10/10/2024. CT chest 06/01/2024. FINDINGS: CHEST: Cardiovascular structures: No cardiomegaly or pericardial effusion. There are coronary artery calcifications. Main pulmonary artery is normal in caliber. No thoracic aortic aneurysm. Mediastinum and [place]: No suspicious lymphadenopathy. Lungs and pleura: Right lower lobe pulmonary nodule measuring 12 mm (series 3, image 53), unchanged. Additional smaller bilateral pulmonary nodules also grossly unchanged. Stable fibrotic changes. No focal consolidation. No pleural effusion or pneumothorax. Patent central airways. Chest wall and axilla: No suspicious chest wall mass or fluid collection. No axillary lymphadenopathy. Bones: No acute abnormality. ABDOMEN AND PELVIS: Liver: Unremarkable. Gallbladder and bile ducts: Cholelithiasis. No gallbladder wall thickening or pericholecystic fluid. No biliary dilatation. Pancreas: Unremarkable. Spleen: Unremarkable. Adrenal glands: Unremarkable. Kidneys: Symmetric renal enhancement. No hydronephrosis or hydroureter. No urinary calculi identified. GI tract: No bowel obstruction. No suspicious bowel wall thickening. Normal appendix. Vascular structures: Grossly patent vasculature. No abdominal aortic aneurysm. Minimal atherosclerotic calcification. Lymph nodes: No suspicious lymphadenopathy. Peritoneum/Retroperitoneum/Abdominal Wall: No ascites or pneumoperitoneum. No acute abdominal wall abnormality. No intra-abdominal/pelvic fluid collection. Chronic bilateral L5 spondylolysis. Right-sided S1-S2 Tarlov cyst. Pelvic Organs: Watkins catheter noted within the bladder with small foci of intraluminal bladder gas, likely postprocedural. Mild bladder wall thickening. Mild prostatomegaly. Bones and superficial soft tissues: No acute abnormality. IMPRESSION: 1. Mild bladder wall thickening may be exaggerated by underdistention, however clinical correlation recommended to exclude cystitis. 2. Otherwise no acute intrathoracic or intra-abdominal/pelvic pathology appreciated. 3. Cholelithiasis without CT evidence of acute cholecystitis. 4. Stable pulmonary nodules when compared to previous CT of the chest from 06/01/2024 with largest measuring 12 mm within the right lower lobe. Consider follow-up CT chest in 3-6 months to ensure continued stability. 5. Mild prostatomegaly. Please note that all CT scans at this facility use dose modulation, iterative reconstruction, and/or weight-based dosing when appropriate to reduce radiation dose to as low as reasonably achievable. Dictated by Benitez Conte MD @ 10/11/2024 1:27:24 AM (Electronically Signed)
[2024-10-11 01:22] LABS: Lactate* 1.0 mmol/L (0.5-1.9)
--- NOTE | 2024-10-11 02:40 | W.PM.TELEH&P ---
Telehealth- H&P: HPI History of Present Illness Time Seen by Provider: 02:40 Date Seen: 10/11/24 Chief complaint: weakness Narrative: Karsten Arthur is seen as an Interactive Telehealth visit. Karsten Arthur is a 79 year old male who is This is 79-year-old male with a past medical history of diabetes, hypertension, dyslipidemia, nephrolithiasis, who presents to the emergency room with a complaint of weakness and fever and shaking. Patient was seen yesterday as well with complaint of weakness but did not have fever. Patient had normal workup so he was sent home. Patient now reports that is his weakness is getting worse which is generalized weakness with fever and shaking. Patient denies any abdominal pain or nausea vomiting or urinary symptoms. No chest pain or cough or shortness of breath. On arrival to emergency room patient was febrile with a temperature of 101 ?F with rest of vital stable. Patient workup in the emergency room shows elevated white count of 19,000 with elevated white lactic acid. 2.7. LFTs normal. Chest x-ray shows no acute finding. CT abdomen pelvis was done shows mild bladder wall thickening and otherwise unremarkable for acute finding. Urinalysis was done is negative for infection. COVID influenza is negative. Patient was given sepsis fluid bolus along with broad-spectrum antibiotic and was referred to hospital service for admission for sepsis of unknown source of infection. Review of Systems Narrative: All systems reviewed and stated as negative per the patient except as stated in HPI. GEN:+ fever or chills,+ fatigue Eye: denies visual changes HENT: denies throat pain RESP: denies shortness of breath, cough or sputum production CARDIAC: denies chest pain or palpitations GI: denies nausea, vomiting, or diarrhea SKIN: denies rash. PFSH PFS Medical History Kidney stone ?N20.0 - Calculus of kidney (ICD-10) Pulmonary nodule ?R91.1 - Solitary pulmonary nodule (ICD-10) History of nephrolithiasis ?Z87.442 - Personal history of urinary calculi (ICD-10) Social History What is your current living situation?: I presently have a place to live Problems where you live: no known problems In the past 12 months, utilities in danger of being shut off: no In past 12 months, lack of transportation kept you from medical appts, meetings, work, or getting things needed for daily living: no In the past 12 mos, have been you worried that your food would run out before you had money to buy more?: never true In the past 12 mos, the food you bought just didn't last and you didn't have money to buy more?: never true Smoking Status: Never smoker Do you use any of these nicotine containing products: None Second hand tobacco smoke exposure: No How often do you have a drink containing alcohol: never How often do you have six or more drinks on one occasion: Never AUDIT-C Alcohol total score: 0 Non-prescribed substance use: denies use Caffeine: No How often does anyone, including family, friends and others, physically hurt you: never How often does anyone, including family, friends and others, insult or talk down to you: never How often does anyone, including family, friends and others, threaten you with harm: never How often does anyone, including family, friends and others, scream or curse at you: never service: No Meds Home Medications and Allergies Home Medications ?Medication ?Instructions ?Recorded ?Confirmed ?Type aspirin 81 mg chewable tablet 81 mg PO QDAY 12/02/21 10/11/24 History metformin 500 mg tablet 500 mg PO .COMPLEX #450 tabs 04/24/24 10/11/24 Rx ramipril 10 mg capsule 20 mg (2 x 10 mg) PO QDAY Diabetes 04/24/24 10/11/24 Rx #180 caps simvastatin 40 mg tablet 40 mg PO .Bedtime #90 tabs 04/24/24 10/11/24 Rx semaglutide 0.25 mg or 0.5 mg (2 0.25 mg (0.368 mL) subcut QWEEK 05/03/24 10/11/24 Rx mg/3 mL) subcutaneous pen injector Diabetes #9 mL Allergies Allergy/AdvReac Type Severity Reaction Status Date / Time No Known Drug Allergies Allergy Verified 10/11/24 00:55 Exam Narrative Exam Narrative: Physical Exam GENERAL: ?vital signs reviewed, well developed and nourished, in no distress HEENT: pupils are equal round and reactive to light, extraocular movements are grossly within normal limits and oral mucosa is moist. NECK: Supple without lymphadenopathy or thyromegaly according to nursing staff examination observation HEART: Regular rate and rhythm without any rubs, murmurs, or gallops. LUNGS: Clear to auscultation bilaterally with good air movement throughout ABDOMEN: Observation from nurse assisted exam, abdomen appears soft, nontender, and nondistended with Positive bowel sounds noted. EXTREMITIES: Strength and sensation is observed to be grossly within normal limits in the upper and lower extremities.? No focal strength deficit is observed. SKIN:? Observed warm and dry with color normal Const Vital Signs, click to edit/add: Vital Signs - 24 hr 10/10/24 22:27 10/10/24 22:36 10/10/24 22:38 Temperature 99.5 F 101.8 F H Pulse Rate 86 Pulse Rate [Pulse Oximeter] 89 Respiratory Rate 22 Blood Pressure Blood Pressure [Right Upper Arm] 142/76 H Pulse Oximetry 96 94 Oxygen Delivery Method Room Air 10/10/24 22:41 10/10/24 22:45 10/10/24 23:00 Temperature Pulse Rate 87 82 Pulse Rate [Pulse Oximeter] Respiratory Rate 13 30 H Blood Pressure Blood Pressure [Right Upper Arm] Pulse Oximetry 94 94 94 Oxygen Delivery Method 10/10/24 23:02 10/10/24 23:09 10/10/24 23:18 Temperature 100.3 F H Pulse Rate 81 Pulse Rate [Pulse Oximeter] Respiratory Rate 29 H 26 H Blood Pressure 129/78 Blood Pressure [Right Upper Arm] Pulse Oximetry 94 Oxygen Delivery Method 10/10/24 23:30 10/10/24 23:51 10/11/24 00:01 Temperature Pulse Rate 75 72 Pulse Rate [Pulse Oximeter] Respiratory Rate 22 18 20 Blood Pressure 106/67 105/57 L Blood Pressure [Right Upper Arm] Pulse Oximetry 94 96 Oxygen Delivery Method 10/11/24 00:32 10/11/24 01:15 10/11/24 01:31 Temperature 98.5 F Pulse Rate 73 71 72 Pulse Rate [Pulse Oximeter] Respiratory Rate 20 20 16 Blood Pressure 108/58 L 119/69 111/69 Blood Pressure [Right Upper Arm] Pulse Oximetry 92 95 93 Oxygen Delivery Method 10/11/24 02:02 Temperature Pulse Rate 75 Pulse Rate [Pulse Oximeter] Respiratory Rate 19 Blood Pressure 110/65 Blood Pressure [Right Upper Arm] Pulse Oximetry 94 Oxygen Delivery Method Hospitalist - H&P: Result Labs Labs: Short CBC 10/10/24 Range/Units 22:30 WBC 19.21 H (4.50-11.00) K/uL Hgb 13.7 (13.5-17.5) gm/dL Hct 40.1 (37.0-53.0) % Plt Count 134 L (140-440) K/uL BMP 10/10/24 22:30 Sodium 132 L Potassium 3.9 Chloride 101 Carbon Dioxide 22 BUN 25 Creatinine 1.1 Glucose 190 H Calcium 8.6 Liver Function 10/10/24 Range/Units 22:30 Total Bilirubin 1.4 (0.1-1.5) mg/dL Direct Bilirubin 0.4 (0.0-0.5) mg/dL AST 50 H (12-35) U/L ALT 42 (4-50) U/L Alkaline Phosphatase 54 (40-150) U/L Albumin 4.0 (3.3-5.0) g/dL Urine 10/10/24 Range/Units 23:35 Urine Color Yellow (Yellow) Urine Appearance Slightly Cloudy A (Clear) Urine pH 5.5 (5.0-8.5) Ur Specific [place] 1.025 (1.000-1.030) Urine Protein 2+ A (Negative) Urine Glucose (UA) Trace A (Negative) Assessment and Plan Assessment and plan (1) Sepsis: Status: Acute Plan This is a 79-year-old male with past medical history presented to the emergency room with fever and weakness was found to have sepsis. 1. Sepsis: Patient will be admitted as inpatient. Unclear source of infection. Suspect bacteremia. UA and chest x-ray is normal. CT abdomen shows no other acute finding. Patient will be continued on broad-spectrum antibiotic and will follow-up urine culture as well as blood culture. Repeat lactic acid is normal. Continue IV fluid resuscitation 2. Diabetes: Hold metformin. Resume and add sliding scale 3. Hypertension: Will hold antihypertensive medication for now 4. Cardiac and diabetic diet 5. Fall precautions Patient is full code Lovenox subcu for DVT prophylaxis. Total Time Spent Total Time Spent: 70 min Telehealth Visit:? Telehealth: Statement Statement Telehealth Visit: Today's History and Physical is provided via interactive telehealth by Marshall Samayoa MD.? Patient is located at [facility].? Provider is located at [facility] [place].? Nursing staff assisted with the patient's exam. The visit being done today meets criteria for a telehealth visit and the patient or patient?s parent/guardian is aware the visit is a telehealth visit. Camera Start Time: 02:30 Camera End Time: 02:45
[2024-10-11] MEDS: CEFEPIME HCL 2 GM in 0.9 % SODIUM CHLORIDE Mini-bag 100 ML IVPB ×3 (03:01→19:10)
[2024-10-11] MEDS: ACETAMINOPHEN 325 MG TABLET 650 MG PO (05:54)
[2024-10-11 06:41] LABS: Lactate* 1.3 mmol/L (0.5-1.9)
[2024-10-11 06:46] LABS: Hematocrit 38.6 % (37.0-53.0); Hemoglobin* 13.0 gm/dL (13.5-17.5); Immature Granulocytes Pct Auto 1.0 %; Mean Corpuscular HGB Conc 34 gm/dL (32-36); Mean Corpuscular Hemoglobin 30 pg (26-34); Mean Corpuscular Volume 89 fL (80-100); RDW Coefficient of Variation % 12.7 % (11.5-15.5); Red Blood Count 4.35 m/uL (4.30-5.90); White Blood Count* 16.67 K/uL (4.50-11.00)
[2024-10-11 06:52] LABS: Immature Granulocytes Abs Auto 0.20 K/uL (0.00-0.30); Lymphocytes Absolute Auto 1.10 K/uL (0.90-2.90); Slide Review Reflex No
--- NOTE | 2024-10-11 07:00 | PC.NURSE ---
End of shift report: Pt admitted to the unit at 0215. Pt is orientated to self, unable to recall place and time. Pt answers questions with short responses. VSS. On RA. Pt denies pain, headache and nausea. Pt reports dizziness and the ?shivers.? No diaphoresis noted. On admission pts temp was 99.4 upon reassessment temp was 99.6, prn tylenol given. Watkins is intact and patent. Pt has an abrasion on the top of right side of his head from a prior fall, open to air. Pt also has nonblanchable redness on his coccyx, open to air. Pt reports feeling really tired. Bed alarm on, call light within reach.?
--- NOTE | 2024-10-11 09:31 | PM.IMPN1 ---
Assessment and Plan Assessment and plan (1) Sepsis: Problem comment: On admission febrile, tachypneic, hypotensive, leukocytosis with left shift - trending down, lactate 2.7 - normalized to 1.3, VBG pH 7.449, pCO2 33 Unknown source at this time, see below Continue cefepime and vancomycin Continue NS at 125ml. Received sepsis resuscitation fluids, NS 30 mL/kg for a total of 2259 mL Added doxycycline for Lyme coverage - IV for now while nauseous, transition to oral when able Status: Acute (2) Fever, unknown origin: Problem comment: 101.8? on admission, low-grade > 99? overnight CT chest abdomen pelvis shows no acute intrathoracic or intra-abdominal/pelvic pathology. CT abdomen pelvis 24 hours prior also without specific findings Mild bladder wall thickening may be exaggerated by underdistention on CT - UA other unremarkable, denies UTI symptoms Triple swab negative BC x2, UC, MRSA pending Tick-borne panel and [place] added - added doxy for lyme coverage No pulmonary symptoms so have not added histo/hanta Will ask about travel Consider LP, additional diagnostics if new or worsening symptoms Status: Acute (3) Hyperlipidemia: Problem comment: Continue statin Status: Acute (4) Essential hypertension: Problem comment: Hold ramipril in setting of sepsis, soft pressures Status: Acute (5) Type 2 diabetes mellitus: Problem comment: With neuropathy, history of diabetic ulcers Most recent A1c 6.8 Hold metformin and semaglutide Insulin sliding scale (cautious use with decreased oral intake) Status: Acute (6) Pulmonary nodule: Problem comment: CT shows Stable pulmonary nodules when compared to previous CT of the chest from 06/01/2024 with largest measuring 12 mm within the right lower lobe Referred to [facility] 07/22, they recommend repeat [address] with them Status: Acute (7) Thrombocytopenia: Problem comment: Mild, in setting of acute illness likely, 115->134->121 Status: Acute (8) Hyponatremia: Problem comment: Mild, sodium 132, continue to monitor Status: Acute Plan Continue IV antibiotics, awaiting cultures, further labs. Total Time Spent Total Time Spent: Today I spent 65 minutes seeing the patient, reviewing Expanse and EPIC notes/diagnostics, discussing the care plan with our care time that includes social work, PT/OT, pharmacy, RT, fpc and documenting my impressions and plan in the medical record. Subjective Date Seen: 10/31/24 Interval history: Patient is seen lying reclined in bed this morning. In general, still not feeling well, exhausted. Complains of mild generalized headache, body aches. No neck pain. Denies dizziness. Denies nasal congestion, sinus pressure, sore throat. Denies recent cough or chest congestion. Denies abdominal pain. Complains of significant nausea this morning but has not vomited. No loose stools. Currently has a booth catheter in place. 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 No pulmonary symptoms currently. Will ask about travel. Repeat skin assessment WBC trending down Lactate normalized following fluid resuscitation Exam Narrative: Exam Narrative: PHYSICAL EXAM General: Quite tired, easily falls back asleep, otherwise NAD HEENT: Normocephalic, atraumatic, sclera white, EOMI Neck: No cervical spine tenderness on palpation, unable to elicit stiffness or pain with AROM Cardiovascular: RRR, S1S2. No pitting edema Pulmonary: CTA bilaterally without rhonchi, rales, expiratory wheezes. No dyspnea on room air Abdominal: Soft, nondistended, NTTP Neurological: Alert and oriented, answering questions appropriately though slowed, cranial nerves intact, no focal findings on exam Extremities: No gross joint deformity or swelling. AROMI. Neurovascularly intact Skin: Warm, dry. No obvious rash or lesions, wounds - repeat more extensive exam this afternoon Const: Vital Signs, click to edit/add: Vital Signs - 24 hr 10/10/24 22:27 10/10/24 22:36 10/10/24 22:38 Temperature 99.5 F 101.8 F H Pulse Rate 86 Pulse Rate [Pulse Oximeter] 89 Pulse Rate [Right Pulse Oximeter] Respiratory Rate 22 Blood Pressure Blood Pressure [Le ft Arm] Blood Pressure [Ri ght Upper Arm] 142/76 H Pulse Oximetry 96 94 Oxygen Delivery Me thod Room Air 10/10/24 22:41 10/10/24 22:45 10/10/24 23:00 Temperature Pulse Rate 87 82 Pulse Rate [Pulse Oximeter] Pulse Rate [Right Pulse Oximeter] Respiratory Rate 13 30 H Blood Pressure Blood Pressure [Le ft Arm] Blood Pressure [Ri ght Upper Arm] Pulse Oximetry 94 94 94 Oxygen Delivery Me thod 10/10/24 23:02 10/10/24 23:09 10/10/24 23:18 Temperature 100.3 F H Pulse Rate 81 Pulse Rate [Pulse Oximeter] Pulse Rate [Right Pulse Oximeter] Respiratory Rate 29 H 26 H Blood Pressure 129/78 Blood Pressure [Le ft Arm] Blood Pressure [Ri ght Upper Arm] Pulse Oximetry 94 Oxygen Delivery Me thod 10/10/24 23:30 10/10/24 23:51 10/11/24 00:01 Temperature Pulse Rate 75 72 Pulse Rate [Pulse Oximeter] Pulse Rate [Right Pulse Oximeter] Respiratory Rate 22 18 20 Blood Pressure 106/67 105/57 L Blood Pressure [Le ft Arm] Blood Pressure [Ri ght Upper Arm] Pulse Oximetry 94 96 [facility] 10/11/24 00:32 10/11/24 01:15 10/11/24 01:31 Temperature 98.5 F Pulse Rate 73 71 72 Pulse Rate [Pulse Oximeter] Pulse Rate [Right Pulse Oximeter] Respiratory Rate 20 20 16 Blood Pressure 108/58 L 119/69 111/69 Blood Pressure [Le ft Arm] Blood Pressure [Ri ght Upper Arm] Pulse Oximetry 92 95 93 [facility]xygen Delivery [facility] 10/11/24 02:02 10/11/24 02:15 10/11/24 02:15 Temperature 99.4 F Pulse Rate 75 Pulse Rate [Pulse Oximeter] Pulse Rate [Right Pulse Oximeter] Respiratory Rate 19 24 24 Blood Pressure 110/65 Blood Pressure [Le ft Arm] 120/77 Blood Pressure [Ri ght Upper Arm] Pulse Oximetry 94 97 97 Oxygen Delivery [facility] Room Air Room Air 10/11/24 02:15 10/11/24 05:50 10/11/24 07:00 Temperature 99.4 F 99.6 F Pulse Rate Pulse Rate [Pulse Oximeter] Pulse Rate [Right Pulse Oximeter] 77 Respiratory Rate 24 Blood Pressure Blood Pressure [Le ft Arm] 120/77 Blood Pressure [Ri ght Upper Arm] Pulse Oximetry 97 97 Oxygen Delivery [facility] Room Air 10/11/24 09:19 Temperature 99.0 F Pulse Rate Pulse Rate [Pulse Oximeter] Pulse Rate [Right Pulse Oximeter] 76 Respiratory Rate 20 Blood Pressure Blood Pressure [Le ft Arm] 126/71 Blood Pressure [Ri ght Upper Arm] Pulse Oximetry 97 Oxygen Delivery [facility] Room Air Labs Labs: Laboratory Results - last 24 hr 10/10/24 10/10/24 10/10/24 22:30 22:41 23:35 WBC 19.21 H RBC 4.58 Hgb 13.7 Hct 40.1 MCV 88 MCH 30 MCHC 34 RDW Coeff of Dre 12.6 Plt Count 134 L Neut % (Auto) 80.4 H Lymph % (Auto) 5.8 L [place] % (Auto) 12.4 H Eos % (Auto) 0.0 Baso % (Auto) 0.2 Neut # (Auto) 15.40 H Lymph # (Auto) 1.10 [place] # (Auto) 2.40 H Eos # (Auto) 0.00 Baso # (Auto) 0.00 Abs Immat Gran (auto) 0.20 Imm/Tot Granulo (auto) 1.2 VBG pH 7.449 H VBG pCO2 33 L VBG pO2 42.3 VBG HCO3 23 Sodium 132 L Potassium 3.9 Chloride 101 Carbon Dioxide 22 Anion Gap 9 BUN 25 Creatinine 1.1 Estimated Creat Clear 59.90 Estimated GFR 69 Glucose 190 H Lactate 2.7 H Calcium 8.6 Total Bilirubin 1.4 Direct Bilirubin 0.4 AST 50 H ALT 42 Alkaline Phosphatase 54 C-Reactive Protein 1.0 Total Protein 7.1 Albumin 4.0 Urine Color Yellow Urine Appearance Slightly Cloudy A Urine pH 5.5 Ur Specific [place] 1.025 Urine Protein 2+ A Urine Glucose (UA) Trace A Urine Ketones 1+ A Urine Blood 2+ A Urine Nitrite Negative Urine Bilirubin Negative Urine Urobilinogen 0.2 Ur Leukocyte Esterase Negative Urine RBC 2-5 A Urine WBC 0-2 Ur Squamous Epith Cells Few Urine Bacteria Few A SARS-CoV-2 (PCR) Negative SARS-CoV-2 Influenza Type A (PCR) Negative PCR FLU A Influenza Type B (PCR) Negative PCR FLU B RSV (PCR) Negative PCR RSV 10/11/24 10/11/24 01:20 06:04 WBC 16.67 H RBC 4.35 Hgb 13.0 L Hct 38.6 MCV 89 MCH 30 MCHC 34 RDW Coeff of Dre 12.7 Plt Count 121 L Neut % (Auto) 79.5 H Lymph % (Auto) 6.8 L [place] % (Auto) 12.6 H Eos % (Auto) 0.0 Baso % (Auto) 0.1 Neut # (Auto) 13.30 H Lymph # (Auto) 1.10 [place] # (Auto) 2.10 H Eos # (Auto) 0.00 Baso # (Auto) 0.00 Abs Immat Gran (auto) 0.20 Imm/Tot Granulo (auto) 1.0 VBG pH VBG pCO2 VBG pO2 VBG HCO3 Sodium Potassium Chloride Carbon Dioxide Anion Gap BUN Creatinine Estimated Creat Clear Estimated GFR Glucose Lactate 1.0 1.3 Calcium Total Bilirubin Direct Bilirubin AST ALT Alkaline Phosphatase C-Reactive Protein Total Protein Albumin Urine Color Urine Appearance Urine pH Ur Specific [place] Urine Protein Urine Glucose (UA) Urine Ketones Urine Blood Urine Nitrite Urine Bilirubin Urine Urobilinogen Ur Leukocyte Esterase Urine RBC Urine WBC Ur Squamous Epith Cells Urine Bacteria SARS-CoV-2 (PCR) Influenza Type A (PCR) Influenza Type B (PCR) RSV (PCR)
[2024-10-11] MEDS: ASPIRIN 81 MG TAB.CHEW PO (09:35)
[2024-10-11] MEDS: ONDANSETRON 2 MG/ML inj 4 MG IVP ×2 (09:35→21:59)
[2024-10-11] MEDS: SODIUM CHLORIDE 0.9 % (FLUSH) 10 ML SYRINGE 5 ML IVF ×2 (09:35→21:59)
[2024-10-11] MEDS: DOXYCYCLINE HYCLATE 100 MG in 0.9 % SODIUM CHLORIDE Mini-bag 100 ML IVPB ×2 (10:21→21:57)
[2024-10-11] MEDS: ACETAMINOPHEN 500 MG TABLET 1000 MG PO ×2 (11:33→17:44)
[2024-10-11] MEDS: ENOXAPARIN 40 MG/0.4 ML INJ SUBCUT (20:46)
--- NOTE | 2024-10-11 23:01 | PC.NURSE ---
End of Shift Note ?(260)? ? Patient was pleasant and cooperative throughout shift. He was admitted from ED after he suffered a fall at home and his ?was not able to understand what he was saying?. Patient has been complaining of ?feeling really, really bad? throughout the shift, but has not been able to tell specific symptoms other than nausea. Appetite has been very poor with patient not been able to tolerate much food at all. He has a booth in place. Hx of diabetes type 2 and take Metformin and Ozempic at home. Patient has not moved from bed, and has been sleepy throughout shift. brought hi Metformin from home, which is stored in the locked personal belonging drawer.?
[2024-10-11] MEDS: VANCOMYCIN 1.25 GM/250 ML 1.25 GM/250 ML PIGGYBACK IVPB (23:59)
[2024-10-12] VITALS (17 sets, daily range): BP systolic 110–140; BP diastolic 67–85; PULSE 58–78; RESP 16–26; TEMP 36.8–37.7; O2SAT 95–98
[2024-10-12] MEDS: METOCLOPRAMIDE HCL 5 MG/ML INJ 10 MG IVP (00:59)
[2024-10-12] MEDS: ACETAMINOPHEN INJ 1,000 MG/100 ML VIAL 400 MG IVPB (01:00)
[2024-10-12] MEDS: CEFEPIME HCL 2 GM in 0.9 % SODIUM CHLORIDE Mini-bag 100 ML IVPB (03:10)
[2024-10-12 06:29] LABS: Hematocrit 33.6 % (37.0-53.0); Hemoglobin* 11.4 gm/dL (13.5-17.5); Mean Corpuscular HGB Conc 34 gm/dL (32-36); Mean Corpuscular Hemoglobin 30 pg (26-34); Mean Corpuscular Volume 88 fL (80-100); Red Blood Count 3.80 m/uL (4.30-5.90); White Blood Count* 13.12 K/uL (4.50-11.00)
--- NOTE | 2024-10-12 06:33 | PC.NURSE ---
23-07: Upon assessment the patient is noted to only be alert to himself. VSS on RA, the patient reported nausea and feeling warm as well.. slight fever @ 99.5. Valentin MONTES was contacted and an additional antiemetic was ordered and IV Tylenol. I also notified the DR about the patients mental status change. Watkins is patent and draining. IV fluids and ABX infused throughout the night. Upon 300 vs the patient was hollering out help me and was quite restless, he stated that he could not breathe. O2 was stable and respirations were tachypneic, although even. With coaching thorough some deep breathes and standing at the bedside and repositioning the patient calmed down. No reports of pain this shift. In report the patients stated he had a fall yesterday, there are too abrasions on his head from the fall that are CDI and open to air. Call light within reach and bed alarm is on. Fabiana VILLALOBOS BSN
[2024-10-12 06:41] LABS: Slide Review Reflex No
[2024-10-12 06:50] LABS: Chloride* 105 mmol/L (96-114); Potassium* 3.5 mmol/L (3.6-5.1); Sodium* 133 mmol/L (135-149)
[2024-10-12 06:53] LABS: Blood Urea Nitrogen* 22 mg/dL (7-30); Creatinine* 0.9 mg/dL (0.5-1.5); Est. Creatinine Clearance* 65.89; Estimated Glomerular Filt Rate 88 ml/min
[2024-10-12 06:54] LABS: Anion Gap 5 mEq/L (7-15); Calcium* 7.8 mg/dL (8.4-10.6); Carbon Dioxide* 23 mmol/L (20-32); Glucose* 139 mg/dL (60-115)
[2024-10-12] MEDS: SODIUM CHLORIDE 0.9 % (FLUSH) 10 ML SYRINGE 5 ML IVF (08:11)
[2024-10-12] MEDS: ACETAMINOPHEN 500 MG TABLET 1000 MG PO ×2 (08:33→17:36)
[2024-10-12] MEDS: ASPIRIN 81 MG TAB.CHEW PO (08:49)
[2024-10-12] MEDS: DOXYCYCLINE HYCLATE 100 MG in 0.9 % SODIUM CHLORIDE Mini-bag 100 ML IVPB (10:06)
--- NOTE | 2024-10-12 10:49 | PM.IMPN1 ---
Assessment and Plan Assessment and plan (1) Fever, unknown origin: Problem comment: 101.8? on admission, continues low-grade > 99? intermittently CT chest abdomen pelvis shows no acute intrathoracic or intra-abdominal/pelvic pathology. Mild prostatomegaly - Zosyn for prostatitis coverage. No obstructing stones or hydronephrosis. CT abdomen pelvis 24 hours prior without specific findings Mild bladder wall thickening may be exaggerated by underdistention on CT - UA other unremarkable, denies UTI symptoms, no recent urinary retention Triple swab negative BC x2, UC, MRSA all NGTD 10/12 Tick-borne panel and west nile pending - added doxy for lyme coverage No pulmonary symptoms so have not added histo/hanta No recent travel or known exposures Headache has resolved, no neck pain/stiffness - have deferred LP for now given risks versus benefits but would consider if necessary (ID agrees) No skin findings - continue daily skin checks Discussed with ID, Dr. Bowie, 10/12 - believes this is ehrlichiosis (spends much of his time outdoors, symptomatic, leukocytosis, thrombocytopenia, mild AST bump). Recommends discontinuing all antibiotics other than continuing doxycycline for a 10 day course Status: Acute (2) Sepsis: Problem comment: RESOLVED On admission febrile, tachypneic, hypotensive, leukocytosis with left shift - trending down, lactate 2.7 - normalized to 1.3, VBG pH 7.449, pCO2 33 Unknown source on admission Received sepsis resuscitation fluids, NS 30 mL/kg for a total of 2259 mL on admission Received Zosyn and vancomycin in ED -> started on cefepime and continued on vancomycin on admission-> doxycycline added for Lyme coverage Continue oral doxycycline (changed from IV as tolerating oral today, 10/12) Continue NS at 125ml until appropriate oral intake, monitor for fluid overload Status: Resolved (3) Delirium: Problem comment: Acute hospital delirium, somnolence CT head 10/10 without acute intracranial findings DC Watkins catheter (was placed for sepsis management, strict I&Os, specimen collection) DC cefepime Sleep hygiene discussed with nursing staff Status: Acute (4) Thrombocytopenia: Problem comment: Mild, in setting of acute illness likely, 115->134->121->107 Receiving enoxaparin, IV abx - cefepime discontinued. 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 Have discontinued all IV antibiotics. Ordered oral doxycycline (should completed 10 day course of doxy) for suspected ehrlichiosis. Pending tick borne, west nile tests. Monitoring delirium. Total Time Spent Total Time Spent: Today I spent 75 minutes seeing the patient, reviewing Expanse and EPIC notes/diagnostics, discussing the care plan with our care time that includes social work, PT/OT, pharmacy, RT, long term and documenting my impressions and plan in the medical record. Subjective Date Seen: 10/12/24 Interval history: Patient is seen sitting up in bed, nurse and aide at bedside. Overnight reports that patient has delirium. Slept all day yesterday having been in and out of the ED twice in the past 48 hours, awake than during the evening night hours confused. This morning, patient is eating breakfast, slowly, alert to self and place. Does not know month but knows year. Has very lucid moments and reiterates no known exposures but spends quite a bit of time [place] the [place]. No recent travel. No notable rashes or wounds. Patient reports headache has resolved. Continues to deny neck pain or stiffness. Nausea has resolved. No vomiting. No diarrhea. Highest temperature in last 36 hours is 99.9?. Remains vitally stable Leukocytosis continues to trend down Thrombocytopenia 115->134->121->107 Mild AST elevation 50 BC x2 NGTD UC NGTD MRSA NGTD Lyme and tick-borne disease remain pending [place] remains pending CT head 10/10 without acute intracranial abnormalities. Headache resolved, neck pain/stiffness report or elicited with testing - have deferred LP for now CT chest abdomen pelvis no obstructing kidney stones or hydronephrosis, mild bladder wall thickening (UC negative), mild prostatomegaly (switching cefepime to Zosyn for coverage of possible prostatitis), cholelithiasis without acute cholecystitis, otherwise no acute intrathoracic or intra-abdominal/pelvic pathology Skin exam without rash or wounds (history of diabetic ulcers) Exam Narrative: Exam Narrative: PHYSICAL EXAM General: Still sleepy but less so this morning, confusion HEENT: Normocephalic, atraumatic, sclera white, EOMI Neck: No cervical spine tenderness on palpation, unable to elicit stiffness or pain with AROM Cardiovascular: RRR, S1S2. No pitting edema Pulmonary: CTA bilaterally without rhonchi, rales, expiratory wheezes. No dyspnea on room air Abdominal: Soft, nondistended, NTTP Neurological: Alert and oriented to self and place, moments of lucidity, cranial nerves intact, no focal findings on repeat exam Extremities: No gross joint deformity or swelling. AROMI. Neurovascularly intact Skin: Warm, dry. No obvious rash or lesions, wounds - will do repeat extensive skin exam following breakfast Const: Vital Signs, click to edit/add: Vital Signs - 24 hr 10/11/24 11:00 10/11/24 11:33 10/11/24 15:00 Temperature 99.7 F H 99.7 F H Pulse Rate [Right Pulse Oximeter] 75 Respiratory Rate 20 Blood Pressure [Le ft Arm] 139/82 Pulse Oximetry 98 96 [facility] 10/11/24 15:00 10/11/24 15:00 10/11/24 17:44 Temperature 99.0 F 98.7 F Pulse Rate [Right Pulse Oximeter] 74 74 Respiratory Rate 20 Blood Pressure [Le ft Arm] 124/71 Pulse Oximetry 96 [facility] 10/11/24 19:00 10/11/24 20:28 10/11/24 23:00 Temperature 99 F 99 F 99.5 F Pulse Rate [Right Pulse Oximeter] 74 74 Respiratory Rate 22 20 Blood Pressure [Le ft Arm] 130/74 132/75 Pulse Oximetry 96 98 [facility]xygen [facility] Room Air 10/11/24 23:00 10/12/24 01:00 10/12/24 03:00 Temperature 99.5 F 98.5 F Pulse Rate [Right Pulse Oximeter] 75 Respiratory Rate 16 Blood Pressure [Le ft Arm] 124/73 Pulse Oximetry 98 96 Oxygen Delivery Ca thod Room Air 10/12/24 03:40 10/12/24 04:00 10/12/24 07:00 Temperature Pulse Rate [Right Pulse Oximeter] 78 Respiratory Rate 26 H 18 Blood Pressure [Le ft Arm] Pulse Oximetry 98 97 Oxygen [facility] Air 10/12/24 08:06 10/12/24 08:48 10/12/24 10:06 Temperature 99.9 F H 98.3 F Pulse Rate [Right Pulse Oximeter] 77 Respiratory Rate 18 Blood Pressure [Le ft Arm] 129/84 Pulse Oximetry 96 Oxygen Delivery [facility] Labs Labs: Laboratory Results - last 24 hr 10/12/24 06:02 WBC 13.12 H RBC 3.80 L Hgb 11.4 L Hct 33.6 L MCV 88 MCH 30 MCHC 34 Plt Count 107 L Sodium 133 L Potassium 3.5 L Chloride 105 Carbon Dioxide 23 Anion Gap 5 L BUN 22 Creatinine 0.9 Estimated Creat Clear 65.89 Estimated GFR 88 Glucose 139 H Calcium 7.8 L
[2024-10-12] MEDS: PIPERACILLIN/TAZOBACTAM 3.375 GM in 0.9 % SODIUM CHLORIDE Mini-bag 100 ML IVPB (11:15)
[2024-10-12] MEDS: INSULIN ASPART 100 UNIT/ML SUBCUT ×2 (12:28→17:03)
--- NOTE | 2024-10-12 15:33 | PC.SOCIAL ---
Discharge planning: pack worker supervisor completed what could be done with the Initial Psychosocial Assessment, pt is still not feeling very well... Initial Psychosocial Assessment: 1.? Assessment completed with: Patient, Spouse, Child, Friend, Other: Patient 2.? Pt lives at address and phone number on face sheet? Own home; facility , Other: Own home. 3.?Insurance information? on face sheet is correct? Yes. 4.?Contacts? on face sheet are correct? Yes. 5.? Does pt have a Healthcare Directive, POLST or Guardian? Healthcare Directive. 6.? Who is the pt?s main source/sources of emotional/physical support? Loren. 7.? Prior to admission did pt need assistance? Yes/No No, very active outdoors. 8.? Who provided and what was the assistance needed? N/A. 9.? Was Home Health being provided, by what agency? No. 10. Does pt use/have medical equipment at home already? What? N/A. 11. Will there be a need for additional assistance at discharge and is this available in previous setting? Not sure yet. 12. If pt needs to go to a higher level of care, are they open to this and do they have facilities they are interested in? Doesn't know. 13. How would pt plan to transport at discharge? Loren. 14. Is there anyone pt would like social service manager to contact to discuss discharge plans? Loren. Social work to follow-up as needed.
--- NOTE | 2024-10-12 18:15 | PC.NURSE ---
Pt is pleasant to care for. VSS. Pt has had lowgrade fever intermittently today, tylenol is effective. Pt reports body aches, chills noted. Pt is confused, oriented to self and place only, he is not using call light appropriately. He has been continent with adequate urine output. Pt is drowsy, arousable to name and able to follow directions well. Pt requires assist of two with a walker as he is weak and unsteady on his feet. Pt was up in chair for all meals, appetite is fair. Blood sugars stables. Pt's , Loren, was updated of pt's status at approximately 1200.
[2024-10-12] MEDS: DOXYCYCLINE HYCLATE 100 MG PO (21:01)
[2024-10-12] MEDS: ENOXAPARIN 40 MG/0.4 ML INJ SUBCUT (21:01)
[2024-10-12] MEDS: SIMVASTATIN 40 MG TABLET PO (21:02)
[2024-10-13] VITALS (11 sets, daily range): BP systolic 128–141; BP diastolic 73–87; PULSE 67–84; RESP 16–18; TEMP 37–37.8; O2SAT 97–99
[2024-10-13] MEDS: ACETAMINOPHEN 500 MG TABLET 1000 MG PO ×2 (01:14→19:12)
[2024-10-13 06:47] LABS: Hematocrit 33.2 % (37.0-53.0); Hemoglobin* 11.5 gm/dL (13.5-17.5); Mean Corpuscular HGB Conc 35 gm/dL (32-36); Mean Corpuscular Hemoglobin 30 pg (26-34); Mean Corpuscular Volume 87 fL (80-100); Red Blood Count 3.80 m/uL (4.30-5.90); White Blood Count* 10.42 K/uL (4.50-11.00)
[2024-10-13 06:50] LABS: Chloride* 107 mmol/L (96-114)
[2024-10-13 06:51] LABS: Potassium* 3.2 mmol/L (3.6-5.1); Sodium* 134 mmol/L (135-149)
[2024-10-13 06:53] LABS: Blood Urea Nitrogen* 14 mg/dL (7-30); Creatinine* 0.8 mg/dL (0.5-1.5); Est. Creatinine Clearance* 65.89; Estimated Glomerular Filt Rate 91 ml/min
[2024-10-13 06:54] LABS: Anion Gap 5 mEq/L (7-15); Calcium* 8.0 mg/dL (8.4-10.6); Carbon Dioxide* 22 mmol/L (20-32); Glucose* 119 mg/dL (60-115)
[2024-10-13 07:30] LABS: Slide Review Reflex No
--- NOTE | 2024-10-13 07:50 | PC.NURSE ---
Shift note ([id number]): Patient pleasant, alert and cooperative with cares. Stood at bedside with walker, gait belt and assist of 1-2 to use urinal. Pt pulled out IV to left forearm at HS. New IV placed in left wrist. In bed all shift. Set off bed alarm multiple times?during night to use urinal. No noted confusion. Took pills whole in applesauce. Given PRN Tylenol during night for c/o headache. Pt reports effect and has denied headache or discomfort since that time.
[2024-10-13] MEDS: DOXYCYCLINE HYCLATE 100 MG PO ×2 (08:23→20:34)
[2024-10-13] MEDS: ASPIRIN 81 MG TAB.CHEW PO (08:23)
[2024-10-13] MEDS: SODIUM CHLORIDE 0.9 % (FLUSH) 10 ML SYRINGE 5 ML IVF ×2 (08:24→20:35)
--- NOTE | 2024-10-13 10:27 | P.IMPN_ITS ---
Assessment and Plan Assessment and plan (1) Fever, unknown origin: Problem comment: -10/13; resolved. tmax: 101.8? on admission - still weak. no further delirium. still waiting on tickborne panel. -CT chest abdomen pelvis shows no acute intrathoracic or intra-abdominal/pelvic pathology. Mild prostatomegaly - Zosyn for prostatitis coverage. No obstructing stones or hydronephrosis. CT abdomen pelvis 24 hours prior without specific findings Mild bladder wall thickening may be exaggerated by underdistention on CT - UA other unremarkable, denies UTI symptoms, no recent urinary retention Triple swab negative BC x2, UC, MRSA all NGTD 10/12 Tick-borne panel and [place] pending - added doxy for lyme coverage No pulmonary symptoms so have not added histo/hanta No recent travel or known exposures Headache has resolved, no neck pain/stiffness - have deferred LP for now given risks versus benefits but would consider if necessary (ID agrees) No skin findings - continue daily skin checks Discussed with ID, Dr. Bowie, 10/12 - believes this is ehrlichiosis (spends much of his time outdoors, symptomatic, leukocytosis, thrombocytopenia, mild AST bump). Recommends discontinuing all antibiotics other than continuing doxycycline for a 10 day course Status: Acute (2) Sepsis: Problem comment: RESOLVED On admission febrile, tachypneic, hypotensive, leukocytosis with left shift - trending down, lactate 2.7 - normalized to 1.3, VBG pH 7.449, pCO2 33 Unknown source on admission Received sepsis resuscitation fluids, NS 30 mL/kg for a total of 2259 mL on admission Received Zosyn and vancomycin in ED -> started on cefepime and continued on vancomycin on admission-> doxycycline added for Lyme coverage Continue oral doxycycline (changed from IV as tolerating oral today, 10/12) Continue NS at 125ml until appropriate oral intake, monitor for fluid overload Status: Resolved (3) Delirium: Problem comment: Acute hospital delirium, somnolence. all improving CT head 10/10 without acute intracranial findings DC Watkins catheter (was placed for sepsis management, strict I&Os, specimen collection) DC cefepime Sleep hygiene discussed with nursing staff Status: Acute (4) Thrombocytopenia: Problem comment: Mild, in setting of acute illness likely, 115->134->121->107->130 Receiving enoxaparin, IV abx - cefepime discontinued. 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, history of diabetic ulcers Most recent A1c 6.8 Hold metformin and semaglutide Insulin sliding scale (cautious use with decreased oral intake) Status: Acute (9) Pulmonary nodule: Problem comment: CT shows Stable pulmonary nodules when compared to previous CT of the chest from 06/01/2024 with largest measuring 12 mm within the right lower lobe Referred to [facility] 07/22, they recommend repeat [address] with them Status: Acute Subjective Date Seen: 10/13/24 Interval history: Daily Progress Note - Hospital Medicine Day #: 3 CC: Febrile illness, delirium 24 HOUR UPDATE: Improving slowly. Remains quite weak which is way off his baseline, significant fatigue. He has defervesced. His last elevated temperature was 10/12 at 8:48 a.m.. Notable Labs, Micro, Rads, Interventions: Last elevated temperature was 10/12 at 8:48 a.m., 99.9? F -urine culture no growth 24 hours, blood cultures no growth 48 hours, MRSA negative CBC is down trending. White count has gone from 19.2 down to 10.4 Electrolytes reflect a mild hypokalemia, normal renal function. CRP was checked on admission 10/10, 1.0 but now 816 it is 2.3 however it may have already peaked. All tick-borne studies are pending at this time. Objective: He looks tired and like he does not feel well. 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 He can talk about casual topics. 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 Vitals: see above HEENT: Patient points to a scab behind his right ear. He noted it was a little tender maybe about a week ago. No tick was noted. I see a small lesion that is very minimally elevated. No target or bull's eye appearance. No obvious lymphadenopathy. No obvious evidence of a tick. Lungs: Clear. Cardiac: S1S2. Disposition/Potential discharge - Home with when appropriate, 1-2 days Today I spent 50minutes seeing the patient, reviewing Expanse and EPIC notes/diagnostics, discussing the care plan with our care time that includes social work, PT/OT, pharmacy, RT, halfway and documenting my impressions and plan in the medical record. Exam Const: Vital Signs, click to edit/add: Vital Signs - 24 hr 10/12/24 11:11 10/12/24 11:57 10/12/24 14:52 Temperature 98.3 F 98.2 F Pulse Rate [Right Pulse Oximeter] 63 70 Respiratory Rate 18 16 Blood Pressure [Le ft Arm] 110/67 137/78 Pulse Oximetry 95 97 Oxygen Delivery Me thod Room Air Room Air 10/12/24 14:53 10/12/24 17:34 10/12/24 17:36 Temperature 99.1 F 99.1 F Pulse Rate [Right Pulse Oximeter] 72 Respiratory Rate 18 Blood Pressure [Le ft Arm] 117/75 Pulse Oximetry 97 96 Oxygen Delivery Ca thod Room Air 10/12/24 18:30 10/12/24 20:32 10/12/24 23:45 Temperature 98.4 F 98.9 F Pulse Rate [Right Pulse Oximeter] 58 L Respiratory Rate 18 Blood Pressure [Le ft Arm] 129/82 Pulse Oximetry 96 98 Oxygen Delivery Ca thod Room Air 10/12/24 23:45 10/13/24 03:20 10/13/24 07:00 Temperature 98.7 F 98.7 F Pulse Rate [Right Pulse Oximeter] 64 67 Respiratory Rate 20 16 Blood Pressure [Le ft Arm] 140/85 H 138/73 Pulse Oximetry 98 99 97 Oxygen Delivery Ca thod Room Air Room Air 10/13/24 08:18 Temperature 98.7 F Pulse Rate [Right Pulse Oximeter] 80 Respiratory Rate 16 Blood Pressure [Le ft Arm] 128/87 Pulse Oximetry 97 Oxygen Delivery Ca thod Room Air Labs Labs: Laboratory Results - last 24 hr 10/12/24 10/13/24 10:45 05:39 WBC 10.42 RBC 3.80 L Hgb 11.5 L Hct 33.2 L MCV 87 MCH 30 MCHC 35 Plt Count 130 L Sodium 134 L Potassium 3.2 L Chloride 107 Carbon Dioxide 22 Anion Gap 5 L BUN 14 Creatinine 0.8 Estimated Creat Clear 65.89 Estimated GFR 91 Glucose 119 H Calcium 8.0 L Lab Acknowledgement Test Added
[2024-10-13 10:48] LABS: Albumin* 2.9 g/dL (3.3-5.0)
[2024-10-13 10:51] LABS: Alanine Aminotransferase* 25 U/L (4-50); Alkaline Phosphatase* 54 U/L (40-150); Aspartate Amino Transferase* 34 U/L (12-35); Bilirubin Direct* 0.4 mg/dL (0.0-0.5); Bilirubin Total* 1.1 mg/dL (0.1-1.5); Total Protein* 5.5 g/dL (6.0-8.3)
[2024-10-13] MEDS: INSULIN ASPART 100 UNIT/ML SUBCUT ×3 (12:51→20:37)
[2024-10-13] MEDS: POTASSIUM BICARB 25 MEQ EFFERVESCENT TAB PO ×2 (13:56→16:02)
--- NOTE | 2024-10-13 15:04 | PC.NURSE ---
Pt is doing well today. VSS. Afebrile. Denies pain. Pt is A&Ox4, continues to be forgetful and not using call light appropriately. Pt is ambulating with walker and assist of one, intermittently unsteady. Appetite is poor, offering nutritional supplements. Pt and daughter visited today. Pt is comfortably resting at this time.
[2024-10-13] MEDS: SIMVASTATIN 40 MG TABLET PO (20:34)
[2024-10-13] MEDS: ENOXAPARIN 40 MG/0.4 ML INJ SUBCUT (20:34)
[2024-10-14] VITALS (9 sets, daily range): BP systolic 130–151; BP diastolic 83–101; PULSE 62–73; RESP 16–18; TEMP 36.6–37.2; O2SAT 95–98
--- NOTE | 2024-10-14 04:16 | PC.NURSE ---
Pt rested well this night. VS unremarkable. Up A1 and using Urinal at bedside. Pleasant and cooperative. No signs of delirium. Answering questions appropriately. Reporting zero pain.
[2024-10-14 06:17] LABS: Hematocrit 36.0 % (37.0-53.0); Hemoglobin* 12.6 gm/dL (13.5-17.5); Mean Corpuscular HGB Conc 35 gm/dL (32-36); Mean Corpuscular Hemoglobin 30 pg (26-34); Mean Corpuscular Volume 86 fL (80-100); Red Blood Count 4.17 m/uL (4.30-5.90); White Blood Count* 10.66 K/uL (4.50-11.00)
[2024-10-14 06:23] LABS: Slide Review Reflex No
[2024-10-14 06:30] LABS: Chloride* 105 mmol/L (96-114); Potassium* 3.4 mmol/L (3.6-5.1); Sodium* 135 mmol/L (135-149)
[2024-10-14 06:33] LABS: Blood Urea Nitrogen* 14 mg/dL (7-30); Creatinine* 0.7 mg/dL (0.5-1.5); Est. Creatinine Clearance* 65.29; Estimated Glomerular Filt Rate 95 ml/min
[2024-10-14 06:34] LABS: Anion Gap 6 mEq/L (7-15); Calcium* 8.4 mg/dL (8.4-10.6); Carbon Dioxide* 24 mmol/L (20-32); Glucose* 137 mg/dL (60-115)
[2024-10-14 07:23] LABS: Anaplasma phagocyt PCR Not Detected
[2024-10-14] MEDS: ASPIRIN 81 MG TAB.CHEW PO (08:54)
[2024-10-14] MEDS: DOXYCYCLINE HYCLATE 100 MG PO ×2 (08:54→20:28)
[2024-10-14] MEDS: SODIUM CHLORIDE 0.9 % (FLUSH) 10 ML SYRINGE 5 ML IVF ×2 (08:54→20:30)
--- NOTE | 2024-10-14 09:52 | PM.IMPN1 ---
Assessment and Plan Assessment and plan (1) Fever, unknown origin: Problem comment: -10/13; resolved. tmax: 101.8? on admission - still weak. no further delirium. still waiting on some of the tickborne panel. -CT chest abdomen pelvis shows no acute intrathoracic or intra-abdominal/pelvic pathology. Mild prostatomegaly - Zosyn for prostatitis coverage. No obstructing stones or hydronephrosis. CT abdomen pelvis 24 hours prior without specific findings Mild bladder wall thickening may be exaggerated by underdistention on CT - UA other unremarkable, denies UTI symptoms, no recent urinary retention Triple swab negative BC x2, UC, MRSA all NGTD 10/12 Tick-borne panel and west nile pending - added doxy for lyme coverage No pulmonary symptoms so have not added histo/hanta No recent travel or known exposures Headache has resolved, no neck pain/stiffness - have deferred LP for now given risks versus benefits but would consider if necessary (ID agrees) No skin findings - continue daily skin checks Discussed with ID, Dr. Bowie, 10/12 - believes this is ehrlichiosis (spends much of his time outdoors, symptomatic, leukocytosis, thrombocytopenia, mild AST bump). Recommends discontinuing all antibiotics other than continuing doxycycline for a 10 day course Status: Acute (2) Sepsis: Problem comment: RESOLVED On admission febrile, tachypneic, hypotensive, leukocytosis with left shift - trending down, lactate 2.7 - normalized to 1.3, VBG pH 7.449, pCO2 33 Unknown source on admission Received sepsis resuscitation fluids, NS 30 mL/kg for a total of 2259 mL on admission Received Zosyn and vancomycin in ED -> started on cefepime and continued on vancomycin on admission-> doxycycline added for Lyme coverage Continue oral doxycycline (changed from IV as tolerating oral today, 10/12) Continue NS at 125ml until appropriate oral intake, monitor for fluid overload Status: Resolved (3) Delirium: Problem comment: Acute hospital delirium, somnolence. all improving CT head 10/10 without acute intracranial findings DC Watkins catheter (was placed for sepsis management, strict I&Os, specimen collection) DC cefepime Sleep hygiene discussed with nursing staff Status: Acute (4) Thrombocytopenia: Problem comment: Mild, in setting of acute illness likely, 115->134->121->107->130 Receiving enoxaparin, IV abx - cefepime discontinued. 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, history of diabetic ulcers Most recent A1c 6.8 Hold metformin and semaglutide Insulin sliding scale (cautious use with decreased oral intake) Status: Acute (9) Pulmonary nodule: Problem comment: CT shows Stable pulmonary nodules when compared to previous CT of the chest from 06/01/2024 with largest measuring 12 mm within the right lower lobe Referred to [place] [facility] 07/22, they recommend repeat [address] with them Status: Acute Subjective Date Seen: 10/14/24 Interval history: Daily Progress Note - Hospital Medicine Day #: 4 CC: Febrile illness, delirium 24 HOUR UPDATE: Improving slowly. Remains quite weak which is way off his baseline, significant fatigue. He has mostly defervesced. His last elevated temperature was 8/16 and 7 pm; 100.0F Notable Labs, Micro, Rads, Interventions: -UC and BC NGTD. -MRSA negative CBC is down trending. White count has gone from 19.2 down to 10 Electrolytes reflect a mild hypokalemia, normal renal function. CRP was checked on admission 10/10, 1.0 but now 816 it is 2.3-2.6 Babesia (babeosis) neg ehrlichia neg anaplasma neg Lyme Pending West Nile Pending Objective: He looks tired and like he does not feel well. 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 He can talk about casual topics. 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 Vitals: see above HEENT: Patient points to a scab behind his right ear. He noted it was a little tender maybe about a week ago. No tick was noted. I see a small lesion that is very minimally elevated. No target or bull's eye appearance. No obvious lymphadenopathy. No obvious evidence of a tick. Lungs: Clear. Cardiac: S1S2. Disposition/Potential discharge - Home with when appropriate, 1-2 days - may need rehab Today I spent 50minutes seeing the patient, reviewing Expanse and EPIC notes/diagnostics, discussing the care plan with our care time that includes social work, PT/OT, pharmacy, RT, care home and documenting my impressions and plan in the medical record. Exam Const: Vital Signs, click to edit/add: Vital Signs - 24 hr 10/13/24 11:38 10/13/24 11:57 10/13/24 15:00 Temperature 98.6 F 99.2 F Pulse Rate [Right Pulse Oximeter] 84 73 Respiratory Rate 16 16 Blood Pressure [Le ft Arm] 134/78 141/86 H Pulse Oximetry 98 97 Oxygen Delivery Me thod Room Air 10/13/24 15:00 10/13/24 15:00 10/13/24 19:00 Temperature 100.0 F H Pulse Rate [Right Pulse Oximeter] 73 73 Respiratory Rate 16 18 Blood Pressure [Le ft Arm] 135/83 Pulse Oximetry 97 97 Oxygen Delivery Ri thod Room Air 10/13/24 19:12 10/13/24 21:56 10/13/24 21:57 Temperature 100.0 F H 98.9 F Pulse Rate [Right Pulse Oximeter] 68 Respiratory Rate 18 Blood Pressure [Le ft Arm] 136/80 Pulse Oximetry 98 98 Oxygen Delivery Ri thod Room Air 10/13/24 21:59 10/14/24 02:35 10/14/24 07:00 Temperature 98.1 F Pulse Rate [Right Pulse Oximeter] 68 73 Respiratory Rate 18 16 Blood Pressure [Le ft Arm] 130/83 Pulse Oximetry 98 97 Oxygen Delivery Ri thod Room Air 10/14/24 08:13 Temperature 98.0 F Pulse Rate [Right Pulse Oximeter] 64 Respiratory Rate 16 Blood Pressure [Le ft Arm] 143/86 H Pulse Oximetry 97 Oxygen Delivery Ri thod Room Air Labs Labs: Laboratory Results - last 24 hr 10/11/24 10/13/24 10/13/24 09:42 05:39 10:26 WBC RBC Hgb Hct MCV MCH MCHC Plt Count Sodium Potassium Chloride Carbon Dioxide Anion Gap BUN Creatinine Estimated Creat Clear Estimated GFR Glucose Calcium Total Bilirubin 1.1 Direct Bilirubin 0.4 AST 34 ALT 25 Alkaline Phosphatase 54 C-Reactive Protein 2.3 H Total Protein 5.5 L Albumin 2.9 L A. phagocytophilum DNA Not Detected Babesia Species (PCR) Not Detected E.ewingii/canis DNA PCR Not Detected E. muris-like DNA (PCR) Not Detected Babesia microti (PCR) Not Detected E. chaffeensis (PCR) Not Detected Lab Acknowledgement Test Added 10/14/24 05:28 WBC 10.66 RBC 4.17 L Hgb 12.6 L Hct 36.0 L MCV 86 MCH 30 MCHC 35 Plt Count 159 Sodium 135 Potassium 3.4 L Chloride 105 Carbon Dioxide 24 Anion Gap 6 L BUN 14 Creatinine 0.7 Estimated Creat Clear 65.29 Estimated GFR 95 Glucose 137 H Calcium 8.4 Total Bilirubin Direct Bilirubin AST ALT Alkaline Phosphatase C-Reactive Protein 2.6 H Total Protein Albumin A. phagocytophilum DNA Babesia Species (PCR) E.ewingii/canis DNA PCR E. muris-like DNA (PCR) Babesia microti (PCR) E. chaffeensis (PCR) Lab Acknowledgement
[2024-10-14 13:26] LABS: Lyme ELISA Reflex 0.08 IV (<=0.90)
--- NOTE | 2024-10-14 14:27 | PC.NURSE ---
Pt is very fatigued today. A&O x4, slow to respond/answer questions, using call light appropriately. Pt continues to have a decrease in appetite. Pt denies pain, nausea, and lightheadedness, however states I just feel sick. Pt also states that he is feeling depressed because he has to be in the hospital. Pt is ambulating with a walker and assist of one, continues to have intermittent unsteadiness.
--- NOTE | 2024-10-14 18:26 | PC.NURSE ---
End of shift report [id number]: Alert and oriented x 4 with intermittent forgetfulness, needs reminders to utilize call light. Denies any pain this shift. Patient continues to have weakness with transfers and ambulation, Ax1 with transfers. Afebrile throughout the shift.
[2024-10-14] MEDS: ENOXAPARIN 40 MG/0.4 ML INJ SUBCUT (20:27)
[2024-10-14] MEDS: SIMVASTATIN 40 MG TABLET PO (20:29)
[2024-10-15 02:32] VITALS: BP 142/93; PULSE 64; RESP 16; TEMP 36.8; O2SAT 98
--- NOTE | 2024-10-15 04:14 | PC.NURSE ---
Pt rested well this night. Up A1 with walker and voiding. Had BM yesterday. VS unremarkable. Reporting zero pain. No signs of delirium answering questions appropriately.
[2024-10-15 06:26] LABS: HCO3 VBG 26 mmol/L (21-28); Hematocrit 37.9 % (37.0-53.0); Hemoglobin* 13.0 gm/dL (13.5-17.5); Mean Corpuscular HGB Conc 34 gm/dL (32-36); Mean Corpuscular Hemoglobin 30 pg (26-34); Mean Corpuscular Volume 88 fL (80-100); PCO2 VBG 35 mmHG (40-50); PO2 VBG 36.3 mmHG (25-47); Red Blood Count 4.32 m/uL (4.30-5.90); White Blood Count* 8.79 K/uL (4.50-11.00); pH VBG 7.476 (7.32-7.43)
[2024-10-15 06:35] LABS: Slide Review Reflex No
[2024-10-15 06:48] LABS: Chloride* 105 mmol/L (96-114); Potassium* 3.6 mmol/L (3.6-5.1); Sodium* 136 mmol/L (135-149)
[2024-10-15 06:51] LABS: Anion Gap 6 mEq/L (7-15); Blood Urea Nitrogen* 18 mg/dL (7-30); Calcium* 8.8 mg/dL (8.4-10.6); Carbon Dioxide* 25 mmol/L (20-32); Creatinine* 0.7 mg/dL (0.5-1.5); Est. Creatinine Clearance* 60.73; Estimated Glomerular Filt Rate 95 ml/min; Glucose* 136 mg/dL (60-115)
[2024-10-15 07:00] VITALS: BP 115/83; PULSE 90; RESP 18; TEMP 36.4; O2SAT 98
[2024-10-15 07:09] LABS: Procalcitonin* 0.07 ng/mL (<0.50)
[2024-10-15] MEDS: ASPIRIN 81 MG TAB.CHEW PO (08:25)
[2024-10-15] MEDS: SODIUM CHLORIDE 0.9 % (FLUSH) 10 ML SYRINGE 5 ML IVF ×2 (08:26→21:05)
[2024-10-15] MEDS: DOXYCYCLINE HYCLATE 100 MG PO ×2 (08:26→21:03)
[2024-10-15 11:00] VITALS: BP 131/86; PULSE 74; RESP 20; TEMP 36.7; O2SAT 99
[2024-10-15 11:39] VITALS: BMI 21.3
--- NOTE | 2024-10-15 14:14 | PC.NURSE ---
End of Shift Note: Patient has done well been up to chair for meals and has ambulated x 1 with PT. Have asked the nursing assistants to ambulate him x2 more times today. He was taking a nap when I went in this afternoon to get him up to ambulate. he has not had any hallucinations today. Has been alert and orientated and has answered all questions appropriately. Denies pain. Will continue to monitor until the next shift arrives.
--- NOTE | 2024-10-15 14:40 | PM.IMPN1 ---
Assessment and Plan Assessment and plan (1) Fever, unknown origin: Problem comment: -10/13; resolved. tmax: 101.8? on admission - still weak. no further delirium. still waiting on some of the tickborne panel. -CT chest abdomen pelvis shows no acute intrathoracic or intra-abdominal/pelvic pathology. Mild prostatomegaly - Zosyn for prostatitis coverage. No obstructing stones or hydronephrosis. CT abdomen pelvis 24 hours prior without specific findings Mild bladder wall thickening may be exaggerated by underdistention on CT - UA other unremarkable, denies UTI symptoms, no recent urinary retention Triple swab negative BC x2, UC, MRSA all NGTD 10/12 Tick-borne panel and west nile pending - added doxy for lyme coverage No pulmonary symptoms so have not added histo/hanta No recent travel or known exposures Headache has resolved, no neck pain/stiffness - have deferred LP for now given risks versus benefits but would consider if necessary (ID agrees) No skin findings - continue daily skin checks Discussed with ID, Dr. Bowie, 10/12 - believes this is ehrlichiosis (spends much of his time outdoors, symptomatic, leukocytosis, thrombocytopenia, mild AST bump). Recommends discontinuing all antibiotics other than continuing doxycycline for a 10 day course Status: Acute (2) Sepsis: Problem comment: RESOLVED On admission febrile, tachypneic, hypotensive, leukocytosis with left shift - trending down, lactate 2.7 - normalized to 1.3, VBG pH 7.449, pCO2 33 Unknown source on admission Received sepsis resuscitation fluids, NS 30 mL/kg for a total of 2259 mL on admission Received Zosyn and vancomycin in ED -> started on cefepime and continued on vancomycin on admission-> doxycycline added for Lyme coverage Continue oral doxycycline (changed from IV as tolerating oral today, 10/12) Continue NS at 125ml until appropriate oral intake, monitor for fluid overload Status: Resolved (3) Weakness: Problem comment: -brain MRI ordered 10/15 -encephalopathy from post infectious processs? Status: Acute (4) Delirium: Problem comment: Acute hospital delirium, somnolence. all resolved CT head 10/10 without acute intracranial findings DC Watkins catheter (was placed for sepsis management, strict I&Os, specimen collection) DC cefepime Sleep hygiene discussed with nursing staff Status: Acute (5) Thrombocytopenia: Problem comment: Mild, in setting of acute illness likely, 115->134->121->107->130 -->199 Receiving enoxaparin, IV abx - cefepime discontinued. ID suspects ehrlichiosis (ultimately negative) Continue to monitor Status: Acute (6) Hyponatremia: Problem comment: resolved Status: Acute (7) Hyperlipidemia: Problem comment: Continue statin Status: Acute (8) Essential hypertension: Problem comment: Ramipril held on admission (sepsis, hypotension) - resume when appropriate Status: Acute (9) Type 2 diabetes mellitus: Problem comment: With neuropathy, history of diabetic ulcers Most recent A1c 6.8 Hold metformin and semaglutide Insulin sliding scale (cautious use with decreased oral intake) Status: Acute (10) Pulmonary nodule: Problem comment: CT shows Stable pulmonary nodules when compared to previous CT of the chest from 06/01/2024 with largest measuring 12 mm within the right lower lobe Referred to [place] [facility] 07/22, they recommend repeat [address] with them Status: Acute Subjective Date Seen: 10/15/24 Interval history: Daily Progress Note - Hospital Medicine Day #: 5 CC: Febrile illness, delirium 24 HOUR UPDATE: Improving slowly. Remains quite weak which is way off his baseline, significant fatigue. He has defervesced. Notable Labs, Micro, Rads, Interventions: -UC and BC NGTD. -MRSA negative CBC is down trending. White count has gone from 19.2 down to 8.7 Electrolytes are unremarkable, normal renal function. CRP was checked on admission 10/10, 1.0 but now 816 it is 2.3-2.6 Babesia (babeosis) neg ehrlichia neg anaplasma neg Lyme Pending West Nile Pending Objective: He looks tired and talks slowly. 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 He can talk about casual topics. 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 Vitals: see above HEENT: Patient points to a scab behind his right ear. He noted it was a little tender maybe about a week ago. No tick was noted. I see a small lesion that is very minimally elevated. No target or bull's eye appearance. No obvious lymphadenopathy. No obvious evidence of a tick. Lungs: Clear. Cardiac: S1S2. Disposition/Potential discharge - Home with when appropriate, 1-2 days - may need rehab Today I spent 50minutes seeing the patient, reviewing Expanse and EPIC notes/diagnostics, discussing the care plan with our care time that includes social work, PT/OT, pharmacy, RT, nursing home and documenting my impressions and plan in the medical record. Exam Const: Vital Signs, click to edit/add: Vital Signs - 24 hr 10/14/24 15:00 10/14/24 15:00 10/14/24 15:00 Temperature 97.9 F Pulse Rate [Right Pulse Oximeter] 67 67 Respiratory Rate 18 16 Blood Pressure [Le ft Arm] 148/101 H Pulse Oximetry 95 95 Oxygen Delivery Me thod Room Air 10/14/24 19:10 10/14/24 22:10 10/14/24 22:11 Temperature 98.2 F 98.2 F Pulse Rate [Right Pulse Oximeter] 63 62 Respiratory Rate 16 16 Blood Pressure [Le ft Arm] 136/92 H 151/96 H Pulse Oximetry 98 98 98 Oxygen Delivery Me thod Room Air Room Air 10/14/24 23:20 10/15/24 02:32 10/15/24 07:00 Temperature 98.2 F Pulse Rate [Right Pulse Oximeter] 62 64 Respiratory Rate 16 16 Blood Pressure [Le ft Arm] 142/93 H Pulse Oximetry 98 98 Oxygen Delivery Me thod Room Air 10/15/24 07:00 10/15/24 11:00 Temperature 97.6 F 98.0 F Pulse Rate [Right Pulse Oximeter] 90 74 Respiratory Rate 18 20 Blood Pressure [Le ft Arm] 115/83 131/86 Pulse Oximetry 98 99 Oxygen Delivery Me thod Room Air Room Air Labs Labs: Laboratory Results - last 24 hr 10/15/24 05:45 WBC 8.79 RBC 4.32 Hgb 13.0 L Hct 37.9 MCV 88 MCH 30 MCHC 34 Plt Count 199 VBG pH 7.476 H VBG pCO2 35 L VBG pO2 36.3 VBG HCO3 26 Sodium 136 Potassium 3.6 Chloride 105 Carbon Dioxide 25 Anion Gap 6 L BUN 18 Creatinine 0.7 Estimated Creat Clear 60.73 Estimated GFR 95 Glucose 136 H Calcium 8.8 C-Reactive Protein 2.4 H Procalcitonin 0.07
--- NOTE | 2024-10-15 14:43 | CRLHL7_ITS ---
For Patients: As a result of the Century Cures Act, medical imaging exams and procedure reports are released immediately into your electronic medical record. You may view this report before your referring provider. If you have questions, please contact your health care provider. Indication: Profound weakness. Technique: Multiplanar multisequence noncontrast MR images of the brain. Comparison: CT brain 10/10/2024. Findings: Mild diffuse cerebral volume loss. No mass effect or midline shift. Minimal FLAIR hyperintensities in the supratentorial white matter, typical for chronic microvascular ischemic changes. No intracranial hemorrhage or pathologic extra-axial fluid collection. No diffusion restriction to suggest acute infarction. The major arterial flow voids of the skull base are preserved. Thinning of the ocular lenses. Small right maxillary sinus retention cyst. Mild paranasal sinus mucosal thickening. The mastoid air cells are clear. Impression: 1. No acute intracranial abnormality. 2. Mild diffuse cerebral volume loss and minimal chronic microvascular ischemic changes. Dictated by Filemon Connor MD @ 10/15/2024 5:04:43 PM (Electronically Signed)
[2024-10-15 15:00] VITALS: BP 147/91; PULSE 77; RESP 18; TEMP 36.7; O2SAT 98
[2024-10-15 15:20] LABS: Creatine Kinase* < 20 U/L (54-186)
[2024-10-15] MEDS: INSULIN ASPART 100 UNIT/ML SUBCUT ×2 (18:03→20:59)
[2024-10-15 19:00] VITALS: BP 132/84; PULSE 72; RESP 16; TEMP 36.6; O2SAT 98
[2024-10-15] MEDS: ENOXAPARIN 40 MG/0.4 ML INJ SUBCUT (20:57)
[2024-10-15 23:00] VITALS: BP 142/86; RESP 16; TEMP 36.7; O2SAT 98
--- NOTE | 2024-10-15 23:23 | PC.NURSE ---
End of shift Note (245)? ? Patient was very pleasant and cooperative throughout shift. He was admitted for increasing weakness and sepsis (10/11). Patient tolerated activity ordered very well and ambulated several times with one assist/walker during the shift. Appetite is good and states he feels ?much better?. Labs for tick borne disease and West Nile disease are pending. He has been receiving 1 unit of insulin with each meal. Lung sounds are clear. Patient had an MRI today due to acute delirium.?He reports feeling much better today.
[2024-10-16 02:56] VITALS: BP 140/94; PULSE 70; RESP 16; O2SAT 98
--- NOTE | 2024-10-16 05:21 | PC.NURSE ---
[id number] Pt slept well during night between cares/using br, stands up at bedside to use urinal, impulsive, did not use call light during night.
[2024-10-16 06:59] LABS: Ionized Calcium* 1.13 mmol/L (1.11-1.30); Lactate* 1.0 mmol/L (0.5-1.9)
[2024-10-16 07:01] LABS: Hematocrit 38.0 % (37.0-53.0); Hemoglobin* 13.2 gm/dL (13.5-17.5); Mean Corpuscular HGB Conc 35 gm/dL (32-36); Mean Corpuscular Hemoglobin 30 pg (26-34); Mean Corpuscular Volume 87 fL (80-100); Red Blood Count 4.36 m/uL (4.30-5.90); White Blood Count* 9.27 K/uL (4.50-11.00)
[2024-10-16 07:02] LABS: Slide Review Reflex No
[2024-10-16 07:14] LABS: Iron* 54 ug/dL (49-181)
[2024-10-16 07:23] LABS: Percent Iron Saturation 23 % (20-50); Total Iron Binding Capacity 242 ug/dL (261-462)
[2024-10-16 07:25] LABS: Chloride* 105 mmol/L (96-114); Potassium* 3.7 mmol/L (3.6-5.1); Sodium* 137 mmol/L (135-149)
[2024-10-16 07:28] LABS: Blood Urea Nitrogen* 20 mg/dL (7-30); Creatinine* 0.8 mg/dL (0.5-1.5); Est. Creatinine Clearance* 60.73; Estimated Glomerular Filt Rate 91 ml/min
[2024-10-16 07:29] LABS: Anion Gap 5 mEq/L (7-15); Calcium* 8.8 mg/dL (8.4-10.6); Carbon Dioxide* 27 mmol/L (20-32); Glucose* 136 mg/dL (60-115)
--- NOTE | 2024-10-16 07:45 | PM.IMPN1 ---
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 From mosquito bite. May take weeks to return to baseline. -symptoms started on or around 10/03 -first presented 10/09 to our ED. sent home with home care, virus NOS. He returned by EMS on 10/10 with delirium, fever, weakness. 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 He has slowly improved. His mentation is near normal, labs and vitals are all normal. He remains dizzy and significant fall risk. on 10/16 we got confirmation of +WNV. Previously broad spectrum abx were d/c'd and with +WNV I stopped the doxy. He is TCU ready/appropriate. WN virus is one of the most widely distributed of all arboviruses Nearly all human infections with WN virus are due to mosquito bites. Birds are the primary amplifying hosts, and the virus is maintained in a [id number] cycle. Humans, horses, and many other vertebrates serve as incidental hosts and are not felt to be important for transmission since viremia is both short-lived and low-grade Nigerien crows and other [place] Nigerien corvids (ravens, chiquis, and other crows) Status: Acute (2) Sepsis: Problem comment: RESOLVED On admission febrile, tachypneic, hypotensive, leukocytosis with left shift - trending down, lactate 2.7 - normalized to 1.3, VBG pH 7.449, pCO2 33 Unknown source on admission Received sepsis resuscitation fluids, NS 30 mL/kg for a total of 2259 mL on admission Received Zosyn and vancomycin in ED -> started on cefepime and continued on vancomycin on admission-> doxycycline added for Lyme coverage Continue oral doxycycline (changed from IV as tolerating oral today, 10/12) Continue NS at 125ml until appropriate oral intake, monitor for fluid overload Status: Resolved (3) Weakness: Problem comment: -secondary to encephalitis and deconditioning -appropriate for TCU care Status: Acute (4) Delirium: Problem comment: Resolved acute hospital delirium, somnolence CT head 10/10 without acute intracranial findings, follow-up brain MRI 10/15 normal Status: Acute (5) Thrombocytopenia: Problem comment: Resolved Status: Acute (6) Hyponatremia: Problem comment: resolved Status: Acute (7) Hyperlipidemia: Problem comment: Continue statin Status: Acute (8) Essential hypertension: Problem comment: Ramipril held on admission (sepsis, hypotension) - resume when appropriate Status: Acute (9) Type 2 diabetes mellitus: Problem comment: With neuropathy, history of diabetic ulcers Most recent A1c 6.8 restarted metformin at lower dose on 10/16 Insulin sliding scale d/c'd 10/16 Status: Acute (10) Pulmonary nodule: Problem comment: CT shows Stable pulmonary nodules when compared to previous CT of the chest from 06/01/2024 with largest measuring 12 mm within the right lower lobe Referred to [facility] 07/22, they recommend repeat [address] with them Status: Acute Subjective Date Seen: 10/16/24 Interval history: Daily Progress Note - Hospital Medicine #: 6 CC: Febrile illness, delirium 24 HOUR UPDATE: Improving slowly. Remains quite weak which is way off his baseline, significant fatigue. He has defervesced. Notable Labs, Micro, Rads, Interventions: -UC and BC NGTD. -MRSA negative CBC is down trending. White count has gone from 19.2 down to 8.7 Electrolytes are unremarkable, normal renal function. CRP was checked on admission 10/10, 1.0 but now 816 it is 2.3-2.6 Babesia (babeosis) neg ehrlichia neg anaplasma neg Lyme neg West Nile POSITIVE Objective: He looks tired and talks slowly. 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 He can talk about casual topics. 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 Vitals: see above HEENT: Patient points to a scab behind his right ear. He noted it was a little tender maybe about a week ago. No tick was noted. I see a small lesion that is very minimally elevated. No target or bull's eye appearance. No obvious lymphadenopathy. No obvious evidence of a tick. Lungs: Clear. Cardiac: S1S2. Disposition/Potential discharge - rehab appropriate Today I spent 50minutes seeing the patient, reviewing Expanse and EPIC notes/diagnostics, discussing the care plan with our care time that includes social work, PT/OT, pharmacy, RT, retirement and documenting my impressions and plan in the medical record. Exam Const: Vital Signs, click to edit/add: Vital Signs - 24 hr 10/15/24 11:00 08/18/25 15:00 10/15/24 15:00 Temperature 98.0 F 98.0 F Pulse Rate [Right Pulse Oximeter] 74 77 Respiratory Rate 20 18 Blood Pressure [Le ft Arm] 131/86 147/91 H Pulse Oximetry 99 98 98 Oxygen Delivery Me thod Room Air Room Air 10/15/24 15:00 10/15/24 19:00 10/15/24 23:00 Temperature 98 F Pulse Rate [Right Pulse Oximeter] 77 72 Respiratory Rate 16 Blood Pressure [Le ft Arm] 132/84 Pulse Oximetry 98 98 Oxygen Delivery Me thod Room Air 10/15/24 23:00 10/16/24 02:56 Temperature 98.0 F Pulse Rate [Right Pulse Oximeter] 70 Respiratory Rate 16 16 Blood Pressure [Le ft Arm] 142/86 H 140/94 H Pulse Oximetry 98 98 Oxygen Delivery Me thod Room Air Room Air Labs Labs: Laboratory Results - last 24 hr 10/11/24 10/15/24 10/15/24 06:04 05:45 14:46 WBC RBC Hgb Hct MCV MCH MCHC Plt Count Lactate Ionized Calcium Carli Total Creatine Kinase < 20 L Troponin I < 0.01 West Nile Virus IgG Ab 1.29 West Nile Virus IgM Ab 6.63 H Lab Acknowledgement Test Added 10/16/24 06:03 WBC 9.27 RBC 4.36 Hgb 13.2 L Hct 38.0 MCV 87 MCH 30 MCHC 35 Plt Count 236 Lactate 1.0 Ionized Calcium Carli 1.13 Total Creatine Kinase Troponin I West Nile Virus IgG Ab West Nile Virus IgM Ab Lab Acknowledgement
[2024-10-16 07:49] VITALS: BP 132/82; PULSE 79; RESP 22; TEMP 36.6; O2SAT 97
[2024-10-16] MEDS: ACETAMINOPHEN 500 MG TABLET 1000 MG PO (08:05)
[2024-10-16] MEDS: INSULIN ASPART 100 UNIT/ML SUBCUT ×2 (08:05→11:41)
[2024-10-16 08:06] LABS: Erythrocyte SedimentationRate* 7 mm/hr (2-15)
[2024-10-16] MEDS: ASPIRIN 81 MG TAB.CHEW PO (09:29)
[2024-10-16] MEDS: SODIUM CHLORIDE 0.9 % (FLUSH) 10 ML SYRINGE 5 ML IVF ×2 (09:30→20:51)
[2024-10-16 11:36] VITALS: BP 126/79; PULSE 72; RESP 20; TEMP 36.6; O2SAT 99
[2024-10-16 15:46] VITALS: BP 150/90; PULSE 72; RESP 16; TEMP 36.4; O2SAT 98
--- NOTE | 2024-10-16 16:53 | PC.SOCIAL ---
Addendum entered by TERRELL Stephenson 10/16/24 17:03: Discharge planning: Pt's insurance will also require co-pays starting at days 21-100 at $214.00 a day. color drum worker spoke with pt's , Loren, via phone about pt's Medicare co-pays and she is fine with paying the co-pays if/when it is needed. Estefanía at [facility] will submit the prior authorization. Social work to follow-up as needed. Original Note: Discharge planning: Pt has been accepted to [facility] for short-term rehab. Pt's insurance requires a prior authorization before he can admit to [facility]. [facility] will submit the prior authorization. Social work to follow-up as needed.
[2024-10-16] MEDS: METFORMIN 500 MG TABLET 1000 MG PO (17:42)
[2024-10-16 19:00] VITALS: BP 126/85; PULSE 67; RESP 16; TEMP 36.8; O2SAT 96
--- NOTE | 2024-10-16 20:02 | PC.NURSE ---
End of Shift: Patient pleasant and cooperative, alert and orient, but slow to respond at times. Patient is vitally stable, lungs clear, BS WNL, IV SL and intact. Patient given tylenol for a headache once, otherwise patient denies pain. Patient is 1 assist/walker/gb. Patient is tolerating regular diet, and urinating by urinal and at toilet, no BM. Blood sugars were 152, 169, 214.
[2024-10-16] MEDS: ENOXAPARIN 40 MG/0.4 ML INJ SUBCUT (20:51)
[2024-10-17] VITALS (9 sets, daily range): BP systolic 109–137; BP diastolic 73–91; PULSE 71–82; RESP 16–18; TEMP 36.6–36.9; O2SAT 95–99
--- NOTE | 2024-10-17 06:23 | PC.NURSE ---
Pt is alert and oriented x3. Afebrile. Pt denies pain, SOB, and N/V. Pt is up SBA with walker and gait belt, voiding and tolerating a therapeutic diet. ?
[2024-10-17 06:28] LABS: Hematocrit 35.9 % (37.0-53.0); Hemoglobin* 12.4 gm/dL (13.5-17.5); Mean Corpuscular HGB Conc 35 gm/dL (32-36); Mean Corpuscular Hemoglobin 31 pg (26-34); Mean Corpuscular Volume 88 fL (80-100); Red Blood Count 4.06 m/uL (4.30-5.90); White Blood Count* 9.39 K/uL (4.50-11.00)
[2024-10-17 06:29] LABS: Slide Review Reflex No
[2024-10-17 06:35] LABS: Chloride* 107 mmol/L (96-114); Potassium* 3.5 mmol/L (3.6-5.1); Sodium* 137 mmol/L (135-149)
[2024-10-17 06:39] LABS: Anion Gap 6 mEq/L (7-15); Blood Urea Nitrogen* 19 mg/dL (7-30); Calcium* 8.8 mg/dL (8.4-10.6); Carbon Dioxide* 24 mmol/L (20-32); Creatinine* 0.8 mg/dL (0.5-1.5); Est. Creatinine Clearance* 63.18; Estimated Glomerular Filt Rate 91 ml/min; Glucose* 129 mg/dL (60-115)
[2024-10-17] MEDS: METFORMIN 500 MG TABLET 1000 MG PO ×2 (08:55→17:48)
[2024-10-17] MEDS: ASPIRIN 81 MG TAB.CHEW PO (08:56)
[2024-10-17] MEDS: SODIUM CHLORIDE 0.9 % (FLUSH) 10 ML SYRINGE 5 ML IVF ×2 (08:56→20:55)
--- NOTE | 2024-10-17 12:13 | PC.SOCIAL ---
Addendum entered by TERRELL Stephenson 10/17/24 17:01: Discharge planning: Pt's son plans to transport him to [facility] in the morning around 9:30-10am. This social work faculty member notified Estefanía at [facility] and the charge nurse on duty. [facility] should just need his discharge orders in the morning. Social work to follow-up as needed. Addendum entered by TERRELL Stephenson 10/17/24 16:34: Discharge planning: Pt's insurance prior authorization came back mid afternoon for this patient. The plan will be for him to admit to [facility] tomorrow before 2pm. Pre-admission screening confirmation/information was sent to Estefanía at [facility] via secure email. [id number]. Social work to follow-up as needed. Addendum entered by TERRELL Stephenson 10/17/24 14:15: Discharge planning: protective services case worker updated the pt and his family about the insurance prior authorization having not been received by [facility] yet. Pt and his family understood. Pt's family did state that they feel comfortable transporting the pt to [facility] and will do that when he discharges. Social work to follow-up as needed. Original Note: Discharge planning: protective services case worker heard from Estefanía at [facility] that they are still waiting on the prior authorization from [facility] to come back before they can admit the pt to their facility. Social work to follow-up as needed.
--- NOTE | 2024-10-17 13:55 | PM.IMPN1 ---
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 From mosquito bite. May take weeks to return to baseline. -symptoms started on or around 10/03 -first presented 10/09 to our ED. sent home with home care, virus NOS. He returned by EMS on 10/10 with delirium, fever, weakness. Admitted on chief pilot hours of 10/11 - treated as sepsis, acute delirium and fever of unknown origin. He has slowly improved. His mentation is near normal, labs and vitals are all normal. He remains dizzy and significant fall risk. on 10/16 we got confirmation of +WNV. Previously broad spectrum abx were d/c'd and with +WNV I stopped the doxy. He is TCU ready/appropriate. WN virus is one of the most widely distributed of all arboviruses Nearly all human infections with WN virus are due to mosquito bites. Birds are the primary amplifying hosts, and the virus is maintained in a pyjb-avawpaez-wnfy cycle. Humans, horses, and many other vertebrates serve as incidental hosts and are not felt to be important for transmission since viremia is both short-lived and low-grade [place] crows and other [place] corvids (ravens, chiquis, and other crows) Status: Acute (2) Sepsis: Problem comment: RESOLVED On admission febrile, tachypneic, hypotensive, leukocytosis with left shift - trending down, lactate 2.7 - normalized to 1.3, VBG pH 7.449, pCO2 33 Unknown source on admission Received sepsis resuscitation fluids, NS 30 mL/kg for a total of 2259 mL on admission Received Zosyn and vancomycin in ED -> started on cefepime and continued on vancomycin on admission-> doxycycline added for Lyme coverage Continue oral doxycycline (changed from IV as tolerating oral today, 10/12) Continue NS at 125ml until appropriate oral intake, monitor for fluid overload Status: Resolved (3) Weakness: Problem comment: -secondary to encephalitis and deconditioning -appropriate for TCU care Status: Acute (4) Delirium: Problem comment: Resolved acute hospital delirium, somnolence CT head 10/10 without acute intracranial findings, follow-up brain MRI 10/15 normal Status: Acute (5) Thrombocytopenia: Problem comment: Resolved Status: Resolved (6) Hyponatremia: Problem comment: resolved Status: Resolved (7) Hyperlipidemia: Problem comment: Continue statin Status: Acute (8) Essential hypertension: Problem comment: Ramipril restarted Status: Acute (9) Type 2 diabetes mellitus: Problem comment: With neuropathy, history of diabetic ulcers Most recent A1c 6.8 restarted metformin at lower dose on 10/16 Insulin sliding scale d/c'd 10/16 Status: Acute (10) Pulmonary nodule: Problem comment: CT shows Stable pulmonary nodules when compared to previous CT of the chest from 06/01/2024 with largest measuring 12 mm within the right lower lobe Referred to [facility] 07/22, they recommend repeat [address] with them Status: Acute Plan Awaiting placement, prior authorization at [facility] Total Time Spent Total Time Spent: Today I spent 45 minutes seeing the patient, reviewing Expanse and EPIC notes/diagnostics, discussing the care plan with our care time that includes social work, PT/OT, pharmacy, RT, chcf and documenting my impressions and plan in the medical record. Subjective Date Seen: 10/17/24 Interval history: Patient is seen sitting reclined in bed. Reports feeling better. Less acutely confused when compared to last week when I saw him. Denies headache or dizziness. Denies chest pain or shortness of breath. Tolerating orals without nausea vomiting. Awaiting prior authorization for [facility] placement per psychosocial rehabilitation counselor. Exam Narrative: Exam Narrative: PHYSICAL EXAM General: Much more alert, less somnolent when compared to last week. Appears tired otherwise NAD HEENT: Normocephalic, atraumatic, sclera white, EOMI, oral mucosa moist Cardiovascular: RRR, S1S2. No pitting edema Pulmonary: CTA bilaterally without rhonchi, rales, expiratory wheezes. No dyspnea on room air Neurological: Alert, answering questions appropriately this morning, cranial nerves intact, no focal findings Extremities: No gross joint deformity or swelling. AROMI. Neurovascularly intact Skin: Warm, dry. Const: Vital Signs, click to edit/add: Vital Signs - 24 hr 10/16/24 15:46 10/16/24 15:46 10/16/24 15:46 Temperature 97.5 F L Pulse Rate [Right Pulse Oximeter] 72 72 Respiratory Rate 16 16 Blood Pressure [Le ft Arm] 150/90 H Pulse Oximetry 98 98 Oxygen Delivery Me thod Room Air 10/16/24 19:00 10/17/24 00:45 10/17/24 00:45 Temperature 98.2 F 98.2 F Pulse Rate [Right Pulse Oximeter] 67 77 Respiratory Rate 16 16 Blood Pressure [Le ft Arm] 126/85 121/82 Pulse Oximetry 96 98 98 Oxygen Delivery Mt thod Room Air Room Air 10/17/24 03:00 10/17/24 07:46 10/17/24 07:47 Temperature 98.0 F 98.1 F Pulse Rate [Right Pulse Oximeter] 82 71 Respiratory Rate 18 16 Blood Pressure [Le ft Arm] 136/89 137/91 H Pulse Oximetry 97 95 95 Oxygen Delivery Mt thod Room Air Room Air 10/17/24 10:38 Temperature 98 F Pulse Rate [Right Pulse Oximeter] 73 Respiratory Rate 16 Blood Pressure [Le ft Arm] 129/86 Pulse Oximetry 97 Oxygen Delivery Mt thod Room Air Labs Labs: Laboratory Results - last 24 hr 10/17/24 05:49 WBC 9.39 RBC 4.06 L Hgb 12.4 L Hct 35.9 L MCV 88 MCH 31 MCHC 35 Plt Count 241 Sodium 137 Potassium 3.5 L Chloride 107 Carbon Dioxide 24 Anion Gap 6 L BUN 19 Creatinine 0.8 Estimated Creat Clear 63.18 Estimated GFR 91 Glucose 129 H Calcium 8.8 C-Reactive Protein 0.5
--- NOTE | 2024-10-17 14:07 | PC.NURSE ---
End of shift [id number]: Pt AxOx4, cooperative, and pleasant with cares. Intermittent forgetfulness. SBA GB W. Walking hallways. Tolerating diet and fluids well. Denies pain. BM today. Continent of bladder and bowels. Pt reported a slight headache this am that was resolved with caffeine.?Family visited today. Pt appears resting with call light in reach. ?
[2024-10-17] MEDS: ENOXAPARIN 40 MG/0.4 ML INJ SUBCUT (20:46)
[2024-10-18 02:22] VITALS: BP 126/80; PULSE 67; RESP 16; TEMP 36.7; O2SAT 98
[2024-10-18 06:38] LABS: Hematocrit 35.4 % (37.0-53.0); Hemoglobin* 11.9 gm/dL (13.5-17.5); Mean Corpuscular HGB Conc 34 gm/dL (32-36); Mean Corpuscular Hemoglobin 30 pg (26-34); Mean Corpuscular Volume 90 fL (80-100); Red Blood Count 3.94 m/uL (4.30-5.90); White Blood Count* 8.79 K/uL (4.50-11.00)
[2024-10-18 06:45] LABS: Slide Review Reflex No
[2024-10-18 06:53] LABS: Chloride* 106 mmol/L (96-114); Potassium* 3.8 mmol/L (3.6-5.1); Sodium* 138 mmol/L (135-149)
--- NOTE | 2024-10-18 06:54 | PC.NURSE ---
End of shift: Pt pleasant, alert and oriented with intermittent forgetfulness/confusion. Utilizes call light appropriately. VSS. Denied pain. SBA with GB and walker. Pt in bed, appears to be resting call light within reach.?
[2024-10-18 06:57] LABS: Anion Gap 7 mEq/L (7-15); Blood Urea Nitrogen* 19 mg/dL (7-30); Calcium* 8.8 mg/dL (8.4-10.6); Carbon Dioxide* 25 mmol/L (20-32); Creatinine* 0.8 mg/dL (0.5-1.5); Est. Creatinine Clearance* 63.70; Estimated Glomerular Filt Rate 91 ml/min; Glucose* 117 mg/dL (60-115)
[2024-10-18] MEDS: METFORMIN 500 MG TABLET 1000 MG PO (08:21)
[2024-10-18] MEDS: ASPIRIN 81 MG TAB.CHEW PO (08:22)
[2024-10-18 08:30] VITALS: BP 129/84; PULSE 74; RESP 16; TEMP 36.7; O2SAT 98
--- NOTE | 2024-10-18 08:49 | PC.NURSE ---
Pt pleasant and cooperative, up A1 walker and belt to chair this morning, declining pain, takes pills with water and applesauce.
--- NOTE | 2024-10-18 08:59 | P.DS_ITS ---
DS: Providers Provider Date Seen: 10/18/24 Date of admission: 10/11/24 02:28 Primary care physician: Suleiman Barajas MD Admitting Clinician: Marshall Samayoa MD Consults: 10/12/24 11:03 Consult to Infectious Diseases [CONS] Routine Comment: Consulting Provider: [facility] 10/13/24 09:04 Consult to Occupational Therapy [CONS] Routine Comment: Reason(s) for OT Consult:: Evaluate and Treat Any Restrictions?:: No Restrictions Consult to Physical Therapy [CONS] Routine Comment: Reason(s) for PT Consult:: Weakness Any Restrictions?:: No Restrictions Attending Physician on discharge: MIKY Phelps, MARILYNN [facility] Date of Discharge: 10/18/24 DS: Diagnosis Discharge Diagnosis (1) West Nile encephalitis: Status: Acute Problem details: -Supportive care. Not contagious. From mosquito bite. May take weeks to return to baseline. -symptoms started on or around 10/03 -first presented 10/09 to our ED. sent home with home care, virus NOS. He returned by EMS on 10/10 with delirium, fever, weakness. Admitted on e commerce manager hours of 10/11 - treated as sepsis, acute delirium and fever of unknown origin. He has slowly improved. His mentation is near normal, labs and vitals are all normal. on 10/16 we got confirmation of +WNV. Previously broad spectrum abx were d/c'd and with +WNV I stopped the doxy. Discharge to TCU with supportive cares as needed WN virus is one of the most widely distributed of all arboviruses Nearly all human infections with WN virus are due to mosquito bites. Birds are the primary amplifying hosts, and the virus is maintained in a ervt-zoqepuiz-qlet cycle. Humans, horses, and many other vertebrates serve as in cidental hosts and are not felt to be important for transmission since viremia is both short-lived and low-grade [place] crows and other [place] corvids (ravens, chiquis, and other crows) (2) Sepsis: Status: Resolved Problem details: RESOLVED On admission febrile, tachypneic, hypotensive, leukocytosis with left shift - trending down, lactate 2.7 - normalized to 1.3, VBG pH 7.449, pCO2 33 Unknown source on admission Received sepsis resuscitation fluids, NS 30 mL/kg for a total of 2259 mL on ad mission Received Zosyn and vancomycin in ED -> started on cefepime and continued on vancomycin on admission-> doxycycline added for Lyme coverage Continue oral doxycycline (changed from IV as tolerating oral today, 10/12) Continue NS at 125ml until appropriate oral intake, monitor for fluid overload (3) Weakness: Status: Acute Problem details: -secondary to encephalitis and deconditioning -appropriate for TCU care Discharge to TCU with ongoing PT/OT (4) Delirium: Status: Resolved Problem details: RESOLVED acute hospital delirium, somnolence CT head 10/10 without acute intracranial findings, follow-up brain MRI 10/15 normal (5) Thrombocytopenia: Status: Resolved Problem details: Resolved (6) Hyponatremia: Status: Resolved Problem details: resolved (7) Hyperlipidemia: Status: Acute Problem details: Continue statin (8) Essential hypertension: Status: Acute Problem details: Continue ramipril (9) Type 2 diabetes mellitus: Status: Acute Problem details: With neuropathy, history of diabetic ulcers Most recent A1c 6.8 Continue home medications (10) Pulmonary nodule: Status: Acute Problem details: CT shows Stable pulmonary nodules when compared to previous CT of the chest from 06/01/2024 with largest measuring 12 mm within the right lower lobe Referred to [facility] 07/22, they recommend repeat [address] with them DS: Summary Hospital Course Hospital Course: Course of care and details as noted above. Admitted with fever of unknown origin, sepsis, resolved. Developed hospital delirium, resolved. West Nile virus identified. All antibiotics were stopped. PT/OT consulted, recommending TCU. Discharge to [facility]. Remainder of chronic medical comorbidities were monitored and managed with home medications. Status at Discharge Overall status at discharge: patient is progressing back to baseline Time Spent with Patient Time attestation: Total time spent providing and/or coordinating discharge services: Time spent: Greater than 30 minutes Exam Narrative: Exam Narrative: PHYSICAL EXAM General: Pleasant, conversant, NAD Cardiovascular: RRR Pulmonary: No dyspnea Neurological: Alert, answering questions appropriately Skin: Warm, dry. Const: Vital Signs, click to edit/add: Vital Signs - 24 hr 10/17/24 10:38 10/17/24 15:00 10/17/24 15:00 Temperature 98 F Pulse Rate [Right Pulse Oximeter] 73 76 Respiratory Rate 16 16 Blood Pressure [Le ft Arm] 129/86 Blood Pressure [Ri ght Arm] Pulse Oximetry 97 99 Oxygen Delivery Me thod Room Air 10/17/24 15:00 10/17/24 19:42 10/17/24 23:00 Temperature 98.4 F 98.1 F Pulse Rate [Right Pulse Oximeter] 76 79 79 Respiratory Rate 18 16 16 Blood Pressure [Le ft Arm] Blood Pressure [Ri ght Arm] 136/83 109/73 Pulse Oximetry 99 98 Oxygen Delivery Me thod Room Air Room Air 10/17/24 23:30 10/17/24 23:30 10/18/24 02:22 Temperature 98.3 F 98.1 F Pulse Rate [Right Pulse Oximeter] 79 67 Respiratory Rate 18 16 Blood Pressure [Le ft Arm] Blood Pressure [Ri ght Arm] 127/80 126/80 Pulse Oximetry 97 97 98 Oxygen Delivery Me thod Room Air Room Air 10/18/24 08:30 10/18/24 08:30 Temperature 98.1 F Pulse Rate [Right Pulse Oximeter] 74 Respiratory Rate 16 Blood Pressure [Le ft Arm] 129/84 Blood Pressure [Ri ght Arm] Pulse Oximetry 98 98 Oxygen Delivery Me thod Room Air DS: Data Data Completed and Pending Labs on day of discharge: Labs from last 24 hours 10/18/24 10/16/24 06:04 06:03 WBC 8.79 RBC 3.94 L Hgb 11.9 L Hct 35.4 L MCV 90 MCH 30 MCHC 34 Plt Count 267 Peripher Smr Path Cons See Scanned Report Sodium 138 Potassium 3.8 Chloride 106 Carbon Dioxide 25 Anion Gap 7 BUN 19 Creatinine 0.8 Estimated Creat Clear 63.70 Estimated GFR 91 Glucose 117 H Calcium 8.8 C-Reactive Protein 0.7 [address] Brain: Attestation: I have reviewed the pertinent imaging results. Radiologist's impression: Mild diffuse cerebral volume loss. No mass effect or midline shift. Minimal FLAIR hyperintensities in the supratentorial white matter, typical for chronic microvascular ischemic changes. No intracranial hemorrhage or pathologic extra-axial fluid collection. No diffusion restriction to suggest acute infarction. The major arterial flow voids of the skull base are preserved. Thinning of the ocular lenses. Small right maxillary sinus retention cyst. Mild paranasal sinus mucosal thickening. The mastoid air cells are clear. Impression: 1. No acute intracranial abnormality. 2. Mild diffuse cerebral volume loss and minimal chronic microvascular ischemic changes. CT Chest/Ab/Pelvis: Attestation: I have reviewed the pertinent imaging results. Radiologist's impression: CHEST: Cardiovascular structures: No cardiomegaly or pericardial effusion. There are coronary artery calcifications. Main pulmonary artery is normal in caliber. No thoracic aortic aneurysm. Mediastinum and [place]: No suspicious lymphadenopathy. Lungs and pleura: Right lower lobe pulmonary nodule measuring 12 mm (series 3, image 53), unchanged. Additional smaller bilateral pulmonary nodules also grossly unchanged. Stable fibrotic changes. No focal consolidation. No pleural effusion or pneumothorax. Patent central airways. Chest wall and axilla: No suspicious chest wall mass or fluid collection. No axillary lymphadenopathy. Bones: No acute abnormality. ABDOMEN AND PELVIS: Liver: Unremarkable. Gallbladder and bile ducts: Cholelithiasis. No gallbladder wall thickening or pericholecystic fluid. No biliary dilatation. Pancreas: Unremarkable. Spleen: Unremarkable. Adrenal glands: Unremarkable. Kidneys: Symmetric renal enhancement. No hydronephrosis or hydroureter. No urinary calculi identified. GI tract: No bowel obstruction. No suspicious bowel wall thickening. Normal appendix. Vascular structures: Grossly patent vasculature. No abdominal aortic aneurysm. Minimal atherosclerotic calcification. Lymph nodes: No suspicious lymphadenopathy. Peritoneum/Retroperitoneum/Abdominal Wall: No ascites or pneumoperitoneum. No acute abdominal wall abnormality. No intra-abdominal/pelvic fluid collection. Chronic bilateral L5 spondylolysis. Right-sided S1-S2 Tarlov cyst. Pelvic Organs: Watkins catheter noted within the bladder with small foci of intraluminal bladder gas, likely postprocedural. Mild bladder wall thickening. Mild prostatomegaly. Bones and superficial soft tissues: No acute abnormality. IMPRESSION: 1. Mild bladder wall thickening may be exaggerated by underdistention, however clinical correlation recommended to exclude cystitis. 2. Otherwise no acute intrathoracic or intra-abdominal/pelvic pathology appreciated. 3. Cholelithiasis without CT evidence of acute cholecystitis. 4. Stable pulmonary nodules when compared to previous CT of the chest from 06/01/2024 with largest measuring 12 mm within the right lower lobe. Consider follow-up CT chest in 3-6 months to ensure continued stability. 5. Mild prostatomegaly. CT scan - head: Attestation: I have reviewed the pertinent imaging results. Radiologist's impression: CSF spaces: Within normal limits for age. Brain parenchyma and extra-axial spaces: Mild generalized volume loss consistent with physiologic aging. Mild periventricular white matter hypoattenuation suggestive of chronic microvascular disease. No sign of mass, hemorrhage, or midline shift. No extra-axial fluid collection. Skull base and calvarium: Mild bilateral paranasal sinus mucosal thickening with small maxillary sinus mucous retention cysts. Mastoids are clear. Bilateral lens replacements. Mild right frontal scalp soft tissue swelling, but no underlying fracture. IMPRESSION: No acute intracranial abnormality. No acute fracture. Chest x-ray: Attestation: I have reviewed the pertinent imaging results. Radiologist's impression: Unremarkable cardiomediastinal contours. Redemonstrated diffuse interstitial prominence in the setting of previously demonstrated interstitial lung disease. Right inferior perihilar 1.1 cm nodular focus may reflect the focused demonstrated on the prior CT chest. Otherwise, no evident new focal consolidation. No sign of pleural effusion. No pneumothorax. No acute osseous or soft tissue findings. IMPRESSION: 1. No evident new focal consolidation. 2. Right inferior perihilar 1.1 cm nodular focus may reflect the focused demonstrated on the prior CT chest. Notably, the report from 06/01/2024 recommended a follow-up CT chest in 3 months, PET-CT, or tissue sampling. There are no evident interval follow-up studies at this institution. Discharge Plan Discharge Disposition: [facility] Discharge Location: [facility] Date of Admission: 10/11/24 02:28 Attending Provider on Discharge: Laney Hirsch Consulting Providers: Gema Steele; Mary Beth Bowie Primary Care Provider: Suleiman Barajas Condition: Improved Anticipated Discharge Date/Time: 10/18/24 08:54 Discharge Medications: Continued aspirin 81 mg tablet,chewable 81 mg PO QDAY ramipril 10 mg capsule 20 mg PO QDAY Qty: 180 3RF simvastatin 40 mg tablet 40 mg PO .Bedtime Qty: 90 1RF metformin 500 mg tablet 500 mg PO .COMPLEX Qty: 450 1RF Rx Instructions: 500 mg PO Take 3 tablets in the morning, take 2 tablets in the evening.; semaglutide 0.25 mg or 0.5 mg (2 mg/3 mL) pen injector 0.25 mg subcut QWEEK Qty: 9 3RF Rx Instructions: for 4 weeks Discharge Orders: Discharge Order (Routine); Ordered 10/18/24 Ordered By: Laney Hirsch Activity Level: Activity as Tolerated Discharge Diet: Diabetic Follow Up Appointments: Suleiman Barajas MD [Primary Care Provider, Internal Medicine] Forms: Patient Belongings, [facility] Info Instructions Admit to: SNF Discharge Potential: Good Length of Stay: <30 days Can use facility standing orders?: Yes Code Status: Full Code Rehab Potential: Good Therapy: Physical Therapy and Occupational Therapy Therapy Orders: Evaluate and Treat Oxygen: No Urinary Catheter: No Orders are good >30 days: No Signature: MIKY Phelps, PA-C [place] Hospitalist
--- NOTE | 2024-10-18 09:15 | PC.SOCIAL ---
Discharge planning: Called and faxed discharge orders to Estefanía at [facility]. Family is at the hospital and ready to transport pt. Family is pleased with discharge plan for [facility] today.
--- NOTE | 2024-10-18 10:09 | PC.NURSE ---
Pt discharged at 1000 via wheelchair, accompanied by family. IV removed. Going to [facility]. [facility] folder sent with family. Pt in good condition, denies pain. DC forms signed. Nurse to nurse report given. Final room check complete.
== END 2024-10-18 10:00 | DRG 865 ==
LOC: ED 10-11 01:37 → MEDSURG 10-11 02:06
PROVIDERS: Family Medicine; Physician Assistant; Admitting Provider Internal Medicine; Emergency Provider Family Medicine; PCP Internal Medicine; Visit Provider Internal Medicine
DX: A92.31 West Nile virus infection with encephalitis (principal); A41.89 Other specified sepsis; E87.1 Hypo-osmolality and hyponatremia; R41.0 Disorientation, unspecified; R51.9 Headache, unspecified; E11.40 Type 2 diabetes mellitus with diabetic neuropathy, unspecified; R91.1 Solitary pulmonary nodule; D69.6 Thrombocytopenia, unspecified; I10 Essential (primary) hypertension; Z79.85 Long-term (current) use of injectable non-insulin antidiabetic drugs; Z79.84 Long term (current) use of oral hypoglycemic drugs; Z79.82 Long term (current) use of aspirin; E78.5 Hyperlipidemia, unspecified; Z87.442 Personal history of urinary calculi
CPT/HCPCS: 36415; 70450; 70551; 71045; 71260; 74176; 74177; 80048; 80076; 81001; 82330; 82550; 82728; 82803; 82947; 82962; 83540; 83550; 83605; 83735; 84145; 84443; 84484; 85025; 85027; 85651; 86140; 86618; 86789; 87040; 87081; 87086; 87468; 87469; 87484; 87631; 87798; 93005; 94761; 97110; 97112; 97116; 97162; 97165; 97530; 97535; 99284; 99285; A9270; J0131; J0692; J1650; J2405; J2543; J2765; J3375; J7030; Q9967

== ENCOUNTER 2024-11-13 09:06 | Outpatient (CLI) | payer MEDICARE, SELFPAY | END 2024-11-13 09:07 | disposition home or self-care (01) | LOC: NFLDREF 09:09 | PROVIDERS: PCP Internal Medicine; Visit Provider Internal Medicine | DX: E11.9 Type 2 diabetes mellitus without complications (principal) | CPT/HCPCS: 80053 ==